=== PATIENT | female | born 1975 | race Caucasian/White ===

== ENCOUNTER 2022-11-18 18:36 | Emergency (ER) | payer OTHER, SELFPAY ==
[2022-11-18 18:48] VITALS: BP 115/84; PULSE 88; RESP 18; O2SAT 99
[2022-11-18 18:50] VITALS: BP 135/92; PULSE 70; RESP 22; TEMP 36.6; O2SAT 99; BMI 33.6
--- NOTE | 2022-11-18 19:30 | ED.NURSE ---
started #20 jelco as a saline lock in the LAC and able to draw the labs from site. POC trop started and pending results. patient is feeling nauseated and would like something for this.
[2022-11-18 19:46] VITALS: BP 118/82; PULSE 76; RESP 18; O2SAT 98; O2SAT 99
--- NOTE | 2022-11-18 19:46 | CRLHL7_ITS ---
For Patients: As a result of the Century Cures Act, medical imaging exams and procedure reports are released immediately into your electronic medical record. You may view this report before your referring provider. If you have questions, please contact your health care provider. INDICATION: Chest pain. TECHNIQUE: CT chest PE was acquired with 95 cc Isovue 370 IV contrast. COMPARISON: None. FINDINGS: Heart and vasculature: Contrast opacification of the pulmonary arterial tree is adequate. No sign of pulmonary embolism. Heart size is normal. Thoracic aorta and pulmonary artery are normal in caliber. Lungs and pleura: No suspicious nodules or infiltrates. No pleural effusions, pleural thickening, or pneumothorax. Lymph nodes/mediastinum: No mediastinal, hilar, or axillary adenopathy. Chest wall: No masses. Upper abdomen: No acute or significant findings. Bones: Unremarkable for age. IMPRESSION: No pulmonary embolism, as questioned. Please note that all CT scans at this facility use dose modulation, iterative reconstruction, and/or weight-based dosing when appropriate to reduce radiation dose to as low as reasonably achievable. Dictated by James Chen MD @ 11/18/2022 8:44:32 PM (Electronically Signed)
--- NOTE | 2022-11-18 19:46 | CRLHL7_ITS ---
For Patients: As a result of the Century Cures Act, medical imaging exams and procedure reports are released immediately into your electronic medical record. You may view this report before your referring provider. If you have questions, please contact your health care provider. DATE: 11/18/2022. CLINICAL HISTORY: Headache. TECHNIQUE: Standard helical CT image acquisition of the brain was performed. COMPARISON: None available. FINDINGS: There is no intracranial hemorrhage. No extra-axial collection, mass effect, or midline shift. Islas-white matter differentiation is preserved. The ventricles are normal in size and morphology for patient age. The calvarium is unremarkable. The orbits are unremarkable. The paranasal sinuses are unremarkable. The mastoid air cells are unremarkable. The soft tissues are unremarkable. IMPRESSION: No CT evidence of acute intracranial abnormality. Please note that all CT scans at this facility use dose modulation, iterative reconstruction, and/or weight-based dosing when appropriate to reduce radiation dose to as low as reasonably achievable. Dictated by Meet Jade MD @ 11/18/2022 8:53:03 PM (Electronically Signed)
--- NOTE | 2022-11-18 19:49 | ED_ITS ---
HPI - General Adult General Time Seen by Provider: 19:49 Date Seen: 11/18/22 Chief complaint: Chest Pain Stated complaint: Chest Pain/Heart Problem,Paramedics rec coming in Time Seen by Provider: 11/18/22 19:27 Source: patient Mode of arrival: ambulatory Limitations: no limitations History of Present Illness HPI narrative: Patient is a 39 year white female who has had problems for about a month with intermittent spells of tachycardia chest pain arm symptoms chest fluttering. She has consulted with her regular doctor through [facility], but also worked with a straw hat machine operator. She is currently got a ZIO patch onto her catch any arrhythmia. She was attempting to do a stress test and had 1 of these spells and had to stop the stress test. She reports she does not feel particularly anxious when these happen or prior them happening. She has been otherwise quite healthy and really has not had these since just after gi. She was recently [facility] and had negative troponins and a negative chest x-ray. She is following up with the straw hat machine operator at some point in the near future, and as mentioned as his eye patch on. At this time she still feels a little nauseated and dizzy and has benefitted from Zofran the past. She does not have chest pain. An ambulance was called, and they assessed her and felt she should be evaluated. But they did not bring her in. Related Data Allergies Allergy/AdvReac Type Severity Reaction Status Date / Time Penicillins Allergy Verified 11/18/22 20:02 Review of Systems Status of ROS: Reports: 10 or more systems reviewed and unremarkable except as noted in History and below PFSH PFS Social History Smoking Status: Light tobacco smoker What tobacco products do you use: cigarettes Do you use any of these nicotine containing products: None Second hand tobacco smoke exposure: Yes How often do you have a drink containing alcohol: never How often do you have six or more drinks on one occasion: Never AUDIT-C Alcohol total score: 0 Non-prescribed substance use: denies use service: No Exam Narrative: Exam Narrative: Objective: The patient is alert orient x3, vital signs unremarkable HEENT unremarkable no facial asymmetry mouth is clear neck is supple Chest is clear Heart rhythm regular heart murmur mild parasternal chest wall pain to palpation Abdomen benign soft no masses extremities without edema good peripheral perfusion Skin warm and dry Neurologic function is nonfocal Const: Vital Signs, click to edit/add: Vital Signs - 24 hr 11/18/22 18:50 11/18/22 19:46 11/18/22 18:48 Temperature 97.8 F Pulse Rate [Pulse Oximeter] 70 88 Respiratory Rate 22 18 Blood Pressure [Ri ght Upper Arm] 135/92 H 115/84 Pulse Oximetry 99 99 99 Oxygen Delivery Me thod Room Air Room Air 11/18/22 19:46 11/18/22 20:48 Temperature Pulse Rate [Pulse Oximeter] 76 92 Respiratory Rate 18 18 Blood Pressure [Ri ght Upper Arm] 118/82 122/76 Pulse Oximetry 98 99 Oxygen Delivery Me thod Room Air Room Air Course Vital Signs Vital signs: Initial Vital Signs Pulse Rate 88 11/18/22 18:48 Respiratory Rate 18 11/18/22 18:48 Respiratory Effort 11/18/22 18:48 Respiratory Depth Normal 11/18/22 18:48 Respiratory Pattern 11/18/22 18:48 Blood Pressure 115/84 11/18/22 18:48 Blood Pressure Mean 94 11/18/22 18:48 Blood Pressure Position Sitting 11/18/22 18:48 Pulse Oximetry 99 11/18/22 18:48 Oxygen Delivery Method 11/18/22 18:48 Vital Signs Pulse Rate 88 11/18/22 18:48 Respiratory Rate 18 11/18/22 18:48 Blood Pressure 115/84 11/18/22 18:48 Pulse Oximetry 99 11/18/22 18:48 Oxygen Delivery Method 11/18/22 18:48 Temperature 97.8 F 11/18/22 18:50 Pulse Rate 92 11/18/22 20:48 Respiratory Rate 18 11/18/22 20:48 Blood Pressure 122/76 11/18/22 20:48 Pulse Oximetry 99 11/18/22 20:48 Oxygen Delivery Method 11/18/22 20:48 Medical Decision Making MDM Narrative Medical decision making narrative: Patient has a complex history of intermittent 7 or 8 times having spells of fluttering chest, chest pain, arm pain, dizziness. The straw hat machine operator is evaluating her with a workup and has suggested neurology of Cardiology findings are not present. She has been largely healthy with no chronic health problems. Denies any significant anxiety issue. She is here at the recommendation of the paramedics. Her differential be long including arrhythmia of some sort, thoracic pathology, ADULT DAY CARE WORKER pathology. I discussed frankly with her and her that will unlikely find a etiology for all her spells, but would be reasonable to do some additional testing such as head CT scan, chest CT scan with contrast to rule out PE or other intrapulmonary pathology, laboratory studies, will give IV fluid and Zofran for her dizziness and nausea. Will also give her 0.5 mg IV Ativan. She will need to follow up with Cardiology in her regular doctor as described will check the above-mentioned studies, will also get a troponin level, CRP. Addendum: CT scan of the chest is negative for PE, head CT is negative, and EKG looks normal sinus rhythm troponin was negative other labs look reassuring. At this point would allow the patient go home light activity rest follow-up with Cardiology and primary care as planned continue the workup of her spells. Return here as needed. Lab Data Labs: Lab Results 11/18/22 11/18/22 11/18/22 Range/Units 19:30 19:30 19:30 WBC 10.71 (4.50-11.00) K/uL RBC 4.48 (4.00-5.20) m/uL Hgb 14.7 (12.0-16.0) gm/dL Hct 42.3 (33.0-51.0) % MCV 94 (80-100) fL MCH 33 (26-34) pg MCHC 35 (32-36) gm/dL RDW Coeff of Sheryl 12.0 (11.5-15.5) % Plt Count 287 (140-440) K/uL Neut % (Auto) 68.7 (42.0-72.0) % Lymph % (Auto) 19.2 L (20-44) % [place] % (Auto) 8.3 (0.0-11.0) % Eos % (Auto) 3.2 (0.0-7.0) % Baso % (Auto) 0.3 (0.0-3.0) % Neut # (Auto) 7.36 H (1.7-7.0) K/uL Lymph # (Auto) 2.10 (0.90-2.90) K/uL [place] # (Auto) 0.90 (0.00-0.90) K/UL Eos # (Auto) 0.34 (0.00-0.50) K/uL Baso # (Auto) 0.03 (0.00-0.30) K/uL Sodium 139 (135-149) mmol/L Potassium 3.8 (3.6-5.1) mmol/L Chloride 110 (96-114) mmol/L Carbon Dioxide 23 (20-32) mmol/L BUN 10 (5-24) mg/dL Creatinine 0.7 (0.5-1.5) mg/dL Estimated Creat Clear 88.44 Estimated GFR 107 ml/min Glucose 78 (60-115) mg/dL Calcium 9.0 (8.4-10.6) mg/dL Total Bilirubin 0.3 (0.1-1.5) mg/dL Direct Bilirubin 0.2 (0.0-0.5) mg/dL AST 24 (12-35) U/L ALT 28 (4-35) U/L Alkaline Phosphatase 53 (40-150) U/L Troponin I < 0.01 L (0.01-0.04) ng/mL C-Reactive Protein < 0.5 L (0.5-1.0) mg/dL NT-Pro-B Natriuret Pep < 20 pg/mL Total Protein 6.9 (6.0-8.3) g/dL Albumin 4.4 (3.3-5.0) g/dL POC Troponin I 0.00 L (0.01-0.04) ng/ml Discharge Plan Discharge Clinical Impression: Episode of dizziness Patient Disposition: Home w/ Parent or Adult Condition: Improved Instructions: Dizziness (ED) Additional Instructions: Light activity, fluids, follow-up with straw hat machine operator and primary care doctor as scheduled. Return to ED sooner problems concerns worsening. Activity Level: Light activity Discharge Diet: Regular Follow Up/Referrals: Provider,Not a Local [Primary Care Provider] - Stand Alone Forms: [employer] Info Instructions
[2022-11-18 20:03] LABS: Basophils Absolute Auto 0.03 K/uL (0.00-0.30); Basophils Percent Auto 0.3 % (0.0-3.0); Eosinophils Absolute Auto 0.34 K/uL (0.00-0.50); Eosinophils Percent Auto 3.2 % (0.0-7.0); Hematocrit 42.3 % (33.0-51.0); Hemoglobin* 14.7 gm/dL (12.0-16.0); Immature Granulocytes Abs Auto 0.03 K/uL (0.00-0.30); Immature Granulocytes Pct Auto 0.3 %; Lymphocytes Percent Auto 19.2 % (20-44); Mean Corpuscular HGB Conc 35 gm/dL (32-36); Mean Corpuscular Hemoglobin 33 pg (26-34); Mean Corpuscular Volume 94 fL (80-100); Monocytes Percent Auto 8.3 % (0.0-11.0); Neutrophils Absolute Auto 7.36 K/uL (1.7-7.0); Neutrophils Percent Auto 68.7 % (42.0-72.0); Platelet Count* 287 K/uL (140-440); Red Blood Count 4.48 m/uL (4.00-5.20); White Blood Count* 10.71 K/uL (4.50-11.00)
[2022-11-18] MEDS: ONDANSETRON 2 MG/ML inj 4 MG IVP (20:03)
[2022-11-18] MEDS: LORazepam 2 MG/ML inj 0.5 MG IVP (20:04)
[2022-11-18] MEDS: 0.9 % SODIUM CHLORIDE 1000 ml 1,000 ML 6000 ML IV (20:04)
--- NOTE | 2022-11-18 20:10 | ED.NURSE ---
up to the bathroom and was dizzy when up. walking slowly and stated should not be this hard or so much work. taken to ct via wc.
[2022-11-18 20:11] LABS: Slide Review Reflex No
[2022-11-18 20:15] LABS: Albumin* 4.4 g/dL (3.3-5.0); Chloride* 110 mmol/L (96-114); Sodium* 139 mmol/L (135-149)
[2022-11-18 20:16] LABS: Potassium* 3.8 mmol/L (3.6-5.1)
[2022-11-18 20:18] LABS: Carbon Dioxide* 23 mmol/L (20-32); Creatinine* 0.7 mg/dL (0.5-1.5); Est. Creatinine Clearance* 88.44; Estimated Glomerular Filt Rate 107 ml/min
[2022-11-18 20:19] LABS: Alanine Aminotransferase* 28 U/L (4-35); Alkaline Phosphatase* 53 U/L (40-150); Aspartate Amino Transferase* 24 U/L (12-35); Bilirubin Direct* 0.2 mg/dL (0.0-0.5); Bilirubin Total* 0.3 mg/dL (0.1-1.5); Blood Urea Nitrogen* 10 mg/dL (5-24); Glucose* 78 mg/dL (60-115); Total Protein* 6.9 g/dL (6.0-8.3)
[2022-11-18 20:41] LABS: C Reactive Protein* < 0.5 mg/dL (0.5-1.0); NT Pro B Type NatriureticPept* < 20 pg/mL; Troponin I* < 0.01 ng/mL (0.01-0.04)
[2022-11-18 20:48] VITALS: BP 122/76; PULSE 92; RESP 18; O2SAT 99
== END 2022-11-18 21:18 | disposition home or self-care (01) ==
PROVIDERS: Emergency Provider Family Medicine
DX: R42 Dizziness and giddiness (principal)
CPT/HCPCS: 36415; 70450; 71260; 80048; 80076; 83880; 84484; 85025; 86140; 93005; 94761; 96374; 96375; 99284; 99285; J2060; J2405; J7030; Q9967

== ENCOUNTER 2022-12-02 14:58 | Emergency (ER) | payer OTHER, SELFPAY ==
[2022-12-02 15:35] VITALS: BP 121/82; PULSE 85; RESP 18; TEMP 36.9; O2SAT 97; BMI 33.6
--- NOTE | 2022-12-02 16:08 | CRLHL7_ITS ---
For Patients: As a result of the Century Cures Act, medical imaging exams and procedure reports are released immediately into your electronic medical record. You may view this report before your referring provider. If you have questions, please contact your health care provider. DATE: 12/02/2022. CLINICAL HISTORY: Recent vertigo and tinnitus; new left pupillary dilatation. TECHNIQUE: Multi-sequence, multiplanar MRI examination of the brain was performed. Contrast: 15mL of Dotarem was administered intravenously. COMPARISON: Head CT dated 11/18/2022. FINDINGS: There is no restricted diffusion in the brain to indicate the presence of acute ischemia. No extra-axial collection, mass effect, or midline shift. Brain parenchymal signal, morphology, and volume are within normal limits for patient age. Ventricles are normal in size and morphology. There is no pathologic intracranial enhancement. The orbits are unremarkable. Mild mucosal thickening of the ethmoid cells The mastoid air cells are clear. The calvarium is unremarkable. IMPRESSION: Normal MRI of the brain. Dictated by Meet Jade MD @ 12/02/2022 9:58:20 PM (Electronically Signed)
--- NOTE | 2022-12-02 16:08 | CRLHL7_ITS ---
For Patients: As a result of the Century Cures Act, medical imaging exams and procedure reports are released immediately into your electronic medical record. You may view this report before your referring provider. If you have questions, please contact your health care provider. DATE: 12/02/2022. CLINICAL HISTORY: Possible left cranial nerve III palsy. TECHNIQUE: 3D TOF MRA of the head was performed. 3D MIP reformats were performed at an independent workstation. COMPARISON: None available. FINDINGS: The petrous, cavernous, and supraclinoid segments of the internal carotid arteries are within normal limits. The anterior and middle cerebral arteries are within normal limits. The anterior communicating artery is visualized and within normal limits. The intracranial vertebral arteries, basilar trunk, and posterior cerebral arteries are within normal limits. No intracranial proximal large vessel occlusion or flow-limiting luminal stenosis. No evidence of cerebral aneurysm or findings to suggest an arterial-venous shunting lesion. IMPRESSION: Normal MRA of the head. Dictated by Meet Jade MD @ 12/02/2022 9:51:33 PM (Electronically Signed)
[2022-12-02] MEDS: ACETAMINOPHEN 500 MG TABLET 1000 MG PO (17:06)
[2022-12-02] MEDS: LORazepam 2 MG/ML inj 1 MG IVP (17:06)
[2022-12-02 17:12] LABS: Basophils Absolute Auto 0.04 K/uL (0.00-0.30); Basophils Percent Auto 0.4 % (0.0-3.0); Eosinophils Absolute Auto 0.34 K/uL (0.00-0.50); Eosinophils Percent Auto 3.2 % (0.0-7.0); Hematocrit 41.9 % (33.0-51.0); Hemoglobin* 14.6 gm/dL (12.0-16.0); Immature Granulocytes Abs Auto 0.03 K/uL (0.00-0.30); Immature Granulocytes Pct Auto 0.3 %; Lymphocytes Absolute Auto 2.99 K/uL (0.90-2.90); Mean Corpuscular HGB Conc 35 gm/dL (32-36); Mean Corpuscular Hemoglobin 33 pg (26-34); Mean Corpuscular Volume 93 fL (80-100); Monocytes Percent Auto 7.9 % (0.0-11.0); Neutrophils Absolute Auto 6.44 K/uL (1.7-7.0); Neutrophils Percent Auto 60.2 % (42.0-72.0); Platelet Count* 297 K/uL (140-440); Red Blood Count 4.49 m/uL (4.00-5.20); White Blood Count* 10.68 K/uL (4.50-11.00)
[2022-12-02 17:17] LABS: Slide Review Reflex No
[2022-12-02 17:31] LABS: Chloride* 109 mmol/L (96-114); Sodium* 140 mmol/L (135-149)
[2022-12-02 17:32] LABS: Potassium* 3.9 mmol/L (3.6-5.1)
[2022-12-02 17:34] LABS: Creatinine* 0.8 mg/dL (0.5-1.5); Est. Creatinine Clearance* 77.39; Estimated Glomerular Filt Rate 91 ml/min
[2022-12-02 17:35] LABS: Blood Urea Nitrogen* 14 mg/dL (5-24); Calcium* 9.5 mg/dL (8.4-10.6); Carbon Dioxide* 21 mmol/L (20-32); Glucose* 77 mg/dL (60-115)
[2022-12-02 17:46] LABS: INR 0.98 (0.91-1.10); Prothrombin Time 13.6 Seconds
[2022-12-02 17:47] LABS: Partial Thromboplastin Time* 27 Seconds (23-33)
--- NOTE | 2022-12-02 18:09 | ED_ITS ---
HPI - General Adult General Date Seen: 12/02/22 Chief complaint: Neuro Symptoms/Altered Deficit Stated complaint: Dilated Pupil Neuro Concerns Time Seen by Provider: 12/02/22 15:48 Source: patient History of Present Illness HPI narrative: Patient is a 47-year-old woman referred here by the air transportation provider who she saw earlier today secondary to a possible eye injury. She was noted to have a dilated pupil on the left. She did scratch her eye possibly earlier today trying to remove the contact lens that she thought was maybe left on her eye, ultimately she did not have a retained contact lens. She noted her vision was blurry this morning, and was going after contact lens that was not there. She noted that her pupil was dilated, and was seen by Ophthalmology, who did not feel that this was traumatic injury, and referred her here for imaging. She further says that she has been having ?spells since October 26. She has been seen by her primary care physician as well as Cardiology for these to this point and has an appointment with Neurology later this month. She describes the spells as involving vertigo, tinnitus, left arm numbness and a sensation of brain fogginess and difficulty finding her words. She says that she and her have found that if she takes Dramamine and ibuprofen the symptoms resolve within about a half an hour, otherwise they can last up to 4-6 hours before they resolved. Symptoms are not exertional, can come on at any time, sometimes wake her from sleep. She had an entire cardiac workup which was negative including stress testing and Holter monitoring, although the Holter monitor actually has not been read yet. She had a CT scan of the head which was negative. She notes that she has had blurred vision for several months. She denies a visual field cut, she has not had any double vision, including today. She just feels like her vision has generally been blurry than usual. Today, her left eye is particularly blurry, and she notes some photophobia as well as some ophthalmoplegia. She has not noted any drooping of her eyelid. She does have fairly severe tinnitus today she says, and she feels like her hearing is decreased on the left as well. She has not noted any changes on the left side of her face in terms of sweating or temperature. She does not describe visual changes consistent with scotoma. She denies family history of vascular disease, no history of aneurysm. She denies any personal history of vascular disease. Related Data Home Medications Medication Instructions Recorded Confirmed albuterol sulfate 90 mcg/actuation inhalation 12/02/22 aerosol inhaler bupropion HCl 300 mg 24 hr tablet, mg PO 12/02/22 extended release citalopram 40 mg tablet mg 12/02/22 ipratropium bromide 42 mcg (0.06 intranasal 12/02/22 %) nasal spray levalbuterol tartrate 45 inhalation 12/02/22 mcg/actuation aerosol inhaler norethindrone acetate 5 mg tablet mg 12/02/22 omeprazole 40 mg capsule,delayed mg 12/02/22 release Allergies Allergy/AdvReac Type Severity Reaction Status Date / Time Penicillins Allergy Verified 11/18/22 20:02 Review of Systems Status of ROS: Reports: 10 or more systems reviewed and unremarkable except as noted in History and below [facility] Social History Smoking Status: Light tobacco smoker What tobacco products do you use: cigarettes Do you use any of these nicotine containing products: None Second hand tobacco smoke exposure: Yes How often do you have a drink containing alcohol: never How often do you have six or more drinks on one occasion: Never AUDIT-C Alcohol total score: 0 Non-prescribed substance use: denies use service: No Exam Narrative: Exam Narrative: Vital signs as noted above. In general, an alert, nontoxic woman. She is conversant, comfortable. Head: Normocephalic, atraumatic. Eyes: The left pupil is strongly dilated and fixed. Pupil is round without o bvious deformity. No response to direct or indirect light reflex. Extraocular movements are full, no diplopia. No nystagmus. Conjunctivae are normal. Visual hidalgo are full to confrontation. ENT: Mucous membranes are moist. Throat is normal. Tongue is midline. Neck: Supple without lymphadenopathy. No masses. No bruits. Heart: Regular rate and rhythm. No murmur or rub. Lungs: Clear bilaterally. No increased work of breathing, crackles or wheezes. Abdomen: Soft and nontender. No organomegaly. Extremities: Well perfused. No edema. No calf tenderness. Pulses intact. Neurologic: Patient is alert and oriented to person and place. Speech is fluent. Face is symmetric. Sensation is intact bilaterally. No ptosis. Moves all extremities equally. Affect: Normal. Skin: Warm and dry. Well perfused. Const: Vital Signs, click to edit/add: Vital Signs - 24 hr 12/02/22 15:35 Temperature 98.5 F Pulse Rate [Pulse Oximeter] 85 Respiratory Rate 18 Blood Pressure [Ri ght Upper Arm] 121/82 Pulse Oximetry 97 Oxygen Delivery Me thod Room Air Documenting provider has reviewed patient's vital signs: yes Course Course Hospital Course: Corneal exam was deferred as patient had an exam at the ophthalmology clinic. She reports that she was told to use lubricant drops but no other drops were prescribed. She had an EKG here which shows a normal sinus rhythm, ventricular rate of 74 beats per minute. CBC showed a normal white blood cell count 10.7, hemoglobin of 14.6, normal platelets. INR and PTT were normal, electrolytes normal, blood sugar was 77. She went on to have an MRI/MRA a of the brain. I have reviewed these images, and they were formally read by Radiology as normal, without evidence of mass, stroke, or aneurysm. She has been without any further symptoms in the emergency department, has been sleeping well awaiting results of her MRI. Overall, she has a month long history of indeterminate spells, with a negative cardiac workup and now a negative MRI MRA of the brain, with now an isolated dilated pupil. I do not find any other abnormal findings on neurologic exam to suggest a 3rd nerve palsy. She did scratch her eye this morning, and I suspect that the pupil defect is related to trauma. In the absence of any findings on MRI/MRA I think it is reasonable to let her go home. I do think she should follow up with Ophthalmology again to make sure that affect is resolving appropriately. With regard to her other spells, I think neurology follow-up is still appropriate. Etiology of these spells is unclear to me at this time. They may perhaps represent atypical migraine. I think seizure sounds unlikely. She does also note some hearing changes and tinnitus, and ENT followup may also be appropriate for consideration of Menniere's, although the left arm numbness is atypical. Vital Signs Vital signs: Initial Vital Signs Temperature 98.5 F 12/02/22 15:35 Temperature Source Temporal Artery Scan 12/02/22 15:35 Pulse Rate 85 12/02/22 15:35 Respiratory Rate 18 12/02/22 15:35 Blood Pressure 121/82 12/02/22 15:35 Blood Pressure Mean 95 12/02/22 15:35 Blood Pressure Position Sitting 12/02/22 15:35 Pulse Oximetry 97 12/02/22 15:35 Oxygen Delivery Method 12/02/22 15:35 Vital Signs Temperature 98.5 F 12/02/22 15:35 Pulse Rate 85 12/02/22 15:35 Respiratory Rate 18 12/02/22 15:35 Blood Pressure 121/82 12/02/22 15:35 Pulse Oximetry 97 12/02/22 15:35 Oxygen Delivery Method 12/02/22 15:35 Temperature 98.5 F 12/02/22 15:35 Pulse Rate 85 12/02/22 15:35 Respiratory Rate 18 12/02/22 15:35 Blood Pressure 121/82 12/02/22 15:35 Pulse Oximetry 97 12/02/22 15:35 Oxygen Delivery Method 12/02/22 15:35 Medical Decision Making Lab Data Labs: Lab Results 12/02/22 12/02/22 12/02/22 Range/Units 16:58 16:58 16:58 WBC 10.68 (4.50-11.00) K/uL RBC 4.49 (4.00-5.20) m/uL Hgb 14.6 (12.0-16.0) gm/dL Hct 41.9 (33.0-51.0) % MCV 93 (80-100) fL MCH 33 (26-34) pg MCHC 35 (32-36) gm/dL RDW Coeff of Sheryl 12.0 (11.5-15.5) % Plt Count 297 (140-440) K/uL Neut % (Auto) 60.2 (42.0-72.0) % Lymph % (Auto) 28.0 (20-44) % [place] % (Auto) 7.9 (0.0-11.0) % Eos % (Auto) 3.2 (0.0-7.0) % Baso % (Auto) 0.4 (0.0-3.0) % Neut # (Auto) 6.44 (1.7-7.0) K/uL Lymph # (Auto) 2.99 H (0.90-2.90) K/uL [place] # (Auto) 0.80 (0.00-0.90) K/UL Eos # (Auto) 0.34 (0.00-0.50) K/uL Baso # (Auto) 0.04 (0.00-0.30) K/uL INR 0.98 (0.91-1.10) APTT 27 (23-33) Seconds Sodium 140 (135-149) mmol/L Potassium 3.9 (3.6-5.1) mmol/L Chloride 109 (96-114) mmol/L Carbon Dioxide 21 (20-32) mmol/L BUN 14 (5-24) mg/dL Creatinine 0.8 (0.5-1.5) mg/dL Estimated Creat Clear 77.39 Estimated GFR 91 ml/min Glucose 77 (60-115) mg/dL Calcium 9.5 (8.4-10.6) mg/dL Discharge Plan Discharge Clinical Impression: Left pupil dilation due to trauma Patient Disposition: Home, Self-Care Condition: Stable Instructions: Photophobia (ED) Additional Instructions: Your MRI with and with out contrast as well as your MR angiogram of your brain are normal. There is no evidence of mass, stroke, or aneurysm. I would recommend that you call the Ophthalmology Clinic tomorrow because I think you should be seen there in follow-up to make sure that your pupil dilation resolves. In the meantime, I would recommend using dark sunglasses to protect your eye whenever outside, and indoors as needed. Neurology follow-up as pl anned. Consider ENT follow-up as well if and etiology is not forthcoming, given tinnitus and hearing changes. Prescriptions: No Action citalopram 40 mg tablet omeprazole 40 mg capsule,delayed release(DR/EC) norethindrone acetate 5 mg tablet Label Comments: TAKE 1 TABLET BY MOUTH DAILY albuterol sulfate 90 mcg/actuation HFA aerosol inhaler INHALATION Label Comments: INHALE 2 PUFFS BY MOUTH EVERY 6 HOURS ipratropium bromide 42 mcg (0.06 %) spray,non-aerosol INTRANASAL Label Comments: USE 2 SPRAYS IN EACH NOSTRIL FOUR TIMES DAILY bupropion HCl 300 mg tablet extended release 24 hr PO levalbuterol tartrate 45 mcg/actuation HFA aerosol inhaler INHALATION Label Comments: INHALE 2 PUFFS INTO THE LUNGS EVERY 4 HOURS NEEDED FOR SHORTNESS OF BREATH OR DIFFICULT BREATHING OR WHEEZING Follow Up/Referrals: Provider,Not a Local [Primary Care Provider] - Stand Alone Forms: [employer] Info Instructions
[2022-12-02 19:46] VITALS: BP 107/69; PULSE 72; RESP 16; O2SAT 93
== END 2022-12-02 19:53 | disposition home or self-care (01) ==
PROVIDERS: Emergency Provider Emergency Medicine
DX: S05.8X2A Other injuries of left eye and orbit, initial encounter (principal); W50.4XXA Accidental scratch by another person, initial encounter; Y93.9 Activity, unspecified; Y92.9 Unspecified place or not applicable; Y99.9 Unspecified external cause status; H57.04 Mydriasis
CPT/HCPCS: 36415; 70544; 70553; 80048; 85025; 85610; 85730; 93005; 96374; 99284; 99285; A9270; A9575; J2060

== ENCOUNTER 2023-12-29 22:01 | Emergency (ER) | payer OTHER, SELFPAY ==
[2023-12-29 22:06] VITALS: BP 134/81; PULSE 77; RESP 16; TEMP 36.4; O2SAT 98; BMI 38.3
--- NOTE | 2023-12-29 22:22 | ED.GENADULT ---
HPI - General Adult General Chief complaint: Dental/Oral/Mouth Injury/Pain Stated complaint: tooth infection Time Seen by Provider: 12/29/23 22:04 History of Present Illness HPI narrative: Pt reports tooth infection that was dx at the end of October. Was not given abx at that time due to recent abx use for another issue. Was advised to follow up with dental specialist but chose not to do so at that time because she did not feel like her infection was bad enough to seek care. Traveled to [place], now L-sided jaw and ear pain, ringing in L ear. Now has L-sided headache pain as well and was advised to come to ER due to concern of infection spreading. 48-year-old woman presenting emergency department concern of dental pain. Was advised by her primary care provider to be seen it yet tonight for concern of spreading infection. Is anticipating seeing I think tomorrow her dentist in clinic. Was apparently diagnosed with a dental infection at the end of October. Antibiotics were deferred as was diagnosed around that time also with small intestinal bacterial overgrowth. Ultimately saw GI and was given ?super strong? antibiotic that she anticipated would also address her presumed dental infection. She has not had any fever nor drainage. Denies cold sensitivity on the left side the site in question. Apparently cold sensitive on the right. About 10 days ago had significant sinus congestion which sounds to have faded and over the last couple of days has had increasing left-sided jaw and ear pain now with a ringing in her left ear. She has a sense of fullness in the left upper jaw area. She has left-sided generalized headache and is only surprise with this because she does have a history of migraines but this would be atypical. Later does also endorse a feeling of not being able to swallow some crud in her throat. As if it is uncomfortable. Related Data Home Medications Medication Instructions Recorded Confirmed albuterol sulfate 90 mcg/actuation inhalation 12/02/22 aerosol inhaler bupropion HCl 300 mg 24 hr tablet, mg PO 12/02/22 extended release citalopram 40 mg tablet mg 12/02/22 ipratropium bromide 42 mcg (0.06 intranasal 12/02/22 %) nasal spray levalbuterol tartrate 45 inhalation 12/02/22 mcg/actuation aerosol inhaler norethindrone acetate 5 mg tablet mg 12/02/22 omeprazole 40 mg capsule,delayed mg 12/02/22 release atorvastatin 20 mg tablet 20 mg PO DAILY 12/29/23 12/29/23 budesonide-formoterol HFA 160 2 puff inhalation BID 12/29/23 12/29/23 mcg-4.5 mcg/actuation aerosol inhaler (Symbicort) hydroxyzine pamoate 25 mg capsule 25 mg PO Q6H PRN muscle spasm 12/29/23 12/29/23 methocarbamol 500 mg tablet mg PO 12/29/23 promethazine 12.5 mg tablet 12.5 mg PO PRN 12/29/23 topiramate 50 mg tablet 50 mg PO BID 12/29/23 12/29/23 Allergies Allergy/AdvReac Type Severity Reaction Status Date / Time Penicillins Allergy Verified 11/18/22 20:02 Review of Systems Status of ROS: Reports: 6 or more systems reviewed and unremarkable except as noted in History and below [facility] Social History Smoking Status: Light tobacco smoker What tobacco products do you use: cigarettes Do you use any of these nicotine containing products: None Second hand tobacco smoke exposure: Yes How often do you have a drink containing alcohol: never How often do you have six or more drinks on one occasion: Never AUDIT-C Alcohol total score: 0 Non-prescribed substance use: denies use service: No Exam Narrative: Exam Narrative: Pleasant. Easily conversant. Does not sound congested in the nasopharynx. Head is atraumatic. Right TM is noninflamed. Circular defect in the 9 o'clock position but not with all holes through the TM that I can verify. No fluid in ear canal. Left TM with more scarring. Also noninflamed and what looks to be some bubbles within the tympanic membrane on circular defect also without full perforation. In the 3 o'clock position. Dentition is well repaired. Most molars are capped. I do not see inflammation in the periodontal tissue or the buccal mucosa. She is not particularly tender to palpation over the upper jaw or lower jaw. No parotid inflammation. No TMJ area tenderness. Dentition is not tender to percussion. Posterior oropharynx, soft palate, has some 8th inch blotches of erythema and look to be some mm size blisters above the uvula. No significant induration otherwise. Heart in regular rate. She is breathing easily. Skin is warm and dry. Neck is supple without lymphadenopathy. No supraclavicular crepitus. Const: Vital Signs, click to edit/add: Vital Signs - 24 hr 12/29/23 22:06 Temperature 97.6 F Pulse Rate [Pulse Oximeter] 77 Respiratory Rate 16 Blood Pressure [Ri ght Upper Arm] 134/81 Pulse Oximetry 98 Oxygen Delivery Me thod Room Air Documenting provider has reviewed patient's vital signs: yes Course Vital Signs Vital signs: Initial Vital Signs Temperature 97.6 F 12/29/23 22:06 Temperature Source Temporal Artery Scan 12/29/23 22:06 Pulse Rate 77 12/29/23 22:06 Respiratory Rate 16 12/29/23 22:06 Blood Pressure 134/81 12/29/23 22:06 Blood Pressure Mean 98 12/29/23 22:06 Pulse Oximetry 98 12/29/23 22:06 Oxygen Delivery Method Room Air 12/29/23 22:06 Vital Signs Temperature 97.6 F 12/29/23 22:06 Pulse Rate 77 12/29/23 22:06 Respiratory Rate 16 12/29/23 22:06 Blood Pressure 134/81 12/29/23 22:06 Pulse Oximetry 98 12/29/23 22:06 Oxygen Delivery Method Room Air 12/29/23 22:06 Temperature 97.6 F 12/29/23 22:06 Pulse Rate 77 12/29/23 22:06 Respiratory Rate 16 12/29/23 22:06 Blood Pressure 134/81 12/29/23 22:06 Pulse Oximetry 98 12/29/23 22:06 Oxygen Delivery Method Room Air 12/29/23 22:06 Medical Decision Making MDM Narrative Medical decision making narrative: I wonder if some throat discomfort from pharyngitis is radiating into her ear. Could precipitate migrainous type symptoms as well I suppose. Does endorse numerous ear tubes as a child and then a left-sided barotrauma with resultant perforation to the left TM as an adult. Imagine this could be amplified as well. I do not see evidence of runaway dental infection. Again no TMJ area pain. Will swab for COVID, influenza and strep. Does not feel she needs other treatment specifically for pain/migraine noting that she has medicine for that. Later did request blood draw looking for further indication of infection. no further events in emergency department. labs are reassuring. On reassessment Ms. Garza is sleeping. Alerts easily. Does not feel she needs any further interventions see patient discharge plan Lab Data Lab results reviewed: Yes I reviewed the patient's lab results Labs: Lab Results 12/29/23 12/29/23 Range/Units 22:45 22:55 WBC 10.85 (4.50-11.00) K/uL RBC 4.24 (4.00-5.20) m/uL Hgb 13.7 (12.0-16.0) gm/dL Hct 41.0 (33.0-51.0) % MCV 97 (80-100) fL MCH 32 (26-34) pg MCHC 33 (32-36) gm/dL RDW Coeff of Sheryl 12.1 (11.5-15.5) % Plt Count 291 (140-440) K/uL Neut % (Auto) 60.4 (42.0-72.0) % Lymph % (Auto) 27.1 (20-44) % Miner % (Auto) 7.5 (0.0-11.0) % Eos % (Auto) 3.4 (0.0-7.0) % Baso % (Auto) 0.4 (0.0-3.0) % Neut # (Auto) 6.56 (1.7-7.0) K/uL Lymph # (Auto) 2.94 H (0.90-2.90) K/uL Miner # (Auto) 0.80 (0.00-0.90) K/UL Eos # (Auto) 0.37 (0.00-0.50) K/uL Baso # (Auto) 0.04 (0.00-0.30) K/uL Abs Immat Gran (auto) 0.13 (0.00-0.30) K/uL Imm/Tot Granulo (auto) 1.2 % C-Reactive Protein 0.7 (0.5-1.0) mg/dL SARS-CoV-2 (PCR) Negative SARS-CoV-2 (Negative) Influenza Type A (PCR) Negative PCR FLU A (Negative) Influenza Type B (PCR) Negative PCR FLU B (Negative) Group A Strep DNA NOT DETECTED (Not Detectd) Discharge Plan Discharge Clinical Impression: Otalgia, Headache Patient Disposition: Home, Self-Care Condition: Stable Additional Instructions: Your labs are reassuring here today. Negative for COVID and influenza and strep. White count is normal as well. CRP, an inflammatory marker, is also normal. I would follow-up with your dentist as planned. As discussed I would be hesitant to prescribe further antibiotics for you given your complicated relatively recent history and without more evidence of clear infection here. You do appear to have a mild pharyngitis, likely viral. In the short term I would use ibuprofen and acetaminophen and anesthetic throat lozenges or sprays like Sucrets or Chloraseptic. Might sleep under the mist of a cool mist humidifier. Prescriptions: No Action citalopram 40 mg tablet omeprazole 40 mg capsule,delayed release(DR/EC) norethindrone acetate 5 mg tablet Hold Instructions: Doctor's Order Patient Comments: TAKE 1 TABLET BY MOUTH DAILY albuterol sulfate 90 mcg/actuation HFA aerosol inhaler INHALATION Patient Comments: INHALE 2 PUFFS BY MOUTH EVERY 6 HOURS ipratropium bromide 42 mcg (0.06 %) spray,non-aerosol INTRANASAL Patient Comments: USE 2 SPRAYS IN EACH NOSTRIL FOUR TIMES DAILY bupropion HCl 300 mg tablet extended release 24 hr PO levalbuterol tartrate 45 mcg/actuation HFA aerosol inhaler INHALATION Patient Comments: INHALE 2 PUFFS INTO THE LUNGS EVERY 4 HOURS NEEDED FOR SHORTNESS OF BREATH OR DIFFICULT BREATHING OR WHEEZING atorvastatin 20 mg tablet 20 mg PO DAILY promethazine 12.5 mg tablet 12.5 mg PO PRN hydroxyzine pamoate 25 mg capsule 25 mg PO Q6H PRN (Reason: muscle spasm) topiramate 50 mg tablet 50 mg PO BID budesonide-formoterol [Symbicort] 160-4.5 mcg/actuation HFA aerosol inhaler 2 puff inhalation BID methocarbamol 500 mg tablet PO Follow Up/Referrals: Provider,Not a Local [Primary Care Provider] - Stand Alone Forms: [employer] Info Instructions
--- OUTSIDE RECORDS SUMMARY | 2023-12-29 23:04 | XMS_ITS ---
Author Name Unknown Organization Unknown Patient Care team information Name Category Status Period Participants - - Proposed period not known -
--- OUTSIDE RECORDS SUMMARY | 2023-12-29 23:04 | XMS_ITS | Clinical Summary ---
Author Name Unknown Organization [facility] Address [address] [place] [address] Care Team Providers Care Picker Name Role Phone Carey Vuong MD Primary Care Provider [phone] Mehreen Scott MD Unavailable [phone] Carey Vuong MD Unavailable [phone] Prema Hitchcock PA-C Unavailable [phone] Harriet Lindsay Unavailable Unavailable Lavern Pope MD Unavailable [phone] Lavern Pope MD Unavailable [phone] Elmer Paul MD Unavailable [phone] Elmer Paul MD Unavailable [phone] Batool Torres NP Unavailable Marlene Benoit NP Unavailable [phone] Batool Torres NP Unavailable Allergies Active Allergy Reactions Criticality Noted Date Comments Penicillins Itching 04/02/2016 Medications Medication Sig Dispensed Refills Start Date End Date Status Multiple Vitamin (MULTI-VITAMIN) per tablet Take 1 tablet by mouth daily. 0 Active fish oil-omega-3 fatty acids 1000 MG capsule Take 1 capsule by mouth daily 0 Active norethindrone (AYGESTIN) 5 MG tablet Take 5 mg by mouth daily 0 1 Active ibuprofen (ADVIL/MOTRIN) 400 MG tablet Take 400 mg by mouth every 6 hours as needed 0 Active levocetirizine (XYZAL) 5 MG tablet Take 5 mg by mouth every evening 0 Active methocarbamol (ROBAXIN) 500 MG tabletIndication s:Neck pain,Acute left-sided low back pain without sciatica Take 1-2 tablets (500-1,000 mg) by mouth 3 times daily as needed for muscle spasms 60 tablet 3 3 Active fluticasone (FLONASE) 50 MCG/ACT nasal spray [place] 1 spray into both nostrils daily 0 Active fluticasone-salm eterol (AIRDUO RESPICLICK) 113-14 MCG/ACT inhalerIndicatio ns:Mild persistent asthma with acute exacerbation Inhale 1 puff into the lungs 2 times daily 1 each 4 3 Active Additional Information Patient not taking.Reported on 12/29/2023 albuterol (PROAIR HFA/PROVENTIL HFA/VENTOLIN HFA) 108 (90 Base) MCG/ACT inhalerIndicatio ns:Mild persistent asthma with exacerbation INHALE 2 PUFFS BY MOUTH EVERY 6 HOURS 8.5 g 1 3 Active citalopram (CELEXA) 40 MG tabletIndication s:Major depressive disorder, recurrent episode, moderate (H) Take 1 tablet (40 mg) by mouth daily 90 tablet 3 3 Active hyoscyamine (LEVSIN/SL) 0.125 MG sublingual tabletIndication s:Abdominal cramping Place 1-2 tablets (0.125-0.25 mg) under the tongue every 4 hours as needed for cramping Max dose 12 tabs in 24 hours. 45 tablet 1 3 Active buPROPion (WELLBUTRIN XL) 300 MG 24 hr tabletIndication s:Major depressive disorder, recurrent episode, moderate (H) TAKE 1 TABLET(300 MG) BY MOUTH EVERY MORNING 90 tablet 3 3 Active omeprazole (PRILOSEC) [address] capsule TAKE 1 CAPSULE BY MOUTH TWICE DAILY 30 MINUTES BEFORE BREAKFAST AND DINNER 0 3 Active Semaglutide-Weig ht Management (WEGOVY) 0.25 MG/0.5ML penIndications:C lass 2 obesity due to excess calories without serious comorbidity with body mass index (BMI) of 37.0 to 37.9 in adult Inject 0.25 mg Subcutaneous once a week 2 mL 0 3 Active Additional Information Patient not taking.Reported on 12/17/2023 Semaglutide-Weig ht Management (WEGOVY) 0.5 MG/0.5ML penIndications:C lass 2 obesity due to excess calories without serious comorbidity with body mass index (BMI) of 37.0 to 37.9 in adult Inject 0.5 mg Subcutaneous once a week After 4 weeks on 0.25 mg dose. 2 mL 1 4 Active Additional Information Patient not taking.Reported on 12/17/2023 naltrexone (DEPADE/REVIA) 50 MG tablet 25 mg by mouth twice daily. 30 tablet 5 3 Active omeprazole (PRILOSEC) [address] capsuleIndicatio ns:Gastroesophag eal reflux disease without esophagitis TAKE 1 CAPSULE(40 MG) BY MOUTH DAILY 90 capsule 1 3 Active topiramate (TOPAMAX) 25 MG tabletIndication s:Migraine without aura and without status migrainosus, not intractable Take 25 mg by mouth every evening for 1 week, then 25 mg twice daily for 1 week, then 25 mg every AM and 50 mg every PM for 1 week, then 50 mg twice daily and continue. 120 tablet 1 3 Active RESTASIS 0.05 % ophthalmic emulsion Apply 1 drop to eye every 12 hours 0 3 Active Probiotic Product (PROBIOTIC PO) 0 Active fluticasone-salm eterol (ADVAIR) 250-50 MCG/ACT inhalerIndicatio ns:Mild persistent asthma without complication Inhale 1 puff into the lungs every 12 hours 1 each 11 4 Active budesonide-formo terol (SYMBICORT) 160-4.5 MCG/ACT InhalerIndicatio ns:Mild persistent asthma without complication Inhale 2 puffs into the lungs 2 times daily 10.2 g 11 4 Active atorvastatin (LIPITOR) 20 MG tabletIndication s:Dyslipidemia Take 1 tablet (20 mg) by mouth daily 90 tablet 0 4 Active atorvastatin (LIPITOR) 20 MG tabletIndication s:Dyslipidemia Take 1 tablet (20 mg) by mouth daily 30 tablet 11 3 024 Discontinued(Re order (No AVS)) azelastine (ASTELIN) 0.1 % nasal sprayIndications :Seasonal allergic rhinitis due to other allergic trigger [place] 1 spray into both nostrils at bedtime 30 mL 11 3 024 Discontinued(Th erapy completed (No AVS)) metroNIDAZOLE (METROGEL) 0.75 % vaginal gel INSERT 1 APPLICATORFUL VAGINALLY EVERY DAY FOR 5 DAYS 0 3 024 Discontinued azithromycin (ZITHROMAX) 250 MG tablet 0 024 Discontinued predniSONE (DELTASONE) 20 MG tablet 0 024 Discontinued rifaximin (XIFAXAN) 550 MG TABS tablet Take by mouth every 8 hours 0 3 024 Discontinued(Th erapy completed (No AVS)) sulfamethoxazole -trimethoprim (BACTRIM DS) 800-160 MG tablet Take 1 tablet by mouth 2 times daily 0 024 Discontinued prednisoLONE acetate (PRED FORTE) 1 % ophthalmic suspension SHAKE LIQUID AND INSTILL 1 DROP IN LEFT EYE FOUR TIMES DAILY 0 3 024 Discontinued(Th erapy completed (No AVS)) Active Problems Problem Noted Date Diagnosed Date Class 2 severe obesity due t o excess calories with serious comorbidity in adult 12/17/2023 Mild alcohol use disorder, in sustained remissio n 12/24/2021 Class 2 obesity due to exces s calories without serious comorbidity with body mass index (BMI) of 37.0 to 37.9 in adult 09/25/2021 GERD without esophagitis 09/25/2021 Ovarian cyst 12/22/2020 LLQ abdominal pain 12/21/2020 Acute recurrent maxillary sinusitis 04/17/2020 Family history of melanoma 12/15/2019 Pelvic floor dysfunction 03/08/2019 OAB (overactive bladder) 03/05/2019 Mixed stress and urge urinary incontinence 03/05 Fecal urgency 03/05/2019 Dyspareunia in female 03/05/2019 Major depressive disorder, recurrent episode, mo derate 10/17/2015 Migraine with aura and witho ut status migrainosus, not intractable 07/14/2013 Symptomatic PVCs 07/02/2012 Overview: Saw EP cardiology 06/11. Holter revealed 8200 in 24 hours (9%) s/p successful ablation 07/31/12. Allergic rhinitis 06/08/2012 Tobacco use disorder 01/30/2004 Mild intermittent asthma Resolved Problems Problem Noted Date Diagnosed Date Resolved Date Class 2 severe obesity due t o excess calories with serious comorbidity in adult 08/19/20232022 Muscle weakness (generalized) 03/18/2019 03/30/2019 Myalgia of pelvic floor 03/08/201903/03 Urinary urgency 03/05/2019 12/24/2021 Medial epicondylitis, left 08/09/2016 1 01/01/2016 Lateral epicondylitis of left elbow 08/09/2016 10/31/2016 Cervicalgia 02/20/2015 03/15/2015 Knee pain 07/16/2012 09/08/2012 Abnormal gait 07/16/2012 09/08/2012 Health Skilled Nursing 04/13/2012 12/24/2021 Overview: Contacted the patient. nursing program coordinator introduced self and the program. Patient declined to participate. Will not open to care coordination. DX V65.8 REPLACED WITH 39607 HEALTH CUSTODIAL (03/08/2013) Moderate major depression 04/22/2011 CARDIOVASCULAR SCREENING; LD L GOAL LESS THAN 160 01/10/2010 08/07/2016 Neck pain 11/06/2009 12/22/2020 Headache 11/03/2009 03/15/2015 Overview: Problem list name updated by automated process. Provider to review and confirm Problem list name updated by automated process. Provider to review Pain in joint, lower leg 09/28/200305/2016 Encounters Date Type Department Care Team Description 12/29/2023 10:30 AM HEATER ENGINEER HELPER Office Visit [facility] [address] [place], [place] [id number] Marlene Benoit, ZENOBIA Lumbar radiculopathy (Primary Dx); DDD (degenerative disc disease), lumbar; Neck pain; Spondylosis of cervical region without myelopathy or radiculopathy; Cervical radiculopathy; Migraine without aura and without status migrainosus, not intractable; Major depressive disorder, recurrent episode, moderate (H) 12/29/2023 Telephone [place] [address] [facility] [address] [place] [phone] Lavern Pope MD Orders (Lab orders ) 12/29/2023 Refill [facility] [address] [facility] [address] [place] [phone] Lavern Pope MD Refill Request (lipitor) 12/29/2023 Travel 12/29/2023 [facility] Medical Advice [facility] [address] [place] [address] [address] [place] [phone] Kayleigh Alexander PA-C 12/26/2023 Travel 12/24/2023 [facility] Medical Advice [facility] [place] [address] [facility] [address] [place] [address] Marlene Benoit NP 12/23/2023 [facility] Medical [facility] [address] [facility] [address] [place] [phone] Harriet Lindsay 12/22/2023 [facility] Medical [facility] [address] [facility] [address] [place] [phone] Kayleigh Alexander PA-Lisa Forms 12/18/2023 [facility] Medical [facility] [address] [place] [phone] Elmer Paul MD 12/17/2023 3:30 PM HEATER ENGINEER HELPER Office Visit [address] [place] [phone] Elmer Paul MD Mild persistent asthma without complication (Primary Dx); Allergic rhinitis due to animal (cat) (dog) hair and dander 12/17/2023 10:00 AM HEATER ENGINEER HELPER Office Visit [address] [place] [phone] Kayleigh Alexander PA-C Major depressive disorder, recurrent episode, moderate (H) (Primary Dx); Generalized anxiety disorder 12/16/2023 8:30 AM HEATER ENGINEER HELPER Office Visit [facility] [address] [place] [address] Frank Becerra MD Preop general physical exam (Primary Dx); Arthritis of left shoulder region 12/16/2023 Travel 12/11/[address] [place] [phone] Kayleigh Alexander PA-C Appointment (Pre-op and STD paperwork) 12/11/[address] [place] [phone] Kayleigh Alexander PA-C 12/10/2023 [facility] Medical Advice [address] [place] [phone] Ericka Arora 12/08/[address] [place] [phone] Carey Vuong MD 12/03/[address] [place] [phone] Carey Vuong MD Call Back ([employer] wants to know if you have received the fax they sent on 12/02/2023. Fax was regarding her treatment plans. Disability forms that also needs to be completed as well. ) 12/02/2023 [facility] Medical Advice [address] [place] [phone] Carey Vuong MD 11/25/2023 10:00 AM HEATER ENGINEER HELPER Virtual Visit [address] [place] [phone] Kayleigh Alexander, EDVINC Major depressive disorder, recurrent episode, moderate (H) (Primary Dx); Depression with anxiety 11/18/2023 [facility] [address] [place] [phone] Carey Vuong MD Patient Inquiry; Forms 11/18/2023 My[facility] Medical Advice [facility] [address] [place] [address] Marlene Benoit NP 11/14/2023 1:15 PM HEATER ENGINEER HELPER Radiology Injection Office Visit [facility] [address] [place] [address] Marlene Benoit NP Burton, Annie L, MD Cervical radiculopathy (Primary Dx) 11/14/2023 Travel 11/14/2023 [facility] Medical Advice [address] [place] [phone] Carey Vuong MD 11/12/2023 [facility] Medical Advice [address] [place] [phone] Carey Vuong MD mental health therapy 11/12/2023 Travel 11/11/2023 Telephone [facility] [address] [place] [address] Marlene Benoit NP Refill Request (topiramate (TOPAMAX) 50 MG tablet) 11/06/[address] [place] [address] Carey Vuong MD Medication Refill 11/05/2023 8:20 AM HEATER ENGINEER HELPER Virtual Visit [address] [place] [phone] Carey Vuong MD Class 2 obesity due to excess calories without serious comorbidity with body mass index (BMI) of 35.0 to 35.9 in adult (Primary Dx); Alternating constipation and diarrhea; Abdominal cramping; Cervical radiculopathy 11/05/2023 Telephone [facility] [address] [place] [address] Pain Management Program, [facility] Procedure (C7-T1 ILESI ) 11/05/2023 My[facility] Medical Advice [address] [place] [phone] Karina Schneider 11/04/2023 8:00 AM HEATER ENGINEER HELPER Office Visit [facility] [address] [place] [address] Marlene Beniot NP Cervical radiculopathy (Primary Dx); Spondylosis of cervical region without myelopathy or radiculopathy 11/04/2023 My[facility] Medical Advice [address] [place] [phone] Carey Vuong MD 11/04/[address] [place] [phone] Carey Vuong MD Refill Request; New Med Request (Wegovy 0.25mg/0.5ml soaj) 11/04/2023 MyC Medical Advice [facility] [address] [place] [address] Marlene Benoit NP Class 2 obesity due to excess calories without serious comorbidity with body mass index (BMI) of 36.0 to 36.9 in adult 11/04/2023 Travel 10/29/2023 1:00 PM HEATER ENGINEER HELPER Office Visit [address] [place] [phone] Kayleigh Alexander PA-C Numbness and tingling of right thumb (Primary Dx) 10/29/2023 Telephone [facility] [place] [address] [facility] [address] [place] [phone] Danny Villegas PA-C 10/29/2023 Travel 10/28/2023 [facility] Medical Advice [facility] [place] [address] [facility] [address] [place] [address] Marlene Benoit NP 10/28/2023 [facility] Medical Advice [address] [place] [phone] Carey Vuong MD MyChart Communication 10/27/[address] [place] [phone] Carey Vuong MD Medication Refill 10/16/2023 [facility] Medical Advice [address] [place] [phone] Carey Vuong MD update 10/14/2023 [facility] Medical Advice [address] [place] [phone] Carey Vuong MD Depression 10/10/[address] [place] [phone] Harriet Lindsay Refill Request 10/10/2023 [facility] Medical Advice [address] [place] [phone] Carey Vuong MD Class 1 obesity due to excess calories with serious comorbidity and body mass index (BMI) of 31.0 to 31.9 in adult (Primary Dx); Major depressive disorder, recurrent episode, moderate (H); Class 2 obesity due to excess calories without serious comorbidity with body mass index (BMI) of 36.0 to 36.9 in adult; Abdominal cramping 10/08/2023 Refill [facility] [address] [place] [address] [address] [place] [phone] Carey Vuong MD Medication Refill 10/03/2023 [facility] Medical Advice [address] [place] [phone] Harriet Lindsay Arlyn 10/01/[address] [place] [phone] Carey Vuong MD Prior Auth - Medication (Wegovy 0.25mg/0.5ml soaj) 10/01/2023 [facility] Medical Advice [address] [place] [phone] Carey Vuong MD Outreach from Last 3 Months Immunizations Name Administration Dates Next Due COVID-19 12+ (2022-) (Pfizer) 09/23/2023 COVID-19 MONOVALENT 12+ (Pfizer) 03/19/2021,01/30 Influenza (IIV3) PF 07/31/2011 Influenza Vaccine >6 months,quad, PF ,08/18/2019,08/17/2018,2014 Nasal Influenza Vaccine 2-49 (FluMist) 09/24/2017 TDAP Vaccine (Adacel) 05/06/2018,02/01/2008 Tdap (Adult) Unspecified Formulation 05/06/2018, 02/01/2008 Family History Medical History Relation Comments Diabetes Brother Diabetes Father Diabetes Maternal Grandmother Neurologic Disorder Mother migraine Cerebrovascular Disease Paternal Grandfather Diabetes Paternal Grandfather Cardiovascular Paternal Grandmother Relation Status Comments Brother Alive Daughter Alive Laura Father Maternal Grandfather Alive Maternal Grandmother Alive Mother Alive Paternal Grandfather Paternal Grandmother Sister 1 Alive Sister 2 Alive Son Alive Remberto Social History Tobacco Use Types Packs/Day Years Used Date Smoking Tobacco: Former Cigarettes 0 10 Cigars Quit: 12/01/19 23 Passive Smoke Exposure: Past Smokeless Tobacco: Never Comments:smokes a single cig ar nightly Alcohol Use Standard Drinks/Week Comments Not Currently 6 (1 standard drink = 0.6 oz pur e alcohol) Social Connection and Isolat ion Panel [NHANES] Answer Date Recorded In a typical week, how many times do you talk on the phone with family, friends, or neighbors? More than three times a week 06/17/2022 How often do you get togethe r with friends or relatives? Once a week 06/17/2022 How often do you attend [facility] or christian services? More than 4 times per year 06/17/2022 Do you belong to any clubs o r organizations such as oriental orthodox groups, unions, fraternal or athletic groups, or school groups? No 06/17/2022 Attends Club or Organization Meetings Not on gerri e 06/17/2022 Are you , , di vorced, , never , or living with a partner? 06/17/2022 AUDIT-C Answer Date Recorded Q1: How often do you have a drink containing alcohol? Never 06/17/2022 Q2: How many drinks containi ng alcohol do you have on a typical day when you are drinking? Patient does not drink Q3: How often do you have si x or more drinks on one occasion? Never 06/17/2022 PHQ-2 Answer Date Recorded PHQ-2 Score 2 12/17/2023 [facility] - Occupational Stress Questionnaire Answer Date Recorded Do you feel stress - tense, restless, nervous, or anxious, or unable to sleep at night because your mind is troubled all the time - these days? To some extent 06/17/2022 Exercise Vital Sign Answer Date Recorde d On average, how many days pe r week do you engage in moderate to strenuous exercise (like a brisk walk)? 4 days 06/17/2022 On average, how many minutes do you engage in exercise at this level? 50 min 06/17/2022 Adolescent Education Answer Date Record ed Getting School Help Needed Not on file 09/03 Food Insecurity Answer Date Recorded Within the past 12 months, d id you worry that your food would run out before you got money to buy more? No 12/16/2023 Within the past 12 months, d id the food you bought just not last and you didn? t have money to get more? No 12/16/2023 Housing Stability Answer Date Recorded Do you have housing? Yes 12/16/2023 Are you worried about losing your housing? No 12/16/2023 Financial Resource Strain Answer Date R ecorded Within the past 12 months, h ave you or your family members you live with been unable to get utilities (heat, electricity) when it was really needed? No 12/16/2023 Transportation Needs Answer Date Record ed Within the past 12 months, h as lack of transportation kept you from medical appointments, getting your medicines, non-medical meetings or appointments, work, or from getting things that you need? No 12/16/2023 Interpersonal Safety Answer Date Record ed Do you feel physically and e motionally safe where you currently live? Yes 09/23/2023 Within the past 12 months, h ave you been hit, slapped, kicked or otherwise physically hurt by someone? No 09/23/2023 Within the past 12 months, h ave you been humiliated or emotionally abused in other ways by your partner or ex-partner? No 09/23/2023 Education Answer Date Recorded What is the highest level of school you have completed or the highest degree you have received? Some college, no degree 12/12/2019 Sex and Gender Information Value Date Recorded Sex Assigned at Female 12/12/2019 6:30 PM HEATER ENGINEER HELPER Gender Identity Female 12/12/2019 6:30 PM HEATER ENGINEER HELPER Sexual Orientation Straight 04/04/2021 12 :18 PM CDT Travel History Travel Start Travel End [place] 12/06/2023 12/12/2023 Last Filed Vital Signs Vital Sign Reading Time Taken Comments Blood Pressure 123/79 12/29/2023 10:12 AM HEATER ENGINEER HELPER Pulse 72 12/29/2023 10:12 AM HEATER ENGINEER HELPER Temperature 36.3 ??C (97.4 ??F) 12/17/2023 9:48 AM CS T Respiratory Rate 18 12/17/2023 9:48 AM HEATER ENGINEER HELPER Oxygen Saturation 97% 12/29/2023 10:12 AM HEATER ENGINEER HELPER Inhaled Oxygen Concentration - - Weight 104.3 kg (230 lb) 12/17/2023 2:58 PM HEATER ENGINEER HELPER pt reported Height 165.7 cm (5' 5.25) 12/17/2023 9:48 AM CS T Body Mass Index 37.98 12/17/2023 9:48 AM HEATER ENGINEER HELPER Plan of Treatment Upcoming Encounters Date Type Department Care Team (Late st Contact Info) Description 03/19/2024 3:30 PM CDT Office Visit [facility] [address] [facility] [address] [place] [phone] Elmer Paul MD [address] [facility] [address] [place] [address] 04/16/2024 8:30 AM CDT Lab [facility] [address] [facility] [address] [place] [phone] 04/20/2024 8:45 AM CDT Office Visit [facility] [address] [facility] [address] [place] [phone] Lavern Pope MD [address] [facility] [address] [place] [address] Health Maintenance Due Date Last Done Comments CT COLONOGRAPHY 1974 FIT 1974 FLEX SIG 1974 HEPATITIS B IMMUNIZATION (1 of 3 - 3-dose series) 1974 sDNA (Cologuard) 1974 Pneumococcal Vaccine: Pediatrics (0 to 5 Years) and At-Risk Patients (6 to 64 Years) (1 of 2 - PCV) 1980 ASTHMA ACTION PLAN 05/01/2022 05/01/2021, 0 05/01/2021, 05/06/2018, Additional history exists ASTHMA CONTROL TEST 04/28/2024 10/29/2023, 09/23/2023, 06/10/2023, Additional history exists YEARLY PREVENTIVE VISIT 06/09/2024 06/09/20 23, 06/17/2022, 05/27/2022, Additional history exists ZOSTER IMMUNIZATION (1 of 2) 2024 PHQ-9 06/16/2024 12/17/2023, 12/01, 10/14/2023, Additional history exists MAMMO SCREENING 08/01/2024 07/22/2022, 07/02, 07/14/2020, Additional history exists Postponed from 07/22/2023 (Other) ANNUAL REVIEW OF HM ORDERS 09/23/202409/23, 06/17/2022, 05/01/2021 PAP 08/19/2025 08/19/2022, 10/31, 10/23/2015, Additional history exists ADVANCE CARE PLANNING 06/04/2026 06/04/2021 LIPID 11/22/2027 11/22/2022, 08/01, 10/17/2015, Additional history exists DTAP/TDAP/TD IMMUNIZATION (5 - Td or Tdap) 05/06/2028 05/06/2018, 05/06/2018, 02/01/2008, Additional history exists COLONOSCOPY 03/25/2032 03/25/2022, 04/0 03/2022, 02/16/2019 COLORECTAL CANCER SCREENING 03/25/2032 MIGRAINE ACTION PLAN Completed 12/05/2014, 07/14/2013, 05/26/2012, Additional history exists DEPRESSION ACTION PLAN Completed 8, 12/03/2017, 10/17/2015, Additional history exists HIV SCREENING Completed 12/15/2019 HEPATITIS C SCREENING Completed 05/01/2021 COVID-19 Vaccine Completed 09/23/2023, , 03/19/2021, Additional history exists INFLUENZA VACCINE Completed 09/23/2023, , 08/17/2018, Additional history exists HPV IMMUNIZATION Aged Out No longer e ligible based on patient's age to complete this topic IPV IMMUNIZATION Aged Out No longer e ligible based on patient's age to complete this topic MENINGITIS IMMUNIZATION Aged Out No l onger eligible based on patient's age to complete this topic RSV MONOCLONAL ANTIBODY Aged Out No l onger eligible based on patient's age to complete this topic Medical Devices Implanted Type Area Soap Chipper Device Identifier Shelf Expiration Date Model / Serial / Lot Wire Arya [id number] Implanted:Qty: 1 on 06/29/2012 at [facility] [employer] DARA 78.2530 / / Procedures Procedure Name Priority Date/Time Associated Diagnosis Comments URINE CULTURE Routine 12/18/2023 3:51 PM HEATER ENGINEER HELPER Unspecified symptoms and signs involving the genitourinary system UPPER GI ENDOSCOPY - HIM SCAN 12/02/2023 12:00 AM HEATER ENGINEER HELPER PAIN INTERLAMINAR EPIDURAL STRD INJ CERVICAL Routine 11/14/2023 1:36 PM HEATER ENGINEER HELPER Cervical radiculopathy from Last 3 Months Results * Urine Culture (12/18/2023 3:51 PM HEATER ENGINEER HELPER) Culture No Growth 12/20/2023 5:53 AM HEATER ENGINEER HELPER [facility] Urine URINE SPECIMEN OBTAINED BY CLEAN CATCH PROCEDURE / Unknown Non-blood Collection / Unknown 12/18/2023 3:51 PM HEATER ENGINEER HELPER 12/18/2023 8:01 PM HEATER ENGINEER HELPER Kaycee Rea MD LAB - MICRO GENERA L ORDERABLES [facility] Inf. Diseases Diag. Lab [address] [facility], [address] [place] [id number], [facility] [phone] * UPPER GI ENDOSCOPY - HIM SCAN (12/02/2023 12:00 AM HEATER ENGINEER HELPER) 12/02/2023 Provider Outside PROCEDURES * PAIN Translaminar Epidural Steroid Injection Cervical (11/14/2023 1:36 PM HEATER ENGINEER HELPER) Anatomical Region Laterality Modality PAIN/SPINE Radio Fluoroscop y Narrative 11/14/2023 2:19 PM HEATER ENGINEER HELPER Table formatting from the original result was not included. Images from the original result were not included. [facility] - Procedure Note Date of Visit: 11/14/2023 Procedure performed: C7-T1 interlaminar epidural steroid injection with fluoroscopic guidance Diagnosis: Cervical spondylosis; Cervical radiculitis/radiculopathy Customer Energy Specialist: Eden Linn MD Anesthesia: none Indications: Danielle Garza is a 48 year old female who is seen at the request of Marlene Benoit CNP for cervical epidural steroid injection. The patient describes neck pain with radiation into the left arm and headaches. The patient has been exhibiting symptoms consistent with cervical intraspinal inflammation and radiculopathy. Symptoms have been persistent, disabling, and intermittently severe. The patient reports minimal improvement with conservative treatment, including previous injections, PT and medications. This is a repeat injection. ??Previous KELLY done by myself on 07/16/2023 & 01/13/2023 provided good pain relief for a period of 3 months. S/P lumbar L4-5 ILESI 05/30/2023 Cervical MRI was done on 09/13/2022 which showed ? IMPRESSION: 1. Multilevel degenerative changes of the cervical spine, as described. 2. Mild spinal canal stenosis at C6-C7. Otherwise, no significant spinal canal narrowing. 3. Multilevel neural foraminal stenosis, greatest on the right at C4-C5 and C5-C6. Please see the body of the report for details. Allergies: Allergies Allergen Reactions ? ? Penicillins Itching Vitals: BP 133/72 (BP Location: Left arm, Cuff Size: Adult Regular) ?? Pulse 67 ?? LMP ??(LMP Unknown) ?? SpO2 98% Review of Systems: The patient denies recent fever, chills, illness, use of antibiotics or anticoagulants. All other 10-point review of systems negative. Procedure: The procedure and risks were explained, and informed written consent was obtained from the patient. Risks include but are not limited to: infection, bleeding, increased pain, and damage to soft tissue, nerve, muscle, and vasculature structures. After getting informed consent, patient was brought into the procedure suite and was placed in a prone position on the procedure table. A Pause for the Cause was performed. Patient was prepped and draped in sterile fashion. The C7-T1 interspace was identified with use of fluoroscopy in AP view. A 25-gauge, 1.5 inch needle was used to anesthetize the skin and subcutaneous tissue entry site with a total of 2 ml of 1% lidocaine. Under fluoroscopic visualization, a 22-gauge, 3.5 inch Tuohy epidural needle was slowly advanced towards the epidural space a few millimeters left of midline. The latter part of the needle advancement was guided with fluoroscopy in the lateral view. The epidural space was identified using loss of resistance technique. After negative aspiration for heme and cerebrospinal fluid, a total of 1 mL of non-ionic contrast was injected to confirm needle placement. 0 mL of contrast was wasted. Epidurogram confirmed spread within the posterior epidural space. 2 ml of 10mg/ml of dexamethasone and 1 ml of preservative free 1% lidocaine was injected. The needle was removed. ??Images were saved to PACS. The patient tolerated the procedure well, and there was no evidence of procedural complications. No new sensory or motor deficits were noted following the procedure. The patient was stable and able to ambulate on discharge home. Post-procedure instructions were provided. Pre-procedure pain score: 3/10 in the neck, 3/10 in the arm Post-procedure pain score: 3/10 in the neck, 3/10 in the arm Assessment/Plan: Danielle Garza is a 48 year old female s/p cervical interlaminar epidural steroid injection today for cervical spondylosis and radiculitis/radiculopathy. 1. Following today's procedure, the patient was advised to contact the Pain Management Center for any of the following: Fever, chills, or night sweats New onset of pain, numbness, or weakness Any questions/concerns regarding the procedure If unable to contact the Pain Center, the patient was instructed to go to a local Emergency Room for any complications. 2. Follow-up with the referring provider in 2 weeks for post-procedure evaluation. EDEN LINN MD Pain Management Eden Linn MD IMG PAIN MANAGEMENT ORDERABLES from Last 3 Months Advance Directives For more information, please contact: [phone] Latest Code Status on File Code Status Date Activated Date Inactivated Comments Full Code 12/21/2020 5:50 PM 12/22/2020 8:35 PM All b asic and advanced life-sustaining interventions are performed as appropriate Question Answer Comments Code status determined by: Discussion with patient/ legal decision maker Code Status History Code Status Date Activated Date Inactivated Comments Full Code 06/29/2012 8:14 AM 01/27/2019 11:59 AM Care Teams Picker Relationship Specialty Start Date End Date Carey Vuong MD [address] [place] [address] [place] [id number] PCP - General 01/15/02 Mehreen Scott MD [address] [facility] [address] [place] [phone] certified phlebotomy technician 12/15/19 Carey Vuong MD [address] [place] [address] [place] [id number] Assigned PCP 02/22/21 Prema Hitchcock PA-C [address] [place] [id number] Assigned Surgical Provider 11/04/21 Harriet Lindsay Personal Advocate & Liaison (PAL) 06/17/22 Lavern Pope MD [address] [place] [id number] Cardiovascular Disease 11/11/22 Lavern Pope MD [address] [place] [id number] Assigned Heart and Vascular Provider 11/16/22 Elmer Paul MD [address] [place] [address] Allergy & Immunology 02/17/23 Elmer Paul MD [address] [place], [place] [id number] Assigned Allergy Provider 04/26/23 Batool Torres NP [address] [place] [address] Nurse Practitioner Pulmonary Disease 08/11/23 [place] [address] [address] [place] [address] Nurse Practitioner Nurse Practitioner 10/29/23 Batool Torres NP [address] [place] [id number] Assigned Pulmonology Provider 12/25/23
--- OUTSIDE RECORDS SUMMARY | 2023-12-29 23:04 | XMS_ITS | Continuity of Care Document ---
Author Name Unknown Organization [facility] Address [address] [address] [place] [address] Phone Care Team Providers Care General Claims Agent Name Role Phone Sheyla BATES, Chandler Unavailable Unavailable Allergies, Adverse Reactions, Alerts Substance Reaction Status Criticality PENICILLIN hiveshives Active No Information Medications Medication Instructions Dosage Effective Dates (start - stop) Status Comments promethazine 12.5 mg tablet take 1 tablet by oral route as needed up to 2 times every day before meals - Active Xifaxan 550 mg tablet sample medication - Active bupropion HCl XL 300 mg 24 hr tablet, extended release take 1 tablet by oral route every day 300 MG - Active naltrexone 50 mg tablet take 1 tablet by oral route every day 50 MG - Active norethindrone acetate 5 mg tablet take 1 tablet by ORAL route every day during second half of the menstrual cycle 5 MG - Active Restasis 0.05 % eye drops in a dropperette instill 1 drop by Ophthalmic route 2 times every day as needed 1 drop - Active ciprofloxacin 500 mg tablet take 1 tablet by oral route 2 times every day 500 MG - Active Xifaxan 550 mg tablet take 1 tablet by oral route 3 times every day 550 MG - Active neomycin 500 mg tablet take 1 Tablet by oral route 2 times every day 500 MG - Active OMEPRAZOLE 20MG CAPSULES TAKE 1 CAPSULE BY MOUTH TWICE DAILY 30 MINUTES BEFORE BREAKFAST AND DINNER - Active Linzess 290 mcg capsule take 1 capsule by oral route every day on an empty stomach at least 30 minutes before 1st meal of the day 290 MCG - Active Bactrim DS 800 mg-160 mg tablet take 1 tablet by oral route 2 times every day 1 tablet - Active Arnuity Ellipta 50 mcg/actuation powder for inhalation inhale 1 spray by nasal route 1 - 2 times every day 1 spray - Active atorvastatin 20 mg tablet take 1 tablet by oral route every day 20 MG - Active Golytely 236 gram-22.74 gram-6.74 gram-5.86 gram oral solution Drink 1 L today, and another 1L/day until clear. - Active Okay to dispense generic equivalent. Procedure date: ciprofloxacin 500 mg tablet take 1 tablet by oral route every 12 hours 500 MG - Active dicyclomine 10 mg capsule take 1 capsule by oral route 3 times daily as needed - Active citalopram 40 mg tablet take 1 tablet by oral route every day 40 MG - Active Ventolin HFA 90 mcg/actuation aerosol inhaler inhale 1 puff by INHALATION route every day as needed as needed 1 puff - Active Zyrtec 10 mg tablet take 1 tablet by oral route every day as needed 10 MG - Active Procedures Procedure Date Ugi Endo; W/insrt Guide Wire Ugi Endo; W/bx 1/mx Level Iv-surg Path Gross/micro Offic/outpt E&m Estab Mod-hi 2 23 Dietitian New Virtual Visit Breath Test Glucose Breath Test Lactose Offic/outpt E&m Estab Mod-hi 2 23 Established Level 3 Established Level 4 Colonoscopy Flex; Dx (sep Pro) Ugi Endo; W/insrt Guide Wire Ugi Endo; W/bx 1/mx Level Iv-surg Path Gross/micro 19 Colonoscopy Flex; W/remov Les- 19 Colonoscopy Flex; W/bx 1/mx Level Iv-surg Path Gross/micro 19 Offic/outpt E&m New Mod-hi Routine Serum Collection Stool Kits Given Gg; Iga, Igd, Igg, Igm, Ea C. Difficile Toxin Gene, GALA Ugi Endo; W/bx 1/mx Advance Directives Directive Yes / No Effective Date File Name No Information Encounters Encounter Description Practice Location Reason(s) For Visit Diagnoses Date Provider Providers Copied on Encounter [facility], [address] [address], [place], [id number], [place] tel:[phone] [facility] No Information 4 Sheyla Arteaga. [address] [facility], [facility] [address], [place], [place], [id number] , [place]. tel: [phone] [facility], [address] [address], [place], [id number], [place] tel:[phone] [facility] Constipation, unspecified constipation typeDiarrhea, unspecified type 4 Sheyla Arteaga. [address] [facility], [facility] [address], [facility] [place], [id number] , [place]. tel: [phone] Referring Provider: Chandler Carrion MD, [address] [facility] [address], [place], [address]. tel:[phone] [facility], [address] [address], [place], [address], [place] tel:[phone] [facility] Melena 4 Sheyla Arteaga. [address] [facility], [facility] [address], [place], [place], [address] , [place]. tel: [phone] [facility], [address] [address], [place], [address], [place] tel:[phone] Dax [facility] GI Symptoms or Concerns (chief complaint) Other dysphagiaHiatal herniaOther dysphagiaDiaphra gmatic hernia without obstruction or gangrene 4 Duane Navas. [address] [facility], [address], [place], [place], [address] , [place]. tel: [phone] Referring Provider: Referral Self, USE FOR SELF REFERRALS. [facility], [address] [address], [place], [address], [place] tel:[phone] [facility] No Information 3 Sheyla Toscanoil. [address] [facility], [facility] [address], [place], [place], [address] , [place]. tel: [phone] [facility], [address] [address], [place], [address], [place] tel:[phone] [facility] No Information 3 Sheyla Arteaga. [address] [facility], [facility] [address], [place], [place], [address] , [place]. tel: [phone] Offic/outpt E&m Estab Mod-hi 2 [facility], [address] [address], [place], [place], [address], [place] tel:[phone] [facility] GI Symptoms or Concerns (chief complaint) Esophageal dysphagiaSmall intestinal bacterial overgrowth (SIBO)Constipati on due to outlet dysfunction 3 Sheyla Arteaga. [address] [facility] [address], [place], [place], [address] , [place]. tel: [phone] Referring Provider: Referral Self, USE FOR SELF REFERRALS. [facility], [address] [address], [place], [address], [place] tel:[phone] [facility] No Information 3 Shakira Love. [address] [facility], [address], [place], [address], [place]. tel: [phone] [facility], [address] [address], [place], [address], [place] tel:[phone] [facility] No Information 3 Shakira Love. [address] [facility], [facility] [address], [place], [address], [place]. tel: [phone] [facility], [address] [address], [place], [address], [place] tel:[phone] [facility] GI Symptoms or Concerns (chief complaint) Abdominal distension (gaseous)General ized abdominal painDietary counseling and surveillance 3 Charli Jolly. [address] [facility], [facility] [address], [place], [place], [address] , [place]. tel: [phone] Referring Provider: Referral Self, USE FOR SELF REFERRALS. [facility], [address] [address], [place], [address], [place] tel:[phone] [facility] No Information 3 Shakira Love. [address] [facility], [facility] [address], [place], [address], [place]. tel: [phone] [facility], [address] [address], [place], [place], [address], [place] tel:[phone] [facility] Diarrhea, unspecified type 3 Shakira Love. [address] [facility], [address], [place], [address], [place]. tel: [phone] [facility], [address] [address], [place], [address], [place] tel:[phone] [facility] No Information 3 Shakira Love. [address] [facility], [facility] [address], [place], [address], [place]. tel: [phone] [facility], [address] [address], [place], [address], [place] tel:[phone] [facility] No Information 3 Shakira Love. [address] [facility], [address], [place], [address], [place]. [phone] [facility], [address] [address], [place], [id number], [place] tel:[phone] [facility] Abdominal distension (gaseous) Sep- 3 Anshu Moncada. [address] [facility], [facility] [address], [place], [id number] , [place]. [phone] Referring Provider: Antwan Brasher MD, [address] [facility] [address], [place], [address]. [phone] [facility], [address] [address], [place], [id number], [place] tel:[phone] [facility] Abdominal distension (gaseous) Sep- 3 Anshu Moncada. [address] [facility], [facility] [address], [place], [address] , [place]. [phone] Referring Provider: Antwan Brasher MD, [address] [facility] [address], [place], [address]. [phone] Offic/outpt E&m Estab Mod-hi 2 [facility], [address] [address], [place], [id number], [place] tel:[phone] [facility] GI Symptoms or Concerns (chief complaint) Previous History Review (chief complaint) Flatulence/gas pain/belchingChr onic constipationHear tburn 3 Shakira Love. [address] [facility], [address], [place], [address], [place]. [phone] Referring Provider: Referral Self, USE FOR SELF REFERRALS. Established Level 3 [facility], [address] [address], [place], [place], [id number], [place] tel:[phone] [facility] GI Symptoms or Concerns (chief complaint) Diarrhea, unspecified typeFlatulence/g as pain/belching 2 Cass Rdz. [address] [facility], [address], [place], [place], [address] , [place]. [phone] Referring Provider: Referral Self, USE FOR SELF REFERRALS. Established Level 4 [facility], [address] [address], [place], [address], [place] tel:[phone] [facility] GI Symptoms or Concerns (chief complaint) Flatulence/gas pain/belchingNau seaGeneralized abdominal painChronic constipationIrre gular bowel habitsFrequent bowel movements Apr-2 2 Cass Rdz. [address] [facility], [address], [place], [place], [address] , [place]. [phone] Referring Provider: Referral Self, USE FOR SELF REFERRALS. [facility], [address] [address], [place], [address], [place] tel:[phone] [facility] GI Symptoms or Concerns (chief complaint) History of adenomatous polyp of colonInternal hemorrhoidsEncou nter for screening for malignant neoplasm of colonOther hemorrhoidsPerso nal history of colonic polyps Apr-0 2 Jaciel Hager. [address] [facility], [address], [place], [place], [address] , [place]. [phone] Referring Provider: Referral Self, USE FOR SELF REFERRALS. [facility], [address] [address], [place], [place], [address], [place] tel:[phone] [facility] Esophageal dysphagiaGlobus sensationDysphag ia, unspecifiedOther somatoform disorders Mar-2 9 Cruz Chauhan. [address] [facility], [address], [place], [place], [address] , [place]. [phone] Referring Provider: Referral Self, USE FOR SELF REFERRALS. [facility], [address] [address], [place], [address], [place] tel:[phone] [facility] Dysphagia, unspecified Mar-2 9 Pauline Renae . [address] [facility], [address], [place], [place], [address] , [place]. tel: [phone] [facility], [address] [address], [place], [address], [place] tel:[phone] [facility] Colorectal polypsInternal hemorrhoidsDiarr hea, unspecifiedBenig n neoplasm of cecumBenign neoplasm of transverse colonBenign neoplasm of cecum 9 Jaciel Hager. [address] [facility], [address], [place], [place], [address] , [place]. tel: [phone] Referring Provider: Referral Self, USE FOR SELF REFERRALS. Offic/outpt E&m [facility], [address] [address], [place], [place], [address], [place] tel:[phone] [facility] GI Symptoms or Concerns (chief complaint) Diarrhea, unspecified typeDietary counseling and surveillance Jaciel Hager. [address] [facility], [address], [place], [place], [address] , [place]. tel: [phone] Referring Provider: Carey Navarrete, [facility] [facility], [place], [address]. [phone] [facility], [address] [address], [place], [address], [place] tel:[phone] [facility] Dysphagia, UnspecifiedDysph agia, unspecified Aug- 4 Alejandro Xiao. [address] [facility], [address], [place], [place], [address] , [place]. tel: [phone] Referring Provider: Referral Self, USE FOR SELF REFERRALS. [facility], [address] [address], [place], [address], [place] tel:[phone] [facility] No Information 4 Alejandro Xiao. [address] [facility], [address], [place], [place], [address] , [place]. tel: [phone] Referring Provider: Carey Navarrete, [address] [place], [address]. tel:[phone] Family History Family Member Type Diagnosis Age At Onset Daughter Problem (finding) Alcoholism Sister Problem (finding) Irritable bowel syndrom e Mother Problem (finding) Diverticular disease Brother Problem (finding) IBS Father Problem (finding) alcoholism Mother Problem (finding) gallbladder disease Sister Problem (finding) Colon polyps Daughter Problem (finding) Irritable bowel syndrom e Mother Problem (finding) GERD Son Problem (finding) asthma Mother Problem (finding) asthma Father Problem (finding) malignant melanoma Brother Problem (finding) alcoholism Father Problem (finding) Colon polyps Sister Problem (finding) IBS Mother Problem (finding) Colon polyps Brother Problem (finding) Colon polyps Sister Problem (finding) Asthma Immunizations Vaccine Date Status Comments Influenza, injectable, MDCK, preservative free Flucelvax Quad 2018-2019Y administered Source: O ther Provider Payers Payer name Insurance type Covered republican ID Authoriza tiisaac(s) [facility] [id number] Social History Type Description Quantity Date Captured Comments Alcohol Use Details Unknown Caffeine Use Details Unknown Tobacco Use Status No Information Smoking Status No Information Sex Female Chief Complaint And Reason For Visit No Information Reason For Referral Reason For Referral No Information Plan Of Treatment Date Type Action Status Goal Lifestyle education regardin g diet completed Referral Ordered: CT Enterography With Contrast Per Radiology Appointment date/timeframe: 12/30/2023 ordered Referral Ordered: referred to [facility] for Constipation/Outlet Obstruction First Available Appointment date/timeframe: 01/12/2024 ordered Referral Ordered: referred to [facility] Low FODMAP diet, patient with suspecte ordered Referral Ordered: Gastric Emptying Study (4 Hours) Appointment date/timeframe: 04/05/2022 ordered Referral Ordered: Ultrasound Abdomen Appointment date/timeframe: 04/12/2022 ordered Referral Ordered: Colonoscopy Appointment date/timeframe: 02/16/2019 ordered Referral Ordered: follow-up visit with Esophageal [facility] Dysphagia in 1 Month Appointment date/timeframe: 09/19/2014 ordered Appointment Danielle Garza BOOKED History Of Present Illness Encounter Date Complaint History Of Emily nt Illness GI Symptoms or Concerns GI Symptoms or Concerns This is a 48-year-old female who is here in follow up in regard to combination of symptoms including esophageal dysphagia, abdominal bloating and irregular bowel habits. The patient has struggled with symptoms chronically and notes significant associated anxiety and depression. In regard to the dysphagia, she did have an upper endoscopy 4 years ago with esophageal dilation associated with good symptomatic improvement at that time. She does report a history of significant asthma.In regard to the abdominal bloating, she has previously been diagnosed with SIBO. Unfortunately she tried different antibiotics which did not help her and she notes that she actually had side effects from the antibiotics. Xifaxan was the preferred agent to try initially but was not approved by insurance.She continues to struggle with irregular habits and in particular constipation. She is on a supplement which has helped her stool frequency but she still may only have a bowel movement every 2-3 days. She often will have a hard bowel movement in the morning and then looser stool in the afternoon. She previously tried psyllium but this led to exacerbation of underlying flatus and so she discontinued the fiber supplement. She is taking a probiotic at this time although it is unclear if this is helpful. She tried Linzess, initially starting at 72 micrograms per day and titrating up to 290 micrograms but this did not affect her symptoms at all. On further review, she does report needing to change position on the toilet to facilitate bowel movements. On review she also notes urinary and fecal leakage at times. When pelvic floor evaluation was brought up, she notes that she recollects trying pelvic floor therapy in the past. She does not recollect whether or not this proved helpful.In regard to anxiety and depression, she notes that she is taking a leave from work, has an appointment with a therapist coming up, and will be attending a retreat in the coming weeks. GI Symptoms or Concerns New Colleen ent Nutrition AssessmentAnthropometrics: Has gained weight, unsure of currentFood and Exercise History: Has tried intermittent fasting for a couple of weeks. Was previously eating all evening. Now not eating after 5:30-6pm. Has tried cutting out dairy, drinks almond milk. Feels that she is sensitive to ice cream.Beverages: coffee in the morning with sugar free creamer with stevia, water throughout the day, celsius in afternoonNutrition Diagnosis:Altered GI function related to small intestine bacterial overgrowth as evidenced by positive glucose breath test. Nutrition Discussion and Education:Met with patient for virtual visit today. She has noted constipation, pain, bloating and excessive flatulence for several years now. Sometimes she will have a week with no BM. She does note a history of sibo a few years ago. She is not sure she ever fully got rid of it. Recent test showed sibo positive. Insurance denied rifaximin, bactrim was prescribed. She notes improvement in symptoms on bactrim and for a couple days afterward but symptoms have now returned. She plans to connect with her provider about this. In the meantime, we did discuss limiting high fodmap foods for symptom management and we reviewed those today. We also reviewed some natural prokinetic options like hodan to help with gut motility. She is on laxative therapies as well for stool motility. She asked appropriate questions today and these were answered to her satisfaction. She is welcome to follow ups as needed. GI Symptoms or Concerns Danielle Garza is a 48-year-old female, who is an established patient of our GI practice, who comes in for a follow-up clinic visit. She was last seen in clinic on 04/25/2022 by my colleague Kajal Odell NP, please see her note from that date for details. Danielle has had a longstanding history of chronic constipation, and in association, she also describes issues with abdominal bloating and excessive flatulence. In addition, she does have a history of colon polyps, and her last colonoscopy done in March 2022, revealed the presence of hemorrhoids, but was otherwise normal. She says that after the bowel prep, her constipation, abdominal bloating as well as flatulence all resolved, and she was much better for the next few weeks, to up to a month. Subsequently, her symptoms all came back. in addition, she also describes issues with heartburn and regurgitation, for which she has been on PPI therapy with omeprazole 40 milligrams once a day on a regular basis. She says that this has been working well for her up until recently. She is been taking the PPI for years, with excellent results. No other last few months unfortunately, she has been noticing breakthrough symptoms, especially at nighttime, and she states that at nighttime sometimes she feels like she is choking or has coughing episodes. During the day, she feels that her heartburn is still well controlled. She denies any dysphagia, odynophagia, emesis. She does have persistent nausea though. No GI bleeding. She denies any anorexia or weight loss, though she feels that most foods give her an upset stomach. She has not been able to figure out which foods bother her more, as some days dairy we will give her symptoms while other days she has no issues with dairy. Similar things can happen on different other food products including gluten, as well as fruits and vegetables. She denies any diarrhea at this point, though at her last clinic visit in 2021, she was also having diarrhea in addition to her abdominal bloating and gas, and stool testing revealed the presence of E coli infection, and she was treated with a course of antibiotics. Interestingly, she says that her symptoms including her flatulence, bloating and diarrhea as well as dyspeptic symptoms, all resolved after the course of antibiotics, and were better for about a few weeks. Last year, she also underwent an ultrasound of the abdomen and the nuclear medicine gastric emptying scan, both of which tests were normal. She denies any chest pain, shortness of breath, lightheadedness, dizziness, fever, chills or sore throat. She is not on any NSAIDs or anticoagulant therapy. She is a nonsmoker, and denies alcohol use. Previous History Review GI Symptoms or Concerns This is a 46-year-old female patient seen in virtually today for follow-up. She agrees to have virtual visit and she is by herself. Her history is notable for chronic constipation, anxiety, GERD, seasonal allergies, and asthma,. I had a virtual visit with her on March 26, 2022 for evaluation of foul smelling flatulence , nausea, dark stools, irregular bowel habits with frequent stooling. She is started on promethazine 12.5 milligrams as needed for nausea, dicyclomine 10 milligrams 1 tablet to 3 times daily as needed for abdominal pain . Given her upper GI symptoms including nausea, abdominal pain needed ultrasound abdomen which was unremarkable no cholelithiasis, common bile duct dilation, the biliary obstruction. Gastric emptying study was normal. She completed a comprehensive stool panel which was notable for pathogenic E coli otherwise unremarkable. Pancreatic elastase was normal. Prior to that she was seen in our practice in 2019 and has had endoscopy and colonosc GI Symptoms or Concerns This is a 46-year-old female with a history of chronic constipation, anxiety, GERD, seasonal allergies, asthma, is seen virtually today for evaluation of generalized abdominal pain, foul-smelling flatulence, nausea, 1 episode of dark stools, irregular bowel habits with frequent stools. Patient agrees to have a virtual visit and she is by herself. Patient was initially seen in our practice in 2019 for chronic constipation and irregular bowel habits and has had blood work for celiac disease, thyroid disease, stool panel which were all unremarkable. She also had endoscopy and colonoscopy in 2019 which was unremarkable except for sessile serrated adenoma. Decent 5 year surveillance. She had another follow-up colonoscopy in March 2022 which is unremarkable except for internal hemorrhoids. Patient reports generalized abdominal pain associated with ongoing nausea, foul-smelling flatulence since the colonoscopy. She had 1 episode of dark stool and this resolved. She is most bothered by the increased flatulence and nausea. Occasionally, the pain gets so severe and wakes her up in the middle of the night. She feels better after passing gas. Reportedly, she eats clean drinks plenty of water, and exercises 5 days a week. Reportedly, his bowel movements have changed and she has had 5 small bowel movements that are associated with explosive stools , gas, and sticky stools. Denies changes to medications. Denies anyone at home sick with GI symptoms. Denies travel outside [place]. Denies fevers or chills. Denies history of pancreatitis, denies excessive alcohol consumption. Her past surgical history is notable for and abdominoplasty. Family history is notable for notable bowel syndrome, alcoholism, colon polyps, gallbladder disease, GERD. No family history of Crohn's or colitis or colon cancers. GI Symptoms or Concerns GI Symptoms or Concerns I was as ked to see Danielle by Dr. Carey Vuong for consultation of her irregular bowel habits.She reports a variety of GI problems, however, her most significant problem is urgent diarrhea. She states she has had symptoms for years, however, they are significantly worse over the past 6 months. She states that she has 3 to 4 urgent loose or liquid bowel movements per day. She denies any blood in her stools. Because of the urgency, she needs to always know where bathrooms are, and if she cannot get to a bathroom in time, she has had episodes of incontinence. Rarely, she will have formed stool, and states that she has gone over a month without having solid bowel movement. On rare occasion, she will go a couple of days without a bowel movement, and then will have a solid stool, however, she can then have loose or liquid stool that same day.Her diarrhea is associated with stabbing or cramping type pain. This is in her abdomen, and can be located anywhere in her abdo Functional Status Date Functional Assessmen t No Information Instructions Date Instruction Additional Infor erica 1. we will check the free T4 level (thyroid hormone)2. place referral to [facility]3. favor trial of Benefiber 1 rounded tablespoon in 8 ounces of juice or water once daily4. consider Align as a probiotic daily5. continue to focus on hydration taking in 64 ounces per day as able6. we will arrange the upper endoscopy7. check to see if we have samples of Xifaxan for SIBO8. follow-up will be requested a call or message with any questions or concerns way. Related to Constipation due to outlet dysfunction 1. Review the low fo dmap diet I've sent you and try to choose foods on the low side more often than on the high fodmap side. Remember that fodmaps are portion specific often, so if you do have high fodmap foods, keeping portions small can help. 2. Once we're able to treat your sibo, you should be able to comfortably tolerate high fodmap foods again so you can start adding them back in at that time. 3. Check out Floqq for more information about underlying causes, etc. Consider taking a hodan supplement which can help promote gut motility. Atrantil is another natural supplement that is often used as part of a treatment plan for sibo, particularly the kind you have. 4. Please let me know if you would like to schedule a follow up visit at any time or send questions/concerns through the patient portal. Related to Abdominal distension (gaseous) 1. We will be settin g her up for breath test as discussed 2. She will start the GoLYTELY bowel prep, for her colon cleanse as discussed with her 3. We will be starting her on Linzess 72 micrograms once a day 4. She will start Pepcid or famotidine at bedtime in addition to continuing her omeprazole once a day. 5. She will call or e-mail with an update in a couple of weeks 6. She will call or e-mail with questions or concerns, and will follow up with her primary provider as planned. Related to Chronic constipation Constipation Related to Chron ic constipation Gastroesophageal Reflux Disease Related to Heartburn 1. We will call to mikayla jessica Ultrasound abdomen, gastric emptying study, stool test in the near future. 2. Take dicyclomine 10 mg 1 tablet 2-3 times daily as needed for abdominal pain. 3. Take Promethazine 12.5 mg twice daily for nausea. Once nausea improves take once daily at bedtime. 4. Follow-up in a month or sooner if needed. Related to Flatulence/gas pain/belching Gas Pain and Bloating Related to Flatulence/gas pain/belching High Fiber Diet Related to Inter nal hemorrhoids Colon Cancer Prevention Related to Internal hemorrhoids Hemorrhoids Related to Inter nal hemorrhoids Colon Cancer Prevention Related to Colorectal polyps Colon Polyps Related to Color ectal polyps Hemorrhoids Related to Color ectal polyps High Fiber Diet Related to Color ectal polyps 1. Stool studies as ordered.2. Labs to check TSH and celiac panel.3. Fructose and lactose breath testing.4. Colonoscopy with evaluation of terminal ileum and biopsies for microscopic colitis.5. Follow up with me in clinic after the colonoscopy.6. In the meantime, I do recommend that she start a daily fiber supplement to see if this does not help to regulate her bowel movements.Thank you for allowing me to participate in the care of this patient. Please feel free to contact me should any questions arise. Related to Diarrhea, unspecified type Lifestyle education regarding di et Related to Dietary counseling and surveillance Assessments Type Assessment Date No Information Patient Care Teams Name Effective Dates (start - stop) Status Members No Information
--- OUTSIDE RECORDS SUMMARY | 2023-12-29 23:05 | XMS_ITS | Encounter Summary ---
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 Role Phone Carey Vuong MD Primary Care Provider [phone] Mehreen Scott MD Unavailable [phone] Carey Vuong MD Unavailable [phone] Prema Hitchcock PA-C Unavailable [phone] Harriet Lindsay Unavailable Unavailable Lavern Pope MD Unavailable [phone] Lavern Pope MD Unavailable [phone] Elmer Paul MD Unavailable [phone] Elmer Paul MD Unavailable [phone] Batool Torres NP Unavailable [phone] Marlene Benoit NP Unavailable [phone] Batool Torres NP Unavailable [phone] Reason for Referral * Consultation (Routine: Next available opening) - Pending Review Specialty Diagnoses / Procedures Referred By Contac t Referred To Contact Cardiovascular Disease Diagnoses Dyslipidemia Lavern Pope MD [address] [facility] [address] [place] [id number] Referral ID Status Reason Start Date Expiration Date V isits Requested Visits Authorized [id number] Pending Review 12/29/2023 12/28/2024 1 1 Question Answer Follow-up with: Self Scheduling Instructions: [facility] will call you to coordinate your care as prescribed by your provider. If you have concerns about scheduling, please call [phone]. Comments [facility] will call you to coordinate your care as prescribed by your provider. If you have concerns about scheduling, please call [phone]. [facility] G[facility] Reason for Visit * Reason Onset Date Comments Refill Request 12/29/2023 lipitor Encounter Details Date Type Department Care Team (Late st Contact Info) Description 12/29/2023 Refill [facility] [place] [id number] [facility] [address] [place] [phone] Lavern Pope MD [address] [facility] [address] [place], [place] [id number] Refill Request (lipitor) Social History Tobacco Use Types Packs/Day Years [...] week 06/17/2022 How often do you attend chur ch or synagogue services? More than 4 times per year 06/17/2022 Do you belong to any clubs o r organizations such as faith groups, unions, fraternal or athletic groups, or [...] Answer Date Recorded PHQ-2 Score 2 12/17/2023 [facility] - Occupational [...] Sex Assigned at Female 12/12/2019 6:30 PM MEDICAL ASSISTANT OB GYN Gender Identity Female 12/12/2019 6:30 PM MEDICAL ASSISTANT OB GYN Sexual Orientation Straight 04/04/2021 12 :18 PM CDT Travel History Travel Start Travel End [place] 12/06/2023 12/12/2023 documented as of this encounter Miscellaneous Notes * Telephone Encounter - Amaya Hyman RN - 12/29/2023 1:32 PM CST Refill letter sent to pt. Prescription sent to pharmacy for 90 day supply and 0 refills. [facility] * Telephone Encounter - Jocelyne Garza RN - 12/29/2023 11:55 AM MEDICAL ASSISTANT OB GYN [facility] Cardiology Refill Guideline reviewed. Medication does not meet criteria for refill dueto overdue for follow up or needs to defer to PCP. Messaged to providers team for further review. [facility] G[facility] documented in this encounter Plan of Treatment Upcoming Encounters Date Type Department Care Team (Late st Contact Info) Description 03/19/2024 3:30 PM CDT Office Visit [facility] Specialty [address] [place] [phone] Elmer Paul MD [address] [facility], [address] [place] [address] 04/16/2024 8:30 AM CDT Lab [facility] Heart [address] [place] [phone] 04/20/2024 8:45 AM CDT Office Visit [facility] Heart [facility] [address] [facility] [address] [place] [phone] Lavern Pope MD [address] [facility] [address] [place] [id number] Scheduled Referrals Name Type Priority Associated Diagnoses Orde r Schedule Follow-Up with Cardiology Referral Routine: Next available opening Dyslipidemia Expected: 01/29/2024 (Approximate), Expires: 12/29/2024 documented as of this encounter Visit Diagnoses Diagnosis Dyslipidemia Other and unspecified hyperlipidemia documented in this encounter Additional Health Concerns Assessment Noted Time PHQ-9 Depression Total Score: 10 024 7:56 AM MEDICAL ASSISTANT OB GYN documented as of this encounter Care Teams Metal Refiner Relationship Specialty Start Date End Date Carey Vuong MD [address] [place] [address] [place] [id number] PCP - General 01/15/02 Mehreen Scott MD [address] [place] [phone] school physical therapist 12/15/19 Carey Vuong MD [address] [place] [address] [place] [id number] Assigned PCP 02/22/21 Prema Hitchcock PA-C [address] [facility] [place] [address] Assigned Surgical Provider 11/04/21 Harriet Lindsay Personal Advocate & Liaison (PAL) 06/17/22 Lavern Pope MD [address] [place] [address] Cardiovascular Disease 11/11/22 Lavern Pope MD [address] [place] [address] Assigned Heart and Vascular Provider 11/16/22 Elmer Paul MD [address] [place], [place] [address] Allergy & Immunology 02/17/23 Elmer Paul MD [address] [place], [place] [address] Assigned Allergy Provider 04/26/23 Batool Torres, ZENOBIA [address] [place] [address] Nurse Practitioner Pulmonary Disease 08/11/23 [place] [address] [place] [address] Nurse Practitioner Nurse Practitioner 10/29/23 Batool Torres NP [address] [place] [address] Assigned Pulmonology Provider 12/25/23 documented as of this encounter
--- OUTSIDE RECORDS SUMMARY | 2023-12-29 23:05 | XMS_ITS | Encounter Summary ---
Author Name Unknown Organization [facility] Address [address] [place] [address] Care Team Providers Care Client Services Account Manager Name Role Phone Carey Vuong MD Primary Care Provider [phone] Mehreen Scott MD Unavailable [phone] Carey Vuong MD Unavailable [phone] Prema Hitchcock PA-C Unavailable [phone] Harriet Lindsay Unavailable Unavailable Lavern Pope MD Unavailable [phone] Lavern Pope MD Unavailable [phone] Elmer Paul MD Unavailable [phone] Elmer Paul MD Unavailable [phone] Batool Torres NP Unavailable [phone] Marlene Benoit NP Unavailable [phone] Batool Torres NP Unavailable [phone] Reason for Referral * Consultation (Routine) - Pending Review Specialty Diagnoses / Procedures Referred By Contac t Referred To Contact Diagnoses Lumbar radiculopathy DDD (degenerative disc disease), lumbar Marlene Benoit, BUDGET COORDINATOR [address] [place] [address] Referral ID Status Reason Start Date Expiration Date V isits Requested Visits Authorized [id number] Pending Review 12/29/2023 12/28/2024 1 1 Scheduling Instructions Interventional Evaluation: Interventional Injection Only - Type of Injection: L4-5 interlaminar OLIVIA Radiology? Yes T PITTER Reason for Visit * Reason Comments Pain Encounter Details Date Type Department Care Team (Late st Contact Info) Description 12/29/2023 10:30 AM FRUIT PITTER Office Visit [facility] [place] [id number] [place] [address] Drive [address] [place] [address] Marlene Benoit, ZENOBIA [address] [place] [address] Lumbar radiculopathy (Primary Dx); DDD (degenerative disc disease), lumbar; Neck pain; Spondylosis of cervical region without myelopathy or radiculopathy; Cervical radiculopathy; Migraine without aura and without status migrainosus, not intractable; Major depressive disorder, recurrent episode, moderate (H) Social History Tobacco Use Types Packs/Day Years [...] often do you attend chur ch or zoroastrian services? More than 4 times per year 06/17/2022 Do you belong to any clubs o r organizations such as mu-ism groups, unions, fraternal or athletic groups, or [...] Answer Date Recorded PHQ-2 Score 2 12/17/2023 [facility] - Occupational [...] Sex Assigned at Female 12/12/2019 6:30 PM FRUIT PITTER Gender Identity Female 12/12/2019 6:30 PM FRUIT PITTER Sexual Orientation Straight 04/04/2021 12 :18 PM CDT Travel History Travel Start Travel End [place] 12/06/2023 12/12/2023 documented as of this encounter Last Filed Vital Signs Vital Sign Reading Time Taken Comments Blood Pressure 123/79 12/29/2023 10:12 AM FRUIT PITTER Pulse 72 12/29/2023 10:12 AM FRUIT PITTER Temperature - - Respiratory Rate - - Oxygen Saturation 97% 12/29/2023 10:12 AM FRUIT PITTER Inhaled Oxygen Concentration - - Weight - - Height - - Body Mass Index - - documented in this encounter Patient Instructions * Patient Instructions* Marlene Benoit NP - 12/29/2023 10:30 AM FRUIT PITTER The position classification specialist will contact you to set up your injection. Please follow up with me in 3-4 weeks to reassess symptoms and response to treatment. [employer]: [email or web address] is also a roman based group. T PITTER documented in this encounter Progress Notes * Marlene Benoit NP - 12/29/2023 10:30 AM CST Images from the original note were not included. [facility] Date of Visit: 12/29/2023 Last visit: 11/04/2023 Original Consult: 01/06/2023 Danielle Garza is a 48 year old female with PMH significant for asthma, depression, SVT s/p ablation, knee pain (s/p 12 surgeries) and neck and back pain who is seen for ongoing management of chronic pain. History: 05/2022: Left gastrocnemius-soleus tear/strain treated @ [facility], resolved 05/30/22: Seen in [facility] for consult for intermittent aching, sharp, stabbing, spasm like pain that initiates in the left low lumbar region and radiates distally into left buttock with Aisha YoungtBIN. 11/12/22: Atypical Chest Pain and Palpitations, associated with light- headedness, nausea, headache and brain fog. Cardiology thought it was not clearly cardiac in origin, questioned atypical migraines. 11/19/22: severe abdominal pain, negative CT, referred to GI (not seen yet) 12/11/22: UTI 12/23/22: neurology consult; was scheduled at [facility] - patient cancelled. Low back pain improved after initial flare in May 2022 after treatment with PT and chiropractic. Had resumed exercise program, but without any impact, lowered weights lifted, lowered intensity overall. August 2022, pain seemed to slowly come back, started as a soreness. Epidural injections jhave historically helped quite a bit. Comes and goes, worse after standing. Occasional pain into her upp er thighs that is better with sitting. Neck pain/Headaches : Cancelled [facility] neurology consult, I am sick of going to the doctor. Episodes where she had profound tremors and shaking, did not get evaluated, laid down flat and symptoms resolved in 10 minutes. Pain improved with topiramate and cervical OLIVIA in January 2023. Repeated cervical OLIVIA Recommendations from last visit: 1. Chronic bilateral low back pain without sciatica: Improved after OLIVIA. Discussed MedX for improved stability, she will think about it and let me know if she would like me to place an order 2. Neck pain, Spondylosis of cervical region without myelopathy or radiculopathy: Repeat OLIVIA of cervical spine. If better can send me a mychart update. 3. Migraine without aura and without status migrainosus, not intractable: Refilled Topamax, in the past headaches improved with OLIVIA of the neck. Since last seen, Danielle reports: - Underwent C7-T1 ILESI with Dr. Terry 11/14/2023 to treat neck and right thumb numbness and tingling. This went away within 4-5 days after the injection. - Her PCP restarted Topiramate, has been taking 25 mg twice a day now and then will go to 50 mg at bedtime. Has not had any headaches since. - Intermittent pain in bilateral lower extremities that is worse with standing. Can;t seem to get comfortable. Hard to get out of bed without flaring back pain. - Persistent gut issues; SIBO, thrush, diarrhea and constipation. Seeing GI specialist. Still working on this, will be seeing [facility] for evaluation for endometriosis related causes. - ENT issues, thrush and ear pain. - Lots of stress with caring for aging in-laws as they transition from their home into supportive care environment. GERRI 30 days after moving. Then her health declined and work demands increased at the same time. It has been a lot. - Pain description: Location: lower back, bilateral legs Quality: aching, numbness Duration: intermittent Severity/Intensity: 2/10 at rest, worse with movement Aggravating factors include: strenuous activities Relieving factors include: lying down, medication, relaxation Current pain medications: Ibuprofen prn Excedrin Migraine prn Robaxin 500-1000 mg prn Review of [place] Prescription Monitoring Program (DEVELOPMENT EXECUTIVE): No concern for abuse or misuse of controlled medications based on this report. Last viewed on 11/04/2023 PAIN MANAGEMENT TREATMENT HISTORY 1. MEDICATIONS: Opiates: not used NSAIDS: inuprofen, naproxen - somewhat helpful Muscle Relaxants: Robaxin -helpful Anti-migraine mediations: Imitrex tablets - somewhat helpful, Excedrin Migrane- somewhat helpful, Topamax - very helpful, then stopped when she thought it was not helpful anymore 10/2023 Anti-depressants: Citalopram & Bupropion helpful for mood Neuropathics: Topirimate - helpful for migraines and pain Topicals: not tried Adjuvant pain medications: Acetaminophen 2. PHYSICAL THERAPY: Completed at [facility] Summer 2021, was combination of PT and Chiropractic - helped, still does HEP 3. PAIN PSYCHOLOGY: Not tried 4. SURGERY: Not for back or neck. 15 knee surgeries. 5. INJECTIONS: 8/16/23: C7-T1 ILESI with Dr. Terry: helped 05/30/23: Lumbar L4-[address] Terry: helped 01/06/23: C7-T1 interlaminar epidural steroid injection with Dr. Terry - 90+% relief 09/02/22: Lumbar L4-5 interlaminar epidural steroid injection with Dr. Terry 6. COMPLEMENTARY THERAPY: Chiropractic unsure if helpful TENS unit unsure if helpful heat/heat packs: not helpful cold/cold packs: helpful Imagin08/07/2022 MRI LUMBAR SPINE WITHOUT CONTRAST FINDINGS: For numbering purposes, a transitional thoracolumbar segment is considered to be T12 with tiny rib on the left and transverse process on the right. Alignment is significant for subtle grade 1 retrolistheses of L1 on L2 and L2 on L3. Bone marrow demonstrates scattered degenerative endplate change with prominent marrow edema (Modic 1) surrounding the L1-L2 disc joint. The conus medullaris is unremarkable terminating at the level the L1-L2 disc. Cauda equina is unremarkable. No appreciableextraspinal abnormality. T12-L1: Minimal disc height loss. Shallow right central bulge. Mild bilateral facet arthropathy. Noforaminal or spinal canal stenosis. L1-L2: Severe disc loss. Disc bulge. Moderate bilateral facet arthropathy. No right foraminal stenosis. Mild left foraminal stenosis. Mild spinal canal stenosis. L2-L3: Mild disc height loss. Disc bulge with shallow right foraminal protrusion. Mild bilateral facet arthropathy. Mild, if any, right foraminal stenosis. No left foraminal stenosis. Mild, if any, spinal canal stenosis. L3-L4: Mild disc height loss. Disc bulge. Mild bilateral facet arthropathy. No foraminal stenoses. Mild, if any, spinal canal stenosis. L4-L5: Mild disc height loss. Minimal bulge. Moderate bilateral facet arthropathy. Mild right foraminal stenosis. No left foraminal stenosis. Mild spinal canal stenosis. L5-S1: Disc height maintained. Shallow central bulge. Moderate bilateral facet arthropathy. No foraminal or spinal canal stenosis. 09/13/2022 MRI CERVICAL SPINE WITHOUT CONTRAST FINDINGS: Normal vertebral body heights. Straightening of the normal cervical lordosis. Mild presumably Modic type I degenerative endplate signal changes at C3-C4. Bone marrow signal otherwise appears normal. No abnormal spinal cord signal. Mild scattered degenerative changes of facet joints. The visualized paraspinous soft tissues appear unremarkable. Cranial vertebral junction/C1-C2: Unremarkable. C2-C3: Normal disc height. No herniation. No spinal canal or neural foraminal stenosis. C3-C4: Moderate disc height loss. Symmetric disc bulge with posterior endplate osteophytic ridging.No significant spinal canal stenosis. No significant neural foraminal stenosis. C4-C5: Normal disc height. Symmetric disc bulge with posterior endplate osteophytic ridging. Right-sided uncovertebral spurring. No spinal canal stenosis. Mild to moderate/moderate right neural foraminal stenosis. Mild left neural foraminal stenosis. C5-C6: Mild disc height loss. Symmetric disc bulge. Posterior endplate osteophytic ridging and mildbilateral uncovertebral spurring. [id number] right neural foraminal stenosis. The left neuralforamen appears patent. C6-C7: Normal disc height. Small right central disc protrusion. The disc protrusion mildly indents the ventral aspect of the thecal sac and contacts the ventral margin of the spinal cord without significant cord deformity. Mild spinal canal stenosis. No significant neural foraminal stenosis. C7-T1: Normal disc height. No herniation. No spinal canal or neural foraminal stenosis. IMPRESSION: 1. Multilevel degenerative changes of the cervical spine, as described. 2. Mild spinal canal stenosis at C6-C7. Otherwise, no significant spinal canal narrowing. 3. Multilevel neural foraminal stenosis, greatest on the right at C4-C5 and C5-C6. Social History She reports that she quit smoking about 12 months ago. Her smoking use included cigarettes and cigars. She has been exposed to tobacco smoke. She has never used smokeless tobacco. She reports that she does not currently use alcohol after a past usage of about 6.0 standard drinks of alcohol per week. She reports that she does not use drugs. Social History Social History Narrative . 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 Enjoys working out. Medications and Allergies reviewed. Objective There were no vitals filed for this visit. Constitutional: Well developed, well nourished, appears stated age. No acute distress. Gait is normal. HEENT: Head atraumatic, normocephalic. Eyes without conjunctival injection or jaundice. Neck supple. No obvious neck masses. Skin: No obvious rash, lesions, or petechiae of exposed skin. Extremities: Peripheral pulses intact. No clubbing, cyanosis, or edema. Moves all extremities. Psychiatric/mental status: Alert, without lethargy or stupor. Speech fluent. Appropriate affect. Mood normal. Able to follow commands without difficulty. Musculoskeletal exam: Normal bulk and tone. Unremarkable spinal curvature. LE strength, sensation grossly intact. Assessment & Plan Lumbar radiculopathy DDD (degenerative disc disease), lumbar Follow up with me in 3-4 weeks via [place] message to reassess symptoms and response to treatment. - PAIN INJECTION EVAL/TREAT/FOLLOW UP Neck pain Spondylosis of cervical region without myelopathy or radiculopathy Cervical radiculopathy Migraine without aura and without status migrainosus, not intractable Resolved with OLIVIA and restarting Topiramate. Watch for now. Major depression Discussed importance of finding a therapist that she feels she can connect with, encouraged her to continue DBT. Marlene Benoit, HOUSEHOLD CHORES-BC, PMGT-BC, AP-PMN [facility] T PITTER documented in this encounter Plan of Treatment Upcoming Encounters Date Type Department Care Team (Late st Contact Info) Description 03/19/2024 3:30 PM CDT Office Visit [facility] [address] [address] [place] [phone] Elmer Paul MD [address] [facility] [address] [place] [address] 04/16/2024 8:30 AM CDT Lab [facility] [address] [facility] [address] [place] [phone] 04/20/2024 8:45 AM CDT Office Visit [facility] [address] [place] [phone] Lavern Pope MD [address] [facility] [address] [place] [id number] Scheduled Referrals Name Type Priority Associated Diagnoses Orde r Schedule PAIN INJECTION EVAL/TREAT/FOLLOW UP Referral Routine Lumbar radiculopathy DDD (degenerative disc disease), lumbar Ordered: 12/29/2023 documented as of this encounter Visit Diagnoses Diagnosis Lumbar radiculopathy- Primary Thoracic or lumbosacral neuritis or radiculitis, unspecified DDD (degenerative disc disease), lumbar Degeneration of lumbar or lumbosacral intervertebral disc Neck pain Cervicalgia Spondylosis of cervical region without myelopathy or radiculopathy Cervical spondylosis without myelopathy Cervical radiculopathy Brachial neuritis or radiculitis nos Migraine without aura and without status migrainosus, not intractable Migraine without aura, without mention of intractable migraine without mention of status migrainosus Major depressive disorder, recurrent episode, moderate (H) Major depressive disorder, recurrent episode, moderate documented in this encounter Additional Health Concerns Assessment Noted Time PHQ-9 Depression Total Score: 10 024 7:56 AM FRUIT PITTER documented as of this encounter Care Teams Client Services Account Manager Relationship Specialty Start Date End Date Carey Vuong MD [address] [place] [address] [place] [id number] PCP - General 01/15/02 Mehreen Scott MD [address] [place] [address] [place] [phone] tire assembler 12/15/19 Carey Vuong MD [address] [place] [address] [place] [address] Assigned PCP 02/22/21 Prema Hitchcock PA-C [address] [id number] Assigned Surgical Provider 11/04/21 Harriet Lindsay Personal Advocate & Liaison (PAL) 06/17/22 Lavern Pope MD [address] [place] [id number] Cardiovascular Disease 11/11/22 Lavern Pope MD [address] [place] [id number] Assigned Heart and Vascular Provider 11/16/22 Elmer Paul MD [address] [place] [id number] Allergy & Immunology 02/17/23 Elmer Paul MD [address] [place] [id number] Assigned Allergy Provider 04/26/23 Batool Torres NP [address] [facility] [address] Nurse Practitioner Pulmonary Disease 08/11/23 [place] [address] [place] [address] Nurse Practitioner Nurse Practitioner 10/29/23 Batool Torres NP [address] [place] [address] Assigned Pulmonology Provider 12/25/23 documented as of this encounter
--- OUTSIDE RECORDS SUMMARY | 2023-12-29 23:05 | XMS_ITS | Referral Summary ---
Author Name Unknown Organization [place] Address [facility] [place] [address] Care Team Providers Care Cane Flume Watchman Name Role Phone Carey Vuong MD Primary Care Provider [phone] Mehreen Scott MD Unavailable [phone] Carey Vuong MD Unavailable [phone] Prema Hicthcock PA-C Unavailable [phone] Harriet Lindsay Unavailable Unavailable Lavern Pope MD Unavailable [phone] Lavern Pope MD Unavailable [phone] Elmer Paul MD Unavailable [phone] Elmer Paul MD Unavailable [phone] Batool Torres NP Unavailable Marlene Benoit NP Unavailable [phone] Batool Torres NP Unavailable Encounters Date Type Department Care Team Description 12/29/2023 [facility] Heart [address] [place] [address] Lavern Pope MD Orders (Lab orders ) 12/29/2023 Refill [facility] [address] [facility] [address] [place] [phone] Lavern Pope MD Refill Request (lipitor) 12/29/2023 Travel 12/29/2023 [facility] Medical Advice [facility] [address] [facility] [address] [place] [address] Kayleigh Alexander PA-C 12/29/2023 10:30 AM WELDER TOOL AND DIE Office Visit [facility] [place] [address] [facility] [address] [place] [address] Marlene Benoit, ZENOBIA Lumbar radiculopathy (Primary Dx); DDD (degenerative disc disease), lumbar; Neck pain; Spondylosis of cervical region without myelopathy or radiculopathy; Cervical radiculopathy; Migraine without aura and without status migrainosus, not intractable; Major depressive disorder, recurrent episode, moderate (H) 12/26/2023 Travel 12/24/2023 [facility] Medical Advice [facility] [place] [address] [facility] [address] [place] [address] Marlene Benoit, ZENOBIA 12/23/2023 [facility] Medical Advice [facility] [address] [place] [address] [address] [place] [address] Harriet Lindsay 12/22/2023 [facility] Medical Advice [facility] [address] [place] [address] [address] [place] [address] Kayleigh Alexander PA-C Forms 12/18/2023 [facility] Medical Advice [facility] Specialty [facility] [address] [facility] [address] [place] [phone] Elmer Paul MD 12/17/2023 10:00 AM WELDER TOOL AND DIE Office Visit [facility] [address] [facility] [address] [place] [address] Kayleigh Alexander PA-C Major depressive disorder, recurrent episode, moderate (H) (Primary Dx); Generalized anxiety disorder 12/17/2023 3:30 PM WELDER TOOL AND DIE Office Visit [facility] [address] [facility] [address] [place] [phone] Elmer Paul MD Mild persistent asthma without complication (Primary Dx); Allergic rhinitis due to animal (cat) (dog) hair and dander 12/16/2023 Travel 12/16/2023 8:30 AM WELDER TOOL AND DIE Office Visit [facility] [address] [place] [address] Frank Becerra MD Preop general physical exam (Primary Dx); Arthritis of left shoulder region 12/11/[address] [place] [address] Kayleigh Alexander PA-C Appointment (Pre-op and STD paperwork) 12/11/[address] [place] [address] Kayleigh Alexander PA-C 12/10/2023 My[facility] Medical Advice [address] [place] [address] Ericka Arora 12/08/[address] [place] [address] Carey Vuong MD 12/03/[address] [place] [address] Carey Vuong MD Call Back ([employer] wants to know if you have received the fax they sent on 12/02/2023. Fax was regarding her treatment plans. Disability forms that also needs to be completed as well. ) 12/02/2023 MyC Medical Advice [address] [place] [address] Carey Vuong MD 11/25/2023 10:00 AM WELDER TOOL AND DIE Virtual Visit [address] [place] [address] Kayleigh Alexander PA-C Major depressive disorder, recurrent episode, moderate (H) (Primary Dx); Depression with anxiety 11/18/2023 [facility] Medical Advice [address] [place] [address] Carey Vuong MD Patient Inquiry; Forms 11/18/2023 [facility] Medical Advice [facility] [address] [place] [address] Marlene Benoit NP 11/14/2023 Travel 11/14/2023 [facility] Medical Advice [address] [place] [address] Carey Vuong MD 11/14/2023 1:15 PM WELDER TOOL AND DIE Radiology Injection Office Visit [facility] [address] [place] [address] Marlene Benoit NP Burton, Annie L, MD Cervical radiculopathy (Primary Dx) 11/12/2023 [facility] Medical Advice [address] [place] [address] Carey Vuong MD mental health therapy 11/12/2023 Travel 11/11/2023 Telephone [facility] [address] [place] [address] Marlene Benoit NP Refill Request (topiramate (TOPAMAX) 50 MG tablet) 11/06/[address] [place] [address] Carey Vuong MD Medication Refill 11/05/2023 Telephone [facility] [address] [place] [address] Pain Management Program, [facility] Procedure (C7-T1 ILESI ) 11/05/2023 My[facility] Medical Advice [address] [place] [phone] Karina Schneider 11/05/2023 8:20 AM WELDER TOOL AND DIE Virtual Visit [address] [place] [phone] Carey Vuong MD Class 2 obesity due to excess calories without serious comorbidity with body mass index (BMI) of 35.0 to 35.9 in adult (Primary Dx); Alternating constipation and diarrhea; Abdominal cramping; Cervical radiculopathy 11/04/2023 [facility] Medical Advice [address] [place] [address] Carey Vuong MD 11/04/[address] [place] [address] Carey Vuong MD Refill Request; New Med Request (Wegovy 0.25mg/0.5ml soaj) 11/04/2023 My[facility] Medical Advice [facility] [address] [place] [address] Marlene Benoit NP Class 2 obesity due to excess calories without serious comorbidity with body mass index (BMI) of 36.0 to 36.9 in adult 11/04/2023 Travel 11/04/2023 8:00 AM WELDER TOOL AND DIE Office Visit [facility] [address] [place] [address] Marlene Benoit NP Cervical radiculopathy (Primary Dx); Spondylosis of cervical region without myelopathy or radiculopathy 10/29/2023 Telephone [facility] [address] [place] [phone] Danny Villegas PA-C 10/29/2023 Travel 10/29/2023 1:00 PM WELDER TOOL AND DIE Office Visit [address] [place] [address] Kayleigh Alexander, BIN Numbness and tingling of right thumb (Primary Dx) 10/28/2023 MyC Medical Advice [facility] [place] [address] [facility] [address] [place] [address] Marlene Benoit NP 10/28/2023 My[facility] Medical Advice [address] [place] [address] Carey Vuong MD MyChart Communication 10/27/[address] [place] [address] Carey Vuong MD Medication Refill 10/16/2023 [facility] Medical Advice [address] [place] [address] Carey Vuong MD update 10/14/2023 [facility] Medical Advice [address] [place] [address] Carey Vuong MD Depression 10/10/[address] [place] [address] Harriet Lindsay L Refill Request 10/10/2023 [facility] Medical Advice [address] [place] [address] Carey uVong MD Class 1 obesity due to excess calories with serious comorbidity and body mass index (BMI) of 31.0 to 31.9 in adult (Primary Dx); Major depressive disorder, recurrent episode, moderate (H); Class 2 obesity due to excess calories without serious comorbidity with body mass index (BMI) of 36.0 to 36.9 in adult; Abdominal cramping 10/08/2023 Refill [facility] [address] [place] [address] [address] [place] [phone] Carey Vuong MD Medication Refill 10/03/2023 MyC Medical Advice [address] [place] [address] Harriet Lindsay Arlyn 10/01/[address] [place] [address] Carey Vuong MD Prior Auth - Medication (Wegovy 0.25mg/0.5ml soaj) 10/01/2023 [facility] Medical Advice [address] [place] [phone] Carey Vuong MD Outreach from Last 3 Months Allergies Active Allergy Reactions Criticality Noted Date [...] Active fluticasone (FLONASE) 50 MCG/ACT nasal spray [place] 1 spray into both nostrils daily 0 [...] allergic rhinitis due to other allergic trigger [place] 1 spray into both nostrils at bedtime [...] (generalized) 03/18/2019 03/30/2019 Myalgia of pelvic floor 03/08/2019 04 Urinary urgency 03/05/2019 12/24/2021 Medial epicondylitis, left 08/09/2016 1 01/01/2016 Lateral epicondylitis of left elbow 08/09/2016 10/31/2016 Cervicalgia 02/20/2015 03/15/2015 Knee pain 07/16/2012 09/08/2012 Abnormal gait 07/16/2012 09/08/2012 Health Alf 04/13/2012 12/24/2021 Overview: Contacted the patient. environment coordinator introduced self and the program. Patient declined to participate. Will not open to care coordination. DX V65.8 REPLACED WITH 38055 HEALTH DETENTION (03/08/2013) Moderate major depression 04/22/2011 CARDIOVASCULAR SCREENING; LD L GOAL LESS THAN 160 01/10/2010 08/07/2016 Neck pain 11/06/2009 12/22/2020 Headache 11/03/2009 03/15/2015 Overview: Problem list name updated by automated process. Provider to review and confirm Problem list name updated by automated process. Provider to review Pain in joint, lower leg 09/28/200305/2016 Immunizations Name Administration Dates Next Due COVID-19 12+ (2022-) (Pfizer) 09/23/2023 COVID-19 MONOVALENT 12+ (Pfizer) 03/19/2021,01/30 Influenza (IIV3) PF 07/31/2011 Influenza Vaccine >6 months,quad, PF ,08/18/2019,08/17/2018,2014 Nasal Influenza Vaccine 2-49 (FluMist) 09/24/2017 TDAP Vaccine (Adacel) 05/06/2018,02/01/2008 Tdap (Adult) Unspecified Formulation 05/06/2018, 02/01/2008 Social History Tobacco Use Types Packs/Day Years [...] week 06/17/2022 How often do you attend [facility] or spiritism services? More than 4 times per year 06/17/2022 Do you belong to any clubs o r organizations such as jain groups, unions, fraternal or athletic groups, or [...] Answer Date Recorded PHQ-2 Score 2 12/17/2023 [facility] - Occupational Stress Questionnaire Answer Date Recorded [...] Sex Assigned at Female 12/12/2019 6:30 PM WELDER TOOL AND DIE Gender Identity Female 12/12/2019 6:30 PM WELDER TOOL AND DIE Sexual Orientation Straight 04/04/2021 12 :18 PM CDT Travel History Travel Start Travel End [place] 12/06/2023 12/12/2023 Last Filed Vital Signs Vital Sign Reading Time Taken Comments Blood Pressure 123/79 12/29/2023 10:12 AM WELDER TOOL AND DIE Pulse 72 12/29/2023 10:12 AM WELDER TOOL AND DIE Temperature 36.3 ??C (97.4 ??F) 12/17/2023 9:48 AM CS T Respiratory Rate 18 12/17/2023 9:48 AM WELDER TOOL AND DIE Oxygen Saturation 97% 12/29/2023 10:12 AM WELDER TOOL AND DIE Inhaled Oxygen Concentration - - Weight 104.3 kg (230 lb) 12/17/2023 2:58 PM WELDER TOOL AND DIE pt reported Height 165.7 cm (5' 5.25) 12/17/2023 9:48 AM CS T Body Mass Index 37.98 12/17/2023 9:48 AM WELDER TOOL AND DIE Plan of Treatment Upcoming Encounters Date Type Department Care Team (Late st Contact Info) Description 03/19/2024 3:30 PM CDT Office Visit [address] [phone] Elmer Paul MD [address] [place] [address] 04/16/2024 8:30 AM CDT Lab [facility] [address] [facility] [address] [place] [phone] 04/20/2024 8:45 AM CDT Office Visit [facility] [address] [facility] [address] [place] [phone] Lavern Pope MD [address] [facility] [address] [place] [address] Medical Devices Implanted Type Area Coil Rewind Machine Operator Device Identifier Shelf Expiration Date Model / Serial / Lot Wire Arya [id number] Implanted:Qty: 1 on 06/29/2012 at [facility] [employer] DARA 78.2530 / / Procedures Procedure Name Priority Date/Time Associated Diagnosis Comments URINE CULTURE Routine 12/18/2023 3:51 PM WELDER TOOL AND DIE Unspecified symptoms and signs involving the genitourinary system UPPER GI ENDOSCOPY - HIM SCAN 12/02/2023 12:00 AM WELDER TOOL AND DIE PAIN INTERLAMINAR EPIDURAL STRD INJ CERVICAL Routine 11/14/2023 1:36 PM WELDER TOOL AND DIE Cervical radiculopathy from Last 3 Months Results * Urine Culture (12/18/2023 3:51 PM WELDER TOOL AND DIE) Culture No Growth 12/20/2023 5:53 AM WELDER TOOL AND DIE [facility] Urine URINE SPECIMEN OBTAINED BY CLEAN CATCH PROCEDURE / Unknown Non-blood Collection / Unknown 12/18/2023 3:51 PM WELDER TOOL AND DIE 12/18/2023 8:01 PM WELDER TOOL AND DIE Kaycee Rea MD LAB - MICRO GENERA L ORDERABLES [facility] Inf. Diseases Diag. Lab [address] [facility] [place] [address], [facility] [phone] * UPPER GI ENDOSCOPY - HIM SCAN (12/02/2023 12:00 AM WELDER TOOL AND DIE) 12/02/2023 Provider Outside PROCEDURES * PAIN Translaminar Epidural Steroid Injection Cervical (11/14/2023 1:36 PM WELDER TOOL AND DIE) Anatomical Region Laterality Modality PAIN/SPINE Radio Fluoroscop y Narrative 11/14/2023 2:19 PM WELDER TOOL AND DIE Table formatting from the original result was not included. Images from the original result were not included. [facility] - Procedure Note Date of Visit: 11/14/2023 Procedure performed: C7-T1 interlaminar epidural steroid injection with fluoroscopic guidance Diagnosis: Cervical spondylosis; Cervical radiculitis/radiculopathy Poultry And Fish Butcher: Eden Lnin MD Anesthesia: none Indications: Danielle Garza is [...] Advance Directives For more information, please contact: [phone] Latest Code Status on File Code Status [...] 8:14 AM 01/27/2019 11:59 AM Care Teams Cane Flume Watchman Relationship Specialty Start Date End Date Carey Vuong MD [address] [facility] [place] [address] PCP - General 01/15/02 Mehreen Scott MD [address] [place] [phone] senior search marketing analyst 12/15/19 Carey Vuong MD [address] [facility] [place] [address] Assigned PCP 02/22/21 Prema Hitchcock PA-C [address] [place], [place] [address] Assigned Surgical Provider 11/04/21 Harriet Lindsay Personal Advocate & Liaison (PAL) 06/17/22 Lavern Pope MD [address] [place], [place] [address] Cardiovascular Disease 11/11/22 Lavern Pope MD [address] [place], [place] [address] Assigned Heart and Vascular Provider 11/16/22 Elmer Paul MD [address] [place], [place] [address] Allergy & Immunology 02/17/23 Elmer Paul MD [address] , [facility] [address] [place] [address] Assigned Allergy Provider 04/26/23 Batool Torres, CAKE STRIPPER [address] [place] [address] Nurse Practitioner Pulmonary Disease 08/11/23 [place] [address] [place] [address] Nurse Practitioner Nurse Practitioner 10/29/23 Batool Torres, CAKE STRIPPER [address] [place] [address] Assigned Pulmonology Provider 12/25/23
--- OUTSIDE RECORDS SUMMARY | 2023-12-29 23:05 | XMS_ITS | Encounter Summary ---
Author Name Unknown Organization [place] Address [address] [place] [address] Care Team Providers Care Complaints Coordinator Name Role Phone Carey Vuong MD Primary Care Provider [phone] Mehreen Scott MD Unavailable [phone] Carey Vuong MD Unavailable [phone] Prema Hitchcock PA-C Unavailable [phone] Harriet Lindsay Unavailable Unavailable Lavern Pope MD Unavailable [phone] Lavern Pope MD Unavailable [phone] Elmer Paul MD Unavailable [phone] Elmer Paul MD Unavailable [phone] Batool Torres OFFSET PRESS OPERATOR Unavailable [phone] Marlene Benoit OFFSET PRESS OPERATOR Unavailable [phone] Reason for Visit * Reason Onset Date Comments Forms 12/22/2023 Encounter Details Date Type Department Care Team (Late st Contact Info) Description 12/22/2023 [facility] [address] [place] [address] Kayleigh Alexander, BIN [address] [facility] [place] [address] Forms Social History Tobacco Use Types Packs/Day Years [...] week 06/17/2022 How often do you attend [facility] or orthodoxy services? More than 4 times per year 06/17/2022 Do you belong to any clubs o r organizations such as baptism groups, unions, fraternal or athletic groups, or [...] Answer Date Recorded PHQ-2 Score 2 12/17/2023 [facility] - Occupational [...] Sex Assigned at Female 12/12/2019 6:30 PM CRUISE GUIDE Gender Identity Female 12/12/2019 6:30 PM CRUISE GUIDE Sexual Orientation Straight 04/04/2021 12 :18 PM CDT Travel History Travel Start Travel End [place] 12/06/2023 12/12/2023 documented as of this encounter Miscellaneous Notes * Telephone Encounter - Harriet Lindsay Arlyn - 12/23/2023 12:06 PM CST FMLA paperwork completed. Faxed to [phone], Original mailed to pt. Copy placed in extenders faxed bin and one copy sent to abstraction SE GUIDE documented in this encounter Plan of Treatment Upcoming Encounters Date Type Department Care Team (Late st Contact Info) Description 03/19/2024 3:30 PM CDT Office Visit [facility] Specialty [facility] [address] [facility] [address] [place] [phone] Elmer Paul MD [address] [facility] [address] [place] [address] 04/16/2024 8:30 AM CDT Lab [facility] [address] [facility] [address] [place] [address] 04/20/2024 8:45 AM CDT Office Visit [facility] [address] [facility] [address] [place] [address] Lavern Pope MD [address] [facility] [address] [place] [id number] documented as of this encounter Visit Diagnoses Not on filedocumented in this encounter Additional Health Concerns Assessment Noted Time PHQ-9 Depression Total Score: 10 024 7:56 AM CRUISE GUIDE documented as of this encounter Care Teams Complaints Coordinator Relationship Specialty Start Date End Date Carey Vuong MD [address] [place] [address] [place] [address] PCP - General 01/15/02 Mehreen Scott MD [address] [place] [address] environmental aide 12/15/19 Carey Vuong MD [address] [place] [address] [place] [address] Assigned PCP 02/22/21 Prema Hitchcock PA-C [address] [place] [address] Assigned Surgical Provider 11/04/21 Harriet Lindsay Personal Advocate & Liaison (PAL) 06/17/22 Lavern Pope MD [address] [place], [place] [address] Cardiovascular Disease 11/11/22 Lavern Pope MD [address] [place], [place] [address] Assigned Heart and Vascular Provider 11/16/22 Elmer Paul MD [address], [address] [place], [place] [address] Allergy & Immunology 02/17/23 Elmer Paul MD [address], [address] [place], [place] [address] Assigned Allergy Provider 04/26/23 Batool Torres NP [address] [place] [address] Nurse Practitioner Pulmonary Disease 08/11/23 [place] [address] [place] [address] Nurse Practitioner Nurse Practitioner 10/29/23 documented as of this encounter
--- OUTSIDE RECORDS SUMMARY | 2023-12-29 23:05 | XMS_ITS | Encounter Summary ---
Author Name Unknown Organization [place] Address [address] [place] [address] Care Team Providers Care Recreation Therapy Teacher Name Role Phone Carey Vuong MD Primary Care Provider [phone] Mehreen Scott MD Unavailable [phone] Carey Vuong MD Unavailable [phone] Prema Hitchcock PA-C Unavailable [phone] Harriet Lindsay Unavailable Unavailable Lavern Pope MD Unavailable [phone] Lavern Pope MD Unavailable [phone] Elmer Paul MD Unavailable [phone] Elmer Paul MD Unavailable [phone] Batool Torres NP Unavailable [phone] Marlene Benoit NP Unavailable [phone] Batool Torres NP Unavailable [phone] Encounter Details Date Type Department Care Team (Latest Contact Info) Description 12/26/2023 Travel Social History Tobacco Use Types Packs/Day Years [...] week 06/17/2022 How often do you attend [facility] or rastafari services? More than 4 times per year 06/17/2022 Do you belong to any clubs o r organizations such as evangelical groups, unions, fraternal or athletic groups, or [...] Answer Date Recorded PHQ-2 Score 2 12/17/2023 [facility] - Occupational Stress Questionnaire Answer [...] Sex Assigned at Female 12/12/2019 6:30 PM CABLE TELEVISION TECHNICIAN Gender Identity Female 12/12/2019 6:30 PM CABLE TELEVISION TECHNICIAN Sexual Orientation Straight 04/04/2021 12 :18 PM CDT Travel History Travel Start Travel End [place] 12/06/2023 12/12/2023 documented as of this encounter Plan of Treatment Upcoming Encounters Date Type Department Care Team (Late st Contact Info) Description 03/19/2024 3:30 PM CDT Office Visit [facility] Specialty [address] [place] [phone] Elmer Paul MD [address] , [address] [place] [address] 04/16/2024 8:30 AM CDT Lab [facility] Heart [address] [place] [address] 04/20/2024 8:45 AM CDT Office Visit [facility] [place] [address] [facility] [address] [place] [address] Lavern Pope MD [address] [facility] [address] [place] [id number] documented as of this encounter Visit Diagnoses Not on filedocumented in this encounter Additional Health Concerns Assessment Noted Time PHQ-9 Depression Total Score: 10 024 7:56 AM CABLE TELEVISION TECHNICIAN documented as of this encounter Care Teams Recreation Therapy Teacher Relationship Specialty Start Date End Date Carey Vuong MD [address] [place] [address] [place] [address] PCP - General 01/15/02 Mehreen Scott MD [address] [facility] [address] [place] [address] audio tape librarian 12/15/19 Carey Voung MD [address] [place] [address] [place] [address] Assigned PCP 02/22/21 Prema Hitchcock PA-C [address] [facility] [place] [address] Assigned Surgical Provider 11/04/21 Harriet Lindsay Personal Advocate & Liaison (PAL) 06/17/22 Lavern Pope MD [address] [facility] [address] [place] [address] Cardiovascular Disease 11/11/22 Lavern Pope MD [address] [place] [address] Assigned Heart and Vascular Provider 11/16/22 Elmer Paul MD [address] [place] [address] Allergy & Immunology 02/17/23 Elmer Paul MD [address] [place] [address] Assigned Allergy Provider 04/26/23 Batool Torres NP [address] [place] [address] Nurse Practitioner Pulmonary Disease 08/11/23 [place] [address] [place] [address] Nurse Practitioner Nurse Practitioner 10/29/23 Batool Torres NP [address] [place] [address] Assigned Pulmonology Provider 12/25/23 documented as of this encounter
--- OUTSIDE RECORDS SUMMARY | 2023-12-29 23:05 | XMS_ITS | Encounter Summary ---
Author Name Unknown Organization [facility] Address [address] [place] [address] Care Team Providers Care Electroneurodiagnostic Technician Name Role Phone Carey Vuong MD Primary Care Provider [phone] Mehreen Scott MD Unavailable +[phone] Carey Vuong MD Unavailable +[phone] Prema Hitchcock PA-C Unavailable +[phone] Harriet Lindsay Unavailable Unavailable Lavern Pope MD Unavailable +[phone] Lavern Pope MD Unavailable +[phone] Elmer Paul MD Unavailable +[phone] Elmer Paul MD Unavailable +[phone] Batool Torres NP Unavailable Marlene Benoit NP Unavailable +[phone] Batool Torres NP Unavailable +[phone] Encounter Details Date Type Department Care Team (Late st Contact Info) Description 12/29/2023 [facility] [address] [place] [address] Kayleigh Alexander PA-C [address] [facility] [place] [address] Social History Tobacco Use Types Packs/Day Years [...] week 06/17/2022 How often do you attend [facility] or yazidism services? More than 4 times per year 06/17/2022 Do you belong to any clubs o r organizations such as holiness groups, unions, fraternal or athletic groups, or [...] Answer Date Recorded PHQ-2 Score 2 12/17/2023 [facility] - Occupational [...] Sex Assigned at Female 12/12/2019 6:30 PM DIRECTOR OF LEARNING Gender Identity Female 12/12/2019 6:30 PM DIRECTOR OF LEARNING Sexual Orientation Straight 04/04/2021 12 :18 PM CDT Travel History Travel Start Travel End [place] 12/06/2023 12/12/2023 documented as of this encounter Plan of Treatment Upcoming Encounters Date Type Department Care Team (Late st Contact Info) Description 03/19/2024 3:30 PM CDT Office Visit [place] [address] [place] [phone] Elmer Paul MD [address] , [address] [place] [address] 04/16/2024 8:30 AM CDT Lab [facility] [address] [facility] [address] [place] [phone] 04/20/2024 8:45 AM CDT Office Visit [facility] [address] [facility] [address] [place] [phone] Lavern Pope MD [address] [facility] [address] [place] [id number] documented as of this encounter Visit Diagnoses Not on filedocumented in this encounter Additional Health Concerns Assessment Noted Time PHQ-9 Depression Total Score: 10 024 7:56 AM DIRECTOR OF LEARNING documented as of this encounter Care Teams Electroneurodiagnostic Technician Relationship Specialty Start Date End Date Carey Vuong MD [address] [place] [address] [place] [address] PCP - General 01/15/02 Mehreen Scott MD [address] [facility] [address] [place] [phone] clearing distribution clerk 12/15/19 [place] [address] [place] [address] [place] [address] Assigned PCP 02/22/21 Prema Hitchcock PA-C [address] [place] [address] Assigned Surgical Provider 11/04/21 Harriet Lindsay Personal Advocate & Liaison (PAL) 06/17/22 Lavern Pope MD [address] [place] [address] Cardiovascular Disease 11/11/22 Lavern Pope MD [address] [place] [address]96[address] Assigned Heart and Vascular Provider 11/16/22 Elmer Paul MD [address], [address] [place] [id number] Allergy & Immunology 02/17/23 Elmer Paul MD [address] [place] [address] Assigned Allergy Provider 04/26/23 Batool Torres NP [address] [facility] [address] Nurse Practitioner Pulmonary Disease 08/11/23 [place] [address] [place] [address] Nurse Practitioner Nurse Practitioner 10/29/23 Batool Torres NP [address] [facility] [place] [address] Assigned Pulmonology Provider 12/25/23 documented as of this encounter
--- OUTSIDE RECORDS SUMMARY | 2023-12-29 23:05 | XMS_ITS | Encounter Summary ---
Author Name Unknown Organization [facility] Address [address] [place] [address] Care Team Providers Care Field Enumerator Name Role Phone Carey Vuong MD Primary Care Provider [phone] Mehreen Scott MD Unavailable +[phone] Carey Vuong MD Unavailable +[phone] Prema Hitchcock PA-C Unavailable +[phone] Harriet Lindsay Unavailable Unavailable Lavern Pope MD Unavailable [phone] Lavern Pope MD Unavailable +[phone] Elmer Paul MD Unavailable +[phone] Elmer Paul MD Unavailable [phone] Batool Torres NP Unavailable Marlene Benoit NP Unavailable +[phone] Batool Torres NP Unavailable +[phone] Encounter Details Date Type Department Care Team (Late st Contact Info) Description 12/23/2023 [facility] [address] [place] [address] Angélica Harriet L Social History Tobacco Use Types Packs/Day Years [...] week 06/17/2022 How often do you attend [facility] or temple services? More than 4 times per year 06/17/2022 Do you belong to any clubs o r organizations such as synagogue groups, unions, fraternal or athletic groups, or [...] Date Recorded PHQ-2 Score 2 12/17/2023 [facility] - Occupational Stress Questionnaire Answer Date [...] Sex Assigned at Female 12/12/2019 6:30 PM BOY'S ADVISER Gender Identity Female 12/12/2019 6:30 PM BOY'S ADVISER Sexual Orientation Straight 04/04/2021 12 :18 PM CDT Travel History Travel Start Travel End [place] 12/06/2023 12/12/2023 documented as of this encounter Plan of Treatment Upcoming Encounters Date Type Department Care Team (Late st Contact Info) Description 03/19/2024 3:30 PM CDT Office Visit [facility] [address] [place] [address] [address] [place] [phone] Elmer Paul MD [address] , [address] [place] [address] 04/16/2024 8:30 AM CDT Lab [facility] [address] [facility] [address] [place] [phone] 04/20/2024 8:45 AM CDT Office Visit [facility] [address] [facility] [address] [place] [phone] Lavern Pope MD 6594 [facility] 275 [place] 268[address] documented as of this encounter Visit Diagnoses Not on filedocumented in this encounter Additional Health Concerns Assessment Noted Time PHQ-9 Depression Total Score: 10 024 7:56 AM BOY'S ADVISER documented as of this encounter Care Teams Field Enumerator Relationship Specialty Start Date End Date Carey Vuong MD [address] [place] [address] [place] [address] PCP - General 01/15/02 Mehreen Scott MD 3625 [facility] 100 [place] [address] machine assembler for puller over 12/15/19 Carey Vuong MD [address] [place] [address] [place] [address] Assigned PCP 02/22/21 Prema Hitchcock PA-C 6405 [facility] [place] [address] Assigned Surgical Provider 11/04/21 Harriet Lindsay Personal Advocate & Liaison (PAL) 06/17/22 Lavern Pope MD 6576 [facility] 275 [place] [address] Cardiovascular Disease 11/11/22 Lavern Pope MD [address] [place] [address] Assigned Heart and Vascular Provider 11/16/22 Elmer Paul MD [address], [address] [place], [place] [address] Allergy & Immunology 02/17/23 Elmer Paul MD [address], [address] [place] [address] Assigned Allergy Provider 04/26/23 Batool Torres NP 1655 [place] [address] Nurse Practitioner Pulmonary Disease 08/11/23 [place] [address] [place] [address] Nurse Practitioner Nurse Practitioner 10/29/23 Batool Torres NP [address] [place] [address] Assigned Pulmonology Provider 12/25/23 documented as of this encounter
--- OUTSIDE RECORDS SUMMARY | 2023-12-29 23:05 | XMS_ITS | Encounter Summary ---
Author Name Unknown Organization [facility] Address [address] [place] [address] Care Team Providers Care Painter Interior Finish Name Role Phone Carey Vuong MD Primary Care Provider [phone] Mehreen Scott MD Unavailable [phone] Carey Vuong MD Unavailable +[phone] Prema Hitchcock PA-C Unavailable +[phone] Harriet Lindsay Unavailable Unavailable Lavern Pope MD Unavailable [phone] Lavern Pope MD Unavailable +[phone] Elmer Paul MD Unavailable [phone] Elmer Paul MD Unavailable [phone] Batool Torres NP Unavailable [phone] Marlene Benoit NP Unavailable +[phone] Batool Torres NP Unavailable [phone] Encounter Details Date Type Department Care Team (Late st Contact Info) Description 12/24/2023 [facility] Pain Management [address] [place] [address] Marlene Benoit, [place] [address] [place] [address] Social History Tobacco Use Types Packs/Day Years [...] week 06/17/2022 How often do you attend [facility] or mormonism services? More than 4 times per year 06/17/2022 Do you belong to any clubs o r organizations such as pentecostal groups, unions, fraternal or athletic groups, or [...] Answer Date Recorded PHQ-2 Score 2 12/17/2023 [facility] Occupat ional Health - Occupational Stress [...] Sex Assigned at Female 12/12/2019 6:30 PM COMPUTER TERMINAL OPERATOR Gender Identity Female 12/12/2019 6:30 PM COMPUTER TERMINAL OPERATOR Sexual Orientation Straight 04/04/2021 12 :18 PM CDT Travel History Travel Start Travel End [place] 12/06/2023 12/12/2023 documented as of this encounter Miscellaneous Notes * Telephone Encounter - Yazmin Mendez RN - 12/29/2023 7:59 AM COMPUTER TERMINAL OPERATOR Appt 12/29/23 Closing Yazmin Verduzco RN Health Program Director [facility] UTER TERMINAL OPERATOR * Telephone Encounter - Mary Hong, RN - 12/25/2023 9:12 AM CST Will leave encounter open for patient response/chart review by nursing. Mychart Below from pt Cuco Rosario - I???m in need of a shot in my back. Both of my legs are going numb when I stand to long. That???s always my sign I need to get a shot before it gets so bad I can???t walk. Can you help me get that scheduled? Mychart below response to pt Cuco Santos, It looks like Marlene Benoit had wanted to see you back 3-4 weeks after your cervical injection and she has not addressed your low back pain since May. She would like you to make an appointment tocome see her for follow up. You can schedule this via [employer] or call [phone] to set this up. Thanks! Mary GÓMEZ, RN Health Program Director [facility] Pain Management UTER TERMINAL OPERATOR documented in this encounter Plan of Treatment Upcoming Encounters Date Type Department Care Team (Late st Contact Info) Description 03/19/2024 3:30 PM CDT Office [facility] [place] [address] [place] [address] [address] [place] [phone] Elmer Paul MD [address] [facility] 200 [place], [place] [address] 04/16/2024 8:30 AM CDT Lab [facility] Heart [facility] [address] [facility] [address] [place] [address] 04/20/2024 8:45 AM CDT Office Visit [facility] Heart [facility] [address] [facility] [address] [place] [phone] Lavern Pope MD 6580 [facility] 275 [place] [address] documented as of this encounter Visit Diagnoses Not on filedocumented in this encounter Additional Health Concerns Assessment Noted Time PHQ-9 Depression Total Score: 10 024 7:56 AM COMPUTER TERMINAL OPERATOR documented as of this encounter Care Teams Painter Interior Finish Relationship Specialty [place] [address] [place] [address] [place] [address] PCP - General 01/15/02 Mehreen Scott MD [address] [facility] 100 [place] [phone] cafeteria operator 12/15/19 [place] [address] [place] [address] [place] [address] Assigned PCP 02/22/21 Prema Hitchcock PA-C 6405 [facility] [place] [address] Assigned Surgical Provider 11/04/21 Harriet Lindsay Personal Advocate & Liaison (PAL) 06/17/22 Lavern Pope MD 6525 [facility] 275 [place] [address] Cardiovascular Disease 11/11/22 Lavern Pope MD 6525 [facility] [address] [place] [address] Assigned Heart and Vascular Provider 11/16/22 Elmer Paul MD [address] [place] [address] Allergy & Immunology 02/17/23 Elmer Paul MD [address], [address] [place] [address] Assigned Allergy Provider 04/26/23 Batool Torres, ZENOBIA 1655 [place] [address] Nurse Practitioner Pulmonary Disease 08/11/23 [place] [address] [place] [address] Nurse Practitioner Nurse Practitioner 10/29/23 Batool Torres, ZENOBIA [address]55 [place] [address] Assigned Pulmonology Provider 12/25/23 documented as of this encounter
--- OUTSIDE RECORDS SUMMARY | 2023-12-29 23:05 | XMS_ITS | Encounter Summary ---
Author Name Unknown Organization [place] Address [address] [place] [address] Care Team Providers Care Engine House Helper Name Role Phone Carey Vuong MD Primary Care Provider [phone] Mehreen Scott MD Unavailable [phone] Carey Vuong MD Unavailable [phone] Prema Hitchcock PA-C Unavailable +[phone] Harriet Lindsay Unavailable Unavailable Lavern Pope MD Unavailable +[phone] Lavern Pope MD Unavailable [phone] Elmer Paul MD Unavailable [phone] Elmer Paul MD Unavailable [phone] Batool Torres NP Unavailable [phone] Marlene Benoit NP Unavailable [phone] Batool Torres NP Unavailable [phone] Encounter Details Date Type Department Care Team (Latest Contact Info) Description 12/29/2023 Travel Social History Tobacco Use Types Packs/Day [...] week 06/17/2022 How often do you attend [facility] or jew services? More than 4 times per year 06/17/2022 Do you belong to any clubs o r organizations such as orthodox groups, unions, fraternal or athletic groups, [...] 2 12/17/2023 [facility] - Occupational Stress Questionnaire [...] Sex Assigned at Female 12/12/2019 6:30 PM CASING MACHINE OPERATOR Gender Identity Female 12/12/2019 6:30 PM CASING MACHINE OPERATOR Sexual Orientation Straight 04/04/2021 12 :18 PM CDT Travel History Travel Start Travel End [place] 12/06/2023 12/12/2023 documented as of this encounter Plan of Treatment Upcoming Encounters Date Type Department Care Team (Late st Contact Info) Description 03/19/2024 3:30 PM CDT Office Visit [facility] Specialty [address] [place] [phone] Elmer Paul MD [address] , [address] [place] [address] 04/16/2024 8:30 AM CDT Lab [facility] Heart [address] [place] [address] 04/20/2024 8:45 AM CDT Office Visit [facility] Clinic [place] [address] [facility] [address] [place] [address] Lavern Pope MD 6587 [facility] 275 [place] [id number] documented as of this encounter Visit Diagnoses Not on filedocumented in this encounter Additional Health Concerns Assessment Noted Time PHQ-9 Depression Total Score: 10 024 7:56 AM CASING MACHINE OPERATOR documented as of this encounter Care Teams Engine House Helper Relationship Specialty Start Date End Date Carey Vuong MD [address] [place] [address] [place] [address] PCP - General 01/15/02 Mehreen Scott MD [address] [facility] 100 [place] [phone] senior it security analyst 12/15/19 Carey Vuong MD [address] [place] [address] [place] [address] Assigned PCP 02/22/21 Prema Hitchcock PA-C [address] [facility] [place] [address] Assigned Surgical Provider 11/04/21 Harriet Lindsay Personal Advocate & Liaison (PAL) 06/17/22 Lavern Pope MD 6525 [facility] 275 [place] [address] Cardiovascular Disease 11/11/22 Lavern Pope MD [address] [place] [address] Assigned Heart and Vascular Provider 11/16/22 Elmer Paul MD [address], [address] [place] [address] Allergy & Immunology 02/17/23 Elmer Paul MD [address] [place] [address] Assigned Allergy Provider 04/26/23 Batool Torres NP [address] [place] [address] Nurse Practitioner Pulmonary Disease 08/11/23 [place] [address] [place] [address] Nurse Practitioner Nurse Practitioner 10/29/23 Batool Torres NP [address] [place] [address] Assigned Pulmonology Provider 12/25/23 documented as of this encounter
--- OUTSIDE RECORDS SUMMARY | 2023-12-29 23:05 | XMS_ITS | Encounter Summary ---
Author Name Unknown Organization [facility] Address [address] [place] [address] Care Team Providers Care Dev Manager Name Role Phone Carey Vuong MD Primary Care Provider [phone] Mehreen Scott MD Unavailable +[phone] Carey Vuong MD Unavailable +[phone] Prema Hitchcock PA-C Unavailable +[phone] Harriet Lindsay Unavailable Unavailable Lavern Pope MD Unavailable +[phone] Lavern Pope MD Unavailable +[phone] Elmer Paul MD Unavailable +[phone] Elmer Paul MD Unavailable [phone] Batool Torres NP Unavailable [phone] Marlene Benoit NP Unavailable +[phone] Batool Torres NP Unavailable [phone] Reason for Visit * Reason Onset Date Comments Orders 12/29/2023 Lab orders Encounter Details Date Type Department Care Team (Late st Contact Info) Description 12/29/2023 Telephone [facility] Heart [address] [place] [address] Lavern Pope MD 2[address] [facility] 275 [place] [address] Orders (Lab orders ) Social History Tobacco Use Types Packs/Day Years [...] week 06/17/2022 How often do you attend [facility] or yazdanism services? More than 4 times per year 06/17/2022 Do you belong to any clubs o r organizations such as jainism groups, unions, fraternal or athletic groups, or [...] Answer Date Recorded PHQ-2 Score 2 12/17/2023 [facility] of Occupat ional Health - Occupational Stress [...] Sex Assigned at Female 12/12/2019 6:30 PM SURVEY METHODOLOGIST Gender Identity Female 12/12/2019 6:30 PM SURVEY METHODOLOGIST Sexual Orientation Straight 04/04/2021 12 :18 PM CDT Travel History Travel Start Travel End [place] 12/06/2023 12/12/2023 documented as of this encounter Miscellaneous Notes * Telephone Encounter - Arley Neville RN - 12/29/2023 2:03 PM CST FLP order has been placed for prior to visit. EY METHODOLOGIST * Telephone Encounter - Abernathy, Pily - 12/29/2023 1:46 PM CST [facility] Phone Message May a detailed message be left on voicemail: yes Reason for Call: Order(s): Other: Reason for requested: Fasting lab orders Date needed: before 04/16/2024 Provider name: Dr Pope Action Taken: Other: Cardiology Travel Screening: Not Applicable Thank you! [facility] EY METHODOLOGIST documented in this encounter Plan of Treatment Upcoming Encounters Date Type Department Care Team (Late st Contact Info) Description 03/19/2024 3:30 PM CDT Office Visit [facility] 6525 [facility] 200 [place] [address] Elmer Paul MD 0224 [facility] 200 [place] [address] 04/16/2024 8:30 AM CDT Lab [facility] [address] [facility] [address] [place] [address] 04/20/2024 8:45 AM CDT Office Visit [facility] [address] [facility] [address] [place] [address] Lavern Pope MD 6548 [facility] [address] [place] [address] Scheduled Orders Name Type Priority Associated Diagnoses Orde r Schedule Lipid Profile Lab Routine Dyslipidemia Expected: 03/29/2024 (Approximate), Expires: 12/29/2024 documented as of this encounter Visit Diagnoses Diagnosis Dyslipidemia- Primary Other and unspecified hyperlipidemia documented in this encounter Additional Health Concerns Assessment Noted Time PHQ-9 Depression Total Score: 10 024 7:56 AM SURVEY METHODOLOGIST documented as of this encounter Care Teams Dev Manager Relationship Specialty Start Date End Date Carey Vuong MD [address] [facility] [place] [address] PCP - General 01/15/02 Mehreen Scott MD [address] [employer] 100 [place] [phone] job putter up and ticket preparer 12/15/19 Carey Vuong MD [address] [facility] [place] [address] Assigned PCP 02/22/21 Prema Hitchcock PA-C [address] [place], [place] [address] Assigned Surgical Provider 11/04/21 Harriet Lindsay Personal Advocate & Liaison (PAL) 06/17/22 Lavern Pope MD [address] [place], [place] [address] Cardiovascular Disease 11/11/22 Lavern Pope MD [address] [place], [place] [address] Assigned Heart and Vascular Provider 11/16/22 Elmer Paul MD [address] [place], [place] [address] Allergy & Immunology 02/17/23 Elmer Paul MD [address] [place] [address] Assigned Allergy Provider 04/26/23 Batool Torres NP 1655 [facility] [place] [address] Nurse Practitioner Pulmonary Disease 08/11/23 [place] [address] [address] [place] [address] Nurse Practitioner Nurse Practitioner 10/29/23 Batool Torres NP [address]55 [facility] [place] [address] Assigned Pulmonology Provider 12/25/23 documented as of this encounter
--- OUTSIDE RECORDS SUMMARY | 2023-12-29 23:06 | XMS_ITS | Encounter Summary ---
Author Name Unknown Organization [facility] Address [address] [place] [address] Care Team Providers Care Spike Driver Name Role Phone Carey Vuong MD Primary Care Provider [phone] Mehreen Scott MD Unavailable [phone] Carey Vuong MD Unavailable [phone] Prema Hitchcock PA-C Unavailable [phone] Harriet Lindsay Unavailable Unavailable Lavern Pope MD Unavailable [phone] Lavern Pope MD Unavailable [phone] Elmer Paul MD Unavailable [phone] Elmer Paul MD Unavailable [phone] Batool Torres NP Unavailable [phone] Marlene Benoit NP Unavailable [phone] Encounter Details Date Type Department Care Team (Late st Contact Info) Description 12/08/2023 Telephone [facility] [address] [place] [phone] Carey Vuong MD [address] [facility] [place] [address] Social History Tobacco Use Types Packs/Day Years [...] week 06/17/2022 How often do you attend [facility] or [facility]? More than 4 times per year 06/17/2022 Do you belong to any clubs o r organizations such as restorationism groups, unions, fraternal or athletic groups, or [...] PHQ-2 Answer Date Recorded PHQ-2 Score 2 12/16/2023 [facility] - Occupational Stress [...] Sex Assigned at Female 12/12/2019 6:30 PM INSTRUMENT MECHANIC Gender Identity Female 12/12/2019 6:30 PM INSTRUMENT MECHANIC Sexual Orientation Straight 04/04/2021 12 :18 PM CDT Travel History Travel Start Travel End [place] 12/06/2023 12/12/2023 documented as of this encounter Miscellaneous Notes * Telephone Encounter - Ericka Arora - 12/15/2023 9:09 AM CST Spoke with pt to provide reasoning for in person appointment. Ericka Arora on 12/15/2023 at 9:10 AM RUMENT MECHANIC * Telephone Encounter - Maite Ericka Penn - 12/10/2023 1:16 PM CST Paperwork still on PCP's desk. Sent pt [place] with status. Ericka PennShahla Arora on 12/10/2023 at 1:16 PM RUMENT MECHANIC * Telephone Encounter - July Crain - 12/08/2023 3:12 PM CST General Call Contacts Type Contact Phone/Fax 12/08/2023 03:12 PM INSTRUMENT MECHANIC Phone (Incoming) Rashmi [phone] [facility] Mgr Reason for Call: Paperwork Lucy What are your questions or concerns: Wondering when the completion will take place. Please fax whencompleted. Date of last appointment with provider: n/a [facility] or would you prefer to receive a phone call?: Patient would prefer a phone call Okay to leave a detailed message?: Yes at Other phone number: [phone] RUMENT MECHANIC documented in this encounter Plan of Treatment Upcoming Encounters Date Type Department Care Team (Late st Contact Info) Description 03/19/2024 3:30 PM CDT Office Visit [facility] [address] [place] [phone] Elmer Paul MD [address] [place] [address] 04/16/2024 8:30 AM CDT Lab [facility] [address] [facility] [address] [place] [phone] 04/20/2024 8:45 AM CDT Office Visit [facility] [address] [place] [phone] Lavern Pope MD [address] [place] [address] documented as of this encounter Visit Diagnoses Not on filedocumented in this encounter Additional Health Concerns Assessment Noted Time PHQ-9 Depression Total Score: 22 10/14/ 023 12:40 PM INSTRUMENT MECHANIC documented as of this encounter Care Teams Spike Driver Relationship Specialty Start Date End Date Carey Vuong MD [address] [place] [address] [place] [address] PCP - General 01/15/02 Mehreen Scott MD [address] [facility] [address] [place] [phone] radiological technologist 12/15/19 Carey Vuong MD [address] [place] [address] [place] [address] Assigned PCP 02/22/21 Prema Hitchcock PA-C [address] [place] [address] Assigned Surgical Provider 11/04/21 Harriet Lindsay Personal Advocate & Liaison (PAL) 06/17/22 Lavern Pope MD [address] [place], [place] [address] Cardiovascular Disease 11/11/22 Lavern Pope MD [address] [place] [address] Assigned Heart and Vascular Provider 11/16/22 Elmer Paul MD [address] [place] [id number] Allergy & Immunology 02/17/23 Elmer Paul MD [address] [place] [id number] Assigned Allergy Provider 04/26/23 Batool Torres NP [address] [place] [address] Nurse Practitioner Pulmonary Disease 08/11/23 [place] [address] [address] [place] [address] Nurse Practitioner Nurse Practitioner 10/29/23 documented as of this encounter
--- OUTSIDE RECORDS SUMMARY | 2023-12-29 23:06 | XMS_ITS | Encounter Summary ---
Author Name Unknown Organization [facility] Address [address] [place] [address] Care Team Providers Care Elevator Mechanic Name Role Phone Carey Vuong MD Primary Care Provider [phone] Mehreen Scott MD Unavailable [phone] Carey Vuong MD Unavailable [phone] Prema Hitchcock PA-C Unavailable [phone] Harriet Lindsay Unavailable Unavailable Lavern Pope MD Unavailable [phone] Lavern Pope MD Unavailable [phone] Elmer Paul MD Unavailable [phone] Elmer Paul MD Unavailable [phone] Batool Torres NP Unavailable [phone] Marlene Benoit NP Unavailable [phone] Reason for Visit * Reason Comments Pre-Op Exam Encounter Details Date Type Department Care Team (Late st Contact Info) Description 12/16/2023 8:30 AM LEAD PROJECT ENGINEER Office Visit [facility] [address] [place] [address] [place] [address] [place] [address] Preop general physical exam (Primary Dx); Arthritis of left shoulder region Social History Tobacco Use Types Packs/Day Years [...] week 06/17/2022 How often do you attend [facility] or [facility] services? More than 4 times per year 06/17/2022 Do you belong to any clubs o r organizations such as samaritan groups, unions, fraternal or athletic groups, or [...] Answer Date Recorded PHQ-2 Score 2 12/17/2023 [facility] - Occupational Stress [...] Sex Assigned at Female 12/12/2019 6:30 PM LEAD PROJECT ENGINEER Gender Identity Female 12/12/2019 6:30 PM LEAD PROJECT ENGINEER Sexual Orientation Straight 04/04/2021 12 :18 PM CDT Travel History Travel Start Travel End [place] 12/06/2023 12/12/2023 documented as of this encounter Last Filed Vital Signs Vital Sign Reading Time Taken Comments Blood Pressure 121/81 12/16/2023 8:21 AM LEAD PROJECT ENGINEER Pulse 71 12/16/2023 8:21 AM LEAD PROJECT ENGINEER Temperature 37.2 ??C (98.9 ??F) 12/16/2023 8:21 AM CS T Respiratory Rate 17 12/16/2023 8:21 AM LEAD PROJECT ENGINEER Oxygen Saturation 96% 12/16/2023 8:21 AM LEAD PROJECT ENGINEER Inhaled Oxygen Concentration - - Weight 103 kg (227 lb) 12/16/2023 8:21 AM LEAD PROJECT ENGINEER Height 166.4 cm (5' 5.5) 12/16/2023 8:21 AM LEAD PROJECT ENGINEER Body Mass Index 37.2 12/16/2023 8:21 AM LEAD PROJECT ENGINEER documented in this encounter Patient Instructions * Patient Instructions* José Miguel Sol MD - 12/16/2023 8:30 AM LEAD PROJECT ENGINEER Preparing for Your Surgery Getting started A nurse will call you to review your health history and instructions. They will give you an arrivaltime based on your scheduled surgery time. Please be ready to share: Your doctor's clinic name and phone number Your medical, surgical, and anesthesia history A list of allergies and sensitivities A list of medicines, including herbal treatments and cvom-rny-xplsefa drugs Whether the patient has a legal guardian (ask how to send us the papers in advance) Please tell us if you're --or if there's any chance you might be . Some surgeries may injure a fetus (unborn baby), so they require a test. Surgeries that are safe for a fetus don't always need a test, and you can choose whether to have one. If you have a child who's having surgery, please ask for a copy of Preparing for Your Child's Surgery. Preparing for surgery Within 10 to 30 days of surgery: Have a pre-op exam (sometimes called an H&P, or History and Physical). This can be done at a clinic or pre-operative center. If you're having a , you may not need this exam. Talk to your care team. At your pre-op exam, talk to your care team about all medicines you take. If you need to stop any medicines before surgery, ask when to start taking them again. We do this for your safety. Many medicines can make you bleed too much during surgery. Some change how well surgery (anesthesia) drugs work. Call your insurance company to let them know you're having surgery. (If you don't have insurance, call [phone].) Call your clinic if there's any change in your health. This includes signs of a cold or flu (sore throat, runny nose, cough, rash, fever). It also includes a scrape or scratch near the surgery site. If you have questions on the day of surgery, call your hospital or surgery center. Eating and drinking guidelines For your safety: Unless your surgeon tells you otherwise, follow the guidelines below. Eat and drink as usual until 8 hours before you arrive for surgery. After that, no food or milk. Drink clear liquids until 2 hours before you arrive. These are liquids you can see through, like water, Gatorade, and Propel Water. They also include plain black coffee and tea (no cream or milk), candy, and breath mints. You can spit out gum when you arrive. If you drink alcohol: Stop drinking it the night before surgery. If your care team tells you to take medicine on the morning of surgery, it's okay to take it with asip of water. Preventing infection Shower or bathe the night before and morning of your surgery. Follow the instructions your clinic gave you. (If no instructions, use regular soap.) Don't shave or clip hair near your surgery site. We'll remove the hair if needed. Don't smoke or vape the morning of surgery. You may chew nicotine gum up to 2 hours before surgery.A nicotine patch is okay. Note: Some surgeries require you to completely quit smoking and nicotine. Check with your surgeon. Your care team will make every effort to keep you safe from infection. We will: Clean our hands often with soap and water (or an alcohol-based hand rub). Clean the skin at your surgery site with a special soap that kills germs. Give you a special gown to keep you warm. (Cold raises the risk of infection.) Wear special hair covers, masks, gowns and gloves during surgery. Give antibiotic medicine, if prescribed. Not all surgeries need antibiotics. What to bring on the day of surgery Photo ID and insurance card Copy of your health care directive, if you have one Glasses and hearing aids (bring cases) You can't wear contacts during surgery Inhaler and eye drops, if you use them (tell us about these when you arrive) CPAP machine or breathing device, if you use them A few personal items, if spending the night If you have . . . A pacemaker, ICD (cardiac defibrillator) or other implant: Bring the ID card. An implanted stimulator: Bring the remote control. A legal guardian: Bring a copy of the certified (court-stamped) guardianship papers. Please remove any jewelry, including body piercings. Leave jewelry and other valuables at home. If you're going home the day of surgery You must have a responsible adult drive you home. They should stay with you overnight as well. If you don't have someone to stay with you, and you aren't safe to go home alone, we may keep you overnight. Insurance often won't pay for this. After surgery If it's hard to control your pain or you need more pain medicine, please call your surgeon's office. Questions? If you have any questions for your care team, list them here: For informational purposes only. Not to replace the advice of your health care provider. Copyright ?? 2018 [facility]. All rights reserved. Clinically reviewed by Dianne Joe MD. Mi[employer] [id number] - REV 11/21. How to Take Your Medication Before Surgery - Take all of your medications before surgery as usual PROJECT ENGINEER documented in this encounter Progress Notes * José Miguel Sol MD - 12/16/2023 8:30 AM CST [place] [id number] [facility] [phone] Primary Provider: Carey Vuong Pre-op Performing Provider: JOSÉ MIGUEL SOL PREOPERATIVE EVALUATION: Today's date: 12/16/2023 Danielle is a 48 year old, presenting for the following: Pre-Op Exam 12/16/2023 8:13 AM Additional Questions Roomed by Isabel FREEDMAN Surgical Information: Surgery/Procedure: L shoulder surgery Surgery Location: [facility] center Surgeon: Dr. Barone Surgery Date: 12/19/23 Time of Surgery: TBD Where patient plans to recover: At home with family Fax number for surgical facility: [phone] Assessment and Plan (Z01.818) Preop general physical exam (primary encounter diagnosis) Comment: cleared for surgery without further eval Plan: (M19.012) Arthritis of left shoulder region Comment: Plan: RTC in [facility] [place] José Miguel Sol MD Subjective HPI related to upcoming procedure: primary OA of L shoulder. Feeling well overall, struggling a bitwith allergic rhinitis. Has persistent asthma that she feels is currently well controlled. Uses rescue inhaler rarely. Denies CP, edema, dyspnea, MOSER, vision changes. No n/v, change in bladder habits.Does have some persistent constipation/diarrhea that she is currently working on with GI 12/16/2023 7:58 AM Preop Questions 1. Have you ever had a heart attack or stroke? No 2. Have you ever had surgery on your heart or blood vessels, such as a stent placement, a coronary artery bypass, or surgery on an artery in your head, neck, heart, or legs? No 3. Do you have chest pain with activity? No 4. Do you have a history of heart failure? No 5. Do you currently have a cold, bronchitis or symptoms of other infection? No 6. Do you have a cough, shortness of breath, or wheezing? No 7. Do you or anyone in your family have previous history of blood clots? No 8. Do you or does anyone in your family have a serious bleeding problem such as prolonged bleeding following surgeries or cuts? No 9. Have you ever had problems with anemia or been told to take iron pills? No 10. Have you had any abnormal blood loss such as black, tarry or bloody stools, or abnormal vaginalbleeding? No 11. Have you ever had a blood transfusion? No 12. Are you willing to have a blood transfusion if it is medically needed before, during, or after your surgery? Yes 13. Have you or any of your relatives ever had problems with anesthesia? No 14. Do you have sleep apnea, excessive snoring or daytime drowsiness? YES - snoring 14a. Do you have a CPAP machine? No 15. Do you have any artifical heart valves or other implanted medical devices like a pacemaker, defibrillator, or continuous glucose monitor? No 16. Do you have artificial joints? YES - MARCOS knees 17. Are you allergic to latex? No 18. Is there any chance that you may be ? No Health Care Directive: Patient does not have a Health Care Directive or Living Will: Preoperative Review of NAILER MACHINE: NAILER MACHINE reviewed - no record of controlled substances prescribed. Status of Chronic Conditions: ASTHMA - Patient has a longstanding history of moderate-severe Asthma . Patient has been doing welloverall noting NO SYMPTOMS and continues on medication regimen consisting of Airduo Respclick without adverse reactions or side effects. DEPRESSION - Patient has a long history of Depression of moderate severity requiring medication forcontrol with recent symptoms being stable..Current symptoms of depression include none. HYPERLIPIDEMIA - Patient has a long history of significant Hyperlipidemia requiring medication for treatment with recent good control. Patient reports no problems or side effects with the medication. Review of Systems Constitutional, neuro, ENT, endocrine, pulmonary, cardiac, gastrointestinal, genitourinary, musculoskeletal, integument and psychiatric systems are negative, except as otherwise noted. Patient Active Problem List Diagnosis Date Noted Mild alcohol use disorder, in sustained remission 12/24/2021 Priority: Medium Class 2 obesity due to excess calories without serious comorbidity with body mass index (BMI) of 37.0 to 37.9 in adult 09/25/2021 Priority: Medium GERD without esophagitis 09/25/2021 Priority: Medium Ovarian cyst 12/22/2020 Priority: Medium LLQ abdominal pain 12/21/2020 Priority: Medium Acute recurrent maxillary sinusitis 04/17/2020 Priority: Medium Family history of melanoma 12/15/2019 Priority: Medium Pelvic floor dysfunction 03/08/2019 Priority: Medium OAB (overactive bladder) 03/05/2019 Priority: Medium Mixed stress and urge urinary incontinence 03/05/2019 Priority: Medium Fecal urgency 03/05/2019 Priority: Medium Dyspareunia in female 03/05/2019 Priority: Medium Major depressive disorder, recurrent episode, moderate (H) 10/17/2015 Priority: Medium Migraine with aura and without status migrainosus, not intractable 07/14/2013 Priority: Medium Symptomatic PVCs 07/02/2012 Priority: Medium Saw EP cardiology 06/11. Holter revealed 8200 in 24 hours (9%) s/p successful ablation 07/31/12. Allergic rhinitis 06/08/2012 Priority: Medium Mild intermittent asthma Priority: Medium Tobacco use disorder 01/30/2004 Priority: Medium Past Medical History: Diagnosis Date Asthma Cervical endometriosis Depression History of supraventricular tachycardia s/p ablation Irregular heart beat Mild intermittent asthma Overactive bladder Pain in joint, lower leg 12 knee surgeries Palpitations Urinary incontinence Past Surgical History: Procedure Laterality Date ABDOMEN SURGERY abdominal plasty ARTHROSCOPY KNEE 06/29/2012 Procedure: ARTHROSCOPY KNEE; Left Knee Arthroscopy and Drilling ; Surgeon: Cecilio Miller MD; Location: OR ANALGESIA,EPIDURAL,LABOR & 1997,2001 CL AFF SURGICAL PATHOLOGY 01/09 ESOPHAGOSCOPY, GASTROSCOPY, DUODENOSCOPY (EGD), COMBINED N/A 08/19/2014 Procedure: COMBINED ESOPHAGOSCOPY, GASTROSCOPY, DUODENOSCOPY (EGD); Surgeon: Deandre Allen DO; Location: GI [facility]ORACIC SURGERY ablation ZZC NONSPECIFIC PROCEDURE Right knee ALESSANDRA reconstruction x 2 - cartilage damage ZZC NONSPECIFIC PROCEDURE T&A ZZC NONSPECIFIC PROCEDURE PET x 8 sets ZZC NONSPECIFIC PROCEDURE multiple (11) arthroscopic knee surgeries Current Outpatient Medications Medication Sig Dispense Refill albuterol (PROAIR HFA/PROVENTIL HFA/VENTOLIN HFA) 108 (90 Base) MCG/ACT inhaler INHALE 2 PUFFS BY MOUTH EVERY 6 HOURS 8.5 g 1 atorvastatin (LIPITOR) 20 MG tablet Take 1 tablet (20 mg) by mouth daily 30 tablet 11 azelastine (ASTELIN) 0.1 % nasal spray [place] 1 spray into both nostrils at bedtime 30 mL 11 azithromycin (ZITHROMAX) 250 MG tablet buPROPion (WELLBUTRIN XL) 300 MG 24 hr tablet TAKE 1 TABLET(300 MG) BY MOUTH EVERY MORNING 90 tablet 3 citalopram (CELEXA) 40 MG tablet Take 1 tablet (40 mg) by mouth daily 90 tablet 3 fish oil-omega-3 fatty acids 1000 MG capsule Take 1 capsule by mouth daily fluticasone (FLONASE) 50 MCG/ACT nasal spray [place] 1 spray into both nostrils daily fluticasone-salmeterol (AIRDUO RESPICLICK) 113-14 MCG/ACT inhaler Inhale 1 puff into the lungs 2 times daily 1 each 4 hyoscyamine (LEVSIN/SL) 0.[address] 1-2 tablets (0.125-0.25 mg) under the tongue every 4 hours as needed for cramping Max dose 12 tabs in 24 hours. 45 tablet 1 ibuprofen (ADVIL/MOTRIN) 400 MG tablet Take 400 mg by mouth every 6 hours as needed levocetirizine (XYZAL) 5 MG tablet Take 5 mg by mouth every evening methocarbamol (ROBAXIN) 500 MG tablet Take 1-2 tablets (500-1,000 mg) by mouth 3 times daily as needed for muscle spasms 60 tablet 3 metroNIDAZOLE (METROGEL) 0.75 % vaginal gel INSERT 1 APPLICATORFUL VAGINALLY EVERY DAY FOR 5 DAYS Multiple Vitamin (MULTI-VITAMIN) per tablet Take 1 tablet by mouth daily. naltrexone (DEPADE/REVIA) 50 MG tablet 25 mg by mouth twice daily. 30 tablet 5 norethindrone (AYGESTIN) 5 MG tablet Take 5 mg by mouth daily omeprazole (PRILOSEC) [address] capsule TAKE 1 CAPSULE BY MOUTH TWICE DAILY 30 MINUTES BEFORE BREAKFAST AND DINNER omeprazole (PRILOSEC) [address] capsule TAKE 1 CAPSULE(40 MG) BY MOUTH DAILY 90 capsule 1 prednisoLONE acetate (PRED FORTE) 1 % ophthalmic suspension SHAKE LIQUID AND INSTILL 1 DROP IN LEFTEYE FOUR TIMES DAILY predniSONE (DELTASONE) 20 MG tablet RESTASIS 0.05 % ophthalmic emulsion Apply 1 drop to eye every 12 hours rifaximin (XIFAXAN) 550 MG TABS tablet Take by mouth every 8 hours Semaglutide-Weight Management (WEGOVY) 0.25 MG/0.5ML pen Inject 0.25 mg Subcutaneous once a week 2 mL 0 Semaglutide-Weight Management (WEGOVY) 0.5 MG/0.5ML pen Inject 0.5 mg Subcutaneous once a week After 4 weeks on 0.25 mg dose. 2 mL 1 sulfamethoxazole-trimethoprim (BACTRIM DS) 800-160 MG tablet Take 1 tablet by mouth 2 times daily topiramate (TOPAMAX) 25 MG tablet Take 25 mg by mouth every evening for 1 week, then 25 mg twice daily for 1 week, then 25 mg every AM and 50 mg every PM for 1 week, then 50 mg twice daily and continue. 120 tablet 1 Allergies Allergen Reactions Penicillins Itching Social History Tobacco Use Smoking status: Former Packs/day: 0.00 Years: 10.00 Additional pack years: 0.00 Total pack years: 0.00 Types: Cigarettes, Cigars Quit date: 12/01/2022 Years since quittin.0 Passive exposure: Past Smokeless tobacco: Never Tobacco comments: smokes a single cigar nightly Substance Use Topics Alcohol use: Not Currently Alcohol/week: 6.0 standard drinks of alcohol Types: 6 Glasses of wine per week History Drug Use No Objective BP 121/81 (BP Location: Right arm, Patient Position: Sitting, Cuff Size: Adult Large) Pulse 71 Temp 98.9 ??F (37.2 ??C) (Oral) Resp 17 Ht 1.664 m (5' 5.5) Wt 103 kg (227 lb) LMP (LMP Unknown) SpO2 96% BMI 37.20 kg/m?? Physical Exam Vitals and nursing note reviewed. Constitutional: Appearance: Normal appearance. HENT: Head: Normocephalic. Right Ear: Tympanic membrane, ear canal and external ear normal. Left Ear: Tympanic membrane, ear canal and external ear normal. Mouth/Throat: Mouth: Mucous membranes are moist. Pharynx: Oropharynx is clear. Eyes: Extraocular Movements: Extraocular movements intact. Conjunctiva/sclera: Conjunctivae normal. Pupils: Pupils are equal, round, and reactive to light. Neck: Thyroid: No thyroid mass or thyromegaly. Cardiovascular: Rate and Rhythm: Normal rate and regular rhythm. Pulmonary: Effort: Pulmonary effort is normal. Breath sounds: Normal breath sounds. Abdominal: General: Bowel sounds are normal. Musculoskeletal: General: Normal range of motion. Lymphadenopathy: Cervical: No cervical adenopathy. Skin: General: Skin is warm and dry. Neurological: General: No focal deficit present. Mental Status: She is alert and oriented to person, place, and time. Psychiatric: Mood and Affect: Mood normal. Behavior: Behavior normal. Recent Labs Lab Test 09/11/23 0823 07/31/23 1426 01/07/23 1427 11/19/22 1524 10/30/22 0008 07/19/22 1448 HGB 14.6 13.5 -- 14.2 < > 14.3 PLT -- 263 -- 263 < > 273 NA -- 138 -- 142 140 < > 139 POTASSIUM -- 4.0 -- 4.6 4.3 < > 4.2 CR -- 0.88 -- 1.18* 1.14* < > 0.87 A1C -- -- 5.2 -- -- 5.4 < > = values in this interval not displayed. Diagnostics: No labs were ordered during this visit. No EKG required, no history of coronary heart disease, significant arrhythmia, peripheral arterial disease or other structural heart disease. Revised Cardiac Risk Index (RCRI): The patient has the following serious cardiovascular risks for perioperative complications: - No serious cardiac risks = 0 points RCRI Interpretation: 0 points: Class I (very low risk - 0.4% complication rate) Signed Electronically by: José Miguel Sol MD Copy of this evaluation report is provided to requesting physician. Answers submitted by the patient for this visit: Patient Health Questionnaire (Submitted on 12/16/2023) If you checked off any problems, how difficult have these problems made it for you to do your work,take care of things at home, or get along with other people?: Somewhat difficult PHQ9 TOTAL SCORE: 10 PROJECT ENGINEER documented in this encounter Plan of Treatment Upcoming Encounters Date Type Department Care Team (Late st Contact Info) Description 03/19/2024 3:30 PM CDT Office Visit [facility] [address] [place] [phone] Elmer Paul MD [address] [facility] [address] [address] [place] [address] 04/16/2024 8:30 AM CDT Lab M [facility] [address] [place] [phone] 04/20/2024 8:45 AM CDT Office Visit [facility] [address] [place] [phone] Lavern Pope MD [address] [facility] [address] [place] [id number] documented as of this encounter Visit Diagnoses Diagnosis Preop general physical exam- Primary Other specified pre-operative examination Arthritis of left shoulder region Unspecified arthropathy, shoulder region documented in this encounter Additional Health Concerns Assessment Noted Time PHQ-9 Depression Total Score: 10 024 7:56 AM LEAD PROJECT ENGINEER documented as of this encounter Care Teams Elevator Mechanic Relationship Specialty Start Date End Date Carey Vuong MD [address] [place] [address] [place] [address] PCP - General 01/15/02 Mehreen Scott MD [address] [place] [phone] sprigger 12/15/19 Carey Vuong MD [address] [place] [address] [place] [address] Assigned PCP 02/22/21 Prema Hitchcock PA-C [address] [place] [address] Assigned Surgical Provider 11/04/21 Harriet Lindsay Personal Advocate & Liaison (PAL) 06/17/22 Lavern Pope MD [address] [place] [address] Cardiovascular Disease 11/11/22 Lavern Pope MD [address] [place] [address] Assigned Heart and Vascular Provider 11/16/22 Elmer Paul MD [address] [place] [address] Allergy & Immunology 02/17/23 Elmer Paul MD [address] [place] [address] Assigned Allergy Provider 04/26/23 Batool Torres, ZENOBIA [address] [place] [address] Nurse Practitioner Pulmonary Disease 08/11/23 [place] [address] [address] [place] [address] Nurse Practitioner Nurse Practitioner 10/29/23 documented as of this encounter
--- OUTSIDE RECORDS SUMMARY | 2023-12-29 23:06 | XMS_ITS | Encounter Summary ---
Author Name Unknown Organization [place] Address [address] [place] [address] Care Team Providers Care Technical Support 1 Software Engineer Name Role Phone Carey Vuong MD Primary Care Provider [phone] Mehreen Scott MD Unavailable [phone] Carey Vuong MD Unavailable [phone] Prema Hitchcock PA-C Unavailable [phone] Harriet Lindsay Unavailable Unavailable Lavern Pope MD Unavailable [phone] Lavern Pope MD Unavailable [phone] Elmer Paul MD Unavailable [phone] Elmer Paul MD Unavailable [phone] Batool Torres NP Unavailable [phone] Marlene Benoit NP Unavailable [phone] Reason for Visit * Reason Onset Date Comments Call Back 12/03/2023 Insurance compan y wants to know if you have received the fax they sent on 12/02/2023. Fax was regarding her treatment plans. Disability forms that also needs to be completed as well. Encounter Details Date Type Department Care Team (Late st Contact Info) Description 12/03/2023 Telephone [facility] [address] [place] [address] Carey Vuong MD [address] [facility] [place] [address] Call Back (Insurance company wants to know if you have received the fax they sent on 12/02/2023. Fax was regarding her treatment plans. Disability forms that also needs to be completed as well. ) Social History Tobacco Use Types Packs/Day [...] week 06/17/2022 How often do you attend [facility] or temple services? More than 4 times [...] 06/17/2022 PHQ-2 Answer Date Recorded PHQ-2 Score 6 10/14/2023 [facility] - Occupational [...] you got money to buy more? No 10/29/2023 Within the past 12 months, d id the food you bought just not last and you didn? t have money to get more? No 10/29/2023 Housing Stability Answer Date Recorded Do you have housing? Yes 10/29/2023 Are you worried about losing your housing? No 10/29/2023 Financial Resource Strain Answer Date R ecorded Within the past 12 months, h ave you or your family members you live with been unable to get utilities (heat, electricity) when it was really needed? No 10/29/2023 Transportation Needs Answer Date Record ed Within the past 12 months, h as lack of transportation kept you from medical appointments, getting your medicines, non-medical meetings or appointments, work, or from getting things that you need? No 10/29/2023 Interpersonal Safety Answer Date Record ed Do [...] Sex Assigned at Female 12/12/2019 6:30 PM ASSOCIATE BROKER Gender Identity Female 12/12/2019 6:30 PM ASSOCIATE BROKER Sexual Orientation Straight 04/04/2021 12 :18 PM CDT Travel History Travel Start Travel End [place] 12/06/2023 12/12/2023 documented as of this encounter Miscellaneous Notes * Telephone Encounter - Carey Vuong MD - 12/10/2023 7:40 PM ASSOCIATE BROKER See additional encounter. Carey Vuong M.D. CIATE BROKER * Telephone Encounter - Karina Schneider - 12/04/2023 3:29 PM CST Received fax from [place]. Form is on provider's desk for completion upon return. Karina Schneider on 12/04/2023 at 3:30 PM CIATE BROKER * Telephone Encounter - Renata Manley - 12/03/2023 9:52 AM CST Patient Returning Call Reason for call: Needs confirmation if PCP has received the faxes they sent over. Information relayed to patient: Someone from clinic will reach out. Patient has additional questions: No What are your questions/concerns: Insurance company wants to know if you have received the fax theysent on 12/02/2023. Fax was regarding her treatment plans. Disability forms that also needs to be completed as well. Please call child welfare caseworker Venita Mason at phone: [phone], fax: [phone] Could we send this information to you in [facility] or would you prefer to receive a phone call?: No preference Okay to leave a detailed message?: No at Cell number on file: Telephone Information: CIATE BROKER documented in this encounter Plan of Treatment Upcoming Encounters Date Type Department Care Team (Late st Contact Info) Description 03/19/2024 3:30 PM CDT Office Visit [address] [address] Elmer Paul MD [address] [facility] [address] [place] [address] 04/16/2024 8:30 AM CDT Lab [facility] [address] [facility] [address] [place] [phone] 04/20/2024 8:45 AM CDT Office Visit [facility] [address] [facility] [address] [place] [phone] Lavern Pope MD [address] [facility] [address] [place] [id number] documented as of this encounter Visit Diagnoses Not on filedocumented in this encounter Additional Health Concerns Assessment Noted Time PHQ-9 Depression Total Score: 22 023 12:40 PM ASSOCIATE BROKER documented as of this encounter Care Teams Technical Support 1 Software Engineer Relationship Specialty Start Date End Date Carey Vuong MD [address] [place] [address] [place] [address] PCP - General 01/15/02 Mehreen Scott MD [address] [address] [place] [phone] swing grinder 12/15/19 [place] [address] [place] [address] [place] [address] Assigned PCP 02/22/21 Prema Hitchcock PA-C [address] [place], [place] [address] Assigned Surgical Provider 11/04/21 Harriet Lindsay Personal Advocate & Liaison (PAL) 06/17/22 Lavern Pope MD [address] [place] [id number] Cardiovascular Disease 11/11/22 Lavern Pope MD [address] [place] [id number] Assigned Heart and Vascular Provider 11/16/22 Elmer Paul MD [address] [place] [address] Allergy & Immunology 02/17/23 Elmer Paul MD [address] [place] [id number] Assigned Allergy Provider 04/26/23 Batool Torres NP [address] [place] [address] Nurse Practitioner Pulmonary Disease 08/11/23 [place] [address] [address] [place] [address] Nurse Practitioner Nurse Practitioner 10/29/23 documented as of this encounter
--- OUTSIDE RECORDS SUMMARY | 2023-12-29 23:06 | XMS_ITS | Encounter Summary ---
Author Name Unknown Organization [place] Address [address] [place] [address] Care Team Providers Care Supervisor Unloading Name Role Phone Carey Vuong MD Primary Care Provider [phone] Mehreen Scott MD Unavailable [phone] Carey Vuong MD Unavailable [phone] rPema Hitchcock PA-C Unavailable [phone] Harriet Lindsay Unavailable Unavailable Lavern Pope MD Unavailable [phone] Lavern Pope MD Unavailable [phone] Elmer Paul MD Unavailable [phone] Elmer Paul MD Unavailable [phone] Batool Torres VISUAL DISPLAY MANAGER Unavailable [phone] Marlene Benoit VISUAL DISPLAY MANAGER Unavailable [phone] Reason for Visit * Reason Comments Forms Encounter Details Date Type Department Care Team (Late st Contact Info) Description 12/17/2023 10:00 AM METER AND SERVICE LINE INSPECTOR Office Visit [facility] [address] [facility] [address] [place] [address] Kayleigh Alexander, PA-C [address] [facility] [place] [address] Major depressive disorder, recurrent episode, moderate (H) (Primary Dx); Generalized anxiety disorder Social History Tobacco Use Types Packs/Day Years [...] week 06/17/2022 How often do you attend [facility] or anabaptism services? More than 4 times per year 06/17/2022 Do you belong to any clubs o r organizations such as christianity groups, unions, fraternal or athletic groups, or [...] Answer Date Recorded PHQ-2 Score 2 12/17/2023 [facility] Occupat ional Health - Occupational Stress [...] Sex Assigned at Female 12/12/2019 6:30 PM METER AND SERVICE LINE INSPECTOR Gender Identity Female 12/12/2019 6:30 PM METER AND SERVICE LINE INSPECTOR Sexual Orientation Straight 04/04/2021 12 :18 PM CDT Travel History Travel Start Travel End [place] 12/06/2023 12/12/2023 documented as of this encounter Last Filed Vital Signs Vital Sign Reading Time Taken Comments Blood Pressure 112/62 12/17/2023 9:48 AM METER AND SERVICE LINE INSPECTOR Pulse 73 12/17/2023 9:48 AM METER AND SERVICE LINE INSPECTOR Temperature 36.3 ??C (97.4 ??F) 12/17/2023 9:48 AM CS T Respiratory Rate 18 12/17/2023 9:48 AM METER AND SERVICE LINE INSPECTOR Oxygen Saturation 97% 12/17/2023 9:48 AM METER AND SERVICE LINE INSPECTOR Inhaled Oxygen Concentration - - Weight 104.4 kg (230 lb 3.2 oz) 12/17/2023 9:48 AM METER AND SERVICE LINE INSPECTOR Height 165.7 cm (5' 5.25) 12/17/2023 9:48 AM CS T Body Mass Index 38.01 12/17/2023 9:48 AM METER AND SERVICE LINE INSPECTOR documented in this encounter Progress Notes * Kayleigh Alexander PA-C - 12/17/2023 10:00 AM CST Assessment & Plan Major depressive disorder, recurrent episode, moderate (H) Generalized anxiety disorder Paperwork completed. Tanya Santos is a 48 year old, presenting for the following health issues: Forms 12/17/2023 9:42 AM Additional Questions Roomed by Sravani Bernstein CMA Via the Health Maintenance questionnaire, the patient has reported the following services have beencompleted -Cervical Cancer Screening, this information has been sent to the abstraction team. History of Present Illness Reason for visit: Paperwork She eats 4 or more servings of fruits and vegetables daily.She consumes 1 sweetened beverage(s) daily.She exercises with enough effort to increase her heart rate 30 to 60 minutes per day. She exercises with enough effort to increase her heart rate 3 or less days per week. She is missing 1 dose(s) of medications per week. Wt Readings from Last 2 Encounters: 12/17/23 104.4 kg (230 lb 3.2 oz) 12/16/23 103 kg (227 lb) Patient is here for paperwork to be completed for short term disability from her job due to flare of anxiety and depression. Objective BP 112/62 (BP Location: Right arm, Cuff Size: Adult Large) Pulse 73 Temp 97.4 ??F (36.3 ??C) (Tympanic) Resp 18 Ht 1.657 m (5' 5.25) Wt 104.4 kg (230 lb 3.2 oz) LMP (LMP Unknown) SpO2 97% BMI 38.01 kg/m?? Body mass index is 38.01 kg/m??. Review of Systems Constitutional, HEENT, cardiovascular, pulmonary, gi and gu systems are negative, except as otherwise noted. Physical Exam GENERAL: alert and no distress EYES: Eyes grossly normal to inspection, PERRL and conjunctivae and sclerae normal RESP: lungs clear to auscultation - no rales, rhonchi or wheezes CV: regular rate and rhythm, normal S1 S2, no S3 or S4, no murmur, click or rub, no peripheral edema MS: no gross musculoskeletal defects noted, no edema Signed Electronically by: Kayleigh Alexander PA-C R AND SERVICE LINE INSPECTOR documented in this encounter Plan of Treatment Upcoming Encounters Date Type Department Care Team (Late st Contact Info) Description 03/19/2024 3:30 PM CDT Office Visit [facility] Specialty [facility] [address] [facility] 200 [place] [address] Elmer Paul MD [address] [facility] 200 [place] [address] 04/16/2024 8:30 AM CDT Lab [facility] [address] [facility] [address] [place] [phone] 04/20/2024 8:45 AM CDT Office Visit [facility] [address] [facility] [address] [place] [address] Lavern Pope MD [address] [facility] [address] [place] [address] documented as of this encounter Visit Diagnoses Diagnosis Major depressive disorder, recurrent episode, moderate (H)- Primary Major depressive disorder, recurrent episode, moderate Generalized anxiety disorder documented in this encounter Additional Health Concerns Assessment Noted Time PHQ-9 Depression Total Score: 10 024 7:56 AM METER AND SERVICE LINE INSPECTOR documented as of this encounter Care Teams Supervisor Unloading Relationship Specialty Start Date End Date Carey Vuong MD [address] [place] [address] [place] [address] PCP - General 01/15/02 Mehreen Scott MD [address] [facility] [address] [place], [place] [phone] head kiln operator 12/15/19 Carey Vuong MD [address] [facility] [place] [address] Assigned PCP 02/22/21 Prema Hitchcock PA-C [address] [place] [address] Assigned Surgical Provider 11/04/21 Harriet Lindsay Personal Advocate & Liaison (PAL) 06/17/22 Lavern Pope MD [address] [place], [place] [address] Cardiovascular Disease 11/11/22 Lavern Pope MD [address] [place], [place] [address] Assigned Heart and Vascular Provider 11/16/22 Elmer Paul MD [address] [place], [place] [phone] Allergy & Immunology 02/17/23 Elmer Paul MD [address] [place] [address] Assigned Allergy Provider 04/26/23 Batool Torres, VISUAL DISPLAY MANAGER [address] [facility] [place] [address] Nurse Practitioner Pulmonary Disease 08/11/23 [place] [address] [place] [address] Nurse Practitioner Nurse Practitioner 10/29/23 documented as of this encounter
--- OUTSIDE RECORDS SUMMARY | 2023-12-29 23:06 | XMS_ITS | Encounter Summary ---
Author Name Unknown Organization [place] Address [address] [place] [address] Care Team Providers Care Sulphate Tester Name Role Phone Carey Vuong MD Primary Care Provider [phone] Mehreen Scott MD Unavailable [phone] Carey Vuong MD Unavailable Prema Hitchcock PA-C Unavailable Harriet Lindsay Unavailable Unavailable Aisha Murdock PA-C Unavailable Lavern Pope MD Unavailable [phone] Lavern Pope MD Unavailable Elmer Paul MD Unavailable [phone] Elmer Paul MD Unavailable [phone] Batool Torres NP Unavailable Marlene Benoit NP Unavailable [phone] Batool Torres NP Unavailable Encounter Details Date Type Department Care Team (Late st Contact Info) Description 11/18/2023 [facility] Pain Management [place] [address] [place] [address] [place] [address] [place] [address] Social History Tobacco Use Types Packs/Day Years [...] How often do you attend [facility] or temple services? More than 4 times per year 06/17/2022 Do you belong to any clubs o r organizations such as zoroastrianism groups, unions, fraternal or athletic groups, or [...] Answer Date Recorded PHQ-2 Score 6 10/14/2023 [facility] [place] [facility] Occupat ional Health - Occupational Stress [...] Sex Assigned at Female 12/12/2019 6:30 PM ELECTRIC CELL TENDER Gender Identity Female 12/12/2019 6:30 PM ELECTRIC CELL TENDER Sexual Orientation Straight 04/04/2021 12 :18 PM CDT Travel History Travel Start Travel End [place] 12/06/2023 12/12/2023 documented as of this encounter Miscellaneous Notes * Telephone Encounter - Mary Hong RN - 11/18/2023 11:19 AM ELECTRIC CELL TENDER Will leave encounter open for patient response/chart review by nursing. Mychart Below from pt [facility] Rosario - I hope you had a great weekend. I got my shot on Friday and I was wondering how long I'm supposed to wait for it to kick in? I'm still getting the arm tingling and numb thumb and headaches. Just wondering the timeframe before I schedule an MRI. Thanks, Danielle Mychart below response to pt Camila Santos, It may take up to 14 days for the steroid medication to start working although you may feel the effect as early as a few days after the procedure. When you last saw Marlene, she indicated to follow up with in 3-4 weeks to reassess symptoms and response to treatment. At that time, if thumb and neck pain is not improving, will plan to update cervical MRI. I have placed an order so that you should be able to schedule a follow up via [employer] [facility]. Otherwise, you can call [phone] to set something up with Marlene Benoit. Thanks! Mary GÓMEZ, RN Software Sales Manager [facility] TRIC CELL TENDER documented in this encounter Plan of Treatment Upcoming Encounters Date Type Department Care Team (Late st Contact Info) Description 03/19/2024 3:30 PM CDT Office Visit [facility] [address] [place] [address] [address] [place] [phone] Elmer Paul MD [address] [facility] 200 [place] [address] 04/16/2024 8:30 AM CDT Lab [facility] [address] [place] [address] [address] [place] [phone] 04/20/2024 8:45 AM CDT Office Visit [facility] [address] [facility] [address] [place] [phone] Lavern Pope MD [address] [facility] [address] [place] [address] documented as of this encounter Visit Diagnoses Not on filedocumented in this encounter Additional Health Concerns Assessment Noted Time PHQ-9 Depression Total Score: 22 023 12:40 PM ELECTRIC CELL TENDER documented as of this encounter Care Teams Sulphate Tester Relationship Specialty Start Date End Date Carey Vuong MD [address] [facility] [place] [address] PCP - General 01/15/02 Mehreen Scott MD [address] [facility] 100 [place] [phone] senior manager 12/15/19 Carey Vuong MD [address] [facility] [place] [address] Assigned PCP 02/22/21 Prema Hitchcock PA-C [address] [place] [address] Assigned Surgical Provider 11/04/21 Harriet Lindsay Personal Advocate & Liaison (PAL) 06/17/22 Aisha Murdock PA-C [facility] [address] [place] [address] Assigned Neuroscience Provider 06/08/22 11/28/23 Lavern Pope MD [address] [facility] [address] [place] [address] Cardiovascular Disease 11/11/22 Lavern Pope MD [address] [place] [address] Assigned Heart and Vascular Provider 11/16/22 Elmer Paul MD [address] [place] [address] Allergy & Immunology 02/17/23 Elmer Paul MD [address] [place], [place] [address] Assigned Allergy Provider 04/26/23 Batool Torres NP [address] [place] [address] Nurse Practitioner Pulmonary Disease 08/11/23 [place] [address] [place] [address] Nurse Practitioner Nurse Practitioner 10/29/23 Batool Torres NP [address] [place] [address] Assigned Pulmonology Provider 12/25/23 documented as of this encounter
--- OUTSIDE RECORDS SUMMARY | 2023-12-29 23:06 | XMS_ITS | Encounter Summary ---
Author Name Unknown Organization [place] Address [address] [place] [address] Care Team Providers Care Trouble Dispatcher Name Role Phone Carey Vuong MD Primary Care Provider [phone] Mehreen Scott MD Unavailable [phone] Carey Vuong MD Unavailable [phone] Prema Hitchcock PAOrquideaC Unavailable Harriet Lindsay Unavailable Unavailable Aisha Murdock PA-C Unavailable Lavern Pope MD Unavailable [phone] Lavern Pope MD Unavailable [phone] Elmer Paul MD Unavailable [phone] Elmer Paul MD Unavailable [phone] Batool Torres STRATEGY PLANNING CONSULTANT Unavailable +[phone] Marlene Benoit NP Unavailable [phone] Reason for Visit * Reason Comments Mental Health Problem Encounter Details Date Type Department Care Team (Late st Contact Info) Description 11/25/2023 10:00 AM COUPLER Virtual Visit [address] [place] [address] Kayleigh Alexander, BIN [address] [place] [id number] Major depressive disorder, recurrent episode, moderate (H) (Primary Dx); Depression with anxiety Social History Tobacco Use Types Packs/Day Years [...] week 06/17/2022 How often do you attend [facility] or orthodoxy services? More than 4 times per year 06/17/2022 Do you belong to any clubs o r organizations such as protestant groups, unions, fraternal or athletic groups, or [...] Answer Date Recorded PHQ-2 Score 6 10/14/2023 [facility] of Occupat ional Health - Occupational Stress [...] Sex Assigned at Female 12/12/2019 6:30 PM COUPLER Gender Identity Female 12/12/2019 6:30 PM COUPLER Sexual Orientation Straight 04/04/2021 12 :18 PM CDT Travel History Travel Start Travel End [place] 12/06/2023 12/12/2023 documented as of this encounter Progress Notes * Kayleigh Alexander PA-C - 11/25/2023 10:00 AM CST Danielle is a 48 year old who is being evaluated via a billable video visit. How would you like to obtain your AVS? MyChart If the video visit is dropped, the invitation should be resent by: Text to cell phone: [phone] Will anyone else be joining your video visit? No Assessment & Plan Major depressive disorder, recurrent episode, moderate (H) Depression with anxiety Patient made appointment today to have paperwork completed for a leave of absence from work. She isdealing with mental health issues and needs time away from work to settle them. She has chronic depression and is taking medication at this time. She has therapy setup to start tomorrow. She denies having any thoughts of wanting to hurt herself or others and does contract for safety today. Paperwork was completed with her on the phone. It is for a leave to start December 02 and go through February 01. She will need to be reassessed along the way with her mental health team. I did inform her todayof the [facility] at [facility] if she needs those services at all. Patient was also advised to seek immediate care if she develops any concerning thoughts of wanting to hurt herself or others. Patient understands and agrees with the plan today. Paperwork given to be faxed and scanned into her chart. Kayleigh [facility]-C [facility] T[facility] Santos is a 48 year old, presenting for the following health issues: No chief complaint on file. 11/25/2023 9:25 AM Additional Questions Roomed by JASMINA Atwood Accompanied by n/a 11/25/2023 9:27 AM Patient Reported Additional Medications Patient reports taking the following new medications Xifaxan 500mg CONCERNS: None HPI Has a counseling appointment this week for treatment of the mental health. Patient does have a soul retreat planned for early December in [place] she will be going to. She is currently taking her Wellbutrin and Celexa for the depression. This is a long standing issuefor her and she has dealt with depression since she was 16 years old. Review of Systems Constitutional, HEENT, cardiovascular, pulmonary, gi and gu systems are negative, except as otherwise noted. Objective Vitals: No vitals were obtained today due to virtual visit. Physical Exam GENERAL: Healthy, alert and no distress EYES: Eyes grossly normal to inspection. No discharge or erythema, or obvious scleral/conjunctival abnormalities. RESP: Visibly coughing, but in no respiratory distress on video. SKIN: Visible skin clear. No significant rash, abnormal pigmentation or lesions. NEURO: Cranial nerves grossly intact. Mentation and speech appropriate for age. PSYCH: affect normal/bright and occasionally tearful during meeting. Kayleigh Alexander PA-C Video-Visit Details Type of service: Video Visit Originating Location (pt. Location): Home Distant Location (provider location): On-site Platform used for Video Visit: Bettye LER documented in this encounter Plan of Treatment Upcoming Encounters Date Type Department Care Team (Late st Contact Info) Description 03/19/2024 3:30 PM CDT Office Visit [facility] [address] [facility] [address] [place] [address] Elmer Paul MD [address] [facility] [address] [place] [address] 04/16/2024 8:30 AM CDT Lab [facility] [address] [facility] [address] [place] [phone] 04/20/2024 8:45 AM CDT Office Visit [facility] [address] [facility] [address] [place] [address] Lavern Pope MD [address] [facility] [address] [place] [address] documented as of this encounter Visit Diagnoses Diagnosis Major depressive disorder, recurrent episode, moderate (H)- Primary Major depressive disorder, recurrent episode, moderate Depression with anxiety Dysthymic disorder documented in this encounter Additional Health Concerns Assessment Noted Time PHQ-9 Depression Total Score: 22 023 12:40 PM COUPLER documented as of this encounter Care Teams Trouble Dispatcher Relationship Specialty Start Date End Date Carey Vuong MD [address] [address] [facility] [place] [address] PCP - General 01/15/02 Mehreen Scott MD [address] [facility] [address] [place] [address] roller printing supervisor 12/15/19 Carey Vuong MD [address] [facility] [place] [address] Assigned PCP 02/22/21 Prema Hitchcock PA-C [address] [place] [address] Assigned Surgical Provider 11/04/21 Harriet Lindsay Personal Advocate & Liaison (PAL) 06/17/22 Aisha Murdock PA-C [facility] [address] [place] [address] Assigned Neuroscience Provider 06/08/22 11/28/23 Lavern Pope MD [address] [place] [id number] Cardiovascular Disease 11/11/22 Lavern Pope MD [address] [place], [place] [address] Assigned Heart and Vascular Provider 11/16/22 Elmer Paul MD [address] [place] [address] Allergy & Immunology 02/17/23 Elmer Paul MD [address] [facility] [address] [place] [address] Assigned Allergy Provider 04/26/23 Batool Torres NP [address] [place] [address] Nurse Practitioner Pulmonary Disease 08/11/23 [place] [address] [place] [address] Nurse Practitioner Nurse Practitioner 10/29/23 documented as of this encounter
--- OUTSIDE RECORDS SUMMARY | 2023-12-29 23:06 | XMS_ITS | Encounter Summary ---
Author Name Unknown Organization [facility] [place] Address [address] [place] [address] Care Team Providers Care Environment Artist Name Role Phone Carey Vuong MD Primary Care Provider [phone] Mehreen Scott MD Unavailable [phone] Carey Vuong MD Unavailable [phone] Prema Hitchcock PA-C Unavailable [phone] Harriet Lindsay Unavailable Unavailable Lavern Pope MD Unavailable [phone] Lavern Pope MD Unavailable [phone] Elmer Paul MD Unavailable [phone] Elmer Paul MD Unavailable [phone] Batool Torres NP Unavailable Marlene Benoit NP Unavailable [phone] Batool Torres NP Unavailable [phone] Encounter Details Date Type Department Care Team (Late st Contact Info) Description 12/10/2023 [facility] [address] [place] [address] Ericka Arora Social History Tobacco Use Types Packs/Day Years [...] week 06/17/2022 How often do you attend [facility] or yarsanism services? More than 4 times per year 06/17/2022 Do you belong to any clubs o r organizations such as sikh groups, unions, fraternal or athletic groups, or [...] Answer Date Recorded PHQ-2 Score 6 10/14/2023 [facility] Health - Occupational Stress Questionnaire Answer Date [...] Sex Assigned at Female 12/12/2019 6:30 PM WELL SERVICE PUMP EQUIPMENT OPERATOR Gender Identity Female 12/12/2019 6:30 PM WELL SERVICE PUMP EQUIPMENT OPERATOR Sexual Orientation Straight 04/04/2021 12 :18 PM CDT Travel History Travel Start Travel End [place] 12/06/2023 12/12/2023 documented as of this encounter Miscellaneous Notes * Telephone Encounter - Paty Nielsen RN - 12/11/2023 8:22 AM WELL SERVICE PUMP EQUIPMENT OPERATOR [place] paperwork-last visit for [place] when this was discussed was with Kayleigh Alexander PA-C on 11/25. Routing to Kayleigh to take a look at the form and see what type of appointment is required to complete the paperwork. Paty Nielsen RN SERVICE PUMP EQUIPMENT OPERATOR documented in this encounter Plan of Treatment Upcoming Encounters Date Type Department Care Team (Late st Contact Info) Description 03/19/2024 3:30 PM CDT Office Visit [facility] [address] [facility] [address] [place] [phone] Elmer Paul MD [address] [facility] [address] [place] [address] 04/16/2024 8:30 AM CDT Lab [facility] [address] [facility] [address] [place] [address] 04/20/2024 8:45 AM CDT Office Visit [facility] [address] [facility] [address] [place] [address] Lavern Pope MD [address] [facility] [address] [place] [id number] documented as of this encounter Visit Diagnoses Not on filedocumented in this encounter Additional Health Concerns Assessment Noted Time PHQ-9 Depression Total Score: 22 10/14/ 023 12:40 PM WELL SERVICE PUMP EQUIPMENT OPERATOR documented as of this encounter Care Teams Environment Artist Relationship Specialty Start Date End Date Carey Vuong MD [address] [place] [address] [place] [address] PCP - General 01/15/02 Mehreen Scott MD [address] [facility] [address] [place] [address] surveyor mine 12/15/19 Carey Vuong MD [address] [place] [address] [place] [address] Assigned PCP 02/22/21 Prema Hitchcock PA-C [address] [place] [address] Assigned Surgical Provider 11/04/21 Harriet Lindsay Personal Advocate & Liaison (PAL) 06/17/22 Lavern Pope MD [address] [place], [place] [address] Cardiovascular Disease 11/11/22 Lavern Pope MD [address] [place], [place] [address] Assigned Heart and Vascular Provider 11/16/22 Elmer Paul MD [address] [place], [place] [address] Allergy & Immunology 02/17/23 Elmer Paul MD [address] [place], [place] [address] Assigned Allergy Provider 04/26/23 Batool Torres MEDICAID ANALYST [address] [facility] [place] [address] Nurse Practitioner Pulmonary Disease 08/11/23 [place] [address] [place] [address] Nurse Practitioner Nurse Practitioner 10/29/23 Batool Torres NP [address] [place] [address] Assigned Pulmonology Provider 12/25/23 documented as of this encounter
--- OUTSIDE RECORDS SUMMARY | 2023-12-29 23:06 | XMS_ITS | Encounter Summary ---
Author Name Unknown Organization [facility] Address [address] [place] [address] Care Team Providers Care Manager Mail Name Role Phone Carey Vuong MD Primary Care Provider [phone] Mehreen Scott MD Unavailable [phone] Carey Vuong MD Unavailable [phone] Prema HitchcockC Unavailable [phone] Harriet Lindsay Unavailable Unavailable Aisha MurdockC Unavailable Lavern Pope MD Unavailable [phone] Lavern Pope MD Unavailable [phone] Elmer Paul MD Unavailable [phone] Elmer Paul MD Unavailable [phone] Batool Torres NP Unavailable [phone] Marlene Benoit NP Unavailable Reason for Visit * Reason Onset Date Comments Patient Inquiry 11/18/2023 Forms 11/18/2023 Encounter Details Date Type Department Care Team (Late st Contact Info) Description 11/18/2023 [facility] Advice [address] [place] [phone] Carey Vuong MD [address] [facility] [place] [address] Patient Inquiry; Forms Social History Tobacco Use Types Packs/Day [...] week 06/17/2022 How often do you attend [facility] or sabianism services? More than 4 times per year 06/17/2022 Do you belong to any clubs o r organizations such as pentecostalism groups, unions, fraternal or athletic groups, or [...] Answer Date Recorded PHQ-2 Score 6 10/14/2023 [facility] of Occupat ional Health - Occupational Stress [...] Sex Assigned at Female 12/12/2019 6:30 PM BANKING REPRESENTATIVE Gender Identity Female 12/12/2019 6:30 PM BANKING REPRESENTATIVE Sexual Orientation Straight 04/04/2021 12 :18 PM CDT Travel History Travel Start Travel End [place] 12/06/2023 12/12/2023 documented as of this encounter Miscellaneous Notes * Telephone Encounter - Harriet Lindsay 11/25/2023 10:50 AM CST Paperwork faxed to [email or web address] Copy made and abstracted and original sent to pt ING REPRESENTATIVE * Telephone Encounter - Marcos Thomas RN - 11/18/2023 12:42 PM CST Patient sending [employer] message regarding ongoing symptoms. Patient is currently scheduled for OV 11/25/23 w/ semiconductor manufacturing technician. Do you advise sooner appointment? Approval req. appointment with you? Marcos Solomon RN 11/18/2023 at 12:43 PM ING REPRESENTATIVE documented in this encounter Plan of Treatment Upcoming Encounters Date Type Department Care Team (Late st Contact Info) Description 03/19/2024 3:30 PM CDT Office Visit [facility] [address] [facility] 200 [place] [phone] Elmer Paul MD [address] [facility] [address] [place] [address] 04/16/2024 8:30 AM CDT Lab [facility] [address] [facility] [address] [place] [address] 04/20/2024 8:45 AM CDT Office Visit [facility] [address] [facility] [address] [facility] [address] [place] [address] Lavern Pope MD [address] [facility] [address] [place], [place] [address] documented as of this encounter Visit Diagnoses Diagnosis Migraine without aura and without status migrainosus, not intractable- Primary Migraine without aura, without mention of intractable migraine without mention of status migrainosus documented in this encounter Additional Health Concerns Assessment Noted Time PHQ-9 Depression Total Score: 22 10/14/2 023 12:40 PM BANKING REPRESENTATIVE documented as of this encounter Care Teams Manager Mail Relationship Specialty Start Date End Date Carey Vuong MD [address] [facility] [place] [address] PCP - General 01/15/02 Mehreen Scott MD [address] [place] [address] [place] [phone] accuracy expert 12/15/19 Carey Vuong MD [address] [facility] [place] [address] Assigned PCP 02/22/21 Prema Hitchcock PA-C [address] [place] [address] Assigned Surgical Provider 11/04/21 Harriet Lindsay Personal Advocate & Liaison (PAL) 06/17/22 Aisha Murdock PA-C [facility] [address] [place] [address] Assigned Neuroscience Provider 06/08/22 11/28/23 Lavern Pope MD [address] [place] [address] Cardiovascular Disease 11/11/22 Lavern Pope MD [address] [place], [place] [address] Assigned Heart and Vascular Provider 11/16/22 Elmer Paul MD [address] [place] [address] Allergy & Immunology 02/17/23 Elmer Paul MD [address] [place] [address] Assigned Allergy Provider 04/26/23 Batool Torres NP [address] [facility] [place] [place] [address] Nurse Practitioner Pulmonary Disease 08/11/23 [place] [address] [place] [address] Nurse Practitioner Nurse Practitioner 10/29/23 documented as of this encounter
--- OUTSIDE RECORDS SUMMARY | 2023-12-29 23:06 | XMS_ITS | Encounter Summary ---
Author Name Unknown Organization [place] Address [address] [place] [address] Care Team Providers Care Soundscriber Mechanic Name Role Phone Carey Vuong MD Primary Care Provider [phone] Mehreen Scott MD Unavailable [phone] Carey Vuong MD Unavailable [phone] Prema Hitchcock PA-C Unavailable [phone] Harriet Lindsay Unavailable Unavailable Lavern Pope MD Unavailable [phone] Lavern Pope MD Unavailable [phone] Elmer Paul MD Unavailable [phone] Elmer Paul MD Unavailable [phone] Batool Torres NP Unavailable [phone] Marlene Benoit NP Unavailable [phone] Encounter Details Date Type Department Care Team (Late st Contact Info) Description 12/18/2023 [facility] [address] [place] [address] [address] [place] [address] Elemr Paul MD [address] [facility] [address] [place] [address] Social History Tobacco Use Types Packs/Day Years [...] 06/17/2022 How often do you attend [facility] or confucianist services? More than 4 times per year 06/17/2022 Do you belong to any clubs o r organizations such as denominational groups, unions, fraternal or athletic groups, or [...] Answer Date Recorded PHQ-2 Score 2 12/17/2023 [facility] of Occupat ional Health - Occupational [...] Sex Assigned at Female 12/12/2019 6:30 PM CORPORATE HUMAN RESOURCES MANAGER Gender Identity Female 12/12/2019 6:30 PM CORPORATE HUMAN RESOURCES MANAGER Sexual Orientation Straight 04/04/2021 12 :18 PM CDT Travel History Travel Start Travel End [place] 12/06/2023 12/12/2023 documented as of this encounter Plan of Treatment Upcoming Encounters Date Type Department Care Team (Late st Contact Info) Description 03/19/2024 3:30 PM CDT Office Visit [facility] [address] [place] [address] [place] [address] Elmer Paul MD [address] [place] [address] 04/16/2024 8:30 AM CDT Lab [facility] [address] [facility] [address] [place] [phone] 04/20/2024 8:45 AM CDT Office Visit [facility] [address] [facility] [address] [place] [address] Lavern Pope MD [address] [facility] [address] [place] [address] documented as of this encounter Visit Diagnoses Not on filedocumented in this encounter Additional Health Concerns Assessment Noted Time PHQ-9 Depression Total Score: 10 024 7:56 AM CORPORATE HUMAN RESOURCES MANAGER documented as of this encounter Care Teams Soundscriber Mechanic Relationship Specialty Start Date End Date Carey Vuong MD [address] [place] [address] [place] [address] PCP - General 01/15/02 Mehreen Scott MD [address] [facility] [address] [place] [address] family living educator 12/15/19 Carey Vuong MD [address] [place] [address] [place] [address] Assigned PCP 02/22/21 Prema Hitchcock PA-C [address] [place], [place] [address] Assigned Surgical Provider 11/04/21 Harriet Lindsay Personal Advocate & Liaison (PAL) 06/17/22 Lavern Pope MD [address] [place] [phone] Cardiovascular Disease 11/11/22 Lavern Pope MD [address] [place] [address] Assigned Heart and Vascular Provider 11/16/22 Elmer Paul MD [address] [place] [address] Allergy & Immunology 02/17/23 Elmer Paul MD [address] [place] [address] Assigned Allergy Provider 04/26/23 Batool Torres NP [address] [facility] [place] [address] Nurse Practitioner Pulmonary Disease 08/11/23 [place] [address] [address] [place] [address] Nurse Practitioner Nurse Practitioner 10/29/23 documented as of this encounter
--- OUTSIDE RECORDS SUMMARY | 2023-12-29 23:06 | XMS_ITS | Encounter Summary ---
Author Name Unknown Organization [facility] Address [address] [place] [address] Care Team Providers Care Publishing Editor Name Role Phone Carey Vuong MD Primary Care Provider [phone] Mehreen Scott MD Unavailable [phone] Carey Vuong MD Unavailable [phone] Prema Hitchcock PA-C Unavailable [phone] Harriet Lindsay Unavailable Unavailable Lavern Pope MD Unavailable [phone] Lavern Pope MD Unavailable [phone] Elmer Paul MD Unavailable [phone] Elmer Paul MD Unavailable [phone] Batool Torres NP Unavailable [phone] Marlene Benoit NP Unavailable Reason for Visit * Reason Comments Asthma Recheck Mild persistent asth ma with acute exacerbation +1 more Encounter Details Date Type Department Care Team (Late st Contact Info) Description 12/17/2023 3:30 PM CHURN DRILLER HELPER Office Visit [address] [address] Elmer Paul MD [address] [place] [address] Mild persistent asthma without complication (Primary Dx); Allergic rhinitis due to animal (cat) (dog) hair and dander Social History Tobacco Use Types Packs/Day Years Used Date Smoking Tobacco: Former Cigarettes 0 10 Cigars Quit: 12/01/19 23 Passive Smoke Exposure: Past Smokeless Tobacco: Never Tobacco Cessation:Counseling Given: Not Answered Comments:smokes a single cigar nightly Alcohol Use Standard Drinks/Week Comments Not [...] you attend [facility] or adventism services? More than 4 times per year 06/17/2022 Do you belong to any clubs o r organizations such as advent groups, unions, fraternal or athletic groups, or [...] Answer Date Recorded PHQ-2 Score 2 12/17/2023 [facility] [place] of Occupat ional Health - Occupational Stress [...] Sex Assigned at Female 12/12/2019 6:30 PM CHURN DRILLER HELPER Gender Identity Female 12/12/2019 6:30 PM CHURN DRILLER HELPER Sexual Orientation Straight 04/04/2021 12 :18 PM CDT Travel History Travel Start Travel End [place] 12/06/2023 12/12/2023 documented as of this encounter Last Filed Vital Signs Vital Sign Reading Time Taken Comments Blood Pressure 109/76 12/17/2023 2:58 PM CHURN DRILLER HELPER Pulse 76 12/17/2023 2:58 PM CHURN DRILLER HELPER Temperature - - Respiratory Rate - - Oxygen Saturation 98% 12/17/2023 2:58 PM CHURN DRILLER HELPER Inhaled Oxygen Concentration - - Weight 104.3 kg (230 lb) 12/17/2023 2:58 PM CHURN DRILLER HELPER pt reported Height - - Body Mass Index 37.98 12/17/2023 9:48 AM CHURN DRILLER HELPER documented in this encounter Patient Instructions * Patient Instructions* Elmer Paul MD - 12/17/2023 3:30 PM CHURN DRILLER HELPER Flonase Sensimist (Flonase) - 1-2 sprays each nostril daily Xyzal 5 mg daily Prescribed Advair and Symbicort to see which will be covered. Albuterol 2 puffs every 4 hours as needed Follow up in 3 months N DRILLER HELPER documented in this encounter Progress Notes * Elmer Paul MD - 12/17/2023 3:30 PM CST Danielle Garza was seen in the Allergy Clinic at [facility]. Danielle Garza is a 48 year old female being seen today for ongoing evaluation of Mild persistent asthma and allergic rhinitis to dog and cat. Since the last visit the patient has had some medical problems. At the last appointment in May she was doing quite well and in fact is feeling better than she hadin years. She was using AirDuo 1 puff daily sometimes twice daily. Spirometry was normal at that time. She was also using Xyzal and Flonase. For some reason she stopped using Flonase and cannot recall why. She does not feel Astelin is helping at this time. She has seen an ENT provider due to difficulty swallowing and was identified to have thrush. At that time she was on numerous antibiotics for small intestinal bacterial overgrowth. Cipro and Bactrim and Xifaxan were all prescribed over the last several months. She stopped antibiotics recently. She is having increased postnasal drainage. She will be following up with ENT shortly The AirDuo is no longer be going to be covered by insurance. Past Medical History: Diagnosis Date Asthma Cervical endometriosis Depression History of supraventricular tachycardia s/p ablation Irregular heart beat Mild intermittent asthma Overactive bladder Pain in joint, lower leg 12 knee surgeries Palpitations Urinary incontinence Family History Problem Relation Age of Onset Neurologic Disorder Mother migraine Diabetes Father Diabetes Brother Diabetes Maternal Grandmother Cardiovascular Paternal Grandmother Cerebrovascular Disease Paternal Grandfather Diabetes Paternal Grandfather Past Surgical History: Procedure Laterality Date ABDOMEN SURGERY abdominal plasty ARTHROSCOPY KNEE 06/29/2012 Procedure: ARTHROSCOPY KNEE; Left Knee Arthroscopy and Drilling ; Surgeon: Cecilio Miller MD; Location: [facility] C ANALGESIA,EPIDURAL,LABOR & 1997,2001 CL AFF SURGICAL PATHOLOGY 01/09 ESOPHAGOSCOPY, GASTROSCOPY, DUODENOSCOPY (EGD), COMBINED N/A 08/19/2014 Procedure: COMBINED ESOPHAGOSCOPY, GASTROSCOPY, DUODENOSCOPY (EGD); Surgeon: Deandre Allen DO; Location: [facility] TH[facility]ACIC SURGERY ablation [facility] NONSPECIFIC PROCEDURE Right knee ALESSANDRA reconstruction x 2 - cartilage damage [facility] NONSPECIFIC PROCEDURE T&A [facility] NONSPECIFIC PROCEDURE PET x 8 sets [facility] NONSPECIFIC PROCEDURE multiple (11) arthroscopic knee surgeries Current Outpatient Medications: albuterol (PROAIR HFA/PROVENTIL HFA/VENTOLIN HFA) 108 (90 Base) MCG/ACT inhaler, INHALE 2 PUFFS BY MOUTH EVERY 6 HOURS, Disp: 8.5 g, Rfl: 1 atorvastatin (LIPITOR) 20 MG tablet, Take 1 tablet (20 mg) by mouth daily, Disp: 30 tablet, Rfl: 11 budesonide-formoterol (SYMBICORT) 160-4.5 MCG/ACT Inhaler, Inhale 2 puffs into the lungs 2 times daily, Disp: 10.2 g, Rfl: 11 buPROPion (WELLBUTRIN XL) 300 MG 24 hr tablet, TAKE 1 TABLET(300 MG) BY MOUTH EVERY MORNING, Disp: 90 tablet, Rfl: 3 citalopram (CELEXA) 40 MG tablet, Take 1 tablet (40 mg) by mouth daily, Disp: 90 tablet, Rfl: 3 fish oil-omega-3 fatty acids 1000 MG capsule, Take 1 capsule by mouth daily, Disp: , Rfl: fluticasone-salmeterol (ADVAIR) 250-50 MCG/ACT inhaler, Inhale 1 puff into the lungs every 12 hours, Disp: 1 each, Rfl: 11 fluticasone-salmeterol (AIRDUO RESPICLICK) 113-14 MCG/ACT inhaler, Inhale 1 puff into the lungs 2 times daily, Disp: 1 each, Rfl: 4 hyoscyamine (LEVSIN/SL) 0.125 MG sublingual tablet, Place 1-2 tablets (0.125- 0.25 mg) under the tongue every 4 hours as needed for cramping Max dose 12 tabs in 24 hours., Disp: 45 tablet, Rfl: 1 ibuprofen (ADVIL/MOTRIN) 400 MG tablet, Take 400 mg by mouth every 6 hours as needed, Disp: , Rfl: levocetirizine (XYZAL) 5 MG tablet, Take 5 mg by mouth every evening, Disp: , Rfl: methocarbamol (ROBAXIN) 500 MG tablet, Take 1-2 tablets (500-1,000 mg) by mouth 3 times daily as needed for muscle spasms, Disp: 60 tablet, Rfl: 3 Multiple Vitamin (MULTI-VITAMIN) per tablet, Take 1 tablet by mouth daily. , Disp: , Rfl: naltrexone (DEPADE/REVIA) 50 MG tablet, 25 mg by mouth twice daily., Disp: 30 tablet, Rfl: 5 norethindrone (AYGESTIN) 5 MG tablet, Take 5 mg by mouth daily, Disp: , Rfl: omeprazole (PRILOSEC) [address] capsule, TAKE 1 CAPSULE BY MOUTH TWICE DAILY 30 MINUTES BEFORE BREAKFAST AND DINNER, Disp: , Rfl: omeprazole (PRILOSEC) [address] capsule, TAKE 1 CAPSULE(40 MG) BY MOUTH DAILY, Disp: 90 capsule, Rfl: 1 Probiotic Product (PROBIOTIC PO), , Disp: , Rfl: RESTASIS 0.05 % ophthalmic emulsion, Apply 1 drop to eye every 12 hours, Disp: , Rfl: topiramate (TOPAMAX) 25 MG tablet, Take 25 mg by mouth every evening for 1 week, then 25 mg twice daily for 1 week, then 25 mg every AM and 50 mg every PM for 1 week, then 50 mg twice daily and continue., Disp: 120 tablet, Rfl: 1 azelastine (ASTELIN) 0.1 % nasal spray, [place] 1 spray into both nostrils at bedtime (Patient not taking: Reported on 12/17/2023), Disp: 30 mL, Rfl: 11 fluticasone (FLONASE) 50 MCG/ACT nasal spray, [place] 1 spray into both nostrils daily (Patient not taking: Reported on 12/17/2023), Disp: , Rfl: prednisoLONE acetate (PRED FORTE) 1 % ophthalmic suspension, SHAKE LIQUID AND INSTILL 1 DROP IN LEFT EYE FOUR TIMES DAILY (Patient not taking: Reported on 12/17/2023), Disp: , Rfl: rifaximin (XIFAXAN) 550 MG TABS tablet, Take by mouth every 8 hours (Patient not taking: Reported on 12/17/2023), Disp: , Rfl: Semaglutide-Weight Management (WEGOVY) 0.25 MG/0.5ML pen, Inject 0.25 mg Subcutaneous once a week (Patient not taking: Reported on 12/17/2023), Disp: 2 mL, Rfl: 0 Semaglutide-Weight Management (WEGOVY) 0.5 MG/0.5ML pen, Inject 0.5 mg Subcutaneous once a week After 4 weeks on 0.25 mg dose. (Patient not taking: Reported on 12/17/2023), Disp: 2 mL, Rfl: 1 Allergies Allergen Reactions Penicillins Itching EXAM: BP 109/76 (BP Location: Left arm, Patient Position: Sitting, Cuff Size: Adult Large) Pulse 76 Wt 104.3 kg (230 lb) LMP (LMP Unknown) SpO2 98% BMI 37.98 kg/m?? Constitutional: General: She is not in acute distress. Appearance: Normal appearance. She is not ill-appearing. HENT: Head: Normocephalic and atraumatic. Nose: Nose normal. No congestion or rhinorrhea. Mouth/Throat: Mouth: Mucous membranes are moist. Pharynx: Oropharynx is clear. No posterior oropharyngeal erythema. No evidence of thrush. Eyes: General: Right eye: No discharge. Left eye: No discharge. Cardiovascular: Rate and Rhythm: Normal rate and regular rhythm. Heart sounds: Normal heart sounds. Pulmonary: Effort: Pulmonary effort is normal. Breath sounds: Normal breath sounds. No wheezing or rhonchi. Skin: General: Skin is warm. Findings: No erythema or rash. Neurological: General: No focal deficit present. Mental Status: She is alert. Mental status is at baseline. Psychiatric: Mood and Affect: Mood normal. Behavior: Behavior normal. ASSESSMENT/PLAN: Danielle Garza is a 48 year old female seen today for evaluation of asthma and allergic rhinitis. Having increased symptoms since seen in May. AirDuo is no longer going to be covered by insurance. She has had a recent episode of thrush and has had multiple antibiotics prescribed due to small intestinal bacterial overgrowth. I feel the thrush is most likely related to the multiple antibioticsrather than the inhaled steroid since she had been on that for years without having any issues. Flonase Sensimist (Flonase) - 1-2 sprays each nostril daily Xyzal 5 mg daily Prescribed Advair and Symbicort to see which will be covered. Either would be used twice daily. Albuterol 2 puffs every 4 hours as needed Follow up in 3 months. If doing well at follow-up will change to 6 months. Thank you for allowing me to participate in the care of Danielle Garza. I spent 30 minutes on the date of the encounter doing chart review, history and exam, documentationand further coordination as noted above exclusive of separately reported interpretations Elmer Paul MD Allergy/Immunology [facility] N DRILLER HELPER documented in this encounter Plan of Treatment Upcoming Encounters Date Type Department Care Team (Late st Contact Info) Description 03/19/2024 3:30 PM CDT Office Visit [facility] Specialty [facility] [address] [facility] [address] [place] [phone] Elmer Paul MD [address] [facility] [address] [place] [address] 04/16/2024 8:30 AM CDT Lab [facility] Heart [facility] [address] [place] [phone] 04/20/2024 8:45 AM CDT Office Visit [facility] [address] [place] [phone] Lavern Pope MD [address] [facility] [address] [place] [address] documented as of this encounter Visit Diagnoses Diagnosis Mild persistent asthma without complication- Primary Unspecified asthma Allergic rhinitis due to animal (cat) (dog) hair and dander documented in this encounter Additional Health Concerns Assessment Noted Time PHQ-9 Depression Total Score: 10 024 7:56 AM CHURN DRILLER HELPER documented as of this encounter Care Teams Publishing Editor Relationship Specialty [place] [address] [place] [address] [place] [address] PCP - General 01/15/02 Mehreen Scott MD [address] [facility] [address] [place] [phone] pea viner mechanic 12/15/19 [place] [address] [place] [address] [place] [address] Assigned PCP 02/22/21 Prema Hitchcock PA-C [address] [place] [address] Assigned Surgical Provider 11/04/21 Harriet Lindsay Personal Advocate & Liaison (PAL) 06/17/22 Lavern Pope MD [address] [facility] [address] [place] [address] Cardiovascular Disease 11/11/22 Lavern Pope MD [address] [place] [address] Assigned Heart and Vascular Provider 11/16/22 Elmer Paul MD [address], [address] [place] [address] Allergy & Immunology 02/17/23 Elmer Paul MD [address] [place] [address] Assigned Allergy Provider 04/26/23 Batool Torres NP [address] [facility] [place] [address] Nurse Practitioner Pulmonary Disease 08/11/23 [place] [address] [place] [address] Nurse Practitioner Nurse Practitioner 10/29/23 documented as of this encounter
--- OUTSIDE RECORDS SUMMARY | 2023-12-29 23:06 | XMS_ITS | Encounter Summary ---
Author Name Unknown Organization [facility] Address [address] [place] [address] Care Team Providers Care Nail Setter Name Role Phone Carey Vuong MD Primary Care Provider [phone] Mehreen Scott MD Unavailable [phone] Carey Vuong MD Unavailable [phone] Prema Hitchcock PA-C Unavailable [phone] Harriet Lindsay Unavailable Unavailable Lavern Pope MD Unavailable [phone] Lavern Pope MD Unavailable [phone] Elmer Paul MD Unavailable [phone] Elmer Paul MD Unavailable [phone] Batool Torres NP Unavailable Marlene Benoit NP Unavailable [phone] Batool Torres NP Unavailable [phone] Encounter Details Date Type Department Care Team (Late st Contact Info) Description 12/02/2023 [facility] [address] [place] [address] Carey Vuong MD [address] [place] [address] Social History Tobacco Use Types Packs/Day Years [...] week 06/17/2022 How often do you attend [facility] or mandaen services? More than 4 times per year 06/17/2022 Do you belong to any clubs o r organizations such as mormonism groups, unions, fraternal or athletic groups, or [...] Answer Date Recorded PHQ-2 Score 6 10/14/2023 [facility] of Occupat ional Health - Occupational [...] Sex Assigned at Female 12/12/2019 6:30 PM FALL INTERNSHIP Gender Identity Female 12/12/2019 6:30 PM FALL INTERNSHIP Sexual Orientation Straight 04/04/2021 12 :18 PM CDT Travel History Travel Start Travel End [place] 12/06/2023 12/12/2023 documented as of this encounter Miscellaneous Notes * Telephone Encounter - Kayleigh Alexander PA-C - 12/12/2023 11:28 AM FALL INTERNSHIP Camila, Yes, this paperwork is different paperwork, that include physical exam details, therefore in personappointment is advised. Also, for leave paperwork, we need appointments so that the patient understands how the questions are answered so we are all on the same page. I am happy to help with paperwork, but she will need a separate appointment for this. Thank you, Kayleigh Alexander PA-C INTERNSHIP * Telephone Encounter - Kayleigh Alexander PA-C - 12/11/2023 8:28 AM FALL INTERNSHIP Patient needs an in person office visit to complete this paperwork. Please help her get scheduled for this. Thank you, Kayleigh INTERNSHIP * Telephone Encounter - Karina Schneider - 12/04/2023 12:51 PM CST Form placed on provider's desk for completion. MyC sent to pt to let her know fax was received and waiting for completion upon providers return. Forwarding to provider. Karina Schneider on 12/04/2023 at 12:55 PM INTERNSHIP documented in this encounter Plan of Treatment Upcoming Encounters Date Type Department Care Team (Late st Contact Info) Description 03/19/2024 3:30 PM CDT Office Visit [facility] [address] [facility] [address] [place] [phone] Elmer Paul MD [address] , [address] [place] [address] 04/16/2024 8:30 AM CDT Lab [facility] Heart [facility] [address] [facility] [address] [place] [phone] 04/20/2024 8:45 AM CDT Office Visit [facility] Heart [facility] [address] [facility] [address] [place] [address] Lavern Pope MD [address] [place] [address] documented as of this encounter Visit Diagnoses Not on filedocumented in this encounter Additional Health Concerns Assessment Noted Time PHQ-9 Depression Total Score: 22 023 12:40 PM FALL INTERNSHIP documented as of this encounter Care Teams Nail Setter Relationship Specialty [place] [address] [place] [address] [place] [address] PCP - General 01/15/02 Mehreen Scott MD [address] [place] [address] [place] [phone] concrete mixing truck driver 12/15/19 [place] [address] [place] [address] [place] [address] Assigned PCP 02/22/21 Prema Hitchcock PA-C [address] [place] [address] Assigned Surgical Provider 11/04/21 Harriet Lindsay Personal Advocate & Liaison (PAL) 06/17/22 Lavern Pope MD [address] [place] [address] Cardiovascular Disease 11/11/22 Lavern Pope MD [address] [place] [address] Assigned Heart and Vascular Provider 11/16/22 Elmer Paul MD [address] [place] [address] Allergy & Immunology 02/17/23 Elmer Paul MD [address] [place] [address] Assigned Allergy Provider 04/26/23 Batool Torres, DIRECTOR OF SCOUT WORK [address] [address] Nurse Practitioner Pulmonary Disease 08/11/23 [place] [address] [address] [place] [address] Nurse Practitioner Nurse Practitioner 10/29/23 Batool Torres DIRECTOR OF SCOUT WORK [address] [place] [address] Assigned Pulmonology Provider 12/25/23 documented as of this encounter
--- OUTSIDE RECORDS SUMMARY | 2023-12-29 23:06 | XMS_ITS | Encounter Summary ---
Author Name Unknown Organization [facility] Address [address] [place] [address] Care Team Providers Care Emergency Preparedness Manager Name Role Phone Carey Vuong MD Primary Care Provider [phone] Mehreen Scott MD Unavailable [phone] Carey Vuong MD Unavailable [phone] Prema HitchcockC Unavailable Harriet Lindsay Unavailable Unavailable Lavern Pope MD Unavailable [phone] Lavern Pope MD Unavailable [phone] Elmer Paul MD Unavailable [phone] Elmer Paul MD Unavailable [phone] Batool Torres MARKETING PLANNING MANAGER Unavailable Marlene Benoit NP Unavailable [phone] Encounter Details Date Type Department Care Team (Late st Contact Info) Description 12/11/2023 Telephone [facility] [address] [place] [address] Kayleigh Alexander, PA-C [address] [place] [address] Social History Tobacco Use Types Packs/Day Years [...] How often do you attend [facility] or mormonism services? More than 4 times per year 06/17/2022 Do you belong to any clubs o r organizations such as confucianism groups, unions, fraternal or athletic groups, or [...] Answer Date Recorded PHQ-2 Score 6 10/14/2023 [facility] of Occupat ional Health - [...] Getting School Help Needed Not on file 10/04 /2023 Food Insecurity Answer Date Recorded Within the [...] Sex Assigned at Female 12/12/2019 6:30 PM WIRELESS MANAGER Gender Identity Female 12/12/2019 6:30 PM WIRELESS MANAGER Sexual Orientation Straight 04/04/2021 12 :18 PM CDT Travel History Travel Start Travel End [place] 12/06/2023 12/12/2023 documented as of this encounter Miscellaneous Notes * Telephone Encounter - Ericka Arora - 12/11/2023 5:04 PM CST Spoke with pt and scheduled. Ericka Arora on 12/11/2023 at 5:04 PM LESS MANAGER * Telephone Encounter - Faye Edmond PTA - 12/11/2023 9:51 AM CST Reason for Call: Appointment Request Patient requesting this type of appt: Short term disability paper work Requested provider: Kayleigh Alexander Reason patient unable to be scheduled: Not within requested timeframe When does patient want to be seen/preferred time: 3-7 days Comments: [facility] or would you prefer to receive a phone call?: Patient would prefer a phone call Okay to leave a detailed message?: Yes at Cell number on file: Telephone Information: Call taken on 12/11/2023 at 9:52 AM by Faye Edmond PTA LESS MANAGER documented in this encounter Plan of Treatment Upcoming Encounters Date Type Department Care Team (Late st Contact Info) Description 03/19/2024 3:30 PM CDT Office Visit [facility] Specialty [facility] [address] [facility] [address] [place] [phone] Elmer Paul MD [address] [facility] [address] [place] [address] 04/16/2024 8:30 AM CDT Lab [facility] Heart [facility] [address] [facility] [address] [place] [phone] 04/20/2024 8:45 AM CDT Office Visit [facility] [address] [facility] [address] [place] [phone] Lavern Pope MD [address] [facility] [address] [place] [address] documented as of this encounter Visit Diagnoses Not on filedocumented in this encounter Additional Health Concerns Assessment Noted Time PHQ-9 Depression Total Score: 22 10/14/2 023 12:40 PM WIRELESS MANAGER documented as of this encounter Care Teams Emergency Preparedness Manager Relationship Specialty Start Date End Date Carey Vuong MD [address] [facility] [place] [address] PCP - General 01/15/02 Mehreen Scott MD [address] [facility] [address] [place] [address] organ builder 12/15/19 Carey Vuong MD [address] [facility] [place] [address] Assigned PCP 02/22/21 Prema Hitchcock PA-C [address] [place], [place] [address] Assigned Surgical Provider 11/04/21 Harriet Lindsay Personal Advocate & Liaison (PAL) 06/17/22 Lavern Pope MD [address] [place], [place] [address] Cardiovascular Disease 11/11/22 Lavern Pope MD [address] [place], [place] [address] Assigned Heart and Vascular Provider 11/16/22 Elmer Paul MD [address] [place], [place] [address] Allergy & Immunology 02/17/23 Elmer Paul MD [address] [place], [place] [address] Assigned Allergy Provider 04/26/23 Batool Torres NP [address] [place] [address] [place] [address] Nurse Practitioner Pulmonary Disease 08/11/23 [place] [address] [place] [address] Nurse Practitioner Nurse Practitioner 10/29/23 documented as of this encounter
--- OUTSIDE RECORDS SUMMARY | 2023-12-29 23:06 | XMS_ITS | Encounter Summary ---
Author Name Unknown Organization [place] [facility] Address [address] [place] [address] Care Team Providers Care Supply Chain Consultant Name Role Phone Carey Vuong MD Primary Care Provider [phone] Mehreen Scott MD Unavailable [phone] Carey Vuong MD Unavailable [phone] Prema Hitchcock PA-C Unavailable +[phone] Harriet Lindsay Unavailable Unavailable Lavern Pope MD Unavailable [phone] Lavern Pope MD Unavailable [phone] Elmer Paul MD Unavailable [phone] Elmer Paul MD Unavailable [phone] Batool Torres NP Unavailable [phone] Marlene Benoit NP Unavailable [phone] Encounter Details Date Type Department Care Team (Latest Contact Info) Description 12/16/2023 Travel Social History Tobacco Use Types Packs/Day [...] any clubs o r organizations such as temple groups, unions, fraternal or athletic groups, or [...] Answer Date Recorded PHQ-2 Score 2 12/17/2023 [facility] of Occupat ional Health - Occupational Stress [...] Sex Assigned at Female 12/12/2019 6:30 PM AUTO MECHANIC APPRENTICE Gender Identity Female 12/12/2019 6:30 PM AUTO MECHANIC APPRENTICE Sexual Orientation Straight 04/04/2021 12 :18 PM CDT Travel History Travel Start Travel End [place] 12/06/2023 12/12/2023 documented as of this encounter Plan of Treatment Upcoming Encounters Date Type Department Care Team (Late st Contact Info) Description 03/19/2024 3:30 PM CDT Office Visit [facility] Specialty [facility] [address] [place] [address] [address] [place] [phone] Elmer Paul MD [address] , [address] [place] [address] 04/16/2024 8:30 AM CDT Lab [facility] Heart [address] [place] [phone] 04/20/2024 8:45 AM CDT Office Visit [facility] Heart [facility] [address] [facility] [address] [place] [phone] Lavern Pope MD 65[address] [facility] 275 [place] [address] documented as of this encounter Visit Diagnoses Not on filedocumented in this encounter Additional Health Concerns Assessment Noted Time PHQ-9 Depression Total Score: 10 024 7:56 AM AUTO MECHANIC APPRENTICE documented as of this encounter Care Teams Supply Chain Consultant Relationship Specialty Start Date End Date Carey Vuong MD [address] [place] [address] [place] [address] PCP - General 01/15/02 Mehreen Scott MD [address] [facility] 100 [place] [phone] fixture builder 12/15/19 [place] [address] [place] [address] [place] [address] Assigned PCP 02/22/21 Prema Hitchcock PA-C 6[address] [facility] [place] [address] Assigned Surgical Provider 11/04/21 Harriet Lindsay Personal Advocate & Liaison (PAL) 06/17/22 Lavern Pope MD 6525 [facility] 275 [place] [address] Cardiovascular Disease 11/11/22 Lavern Pope MD [address] [facility] 275 [place] [address] Assigned Heart and Vascular Provider 11/16/22 Elmer Paul MD [address] , [address] [place] [address] Allergy & Immunology 02/17/23 Elmer Paul MD [address] [facility] , [address] [place], [place] [address] Assigned Allergy Provider 04/26/23 Batool Torres NP [address] [facility] [place] [place] [address] Nurse Practitioner Pulmonary Disease 08/11/23 [place] [address] [place] [address] Nurse Practitioner Nurse Practitioner 10/29/23 documented as of this encounter
--- OUTSIDE RECORDS SUMMARY | 2023-12-29 23:06 | XMS_ITS | Encounter Summary ---
Author Name Unknown Organization [place] Address [address] [place] [address] Care Team Providers Care Admitting Representative Name Role Phone Carey Vuong MD Primary Care Provider [phone] Mehreen Scott MD Unavailable [phone] Carey Vuong MD Unavailable [phone] Prema Hitchcock PA-C Unavailable +[phone] Harriet Lindsay Unavailable Unavailable Lavern Pope MD Unavailable [phone] Lavern Pope MD Unavailable [phone] Elmer Paul MD Unavailable [phone] Elmer Paul MD Unavailable [phone] Batool Torres NP Unavailable [phone] Marlene Benoit NP Unavailable [phone] Reason for Visit * Reason Onset Date Comments Appointment 12/11/2023 Pre-op and STD p aperwork Encounter Details Date Type Department Care Team (Late st Contact Info) Description 12/11/[address] [place] [address] Kayleigh Alexander PA-C [address] [place] [address] Appointment (Pre-op and STD paperwork) Social History Tobacco Use Types Packs/Day Years [...] How often do you attend [facility] or zoroastrian services? More than 4 times [...] Answer Date Recorded PHQ-2 Score 2 12/16/2023 [facility] of Occupat ional Health - Occupational Stress [...] Sex Assigned at Female 12/12/2019 6:30 PM SECRETARY TO THE VICE PRESIDENT Gender Identity Female 12/12/2019 6:30 PM SECRETARY TO THE VICE PRESIDENT Sexual Orientation Straight 04/04/2021 12 :18 PM CDT Travel History Travel Start Travel End [place] 12/06/2023 12/12/2023 documented as of this encounter Miscellaneous Notes * Telephone Encounter - Ericka Arora - 12/15/2023 9:10 AM CST Spoke with pt. Rescheduled to next day. Ericka Arora on 12/15/2023 at 9:10 AM ETARY TO THE VICE PRESIDENT * Telephone Encounter - Kayleigh Alexander PA-C - 12/12/2023 9:52 AM SECRETARY TO THE VICE PRESIDENT Unfortunately, the paperwork that we have in the clinic to complete is quite extensive and cannot be paired with a pre-op. Pre-ops needs to be separate visits. Please help patient schedule two different visits on two different days. Thank you, Kayleigh Alexander PA-C ETARY TO THE VICE PRESIDENT * Telephone Encounter - Ericka Arora - 12/11/2023 5:01 PM CST Pt has a pre-op scheduled 12/16 at [facility] and an office visit on 12/16 at [facility] to go over STD paperwork. Unsure if she can complete two primary care appointments on the same day, if one is a pre-op. Kayleigh - Would you be able to complete the pre-op and the STD paperwork in the same visit since PCP completed as much of the paperwork as she could? Informed pt that financial writer will send pt a MyC message with answer about the appointments. Ericka Arora on 12/11/2023 at 5:03 PM ETARY TO THE VICE PRESIDENT documented in this encounter Plan of Treatment Upcoming Encounters Date Type Department Care Team (Late st Contact Info) Description 03/19/2024 3:30 PM CDT Office Visit [facility] Specialty [address] [place] [address] Elmer Paul MD [address] , [address] [place], [place] [address] 04/16/2024 8:30 AM CDT Lab [facility] Heart [address] [place] [address] 04/20/2024 8:45 AM CDT Office Visit [facility] [address] [facility] [address] [place] [phone] Lavern Pope MD [address] [facility] 275 [place] [id number] documented as of this encounter Visit Diagnoses Not on filedocumented in this encounter Additional Health Concerns Assessment Noted Time PHQ-9 Depression Total Score: 22 10/14/ 023 12:40 PM SECRETARY TO THE VICE PRESIDENT documented as of this encounter Care Teams Admitting Representative Relationship Specialty Start Date End Date Carey Vuong MD [address] [place] [address] [place] [address] PCP - General 01/15/02 Mehreen Scott MD [address] [facility] 100 [place] [phone] funeral car chauffeur 12/15/19 Carey Vuong MD [address] [place] [address] [place] [address] Assigned PCP 02/22/21 Prema Hitchcock PA-C [address] [facility] [place] [address] Assigned Surgical Provider 11/04/21 Harriet Lindsay Personal Advocate & Liaison (PAL) 06/17/22 Lavern Pope MD [address] [facility] 275 [place] [address] Cardiovascular Disease 11/11/22 Lavern Pope MD [address] [place] [address] Assigned Heart and Vascular Provider 11/16/22 Elmer Paul MD [address], [address] [place] [phone] Allergy & Immunology 02/17/23 Elmer Paul MD [address], [address] [place] [address] Assigned Allergy Provider 04/26/23 Batool Torres NP [address] [facility] [address] Nurse Practitioner Pulmonary Disease 08/11/23 [place] [address] [address] [place] [address] Nurse Practitioner Nurse Practitioner 10/29/23 documented as of this encounter
--- OUTSIDE RECORDS SUMMARY | 2023-12-29 23:07 | XMS_ITS | Encounter Summary ---
Author Name Unknown Organization [facility] Address [address] [place] [address] Care Team Providers Care Cobol Engineer Name Role Phone Carey Vuong MD Primary Care Provider [phone] Mehreen Scott MD Unavailable [phone] Carey Vuong MD Unavailable [phone] Prema HitchcockC Unavailable [phone] Harriet Lindsay Unavailable Unavailable Aisha MurdockC Unavailable Lavern Pope MD Unavailable [phone] Lavern Pope MD Unavailable [phone] Elmer Paul MD Unavailable [phone] Elmer Paul MD Unavailable [phone] Batool Torres NP Unavailable Marlene Benoit NP Unavailable [phone] Batool Torres NP Unavailable Reason for Visit * Reason Onset Date Comments mental health therapy 11/12/2023 Encounter Details Date Type Department Care Team (Late st Contact Info) Description 11/12/2023 MyC Medical Advice [facility] [address] [facility] [address] [place] [address] Carey Vuong MD [address] [facility] [place] [address] mental health therapy Social History Tobacco Use Types Packs/Day Years [...] week 06/17/2022 How often do you attend [facility] or faith services? More than 4 times per year 06/17/2022 Do you belong to any clubs o r organizations such as hindu groups, unions, fraternal or athletic groups, or [...] Answer Date Recorded PHQ-2 Score 6 10/14/2023 [facility] of Occupat ional Health - Occupational Stress [...] Sex Assigned at Female 12/12/2019 6:30 PM ADMISSIONS GATE ATTENDANT Gender Identity Female 12/12/2019 6:30 PM ADMISSIONS GATE ATTENDANT Sexual Orientation Straight 04/04/2021 12 :18 PM CDT Travel History Travel Start Travel End [place] 12/06/2023 12/12/2023 documented as of this encounter Miscellaneous Notes * Telephone Encounter - Paty Nielsen RN - 11/13/2023 8:06 AM ADMISSIONS GATE ATTENDANT Message to patient to let us know if she needs anything -see communication below and triage note for more info Patient is scheduled for therapy outside of . FYI to her PAL. Paty Nielsen RN SSIONS GATE ATTENDANT * Telephone Encounter - Carey Vuong MD - 11/12/2023 8:40 PM ADMISSIONS GATE ATTENDANT Noted. Sounds like she has upcoming appt. Let me know if anything else from me needed at this time. Carey Vuong M.D. SSIONS GATE ATTENDANT * Telephone Encounter - Trisha Bernstein - 11/12/2023 3:42 PM CSTSummary: Urgent [facility] appointment offered and declined Patient was able to schedule this service with external provider for 11/19, declined urgent [facility] appointment. SSIONS GATE ATTENDANT * Telephone Encounter - Paty Nielsen RN - 11/12/2023 2:13 PM ADMISSIONS GATE ATTENDANT Routing the message to HELLEN Madden and the scheduling pool. Patient needs an appointment with [facility] at [facility] within 3 days. Please do as follows: 1. Schedule patient into a ???[facility] New?? slot. 2. If a New slot is not available, schedule into two mrhi-xb-segc ???[facility]HC return?? slots. (If doingthis: please message C team informing them to change the two return slots to a 60 minute [facility]HC NEW slot at ???x?? -time.) 3. If two vssb-kq-vfor returns are unavailable, you can use one-30 minute ???[facility]HC return?? slot andchange the length of the visit to 30 minutes. (If doing this: please message C team informing them to change the return slot to a 30 minute [facility]HC NEW slot at ???x?? time.) 4. If there are no open return slots, please schedule into two himx-au-ugtq ???Unavailable-other cFTE Activity?? slots. 5. If two lgfu-ls-hsca ???unavailable-other cFTE activity?? slots are not available, you can schedule into one-30 minute ???unavailable-other cFTE activity?? slot and change the length of the visitto 30 minutes. 6. If clinic [facility] is unavailable, please schedule with next available [facility]. 7. If patient is unavailable at time of call, [facility] will leave a voicemail and copy/paste this pool message into patient message and then respond to the referring provider that a message has been left for patient. Chart review: Patient currently on Wellbutrin XL 300mg every morning and Citalopram 40mg once daily Last visit 11/05 and depression was not addressed at this appointment. Symptoms today: Patient sent a message today reporting that she has been struggling with mental health, crying all the time now -trying to start therapy -considering [facility] from work Per chart review, depression was not discussed at the last few visits, PHQ-9 was done on 10/14 whenpatient sent a message to increase her depression medication. Last visit addressing depression was with Kayleigh Alexander PA-C on 07/18/23- restarted citalopram which was later increased to 40mg once daily -no mental health referral on file, routed to Dr. Vuong to sign in separate triage encounter Assessment and plan: I called patient to discuss. -Family and her senior technical project manager are aware of her mental issues and she states that she has a good support system -She feels stock in place and unable to get out of this -Problems with mental health due to medical issues and recent weight gain of 50lbs. She hates the way she looks. -She contracts for safety. She denies any thoughts of harming herself or others, feels safe at homeand work. -Has a good support system and can always reach out to them. -She is aware to go the [facility] in case she ever has thoughts of suicide. Today, she denies thoughts, active or passive, no plan. We discussed therapy and patient in agreement. She used to have therapy outside of [facility] a whileago, but has not reestablished with any provider. I offered a referral in our system and she agreed. I offered an appointment with our [facility] and patient in agreement. She is aware that this will be in interim until she can see a therapist. She is aware that this is therapy and not medication management. Paty Nielsen, RN SSIONS GATE ATTENDANT documented in this encounter Plan of Treatment Upcoming Encounters Date Type Department Care Team (Late st Contact Info) Description 03/19/2024 3:30 PM CDT Office Visit [facility] [place] [address] [facility] [address] [place] [phone] Elmer Paul MD [address] [facility] [address] [place] [address] 04/16/2024 8:[address] [facility] Heart [facility] [address] [facility] [address] [place] [phone] 04/20/2024 8:45 AM CDT Office [facility] Heart [facility] [address] [facility] [address] [place] [phone] Lavern Pope MD [address] [facility] [address] [place] [address] documented as of this encounter Visit Diagnoses Not on filedocumented in this encounter Additional Health Concerns Assessment Noted Time PHQ-9 Depression Total Score: 22 10/14/ 023 12:40 PM ADMISSIONS GATE ATTENDANT documented as of this encounter Care Teams Cobol Engineer Relationship Specialty Start Date End Date Carey Vuong MD [address] [facility] [place] [address] PCP - General 01/15/02 Mehreen Scott MD [address] [facility] [address] [place] [phone] affirmative action officer 12/15/19 Carey Vuong MD [address] [place] [address] Assigned PCP 02/22/21 Prema Hitchcock PA-C [address] [place] [address] Assigned Surgical Provider 11/04/21 Harriet Lindsay Personal Advocate & Liaison (PAL) 06/17/22 Aisha Murdock PA-C [facility] [address] [place] [address] Assigned Neuroscience Provider 06/08/22 11/28/23 Lavern Pope MD [address] [place], [place] [address] Cardiovascular Disease 11/11/22 Lavern Pope MD [address] [place], [place] [address] Assigned Heart and Vascular Provider 11/16/22 Elmer Paul MD [address] [place] [address] Allergy & Immunology 02/17/23 Elmer Paul MD [address], [address] [place] [address] Assigned Allergy Provider 04/26/23 Batool Torres NP [address]55 [place] [address] Nurse Practitioner Pulmonary Disease 08/11/23 [place] [address] [place] [address] Nurse Practitioner Nurse Practitioner 10/29/23 Batool Torres NP [address] [place] [address] Assigned Pulmonology Provider 12/25/23 documented as of this encounter
--- OUTSIDE RECORDS SUMMARY | 2023-12-29 23:07 | XMS_ITS | Encounter Summary ---
Author Name Unknown Organization [facility] Address [address] [place] [address] Care Team Providers Care Aluminum Pourer Name Role Phone Carey Vuong MD Primary Care Provider [phone] Mehreen Scott MD Unavailable [phone] Carey Vuong MD Unavailable [phone] Prema Hitchcock PA-C Unavailable Harriet Lindsay Unavailable Unavailable Aisha MurdockC Unavailable [phone] Lavern Pope MD Unavailable [phone] Lavern Pope MD Unavailable [phone] Elmer Paul MD Unavailable [phone] Elmer Paul MD Unavailable [phone] Batool Torres VERTICAL MILL OPERATOR Unavailable [phone] Marlene Benoit NP Unavailable [phone] Encounter Details Date Type Department Care Team (Late st Contact Info) Description 11/04/2023 [facility] Pain Management [address] [place] [address] Marlene Benoit, [place]OB[place] [address] [place] [address] Class 2 obesity due to excess calories without serious comorbidity with body mass index (BMI) of 36.0 to 36.9 in adult Social History Tobacco Use Types Packs/Day Years [...] week 06/17/2022 How often do you attend [facility] or yazidi services? More than 4 times per year [...] Answer Date Recorded PHQ-2 Score 6 10/14/2023 [facility] of Occupat ional Health - Occupational [...] Sex Assigned at Female 12/12/2019 6:30 PM MANAGER ACUTE Gender Identity Female 12/12/2019 6:30 PM MANAGER ACUTE Sexual Orientation Straight 04/04/2021 12 :18 PM CDT Travel History Travel Start Travel End [place] 12/06/2023 12/12/2023 documented as of this encounter Miscellaneous Notes * Telephone Encounter - Mary Hong RN - 11/04/2023 1:17 PM CST Will leave encounter open for patient response/chart review by nursing. Mychart Below from pt That doesn't make sense, Marlene just removed them today on accident. Why do I need a new prescription? It should never have been removed. Mychart below response to pt Danielle, Hopefully I can help provide some clarification. When you were checked into your appointment today,a verification of your current medications occurred with our MA. The medications were marked as no longer taking/no plan to continue as per your request. As a second verification, Marlene Benoit clarified with you prior to her canceling them off of your list. When this occurs, your prescription are cancelled in your chart as well as at the pharmacy. As we do not prescribe them, you will need tohave the prescribing provider reorder them for you. Mary GÓMEZ, RN House Wirer Helper [facility] Pain Management GER ACUTE * Telephone Encounter - Yazmin Mendez RN - 11/04/2023 1:03 PM MANAGER ACUTE Images from the original note were not included. You Danielle Pedro now (1:05 PM) MYRNA Santos, You will need to reach out to Dr Vuong for new prescriptions when you are ready as they have already been removed. Thanks much, Yazmin Ver[place]zco RN House Wirer Helper [facility] This MyChart message has not been read. Danielle Robledo Pain Nurse (supporting Marlene Benoit, ZENOBIA)4 hours ago (9:05 AM) Hi Dr Rosario - I think you inadvertently removed my Wegovy .25 and .50 from my med list. Those are should still beon there. Can you put them back on? Thanks, Danielle GER ACUTE documented in this encounter Plan of Treatment Upcoming Encounters Date Type Department Care Team (Late st Contact Info) Description 03/19/2024 3:30 PM CDT Office Visit [facility] [place] [address] [facility] [address] [place] [phone] Elmer Paul MD [address] [facility] [address] [place] [address] 04/16/2024 8:[address] [facility] Heart [facility] [address] [facility] [address] [place] [phone] 04/20/2024 8:45 AM CDT Office Visit [facility] [address] [facility] [address] [place] [phone] Lavern Pope MD [address] [facility] [address] [place] [phone] documented as of this encounter Visit Diagnoses Diagnosis Class 2 obesity due to excess calories without serious comorbidity with body mass index (BMI) of 36.0 to 36.9 in adult documented in this encounter Additional Health Concerns Assessment Noted Time PHQ-9 Depression Total Score: 22 023 12:40 PM MANAGER ACUTE documented as of this encounter Care Teams Aluminum Pourer Relationship Specialty Start Date End Date Carey Vuong MD [address] [place] [address] [place] [address] PCP - General 01/15/02 Mehreen Scott MD [address] [place] [address] [place] [phone] pharmacy ancillary 12/15/19 Carey Vuong MD [address] [place] [address] [place] [address] Assigned PCP 02/22/21 Prema Hitchcock PA-C [address] [place], [place] [address] Assigned Surgical Provider 11/04/21 Harriet Lindsay Personal Advocate & Liaison (PAL) 06/17/22 Aisha Murdock PA-C [facility] [address] [place] [address] Assigned Neuroscience Provider 06/08/22 11/28/23 Lavern Pope MD [address] [facility] [address] [facility] [address] [place], [place] [address] Cardiovascular Disease 11/11/22 Lavern Pope MD [address] [facility] [address] [place], [place] [address] Assigned Heart and Vascular Provider 11/16/22 Elmer Paul MD [address], [address] [place], [place] [address] Allergy & Immunology 02/17/23 Elmer Paul MD [address] [place], [place] [address] Assigned Allergy Provider 04/26/23 Batool Torres NP [address] [facility] [place] [address] Nurse Practitioner Pulmonary Disease 08/11/23 [place] [address] [place] [address] Nurse Practitioner Nurse Practitioner 10/29/23 documented as of this encounter
--- OUTSIDE RECORDS SUMMARY | 2023-12-29 23:07 | XMS_ITS | Encounter Summary ---
Author Name Unknown Organization [facility] Address [address] [place] [address] Care Team Providers Care Photographer Apprentice Lithographic Name Role Phone Carey Vuong MD Primary Care Provider [phone] Mehreen Scott MD Unavailable [phone] Carey Vuong MD Unavailable Prema Hitchcock PA-C Unavailable [phone] Harriet Lindsay Unavailable Unavailable Aisha MurdockC Unavailable Lavern Pope MD Unavailable [phone] Lavern Pope MD Unavailable [phone] Elmer Paul MD Unavailable [phone] Elmer Paul MD Unavailable [phone] Batool Torres NP Unavailable [phone] Marlene Benoit NP Unavailable [phone] Encounter Details Date Type Department Care Team (Late st Contact Info) Description 11/04/2023 [facility] [address] [place] [address] Carey Vuong MD [address] [facility] [place] [address] Social History Tobacco Use Types Packs/Day Years [...] week 06/17/2022 How often do you attend [facility] or rastafari services? More than 4 times [...] Answer Date Recorded PHQ-2 Score 6 10/14/2023 [facility] - Occupational [...] Sex Assigned at Female 12/12/2019 6:30 PM PIERCER OPERATOR Gender Identity Female 12/12/2019 6:30 PM PIERCER OPERATOR Sexual Orientation Straight 04/04/2021 12 :18 PM CDT Travel History Travel Start Travel End [place] 12/06/2023 12/12/2023 documented as of this encounter Plan of Treatment Upcoming Encounters Date Type Department Care Team (Late st Contact Info) Description 03/19/2024 3:30 PM CDT Office Visit [place] [address] [place] [address] Elmer Paul MD [address] , [address] [place] [id number] 04/16/2024 8:30 AM CDT Lab [facility] [address] [facility] [address] [place] [phone] 04/20/2024 8:45 AM CDT Office Visit [facility] [address] [facility] [address] [place] [phone] Lavern Pope MD [address] [facility] [address] [place] [id number] documented as of this encounter Visit Diagnoses Not on filedocumented in this encounter Additional Health Concerns Assessment Noted Time PHQ-9 Depression Total Score: 22 023 12:40 PM PIERCER OPERATOR documented as of this encounter Care Teams Photographer Apprentice Lithographic Relationship Specialty Start Date End Date Carey Vuong MD [address] [place] [address] [place] [address] PCP - General 01/15/02 Mehreen Scott MD [address] [facility] [address] [place] [phone] counterintelligence analyst 12/15/19 Carey Vuong MD [address] [place] [address] [place] [address] Assigned PCP 02/22/21 Prema Hitchcock PA-C [address] [place] [address] Assigned Surgical Provider 11/04/21 Harriet Lindsay Personal Advocate & Liaison (PAL) 06/17/22 Aisha Murdock PA-C [facility] [address] [place] [address] Assigned Neuroscience Provider 06/08/22 11/28/23 Lavern Pope MD [address] [facility] [address] [place] [address] Cardiovascular Disease 11/11/22 Lavern Pope MD [address] [facility] [address] [place] [address] Assigned Heart and Vascular Provider 11/16/22 Elmer Paul MD [address], [address] [place] [address] Allergy & Immunology 02/17/23 Elmer Paul MD [address], [address] [place] [address] Assigned Allergy Provider 04/26/23 Batool Torres NP [address] [place] [place] [address] Nurse Practitioner Pulmonary Disease 08/11/23 [place] [address] [place] [address] Nurse Practitioner Nurse Practitioner 10/29/23 documented as of this encounter
--- OUTSIDE RECORDS SUMMARY | 2023-12-29 23:07 | XMS_ITS | Encounter Summary ---
Author Name Unknown Organization [facility] Address [address] [place] [address] Care Team Providers Care Nut Sheller Machine Operator Name Role Phone Carey Vuong MD Primary Care Provider [phone] Mehreen Scott MD Unavailable [phone] Carey Vuong MD Unavailable [phone] Prema HitchcockC Unavailable [phone] Harriet Lindsay Unavailable Unavailable Aisha MurdockC Unavailable [phone] Lavern Pope MD Unavailable [phone] Lavern Pope MD Unavailable [phone] Elmer Paul MD Unavailable [phone] Elmer Paul MD Unavailable [phone] Batool Torres NP Unavailable [phone] Marlene Benoit NP Unavailable [phone] Batool Torres NP Unavailable Reason for Referral * Medication Prior Authorization - Closed Specialty Diagnoses / Procedures Referred By Contdhara t Referred To Contact Diagnoses Class 2 obesity due to excess calories without serious comorbidity with body mass index (BMI) of 37.0 to 37.9 in adult Carey Vuong MD [address] [place] [address] [place] [address] Referral ID Status Reason Start Date Expiration Date Visits Re quested Visits Authorized [id number] Closed 1 1 ENT EXAMINER * Medication Prior Authorization - Closed Specialty Diagnoses / Procedures Referred By Contdhara t Referred To Contact Diagnoses Class 2 obesity due to excess calories without serious comorbidity with body mass index (BMI) of 37.0 to 37.9 in adult Carey Vuong MD [address] [place] [address] [place] [address] Referral ID Status Reason Start Date Expiration Date Visits Re quested Visits Authorized [id number] Closed 1 1 ENT EXAMINER Reason for Visit * Reason Onset Date Comments Refill Request 11/04/2023 New Med Request 11/04/2023 Wegovy 0.25mg/0. 5ml soaj Encounter Details Date Type Department Care Team (Late st Contact Info) Description 11/04/2023 Telephone [facility] [address] [place] [address] [address] [place] [phone] Carey Vuong MD [address] [place] [address] [place] [address] Refill Request; New Med Request (Wegovy 0.25mg/0.5ml soaj) Social History Tobacco Use Types Packs/Day Years [...] 06/17/2022 How often do you attend [facility] or samaritan services? More than 4 times per year 06/17/2022 Do you belong to any clubs o r organizations such as muslim groups, unions, fraternal or athletic groups, or [...] Answer Date Recorded PHQ-2 Score 6 10/14/2023 [facility] ional Health - Occupational [...] Sex Assigned at Female 12/12/2019 6:30 PM GARMENT EXAMINER Gender Identity Female 12/12/2019 6:30 PM GARMENT EXAMINER Sexual Orientation Straight 04/04/2021 12 :18 PM CDT Travel History Travel Start Travel End [place] 12/06/2023 12/12/2023 documented as of this encounter Miscellaneous Notes * Telephone Encounter - Karina Schneider - 11/05/2023 8:20 AM CST Sent My[facility]. Karina Schneider on 11/05/2023 at 8:20 AM ENT EXAMINER * Telephone Encounter - Carey Vuong MD - 11/04/2023 7:51 PM GARMENT EXAMINER Pls let her know I sent rx. Second rx sent for 0.5 mg dose to start after 4 weeks. She will need tolet pharmacy know when she needs this filled. Carey Vuong M.D. ENT EXAMINER * Telephone Encounter - Carey Aguirre - 11/04/2023 9:34 AM CST Pt is requesting new rx for Wegovy 0.25mg/0.5ml soaj Did not see on active med list please verify and send new rx. Thank you! [facility] [phone] ENT EXAMINER documented in this encounter Plan of Treatment Upcoming Encounters Date Type Department Care Team (Late st Contact Info) Description 03/19/2024 3:30 PM CDT Office Visit [facility] Specialty [facility] [address] [facility] [address] [place] [address] Elmer Paul MD [address] [facility] [address] [place] [address] 04/16/2024 8:30 AM CDT Lab [facility] Heart [facility] [address] [facility] [address] [place] [phone] 04/20/2024 8:45 AM CDT Office Visit [facility] Heart [facility] [address] [facility] [address] [place] [phone] Lavern Pope MD [address] [facility] [address] [place] [id number] documented as of this encounter Visit Diagnoses Diagnosis Class 2 obesity due to excess calories without serious comorbidity with body mass index (BMI) of 37.0 to 37.9 in adult- Primary documented in this encounter Additional Health Concerns Assessment Noted Time PHQ-9 Depression Total Score: 22 023 12:40 PM GARMENT EXAMINER documented as of this encounter Care Teams Nut Sheller Machine Operator Relationship Specialty [place] [address] [place] [address] [place] [address] PCP - General 01/15/02 Mehreen Scott MD [address] [place] [phone] conveyor line bakery worker 12/15/19 Carey Vuong MD [address] [place] [address] Assigned PCP 02/22/21 Prema Hitchcock PA-C [address] [place], [place] [address] Assigned Surgical Provider 11/04/21 Harriet Lindsay Personal Advocate & Liaison (PAL) 06/17/22 Aisha Murdock PA-C [facility] [address] [place] [address] Assigned Neuroscience Provider 06/08/22 11/28/23 Lavern Pope MD [address] [place] [phone] Cardiovascular Disease 11/11/22 Lavern Pope MD [address] [place] [phone] Assigned Heart and Vascular Provider 11/16/22 Elmer Paul MD [address], [address] [place], [place] [address] Allergy & Immunology 02/17/23 Elmer Paul MD [address], [address] [place], [place] [address] Assigned Allergy Provider 04/26/23 Batool Torres NP [address] [place] [address] Nurse Practitioner Pulmonary Disease 08/11/23 [place] [address] [address] [place] [address] Nurse Practitioner Nurse Practitioner 10/29/23 Batool Torres, ZENOBIA [address] [place] [address] Assigned Pulmonology Provider 12/25/23 documented as of this encounter
--- OUTSIDE RECORDS SUMMARY | 2023-12-29 23:07 | XMS_ITS | Encounter Summary ---
Author Name Unknown Organization [facility] Address [address] [place] [address] Care Team Providers Care Electrical Engineering Technician Name Role Phone Carey Vuong MD Primary Care Provider Mehreen Scott MD Unavailable [phone] Carey Vuong MD Unavailable [phone] Prema Hitchcock PA-C Unavailable Harriet Lindsay Unavailable Unavailable Aisha MurdockC Unavailable [phone] Lavern Pope MD Unavailable [phone] Lavern Pope MD Unavailable [phone] Elmer Paul MD Unavailable [phone] Elmer Paul MD Unavailable [phone] Batool Torres NP Unavailable Marlene Benoit NP Unavailable [phone] Encounter Details Date Type Department Care Team (Latest Contact Info) Description 11/12/2023 Travel Social History Tobacco Use Types Packs/Day [...] do you attend [facility] or pentecostalism services? More than 4 times per year 06/17/2022 Do you belong to any clubs o r organizations such as yarsanism groups, unions, fraternal or athletic groups, or [...] Answer Date Recorded PHQ-2 Score 6 10/14/2023 [facility] Questionnaire Answer Date [...] Sex Assigned at Female 12/12/2019 6:30 PM VESSEL MANAGER Gender Identity Female 12/12/2019 6:30 PM VESSEL MANAGER Sexual Orientation Straight 04/04/2021 12 :18 PM CDT Travel History Travel Start Travel End [place] 12/06/2023 12/12/2023 documented as of this encounter Plan of Treatment Upcoming Encounters Date Type Department Care Team (Late st Contact Info) Description 03/19/2024 3:30 PM CDT Office Visit [facility] Specialty [facility] [address] [place] [address] [address] [place] [address] Elmer Paul MD [address] , [address] [place] [address] 04/16/2024 8:30 AM CDT Lab [facility] Heart [facility] [address] [place] [address] [address] [place] [phone] 04/20/2024 8:45 AM CDT Office Visit [facility] [place] [address] [facility] [address] [place] [phone] Lavern Pope MD [address] [facility] [address] [place] [address] documented as of this encounter Visit Diagnoses Not on filedocumented in this encounter Additional Health Concerns Assessment Noted Time PHQ-9 Depression Total Score: 023 12:40 PM VESSEL MANAGER documented as of this encounter Care Teams Electrical Engineering Technician Relationship Specialty Start Date End Date Carey Vuong MD [address] [place] [address] [place] [address] PCP - General 01/15/02 Mehreen Scott MD [address] [facility] 100 [place] [phone] aviation project engineer 12/15/19 Carey Vuong MD [address] [place] [address] [place] [address] Assigned PCP 02/22/21 Prema Hitchcock PA-C [address] [place] [address] Assigned Surgical Provider 11/04/21 Harriet Lindsay Personal Advocate & Liaison (PAL) 06/17/22 Aisha Murdock PA-C [facility] [address] [place] [address] Assigned Neuroscience Provider 06/08/22 11/28/23 Lavern Pope MD [address] [place] [address] Cardiovascular Disease 11/11/22 Lavern Pope MD [address] [place] [address] Assigned Heart and Vascular Provider 11/16/22 Elmer Paul MD [address], [address] [place] [phone] Allergy & Immunology 02/17/23 Elmer Paul MD [address], [address] [place], [place] [address] Assigned Allergy Provider 04/26/23 Batool Torres NP [address] [place] [address] Nurse Practitioner Pulmonary Disease 08/11/23 [place] [address] [address] [place] [address] Nurse Practitioner Nurse Practitioner 10/29/23 documented as of this encounter
--- OUTSIDE RECORDS SUMMARY | 2023-12-29 23:07 | XMS_ITS | Encounter Summary ---
Author Name Unknown Organization [place] [facility] Address [address] [place] [address] Care Team Providers Care Salvager Helper Name Role Phone Carey Vuong MD Primary Care Provider [phone] Mehreen Scott MD Unavailable [phone] Carey Vuong MD Unavailable [phone] Prema HitchcockC Unavailable Harriet Lindsay Unavailable Unavailable Aisha Murdock PAOrquideaC Unavailable Lavern Pope MD Unavailable [phone] Lavern Pope MD Unavailable [phone] Elmer Paul MD Unavailable [phone] Elmer Paul MD Unavailable [phone] Batool Torres CITY COMPTROLLER Unavailable Marlene Benoit NP Unavailable [phone] Reason for Visit * Reason Comments Medication Refill Encounter Details Date Type Department Care Team (Late st Contact Info) Description 11/06/[address] [place] [address] Carey Vuong MD [address] [facility] [address] [place], [place] [address] Medication Refill Social History Tobacco Use Types Packs/Day Years [...] week 06/17/2022 How often do you attend [facility] or restorationism services? More than 4 times per year [...] Answer Date Recorded PHQ-2 Score 6 10/14/2023 [facility] of Occupat ional Health - Occupational Stress [...] Sex Assigned at Female 12/12/2019 6:30 PM WATCH MECHANIC Gender Identity Female 12/12/2019 6:30 PM WATCH MECHANIC Sexual Orientation Straight 04/04/2021 12 :18 PM CDT Travel History Travel Start Travel End [place] 12/06/2023 12/12/2023 documented as of this encounter Plan of Treatment Upcoming Encounters Date Type Department Care Team (Late st Contact Info) Description 03/19/2024 3:30 PM CDT Office Visit [place] [id number] [place] [address] [place] [phone] Elmer Paul MD [address] [facility], [address] [place] [address] 04/16/2024 8:30 AM CDT Lab [facility] [address] [facility] [address] [place] [phone] 04/20/2024 8:45 AM CDT Office Visit [facility] [place] [address] [facility] [address] [place] [phone] Lavern Pope MD [address] [facility] [address] [place] [address] documented as of this encounter Visit Diagnoses Diagnosis Gastroesophageal reflux disease without esophagitis Esophageal reflux documented in this encounter Additional Health Concerns Assessment Noted Time PHQ-9 Depression Total Score: 22 023 12:40 PM WATCH MECHANIC documented as of this encounter Care Teams Salvager Helper Relationship Specialty Start Date End Date Carey Vuong MD [address] [facility] [place] [address] PCP - General 01/15/02 Mehreen Scott MD [address] [facility] 100 [place] [phone] novelty worker 12/15/19 Carey Vuong MD [address] [facility] [place] [address] Assigned PCP 02/22/21 Prema Hitchcock PA-C [address] [place] [address] Assigned Surgical Provider 11/04/21 Harriet Lindsay Personal Advocate & Liaison (PAL) 06/17/22 Aisha Murdock PA-C [facility] [address] [place] [address] Assigned Neuroscience Provider 06/08/22 11/28/23 Lavern Pope MD [address] [facility] [address] [place] [address] Cardiovascular Disease 11/11/22 Lavern Pope MD [address] [facility] [address] [place] [address] Assigned Heart and Vascular Provider 11/16/22 Elmer Palu MD [address], [address] [place] [address] Allergy & Immunology 02/17/23 Elmer Paul MD [address], [address] [place] [address] Assigned Allergy Provider 04/26/23 Batool Torres, CITY COMPTROLLER [address] [facility] [place] [place] [address] Nurse Practitioner Pulmonary Disease 08/11/23 [place] [address] [place] [address] Nurse Practitioner Nurse Practitioner 10/29/23 documented as of this encounter
--- OUTSIDE RECORDS SUMMARY | 2023-12-29 23:07 | XMS_ITS | Encounter Summary ---
Author Name Unknown Organization [facility] Address [address] [place] [address] Care Team Providers Care Insulation Cupola Operator Name Role Phone Carey Vuong MD Primary Care Provider Mehreen Scott MD Unavailable Carey Vuong MD Unavailable Prema HitchcockC Unavailable Harriet Lindsay Unavailable Unavailable Aisha Murdock PA-C Unavailable [phone] Lavern Pope MD Unavailable [phone] Lavern Pope MD Unavailable [phone] Elmer Paul MD Unavailable [phone] Elmer Paul MD Unavailable [phone] Batool Torres LOSS PREVENTION AND SAFETY MANAGER Unavailable Marlene Benoit NP Unavailable [phone] Reason for Visit * Reason Onset Date Comments Refill Request 11/11/2023 topiramate (TOPA MAX) 50 MG tablet Encounter Details Date Type Department Care Team (Late st Contact Info) Description 11/11/2023 Telephone [facility] [address] [place] [address] [place] [address] [address] [address] [place] [address] Refill Request (topiramate (TOPAMAX) 50 MG tablet) Social History Tobacco Use Types Packs/Day Years [...] week 06/17/2022 How often do you attend [facility] or restoration services? More than 4 times per year 06/17/2022 Do you belong to any clubs o r organizations such as sabianist groups, unions, fraternal or athletic groups, or [...] Date Recorded PHQ-2 Score 6 10/14/2023 [facility] of Occupat ional Health - Occupational Stress [...] Sex Assigned at Female 12/12/2019 6:30 PM SOFTWARE COMPUTER SPECIALIST Gender Identity Female 12/12/2019 6:30 PM SOFTWARE COMPUTER SPECIALIST Sexual Orientation Straight 04/04/2021 12 :18 PM CDT Travel History Travel Start Travel End [place] 12/06/2023 12/12/2023 documented as of this encounter Miscellaneous Notes * Telephone Encounter - Rayray Solorio - 11/11/2023 3:51 PM CST Per conversation with nursing, I contacted the pharmacy and informed them pt reported she stopped this medication. They removed the medication from her profile. Closing encounter. WARE COMPUTER SPECIALIST * Telephone Encounter - Rayray Solorio - 11/11/2023 3:23 PM CST Received fax from pharmacy requesting refill(s) for topiramate (TOPAMAX) 50 MG tablet Last refilled on 08/08/2023. Pt last seen on 11/04/2023 Next appt scheduled for NONE. NOTE: Per last OV Stopped taking Topiramate 50 mg twice a day about 2 weeks ago. Discussed with PCP, she decided that it was not helpful anymore. Does not think that being off of topiramate has madeher symptoms any worse. E-prescribe to: [id number] [address] [address] Will route to nursing for further verification. WARE COMPUTER SPECIALIST documented in this encounter Plan of Treatment Upcoming Encounters Date Type Department Care Team (Late st Contact Info) Description 03/19/2024 3:30 PM CDT Office Visit [facility] [address] [facility] 200 [place] [phone] Elmer Paul MD [address] [facility] 200 [place] [address] 04/16/2024 8:30 AM CDT Lab [facility] [address] [facility] [address] [place] [phone] 04/20/2024 8:45 AM CDT Office Visit [facility] Heart [facility] [address] [facility] [address] [place] [phone] Lavern Pope MD [address] [facility] 275 [place] [address] documented as of this encounter Visit Diagnoses Not on filedocumented in this encounter Additional Health Concerns Assessment Noted Time PHQ-9 Depression Total Score: 22 10/14/ 023 12:40 PM SOFTWARE COMPUTER SPECIALIST documented as of this encounter Care Teams Insulation Cupola Operator Relationship Specialty Start Date End Date Carey Vuong MD [address] [place] [address] [place] [address] PCP - General 01/15/02 Mehreen Scott MD [address] [facility] [facility] [address] [place], [place] [phone] cat breeder 12/15/19 Carey Vuong MD [address] [place] [address] [place] [address] Assigned PCP 02/22/21 Prema Hitchcock PA-C [address] [place] [address] Assigned Surgical Provider 11/04/21 Harriet Lindsay Personal Advocate & Liaison (PAL) 06/17/22 Aisha Murdock PA-C [facility] [address] [place] [address] Assigned Neuroscience Provider 06/08/22 11/28/23 Lavern Pope MD [address] [facility] [address] [place] [address] Cardiovascular Disease 11/11/22 Lavern Pope MD [address] [facility] [address] [place] [address] Assigned Heart and Vascular Provider 11/16/22 Elmer Paul MD [address] [place] [address] Allergy & Immunology 02/17/23 Elmer Paul MD [address], [address] [place] [id number] Assigned Allergy Provider 04/26/23 Batool Torres NP [address] [place] [address] Nurse Practitioner Pulmonary Disease 08/11/23 [place] [address] [address] [address] [place] [address] Nurse Practitioner Nurse Practitioner 10/29/23 documented as of this encounter
--- OUTSIDE RECORDS SUMMARY | 2023-12-29 23:07 | XMS_ITS | Encounter Summary ---
Author Name Unknown Organization [place] Address [address] [place] [address] Care Team Providers Care Shoe Lay Out Planner Name Role Phone Carey Vuong MD Primary Care Provider [phone] Mehreen Scott MD Unavailable [phone] Carey Vuong MD Unavailable [phone] Prema Hitchcock PA-C Unavailable [phone] Harriet Lindsay Unavailable Unavailable Aisha MurdockC Unavailable [phone] Lavern Pope MD Unavailable [phone] Lavern Pope MD Unavailable [phone] Elmer Paul MD Unavailable [phone] Elmer Paul MD Unavailable [phone] Batool Torres NP Unavailable Marlene Benoit NP Unavailable [phone] Encounter Details Date Type Department Care Team (Late st Contact Info) Description 11/14/2023 [facility] [address] [place] [address] Carey Vuong MD [address] [place] [address] Social History Tobacco Use Types Packs/Day Years [...] week 06/17/2022 How often do you attend [facility] or mormon services? More than 4 times per year 06/17/2022 Do you belong to any clubs o r organizations such as yazidi groups, unions, fraternal or athletic groups, or [...] Answer Date Recorded PHQ-2 Score 6 10/14/2023 [facility] ional [facility] - [...] Sex Assigned at Female 12/12/2019 6:30 PM BELLPERSON Gender Identity Female 12/12/2019 6:30 PM BELLPERSON Sexual Orientation Straight 04/04/2021 12 :18 PM CDT Travel History Travel Start Travel End [place] 12/06/2023 12/12/2023 documented as of this encounter Miscellaneous Notes * Telephone Encounter - Karina Schneider - 11/14/2023 11:35 AM CST Spoke w/ pt and scheduled. Karina Sogabe on 11/14/2023 at 11:36 AM PERSON documented in this encounter Plan of Treatment Upcoming Encounters Date Type Department Care Team (Late st Contact Info) Description 03/19/2024 3:30 PM CDT Office Visit [facility] [address] [facility] [address] [place] [address] Elmer Paul MD [address] [facility] [address] [place] [address] 04/16/2024 8:30 AM CDT Lab [facility] [address] [facility] [address] [place] [phone] 04/20/2024 8:45 AM CDT Office Visit [facility] [address] [facility] [address] [place] [address] Lavern Pope MD [address] [facility] [address] [place] [address] documented as of this encounter Visit Diagnoses Not on filedocumented in this encounter Additional Health Concerns Assessment Noted Time PHQ-9 Depression Total Score: 22 023 12:40 PM BELLPERSON documented as of this encounter Care Teams Shoe Lay Out Planner Relationship Specialty Start Date End Date Carey Vuong MD [address] [place] [address] [place] [address] PCP - General 01/15/02 Mehreen Scott MD [address] [place] [phone] mop man 12/15/19 Carey Vuong MD [address] [place] [address] [place] [address] Assigned PCP 02/22/21 Prema Hitchcock PA-C [address] [place], [place] [address] Assigned Surgical Provider 11/04/21 Harriet Lindsay Personal Advocate & Liaison (PAL) 06/17/22 Aisha Murdock PA-C [facility] [address] [place] [address] Assigned Neuroscience Provider 06/08/22 11/28/23 Lavern Pope MD [address] [facility] [address] [place], [place] [address] Cardiovascular Disease 11/11/22 Lavern Pope MD [address] [facility] [address] [place], [place] [address] Assigned Heart and Vascular Provider 11/16/22 Elmer Paul MD [address], [address] [place], [place] [address] Allergy & Immunology 02/17/23 Elmer Paul MD [address] [place], [place] [address] Assigned Allergy Provider 04/26/23 Batool Torres NP [address] [facility] [place] [address] Nurse Practitioner Pulmonary Disease 08/11/23 [place] [address] [address] [address] Nurse Practitioner Nurse Practitioner 10/29/23 documented as of this encounter
--- OUTSIDE RECORDS SUMMARY | 2023-12-29 23:07 | XMS_ITS | Encounter Summary ---
Author Name Unknown Organization [facility] Address [address] [place] [address] Care Team Providers Care Cable Tool Driller Name Role Phone Carey Vuong MD Primary Care Provider [phone] Mehreen Scott MD Unavailable Carey Vuong MD Unavailable Prema Hitchcock PA-C Unavailable Harriet Lindsay Unavailable Unavailable Aisha Murdock PA-C Unavailable [phone] Lavern Pope MD Unavailable Lavern Pope MD Unavailable Elmer Paul MD Unavailable [phone] Elmer Paul MD Unavailable [phone] Batool Torres NP Unavailable [phone] Marlene Benoit NP Unavailable Batool Torres NP Unavailable [phone] Encounter Details Date Type Department Care Team (Late st Contact Info) Description 11/05/2023 [facility] [address] [place] [address] [address] [place] [address] Karina Schneider Social History Tobacco Use Types Packs/Day Years [...] you attend [facility] or nondenominational services? More than 4 times per year [...] Answer Date Recorded PHQ-2 Score 6 10/14/2023 [facility] Occupat ional Health - Occupational Stress [...] Sex Assigned at Female 12/12/2019 6:30 PM SUPERVISOR PARTICLEBOARD Gender Identity Female 12/12/2019 6:30 PM SUPERVISOR PARTICLEBOARD Sexual Orientation Straight 04/04/2021 12 :18 PM CDT Travel History Travel Start Travel End [place] 12/06/2023 12/12/2023 documented as of this encounter Plan of Treatment Upcoming Encounters Date Type Department Care Team (Late st Contact Info) Description 03/19/2024 3:30 PM CDT Office Visit [facility] [address] [place] [address] [address] [place] [address] Elmer Paul MD [address] , [address] [place] [address] 04/16/2024 8:30 AM CDT Lab [facility] [address] [facility] [address] [place] [phone] 04/20/2024 8:45 AM CDT Office Visit [facility] [address] [facility] [address] [place] [phone] Lavern Pope MD [address] [facility] [address] [place] [phone] documented as of this encounter Visit Diagnoses Not on filedocumented in this encounter Additional Health Concerns Assessment Noted Time PHQ-9 Depression Total Score: 22 023 12:40 PM SUPERVISOR PARTICLEBOARD documented as of this encounter Care Teams Cable Tool Driller Relationship Specialty Start Date End Date Carey Vuong MD [address] [place] [address] [place] [address] PCP - General 01/15/02 Mehreen Scott MD [address] [facility] [address] [place] [phone] dust mop maker 12/15/19 Carey Vuong MD [address] [place] [address] [place] [address] Assigned PCP 02/22/21 Prema Hitchcock PA-C [address] [place] [address] Assigned Surgical Provider 11/04/21 Harriet Lindsay Personal Advocate & Liaison (PAL) 06/17/22 Aisha Murdock PA-C [facility] [address] [place] [address] Assigned Neuroscience Provider 06/08/22 11/28/23 Lavern Pope MD [address] [place] [address] Cardiovascular Disease 11/11/22 Lavern Pope MD [address] [place] [address] Assigned Heart and Vascular Provider 11/16/22 Elmer Paul MD [address] [place] [address] Allergy & Immunology 02/17/23 Elmer Paul MD [address] [place] [address] Assigned Allergy Provider 04/26/23 Batool Torres NP [address] [place] [address] Nurse Practitioner Pulmonary Disease 08/11/23 [place] [address] [place] [address] Nurse Practitioner Nurse Practitioner 10/29/23 Batool Torres NP [address] [place] [address] Assigned Pulmonology Provider 12/25/23 documented as of this encounter
--- OUTSIDE RECORDS SUMMARY | 2023-12-29 23:07 | XMS_ITS | Encounter Summary ---
Author Name Unknown Organization [facility] Address [address] [place] [address] Care Team Providers Care Rolled Seat Trimmer Name Role Phone Carey Vuong MD Primary Care Provider [phone] Mehreen Scott MD Unavailable [phone] Carey Vuong MD Unavailable [phone] Prema HitchcockC Unavailable [phone] Harriet Lindsay Unavailable Unavailable Aisha MurdockC Unavailable [phone] Lavern Pope MD Unavailable [phone] Lavern Pope MD Unavailable [phone] Elmer Paul MD Unavailable [phone] Elmer Paul MD Unavailable [phone] Batool Torres NP Unavailable [phone] Marlene Benoit NP Unavailable [phone] Reason for Referral * Clinically Administered Medications (Routine) - Closed Specialty Diagnoses / Procedures Referred By Contac t Referred To Contact Pain & Palliative Care Diagnoses UNKNOWN [place] [address] [place] [address] Pain Management [facility] [address] [place] [address] Referral ID Status Reason Start Date Expiration Date Visits Re quested Visits Authorized [id number] Closed 11/14/2023 11/13/2024 1 1 LINE REPAIRER Reason for Visit * Reason Comments Pain * Consultation (Routine) - Pending Review Specialty Diagnoses / Procedures Referred By Contdhara t Referred To Contact Diagnoses Cervical radiculopathy Spondylosis of cervical region without myelopathy [place] [address] [place] [address] Referral ID Status Reason Start Date Expiration Date V isits Requested Visits Authorized [id number] Pending Review 11/04/2023 11/03/2024 1 1 Encounter Details Date Type Department Care Team (Latest Contact Info) Description 11/14/2023 1:15 PM PIPE LINE REPAIRER Radiology Injection Office Visit [facility] [place] [address] [place] [address] [place] [address] [place] [address] [place] [address] [place] [address] Cervical radiculopathy (Primary Dx) Social History Tobacco Use Types Packs/Day Years [...] How often do you attend chur or caodaism services? More than 4 times per year 06/17/2022 Do you belong to any clubs o r organizations such as religious groups, unions, fraternal or athletic groups, or [...] Answer Date Recorded PHQ-2 Score 6 10/14/2023 [facility] - Occupational Stress Questionnaire Answer [...] Sex Assigned at Female 12/12/2019 6:30 PM PIPE LINE REPAIRER Gender Identity Female 12/12/2019 6:30 PM PIPE LINE REPAIRER Sexual Orientation Straight 04/04/2021 12 :18 PM CDT Travel History Travel Start Travel End [place] 12/06/2023 12/12/2023 documented as of this encounter Last Filed Vital Signs Vital Sign Reading Time Taken Comments Blood Pressure 123/85 11/14/2023 1:26 PM PIPE LINE REPAIRER Pulse 75 11/14/2023 1:26 PM PIPE LINE REPAIRER Temperature - - Respiratory Rate - - Oxygen Saturation 98% 11/14/2023 1:26 PM PIPE LINE REPAIRER Inhaled Oxygen Concentration - - Weight - - Height - - Body Mass Index - - documented in this encounter Patient Instructions * Patient Instructions* Mary Hong RN - 11/14/2023 1:15 PM PIPE LINE REPAIRER [facility] Procedure Discharge Instructions Today you saw: Dr. Eden Linn Your procedure: Epidural steroid injection Medications used: Lidocaine (anesthetic), Dexamethasone (steroid) Omnipaque (contrast) Be cautious when walking as numbness and/or weakness in the legs may occur up to 6-8 hours after the procedure due to effect of the local anesthetic Do not drive for 6 hours. The effect of the local anesthetic could slow your reflexes. Avoid strenuous activity for the first 24 hours. You may resume your regular activities after that. You may shower, however avoid swimming, tub baths or hot tubs for 24 hours following your procedure You may have a mild to moderate increase in pain for several days following the injection. You may use ice packs for 10-15 minutes, 3 to 4 times a day at the injection site for comfort Do not use heat to painful areas for 6 to 8 hours. This will give the local anesthetic time to wearoff and prevent you from accidentally burning your skin. Unless you have been directed to avoid the use of anti-inflammatory medications (NSAIDS-ibuprofen, Aleve, Motrin), you may use these medications or Tylenol for pain control if needed. With diabetes, check your blood sugar more frequently than usual as your blood sugar may be higher than normal for 10-14 days following a steroid injection. Contact your doctor who manages your diabetes if your blood sugar is higher than usual Possible side effects of steroids that you may experience include flushing, elevated blood pressure, increased appetite, mild headaches and restlessness. All of these symptoms will get better with time. It may take up to 14 days for the steroid medication to start working although you may feel the effect as early as a few days after the procedure. Follow up with your referring provider in 2-3 weeks If you experience any of the following, call the pain center line during work hours at [phone] on-call physician after hours at [phone]: -Fever over 100 degree F -Swelling, bleeding, redness, drainage, warmth at the injection site -Progressive weakness or numbness in your legs or arms -Loss of bowel or bladder function -Unusual headache that is not relieved by Tylenol or your regular headache medication -Unusual new onset of pain that is not improving LINE REPAIRER documented in this encounter Progress Notes * Eden Linn MD - 11/14/2023 1:15 PM CST Images from the original note were not included. [facility] - Procedure Note Date of Visit: 11/14/2023 Procedure performed: C7-T1 interlaminar epidural steroid injection with fluoroscopic guidance Diagnosis: Cervical spondylosis; Cervical radiculitis/radiculopathy Herd Tester: Eden Linn MD Anesthesia: none Indications: Danielle Garza is a 48 year old female who is seen at the request of Marlene Benoit CNP for cervical epidural steroid injection. The patient describes neck pain with radiation into the left arm and headaches. The patient has been exhibiting symptoms consistent with cervical intraspinal inflammation and radiculopathy. Symptoms have been persistent, disabling, and intermittentlysevere. The patient reports minimal improvement with conservative treatment, including previous injections, PT and medications. This is a repeat injection. Previous KELLY done by myself on 07/16/2023 & 01/13/2023 provided goodpain relief for a period of 3 months. S/P lumbar L4-5 ILESI 05/30/2023 Cervical MRI was done on 09/13/2022 which showed IMPRESSION: 1. Multilevel degenerative changes of the cervical spine, as described. 2. Mild spinal canal stenosis at C6-C7. Otherwise, no significant spinal canal narrowing. 3. Multilevel neural foraminal stenosis, greatest on the right at C4-C5 and C5-C6. Please see the body of the report for details. Allergies: Allergies Allergen Reactions Penicillins Itching Vitals: BP 133/72 (BP Location: Left arm, Cuff Size: Adult Regular) Pulse 67 LMP (LMP Unknown) SpO2 98% Review of Systems: The patient denies recent fever, chills, illness, use of antibiotics or anticoagulants. All other 10-point review of systems negative. Procedure: The procedure and risks were explained, and informed written consent was obtained from the patient. Risks include but are not limited to: infection, bleeding, increased pain, and damage tosoft tissue, nerve, muscle, and vasculature structures. After getting informed consent, patient wasbrought into the procedure suite and was placed in a prone position on the procedure table. A Pausefor the Cause was performed. Patient was prepped and draped in sterile fashion. The C7-T1 interspace was identified with use of fluoroscopy in AP view. A 25- gauge, 1.5 inch needlewas used to anesthetize the skin and subcutaneous [...] 2 ml of 10mg/ml of dexamethasone and 1ml of preservative free 1% lidocaine was injected. The needle was removed. Images were saved to PACS. The patient tolerated the procedure well, and there was no evidence of procedural complications. Nonew sensory or motor deficits were noted following [...] post-procedure evaluation. EDEN LINN MD Pain Management LINE REPAIRER documented in this encounter Nursing Notes * Rayray Solorio - 11/14/2023 1:15 PM CST Pre-procedure Intake If YES to any questions or NO to having a train driver Please complete laminated checklist and leave on the computer keyboard for Provider, verbally inform provider if able. For SCS Trial, RFA's or any sedation procedure: Have you been fasting? NA If yes, for how long? NA Are you taking any any blood thinners such as Coumadin, Warfarin, Jantoven, Pradaxa Xarelto, Eliquis, Edoxaban, Enoxaparin, Lovenox, Heparin, Arixtra, Fondaparinux, or Fragmin? OR Antiplatelet medication such as Plavix, Brilinta, or Effient? N/A If yes, when did you take your last dose? NA Do you take aspirin? NO If cervical procedure, have you held aspirin for 6 days? NA Do you have any allergies to contrast dye, iodine, steroid and/or numbing medications? NO Are you currently taking antibiotics or have an active infection? NO Have you had a fever/elevated temperature within the past week? NO Are you currently taking oral steroids? NO Do you have a train driver? Yes Are you or ? No Have you received any vaccines in the past 2 weeks? NO Notify provider and RNs if systolic BP >170, diastolic BP >100, P >100 or O2 sats < 90% LINE REPAIRER * Emily Gordon RN - 11/14/2023 1:15 PM CST Discharge Information Discharge Criteria = When patient returns to baseline or as per MD order Consciousness: Pt is fully awake Circulation: BP +/- 20% of pre-procedure level Respiration: Patient is able to breathe deeply O2 Sat: Patient is able to maintain O2 Sat >92% on room air Activity: Moves 4 extremities on command Ambulation: Patient is able to stand and walk or stand and pivot into wheelchair Notes: Discharge instructions and AVS given to patient Patient meets criteria for discharge? YES Admitted to PCU? No Responsible adult present to accompany patient home? Yes Signature/Title: EMILY GORDON RN RN Receptionist Secretary [facility] LINE REPAIRER documented in this encounter Plan of Treatment Upcoming Encounters Date Type Department Care Team (Late st Contact Info) Description 03/19/2024 3:30 PM CDT Office Visit [address] [place] [phone] Elmer Paul MD [address] [facility] [address] [place], [place] [address] 04/16/2024 8:[address] [facility] [address] [facility] [address] [place] [phone] 04/20/2024 8:45 AM CDT Office Visit [facility] [place] [address] [facility] [address] [place] [phone] Lavren Pope MD [address] [facility] [address] [place] [address] documented as of this encounter Procedures Procedure Name Priority Date/Time Associated Diagnosis Comments PAIN INTERLAMINAR EPIDURAL STRD INJ CERVICAL Routine 11/14/2023 1:36 PM PIPE LINE REPAIRER Cervical radiculopathy documented in this encounter Results * PAIN Translaminar Epidural Steroid Injection Cervical (11/14/2023 1:36 PM PIPE LINE REPAIRER) Anatomical Region Laterality Modality PAIN/SPINE Radio Fluoroscop y Narrative 11/14/2023 2:19 PM PIPE LINE REPAIRER Table formatting from the original result was not included. Images from the original result were not included. [facility] - Procedure Note Date of Visit: 11/14/2023 Procedure performed: C7-T1 interlaminar epidural steroid injection with fluoroscopic guidance Diagnosis: Cervical spondylosis; Cervical radiculitis/radiculopathy Herd Tester: Eden Linn MD Anesthesia: none Indications: Danielle [...] LINN MD Pain Management Eden Linn MD G PAIN MANAGEMENT ORDERABLES documented in this encounter Visit Diagnoses Diagnosis Cervical radiculopathy- Primary Brachial neuritis or radiculitis nos documented in this encounter Administered Medications Inactive Administered Medications - up to 3 most recent administrations Medication Order MAR Action Action Date Dose Rate Site dexAMETHasone PF (DECADRON) injection 10 mg 10 mg, EPIDURAL, ONCE, Administer over 1 Minutes, On Fri11/14/23 at 1330, For 1 dose, Cervical OLIVIA $Given 11/14/2023 1:39 PM PIPE LINE REPAIRER 10 mg dexAMETHasone PF (DECADRON) injection 10 mg 10 mg, EPIDURAL, ONCE, Administer over 1 Minutes, On Fri11/14/23 at 1330, For 1 dose, Cervical OLIVIA $Given 11/14/2023 1:39 PM PIPE LINE REPAIRER 10 mg iohexol (OMNIPAQUE) 300 mg/mL injection 10 mL 10 mL, EPIDURAL, ONCE, On Fri11/14/23 at 1330, For 1 dose $Given by Other 11/14/2023 1:38 PM PIPE LINE REPAIRER 1 mL documented in this encounter Additional Health Concerns Assessment Noted Time PHQ-9 Depression Total Score: 22 10/14/2 023 12:40 PM PIPE LINE REPAIRER documented as of this encounter Care Teams Rolled Seat Trimmer Relationship Specialty Start Date End Date Carey Vuong MD [address] [facility] [place] [address] PCP - General 01/15/02 Mehreen Scott MD [address] [place] [phone] president and chief commercial officer 12/15/19 Carey Vuong MD [address] [facility] [place] [address] Assigned PCP 02/22/21 Prema Hitchcock PA-C [address] [place] [address] Assigned Surgical Provider 11/04/21 Harriet Lindsay Personal Advocate & Liaison (PAL) 06/17/22 Aisha Murdock PA-C [facility] [address] [place] [address] Assigned Neuroscience Provider 06/08/22 11/28/23 Lavern Pope MD [address] [facility] [address] [place], [place] [address] Cardiovascular Disease 11/11/22 Lavern Pope MD [address] [facility] [address] [place], [place] [address] Assigned Heart and Vascular Provider 11/16/22 Elmer Paul MD [address] [place] [address] Allergy & Immunology 02/17/23 Elmer Paul MD [address] [place] [address] Assigned Allergy Provider 04/26/23 Batool Torres NP [address] [facility] [place] [address] Nurse Practitioner Pulmonary Disease 08/11/23 [place] [address] [place] [address] Nurse Practitioner Nurse Practitioner 10/29/23 documented as of this encounter
--- OUTSIDE RECORDS SUMMARY | 2023-12-29 23:07 | XMS_ITS | Encounter Summary ---
Author Name Unknown Organization [place] Address [address] [place] [address] Care Team Providers Care Bullet Swaging Machine Adjuster Name Role Phone Carey Vuong MD Primary Care Provider [phone] Mehreen Scott MD Unavailable [phone] Carey Vuong MD Unavailable [phone] Prema Hitchcock PA-C Unavailable Harriet Lindsay Unavailable Unavailable Aisha MurdockC Unavailable Lavern Pope MD Unavailable [phone] Lavern Pope MD Unavailable [phone] Elmer Paul MD Unavailable [phone] Elmer Paul MD Unavailable [phone] Batool Torres NP Unavailable Marlene Benoit NP Unavailable [phone] Encounter Details Date Type Department Care Team (Latest Contact Info) Description 11/14/2023 Travel Social History Tobacco Use Types Packs/Day [...] How often do you attend [facility] or advent services? More than 4 times per year [...] Answer Date Recorded PHQ-2 Score 6 10/14/2023 [facility] - Occupational Stress Questionnaire Answer Date [...] Sex Assigned at Female 12/12/2019 6:30 PM ELECTRONIC REPAIR TROUBLESHOOTER Gender Identity Female 12/12/2019 6:30 PM ELECTRONIC REPAIR TROUBLESHOOTER Sexual Orientation Straight 04/04/2021 12 :18 PM CDT Travel History Travel Start Travel End [place] 12/06/2023 12/12/2023 documented as of this encounter Plan of Treatment Upcoming Encounters Date Type Department Care Team (Late st Contact Info) Description 03/19/2024 3:30 PM CDT Office Visit [facility] Specialty [facility] [address] [place] [address] [address] [place] [address] Elmer Paul MD [address] , [address] [place] [address] 04/16/2024 8:30 AM CDT Lab [facility] Heart [facility] [address] [place] [address] [address] [place] [phone] 04/20/2024 8:45 AM CDT Office Visit [facility] [place] [address] [place] [phone] Lavern Pope MD [address] [facility] [address] [place] [id number] documented as of this encounter Visit Diagnoses Not on filedocumented in this encounter Additional Health Concerns Assessment Noted Time PHQ-9 Depression Total Score: 023 12:40 PM ELECTRONIC REPAIR TROUBLESHOOTER documented as of this encounter Care Teams Bullet Swaging Machine Adjuster Relationship Specialty Start Date End Date Carey Vuong MD [address] [place] [address] [place] [address] PCP - General 01/15/02 Mehreen Scott MD [address] [facility] [address] [place] [phone] bung dropper 12/15/19 Carey Vuong MD [address] [place] [address] [place] [address] Assigned PCP 02/22/21 Prema Hitchcock PA-C [address] [place] [address] Assigned Surgical Provider 11/04/21 Harriet Lindsay Personal Advocate & Liaison (PAL) 06/17/22 Aisha Murdock PA-C [facility] [address] [place] [address] Assigned Neuroscience Provider 06/08/22 11/28/23 Lavern Pope MD [address] [place] [address] Cardiovascular Disease 11/11/22 Lavern Pope MD [address] [place] [address] Assigned Heart and Vascular Provider 11/16/22 Elmer Paul MD [address] [place] [address] Allergy & Immunology 02/17/23 Elmer Paul MD [address] [place], [place] [address] Assigned Allergy Provider 04/26/23 Batool Torres NP [address] [place] [address] Nurse Practitioner Pulmonary Disease 08/11/23 [place] [address] [place] [address] Nurse Practitioner Nurse Practitioner 10/29/23 documented as of this encounter
--- OUTSIDE RECORDS SUMMARY | 2023-12-29 23:07 | XMS_ITS | Encounter Summary ---
Author Name Unknown Organization [place] Address [address] [place] [address] Care Team Providers Care Case Management Associate Name Role Phone Carey Vuong MD Primary Care Provider [phone] Mehreen Scott MD Unavailable [phone] Carey Vuong MD Unavailable [phone] Prema HitchcockC Unavailable Harriet Lindsay Unavailable Unavailable Aisha Murdock PAOrquideaC Unavailable [phone] Lavern Pope MD Unavailable [phone] Lavern Pope MD Unavailable [phone] Elmer Paul MD Unavailable [phone] Elmer Paul MD Unavailable [phone] Batool Torres NP Unavailable [phone] Marlene Benoit NP Unavailable [phone] Reason for Visit * Reason Onset Date Comments Procedure 11/05/2023 C7-T1 ILESI Encounter Details Date Type Department Care Team (Late st Contact Info) Description 11/05/2023 [facility] Pain Management [address] [place] [address] [place] [address] Pain Management Program, [facility] Procedure (C7-T1 ILESI ) Social History Tobacco Use Types Packs/Day [...] 06/17/2022 How often do you attend [facility] or adventist services? More than 4 times per year [...] Answer Date Recorded PHQ-2 Score 6 10/14/2023 [facility] - Occupational [...] Sex Assigned at Female 12/12/2019 6:30 PM DIGITAL CIRCUIT DESIGNER Gender Identity Female 12/12/2019 6:30 PM DIGITAL CIRCUIT DESIGNER Sexual Orientation Straight 04/04/2021 12 :18 PM CDT Travel History Travel Start Travel End [place] 12/06/2023 12/12/2023 documented as of this encounter Miscellaneous Notes * Telephone Encounter - Karyn Waller - 11/05/2023 11:08 AM CST Screening Questions for Radiology Injections: Injection to be done at which interventional clinic site? [facility] If choosing [facility] for location, please inform patient: [facility] is a Hospital based clinic. Before your visit, you should check with your insurance about how it covers the charges for facility services in a hospital-based clinic.?? Procedure ordered by Marlene Brown Procedure ordered? C7-T1 ILESI ??? Transforaminal Cervical OLIVIA - Send to [facility] - No [facility] Site providers perform this procedure What insurance would patient like us to bill for this procedure? [facility] ?? IF SCHEDULING IN [place] [facility] PLEASE SCHEDULE AT LEAST 7-10 BUSINESS DAYS OUT SO A PACAN BE OBTAINED ?? Worker's comp or MVA (motor vehicle accident) -Any injection DO NOT SCHEDULE and route to Lady Ackerman. ?? [employer] insurance - For SI joint injections, DO NOT SCHEDULE and route to Mary Monroe. ?? ALL BCBS, Hum[employer] and [employer] CIGNA - DO NOT SCHEDULE and route to Mary Monroe ?? MEDICA- facet joint injections, route to Mary Monroe Is patient scheduled at [facility]? NO If YES, route every encounter to [facility] CARE NAVIGATION POOL [[phone]] Is an sport psychologist needed? No Patient has a marine engine driver home? (Review Grid) YES: Informed Any chance of ? NO If YES, do NOT schedule and route to pool lifeguard - Dr. Price route to Michelle Shepherd and PM&R Nurse [[id number]] Is patient actively being treated for cancer or immunocompromised? No If YES, do NOT schedule and route to pool lifeguard/ Dr. Price's Team Does the patient have a bleeding or clotting disorder? No ?? If YES, okay to schedule AND route to RN nurse / Dr. Price's Team ?? (For any patients with platelet count <100, RN must forward to provider) Is patient taking any Blood Thinners OR Antiplatelet medication? No If hold needed, do NOT schedule, route to pool lifeguard/ Dr. Price's Team ??? Examples: o Blood Thinners: (Coumadin, Warfarin, Jantoven, Pradaxa, Xarelto, Eliquis, Edoxaban, Enoxaparin, Lovenox, Heparin, Arixtra, Fondaparinux or Fragmin) o Antiplatelet Medications: (Plavix, Brilinta or Effient) Is patient taking any aspirin products (includes Excedrin and Fiorinal)? No ?? If more than 325mg/day, OK to schedule; Instruct Pt to decrease to less than 325 mg for 7 days AND route to [facility]/ Dr. Price's Team ?? For CERVICAL procedures, hold all aspirin products for 6 days. ?? Tell Pt that if aspirin product is not held for 6 days, the procedure WILL BE cancelled. Any allergies to contrast dye, iodine, shellfish, or numbing and steroid medications? No ??? If YES, schedule and add allergy information to appointment notes AND route to the [facility]/ 's Team ??? If OLIVIA and Contrast Dye / Iodine Allergy? DO NOT SCHEDULE, route to [facility]/ Dr. Bryants Team ??? Allergies: Penicillins Does patient have an active infection or treated for one within the past week? No ??? Is patient currently taking any antibiotics or steroid medications? No ?? For patients on chronic, preventative, or prophylactic antibiotics, procedures may be scheduled. ?? For patients on antibiotics for active or recent infection, schedule 4 days after completed. ?? For patients on steroid medications, schedule 4 days after completed. Has the patient had a flu shot or any other vaccinations within the past 7 days? No If yes, explain that for the vaccine to work best they need to: ??? wait 1 week before and 1 week after getting any Vaccine ??? wait 1 week before and 2 weeks after getting any Covid Vaccine ??? If patient has concerns about the timing, send to [facility]/ Dr. Price's Team Does patient have an MRI/CT? YES: 09/13/22 Include Date and Check Procedure Scheduling Grid to see if required. ?? Was the MRI/CT done within the last 3 years? Yes ?? If no route to [facility]/ Dr. Bryants Team ?? If yes, where was the MRI/CT done? [facility] ?? Refer to PACS Transmissions list for approved external locations and route to [facility]/ Dr. Prcie's Team ?? If MRI was not done at approved external location do NOT schedule and route to [facility]/ Dr. Bryants Team ?? If patient has an imaging disc, the injection MAY be scheduled but patient must bring disc to appt or appt will be cancelled. Is patient able to transfer to a procedure table with minimal or no assistance? Yes ??? If no, do NOT schedule and route to [facility]/ Dr. Price's Team Procedure Specific Instructions: ??? If celiac plexus block, informed patient NPO for 6 hours and that it is okay to take medications with sips of water, especially blood pressure medications Not Applicable ??? If this is for a cervical procedure, informed patient that aspirin needs to be held for 6 days.Not Applicable ??? Sedation, If Sedation is ordered for any procedure, patient must be NPO for 6 hours prior to procedure Not Applicable ??? If IV needed: ?? Do not schedule procedures requiring IV placement in the first appointment of the day or first appointment after lunch. Do NOT schedule at 0745, 0815 or 1245. ?? Instructed patient to arrive 30 minutes early for IV start if required. (Check Procedure Scheduling Grid) Not Applicable Reminders: ??? If you are started on any steroids or antibiotics between now and your appointment, you must contact us because the procedure may need to be cancelled. Yes ??? As a reminder, receiving steroids can decrease your body's ability to fight infection. Would you still like to move forward with scheduling the injection? Yes ??? IV Sedation is not provided for procedures. If oral anti-anxiety medication is needed, the patient should request this from their referring provider. ??? Instruct patient to arrive as directed prior to the scheduled appointment time: If IV needed 30 minutes before appointment time ?? For patients 85 or older we recommend having an adult stay w/ them for the remainder of the day. ?? If the patient is Diabetic, remind them to bring their glucometer. Does the patient have any questions? NO Karyn Waller [facility] TAL CIRCUIT DESIGNER * Addendum Note - Yazmin Mendez RN - 11/05/2023 11:08 AM DIGITAL CIRCUIT DESIGNER Addended by: YAZMIN MENDEZ on: 11/06/2023 10:41 AM Modules accepted: Orders TAL CIRCUIT DESIGNER documented in this encounter Plan of Treatment Upcoming Encounters Date Type Department Care Team (Late st Contact Info) Description 03/19/2024 3:30 PM CDT Office Visit [facility] [address] [place] [phone] Elmer Paul MD [address] [facility] [address] [place] [address] 04/16/2024 8:30 AM CDT Lab [facility] [address] [facility] [address] [place] [phone] 04/20/2024 8:45 AM CDT Office Visit [facility] [address] [place] [phone] Lavern Pope MD [address] [facility] [address] [place] [id number] documented as of this encounter Visit Diagnoses Diagnosis Cervical radiculopathy- Primary Brachial neuritis or radiculitis nos documented in this encounter Additional Health Concerns Assessment Noted Time PHQ-9 Depression Total Score: 22 10/14/ 023 12:40 PM DIGITAL CIRCUIT DESIGNER documented as of this encounter Care Teams Case Management Associate Relationship Specialty Start Date End Date Carey Vuong MD [address] [place] [address] [place] [address] PCP - General 01/15/02 Mehreen Scott MD [address] [facility] [address] [place] [phone] registrar museum 12/15/19 Carey Vuong MD [address] [place] [address] [place] [address] Assigned PCP 02/22/21 Prema Hitchcock PA-C [address] [facility] [place] [address] Assigned Surgical Provider 11/04/21 Harriet Lindsay Personal Advocate & Liaison (PAL) 06/17/22 Aisha Murdock PA-C [facility] [address] [place] [address] Assigned Neuroscience Provider 06/08/22 11/28/23 Lavern Pope MD [address] [place] [id number] Cardiovascular Disease 11/11/22 Lavern Pope MD [address] [facility] [address] [place] [id number] Assigned Heart and Vascular Provider 11/16/22 Elmer Paul MD [address], [address] [place] [address] Allergy & Immunology 02/17/23 Elmer Paul MD [address] [place] [address] Assigned Allergy Provider 04/26/23 Batool Torres NP [address] [facility] [place] [address] Nurse Practitioner Pulmonary Disease 08/11/23 [place] [address] [address] [place] [address] Nurse Practitioner Nurse Practitioner 10/29/23 documented as of this encounter
--- OUTSIDE RECORDS SUMMARY | 2023-12-29 23:07 | XMS_ITS | Encounter Summary ---
Author Name Unknown Organization [place] Address [address] [place] [address] Care Team Providers Care Vault Mechanic Name Role Phone Carey Vuong MD Primary Care Provider [phone] Mehreen Scott MD Unavailable [phone] Carey Vuong MD Unavailable [phone] Prema Hitchcock PAOrquideaC Unavailable [phone] Harriet Lindsay Unavailable Unavailable Aisha Murdock PA-C Unavailable [phone] Lavern Pope MD Unavailable [phone] Lavern Pope MD Unavailable [phone] Elmer Paul MD Unavailable [phone] Elmer Paul MD Unavailable [phone] Batool Torres CHILDREN[facility]S AUTHOR Unavailable [phone] Marlene Benoit NP Unavailable [phone] Reason for Visit * Reason Comments RECHECK Encounter Details Date Type Department Care Team (Latest Contact Info) Description 11/05/2023 8:20 AM PROPERTY ADJUSTER Virtual Visit [address] [place] [phone] Carey Vuong MD [address] [facility] [place] [address] Class 2 obesity due to excess calories without serious comorbidity with body mass index (BMI) of 35.0 to 35.9 in adult (Primary Dx); Alternating constipation and diarrhea; Abdominal cramping; Cervical radiculopathy Social History Tobacco Use Types Packs/Day Years [...] week 06/17/2022 How often do you attend [facility] or buddhist services? More than 4 times per year 06/17/2022 Do you belong to any clubs o r organizations such as sikhism groups, unions, fraternal or athletic groups, or [...] Answer Date Recorded PHQ-2 Score 6 10/14/2023 [facility] Occupat ional Health [...] Sex Assigned at Female 12/12/2019 6:30 PM PROPERTY ADJUSTER Gender Identity Female 12/12/2019 6:30 PM PROPERTY ADJUSTER Sexual Orientation Straight 04/04/2021 12 :18 PM CDT Travel History Travel Start Travel End [place] 12/06/2023 12/12/2023 documented as of this encounter Patient Instructions * Patient Instructions* Carey Vuong MD - 11/05/2023 8:20 AM PROPERTY ADJUSTER Let's meet around 3 months after starting Wegovy, whenever you can get it. Cut naltrexone in half and take 1/2 twice daily. ERTY ADJUSTER documented in this encounter Progress Notes * Carey Vuong MD - 11/05/2023 8:20 AM CST Danielle is a 48 year old who is being evaluated via a billable video visit. How would you like to obtain your AVS? MyChart If the video visit is dropped, the invitation should be resent by: Text to cell phone: [phone] Will anyone else be joining your video visit? No Assessment & Plan Class 2 obesity due to excess calories without serious comorbidity with body mass index (BMI) of 35.0 to 35.9 in adult Still unable to get Wegovy. Is on wait list at pharmacy. Currently taking 50 mg naltrexone in AM. Plan switch to 25 mg bid given more food cravings in evening. Alternating constipation and diarrhea Has an upcoming appointment with gastroenterology. Levsin slightly helpful, doesn't take often, same with zofran. Discussed how both of these could worsen constipation if used frequently. Linzess nothelpful. Abdominal cramping Levsin prn as above. Cervical radiculopathy Reviewed note from Marlene Beniot. Planning steroid injection C7-T1 soon. 38 minutes spent by me on the date of the encounter doing chart review, history and exam, documentation and further activities per the note See Patient Instructions Carey Vuong MD [facility] T[facility] Santos is a 48 year old, presenting for the following health issues: RECHECK 11/05/2023 8:11 AM Additional Questions Roomed by JASMINA Atwood Accompanied by n/a 11/05/2023 8:11 AM Patient Reported Additional Medications Patient reports taking the following new medications n/a CONCERNS: Refill Wegovy History of Present Illness Getting scheduled for ILESI C7-T1. Headaches she also thinks are coming from the back of her neck and coming up over the top of her head. Off topiramate for 2-3 weeks. GI symptoms not improved. Waiting for injection to see if headaches improve. May need to restart. Takes zofran once every few weeks. Levsin helps a little. Discussed potential for worsening constipation. Taking naltrexone 50 mg in AM. Feels in evening she has more cravings and like it isn't working. Review of Systems Constitutional, HEENT, cardiovascular, pulmonary, gi and gu systems are negative, except as otherwise noted. Objective Vitals: No vitals were obtained today due to virtual visit. Physical Exam GENERAL: Healthy, alert and no distress EYES: Eyes grossly normal to inspection. No discharge or erythema, or obvious scleral/conjunctival abnormalities. RESP: No audible wheeze, cough, or visible cyanosis. No visible retractions or increased work of breathing. SKIN: Visible skin clear. No significant rash, abnormal pigmentation or lesions. NEURO: Cranial nerves grossly intact. Mentation and speech appropriate for age. PSYCH: Mentation appears normal, affect normal/bright, judgement and insight intact, normal speech and appearance well-groomed. Lab on 09/17/2023 Component Date Value Ref Range Status CRP Inflammation 09/17/2023 <3.00 <5.00 mg/L Final Erythrocyte Sedimentation Rate 09/17/2023 10 0 - 20 mm/hr Final Video-Visit Details Type of service: Video Visit Originating Location (pt. Location): Other work Distant Location (provider location): On-site Platform used for Video Visit: Bettye ERTY ADJUSTER documented in this encounter Plan of Treatment Upcoming Encounters Date Type Department Care Team (Late st Contact Info) Description 03/19/2024 3:30 PM CDT Office Visit [facility] Specialty [address] [place] [address] Elmer Paul MD [address] [facility], [address] [place], [place] [address] 04/16/2024 8:[address] [facility] [address] [facility] [address] [place] [address] 04/20/2024 8:45 AM CDT Office [facility] [address] [facility] [address] [place] [phone] Lavern Pope MD [address] [facility] [address] [place] [phone] documented as of this encounter Visit Diagnoses Diagnosis Class 2 obesity due to excess calories without serious comorbidity with body mass index (BMI) of 35.0 to 35.9 in adult- Primary Alternating constipation and diarrhea Other symptoms involving digestive system Abdominal cramping Abdominal pain, unspecified site Cervical radiculopathy Brachial neuritis or radiculitis nos documented in this encounter Additional Health Concerns Assessment Noted Time PHQ-9 Depression Total Score: 22 10/14/ 023 12:40 PM PROPERTY ADJUSTER documented as of this encounter Care Teams Vault Mechanic Relationship Specialty Start Date End Date Carey Vuong MD [address] [place] [address] [place] [address] PCP - General 01/15/02 Mehreen Scott MD [facility] [address] [place] [address] parking lot laborer 12/15/19 Carey Vuong MD [address] [place] [address] [place] [address] Assigned PCP 02/22/21 Prema Hitchcock PA-C [address] [place] [address] Assigned Surgical Provider 11/04/21 Harriet Lindsay Personal Advocate & Liaison (PAL) 06/17/22 Aisha Murdock PA-C [facility] [address] [place] [address] Assigned Neuroscience Provider 06/08/22 11/28/23 Lavern Pope MD [address] [place] [address] Cardiovascular Disease 11/11/22 Lavern Pope MD [address] [place] [id number] Assigned Heart and Vascular Provider 11/16/22 Elmer Paul MD [address] [place] [address] Allergy & Immunology 02/17/23 Elmer Paul MD [address] [place] [address] Assigned Allergy Provider 04/26/23 Batool Torres NP [address] [place] [address] Nurse Practitioner Pulmonary Disease 08/11/23 [place] [address] [place] [address] Nurse Practitioner Nurse Practitioner 10/29/23 documented as of this encounter
--- OUTSIDE RECORDS SUMMARY | 2023-12-29 23:08 | XMS_ITS | Encounter Summary ---
Author Name Unknown Organization [place] Address [address] [place] [address] Care Team Providers Care Microgrinder Operator Name Role Phone Carey Vuong MD Primary Care Provider [phone] Mehreen Scott MD Unavailable [phone] Carey Vuong MD Unavailable Prema Hitchcock PA-C Unavailable [phone] Chidi Puckett MD Unavai lable Harriet Lindsay Unavailable Unavailable Aisha Murdock PA-C Unavailable [phone] Lavern Pope MD Unavailable [phone] Lavern Pope MD Unavailable [phone] Elmer Paul MD Unavailable [phone] Elmer Paul MD Unavailable [phone] Batool Torres NP Unavailable Reason for Visit * Reason Onset Date Comments Refill Request 10/10/2023 Encounter Details Date Type Department Care Team (Late st Contact Info) Description 10/10/2023 [facility] [address] [facility] [address] [place] [address] Harriet Lindsay Refill Request Social History Tobacco Use Types Packs/Day Years [...] How often do you attend chur or amish services? More than 4 times per year 06/17/2022 Do you belong to any clubs o r organizations such as jew groups, unions, fraternal or athletic groups, or [...] PHQ-2 Answer Date Recorded PHQ-2 Score 2 09/23/2023 [facility] of Occupat ional Health - [...] you got money to buy more? No 09/23/2023 Within the past 12 months, d id the food you bought just not last and you didn? t have money to get more? No 09/23/2023 Housing Stability Answer Date Recorded Do you have housing? Yes 09/23/2023 Are you worried about losing your housing? No 09/23/2023 Financial Resource Strain Answer Date R ecorded Within the past 12 months, h ave you or your family members you live with been unable to get utilities (heat, electricity) when it was really needed? No 09/23/2023 Transportation Needs Answer Date Record ed Within the past 12 months, h as lack of transportation kept you from medical appointments, getting your medicines, non-medical meetings or appointments, work, or from getting things that you need? No 09/23/2023 Interpersonal Safety Answer Date Record ed Do [...] Sex Assigned at Female 12/12/2019 6:30 PM FINANCIAL SECRETARY Gender Identity Female 12/12/2019 6:30 PM FINANCIAL SECRETARY Sexual Orientation Straight 04/04/2021 12 :18 PM CDT Travel History Travel Start Travel End [place] 12/06/2023 12/12/2023 documented as of this encounter Plan of Treatment Upcoming Encounters Date Type Department Care Team (Late st Contact Info) Description 03/19/2024 3:30 PM CDT Office Visit [address] [place] [phone] Elmer Paul MD [address] [facility] [place] [address] 04/16/2024 8:30 AM CDT Lab [facility] [address] [facility] [address] [place] [phone] 04/20/2024 8:45 AM CDT Office Visit [facility] [address] [facility] [address] [place] [phone] Lavern Pope MD [address] [facility] [address] [place] [id number] documented as of this encounter Visit Diagnoses Not on filedocumented in this encounter Additional Health Concerns Assessment Noted Time PHQ-9 Depression Total Score: 7 09/23/20 23 4:13 PM CDT documented as of this encounter Care Teams Microgrinder Operator Relationship Specialty Start Date End Date Carey Vuong MD [address] [place] [address] [place] [address] PCP - General 01/15/02 Mehreen Scott MD [address] [facility] [address] [place] [phone] padding gluer 12/15/19 Carey Vuong MD [address] [place] [address] [place] [address] Assigned PCP 02/22/21 Prema Hitchcock PA-C [address] [place] [address] Assigned Surgical Provider 11/04/21 Chidi Puckett MD [address] [place] [address] Assigned Sleep Provider 02/17/22 10/31/23 Harriet Lindsay Personal Advocate & Liaison (PAL) 06/17/22 Aisha Murdock PA-C [facility] [address] [place] [address] Assigned Neuroscience Provider 06/08/22 11/28/23 Lavern Pope MD [address] [facility] [address] [facility] [address] [place], [place] [address] Cardiovascular Disease 11/11/22 Lavern Pope MD [address] [facility] [address] [place] [address] Assigned Heart and Vascular Provider 11/16/22 Elmer Paul MD [address], [address] [place] [address] Allergy & Immunology 02/17/23 Elmer Paul MD [address] [place] [address] Assigned Allergy Provider 04/26/23 Batool Torres, ACTUARIAL CLERK [address] [facility] [place] [address] Nurse Practitioner Pulmonary Disease 08/11/23 documented as of this encounter
--- OUTSIDE RECORDS SUMMARY | 2023-12-29 23:08 | XMS_ITS | Encounter Summary ---
Author Name Unknown Organization [place] Address [address] [place] [address] Care Team Providers Care Agency Cashier Name Role Phone Carey Vuong MD Primary Care Provider Mehreen Scott MD Unavailable [phone] Carey Vuong MD Unavailable [phone] Prema Hitchcock PA-C Unavailable [phone] Harriet Lindsay Unavailable Unavailable Aisha MurdockC Unavailable Lavern Pope MD Unavailable [phone] Lavern Pope MD Unavailable [phone] Elmer Paul MD Unavailable [phone] Elmer Paul MD Unavailable [phone] Batool Torres NP Unavailable Marlene Benoit NP Unavailable [phone] Encounter Details Date Type Department Care Team (Latest Contact Info) Description 11/04/2023 Travel Social History Tobacco Use Types Packs/Day [...] week 06/17/2022 How often do you attend [facility] or synagogue services? More than 4 times per year 06/17/2022 Do you belong to any clubs o r organizations such as anabaptist groups, unions, fraternal or athletic groups, or [...] Answer Date Recorded PHQ-2 Score 6 10/14/2023 [facility] - [facility] Stress Questionnaire Answer Date [...] Sex Assigned at Female 12/12/2019 6:30 PM ICING COATER Gender Identity Female 12/12/2019 6:30 PM ICING COATER Sexual Orientation Straight 04/04/2021 12 :18 PM CDT Travel History Travel Start Travel End [place] 12/06/2023 12/12/2023 documented as of this encounter Plan of Treatment Upcoming Encounters Date Type Department Care Team (Late st Contact Info) Description 03/19/2024 3:30 PM CDT Office Visit [facility] Specialty [facility] [address] [place] [address] [address] [place] [address] Elmer Paul MD [address] , [address] [place] [address] 04/16/2024 8:30 AM CDT Lab [facility] Heart [facility] [address] [place] [address] [address] [place] [phone] 04/20/2024 8:45 AM CDT Office Visit [facility] [place] [address] [facility] [address] [place] [phone] Lavern Pope MD [address] [facility] [address] [place] [phone] documented as of this encounter Visit Diagnoses Not on filedocumented in this encounter Additional Health Concerns Assessment Noted Time PHQ-9 Depression Total Score: 023 12:40 PM ICING COATER documented as of this encounter Care Teams Agency Cashier Relationship Specialty Start Date End Date Carey Vuong MD [address] [place] [address] [place] [address] PCP - General 01/15/02 Mehreen Scott MD [address] [facility] 100 [place] [phone] plastic fixture builder 12/15/19 Carey Vuong MD [address] [place] [address] [place] [address] Assigned PCP 02/22/21 Prema Hitchcock PA-C [address] [place] [address] Assigned Surgical Provider 11/04/21 Harriet Lindsay Personal Advocate & Liaison (PAL) 06/17/22 Aisha Murdock PA-C [facility] [address] [place] [address] Assigned Neuroscience Provider 06/08/22 11/28/23 Lavern Pope MD [address] [place] [address] Cardiovascular Disease 11/11/22 Lavern Pope MD [address] [place] [address] Assigned Heart and Vascular Provider 11/16/22 Elmer Paul MD [address], [address] [place] [phone] Allergy & Immunology 02/17/23 Elmer Paul MD [address] [place], [place] [address] Assigned Allergy Provider 04/26/23 Batool Torres NP [address] [place] [address] Nurse Practitioner Pulmonary Disease 08/11/23 [place] [address] [place] [address] Nurse Practitioner Nurse Practitioner 10/29/23 documented as of this encounter
--- OUTSIDE RECORDS SUMMARY | 2023-12-29 23:08 | XMS_ITS | Encounter Summary ---
Author Name Unknown Organization [place] Address [address] [place] [address] Care Team Providers Care Relay Assembler Name Role Phone Carey Vuong MD Primary Care Provider [phone] Mehreen Scott MD Unavailable [phone] Carey Vuong MD Unavailable Prema Hitchcock PA-C Unavailable [phone] Chidi Puckett MD Unavai lable Harriet Lindsay Unavailable Unavailable Aisha Murdock PA-C Unavailable [phone] Lavern Pope MD Unavailable Lavern Pope MD Unavailable [phone] Elmer Paul MD Unavailable [phone] Elmer Paul MD Unavailable [phone] Batool Torres NP Unavailable [phone] Marlene Benoit NP Unavailable [phone] Encounter Details Date Type Department Care Team (Late st Contact Info) Description 10/29/2023 [facility] Orthopedic [place] [phone] [facility] [address] 4th [place] [address] Danny Villegas PA-C [address] [place] [address] Social History Tobacco Use Types Packs/Day Years [...] do you attend [facility] or jew services? More than 4 times per year 06/17/2022 Do you belong to any clubs o r organizations such as hinduism groups, unions, fraternal or athletic groups, or [...] Answer Date Recorded PHQ-2 Score 6 10/14/2023 [facility] [place] of Occupat ional Health - Occupational Stress [...] Sex Assigned at Female 12/12/2019 6:30 PM PLASTICS TECHNICIAN Gender Identity Female 12/12/2019 6:30 PM PLASTICS TECHNICIAN Sexual Orientation Straight 04/04/2021 12 :18 PM CDT Travel History Travel Start Travel End [place] 12/06/2023 12/12/2023 documented as of this encounter Miscellaneous Notes * Telephone Encounter - Danny Villegas PA-C - 10/29/2023 2:16 PM PLASTICS TECHNICIAN I spoke with patient in regards to her chief complaint for office visit with me tomorrow including cervical neck pain and right arm symptoms. Patient has documented cervical multilevel stenosis and has been treated at the pain clinic previously with cervical cortisone injections. Last cervical injections done in July 2023. We discussed that it would be more appropriate for the patient to continue with her current pain team for management of her current complaint opposed to nonop sports medicine. Patient did not see the APGR Greent message sent from the pain team offering an appointment to be seen. Patient is comfortable calling the number provided by the pain team to arrange a appointment forher neck and upper extremity symptoms. Patient does not have any motor weakness or red flag symptoms. Patient agrees that she does not need to be seen urgently. I will double check that patient has an appointment scheduled with the pain team later today and once that is confirmed I will cancel her appointment with me for tomorrow. All patient's questions and concerns addressed. TICS TECHNICIAN documented in this encounter Plan of Treatment Upcoming Encounters Date Type Department Care Team (Late st Contact Info) Description 03/19/2024 3:30 PM CDT Office Visit [facility] [place] [address] [facility] [address] [place] [phone] Elmer Paul MD [address] [facility] [address] [place] [address] 04/16/2024 8:30 AM CDT Lab [facility] Heart [facility] [address] [facility] [address] [place] [phone] 04/20/2024 8:45 AM CDT Office Visit [facility] Heart [facility] [address] [facility] [address] [place] [phone] Lavern Pope MD [address] [facility] [address] [place] [address] documented as of this encounter Visit Diagnoses Not on filedocumented in this encounter Additional Health Concerns Assessment Noted Time PHQ-9 Depression Total Score: 22 023 12:40 PM PLASTICS TECHNICIAN documented as of this encounter Care Teams Relay Assembler Relationship Specialty Start Date End Date Carey Vuong MD [address] [facility] [place] [address] PCP - General 01/15/02 Mehreen Scott MD [address] [place] [phone] custodian blood bank 12/15/19 Carey Vuong MD [address] [facility] [place] [address] Assigned PCP 02/22/21 Prema Hitchcock PA-C [address] [place] [address] Assigned Surgical Provider 11/04/21 Chidi Puckett MD [address] [place] [address] Assigned Sleep Provider 02/17/22 10/31/23 Harriet Lindsay Personal Advocate & Liaison (PAL) 06/17/22 Aisha Murdock PA-C [facility] [address] [place] [address] Assigned Neuroscience Provider 06/08/22 11/28/23 Lavern Pope MD [address] [facility] [address] [place] [address] Cardiovascular Disease 11/11/22 Lavern Pope MD [address] [facility] [address] [place], [place] [address] Assigned Heart and Vascular Provider 11/16/22 Elmer Paul MD [address], [address] [place], [place] [address] Allergy & Immunology 02/17/23 Elmer Paul MD [address] , [address] [place], [place] [address] Assigned Allergy Provider 04/26/23 [place] [address] [place] [address] Nurse Practitioner Pulmonary Disease 08/11/23 [place] [address] [place] [address] Nurse Practitioner Nurse Practitioner 10/29/23 documented as of this encounter
--- OUTSIDE RECORDS SUMMARY | 2023-12-29 23:08 | XMS_ITS | Encounter Summary ---
Author Name Unknown Organization [place] Address [address] [place] [address] Care Team Providers Care General Supervisor Name Role Phone Carey Vuong MD Primary Care Provider [phone] Mehreen Scott MD Unavailable [phone] Carey Vuong MD Unavailable [phone] Prema Hitchcock PA-C Unavailable [phone] Chidi Puckett MD Unavai lable Harriet Lindsay Unavailable Unavailable Aisha Murdock PA-C Unavailable Lavern Pope MD Unavailable [phone] Lavern Pope MD Unavailable Elmer Paul MD Unavailable [phone] Elmer Paul MD Unavailable [phone] Batool Torres NP Unavailable [phone] Reason for Visit * Reason Onset Date Comments MyChart Communication 10/28/2023 Encounter Details Date Type Department Care Team (Latest Contact Info) Description 10/28/2023 [facility] [address] [place] [address] Carey Vuong MD [address] [facility] [place] [address] MyChart Communication Social History Tobacco Use Types Packs/Day Years [...] week 06/17/2022 How often do you attend [facility] or tenriism services? More than 4 times per year 06/17/2022 Do you belong to any clubs o r organizations such as caodaism groups, unions, fraternal or athletic groups, or [...] Date Recorded PHQ-2 Score 6 10/14/2023 [facility] of Occupat ional Health - Occupational Stress [...] Assigned at Female 12/12/2019 6:30 PM MANAGER MARKETING Gender Identity Female 12/12/2019 6:30 PM MANAGER MARKETING Sexual Orientation Straight 04/04/2021 12 :18 PM CDT Travel History Travel Start Travel End [place] 12/06/2023 12/12/2023 documented as of this encounter Miscellaneous Notes * Telephone Encounter - Rayray Sierra RN - 10/28/2023 1:13 PM CST Called patient. Please see nurse triage encounter. Rayray Sierra, RN on 10/28/2023 at 1:35 PM GER MARKETING documented in this encounter Plan of Treatment Upcoming Encounters Date Type Department Care Team (Late st Contact Info) Description 03/19/2024 3:30 PM CDT Office Visit [facility] [address] [facility] [address] [place] [phone] Elmer Paul MD [address] [facility] [address] [place] [address] 04/16/2024 8:30 AM CDT Lab [facility] [address] [facility] [address] [place] [phone] 04/20/2024 8:45 AM CDT Office Visit [facility] [address] [facility] [address] [place] [phone] Lavern Pope MD [address] [facility] [address] [place] [phone] documented as of this encounter Visit Diagnoses Not on filedocumented in this encounter Additional Health Concerns Assessment Noted Time PHQ-9 Depression Total Score: 22 023 12:40 PM MANAGER MARKETING documented as of this encounter Care Teams General Supervisor Relationship Specialty Start Date End Date Carey Vuong MD [address] [facility] [place] [address] PCP - General 01/15/02 Mehreen [place] MD [address] [place] [phone] health manager 12/15/19 Carey Vuong MD [address] [place] [address] Assigned PCP 02/22/21 Prema Hitchcock PA-C [address] [place] [address] Assigned Surgical Provider 11/04/21 Chidi Puckett MD [address] [place], [place] [address] Assigned Sleep Provider 02/17/22 10/31/23 Harriet Lindsay Personal Advocate & Liaison (PAL) 06/17/22 Aisha Murdock PA-C [facility] [address] [place] [address] Assigned Neuroscience Provider 06/08/22 11/28/23 Lavern Pope MD [address] [place] [address] Cardiovascular Disease 11/11/22 Lavern Pope MD [address] [place] [address] Assigned Heart and Vascular Provider 11/16/22 Elmer Paul MD [address] [place], [place] [address] Allergy & Immunology 02/17/23 Elmer Paul MD [address] [place] [address] Assigned Allergy Provider 04/26/23 Batool Torres NP [address] [place] [address] [place] [address] Nurse Practitioner Pulmonary Disease 08/11/23 documented as of this encounter
--- OUTSIDE RECORDS SUMMARY | 2023-12-29 23:08 | XMS_ITS | Encounter Summary ---
Author Name Unknown Organization [facility] Address [address] [place] [address] Care Team Providers Care Flight Simulator Teacher Name Role Phone Carey Vuong MD Primary Care Provider [phone] Mehreen Scott MD Unavailable [phone] Carey Vuong MD Unavailable [phone] Prema Hitchcock PA-C Unavailable [phone] Chidi Puckett MD Unavai lable Harriet Lindsay Unavailable Unavailable Aisha Murdock PA-C Unavailable [phone] Lavern Pope MD Unavailable [phone] Lavern Pope MD Unavailable [phone] Elmer Paul MD Unavailable [phone] Elmer Paul MD Unavailable [phone] Batool Torres NP Unavailable Marlene Benoit NP Unavailable [phone] Reason for Referral * Consultation (Urgent: 3-5 Days) - Pending Review Specialty Diagnoses / Procedures Referred By Contac t Referred To Contact Diagnoses Numbness and tingling of right thumb Kayleigh Alexander PA-C [address] [facility] [place] [address] Referral ID Status Reason Start Date Expiration Date V isits Requested Visits Authorized [id number] Pending Review 10/29/2023 10/28/2024 1 1 Question Answer Consult Type: Other Type: Non-Surgical Ortho/Sports Med My Clinical Question Is: Right thumb numbness and tingling that is persistent and moving up her arm. Scheduling Instructions: [facility] Orthopedic Literary Writer will call you to coordinate your care as prescribed by your provider. A outside sales representative insurance will call you within 2 business days to help you schedule your appointment, or you may contact the Literary Writer General Counselor at: . Comments Please be aware that coverage of these services is subject to the terms and limitations of your health insurance plan. Call member services at your health plan with any benefit or coverage questions. [facility] Orthopedic Literary Writer will call you to coordinate your care as prescribed by your provider. A outside sales representative insurance will call you within 2 business days to help you schedule your appointment, or you may contact the Literary Writer General Counselor at: . SAMPLE BEVELER Reason for Visit * Reason Comments RECHECK Encounter Details Date Type Department Care Team (Late st Contact Info) Description 10/29/2023 1:00 PM RUG SAMPLE BEVELER Office Visit [facility] [facility] [address] [place] [phone] Kayleigh Alexander PA-C [address] [facility] [place] [address] Numbness and tingling of right thumb (Primary Dx) Social History Tobacco Use Types [...] often do you attend [facility] or [facility] services? More than 4 times per year 06/17/2022 Do you belong to any clubs o r organizations such as hoahaoism groups, unions, fraternal or athletic groups, or [...] Date Recorded PHQ-2 Score 6 10[facility]14/2023 [facility] Questionnaire Answer Date [...] Sex Assigned at Female 12/12/2019 6:30 PM RUG SAMPLE BEVELER Gender Identity Female 12/12/2019 6:30 PM RUG SAMPLE BEVELER Sexual Orientation Straight 04/04/2021 12 :18 PM CDT Travel History Travel Start Travel End [place] 12/06/2023 12/12/2023 documented as of this encounter Last Filed Vital Signs Vital Sign Reading Time Taken Comments Blood Pressure 111/77 10/29/2023 12:45 PM RUG SAMPLE BEVELER Pulse 73 10/29/2023 12:45 PM RUG SAMPLE BEVELER Temperature 37.1 ??C (98.7 ??F) 10/29/2023 1 2:45 PM RUG SAMPLE BEVELER Respiratory Rate 12 10/29/2023 12:4 5 PM RUG SAMPLE BEVELER Oxygen Saturation 96% 10/29/2023 12: 45 PM RUG SAMPLE BEVELER Inhaled Oxygen Concentration - - Weight 103.9 kg (229 lb 1.6 oz) 023 12:45 PM RUG SAMPLE BEVELER Height - - Body Mass Index 37.54 09/11/2023 8:54 AM CDT documented in this encounter Progress Notes * Kayleigh Alexander PA-C - 10/29/2023 1:00 PM CST Assessment & Plan Numbness and tingling of right thumb - Orthopedic Literary Writer Referral; Future Patient was seen today for numbness and tingling in the right thumb for the past couple of weeks. She has a normal exam today. Dicussed with primary care provider. Will do an urgent referral to sports medicine. Referral placed. Patient advised to see them as soon as she is able. Patient understandsand agrees with the plan today. BIN Betancourt [facility] R[facility] Santos is a 48 year old, presenting for the following health issues: RECHECK 10/29/2023 12:42 PM Additional Questions Roomed by JASMINA Atwood Accompanied by n/a 10/29/2023 12:42 PM Patient Reported Additional Medications Patient reports taking the following new medications n/a CONCERNS: N/A History of Present Illness Reason for visit: Thumb numbess and tingling, arm and hand tingling (all on the right side) Symptom onset: More than a month Symptoms include: Headache, thumb numbness and tingling and spreading to arm and hands Symptom intensity: Moderate Symptom progression: Worsening Had these symptoms before: No What makes it worse: Sleeping What makes it better: No, I've tried everything. Massage, chiropractor, ibuprofen and icing. She eats 0-1 servings of fruits and vegetables daily.She consumes 2 sweetened beverage(s) daily.Sheexercises with enough effort to increase her heart rate 30 to 60 minutes per day. She exercises with enough effort to increase her heart rate 3 or less days per week. She is missing 1 dose(s) of medications per week. She is not taking prescribed medications regularly due to remembering to take. Patient states that she is having right thumb numbness and tingling that is nearly constant and hasbeen for the past 3-4 weeks. She says that it feels like the numbness travels up her arm. She does have a history of neck problems and has had injections in the neck before. She has tried massage andchiropractics without relief. Review of Systems Constitutional, HEENT, cardiovascular, pulmonary, gi and gu systems are negative, except as otherwise noted. Objective BP 111/77 (BP Location: Right arm, Patient Position: Sitting, Cuff Size: Adult Large) Pulse 73 Temp 98.7 ??F (37.1 ??C) (Oral) Resp 12 Wt 103.9 kg (229 lb 1.6 oz) LMP (LMP Unknown) SpO2 96% No BMI 37.54 kg/m?? Body mass index is 37.54 kg/m??. Physical Exam GENERAL: healthy, alert and no distress EYES: Eyes grossly normal to inspection, PERRL and conjunctivae and sclerae normal MS: no gross musculoskeletal defects noted, no edema MS: normal muscle tone, normal range of motion. She has a negative tinel's and phalens test. She also has a normal tory's test. She has normal ROM, strength and sensation in her hands, fingersand wrists bilaterally. No pain in palpation of her neck. SKIN: no suspicious lesions or rashes NEURO: Normal strength and tone, mentation intact and speech normal Kayleigh Alexander PA-C SAMPLE BEVELER documented in this encounter Plan of Treatment Upcoming Encounters Date Type Department Care Team (Late st Contact Info) Description 03/19/2024 3:30 PM CDT Office Visit [facility] [place] [address] [facility] [address] [place] [phone] Elmer Paul MD [address] [facility] [address] [place] [address] 04/16/2024 8:30 AM CDT Lab [facility] Heart [facility] [address] [facility] [address] [place] [phone] 04/20/2024 8:45 AM CDT Office Visit [facility] [address] [facility] [address] [place] [phone] Lavern Pope MD [address] [facility] [address] [place], [place] [phone] Scheduled Referrals Name Type Priority Associated Diagnoses Orde r Schedule Orthopedic Literary Writer Referral Referral Urgent: 3-5 Days Numbness and tingling of right thumb Expected: 10/29/2023 (Approximate), Expires: 10/29/2024 documented as of this encounter Visit Diagnoses Diagnosis Numbness and tingling of right thumb- Primary Disturbance of skin sensation documented in this encounter Additional Health Concerns Assessment Noted Time PHQ-9 Depression Total Score: 22 023 12:40 PM RUG SAMPLE BEVELER documented as of this encounter Care Teams Flight Simulator Teacher Relationship Specialty Start Date End Date Carey Vuong MD [address] [facility] [address] PCP - General 01/15/02 Mehreen Scott MD [address] [place] [phone] inflatable buildings laminator 12/15/19 Carey Vuong MD [address] [facility] [place] [address] Assigned PCP 02/22/21 Prema Hitchcock PA-C [address] [place] [address] Assigned Surgical Provider 11/04/21 Chidi Puckett MD [address] [place], [place] [address] Assigned Sleep Provider 02/17/22 10/31/23 Harriet Lindsay Personal Advocate & Liaison (PAL) 06/17/22 Aisha Murdock PA-C [facility] [address] [place] [address] Assigned Neuroscience Provider 06/08/22 11/28/23 Lavern Pope MD [address] [facility] [address] [place] [address] Cardiovascular Disease 11/11/22 Lavern Pope MD [address] [facility] [address] [place] [address] Assigned Heart and Vascular Provider 11/16/22 Elmer Paul MD [address] [place] [address] Allergy & Immunology 02/17/23 Elmer Paul MD [address] [place] [address] Assigned Allergy Provider 04/26/23 Batool Torres NP [address] [facility] [place] [address] Nurse Practitioner Pulmonary Disease 08/11/23 [place] [address] [address] [place] [address] Nurse Practitioner Nurse Practitioner 10/29/23 documented as of this encounter
--- OUTSIDE RECORDS SUMMARY | 2023-12-29 23:08 | XMS_ITS | Encounter Summary ---
Author Name Unknown Organization [facility] Address [address] [place] [address] Care Team Providers Care Addiction Social Worker Name Role Phone Carey Vuong MD Primary Care Provider [phone] Mehreen Scott MD Unavailable [phone] Carey Vuong MD Unavailable [phone] Prema HitchcockC Unavailable [phone] Harriet Lindsay Unavailable Unavailable Aisha MurdockC Unavailable [phone] Lavern Pope MD Unavailable [phone] Lavern Pope MD Unavailable [phone] Elmer Paul MD Unavailable [phone] Elmer Paul MD Unavailable [phone] Batool Torres NP Unavailable [phone] Marlene Benoit NP Unavailable [phone] Reason for Referral * Consultation (Routine) - Pending Review Specialty Diagnoses / Procedures Referred By Contac t Referred To Contact Diagnoses Cervical radiculopathy Spondylosis of cervical region without myelopathy or radiculopathy Marlene Benoit, CASTING AGENT [address] [place] [address] Referral ID Status Reason Start Date Expiration Date V isits Requested Visits Authorized [id number] Pending Review 11/04/2023 11/03/2024 1 1 Scheduling Instructions Interventional Evaluation: Interventional Injection Only - Type of Injection: C7-T1 ILESI Radiology? Yes ICAL DERMATOLOGIST Reason for Visit * Reason Comments Pain Encounter Details Date Type Department Care Team (Late st Contact Info) Description 11/04/2023 8:00 AM CLINICAL DERMATOLOGIST Office Visit [facility] [place] [address] [place], [place] [address] [place] [address] [place] [address] Cervical radiculopathy (Primary Dx); Spondylosis of cervical region without myelopathy or radiculopathy Social History Tobacco Use Types Packs/Day Years Used Date Smoking Tobacco: Former Cigarettes 0 10 Cigars Quit: 12/01/19 23 Passive Smoke Exposure: Past Smokeless Tobacco: Never Tobacco Cessation:Counseling Given: No Comments:smokes a single cigar nightly Alcohol Use [...] often do you attend chur ch or samaritan services? More than 4 times [...] Answer Date Recorded PHQ-2 Score 6 10/14/2023 [facility] - Occupational Stress Questionnaire Answer Date [...] Sex Assigned at Female 12/12/2019 6:30 PM CLINICAL DERMATOLOGIST Gender Identity Female 12/12/2019 6:30 PM CLINICAL DERMATOLOGIST Sexual Orientation Straight 04/04/2021 12 :18 PM CDT Travel History Travel Start Travel End [place] 12/06/2023 12/12/2023 documented as of this encounter Last Filed Vital Signs Vital Sign Reading Time Taken Comments Blood Pressure 123/73 11/04/2023 8:05 AM CLINICAL DERMATOLOGIST Pulse 71 11/04/2023 8:05 AM CLINICAL DERMATOLOGIST Temperature - - Respiratory Rate - - Oxygen Saturation 99% 11/04/2023 8:05 AM CLINICAL DERMATOLOGIST Inhaled Oxygen Concentration - - Weight - - Height - - Body Mass Index - - documented in this encounter Patient Instructions * Patient Instructions* Marlene Benoit NP - 11/04/2023 8:00 AM CLINICAL DERMATOLOGIST The semiconductor packages leak tester will contact you to set up your injection. Please follow up with me in 3-4 weeks to reassess symptoms and response to treatment. If thumb and neck pain is not improving, will plan to update cervical MRI. Scheduling/Clinic telephone number for ALL locations: [phone] After Hours On-Call Service for Emergencies: [phone] Call with any questions about your care and for scheduling assistance. Calls are returned Friday through Friday between 8 AM and 4:00 PM. We usually get back to you within 2-3 business days depending on the issue/request. I am not in the clinic on Fridays. If we are prescribing your medications: For medication refills, call the clinic or send a [employer]Globe message 7 days in advance. Please includethe name of the requested medication and your preferred pharmacy. Please allow 3-4 days to be processed. Per [place] State Law, all controlled substance prescriptions must be filled within 30 days of being written. For those controlled substances allowing refills, pickup must occur within 30 days of last fill. We believe regular attendance is shannon to your success in our program! If you are unable to keep your appointment we ask that you call us at least 24 hours in advance to cancel.This will allow us to offer the appointment time to another patient. Multiple missed appointments may lead to dismissal from the clinic. ICAL DERMATOLOGIST documented in this encounter Progress Notes * Marlene Benoit NP - 11/04/2023 8:00 AM CST Images from the original note were not included. [facility] Date of Visit: 11/04/2023 Last visit: 07/03/2023 Original Consult: 01/06/2023 Danielle Garza is a [...] radiates distally into left buttock with Aisha Murdock PA-C. 11/12/22: Atypical Chest Pain and Palpitations, associated with light- headedness, nausea, headache and brain fog. Cardiology thought it was not clearly cardiac in origin, questioned atypical migraines. 11/19/22: severe abdominal pain, negative CT, referred to GI (not seen yet) 12/11/22: UTI 12/23/22: neurology consult; was scheduled at [facility] - patient cancelled. Low back pain [...] better with sitting. Neck pain/Headaches : Cancelled [facility] neurology consult, I am sick of going to the doctor. Episodes where she had profound tremors and shaking, did not get evaluated, laid down flat and symptoms resolved in 10 minutes. Pain improved with topiramate and cervical OLIVIA in January 2023. Recommendations from last visit: 1. Chronic bilateral [...] - Underwent C7-T1 ILESI with Dr. Terry in mid July to treat neck and left arm pain. This was helpful and left arm is not bothering her. - Recently called to report right thumb numbness and tingling that is nearly constant and has been for the past month. She says that it feels like the numbness travels up her arm 2-3 times per day. She has tried massage and chiropractics with temporary relief, going once a week. Movement seems to make it better, cannot really tell what aggravates the pain, at times it can be computer work. Feels like she is having constant headaches - Stopped taking Topiramate 50 mg twice a day about 2 weeks ago. Discussed with PCP, she decided that it was not helpful anymore. Does not think that being off of topiramate has made her symptoms anyworse. - Occasional pain in her right lower extremity. Has not been exercising or working out lately. Robaxin helpful, if she takes it before bed, she could sleep and wake up without spasms or pain. Now having times where she is waking up due to pain again. - Persistent gut issues; SIBO, thrush, diarrhea and constipation. Seeing GI specialist. Nothing ishelping. Will be seeing a different specialist next month. Also had flare of asthma in August that required oral steroids to clear. - Lots of stress with caring for aging in-laws as they transition from their home into supportive care environment. GERRI 30 days after moving. Then her health declined and work demands increased at the same time. It has been a lot. Pain description: Location: neck (aching), right thumb (numbness) Quality: aching, right thumb Duration: intermittent Severity/Intensity: 2/10 at rest, worse with movement Aggravating factors include: strenuous activities Relieving factors include: lying down, medication, relaxation Current pain medications: Ibuprofen prn Excedrin Migraine prn Robaxin 500-1000 mg prn Review of [place] Prescription Monitoring Program (MORTGAGE LOAN UNDERWRITER): No concern for abuse or misuse of [...] medications: Acetaminophen 2. PHYSICAL THERAPY: Completed at [facility] [place] Summer 2021, was combination of PT and Chiropractic - helped, still does HEP 3. PAIN PSYCHOLOGY: Not tried 4. SURGERY: Not for back or neck. 15 knee surgeries. 5. INJECTIONS: 07/16/23: C7-T1 ILESI with Dr. Terry: helped 05/30/23: [...] endplate osteophytic ridging and mildbilateral uncovertebral spurring. [id number] right neural foraminal stenosis. The left neuralforamen [...] She reports that she quit smoking about 11 months ago. Her smoking use included cigarettes and cigars. She has been exposed to tobacco smoke. She has never used smokeless tobacco. She reports that she does not currently use alcohol after a past usage of about 6.0 standard drinks of alcohol per week. She reports that she does not use drugs. Social History Social History Narrative . 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 Enjoys working out. Medications and Allergies reviewed. Objective Vitals: 11/04/23 0805 BP: 123/73 BP Location: Right arm Cuff Size: Adult Regular Pulse: 71 SpO2: 99% Constitutional: Well developed, well nourished, appears stated [...] Normal bulk and tone. Unremarkable spinal curvature. Cervical spine: ROM: mildly restricted Myofascial tenderness: left paracervical muscles, right paracervical muscles Normal 5/5 UE strength bilaterally Normal sensation to light touch in the C4-T1 distributions bilaterally with the exception of diminished sensation in the tip of her right thumb. No allodynia, dysesthesia, or hyperalgesia in the upper extremities bilaterally Assessment & Plan Cervical radiculopathy Spondylosis of cervical region without myelopathy or radiculopathy Pain symptoms correlate with C6 nerve root irritation. ILESI ordered for C7-T1. If not helpful, could consider cervical MRI. Follow up with me in 3-4 weeks to reassess symptoms and response to treatment. - PAIN INJECTION EVAL/TREAT/FOLLOW UP Marlene Benoit, HOUSE FATHER-BC, PMGT-BC, AP-PMN [facility] ICAL DERMATOLOGIST documented in this encounter Plan of Treatment Upcoming Encounters Date Type Department Care Team (Late st Contact Info) Description 03/19/2024 3:30 PM CDT Office Visit [facility] [place] [address] [facility] 200 [place] [address] Elmer Paul MD [address] [facility] [address] [place] [address] 04/16/2024 8:30 AM CDT Lab [facility] [address] [facility] [address] [place] [phone] 04/20/2024 8:45 AM CDT Office Visit [facility] [address] [facility] [address] [place] [phone] Lavern Pope MD [address] [facility] [address] [place] [address] Scheduled Referrals Name Type Priority Associated Diagnoses Orde r Schedule PAIN INJECTION EVAL/TREAT/FOLLOW UP Referral Routine Cervical radiculopathy Spondylosis of cervical region without myelopathy or radiculopathy Ordered: 11/04/2023 documented as of this encounter Visit Diagnoses Diagnosis Cervical radiculopathy- Primary Brachial neuritis or radiculitis nos Spondylosis of cervical region without myelopathy or radiculopathy Cervical spondylosis without myelopathy documented in this encounter Additional Health Concerns Assessment Noted Time PHQ-9 Depression Total Score: 22 10/14/ 023 12:40 PM CLINICAL DERMATOLOGIST documented as of this encounter Care Teams Addiction Social Worker Relationship Specialty Start Date End Date Carey Vuong MD [address] [facility] [place] [address] PCP - General 01/15/02 Mehreen Scott MD [address] [facility] [address] [place] [phone] hardboard press operator 12/15/19 Carey Vuong MD [address] [place] [address] [place] [address] Assigned PCP 02/22/21 Prema Hitchcock PA-C [address] [place] [address] Assigned Surgical Provider 11/04/21 Harriet Lindsay Personal Advocate & Liaison (PAL) 06/17/22 Aisha Murdock PA-C [facility] [address] [place] [address] Assigned Neuroscience Provider 06/08/22 11/28/23 Lavern Pope MD [address] [facility] [address] [place] [address] Cardiovascular Disease 11/11/22 Lavern Pope MD [address] [facility] [address] [place] [address] Assigned Heart and Vascular Provider 11/16/22 Elmer Paul MD [address] [place] [phone] Allergy & Immunology 02/17/23 Elmer Paul MD [address] [facility] [address] [place], [place] [address] Assigned Allergy Provider 04/26/23 Batool Torres NP [address] [place] [address] Nurse Practitioner Pulmonary Disease 08/11/23 [place] [address] [place] [address] Nurse Practitioner Nurse Practitioner 10/29/23 documented as of this encounter
--- OUTSIDE RECORDS SUMMARY | 2023-12-29 23:08 | XMS_ITS | Encounter Summary ---
Author Name Unknown Organization [facility] Address [address] [place] [address] Care Team Providers Care Parts Cataloger Name Role Phone Carey Vuong MD Primary Care Provider [phone] Mehreen Scott MD Unavailable [phone] Carey Vuong MD Unavailable [phone] Prema Hitchcock PA-C Unavailable +[phone] Chidi Puckett MD Unavai lable Harriet Lindsay Unavailable Unavailable Aisha Murdock PA-C Unavailable [phone] Lavern Pope MD Unavailable [phone] Lavern Pope MD Unavailable [phone] Elmer Paul MD Unavailable [phone] Elmer Paul MD Unavailable [phone] Batool Torres NP Unavailable Marlene Benoit NP Unavailable [phone] Batool Torres NP Unavailable Encounter Details Date Type Department Care Team (Late st Contact Info) Description 10/28/2023 MyC Medical Advice [facility] [place] [address] [facility] [address] [place], [place] [address] [place] [address] [place] [address] Social History Tobacco Use Types Packs/Day Years [...] How often do you attend [facility] or yazidism services? More than 4 times [...] Answer Date Recorded PHQ-2 Score 6 10/14/2023 [facility] [place] of Occupat ional Health - Occupational Stress [...] Sex Assigned at Female 12/12/2019 6:30 PM BASEBALL SCOUT Gender Identity Female 12/12/2019 6:30 PM BASEBALL SCOUT Sexual Orientation Straight 04/04/2021 12 :18 PM CDT Travel History Travel Start Travel End [place] 12/06/2023 12/12/2023 documented as of this encounter Miscellaneous Notes * Telephone Encounter - Mary Hong RN - 10/28/2023 1:57 PM CST Will leave encounter open for patient response/chart review by nursing. Mychart Below from pt Hi Dr Rosario - I've been experiencing numbness in my right thumb and fingers. I've been to the chiropractor and I've gotten two massages but nothing is helping. Do you think this could be caused from my neck? Do you think a neck shot would help this? Any thoughts you might have would be appreciated. I'm not sure what doctor I should see or how to move forward with finding a solution. Mychart below response to pt Camila Santos, It looks like when you were seen last (July) you had discussed neck pain with radiation into the left arm and headaches. If you are having symptoms on the right, you will need to make an appointment for assessment and at that time can have a discussion as to what next steps might be helpful. I have put an order in so you can schedule a follow up with Marlene Benoit via Edxact or you can [phone] to set something up. Thanks Mary GÓMEZ, RN Social Work Nurse [facility] When responding to this message, please allow 24-48 business hours for a reply. If you need sooner assistance please call: [facility] at [phone] between the hours of 8:00AM and 4:30PM Friday through Friday. Note that 3D Data is not intended for emergencies, detailed provider communication, or in lieu of an office visit. Medication is not typically adjusted over FairSoftwarehart communication. BALL SCOUT documented in this encounter Plan of Treatment Upcoming Encounters Date Type Department Care Team (Late st Contact Info) Description 03/19/2024 3:30 PM CDT Office Visit [facility] [address] [place] [phone] Elmer Paul MD [address] [place] [address] 04/16/2024 8:30 AM CDT Lab [facility] [address] [facility] [address] [place] [phone] 04/20/2024 8:45 AM CDT Office Visit [facility] [address] [facility] [address] [place] [phone] Lavern Pope MD [address] [facility] [address] [place] [address] documented as of this encounter Visit Diagnoses Not on filedocumented in this encounter Additional Health Concerns Assessment Noted Time PHQ-9 Depression Total Score: 22 023 12:40 PM BASEBALL SCOUT documented as of this encounter Care Teams Parts Cataloger Relationship Specialty Start Date End Date Carey Vuong MD [address] [facility] [place] [address] PCP - General 01/15/02 Mehreen Scott MD [address] [facility] [address] [place] [phone] damage assessor 12/15/19 Carey Vuong MD [address] [facility] [place] [address] Assigned PCP 02/22/21 Prema Hitchcock PA-C [address] [place] [address] Assigned Surgical Provider 11/04/21 Chidi Puckett MD [address] [place], [place] [address] Assigned Sleep Provider 02/17/22 10/31/23 Harriet Lindsay Personal Advocate & Liaison (PAL) 06/17/22 Aisha Murdock PA-C [facility] [address] [facility] [place] [address] Assigned Neuroscience Provider 06/08/22 11/28/23 Lavern Pope MD [address] [facility] [address] [facility] [address] [place], [place] [address] Cardiovascular Disease 11/11/22 Lavern Pope MD [address] [facility] [address] [facility] [address] [place], [place] [address] Assigned Heart and Vascular Provider 11/16/22 Elmer Paul MD [address] [place], [place] [address] Allergy & Immunology 02/17/23 Elmer Paul MD [address] [facility] [facility] [address] [place], [place] [address] Assigned Allergy Provider 04/26/23 Batool Torres NP [address] [place] [address] Nurse Practitioner Pulmonary Disease 08/11/23 [place] [address] [address] [place] [address] Nurse Practitioner Nurse Practitioner 10/29/23 Batool Torres NP [address] [facility] [address] Assigned Pulmonology Provider 12/25/23 documented as of this encounter
--- OUTSIDE RECORDS SUMMARY | 2023-12-29 23:08 | XMS_ITS | Encounter Summary ---
Author Name Unknown Organization [facility] Address [address] [place] [address] Care Team Providers Care Warp Splitter Name Role Phone Carey Vuong MD Primary Care Provider [phone] Mehreen Scott MD Unavailable [phone] Carey Vuong MD Unavailable Prema Hitchcock PA-C Unavailable Chidi Puckett MD Unavai lable Harriet Lindsay Unavailable Unavailable Aisha Murdock PA-C Unavailable [phone] Lavern Pope MD Unavailable [phone] Lavern Pope MD Unavailable [phone] Elmer Paul MD Unavailable [phone] Elmer Paul MD Unavailable [phone] Batool Torres NP Unavailable Reason for Visit * Reason Comments Medication Refill Encounter Details Date Type Department Care Team (Late st Contact Info) Description 10/27/2023 [facility] [address] [place] [address] [address] [place] [address] Carey Vuong MD [address] [facility] [place] [address] Medication Refill Social History Tobacco Use Types [...] 06/17/2022 How often do you attend [facility] or amish services? More than 4 times per year 06/17/2022 Do you belong to any clubs o r organizations such as baptist groups, unions, fraternal or athletic groups, or [...] Answer Date Recorded PHQ-2 Score 6 10/14/2023 [facility] [place] of Occupat ional Health - Occupational Stress [...] Sex Assigned at Female 12/12/2019 6:30 PM COUNCIL MEMBER Gender Identity Female 12/12/2019 6:30 PM COUNCIL MEMBER Sexual Orientation Straight 04/04/2021 12 :18 PM CDT Travel History Travel Start Travel End [place] 12/06/2023 12/12/2023 documented as of this encounter Plan of Treatment Upcoming Encounters Date Type Department Care Team (Late st Contact Info) Description 03/19/2024 3:30 PM CDT Office [facility] [address] [facility] 200 [place] [phone] Elmer Paul MD [address] [facility] 200 [place] [address] 04/16/2024 8:30 AM CDT Lab [facility] [address] [facility] [address] [place] [phone] 04/20/2024 8:45 AM CDT Office Visit [facility] [address] [facility] [address] [place] [phone] Lavern Pope MD [address] [facility] [address] [place] [address] documented as of this encounter Visit Diagnoses Diagnosis Major depressive disorder, recurrent episode, moderate (H) Major depressive disorder, recurrent episode, moderate documented in this encounter Additional Health Concerns Assessment Noted Time PHQ-9 Depression Total Score: 22 10/14/ 023 12:40 PM COUNCIL MEMBER documented as of this encounter Care Teams Warp Splitter Relationship Specialty [place] [address] [place] [address] [place] [address] PCP - General 01/15/02 Mehreen Scott MD [address] 100 [place] [phone] plant and equipment worker 12/15/19 [place] [address] [place] [address] [place] [address] Assigned PCP 02/22/21 Prema Hitchcock PA-C [address] [facility] [place] [address] Assigned Surgical Provider 11/04/21 Chidi Puckett MD [address] [place] [address] Assigned Sleep Provider 02/17/22 10/31/23 Harriet Lindsay Personal Advocate & Liaison (PAL) 06/17/22 Aisha Murdock PA-C [facility] [address] [facility] [place] [address] Assigned Neuroscience Provider 06/08/22 11/28/23 Lavern Pope MD [address] [facility] [address] [place] [address] Cardiovascular Disease 11/11/22 Lavern Pope MD [address] [facility] [address] [place] [address] Assigned Heart and Vascular Provider 11/16/22 Elmer Paul MD [address] [place] [address] Allergy & Immunology 02/17/23 Elmer Paul MD [address], [address] [place] [address] Assigned Allergy Provider 04/26/23 Batool Torres, ZENOBIA [address] [facility] [place] [address] Nurse Practitioner Pulmonary Disease 08/11/23 documented as of this encounter
--- OUTSIDE RECORDS SUMMARY | 2023-12-29 23:08 | XMS_ITS | Encounter Summary ---
Author Name Unknown Organization [facility] Address [address] [place] [address] Care Team Providers Care Drum Carrier Name Role Phone Caery Vuong MD Primary Care Provider [phone] Mehreen Scott MD Unavailable [phone] Carey Vuong MD Unavailable Prema Hitchcock PA-C Unavailable Chidi Puckett MD Unavai lable Harriet Lindsay Unavailable Unavailable Aisha Murdock PA-C Unavailable [phone] Lavern Pope MD Unavailable [phone] Lavern Pope MD Unavailable [phone] Elmer Paul MD Unavailable [phone] Elmer Paul MD Unavailable [phone] Batool Torres NP Unavailable [phone] Reason for Visit * Reason Comments Medication Refill Encounter Details Date Type Department Care Team (Late st Contact Info) Description 10/08/2023 [facility] [address] [place] [address] [address] [place] [address] Carey Vuong MD [address] [facility] [place] [address] Medication Refill Social History Tobacco Use Types [...] How often do you attend [facility] or religion services? More than 4 times per year [...] Answer Date Recorded PHQ-2 Score 2 09/23/2023 [facility] [place] of Occupat ional Health - Occupational Stress [...] Sex Assigned at Female 12/12/2019 6:30 PM PROPAGATOR Gender Identity Female 12/12/2019 6:30 PM PROPAGATOR Sexual Orientation Straight 04/04/2021 12 :18 PM CDT Travel History Travel Start Travel End [place] 12/06/2023 12/12/2023 documented as of this encounter Miscellaneous Notes * Telephone Encounter - Harriet Lindsay 10/10/2023 8:19 AM CST Pt messaged in again about this refill. Harriet Lindsay, EMT at 8:20 AM on October 10, 2023 [facility] Health Guide [phone] AGATOR documented in this encounter Plan of Treatment Upcoming Encounters Date Type Department Care Team (Late st Contact Info) Description 03/19/2024 3:30 PM CDT Office Visit [facility] [address] [facility] [address] [place] [phone] Elmer Paul MD [address] [facility] [address] [place] [address] 04/16/2024 8:30 AM CDT Lab [facility] [address] [facility] [address] [place] [phone] 04/20/2024 8:45 AM CDT Office Visit [facility] [address] [facility] [address] [place] [phone] Lavern Pope MD [address] [facility] [address] [place], [place] [address] documented as of this encounter Visit Diagnoses Diagnosis Major depressive disorder, recurrent episode, moderate (H) Major depressive disorder, recurrent episode, moderate documented in this encounter Additional Health Concerns Assessment Noted Time PHQ-9 Depression Total Score: 7 09/23/20 23 4:13 PM CDT documented as of this encounter Care Teams Drum Carrier Relationship Specialty Start Date End Date Carey Vuong MD [address] [facility] [place] [address] PCP - General 01/15/02 Mehreen Scott MD [address] [place] [phone] international relations professor 12/15/19 Carey Vuong MD [address] [facility] [place] [address] Assigned PCP 02/22/21 Prema Hitchcock PA-C [address] [place] [address] Assigned Surgical Provider 11/04/21 Chidi Puckett MD [address] [place], [place] [address] Assigned Sleep Provider 02/17/22 10/31/23 Harriet Lindsay Personal Advocate & Liaison (PAL) 06/17/22 Aisha Murdock PA-C [facility] [address] [place] [address] Assigned Neuroscience Provider 06/08/22 11/28/23 Lavern Pope MD [address] [facility] [address] [facility] [address] [place], [place] [address] Cardiovascular Disease 11/11/22 Lavern Pope MD [address] [facility] [address] [facility] [address] [place], [place] [address] Assigned Heart and Vascular Provider 11/16/22 Elmer Paul MD [address] [place], [place] [address] Allergy & Immunology 02/17/23 Elmer Paul MD [address], [address] [place] [address] Assigned Allergy Provider 04/26/23 Batool Torres NP [address] [place] [address] Nurse Practitioner Pulmonary Disease 08/11/23 documented as of this encounter
--- OUTSIDE RECORDS SUMMARY | 2023-12-29 23:08 | XMS_ITS | Encounter Summary ---
Author Name Unknown Organization [facility] Address [address] [place] [address] Care Team Providers Care Jewel Oliving Machine Operator Name Role Phone Carey Vuong MD Primary Care Provider [phone] Mehreen Scott MD Unavailable Carey Vuong MD Unavailable Prema Hitchcock PA-C Unavailable Chidi Puckett MD Unavai lable Harriet Lindsay Unavailable Unavailable Aisha Murdock PA-C Unavailable Lavern Pope MD Unavailable Lavern Pope MD Unavailable Elmer Paul MD Unavailable [phone] Elmer Paul MD Unavailable [phone] Batool Torres NP Unavailable Encounter Details Date Type Department Care Team (Late st Contact Info) Description 10/10/2023 [facility] [address] [place] [address] Carey Vuong MD [address] [facility] [place] [address] Class 1 obesity due to excess calories with serious comorbidity and body mass index (BMI) of 31.0 to 31.9 in adult (Primary Dx); Major depressive disorder, recurrent episode, moderate (H); Class 2 obesity due to excess calories without serious comorbidity with body mass index (BMI) of 36.0 to 36.9 in adult; Abdominal cramping Social History Tobacco Use Types Packs/Day Years [...] 06/17/2022 How often do you attend [facility] or restorationist services? More than 4 times per year 06/17/2022 Do you belong to any clubs o r organizations such as uatsdin groups, unions, fraternal or athletic groups, or [...] Answer Date Recorded PHQ-2 Score 6 10/14/2023 [facility] of Occupat ional Health [...] Sex Assigned at Female 12/12/2019 6:30 PM CRACKING UNIT OPERATOR Gender Identity Female 12/12/2019 6:30 PM CRACKING UNIT OPERATOR Sexual Orientation Straight 04/04/2021 12 :18 PM CDT Travel History Travel Start Travel End [place] 12/06/2023 12/12/2023 documented as of this encounter Miscellaneous Notes * Telephone Encounter - Virginia Rich RN - 10/16/2023 9:50 AM CST See patient's MyChart message - Patient would like to try the hyoscyamine medication - Per UptoDate: Hyoscyamine dosing information for adults with Gastrointestinal disorders: Oral: - Immediate release: 0.125 to 0.25 mg every 4 to 8 hours or as needed; maximum: 1.5 mg/day. - Extended release: 0.375 to 0.75 mg every 12 hours or 0.375 mg every 8 hours; maximum: 1.5 mg/day. - Pended Hyoscyamine ER 0.375 mg every [address] Vuong, please review and order as appropriate. Virginia Florez RN [facility] KING UNIT OPERATOR * Addendum Note - Virginia Rich RN - 10/10/2023 8:14 AM CSTAddended by: VIRGINIA RICH on: 10/16/2023 10:01 AM Modules accepted: Orders KING UNIT OPERATOR * Addendum Note - Carey Vuong MD - 10/10/2023 8:14 AM CSTAddended by: CAREY VUONG on: 10/17/2023 11:53 AM Modules accepted: Orders KING UNIT OPERATOR documented in this encounter Plan of Treatment Upcoming Encounters Date Type Department Care Team (Late st Contact Info) Description 03/19/2024 3:30 PM CDT Office Visit [facility] Specialty [address] [place] [address] Elmer Paul MD [address] [facility] [address] [place] [address] 04/16/2024 8:30 AM CDT Lab [facility] [address] [facility] [address] [place] [phone] 04/20/2024 8:45 AM CDT Office Visit [facility] [address] [facility] [address] [place] [phone] Lavern Pope MD [address] [facility] [address] [place] [address] documented as of this encounter Visit Diagnoses Diagnosis Class 1 obesity due to excess calories with serious comorbidity and body mass index (BMI) of 31.0 to 31.9 in adult- Primary Major depressive disorder, recurrent episode, moderate (H) Major depressive disorder, recurrent episode, moderate Class 2 obesity due to excess calories without serious comorbidity with body mass index (BMI) of 36.0 to 36.9 in adult Abdominal cramping Abdominal pain, unspecified site documented in this encounter Additional Health Concerns Assessment Noted Time PHQ-9 Depression Total Score: 7 09/23/20 23 4:13 PM CDT documented as of this encounter Care Teams Jewel Oliving Machine Operator Relationship Specialty Start Date End Date Carey Vuong MD [address] [place] [address] [place] [address] PCP - General 01/15/02 Mehreen Scott MD [address] [facility] [address] [place] [phone] entry processor 12/15/19 [place] [address] [place] [address] [place] [address] Assigned PCP 02/22/21 Prema Hitchcock PA-C [address] [place] [address] Assigned Surgical Provider 11/04/21 Chidi Puckett MD [address] [place] [address] Assigned Sleep Provider 02/17/22 10/31/23 Harriet Lindsay Personal Advocate & Liaison (PAL) 06/17/22 Aisha Murdock PA-C [facility] 6545 [facility] [place] [address] Assigned Neuroscience Provider 06/08/22 11/28/23 Lavern Pope MD [address] [facility] [address] [place] [address] Cardiovascular Disease 11/11/22 Lavern Pope MD [address] [facility] [address] [place] [address] Assigned Heart and Vascular Provider 11/16/22 Elmer Paul MD [address], [address] [place] [address] Allergy & Immunology 02/17/23 Elmer Paul MD [address] [facility] [address], [address] [place] [address] Assigned Allergy Provider 04/26/23 Batool Torres, CAFETERIA SERVER 1655 [facility] [place] [address] Nurse Practitioner Pulmonary Disease 08/11/23 documented as of this encounter
--- OUTSIDE RECORDS SUMMARY | 2023-12-29 23:08 | XMS_ITS | Encounter Summary ---
Author Name Unknown Organization [facility] Address [address] [place] [address] Care Team Providers Care Automobile Bumper Straightener Name Role Phone Carey Vuong MD Primary Care Provider [phone] Mehreen Scott MD Unavailable Carey Vuong MD Unavailable Prema Hitchcock PA-C Unavailable [phone] Chidi Puckett MD Unahenryi lable Harriet Lindsay Unavailable Unavailable Aisha Murdock PA-C Unavailable Lavern Pope MD Unavailable [phone] Lavern Pope MD Unavailable Elmer Paul MD Unavailable [phone] Elmer Paul MD Unavailable [phone] Batool Torres NP Unavailable Marlene Benoit NP Unavailable [phone] Encounter Details Date Type Department Care Team (Latest Contact Info) Description 10/29/2023 Travel Social History Tobacco Use Types Packs/Day [...] 06/17/2022 How often do you attend [facility] or druze services? More than 4 times per year 06/17/2022 Do you belong to any clubs o r organizations such as roman catholic groups, unions, fraternal or athletic groups, or [...] Answer Date Recorded PHQ-2 Score 6 10/14/2023 [facility] Questionnaire Answer Date Recorded [...] Sex Assigned at Female 12/12/2019 6:30 PM PSYCHIATRIC AIDE Gender Identity Female 12/12/2019 6:30 PM PSYCHIATRIC AIDE Sexual Orientation Straight 04/04/2021 12 :18 PM CDT Travel History Travel Start Travel End [place] 12/06/2023 12/12/2023 documented as of this encounter Plan of Treatment Upcoming Encounters Date Type Department Care Team (Late st Contact Info) Description 03/19/2024 3:30 PM CDT Office [facility] [address] [place] [address] [address] [place] [phone] Elmer Paul MD [address] , [address] [place] [address] 04/16/2024 8:30 AM CDT Lab [facility] [address] [facility] [address] [place] [phone] 04/20/2024 8:45 AM CDT Office Visit [facility] [place] [address] [facility] [address] [place] [phone] Lavern Pope MD [address] [facility] [address] [place] [id number] documented as of this encounter Visit Diagnoses Not on filedocumented in this encounter Additional Health Concerns Assessment Noted Time PHQ-9 Depression Total Score: 22 023 12:40 PM PSYCHIATRIC AIDE documented as of this encounter Care Teams Automobile Bumper Straightener Relationship Specialty Start Date End Date Carey Vuong MD [address] [facility] [place] [address] PCP - General 01/15/02 Mehreen Scott MD [address] [facility] 100 [place] [phone] cna per diem 12/15/19 Carey Vuong MD [address] [facility] [place] [address] Assigned PCP 02/22/21 Prema Hitchcock PA-C [address] [facility] [place] [address] Assigned Surgical Provider 11/04/21 Chidi Puckett MD [address] [place], [place] [address] Assigned Sleep Provider 02/17/22 10/31/23 Harriet Lindsay Personal Advocate & Liaison (PAL) 06/17/22 Aisha Murdock PA-C [facility] [address] [place] [address] Assigned Neuroscience Provider 06/08/22 11/28/23 Lavern Pope MD [address] [facility] [address] [place], [place] [address] Cardiovascular Disease 11/11/22 Lavern Pope MD [address] [facility] [address] [facility] [address] [place], [place] [address] Assigned Heart and Vascular Provider 11/16/22 Elmer Paul MD [address] [place], [place] [address] Allergy & Immunology 02/17/23 Elmer Paul MD [address] [place], [place] [address] Assigned Allergy Provider 04/26/23 Batool Torres, STRAW HAT PRESSER [address]55 [place] [address] Nurse Practitioner Pulmonary Disease 08/11/23 Marlene Benoit, ZENOBIA [address] [place] [address] Nurse Practitioner Nurse Practitioner 10/29/23 documented as of this encounter
--- OUTSIDE RECORDS SUMMARY | 2023-12-29 23:08 | XMS_ITS | Encounter Summary ---
Author Name Unknown Organization [facility] Address [address] [place] [address] Care Team Providers Care Bender Helper Name Role Phone Carey Vuong MD Primary Care Provider [phone] Mehreen Scott MD Unavailable [phone] Carey Vuong MD Unavailable Prema Hitchcock PA-C Unavailable Chidi Puckett MD Unavai lable Harriet Lindsay Unavailable Unavailable Aisha Murdock PA-C Unavailable [phone] Lavern Pope MD Unavailable [phone] Lavern Pope MD Unavailable Elmer Paul MD Unavailable [phone] Elmer Paul MD Unavailable [phone] Batool Torres NP Unavailable Reason for Visit * Reason Onset Date Comments update 10/16/2023 Encounter Details Date Type Department Care Team (Late st Contact Info) Description 10/16/2023 [facility] [address] [place] [phone] Carey Vuong MD [address] [facility] [place] [address] update Social History Tobacco Use Types Packs/Day Years [...] 06/17/2022 How often do you attend [facility] or sikh services? More than 4 times per year 06/17/2022 Do you belong to any clubs o r organizations such as worship groups, unions, fraternal or athletic groups, or [...] Answer Date Recorded PHQ-2 Score 6 10/14/2023 [facility] [place] of Occupat ional Health - Occupational Stress [...] Sex Assigned at Female 12/12/2019 6:30 PM RELATIONSHIP ADVISOR Gender Identity Female 12/12/2019 6:30 PM RELATIONSHIP ADVISOR Sexual Orientation Straight 04/04/2021 12 :18 PM CDT Travel History Travel Start Travel End [place] 12/06/2023 12/12/2023 documented as of this encounter Miscellaneous Notes * Telephone Encounter - Sukhjinder Lion RN - 10/17/2023 2:22 PM RELATIONSHIP ADVISOR Call placed to pt Pt is feeling frustrated with her current situations Pt feels like she is in a holding patten Pt is okay waiting until her scheduled appt with her PCP Pt is grateful for the call and grateful for her PCP Routing to PCP as BAILEY Prajapati. Amisha, RN on 10/17/2023 at 2:42 PM TIONSHIP ADVISOR * Telephone Encounter - Carey Vuong MD - 10/17/2023 1:52 PM RELATIONSHIP ADVISOR Will send to PAL4, but unsure if in clinic today. Also sending to triage. Need to assess is this frustration. Last phq9 did not show suicidality. Pls call her to discuss. She sounds very frustrated. Yeast infection likely due to antibiotics. Should go away with treatments and be done. I really think she should try the hyoscyamine. Anything that could help with the cramps could help her feel better. Sounds like she is feeling hopeless but by next Friday she could be already feeling better with yeast and BV treatment and hyoscyamine trial. Does she want to see me next week? Reassure her this will get better, we'll find something for the gut and she will be able to get the weight loss medication. Is she OK? Carey Vuong M.D. TIONSHIP ADVISOR documented in this encounter Plan of Treatment Upcoming Encounters Date Type Department Care Team (Late st Contact Info) Description 03/19/2024 3:30 PM CDT Office Visit [facility] [address] [place] [phone] Elmer Paul MD [address] [place] [address] [address] [place] [address] 04/16/2024 8:30 AM CDT Lab [facility] [address] [place] [phone] 04/20/2024 8:45 AM CDT Office Visit [facility] [address] [facility] [address] [place] [phone] Lavern Pope MD [address] [facility] [address] [place] [id number] documented as of this encounter Visit Diagnoses Not on filedocumented in this encounter Additional Health Concerns Assessment Noted Time PHQ-9 Depression Total Score: 22 023 12:40 PM RELATIONSHIP ADVISOR documented as of this encounter Care Teams Bender Helper Relationship Specialty [place] [address] [place] [address] [place] [address] PCP - General 01/15/02 Mehreen Scott MD [address] [facility] 100 [place] [address] invasive cardiologist 12/15/19 [place] [address] [place] [address] [place] [address] Assigned PCP 02/22/21 Prema Hitchcock PA-C [address] [facility] [place] [address] Assigned Surgical Provider 11/04/21 Chidi Puckett MD [address] [facility] 106 [place] [address] Assigned Sleep Provider 02/17/22 10/31/23 Harriet Lindsay Personal Advocate & Liaison (PAL) 06/17/22 Aisha Murdock PA-C [facility] [address] [place] [address] Assigned Neuroscience Provider 06/08/22 11/28/23 Lavern Pope MD [address] [place] [address] Cardiovascular Disease 11/11/22 Lavern Pope MD [address] [place] [address] Assigned Heart and Vascular Provider 11/16/22 Elmer Paul MD [address], [address] [place] [address] Allergy & Immunology 02/17/23 Elmer Paul MD [address], [address] [place] [id number] Assigned Allergy Provider 04/26/23 Batool Torres, DIAMOND SAW OPERATOR [address] [place] [address] Nurse Practitioner Pulmonary Disease 08/11/23 documented as of this encounter
--- OUTSIDE RECORDS SUMMARY | 2023-12-29 23:08 | XMS_ITS | Encounter Summary ---
Author Name Unknown Organization [facility] Address [address] [place] [address] Care Team Providers Care Care Worker Name Role Phone Carey Vuong MD Primary Care Provider [phone] Mehreen Scott MD Unavailable [phone] Carey Vuong MD Unavailable Prema Hitchcock PA-C Unavailable [phone] Chidi Puckett MD Unavai lable Harriet Lindsay Unavailable Unavailable Aisha Murdock PA-C Unavailable Lavern Pope MD Unavailable [phone] Lavern Pope MD Unavailable Elmer Paul MD Unavailable [phone] Elmer Paul MD Unavailable [phone] Batool Torres NP Unavailable [phone] Reason for Visit * Reason Onset Date Comments Depression 10/14/2023 Encounter Details Date Type Department Care Team (Late st Contact Info) Description 10/14/2023 [facility] [address] [place] [phone] Carey Vuong MD [address] [facility] [place] [address] Depression Social History Tobacco Use Types Packs/Day Years [...] week 06/17/2022 How often do you attend [facility] or zoroastrianism services? More than 4 times per year 06/17/2022 Do you belong to any clubs o r organizations such as methodist groups, unions, fraternal or athletic groups, or [...] Answer Date Recorded PHQ-2 Score 6 10/14/2023 [facility] [place] of Occupat ional Health - Occupational Stress [...] Sex Assigned at Female 12/12/2019 6:30 PM DIRECT CHILL CASTING OPERATOR Gender Identity Female 12/12/2019 6:30 PM DIRECT CHILL CASTING OPERATOR Sexual Orientation Straight 04/04/2021 12 :18 PM CDT Travel History Travel Start Travel End [place] 12/06/2023 12/12/2023 documented as of this encounter Plan of Treatment Upcoming Encounters Date Type Department Care Team (Late st Contact Info) Description 03/19/2024 3:30 PM CDT Office [facility] [place] [id number] [facility] [address] [place] [phone] Elmer Paul MD [address] [facility] [address] [place] [address] 04/16/2024 8:30 AM CDT Lab [facility] [address] [facility] [address] [place] [phone] 04/20/2024 8:45 AM CDT Office Visit [facility] [address] [facility] [address] [place] [phone] Lavern Pope MD [address] [facility] [address] [place] [address] documented as of this encounter Visit Diagnoses Not on filedocumented in this encounter Additional Health Concerns Assessment Noted Time PHQ-9 Depression Total Score: 22 023 12:40 PM DIRECT CHILL CASTING OPERATOR documented as of this encounter Care Teams Care Worker Relationship Specialty Start Date End Date Carey Vuong MD [address] [place] [address] [place] [address] PCP - General 01/15/02 Mehreen Scott MD [address] [facility] 100 [place] [phone] recapper 12/15/19 Carey Vuong MD [address] [place] [address] [place] [address] Assigned PCP 02/22/21 Prema Hitchcock PA-C [address] [place] [address] Assigned Surgical Provider 11/04/21 Chidi Puckett MD [address] [place] [address] [place] [address] Assigned Sleep Provider 02/17/22 10/31/23 Harriet Lindsay Personal Advocate & Liaison (PAL) 06/17/22 Aisha Murdock PA-C [facility] [address] [place] [address] Assigned Neuroscience Provider 06/08/22 11/28/23 Lavern Pope MD [address] [facility] [address] [place] [id number] Cardiovascular Disease 11/11/22 Lavern Pope MD [address] [place], [place] [address] Assigned Heart and Vascular Provider 11/16/22 Elmer Paul MD [address], [address] [place] [address] Allergy & Immunology 02/17/23 Elmer Paul MD [address], [address] [place], [place] [address] Assigned Allergy Provider 04/26/23 Batool Torres, GRAIN ELEVATOR OPERATOR [address] [place] [address] Nurse Practitioner Pulmonary Disease 08/11/23 documented as of this encounter
--- OUTSIDE RECORDS SUMMARY | 2023-12-29 23:09 | XMS_ITS | Encounter Summary ---
Author Name Unknown Organization [facility] Address [address] [place] [address] Care Team Providers Care Assignment Desk Assistant Name Role Phone Carey Vuong MD Primary Care Provider [phone] Mehreen Scott MD Unavailable Carey Vuong MD Unavailable Prema Hitchcock PA-C Unavailable [phone] Chidi Puckett MD Unavai lable Harriet Lindsay Unavailable Unavailable Aisha Murdock PA-C Unavailable Lavern Pope MD Unavailable [phone] Lavern Pope MD Unavailable Elmer Paul MD Unavailable [phone] Elmer Palu MD Unavailable [phone] Batool Torres NP Unavailable [phone] Encounter Details Date Type Department Care Team (Late st Contact Info) Description 10/03/2023 [facility] [address] [place] [phone] Angélica Harriet L Social History Tobacco Use [...] week 06/17/2022 How often do you attend [facility] or yazidi services? More than 4 times per year 06/17/2022 Do you belong to any clubs o r organizations such as jewish groups, unions, fraternal or athletic groups, or [...] Answer Date Recorded PHQ-2 Score 2 09/23/2023 [facility] of Occupat ional Health - Occupational [...] Sex Assigned at Female 12/12/2019 6:30 PM INSECTICIDE EXPERT Gender Identity Female 12/12/2019 6:30 PM INSECTICIDE EXPERT Sexual Orientation Straight 04/04/2021 12 :18 PM CDT Travel History Travel Start Travel End [place] 12/06/2023 12/12/2023 COVID-19 Exposure Response Date Recorded In the last 10 days, have yo u been in contact with someone who was confirmed or suspected to have Coronavirus/COVID-19? No / Unsure 09/04/2023 10:07 AM CDT documented as of this encounter Plan of Treatment Upcoming Encounters Date Type Department Care Team (Late st Contact Info) Description 03/19/2024 3:30 PM CDT Office Visit [facility] [address] [facility] [address] [place] [phone] Elmer Paul MD [address] [facility] 200 [place] [address] 04/16/2024 8:30 AM CDT Lab [facility] [address] [facility] [address] [place] [phone] 04/20/2024 8:45 AM CDT Office Visit [facility] [address] [facility] [address] [place] [phone] Lavern Pope MD [address] [facility] [address] [place] [phone] documented as of this encounter Visit Diagnoses Not on filedocumented in this encounter Additional Health Concerns Assessment Noted Time PHQ-9 Depression Total Score: 7 09/23/20 23 4:13 PM CDT documented as of this encounter Care Teams Assignment Desk Assistant Relationship Specialty Start Date End Date Carey Vuong MD [address] [place] [address] [place] [address] PCP - General 01/15/02 Mehreen Scott MD [address] [facility] 100 [place] [phone] defense travel administrator 12/15/19 Carey Vuong MD [address] [place] [address] [place] [address] Assigned PCP 02/22/21 Prema Hitchcock PA-C [address] [facility] [place] [address] Assigned Surgical Provider 11/04/21 Chidi Puckett MD [address] [place] [address] [place] [address] Assigned Sleep Provider 02/17/22 10/31/23 Harriet Lindsay Personal Advocate & Liaison (PAL) 06/17/22 Aisha Murdock PA-C [facility] [address] [place] [address] Assigned Neuroscience Provider 06/08/22 11/28/23 Lavern Pope MD [address] [facility] [address] [place] [address] Cardiovascular Disease 11/11/22 Lavern Pope MD [address] [facility] [address] [place] [address] Assigned Heart and Vascular Provider 11/16/22 Elmer Paul MD [address] [place] [address] Allergy & Immunology 02/17/23 Elmer Paul MD [address], [address] [place], [place] [address] Assigned Allergy Provider 04/26/23 Batool Torres, WHEEL PRESS CLERK [address] [place] [address] Nurse Practitioner Pulmonary Disease 08/11/23 documented as of this encounter
--- OUTSIDE RECORDS SUMMARY | 2023-12-29 23:09 | XMS_ITS | Encounter Summary ---
Author Name Unknown Organization [facility] Address [address] [place] [address] Care Team Providers Care Cloth Finishing Range Back Tender Name Role Phone Carey Vuong MD Primary Care Provider [phone] Mehreen Scott MD Unavailable [phone] Carey Vuong MD Unavailable [phone] Prema Hitchcock PA-C Unavailable [phone] Chidi Puckett MD Unavai lable Harriet Lindsay Unavailable Unavailable Aisha Murdock PA-C Unavailable [phone] Lavern Pope MD Unavailable [phone] Lavern Pope MD Unavailable [phone] Elmer Paul MD Unavailable [phone] Elmer Paul MD Unavailable [phone] Batool Torres NP Unavailable Encounter Details Date Type Department Care Team (Latest Contact Info) Description 09/10/2023 Travel Social History Tobacco Use Types Packs/Day [...] often do you attend [facility] or tenriism services? More than 4 times per year 06/17/2022 Do you belong to any clubs o r organizations such as congregational groups, unions, fraternal or athletic groups, or [...] more drinks on one occasion? Never 06/17/2022 Overall Financial Resource Strain (CARDIA) Answe r Date Recorded How hard is it for you to pa y for the very basics like food, housing, medical care, and heating? Not very hard 06/17/2022 PHQ-2 Answer Date Recorded PHQ-2 Total Score (Adult) - Positive if 3 or more points; Administer PHQ-9 if positive 0 07/04/2023 [facility] of Occupat ional Health - [...] exercise at this level? 50 min 06/17/2022 Hunger Vital Sign Answer Date Recorded Within the past 12 months, y ou worried that your food would run out before you got the money to buy more. Never true 06/17/20 22 Within the past 12 months, t he food you bought just didn't last and you didn't have money to get more. Never true 06/17/2022 PRAPARE - Transportation Answer Date Re corded In the past 12 months, has l ack of transportation kept you from medical appointments or from getting medications? No 05/31 In the past 12 months, has l ack of transportation kept you from meetings, work, or from getting things needed for daily living? No 06/17/2022 Housing Stability Vital Sign Answer Marco A e Recorded In the last 12 months, was t here a time when you were not able to pay the mortgage or rent on time? No 06/17/2022 In the last 12 months, how many places have you lived? 1 06/17/2022 In the last 12 months, was t here a time when you did not have a steady place to sleep or slept in a senior living (including now)? No 06/17/2022 Adolescent Education Answer Date Record ed Getting School Help Needed Not on file 09/03 Education Answer Date Recorded What is the highest level of school you have completed or the highest degree you have received? Some college, no degree 12/12/2019 Sex and Gender Information Value Date Recorded Sex Assigned at Female 12/12/2019 6:30 PM SPAR MACHINE OPERATOR HELPER Gender Identity Female 12/12/2019 6:30 PM SPAR MACHINE OPERATOR HELPER Sexual Orientation Straight 04/04/2021 12 :18 PM CDT Travel History Travel Start Travel End [place] 12/06/2023 12/12/2023 COVID-19 Exposure Response Date Recorded In the last 10 days, have yo u been in contact with someone who was confirmed or suspected to have Coronavirus/COVID-19? No / Unsure 09/04/2023 10:07 AM CDT documented as of this encounter Plan of Treatment Upcoming Encounters Date Type Department Care Team (Sabra st Contact Info) Description 03/19/2024 3:30 PM CDT Office Visit [address] [place] [phone] Elmer Paul MD [address] [place] [address] 04/16/2024 8:30 AM CDT Lab [facility] [address] [facility] [address] [place] [phone] 04/20/2024 8:45 AM CDT Office Visit [facility] [address] [facility] [address] [place] [phone] Lavern Pope MD [address] [facility] [address] [place] [id number] documented as of this encounter Visit Diagnoses Not on filedocumented in this encounter Additional Health Concerns Assessment Noted Time PHQ-9 Depression Total Score: 0 07/04/20 23 1:50 PM CDT documented as of this encounter Care Teams Cloth Finishing Range Back Tender Relationship Specialty Start Date End Date Carey Vuong MD [address] [place] [address] [place] [address] PCP - General 01/15/02 Mehreen Scott MD [address] [facility] 100 [place] [address] assistant professor of nursing 12/15/19 [place] [address] [place] [address] [place] [address] Assigned PCP 02/22/21 Prema Hitchcock PA-C [address] [place] [address] [address] Assigned Surgical Provider 11/04/21 PusalaChidi saenz MD [address] [facility] [address] [place], [place] [address] Assigned Sleep Provider 02/17/22 10/31/23 Harriet Lindsay Personal Advocate & Liaison (PAL) 06/17/22 Aisha Murdock PA-C [facility] [address] [facility] [place] [address] Assigned Neuroscience Provider 06/08/22 11/28/23 Lavern Pope MD [address] [facility] [address] [place], [place] [address] MD Cardiovascular Disease 11/11/22 Lavern Pope MD [address] [facility] [address] [place], [place] [address] Assigned Heart and Vascular Provider 11/16/22 Elmer Paul MD [address] [place], [place] [address] Allergy & Immunology 02/17/23 Elmer Paul MD [address] [place], [place] [address] Assigned Allergy Provider 04/26/23 Batool Torres, SPRING FORMER HAND [address] [facility] [place] [address] Nurse Practitioner Pulmonary Disease 08/11/23 documented as of this encounter
--- OUTSIDE RECORDS SUMMARY | 2023-12-29 23:09 | XMS_ITS | Encounter Summary ---
Author Name Unknown Organization [facility] Address [address] [place] [address] Care Team Providers Care Legal Office Administrator Name Role Phone Carey Vuong MD Primary Care Provider [phone] Mehreen Scott MD Unavailable [phone] Carey Vuong MD Unavailable [phone] Prema Hitchcock PA-C Unavailable [phone] Chidi Puckett MD Unavai lable Harriet Lindsay Unavailable Unavailable Aisha Murdock PA-C Unavailable [phone] Lavern Pope MD Unavailable [phone] Lavern Pope MD Unavailable [phone] Elmer Paul MD Unavailable [phone] Elmer Paul MD Unavailable [phone] Batool Torres NP Unavailable [phone] Reason for Visit * Reason Onset Date Comments Prior Auth - Medication 10/01/2023 Wegovy 0 .25mg/0.5ml soaj Encounter Details Date Type Department Care Team (Late st Contact Info) Description 10/01/2023 Telephone [facility] [address] [place] [phone] Carey Vuong MD [address] [facility] [place] [id number] Prior Auth - Medication (Wegovy 0.25mg/0.5ml soaj) Social History Tobacco Use [...] How often do you attend chur or buddhism services? More than 4 times per year [...] Answer Date Recorded PHQ-2 Score 2 09/23/2023 [facility] Occupat ional Health - Occupational Stress [...] at Female 12/12/2019 6:30 PM DIRECTOR OF PROCUREMENT Gender Identity Female 12/12/2019 6:30 PM DIRECTOR OF PROCUREMENT Sexual Orientation Straight 04/04/2021 12 :18 PM CDT Travel History Travel Start Travel End [place] 12/06/2023 12/12/2023 COVID-19 Exposure Response Date Recorded In the last 10 days, have ele ortiz been in contact with someone who was confirmed or suspected to have Coronavirus/COVID-19? No / Unsure 09/04/2023 10:07 AM CDT documented as of this encounter Miscellaneous Notes * Telephone Encounter - Mrak Hagan - 10/07/2023 11:20 AM CST Images from the original note were not included. Prior Authorization Approval Authorization Effective Date: 10/06/2023 Authorization Expiration Date: 02/04/2024 Medication: Wegovy 0.25mg/0.5ml soaj Approved Dose/Quantity: Reference #: [facility] - Expected CoPay: CoPay Card Available: [facility] Assistance Needed: Which Pharmacy is filling the prescription (Not needed for infusion/clinic administered): [facility] [place] [address] [facility]acy Notified: Yes Patient Notified: Yes Instructed pharmacy to notify patient when script is ready to worm picker/ship. CTOR OF PROCUREMENT * Telephone Encounter - Mark Hagan - 10/06/2023 1:35 PM CST Images from the original note were not included. Central Prior Authorization Team PA Initiation Medication: Wegovy 0.25mg/0.5ml soaj [facility] - Pharmacy Filling the Rx: [facility] [place] [address] [employer] Filling Pharmacy Filling Pharmacy Fax: Start Date: 10/06/2023 CTOR OF PROCUREMENT * Telephone Encounter - Ata Her - 10/01/2023 5:12 PM CDT Images from the original note were not included. [facility] Spec: [phone] [place]: [phone] documented in this encounter Plan of Treatment Upcoming Encounters Date Type Department Care Team (Late st Contact Info) Description 03/19/2024 3:30 PM CDT Office Visit [facility] [address] [facility] [address] [place] [phone] Elmer Paul MD [address] [facility] [address] [place] [id number] 04/16/2024 8:30 AM CDT Lab [facility] [address] [place] [phone] 04/20/2024 8:45 AM CDT Office Visit [facility] [address] [facility] [address] [place] [phone] Lavern Pope MD [address] [facility] [address] [place] [id number] documented as of this encounter Visit Diagnoses Not on filedocumented in this encounter Additional Health Concerns Assessment Noted Time PHQ-9 Depression Total Score: 7 09/23/20 23 4:13 PM CDT documented as of this encounter Care Teams Legal Office Administrator Relationship Specialty Start Date End Date Carey Vuong MD [address] [facility] [place] [address] PCP - General 01/15/02 Mehreen Scott MD [address] [place] [phone] finance specialist 12/15/19 Carey Vuong MD [address] [facility] [place] [address] Assigned PCP 02/22/21 Prema Hitchcock PA-C [address] [place] [address] Assigned Surgical Provider 11/04/21 Chidi Puckett MD [address] [place], [place] [address] Assigned Sleep Provider 02/17/22 10/31/23 Harriet Lindsay Personal Advocate & Liaison (PAL) 06/17/22 Aisha Murdock PA-C [facility] [address] [place] [address] Assigned Neuroscience Provider 06/08/22 11/28/23 Lavern Pope MD [address] [facility] [address] [facility] [address] [place], [place] [address] Cardiovascular Disease 11/11/22 Lavern Pope MD [address] [facility] [address] [place], [place] [address] Assigned Heart and Vascular Provider 11/16/22 Elmer Paul MD [address] [place] [address] Allergy & Immunology 02/17/23 Elmer Paul MD [address] [place] [address] Assigned Allergy Provider 04/26/23 Batool Torres NP [address] [place] [address] Nurse Practitioner Pulmonary Disease 08/11/23 documented as of this encounter
--- OUTSIDE RECORDS SUMMARY | 2023-12-29 23:09 | XMS_ITS | Encounter Summary ---
Author Name Unknown Organization [facility] Address [address] [place] [address] Care Team Providers Care Hot Wire Glass Tube Cutter Name Role Phone Carey Vuong MD Primary Care Provider [phone] Mehreen Scott MD Unavailable [phone] Carey Vuong MD Unavailable [phone] Prema Hitchcock PA-C Unavailable Chidi Puckett MD Unavai lable Harriet Lindsay Unavailable Unavailable Aisha Murdock PA-C Unavailable Lavern Pope MD Unavailable [phone] Lavern Pope MD Unavailable [phone] Elmer Paul MD Unavailable [phone] Elmer Paul MD Unavailable [phone] Batool Torres NP Unavailable Encounter Details Date Type Department Care Team (Latest Contact Info) Description 09/11/2023 Travel Social History Tobacco Use Types Packs/Day [...] often do you attend [facility] or hinduism services? More than 4 times per year [...] points; Administer PHQ-9 if positive 0 07/04/2023 [facility] Occupat ional Health [...] place to sleep or slept in a residential (including now)? No 06/17/2022 Adolescent Education Answer Date Record ed Getting School Help Needed Not on file 09/03 Education Answer Date Recorded What is the highest level of school you have completed or the highest degree you have received? Some college, no degree 12/12/2019 Sex and Gender Information Value Date Recorded Sex Assigned at Female 12/12/2019 6:30 PM [employer] Gender Identity Female 12/12/2019 6:30 PM [employer] Sexual Orientation Straight 04/04/2021 12 :18 PM CDT Travel History Travel Start Travel End [place] 12/06/2023 12/12/2023 COVID-19 Exposure Response Date Recorded In the last 10 days, have yo u been in contact with someone who was confirmed or suspected to have Coronavirus/COVID-19? No / Unsure 09/04/2023 10:07 AM CDT documented as of this encounter Plan of Treatment Upcoming Encounters Date Type Department Care Team (Sabra st Contact Info) Description 03/19/2024 3:30 PM CDT Office Visit [address] [place] [phone] Elmer Paul MD [address] [place] [address] 04/16/2024 8:30 AM CDT Lab [facility] [address] [facility] [address] [facility] [address] [place] [phone] 04/20/2024 8:45 AM CDT Office Visit [facility] [address] [facility] [address] [place] [phone] Lavern Pope MD [address] [facility] [address] [place] [phone] documented as of this encounter Visit Diagnoses Not on filedocumented in this encounter Additional Health Concerns Assessment Noted Time PHQ-9 Depression Total Score: 0 07/04/20 23 1:50 PM CDT documented as of this encounter Care Teams Hot Wire Glass Tube Cutter Relationship Specialty Start Date End Date Carey Vuong MD [address] [place] [address] [place] [address] PCP - General 01/15/02 Mehreen Scott MD [address] [facility] [address] [place] [phone] river expedition guide 12/15/19 [place] [address] [place] [address] [place] [address] Assigned PCP 02/22/21 Prema Hitchcock PA-C [address] [place] [address] Assigned Surgical Provider 11/04/21 PusalaChidi saenz MD [address] [facility] [address] [place], [place] [address] Assigned Sleep Provider 02/17/22 10/31/23 Harriet [place] Personal Advocate & Liaison (PAL) 06/17/22 Aisha Murdock PA-C [facility] [address] [facility] [place] [place] [address] Assigned Neuroscience Provider 06/08/22 11/28/23 Lavern Pope MD [address] [facility] [address] [place], [place] [address] MD Cardiovascular Disease 11/11/22 Lavern Pope MD [address] [facility] [address] [place], [place] [address] Assigned Heart and Vascular Provider 11/16/22 Elmer Paul MD [address] [place], [place] [address] Allergy & Immunology 02/17/23 Elmer Paul MD [address] [place], [place] [address] Assigned Allergy Provider 04/26/23 Batool Torres, HORTICULTURAL WORKER [address] [facility] [place] [address] Nurse Practitioner Pulmonary Disease 08/11/23 documented as of this encounter
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
--- OUTSIDE RECORDS SUMMARY | 2023-12-29 23:09 | XMS_ITS | Encounter Summary ---
Author Name Unknown Organization [place] Address [address] [place] [address] Care Team Providers Care Certified Physician Assistant Name Role Phone Carey Vuong MD Primary Care Provider [phone] Mehreen Scott MD Unavailable [phone] Carey Vuong MD Unavailable Prema Hitchcock PA-C Unavailable Chidi Puckett MD Unavai lable Harriet Lindsay Unavailable Unavailable Aisha Murdock PA-C Unavailable Lavern Pope MD Unavailable [phone] Lavern Pope MD Unavailable Elmer Paul MD Unavailable [phone] Elmer Paul MD Unavailable [phone] Batool Torres NP Unavailable [phone] Encounter Details Date Type Department Care Team (Latest Contact Info) Description 09/23/2023 Travel Social History Tobacco Use Types Packs/Day [...] 06/17/2022 How often do you attend [facility] or faith services? 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 No / Unsure 09/04/2023 10:07 AM CDT documented as of this encounter Plan of Treatment Upcoming Encounters Date Type Department Care Team (Late st Contact Info) Description 03/19/2024 3:30 PM CDT Office Visit [facility] [address] [facility] [address] [place] [phone] Elmer Paul MD [address] [place] [address] 04/16/2024 8:30 AM CDT Lab [facility] [address] [facility] [address] [place] [phone] 04/20/2024 8:45 AM CDT Office Visit [facility] [address] [facility] [address] [place] [phone] Lavern Pope MD [address] [facility] [address] [place] [phone] documented as of this encounter Visit Diagnoses Not on filedocumented in this encounter Additional Health Concerns Assessment Noted Time PHQ-9 Depression Total Score: 7 09/23/20 23 4:13 PM CDT documented as of this encounter Care Teams Certified Physician Assistant Relationship Specialty Start Date End Date Carey Vuong MD [address] [place] [address] [place] [address] PCP - General 01/15/02 Mehreen Scott MD [address] [facility] [address] [place] [phone] fibre composite technician 12/15/19 Carey Vuong MD [address] [place] [address] [place] [address] Assigned PCP 02/22/21 Prema Hitchcock PA-C [address] [place], [place] [address] Assigned Surgical Provider 11/04/21 Chidi Puckett MD [address] [place] [address] Assigned Sleep Provider 02/17/22 10/31/23 Harriet Lindsay Personal Advocate & Liaison (PAL) 06/17/22 Aisha Murdock PA-C [facility] [address] [place] [address] Assigned Neuroscience Provider 06/08/22 11/28/23 Lavern Pope MD [address] [facility] [address] [place], [place] [phone] MD Cardiovascular Disease 11/11/22 Lavern Pope MD [address] [facility] [address] [place], [place] [address] Assigned Heart and Vascular Provider 11/16/22 Elmer Paul MD [address] [place] [address] Allergy & Immunology 02/17/23 Elmer Paul MD [address] [place] [address] Assigned Allergy Provider 04/26/23 Batool Torres NP [address] [facility] [place] [address] Nurse Practitioner Pulmonary Disease 08/11/23 documented as of this encounter
--- OUTSIDE RECORDS SUMMARY | 2023-12-29 23:09 | XMS_ITS | Encounter Summary ---
Author Name Unknown Organization [place] Address [address] [place] [address] Care Team Providers Care Design Center Consultant Name Role Phone Carey Vuong MD Primary Care Provider [phone] Mehreen Scott MD Unavailable [phone] Carey Vuong MD Unavailable [phone] Prema Hitchcock PA-C Unavailable Chidi Puckett MD Unavai lable Harriet Lindsay Unavailable Unavailable Aisha Murdock PA-C Unavailable Lavern Pope MD Unavailable [phone] Lavern Pope MD Unavailable Elmer Paul MD Unavailable [phone] Elmer Paul MD Unavailable [phone] Batool Torres NP Unavailable [phone] Encounter Details Date Type Department Care Team (Latest Contact Info) Description 09/17/2023 Travel Social History Tobacco Use Types Packs/Day [...] often do you attend [facility] or moravian services? More than 4 times per year 06/17/2022 Do you belong to any clubs o r organizations such as orthodoxy groups, unions, fraternal or athletic groups, or [...] points; Administer PHQ-9 if positive 0 07/04/2023 [facility] of Occupat ional Health - [...] place to sleep or slept in a alf (including now)? No 06/17/2022 Adolescent Education Answer Date Record ed Getting School Help Needed Not on file 09/03 Education Answer Date Recorded What is the highest level of school you have completed or the highest degree you have received? 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 Sexual Orientation Straight 04/04/2021 12 :18 PM [...] Description 03/19/2024 3:30 PM CDT Office Visit [address] [place] [address] Elmer Paul MD [address] , [address] [place] [address] 04/16/2024 8:30 AM CDT Lab [facility] [address] [facility] [address] [place] [phone] 04/20/2024 8:45 AM CDT Office Visit [facility] [address] [facility] [address] [place] [phone] Lavern Pope MD [address] [facility] [address] [place] [phone] documented as of this encounter Visit Diagnoses Not on filedocumented in this encounter Additional Health Concerns Assessment Noted Time PHQ-9 Depression Total Score: 0 07/04/20 23 1:50 PM CDT documented as of this encounter Care Teams Design Center Consultant Relationship Specialty Start Date End Date Carey Vuong MD [address] [place] [address] [place] [address] PCP - General 01/15/02 Mehreen Scott MD [address] [facility] [address] [place] [address] public service director 12/15/19 [place] [address] [place] [address] [place] [address] Assigned PCP 02/22/21 Prema Hitchcock PA-C [address] [place] [address] [address] Assigned Surgical Provider 11/04/21 PusalaChidi saenz MD [address] [facility] [address] [place], [place] [address] Assigned Sleep Provider 02/17/22 10/31/23 Harriet Lindsay Personal Advocate & Liaison (PAL) 06/17/22 Aisha Murdock PA-C [facility] [address] [facility] [address] Assigned Neuroscience Provider 06/08/22 11/28/23 Lavern Pope MD [address] [facility] [address] [place], [place] [address] MD Cardiovascular Disease 11/11/22 Lavern Pope MD [address] [facility] [address] [place], [place] [address] Assigned Heart and Vascular Provider 11/16/22 Elmer Paul MD [address], [address] [place], [place] [address] Allergy & Immunology 02/17/23 Elmer Paul MD [address], [address] [place], [place] [address] Assigned Allergy Provider 04/26/23 Batool Torres, PROJECT CONSULTANT [address] [facility] [place] [place] [address] Nurse Practitioner Pulmonary Disease 08/11/23 documented as of this encounter
--- OUTSIDE RECORDS SUMMARY | 2023-12-29 23:09 | XMS_ITS | Encounter Summary ---
Author Name Unknown Organization [place] Address [address] [place] [address] Care Team Providers Care Line Repairer Name Role Phone Carey Vuong MD Primary Care Provider [phone] Mehreen Scott MD Unavailable [phone] Carey Vuong MD Unavailable [phone] Prema Hitchcock PA-C Unavailable Chidi Puckett MD Unava lable Harriet Lindsay Unavailable Unavailable Aisha Murdock PA-C Unavailable [phone] Lavern Pope MD Unavailable [phone] Lavern Pope MD Unavailable [phone] Elmer Paul MD Unavailable [phone] Elmer Palu MD Unavailable [phone] Batool Torres NP Unavailable Encounter Details Date Type Department Care Team (Late st Contact Info) Description 09/17/2023 8:20 AM CDT Lab [facility] [address] [place] [address] Aftercare following joint replacement (Primary Dx); Knee pain; Osteoarthritis Social History Tobacco Use Types Packs/Day Years [...] How often do you attend [facility] or baptism services? More than 4 times per year 06/17/2022 Do you belong to any clubs o r organizations such as shinto groups, unions, fraternal or athletic groups, or [...] Date Recorded PHQ-2 Score 2 09/23/2023 [facility] of Occupat ional Health - Occupational Stress [...] Sex Assigned at Female 12/12/2019 6:30 PM LAW ENFORCEMENT INSTRUCTOR Gender Identity Female 12/12/2019 6:30 PM LAW ENFORCEMENT INSTRUCTOR Sexual Orientation Straight 04/04/2021 12 :18 PM CDT Travel History Travel Start Travel End [place] 12/06/2023 12/12/2023 COVID-19 Exposure Response Date Recorded In the last 10 days, have yo u been in contact with someone who was confirmed or suspected to have Coronavirus/COVID-19? No / Unsure 09/04/2023 10:07 AM CDT documented as of this encounter Plan of Treatment Upcoming Encounters Date Type Department Care Team (Late st Contact Info) Description 03/19/2024 3:30 PM CDT Office Visit [facility] [address] [facility] [address] [place] [phone] Elmer Paul MD [address] [place] [address] 04/16/2024 8:30 AM CDT Lab [facility] [address] [facility] [address] [place] [phone] 04/20/2024 8:45 AM CDT Office Visit [facility] [address] [facility] [address] [place] [phone] Lavern Pope MD [address] [facility] [address] [place] [address] documented as of this encounter Procedures Procedure Name Priority Date/Time Associated Diagnosis Comments ERYTHROCYTE SEDIMENTATION RATE AUTO Routine 09/17/2023 8:38 AM CDT Aftercare following joint replacement Knee pain Osteoarthritis CRP INFLAMMATION Routine 09/17/2023 8:38 AM CDT Aftercare following joint replacement Knee pain Osteoarthritis documented in this encounter Results * Erythrocyte sedimentation rate auto (09/17/2023 8:38 AM CDT) Erythrocyte Sedimentation Rate 10 0 - 20 mm/hr 09/17/2023 9:22 AM CDT LABORATORY Blood STRUCTURE OF RIGHT UPPER LIMB / Unknown Venipuncture / Unknown 09/17/2023 8:38 AM CDT 09/17/2023 8:38 AM CDT Batool Monteiro PA-C LAB - BLOOD OR DERABLES LABORATORY [facility] [address] Lab (1st floor, no room number) [place] [address], [facility] [phone] * CRP inflammation (09/17/2023 8:38 AM CDT) CRP Inflammation <3.00 <5.00 mg/L 09/17/20 9:01 AM CDT LABORATORY Blood STRUCTURE OF RIGHT UPPER LIMB / Unknown Venipuncture / Unknown 09/17/2023 8:38 AM CDT 09/17/2023 8:38 AM CDT Batool Monteiro PA-C LAB - BLOOD OR DERABLES LABORATORY [facility] [address] [facility] Lab (1st floor, no room number) [place] [address], [facility] [phone] documented in this encounter Visit Diagnoses Diagnosis Aftercare following joint replacement- Primary Knee pain Pain in joint, lower leg Osteoarthritis Osteoarthrosis, unspecified whether generalized or localized, unspecified site documented in this encounter Additional Health Concerns Assessment Noted Time PHQ-9 Depression Total Score: 0 07/04/20 23 1:50 PM CDT documented as of this encounter Care Teams Line Repairer Relationship Specialty Start Date End Date Carey Vuong MD [address] [facility] [place] [address] PCP - General 01/15/02 Mehreen Scott MD [address] [place] [place] [address] [place] [phone] bar supervisor 12/15/19 Carey Vuong MD [address] [facility] [place] [address] Assigned PCP 02/22/21 Prema Hitchcock PA-C [address] [place] [address] Assigned Surgical Provider 11/04/21 Chidi Puckett MD [address] [place] [address] Assigned Sleep Provider 02/17/22 10/31/23 Harriet Lindsay Personal Advocate & Liaison (PAL) 06/17/22 Aisha Murdock PA-C [facility] [address] [place] [address] Assigned Neuroscience Provider 06/08/22 11/28/23 Lavern Pope MD [address] [facility] [address] [place] [address] Cardiovascular Disease 11/11/22 Lavern Pope MD [address] [facility] [address] [place] [address] Assigned Heart and Vascular Provider 11/16/22 Elmer Paul MD [address] [place], [place] [address] Allergy & Immunology 02/17/23 Elmer Paul MD [address] [place], [place] [address] Assigned Allergy Provider 04/26/23 Batool Torres, PSYCHOLOGICAL STRESS EVALUATOR [address] [place] [address] Nurse Practitioner Pulmonary Disease 08/11/23 documented as of this encounter
--- OUTSIDE RECORDS SUMMARY | 2023-12-29 23:09 | XMS_ITS | Encounter Summary ---
Author Name Unknown Organization [place] Address [address] [place] [address] Care Team Providers Care Log Skidder Name Role Phone Carey Vuong MD Primary Care Provider [phone] Mehreen Scott MD Unavailable Carey Vuong MD Unavailable Prema Hitchcock PA-C Unavailable [phone] Chidi Puckett MD Unavai lable Harriet Lindsay Unavailable Unavailable Aisha Murdock PA-C Unavailable [phone] Lavern Pope MD Unavailable [phone] Lavern Pope MD Unavailable Elmer Paul MD Unavailable [phone] Elmer Paul MD Unavailable [phone] Batool Torres NP Unavailable Reason for Visit * Reason Comments Shortness of Breath Cough Encounter Details Date Type Department Care Team (Late st Contact Info) Description 09/11/2023 8:00 AM CDT Office Visit [facility] [address] [address] Shortness of breath; Cough Social History Tobacco Use Types Packs/Day Years [...] How often do you attend chur or rastafarian services? More than 4 times per year [...] Administer PHQ-9 if positive 0 07/04/2023 [facility] of Occupat ional Health - Occupational Stress [...] place to sleep or slept in a long-term (including now)? No 06/17/2022 Adolescent Education Answer Date Record ed Getting School Help Needed Not on file 09/03 Education Answer Date Recorded What is the highest level of school you have completed or the highest degree you have received? Some college, no degree 12/12/2019 Sex and Gender Information Value Date Recorded Sex Assigned at Female 12/12/2019 6:30 PM TELEPRINTER INSTALLER Gender Identity Female 12/12/2019 6:30 PM TELEPRINTER INSTALLER Sexual Orientation Straight 04/04/2021 12 :18 PM CDT Travel History Travel Start Travel End [place] 12/06/2023 12/12/2023 COVID-19 Exposure Response Date Recorded In the last 10 days, have yo u been in contact with someone who was confirmed or suspected to have Coronavirus/COVID-19? No / Unsure 09/04/2023 10:07 AM CDT documented as of this encounter Progress Notes * Zakiya Landaverde RT - 09/11/2023 8:00 AM CDT Pft complete documented in this encounter Plan of Treatment Upcoming Encounters Date Type Department Care Team (Late st Contact Info) Description 03/19/2024 3:30 PM CDT Office Visit [facility] [address] [facility] 200 [place] [address] Elmer Paul MD [address] [facility] 200 [place] [address] 04/16/2024 8:30 AM CDT Lab [facility] [address] [facility] [address] [place] [phone] 04/20/2024 8:45 AM CDT Office Visit [facility] [address] [facility] [address] [place] [address] Lavern Pope MD [address] [facility] [address] [place] [address] Scheduled Orders Name Type Priority Associated Diagnoses Orde r Schedule Hemoglobin POCT Lab Routine Shortness of breath Cough Ordered: 09/11/2023 documented as of this encounter Procedures Procedure Name Priority Date/Time Associated Diagnosis Comments AR DIFFUSING CAPACITY Routine 09/11/2023 8:24 AM CDT Shortness of breath Cough AR PLETHYSMOGRAPHY LUNG VOLUMES W/WO AIRWAY RESIST Routine 09/11/2023 8:24 AM CDT Shortness of breath Cough AR BRONCHODILATION RESPONSE, PRE/POST ADMIN Routine 09/11/2023 8:24 AM CDT Shortness of breath Cough HEMOGLOBIN POCT Routine 09/11/2023 8:23 AM CDT Shortness of breath Cough PFT GENERAL LAB TESTING Routine 09/11/20 7:54 AM CDT Shortness of breath Cough documented in this encounter Results * Hemoglobin POCT (09/11/2023 8:23 AM CDT) Hemoglobin POCT 14.6 g/dL Whole blood 09/11/2023 8:23 AM CDT Mily Johnson MD LAB - ENTER/EDIT POC T * General PFT Lab (Please always keep checked) (09/11/2023 7:54 AM CDT) Pathologist [facility] FVC-Pred 3.37 L [facility] PFT FVC-Pre 3.93 L [facility] PFT FVC-%Pred-Pre 116 % [facility] PFT FEV1-Pre 3.00 L [facility] PFT FEV1-%Pred-Pre 110 % [facility] PFT [id number] 81 % [facility] PFT [id number] 76 % [facility] PFT FEFMax-Pred 6.99 L/sec [facility] PFT FEFMax-Pre 6.60 L/sec [facility] PFT FEFMax-%Pred-Pr e 94 % [facility] PFT [id number] 2.71 L/sec [facility] PFT [id number] 2.47 L/sec [facility] PFT SUX2368-%Pred-P re 91 % [facility] PFT [id number] 3.12 L/sec [facility] PFT BIZ2484-%Pred-P ost 115 % [facility] PFT ExpTime-Pre 7.76 sec [facility] PFT FIFMax-Pre 5.91 L/sec [facility] PFT VC-Pred 3.55 L [facility] PFT VC-Pre 4.14 L [facility] PFT VC-%Pred-Pre 116 % [facility] PFT IC-Pred 2.47 L [facility] PFT IC-Pre 3.48 L [facility] PFT IC-%Pred-Pre 141 % [facility] PFT ERV-Pred 1.23 L [facility] PFT ERV-Pre 0.66 L [facility] PFT ERV-%Pred-Pre 53 % [facility] PFT [id number] 82 % [facility] PFT [id number]-Evn 76 % [facility] PFT FRCPleth-Pred 2.78 L [facility] PFT FRCPleth-Pre 2.62 L [facility] PFT FRCPleth-%Pred- Pre 94 % [facility] PFT RVPleth-Pred 1.80 L [facility] PFT RVPleth-Pre 1.96 L [facility] PFT RVPleth-%Pred-P re 109 % [facility] PFT TLCPleth-Pred 5.19 L [facility] PFT TLCPleth-Pre 6.11 L [facility] PFT TLCPleth-%Pred- Pre 117 % [facility]ZE PFT DLCOunc-Pred 21.48 ml/min/mmHg [facility] PFT DLCOunc-Pre 21.21 ml/min/mmHg [facility] PFT DLCOunc-%Pred-P re 98 % [facility] PFT DLCOcor-Pre 20.49 ml/min/mmHg [facility] PFT DLCOcor-%Pred-P re 95 % [facility] PFT VA-Pre 5.56 L [facility] PFT VA-%Pred-Pre 109 % [facility] PFT [id number] 77 % [facility] PFT [id number]-Voi 73 % [facility] PFT 09/11/2023 7:54 AM CDT Narrative [facility] PFT - 09/11/2023 1:12 PM CDT FEV1/FVC is 76% and is normal. FEV1 is 3.00L (110%) predicted and is normal. FVC is 3.93L (116%) predicted and normal. There ??is not improvement in spirometry after a single inhaled dose of bronchodilator. TLC is 6.11L (117%) predicted and is normal. RV is 1.96L (109%) predicted and is normal. DLCO is 20.49ml/min/hg (95%) predicted and is normal when it is corrected for hemoglobin. Flow volume loops indicate no abnormalities. Impression: ??Full Pulmonary Function Test is normal. ??PFTs are consistent with ??no ??obstructive disease. Spirometry is not consistent with reversibility. There ??is not ??hyperinflation. There ??is not ??air-trapping. Diffusion capacity when corrected for hemoglobin is normal. The ATS criteria for acceptability and reproducibility was met. Mily KennyShahla Johnson [facility] [id number] ?This interpretation has been electronically signed: ??Mily Johnson 09/11/2023 ??12:51:50 PM? Mily Johnson MD PFT ORDERABLES MIRIAM PFT documented in this encounter Visit Diagnoses Diagnosis Shortness of breath Cough documented in this encounter Additional Health Concerns Assessment Noted Time PHQ-9 Depression Total Score: 0 07/04/20 23 1:50 PM CDT documented as of this encounter Care Teams Log Skidder Relationship Specialty Start Date End Date Carey Vuong MD [address] [facility] [place] [address] PCP - General 01/15/02 Mehreen Scott MD [address] [facility] 100 [place] [address] tin flopper 12/15/19 Carey Vuong MD [address] [facility] [place] [address] Assigned PCP 02/22/21 Prema Hitchcock PA-C [address] [facility] [place] [address] Assigned Surgical Provider 11/04/21 Chidi Puckett MD [address] [facility] 106 [place] [address] Assigned Sleep Provider 02/17/22 10/31/23 Harriet Lindsay Personal Advocate & Liaison (PAL) 06/17/22 Aisha Murdokc PA-C [facility] [address] [place] [address] [address] Assigned Neuroscience Provider 06/08/22 11/28/23 Lavern Pope MD [address] [facility] [address] [place] [address] Cardiovascular Disease 11/11/22 Lavern Pope MD [address] [facility] [address] [place] [address] Assigned Heart and Vascular Provider 11/16/22 Elmer Paul MD [address] [place] [address] Allergy & Immunology 02/17/23 Elmer Paul MD [address], [address] [place] [address] Assigned Allergy Provider 04/26/23 Batool Torres, INGREDIENT HANDLER [address] [place] [address] [place] [address] Nurse Practitioner Pulmonary Disease 08/11/23 documented as of this encounter
--- OUTSIDE RECORDS SUMMARY | 2023-12-29 23:09 | XMS_ITS | Encounter Summary ---
Author Name Unknown Organization [place] Address [address] [place] [address] Care Team Providers Care Industrial Technology Teacher Name Role Phone Carey Vuong MD Primary Care Provider [phone] Mehreen Scott MD Unavailable [phone] Carey Vuong MD Unavailable Prema Hitchcock PA-C Unavailable Chidi Puckett MD Unavai lable Harriet Lindsay Unavailable Unavailable Aisha Murdock PA-C Unavailable [phone] Lavern Pope MD Unavailable [phone] Lavern Pope MD Unavailable Elmer Paul MD Unavailable [phone] Elmer Paul MD Unavailable [phone] Batool Torres NP Unavailable Reason for Visit * Reason Onset Date Comments Outreach 10/01/2023 Encounter Details Date Type Department Care Team (Late st Contact Info) Description 10/01/2023 [facility] [address] [facility] [address] [place] [phone] Carey Vuong MD [address] [facility] [place] [address] Outreach Social History Tobacco Use Types Packs/Day Years [...] 06/17/2022 How often do you attend [facility] or sabianism services? More than 4 times [...] Answer Date Recorded PHQ-2 Score 2 09/23/2023 [facility] of Occupat ional Health - Occupational Stress [...] Assigned at Female 12/12/2019 6:30 PM PROPERTY MANAGEMENT ACCOUNTANT Gender Identity Female 12/12/2019 6:30 PM PROPERTY MANAGEMENT ACCOUNTANT Sexual Orientation Straight 04/04/2021 12 :18 PM [...] Description 03/19/2024 3:30 PM CDT Office Visit [facility] [place] [address] [facility] [address] [place] [address] Elmer Paul MD [address] [facility] [address] [place] [address] 04/16/2024 8:30 AM CDT Lab [facility] [address] [facility] [address] [place] [phone] 04/20/2024 8:45 AM CDT Office Visit [facility] [address] [facility] [address] [place] [phone] Lavern Pope MD [address] [facility] [address] [place] [address] documented as of this encounter Visit Diagnoses Not on filedocumented in this encounter Additional Health Concerns Assessment Noted Time PHQ-9 Depression Total Score: 7 09/23/20 23 4:13 PM CDT documented as of this encounter Care Teams Industrial Technology Teacher Relationship Specialty Start Date End Date Carey Vuong MD [address] [place] [address] [place] [address] PCP - General 01/15/02 Mehreen Scott MD [address] [place] [phone] warp dresser 12/15/19 Carey Vuong MD [address] [place] [address] [place] [address] Assigned PCP 02/22/21 Prema Hitchcock PA-C [address] [place] [address] Assigned Surgical Provider 11/04/21 Chidi Puckett MD [address] [place], [place] [address] Assigned Sleep Provider 02/17/22 10/31/23 Harriet Lindsay Personal Advocate & Liaison (PAL) 06/17/22 Aisha Murdock PA-C [facility] [address] [place] [address] Assigned Neuroscience Provider 06/08/22 11/28/23 Lavern Pope MD [address] [facility] [address] [place], [place] [address] Cardiovascular Disease 11/11/22 Lavern Pope MD [address] [facility] [place], [place] [address] Assigned Heart and Vascular Provider 11/16/22 Elmer Paul MD [address] [place], [place] [address] Allergy & Immunology 02/17/23 Elmer Paul MD [address] [place], [place] [address] Assigned Allergy Provider 04/26/23 Batool Torres, ROLL TABLE OPERATOR [address] [facility] [place] [place] [address] Nurse Practitioner Pulmonary Disease 08/11/23 documented as of this encounter
--- OUTSIDE RECORDS SUMMARY | 2023-12-29 23:09 | XMS_ITS | Encounter Summary ---
Author Name Unknown Organization [place] Address [address] [place] [address] Care Team Providers Care Director Of Child Welfare Services Name Role Phone Carey Vuong MD Primary Care Provider [phone] Mehreen Scott MD Unavailable Carey Vuong MD Unavailable Prema Hitchcock PA-C Unavailable Chidi Puckett MD Unavai lable Harriet Lindsay Unavailable Unavailable Aisha Murdock PA-C Unavailable Lavern Pope MD Unavailable [phone] Lavern Pope MD Unavailable Elmer Paul MD Unavailable [phone] Elmer Paul MD Unavailable [phone] Batool Torres NP Unavailable Encounter Details Date Type Department Care Team (Late st Contact Info) Description 09/08/[address] [place] [phone] Angélica Harriet L Social History Tobacco Use [...] week 06/17/2022 How often do you attend [facility] or nondenominational services? More than 4 times per year 06/17/2022 Do you belong to any clubs o r organizations such as yazidism groups, unions, fraternal or athletic groups, or [...] points; Administer PHQ-9 if positive 0 07/04/2023 [facility] [place] of Occupat ional Health - Occupational Stress [...] place to sleep or slept in a group home (including now)? No 06/17/2022 Adolescent Education Answer Date Record ed Getting School Help Needed Not on file 09/03 Education Answer Date Recorded What is the highest level of school you have completed or the highest degree you have received? Some college, no degree 12/12/2019 Sex and Gender Information Value Date Recorded Sex Assigned at Female 12/12/2019 6:30 PM CURTAIN CUTTER Gender Identity Female 12/12/2019 6:30 PM CURTAIN CUTTER Sexual Orientation Straight 04/04/2021 12 :18 PM CDT Travel History Travel Start Travel End [place] 12/06/2023 12/12/2023 COVID-19 Exposure Response Date Recorded In the last 10 days, have yo u been in contact with someone who was confirmed or suspected to have Coronavirus/COVID-19? No / Unsure 09/04/2023 10:07 AM CDT documented as of this encounter Miscellaneous Notes * Telephone Encounter - Marcos Thomas RN - 09/10/2023 10:12 AM CDT Pharmacy requested refills that are already active on file. Refused request to pharmacy. * Telephone Encounter - Harriet Lindsay - 09/08/2023 8:37 AM CDT Pending Prescriptions: Disp Refills citalopram (CELEXA) 40 MG tablet 90 tab*3 Sig: Take 1 tablet (40 mg) by mouth daily documented in this encounter Plan of Treatment Upcoming Encounters Date Type Department Care Team (Late st Contact Info) Description 03/19/2024 3:30 PM CDT Office Visit [facility] Specialty [facility] [address] [facility] [address] [place] [address] Elmre Paul MD [address] [facility] [address] [place] [address] 04/16/2024 8:[address] [facility] [address] [facility] [address] [place] [phone] 04/20/2024 8:45 AM CDT Office Visit [facility] [address] [facility] [address] [place] [address] Lavern Pope MD [address] [facility] [address] [place] [address] documented as of this encounter Visit Diagnoses Diagnosis Major depressive disorder, recurrent episode, moderate (H) Major depressive disorder, recurrent episode, moderate documented in this encounter Additional Health Concerns Assessment Noted Time PHQ-9 Depression Total Score: 0 07/04/20 23 1:50 PM CDT documented as of this encounter Care Teams Director Of Child Welfare Services Relationship Specialty Start Date End Date Carey Vuong MD [address] [facility] [address] [address] PCP - General 01/15/02 Mehreen Scott MD [address] [facility] [address] [place] [address] product promoter retail pet 12/15/19 Carey Vuong MD [address] [facility] [address] Assigned PCP 02/22/21 Prema Hitchcock PA-C [address] [facility] [place] [address] Assigned Surgical Provider 11/04/21 Chidi Puckett MD [address] [facility] 106 [place] [address] Assigned Sleep Provider 02/17/22 10/31/23 Harriet Lindsay Personal Advocate & Liaison (PAL) 06/17/22 Aisha Murdock PA-C [facility] [address] [address] Assigned Neuroscience Provider 06/08/22 11/28/23 Lavern Pope MD [address] [place] [address] Cardiovascular Disease 11/11/22 Lavern Pope MD [address] [place] [address] Assigned Heart and Vascular Provider 11/16/22 Elmer Paul MD [address] [place], [place] [address] Allergy & Immunology 02/17/23 Elmer Paul MD [address] [place], [place] [address] Assigned Allergy Provider 04/26/23 Batool Torres NP [address] [place] [address] Nurse Practitioner Pulmonary Disease 08/11/23 documented as of this encounter
--- OUTSIDE RECORDS SUMMARY | 2023-12-29 23:09 | XMS_ITS | Encounter Summary ---
Author Name Unknown Organization [place] Address [address] [place] [address] Care Team Providers Care Senior Firmware Engineer Name Role Phone Carey Vuong MD Primary Care Provider [phone] Mehreen Scott MD Unavailable [phone] Carey Vuong MD Unavailable [phone] Prema Hitchcock PA-C Unavailable Chidi Puckett MD Unavai lable Harriet Lindsay Unavailable Unavailable Aisha Murdock PA-C Unavailable [phone] Lavern Pope MD Unavailable [phone] Lavern Pope MD Unavailable [phone] Elmer Paul MD Unavailable [phone] Elmer Paul MD Unavailable [phone] Batool Torres NP Unavailable Reason for Visit * Reason Comments RECHECK Pulmonology and coug h Encounter Details Date Type Department Care Team (Late st Contact Info) Description 09/23/2023 4:40 PM CDT [facility] [address] [place] [phone] Carey Vuong MD [address] [facility] [place] [address] Small intestinal bacterial overgrowth (SIBO) (Primary Dx); Class 2 severe obesity due to excess calories with serious comorbidity and body mass index (BMI) of 36.0 to 36.9 in adult (H); Mild persistent asthma without complication; Migraine without aura and without status migrainosus, not intractable Social History Tobacco Use Types Packs/Day Years [...] week 06/17/2022 How often do you attend [facility] or taoism services? More than 4 times per year 06/17/2022 Do you belong to any clubs o r organizations such as restorationist groups, unions, fraternal or athletic groups, or [...] Answer Date Recorded PHQ-2 Score 2 09/23/2023 [facility] [place] of Occupat ional Health - Occupational Stress [...] Sex Assigned at Female 12/12/2019 6:30 PM SKIN CARE INSTRUCTOR Gender Identity Female 12/12/2019 6:30 PM SKIN CARE INSTRUCTOR Sexual Orientation Straight 04/04/2021 12 :18 [...] Sign Reading Time Taken Comments Blood Pressure 102/64 09/23/2023 4:24 PM CDT Pulse 75 09/23/2023 4:24 PM CDT Temperature 37.3 ??C (99.2 ??F) 09/23/2023 4:24 PM CD T Respiratory Rate 18 09/23/2023 4:24 PM CDT Oxygen Saturation 97% 09/23/2023 4:24 PM CDT Inhaled Oxygen Concentration - - Weight 100.4 kg (221 lb 4.8 oz) 09/23/2023 4:24 PM CDT Height - - Body Mass Index 36.27 09/11/2023 8:54 AM CDT documented in this encounter Patient Instructions * Patient Instructions* Carey Vuong MD - 09/23/2023 4:40 PM CDT Just take the cipro course. Check with GI, what to expect with cipro. Consider discussing EGD since similar symptoms you've had in the past improved after esophageal dilation. Check with insurance on coverage for Wegovy (semaglutide) or Saxenda (liraglutide) If getting ready for me to send rx, might need to search around for it. Pharmacies in low supply. Decrease topiramate to 75 mg at night for at least 1 week, then can decrease to 50 mg for at least one week. If you want to wait and watch for headaches, that's OK, then decrease to 25mg for at leasta week, then stop documented in this encounter Progress Notes * Carey Vuong MD - 09/23/2023 4:40 PM CDT Assessment & Plan 1. Small intestinal bacterial overgrowth (SIBO) Discussed GI notes and recommendations at length. Recommended she proceed with treatment, clarifiedwhich antibiotic she was supposed to take. Plan proceed with cipro. Also discussed topiramate, which is being used for migraine prevention. She doesn't think this has helped at all. Plan taper to off as this may be contributing to her GI symptoms. 2. Class 2 severe obesity due to excess calories with serious comorbidity and body mass index (BMI)of 36.0 to 36.9 in adult (H) She is feeling very frustrated that even with her GI symptoms and working out, she continues to gain weight. TSH has been normal. Discussed weight management clinic. She prefers to do a trial on GLP1. Discussed concern that this could add to her GI symptoms. She would like to complete her course ofcipro and see how she feels. If she isn't feeling worse, would like to try at least the fist step dose of semaglutide. Recommended she check with her insurance on coverage and let me know. Ozempic/Semglutide (once a week), Saxenda/Liraglutide (once a day)- these are alternatives. Please check cost with insurance. Possible side effect profile of these class of medication includes: Nausea, diarrhea, gastrointestinal intolerance, abdominal pain, upper respiratory tract infection, headache, increased heart rate, drop in blood sugar, injection site reaction. Rare side effects include pancreatitis, kidney problems. It has been associated with thyroid cancer in animal models. 3. Mild persistent asthma without complication No change in regimen today. Will make changes outlined above and recheck at next visit. 4. Migraine without aura and without status migrainosus, not intractable Discontinuing topiramate as not helpful. She will let me know if headaches increase. Review of external notes as documented elsewhere in note 66 minutes spent by me on the date of the encounter doing chart review, history and exam, documentation and further activities per the note Patient Instructions Just take the cipro course. Check with GI, what to expect with cipro. Consider discussing EGD since similar symptoms you've had in the past improved after esophageal dilation. Check with insurance on coverage for Wegovy (semaglutide) or Saxenda (liraglutide) If getting ready for me to send rx, might need to search around for it. Pharmacies in low supply. Decrease topiramate to 75 mg at night for at least 1 week, then can decrease to 50 mg for at least one week. If you want to wait and watch for headaches, that's OK, then decrease to 25mg for at leasta week, then stop Carey Vuong MD [facility] RANJAN Santos is a 48 year old, presenting for the following health issues: RECHECK (Pulmonology and cough ) 09/23/2023 4:23 PM Additional Questions Roomed by ELIZABETH Kruger Accompanied by MINDA 09/23/2023 4:23 PM Patient Reported Additional Medications Patient reports taking the following new medications azelastine (ASTELIN) 0.1 % nasal spray,ciprofloxacin (CIPRO) 500 MG tablet and neomycin (MYCIFRADIN) 500 MG tablet History of Present Illness Asthma: She presents for follow up of asthma. She has no cough, no wheezing, and no shortness of breath. She is using a relief medication a few times a week. She does not miss any doses of her controller medication throughout the week. Patient is aware of the following triggers: animal dander, exercise or sports, humidity, smoke, strong odors and fumes and upper respiratory infections. The patient has not had a visit to the Emergency Room, Urgent Care or Hospital due to asthma since the last clinic visit. Headaches: Since the patient's last clinic visit, headaches are: no change The patient is getting headaches: 1 per week She is not able to do normal daily activities when she has a migraine. The patient is taking the following rescue/relief medications: Ibuprofen (Advil, Motrin) Patient states I get some relief from the rescue/relief medications. The patient is taking the following medications to prevent migraines: Topomax In the past 4 weeks, the patient has gone to an Urgent Care or Emergency Room 0 times times due to headaches. She eats 0-1 servings of fruits and vegetables daily.She consumes 2 sweetened beverage(s) daily.Sheexercises with enough effort to increase her heart rate 30 to 60 minutes per day. She exercises with enough effort to increase her heart rate 3 or less days per week. She is missing 1 dose(s) of medications per week. Improvement with airduo. Has seen pulmonary. Started omeprazole last week and gunky throat is much better. Now has a frog in her throat, can't get rid of it. Frequent throat clearing. Was on bactrim, when she finished, symptoms came back. Prescribed rifamixin and neomycin but insurance wouldn't approve. Now has rx there for cipro. Diarrhea constipation, floating stools, stool urgency, incontinence. Abdominal pain. Severe stomachbloating. Review of Systems Constitutional, HEENT, cardiovascular, pulmonary, gi and gu systems are negative, except as otherwise noted. Objective BP 102/64 Pulse 75 Temp 99.2 ??F (37.3 ??C) (Oral) Resp 18 Wt 100.4 kg (221 lb 4.8 oz) LMP (LMP Unknown) SpO2 97% BMI 36.27 kg/m?? Body mass index is 36.27 kg/m??. Physical Exam GENERAL: healthy, alert and no distress RESP: lungs clear to auscultation - no rales, rhonchi or wheezes CV: regular rate and rhythm, normal S1 S2, no S3 or S4, no murmur, click or rub, no peripheral edema and peripheral pulses strong MS: no gross musculoskeletal defects noted, no edema documented in this encounter Plan of Treatment Upcoming Encounters Date Type Department Care Team (Late st Contact Info) Description 03/19/2024 3:30 PM CDT Office Visit [facility] Specialty [facility] [address] [facility] [address] [place] [phone] Elmer Paul MD [address] [facility] [address] [place] [phone] 04/16/2024 8:30 AM CDT Lab [facility] Heart [facility] [address] [facility] [address] [place] [phone] 04/20/2024 8:45 AM CDT Office Visit [facility] [address] [facility] [address] [place] [phone] Lavern Pope MD [address] [facility] [address] [place] [address] documented as of this encounter Procedures Procedure Name Priority Date/Time Associated Diagnosis Comments COVID-19 12+ (2022-) (PFIZER) Routine 08/19/2022 documented in this encounter Results * COVID-19 12+ () (PFIZER) (08/19/2022) 08/19/2022 Carey Vuong MD IMMUNIZATION/INJECT ION documented in this encounter Visit Diagnoses Diagnosis Small intestinal bacterial overgrowth (SIBO)- Primary Class 2 severe obesity due to excess calories with serious comorbidity and body mass index (BMI) of 36.0 to 36.9 in adult (H) Mild persistent asthma without complication Unspecified asthma Migraine without aura and without status migrainosus, not intractable Migraine without aura, without mention of intractable migraine without mention of status migrainosus documented in this encounter Additional Health Concerns Assessment Noted Time PHQ-9 Depression Total Score: 7 09/23/20 23 4:13 PM CDT documented as of this encounter Care Teams Senior Firmware Engineer Relationship Specialty Start Date End Date Carey Vuong MD [address] [place] [address] [place] [address] PCP - General 01/15/02 Mehreen Scott MD [address] [place] [address] [place] [phone] wholesale buyer 12/15/19 Carey Vuong MD [address] [place] [address] [place] [address] Assigned PCP 02/22/21 Prema Hitchcock PA-C [address] [place] [address] Assigned Surgical Provider 11/04/21 Chidi Puckett MD [address] [place] [address] Assigned Sleep Provider 02/17/22 10/31/23 Harriet Lindsay Personal Advocate & Liaison (PAL) 06/17/22 Aisha Murdock PA-C [facility] [address] [place] [address] Assigned Neuroscience Provider 06/08/22 11/28/23 Lavern Pope MD [address] [facility] [address] [place], [place] [address] MD Cardiovascular Disease 11/11/22 Lavern Pope MD [address] [facility] [address] [place], [place] [address] Assigned Heart and Vascular Provider 11/16/22 Elmer Paul MD [address] [place] [address] Allergy & Immunology 02/17/23 Elmer Paul MD [address] [place] [address] Assigned Allergy Provider 04/26/23 Batool Torres, BUSINESS JOB TITLES [address] [facility] [place] [address] Nurse Practitioner Pulmonary Disease 08/11/23 documented as of this encounter
--- OUTSIDE RECORDS SUMMARY | 2023-12-29 23:09 | XMS_ITS | Encounter Summary ---
Author Name Unknown Organization [place] Address [address] [place] [address] Care Team Providers Care Clinical Scientist Name Role Phone Carey Vuong MD Primary Care Provider [phone] Mehreen Scott MD Unavailable Carey Vuong MD Unavailable [phone] Prema Hitchcock PA-C Unavailable Chidi Puckett MD Unavai lable Harriet Lindsay Unavailable Unavailable Aisha Murdock PA-C Unavailable Lavern Pope MD Unavailable [phone] Lavern Pope MD Unavailable Elmer Paul MD Unavailable [phone] Elmer Paul MD Unavailable [phone] Batool Torres NP Unavailable Encounter Details Date Type Department Care Team (Late st Contact Info) Description 09/26/[address] [facility] [address] [place] [address] Carey Vuong MD [address] [facility] [place] [address] Class 2 obesity due to excess calories without serious comorbidity with body mass index (BMI) of 36.0 to 36.9 in adult (Primary Dx) Social History Tobacco Use Types [...] week 06/17/2022 How often do you attend [facility] or mosque services? More than 4 times per year 06/17/2022 Do you belong to any clubs o r organizations such as islam groups, unions, fraternal or athletic groups, or [...] Answer Date Recorded PHQ-2 Score 2 09/23/2023 [facility] of Occupat ional Health - Occupational [...] Sex Assigned at Female 12/12/2019 6:30 PM CALL CENTER TRAINER Gender Identity Female 12/12/2019 6:30 PM CALL CENTER TRAINER Sexual Orientation Straight 04/04/2021 12 :18 PM CDT Travel History Travel Start Travel End [place] 12/06/2023 12/12/2023 COVID-19 Exposure Response Date Recorded In the last 10 days, have yo u been in contact with someone who was confirmed or suspected to have Coronavirus/COVID-19? No / Unsure 09/04/2023 10:07 AM CDT documented as of this encounter Plan of Treatment Upcoming Encounters Date Type Department Care Team (Late st Contact Info) Description 03/19/2024 3:30 PM CDT Office Visit [facility] [address] [facility] [address] [place] [phone] Elmer Paul MD [address] [facility] [address] [place] [address] 04/16/2024 8:30 AM CDT Lab [facility] Heart [facility] [address] [facility] [address] [place] [phone] 04/20/2024 8:45 AM CDT Office Visit [facility] [address] [facility] [address] [place] [phone] Lavern Pope MD [address] [facility] [address] [place] [address] documented as of this encounter Visit Diagnoses Diagnosis Class 2 obesity due to excess calories without serious comorbidity with body mass index (BMI) of 36.0 to 36.9 in adult- Primary documented in this encounter Additional Health Concerns Assessment Noted Time PHQ-9 Depression Total Score: 7 09/23/20 23 4:13 PM CDT documented as of this encounter Care Teams Clinical Scientist Relationship Specialty Start Date End Date Carey Vuong MD [address] [facility] [place] [address] PCP - General 01/15/02 Mehreen Scott MD [address] [place] [phone] lyric writer 12/15/19 Carey Vuong MD [address] [facility] [address] Assigned PCP 02/22/21 Prema Hitchcock PA-C [address] [place] [address] Assigned Surgical Provider 11/04/21 Chidi Puckett MD [address] [place], [place] [address] Assigned Sleep Provider 02/17/22 10/31/23 Harriet Lindsay Personal Advocate & Liaison (PAL) 06/17/22 Aisha Murdock PA-C [facility] [address] [place] [address] Assigned Neuroscience Provider 06/08/22 11/28/23 Lavern Pope MD [address] [facility] [address] [place], [place] [address] Cardiovascular Disease 11/11/22 Lavern Pope MD [address] [facility] [address] [place], [place] [address] Assigned Heart and Vascular Provider 11/16/22 Elmer Paul MD [address] [place], [place] [address] Allergy & Immunology 02/17/23 Elmer Paul MD [address] [place], [place] [address] Assigned Allergy Provider 04/26/23 Batool Torres NP [address] [place] [address] Nurse Practitioner Pulmonary Disease 08/11/23 documented as of this encounter
[2023-12-29 23:10] LABS: Hemoglobin* 13.7 gm/dL (12.0-16.0); Red Blood Count 4.24 m/uL (4.00-5.20); White Blood Count* 10.85 K/uL (4.50-11.00)
--- OUTSIDE RECORDS SUMMARY | 2023-12-29 23:10 | XMS_ITS | Encounter Summary ---
Author Name Unknown Organization [facility] Address [address] [place] [address] Care Team Providers Care Revenue Tax Specialist Name Role Phone Carey Vuong MD Primary Care Provider [phone] Mehreen Scott MD Unavailable [phone] Carey Vuong MD Unavailable [phone] Prema Hitchcock PA-C Unavailable [phone] Chidi Puckett MD Unavai lable Harriet Lindsay Unavailable Unavailable Aisha Murdock PA-C Unavailable [phone] Lavern Pope MD Unavailable [phone] Lavern Pope MD Unavailable Elmer Paul MD Unavailable [phone] Elmer Paul MD Unavailable [phone] Batool Torres NP Unavailable Reason for Visit * Reason Onset Date Comments Patient Inquiry 08/12/2023 Encounter Details Date Type Department Care Team (Late st Contact Info) Description 08/12/2023 [facility] [address] [place] [phone] Carey Vuong MD [address] [facility] [place] [address] Patient Inquiry Social History Tobacco Use Types Packs/Day Years [...] do you attend [facility] or jainism services? More than 4 times per year 06/17/2022 Do you belong to any clubs o r organizations such as jehovah's witness groups, unions, fraternal or athletic groups, or [...] points; Administer PHQ-9 if positive 0 07/04/2023 [facility] [place] of Occupat ional Health - Occupational Stress [...] place to sleep or slept in a jail (including now)? No 06/17/2022 Education Answer Date Recorded What is the highest level of school you have completed or the highest degree you have received? Some college, no degree 12/12/2019 Sex and Gender Information Value Date Recorded Sex Assigned at Female 12/12/2019 6:30 PM CORRECTION OFFICER [place] [employer] [place] Gender Identity Female 12/12/2019 6:30 PM CORRECTION OFFICER [place] Sexual Orientation Straight 04/04/2021 12 :18 PM CDT Travel History Travel Start Travel End [place] 12/06/2023 12/12/2023 COVID-19 Exposure Response Date Recorded In the last 10 days, have yo u been in contact with someone who was confirmed or suspected to have Coronavirus/COVID-19? Unable to assess 08/11/2023 10:34 AM CDT documented as of this encounter Miscellaneous Notes * Telephone Encounter - Paty Nielsen RN - 08/14/2023 3:19 PM CDT Patient confirmed the appointment for 08/19. Next 5 appointments (look out 90 days) Aug 19, 2023 4:00 PM (Arrive by 3:40 PM) Provider Visit with Carey Vuong MD [facility] [address] [place] [address] [address] [place] [address] Sep 23, 2023 4:40 PM (Arrive by 4:20 PM) Provider Visit with Carey Vuong MD [facility] [address] [place] [address] [address] [place] [address] Paty Nielsen RN * Telephone Encounter - Paty Nielsen RN - 08/14/2023 11:26 AM CDT No openings today or tomorrow, no approval required spots. I huddled with Kayleigh and ok to wait until next week as initially discussed-she can see patient nextweek, no one has openings today or tomorrow. Scheduled appointment with Dr. Vuong for next Friday. Checking with patient if this works forher. Paty Nielsen RN * Telephone Encounter - Paty Nielsen RN - 08/14/2023 8:34 AM CDT Message to patient-offered appointment for today or tomorrow. She is leaving on 08/21. Paty Nielsen RN * Telephone Encounter - Carey Vuong MD - 08/13/2023 6:11 PM CDT She really should be seen in person on 08/14 before she leaves, especially if going on a flight. Could do zpack. In past has been marginally helpful for her. But if coughing up mucous, might help.If hurts to take a deep breath, could consider eval for PE, though less likely especially given mucous/productive cough. Also good for her to know we can do a doctors note if she wants to cancel her flight. Not that she needs to do that. Just FYI for her. I know she doesn't feel more anxious, but sometimes the symptoms are physical with decreasing the dose and I worry that it's the 1 day with medicine and 1 day without that has been part of the issue. Carey Vuong M.D. * Telephone Encounter - Paty Nielsen RN - 08/13/2023 12:46 PM CDT Sent the script to the pharmacy. Called and discussed with patient: she is in agreement with Celexa 40mg once daily and will send anupdate on Friday on how she is doing. Patient is worried that Celexa will not help and with her leaving on a trip, she is worried she will have a hard time with SOB. We would likely have to see her to reevaluate in an in-person appointment-will pend until Friday. Please call if we do not get a my-chart message from patient to check how she is doing. Please discuss with Kayleigh/make an appointment accordingly. Paty Nielsen RN * Telephone Encounter - Kayleigh Alexander PA-C - 08/13/2023 12:24 PM CDT Thank you for this comprehensive note. We will have her keep her appointments as scheduled. In speaking with Dr. Vuong, we will have the patient go back on the Celexa at 40 mg daily. I will send the prescription through. Furthermore, Dr. Vuong will want to see her in followup in the middle to end of August after she has seen Pulmonary. Can you please help get that appointment sc heduled? Medication is teed up, but there is not pharmacy selected, can you send where patient desires? * Telephone Encounter - Paty Nielsen RN - 08/13/2023 11:22 AM CDT Patient has an appointment for echo stress test on 08/20. She is scheduled with pulmonology on 09/11with FULL PFT test on 09/11 prior to seeing a provider. Called patient to review the recommendations below and to discuss the taper of Celexa and going back on 40mg once daily if appropriate. I talked to the patient: I asked patient if she wanted to do PFTs sooner. She is not able to, because she is going to [facility] 08/21 and she will be there for couple of weeks. She states that she would like to be able to walk while she is there and not feel short of breath. Regarding Celexa: has followed the taper instructions and has initially done two tabs (20 mg) everyother day for two weeks, then one tablet (10 mg) every other day ( was to do this for another 2 weeks and has 5 doses left of this so will be done at the end of next week) We discussed that tapering off the Celexa might have made her breathing/SOB worse, as it might be making her anxiety worse. Patient does not feel that she has had any panic attacks, the taper has been very easy for her to follow. She reports being surprised that she has not been feeling anxious. She had no new symptoms, or side effects and does not think that anxiety is an issue. We discussed the plan outlined in provider's message below and patient verbalized understanding. Patient willing to try Celexa 40mg again-she is willing to try anything at this point. She will need a new script: [facility] is [facility] [place] Please review and advise-since she is leaving on 08/21-should she try Celexa 40mg for 2 days and call with an update-or would this take longer to know if helpful? Should she be seen this week for an in-person appointment to reevaluate? Paty Nielsen RN * Telephone Encounter - Kayleigh Alexander PA-C - 08/13/2023 10:53 AM CDT I have looked over my recent office visits with the patient and spoken with Dr. Vuong about the patient's concerns. In addition to the Pulmonary referral and the stress echo orders that I have placed, We can have the patient do pulmonary function testing at the [facility] to look more closely at her lung function. This would be an order for me to place and she would do this outpatient. As importantly, in speaking with Dr. Vuong as well, we are worried her anxiety could be exacerbating symptoms as I know she is working on coming off of her Celexa. Can we ask the patient where she is in the taper down? Dr. Vuong and I think she should go back to the Celexa of 40 for now and we could initiate a longer taper down after some time. Please call patient and let her know these thoughts and plans. * Telephone Encounter - Marcos Thomas RN - 08/12/2023 4:23 PM CDT Patient sending another Numerous message regarding follow up on symptoms. Patient was referred to pulmonology and stress echo test was ordered. Any further recommendations? Marcos Solomon RN 08/12/2023 at 4:24 PM documented in this encounter Plan of Treatment Upcoming Encounters Date Type Department Care Team (Late st Contact Info) Description 03/19/2024 3:30 PM CDT Office Visit [address] [phone] Elmer Paul MD [address] [facility] [address] [place] [address] 04/16/2024 8:30 AM CDT Lab [facility] [address] [facility] [address] [place] [phone] 04/20/2024 8:45 AM CDT Office Visit [facility] [address] [facility] [address] [place] [phone] aLvern Pope MD [address] [facility] [address] [place] [id number] documented as of this encounter Visit Diagnoses Diagnosis Major depressive disorder, recurrent episode, moderate (H)- Primary Major depressive disorder, recurrent episode, moderate documented in this encounter Additional Health Concerns Assessment Noted Time PHQ-9 Depression Total Score: 0 07/04/20 23 1:50 PM CDT documented as of this encounter Care Teams Revenue Tax Specialist Relationship Specialty Start Date End Date Carey Vuong MD [address] [place] [address] [place] [address] PCP - General 01/15/02 Mehreen Scott MD [address] [facility] [address] [place] [phone] director loss prevention 12/15/19 Carey Vuong MD [address] [place] [address] [place] [address] Assigned PCP 02/22/21 Prema Hitchcock PA-C [address] [place], [place] [address] Assigned Surgical Provider 11/04/21 Chidi Puckett MD [address] [place] [address] Assigned Sleep Provider 02/17/22 10/31/23 Harriet Lindsay Personal Advocate & Liaison (PAL) 06/17/22 Aisha Murdock PA-C [facility] [address] [place] [address] Assigned Neuroscience Provider 06/08/22 11/28/23 Lavern Pope MD [address] [facility] [address] [address] [place], [place] [address] Cardiovascular Disease 11/11/22 Lavern Pope MD [address] [place], [place] [address] Assigned Heart and Vascular Provider 11/16/22 Elmer Paul MD [address] [place] [address] Allergy & Immunology 02/17/23 Elmer Paul MD [address] [place], [place] [address] Assigned Allergy Provider 04/26/23 Batool Torres, BUCKLE FRAME SHAPER [address] [place] [place] [address] Nurse Practitioner Pulmonary Disease 08/11/23 documented as of this encounter
--- OUTSIDE RECORDS SUMMARY | 2023-12-29 23:10 | XMS_ITS | Encounter Summary ---
Author Name Unknown Organization [facility] Address [address] [place] [address] Care Team Providers Care Carton Repairer Name Role Phone Carey Vuong MD Primary Care Provider [phone] Mehreen Scott MD Unavailable [phone] Carey Vuong MD Unavailable Prema Hitchcock PA-C Unavailable Chidi Puckett MD Unavai lable Harriet Lindsay Unavailable Unavailable Aisha Murdock PA-C Unavailable Lavern Pope MD Unavailable [phone] Lavern Pope MD Unavailable Elmer Paul MD Unavailable [phone] Elmer Paul MD Unavailable [phone] Batool Torres NP Unavailable [phone] Encounter Details Date Type Department Care Team (Latest Contact Info) Description 09/04/2023 Travel Social History Tobacco Use Types Packs/Day [...] you attend [facility] or yarsanism services? More than 4 times [...] Administer PHQ-9 if positive 0 07/04/2023 [facility] of Occupat ional Health - Occupational Stress [...] Sex Assigned at Female 12/12/2019 6:30 PM PLASTIC AND RECONSTRUCTIVE SURGEON Gender Identity Female 12/12/2019 6:30 PM PLASTIC AND RECONSTRUCTIVE SURGEON Sexual Orientation Straight 04/04/2021 12 :18 PM CDT Travel History Travel Start Travel End [place] 12/06/2023 12/12/2023 COVID-19 Exposure Response Date Recorded In the last 10 days, have yo u been in contact with someone who was confirmed or suspected to have Coronavirus/COVID-19? No / Unsure 09/04/2023 10:07 AM CDT documented as of this encounter Plan of Treatment Upcoming Encounters Date Type Department Care Team (Sabra st Contact Info) Description 03/19/2024 3:30 PM CDT Office Visit [address] [place] [phone] Elmer Paul MD [address] , [address] [place] [address] 04/16/2024 8:30 AM CDT Lab [facility] [address] [facility] [address] [place] [phone] 04/20/2024 8:45 AM CDT Office Visit [facility] [address] [facility] [address] [place] [phone] Lavern Pope MD [address] [facility] [address] [place] [phone] documented as of this encounter Visit Diagnoses Not on filedocumented in this encounter Additional Health Concerns Assessment Noted Time PHQ-9 Depression Total Score: 0 07/04/20 23 1:50 PM CDT documented as of this encounter Care Teams Carton Repairer Relationship Specialty Start Date End Date Carey Vuong MD [address] [place] [address] [place] [address] PCP - General 01/15/02 Mehreen Scott MD [address] [facility] [address] [place] [phone] mold finisher 12/15/19 [place] [address] [place] [address] [place] [address] Assigned PCP 02/22/21 Prema Hitchcock PA-C [address] [place] [address] Assigned Surgical Provider 11/04/21 PusalaChidi saenz MD [address] [facility] [address] [place], [place] [address] Assigned Sleep Provider 02/17/22 10/31/23 Harriet Lindsay Personal Advocate & Liaison (PAL) 06/17/22 Aisha Murdock PA-C [facility] [address] [facility] [place] [address] Assigned Neuroscience Provider 06/08/22 11/28/23 Lavern Pope MD [address] [facility] [address] [place], [place] [address] MD Cardiovascular Disease 11/11/22 Lavern Pope MD [address] [facility] [address] [place], [place] [address] Assigned Heart and Vascular Provider 11/16/22 Elmer Paul MD [address] [place], [place] [address] Allergy & Immunology 02/17/23 Elmer Paul MD [address] [place], [place] [address] Assigned Allergy Provider 04/26/23 Batool Torres, SUPERVISOR SOLDERING [address] [facility] [place] [place] [address] Nurse Practitioner Pulmonary Disease 08/11/23 documented as of this encounter
--- OUTSIDE RECORDS SUMMARY | 2023-12-29 23:10 | XMS_ITS | Encounter Summary ---
Author Name Unknown Organization [facility] Address [address] [place] [address] Care Team Providers Care Laborer Tin Can Name Role Phone Carey Vuong MD Primary Care Provider [phone] Mehreen Scott MD Unavailable [phone] Carey Vuong MD Unavailable [phone] Prema Hitchcock PA-C Unavailable [phone] Chidi Puckett MD Unavai lable Harriet Lindsay Unavailable Unavailable Aisha Murdock PA-C Unavailable [phone] Lavern Pope MD Unavailable [phone] Lavern Pope MD Unavailable [phone] Elmer Paul MD Unavailable [phone] Elmer Paul MD Unavailable [phone] Batool Torres NP Unavailable [phone] Reason for Visit * Reason Comments Medication Refill Encounter Details Date Type Department Care Team (Late st Contact Info) Description 08/20/[address] [place] [address] Randee Castanon MD [address] [facility] [place] [address] Medication Refill Social History Tobacco Use Types [...] How often do you attend [facility] or jain services? More than 4 times per year [...] points; Administer PHQ-9 if positive 0 07/04/2023 [facility] [place] of Occupat ional Health - Occupational Stress [...] place to sleep or slept in a long term (including now)? No 06/17/2022 Education Answer Date Recorded What is the highest level of school you have completed or the highest degree you have received? Some college, no degree 12/12/2019 Sex and Gender Information Value Date Recorded Sex Assigned at Female 12/12/2019 6:30 PM PHOTO INTERN Gender Identity Female 12/12/2019 6:30 PM PHOTO INTERN Sexual Orientation Straight 04/04/2021 12 :18 PM CDT Travel History Travel Start Travel End [place] 12/06/2023 12/12/2023 COVID-19 Exposure Response Date Recorded In the last 10 days, have yo u been in contact with someone who was confirmed or suspected to have Coronavirus/COVID-19? No / Unsure 08/19/2023 3:49 PM CDT documented as of this encounter Miscellaneous Notes * Telephone Encounter - Paty Nielsen RN - 08/20/2023 4:07 PM CDT Prescription approved per [facility] Refill Protocol. Paty Nielsen RN * Telephone Encounter - Paty Nielsen RN - 08/20/2023 4:05 PM CDT Dx pended was acute bronchitis. Changed to asthma as per problem list. Also, patient was seen for an appointment to address asthma yesterday, routing to rerun the protocol with this dx. Paty Nielsen RN documented in this encounter Plan of Treatment Upcoming Encounters Date Type Department Care Team (Late st Contact Info) Description 03/19/2024 3:30 PM CDT Office Visit [facility] Specialty [facility] [address] [facility] [address] [place] [phone] Elmer Paul MD [address] [facility] [address] [place] [address] 04/16/2024 8:30 AM CDT Lab [facility] [address] [facility] [address] [place] [phone] 04/20/2024 8:45 AM CDT Office Visit [facility] [address] [facility] [address] [place] [phone] Lavern Pope MD [address] [facility] [address] [place] [address] documented as of this encounter Visit Diagnoses Diagnosis Mild persistent asthma with exacerbation- Primary Unspecified asthma, with exacerbation Acute bronchitis, unspecified organism documented in this encounter Additional Health Concerns Assessment Noted Time PHQ-9 Depression Total Score: 0 07/04/20 23 1:50 PM CDT documented as of this encounter Care Teams Laborer Tin Can Relationship Specialty Start Date End Date Carey Vuong MD [address] [facility] [place] [address] PCP - General 01/15/02 Mehreen Scott MD [address] [place] [phone] food chemist 12/15/19 Carey Vuong MD [address] [facility] [place] [address] Assigned PCP 02/22/21 Prema Hitchcock PA-C [address] [place] [address] Assigned Surgical Provider 11/04/21 Chidi Puckett MD [address] [place] [address] Assigned Sleep Provider 02/17/22 10/31/23 Harriet Lindsay Personal Advocate & Liaison (PAL) 06/17/22 Aisha Murdock PA-C [facility] [address] [place] [address] Assigned Neuroscience Provider 06/08/22 11/28/23 Lavern Pope MD [address] [facility] [address] [place] [address] Cardiovascular Disease 11/11/22 Lavern Pope MD [address] [facility] [address] [place], [place] [address] Assigned Heart and Vascular Provider 11/16/22 Elmer Paul MD [address] [place] [address] Allergy & Immunology 02/17/23 Elmer Paul MD [address] [place] [address] Assigned Allergy Provider 04/26/23 Batool Torres NP [address] [place] [address] Nurse Practitioner Pulmonary Disease 08/11/23 documented as of this encounter
--- OUTSIDE RECORDS SUMMARY | 2023-12-29 23:10 | XMS_ITS | Encounter Summary ---
Author Name Unknown Organization [facility] Address [address] [place] [address] Care Team Providers Care Second Miller Name Role Phone Carey Vuong MD Primary Care Provider [phone] Mehreen Scott MD Unavailable [phone] Carey Vuong MD Unavailable Prema Hitchcock PA-C Unavailable [phone] Chidi Puckett MD Unavai lable Harriet Lindsay Unavailable Unavailable Aisha Murdock PA-C Unavailable [phone] Lavern Pope MD Unavailable [phone] Lavern Pope MD Unavailable [phone] Elmer Paul MD Unavailable [phone] Elmer Paul MD Unavailable [phone] Batool Torres NP Unavailable Marlene Benoit NP Unavailable [phone] Batool Torres NP Unavailable [phone] Encounter Details Date Type Department Care Team (Late st Contact Info) Description 09/07/2023 MyC Medical Advice [facility] [address] [place] [address] Carey Vuong MD [address] [facility] [place] [address] Social History Tobacco Use Types Packs/Day Years [...] week 06/17/2022 How often do you attend [facility] or christianity services? More than 4 times per year 06/17/2022 Do you belong to any clubs o r organizations such as nondenominational groups, unions, fraternal or athletic groups, or [...] points; Administer PHQ-9 if positive 0 07/04/2023 [place] of Occupat ional Health - Occupational Stress [...] place to sleep or slept in a nursing home (including now)? No 06/17/2022 Adolescent Education Answer Date Record ed Getting School Help Needed Not on file 09/03 Education Answer Date Recorded What is the highest level of school you have completed or the highest degree you have received? Some college, no degree 12/12/2019 Sex and Gender Information Value Date Recorded Sex Assigned at Female 12/12/2019 6:30 PM KOHINOOR OPERATOR Gender Identity Female 12/12/2019 6:30 PM KOHINOOR OPERATOR Sexual Orientation Straight 04/04/2021 12 :18 PM CDT Travel History Travel Start Travel End [place] 12/06/2023 12/12/2023 COVID-19 Exposure Response Date Recorded In the last 10 days, have ele u been in contact with someone who was confirmed or suspected to have Coronavirus/COVID-19? No / Unsure 09/04/2023 10:07 AM CDT documented as of this encounter Plan of Treatment Upcoming Encounters Date Type Department Care Team (Late st Contact Info) Description 03/19/2024 3:30 PM CDT Office Visit [facility] [place] [address] [facility] [address] [place] [phone] Elmer Paul MD [address] [facility] [address] [place] [address] 04/16/2024 8:30 AM CDT Lab [facility] [address] [facility] [address] [place] [phone] 04/20/2024 8:45 AM CDT Office Visit [facility] [address] [facility] [place] [phone] Lavern Pope MD [address] [facility] [address] [place] [address] documented as of this encounter Visit Diagnoses Not on filedocumented in this encounter Additional Health Concerns Assessment Noted Time PHQ-9 Depression Total Score: 0 07/04/20 23 1:50 PM CDT documented as of this encounter Care Teams Second Miller Relationship Specialty Start Date End Date Carey Vuong MD [address] [facility] [place] [address] PCP - General 01/15/02 Mehreen Scott MD [address] [place] [phone] drum handler 12/15/19 Carey Vuong MD [address] [place] [address] Assigned PCP 02/22/21 Prema Hitchcock PA-C [address] [place] [address] Assigned Surgical Provider 11/04/21 Chidi Puckett MD [address] [place], [place] [address] Assigned Sleep Provider 02/17/22 10/31/23 Harriet Lindsay Personal Advocate & Liaison (PAL) 06/17/22 Aisha Murdock PA-C [facility] [address] [place] [address] Assigned Neuroscience Provider 06/08/22 11/28/23 Lavern Pope MD [address] [facility] [address] [place], [place] [address] Cardiovascular Disease 11/11/22 Lavern Pope MD [address] [facility] [address] [place], [place] [address] Assigned Heart and Vascular Provider 11/16/22 Elmer Paul MD [address] [place], [place] [address] Allergy & Immunology 02/17/23 Elmer Paul MD [address], [address] [place], [place] [address] Assigned Allergy Provider 04/26/23 Batool Torres NP [address] [place] [address] Nurse Practitioner Pulmonary Disease 08/11/23 [place] [address] [place] [address] Nurse Practitioner Nurse Practitioner 10/29/23 Batool Torres NP [address] [place] [address] Assigned Pulmonology Provider 12/25/23 documented as of this encounter
--- OUTSIDE RECORDS SUMMARY | 2023-12-29 23:10 | XMS_ITS | Encounter Summary ---
Author Name Unknown Organization [facility] Address [address] [place] [address] Care Team Providers Care Verifier Name Role Phone Carey Vuong MD Primary Care Provider [phone] Mehreen Scott MD Unavailable Caery Vuong MD Unavailable [phone] Prema Hitchcock PA-C Unavailable [phone] Chidi Puckett MD Unavai lable Harriet Lindsay Unavailable Unavailable Aisha Murdock PA-C Unavailable [phone] Lavern Pope MD Unavailable [phone] Lavern Pope MD Unavailable [phone] Elmer Paul MD Unavailable [phone] Elmer Paul MD Unavailable [phone] Batool Torres NP Unavailable Encounter Details Date Type Department Care Team (Late st Contact Info) Description 08/14/[address] [address] Cinthya Mejia RN Shortness of breath (Primary Dx); Cough Social History Tobacco Use Types Packs/Day [...] 06/17/2022 How often do you attend [facility] or taoism services? More than 4 times per year 06/17/2022 Do you belong to any clubs o r organizations such as adventist groups, unions, fraternal or athletic groups, or [...] points; Administer PHQ-9 if positive 0 07/04/2023 [facility] of Occupat ional Health - Occupational Stress [...] a senior living (including now)? No 06/17/2022 Education Answer Date Recorded What is the highest level of school you have completed or the highest degree you have received? Some college, no degree 12/12/2019 Sex and Gender Information Value Date Recorded Sex Assigned at Female 12/12/2019 6:[address] [employer]ICE Gender Identity Female 12/12/2019 6:[address] JUSTICE Sexual Orientation Straight 04/04/2021 12 :18 PM [...] Description 03/19/2024 3:30 PM CDT Office Visit [facility] [address] [facility] [address] [place] [phone] Elmer Paul MD [address] [facility] [address] [place] [address] 04/16/2024 8:30 AM CDT Lab [facility] [address] [facility] [address] [place] [phone] 04/20/2024 8:45 AM CDT Office [facility] [address] [facility] [address] [place] [phone] Lavern Pope MD [address] [facility] [address] [place] [id number] Scheduled Orders Name Type Priority Associated Diagnoses Orde r Schedule Pulmonary Function Test PFT Routine Shortness of breath Cough Expected: 08/14/2023 (Approximate), Expires: 08/14/2024 documented as of this encounter Results * General PFT Lab (Please always keep checked) (09/11/2023 7:54 AM CDT) FVC-Pred 3.37 L BREEZE PFT FVC-Pre 3.93 L BREEZE PFT FVC-%Pred-Pre 116 % BREEZE PFT FEV1-Pre 3.00 L BREEZE PFT FEV1-%Pred-Pre 110 % BREEZE PFT [id number] 81 % BREEZE PFT [id number]-Tsl 76 % BREEZE PFT FEFMax-Pred 6.99 L/sec BREEZE PFT FEFMax-Pre 6.60 L/sec BREEZE PFT FEFMax-%Pred-Pr e 94 % BREEZE PFT [id number] 2.71 L/sec BREEZE PFT [id number]-Ohg 2.47 L/sec BREEZE PFT BZV8336-%Pred-P re 91 % BREEZE PFT [id number] 3.12 L/sec BREEZE PFT DWD3264-%Pred-P ost 115 % BREEZE PFT ExpTime-Pre 7.76 sec BREEZE PFT FIFMax-Pre 5.91 L/sec BREEZE PFT VC-Pred 3.55 L BREEZE PFT VC-Pre 4.14 L BREEZE PFT VC-%Pred-Pre 116 % BREEZE PFT IC-Pred 2.47 L BREEZE PFT IC-Pre 3.48 L BREEZE PFT IC-%Pred-Pre 141 % BREEZE PFT ERV-Pred 1.23 L BREEZE PFT ERV-Pre 0.66 L BREEZE PFT ERV-%Pred-Pre 53 % BREEZE PFT [id number]-Tvkh 82 % BREEZE PFT [id number]-Fah 76 % BREEZE PFT FRCPleth-Pred 2.78 L [...] BREEZE PFT VA-%Pred-Pre 109 % BREEZE PFT [id number]-Bfpe 77 % BREEZE PFT [id number]-Xkt 73 % BREEZE PFT 09/11/2023 7:54 AM [...] for acceptability and reproducibility was met. Mily Johnson [facility] [id number] ?This interpretation has been electronically signed: ??Mily Johnson 09/11/2023 ??12:51:50 PM? Mily Johnson MD PFT ORDERABLES KLEVEREZRosalba PFT documented in this encounter Visit Diagnoses Diagnosis Shortness of breath- Primary Cough Shortness of breath Cough documented in this encounter Additional Health Concerns Assessment Noted Time PHQ-9 Depression Total Score: 0 07/04/20 23 1:50 PM CDT documented as of this encounter Care Teams Verifier Relationship Specialty Start Date End Date Carey Vuong MD [address] [place] [address] [place] [address] PCP - General 01/15/02 Mehreen Scott MD [address] [facility] [address] [place] [phone] dev ops engineer 12/15/19 Carey Vuong MD [address] [facility] [place] [address] Assigned PCP 02/22/21 Prema Hitchcock PA-C [address] [place] [address] Assigned Surgical Provider 11/04/21 Chidi Puckett MD [address] [place] [address] Assigned Sleep Provider 02/17/22 10/31/23 Harriet Lindsay Personal Advocate & Liaison (PAL) 06/17/22 Aisha Murdock PA-C [facility] [address] [place] [address] Assigned Neuroscience Provider 06/08/22 11/28/23 Lavern Pope MD [address] [facility] [address] [place] [id number] Cardiovascular Disease 11/11/22 Lavern Pope MD [address] [facility] [address] [facility] [address] [place] [phone] Assigned Heart and Vascular Provider 11/16/22 Elmer Paul MD [address] [place], [place] [address] Allergy & Immunology 02/17/23 Elmer Paul MD [address], [address] [place], [place] [address] Assigned Allergy Provider 04/26/23 Batool Torres NP [address] [place] [address] Nurse Practitioner Pulmonary Disease 08/11/23 documented as of this encounter
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
--- OUTSIDE RECORDS SUMMARY | 2023-12-29 23:10 | XMS_ITS | Encounter Summary ---
Author Name Unknown Organization [facility] Address [address] [place] [address] Care Team Providers Care Business Support Administrator Name Role Phone Carey Vuong MD Primary Care Provider [phone] Mehreen Scott MD Unavailable [phone] Carey Vuong MD Unavailable Prema Hitchcock PA-C Unavailable Chidi Puckett MD Unavai lable Harriet Lindsay Unavailable Unavailable Aisha Murdock PA-C Unavailable [phone] Lavern Pope MD Unavailable [phone] Lavern Pope MD Unavailable [phone] Elmer Paul MD Unavailable [phone] Elmer Paul MD Unavailable [phone] Batool Torres NP Unavailable Encounter Details Date Type Department Care Team (Latest Contact Info) Description 08/19/2023 Travel Social History Tobacco Use Types Packs/Day [...] week 06/17/2022 How often do you attend [facility] or yarsani services? More than 4 times per year [...] points; Administer PHQ-9 if positive 0 07/04/2023 [facility]at ional [...] place to sleep or slept in a usp (including now)? No 06/17/2022 Education Answer Date Recorded What is the highest level of school you have completed or the highest degree you have received? Some college, no degree 12/12/2019 Sex and Gender Information Value Date Recorded Sex Assigned at Female 12/12/2019 6:30 PM BOXCAR WEIGHER Gender Identity Female 12/12/2019 6:30 PM BOXCAR WEIGHER Sexual Orientation Straight 04/04/2021 12 :18 PM CDT Travel History Travel Start Travel End [place] 12/06/2023 12/12/2023 COVID-19 Exposure Response Date Recorded In the last 10 days, have yo u been in contact with someone who was confirmed or suspected to have Coronavirus/COVID-19? No / Unsure 08/19/2023 3:49 PM CDT documented as of this encounter Plan of Treatment Upcoming Encounters Date Type Department Care Team (Late st Contact Info) Description 03/19/2024 3:30 PM CDT Office Visit [address] [place] [address] Elmer Paul MD [address], [address] [place] [address] 04/16/2024 8:30 AM CDT Lab [facility] [address] [facility] [address] [place] [phone] 04/20/2024 8:45 AM CDT Office Visit [facility] [address] [facility] [address] [place] [phone] Lavern Pope MD [address] [facility] [address] [place] [id number] documented as of this encounter Visit Diagnoses Not on filedocumented in this encounter Additional Health Concerns Assessment Noted Time PHQ-9 Depression Total Score: 0 07/04/20 23 1:50 PM CDT documented as of this encounter Care Teams Business Support Administrator Relationship Specialty Start Date End Date Carey Vuong MD [address] [place] [address] [place] [address] PCP - General 01/15/02 Mehreen Scott MD [address] [facility] [address] [place] [phone] fiberglass quality technician 12/15/19 Carey Vuong MD [address] [place] [address] [place] [address] Assigned PCP 02/22/21 Prema Hitchcock PA-C [address] [place], [place] [address] Assigned Surgical Provider 11/04/21 Chidi Puckett MD [address] [place] [address] Assigned Sleep Provider 02/17/22 10/31/23 Harriet Lindsay Personal Advocate & Liaison (PAL) 06/17/22 Aisha Murdock PA-C [facility] [address] [place] [address] Assigned Neuroscience Provider 06/08/22 11/28/23 Lavern Pope MD [address] [facility] [address] [place], [place] [address] Cardiovascular Disease 11/11/22 Lavern Pope MD [address] [facility] [address] [place], [place] [address] Assigned Heart and Vascular Provider 11/16/22 Elmer Paul MD [address], [address] [place], [place] [address] Allergy & Immunology 02/17/23 Elmer Paul MD [address], [address] [place], [place] [address] Assigned Allergy Provider 04/26/23 Batool Torres, BOX OFFICE ATTENDANT [address] [place] [address] Nurse Practitioner Pulmonary Disease 08/11/23 documented as of this encounter
--- OUTSIDE RECORDS SUMMARY | 2023-12-29 23:10 | XMS_ITS | Encounter Summary ---
Author Name Unknown Organization [facility] Address [address] [place] [address] Care Team Providers Care Cardiothoracic Surgeon Name Role Phone Carey Vuong MD Primary Care Provider [phone] Mehreen Scott MD Unavailable [phone] Carey Vuong MD Unavailable [phone] Prema Hitchcock PA-C Unavailable [phone] Chidi Puckett MD Unavai lable Harriet Lindsay Unavailable Unavailable Aisha Murdock PA-C Unavailable [phone] Lavern Pope MD Unavailable [phone] Lavern Pope MD Unavailable [phone] Elmer Paul MD Unavailable [phone] Elmer Paul MD Unavailable [phone] Encounter Details Date Type Department Care Team (Latest Contact Info) Description 07/31/2023 Travel Social History Tobacco Use Types Packs/Day [...] 06/17/2022 How often do you attend [facility] or yarsanism services? More than 4 times [...] points; Administer PHQ-9 if positive 0 07/04/2023 [facility] of Occupat ional Health - [...] Sex Assigned at Female 12/12/2019 6:30 PM ANIMAL SCIENCE INSTRUCTOR Gender Identity Female 12/12/2019 6:30 PM ANIMAL SCIENCE INSTRUCTOR Sexual Orientation Straight 04/04/2021 12 :18 PM CDT Travel History Travel Start Travel End [place] 12/06/2023 12/12/2023 COVID-19 Exposure Response Date Recorded In the last 10 days, have yo u been in contact with someone who was confirmed or suspected to have Coronavirus/COVID-19? No / Unsure 07/31/2023 12:59 PM CDT documented as of this encounter Plan of Treatment Upcoming Encounters Date Type Department Care Team (Late st Contact Info) Description 03/19/2024 3:30 PM CDT Office Visit [facility] [place] [address] [facility] [address] [place] [phone] Elmer Paul MD [address] , [address] [place] [address] 04/16/2024 8:30 AM CDT Lab [facility] [address] [facility] [address] [place] [phone] 04/20/2024 8:45 AM CDT Office Visit [facility] [address] [facility] [address] [place] [phone] Lavern Pope MD [address] [facility] [address] [place] [id number] documented as of this encounter Visit Diagnoses Not on filedocumented in this encounter Additional Health Concerns Assessment Noted Time PHQ-9 Depression Total Score: 0 07/04/20 23 1:50 PM CDT documented as of this encounter Care Teams Cardiothoracic Surgeon Relationship Specialty Start Date End Date Carey Vuong MD [address] [facility] [place] [address] PCP - General 01/15/02 Mehreen Scott MD [address] [facility] 100 [place] [phone] lsw 12/15/19 Carey Vuong MD [address] [facility] [place] [address] Assigned PCP 02/22/21 Prema Hitchcock PA-C [address] [facility] [place] [address] Assigned Surgical Provider 11/04/21 Chidi Puckett MD [address] [facility] 106 [place], [place] [id number] Assigned Sleep Provider 02/17/22 10/31/23 Harriet Lindsay Personal Advocate & Liaison (PAL) 06/17/22 Aisha Murdock PA-C [facility] [address] [place] [address] Assigned Neuroscience Provider 06/08/22 11/28/23 Lavern Pope MD [address] [place], [place] [address] Cardiovascular Disease 11/11/22 Lavern Pope MD [address] [place], [place] [address] Assigned Heart and Vascular Provider 11/16/22 Elmer Paul MD [address], [address] [place], [place] [address] Allergy & Immunology 02/17/23 Elmer Paul MD [address], [address] [place], [place] [address] Assigned Allergy Provider 04/26/23 documented as of this encounter
--- OUTSIDE RECORDS SUMMARY | 2023-12-29 23:10 | XMS_ITS | Encounter Summary ---
Author Name Unknown Organization [facility] Address [address] [place] [address] Care Team Providers Care Industrial Gas Servicer Supervisor Name Role Phone Carey Vuong MD Primary Care Provider [phone] Mehreen Scott MD Unavailable [phone] Carey Vuong MD Unavailable Prema Hitchcock PA-C Unavailable [phone] Chidi Puckett MD Unavai lable Harriet Lindsay Unavailable Unavailable Aisha Murdock PA-C Unavailable Lavern Pope MD Unavailable [phone] Lavern Pope MD Unavailable Elmer Paul MD Unavailable [phone] Elmer Paul MD Unavailable [phone] Batool Torres NP Unavailable [phone] Encounter Details Date Type Department Care Team (Latest Contact Info) Description 08/11/2023 Travel Social History Tobacco Use Types Packs/Day [...] often do you attend [facility] or amish services? More than 4 times per year 06/17/2022 Do you belong to any clubs o r organizations such as bahai groups, unions, fraternal or athletic groups, or [...] points; Administer PHQ-9 if positive 0 07/04/2023 [facility] of Occupat ional Health [...] place to sleep or slept in a snf (including now)? No 06/17/2022 Education Answer Date Recorded What is the highest level of school you have completed or the highest degree you have received? 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 Unable to assess 08/11/2023 10:34 AM CDT documented as of this encounter Plan of Treatment Upcoming Encounters Date Type Department Care Team (Late st Contact Info) Description 03/19/2024 3:30 PM CDT Office Visit [facility] [address] [facility] [address] [place] [address] Elmer Paul MD [address], [address] [place] [address] 04/16/2024 8:30 AM CDT Lab [facility] [address] [facility] [address] [place] [phone] 04/20/2024 8:45 AM CDT Office Visit [facility] [address] [facility] [address] [place] [phone] Lavern Pope MD [address] [facility] [address] [place] [phone] documented as of this encounter Visit Diagnoses Not on filedocumented in this encounter Additional Health Concerns Assessment Noted Time PHQ-9 Depression Total Score: 0 07/04/20 23 1:50 PM CDT documented as of this encounter Care Teams Industrial Gas Servicer Supervisor Relationship Specialty Start Date End Date Carey Vuong MD [address] [place] [address] [place] [address] PCP - General 01/15/02 Mehreen Scott MD [address] [facility] 100 [place] [phone] pairer 12/15/19 Carey Vuong MD [address] [place] [address] [place] [address] Assigned PCP 02/22/21 Prema Hitchcock PA-C [address] [facility] [address] [place] [address] Assigned Surgical Provider 11/04/21 Chidi Puckett MD [address] [place] [address] Assigned Sleep Provider 02/17/22 10/31/23 Harriet Lindsay Personal Advocate & Liaison (PAL) 06/17/22 Aisha Murdock PA-C [facility] [address] [place] [address] Assigned Neuroscience Provider 06/08/22 11/28/23 Lavern Pope MD [address] [facility] [address] [facility] [address] [place], [place] [address] Cardiovascular Disease 11/11/22 Lavern Pope MD [address] [facility] [address] [place], [place] [address] Assigned Heart and Vascular Provider 11/16/22 Elmer Paul MD [address], [address] [place], [place] [address] Allergy & Immunology 02/17/23 Elmer Paul MD [address] [place], [place] [address] Assigned Allergy Provider 04/26/23 Batool Torres, TABULATING CLERK [address] [place] [address] Nurse Practitioner Pulmonary Disease 08/11/23 documented as of this encounter
--- OUTSIDE RECORDS SUMMARY | 2023-12-29 23:10 | XMS_ITS | Encounter Summary ---
Author Name Unknown Organization [facility] Address [address] [place] [address] Care Team Providers Care Social Security Benefits Interviewer Name Role Phone Carey Vuong MD Primary Care Provider [phone] Mehreen Scott MD Unavailable [phone] Carey Vuong MD Unavailable Prema Htichcock PA-C Unavailable [phone] Chidi Puckett MD Unavai lable Harriet Lindsay Unavailable Unavailable Aisha Murdock PA-C Unavailable [phone] Lavern Pope MD Unavailable [phone] Lavern Pope MD Unavailable [phone] Elmer Paul MD Unavailable [phone] Elmer Paul MD Unavailable [phone] Reason for Visit * Diagnostic Imaging XR (Routine) - Pending Review Specialty Diagnoses / Procedures Referred By Contdhara t Referred To Contact Radiology. Diagnoses Cough, unspecified type Procedures XR Chest 2 Views Kayleigh Alexander PA-C [address] [place] [address] Referral ID Status Reason Start Date Expiration Date V isits Requested Visits Authorized [id number] Pending Review 07/31/2023 07/30/2024 1 1 Encounter Details Date Type Department Care Team (Latest Contact Info) Description 07/31/2023 2:05 PM CDT Ancillary Procedure [facility] [address] [facility] [address] [place] [address] Kayleigh Alexander, BIN [address] [facility] [place] [id number] Cough, unspecified type Social History Tobacco Use Types Packs/Day Years [...] often do you attend chur ch or advent services? More than 4 times [...] points; Administer PHQ-9 if positive 0 07/04/2023 [facility] of Occupat ional [facility] - Occupational Stress Questionnaire Answer Date Recorded [...] Sex Assigned at Female 12/12/2019 6:30 PM ENVIRONMENTAL PROTECTION FORESTER Gender Identity Female 12/12/2019 6:30 PM ENVIRONMENTAL PROTECTION FORESTER Sexual Orientation Straight 04/04/2021 12 :18 PM CDT Travel History Travel Start Travel End [place] 12/06/2023 12/12/2023 COVID-19 Exposure Response Date Recorded [...] PM CDT Office Visit [facility] [address] [facility] [address] [place] [phone] Elmer Paul MD [address] [facility] 200 [place] [address] 04/16/2024 8:30 AM CDT Lab [facility] [address] [facility] [address] [place] [phone] 04/20/2024 8:45 AM CDT Office [facility] [address] [facility] [address] [place] [phone] Lavern Pope MD [address] [facility] [address] [place], [place] [address] documented as of this encounter Procedures Procedure Name Priority Date/Time Associated Diagnosis Comments XR CHEST 2 VIEWS Routine 07/31/2023 2:08 PM CDT Cough, unspecified type documented in this encounter Results * XR Chest 2 Views (07/31/2023 2:08 PM CDT) Anatomical Region Laterality Modality Chest Computed Radiogr aphy Impressions 07/31/2023 2:11 PM CDT IMPRESSION: Heart is normal in size. Lungs are clear. BARRETT PEREZ MD Narrative 07/31/2023 2:11 PM CDT XR CHEST 2 VIEWS 07/31/2023 2:08 PM HISTORY: Cough, unspecified type COMPARISON: None. Procedure Note Barrett Perez MD - 07/31/2023 XR CHEST 2 VIEWS 07/31/2023 2:08 PM HISTORY: Cough, unspecified type COMPARISON: None. IMPRESSION: Heart is normal in size. Lungs are clear. BARRETT PEREZ MD Kayleigh Alexander PA-C IMG DIAGNOSTIC IM AGING ORDERABLES documented in this encounter Visit Diagnoses Diagnosis Cough, unspecified type documented in this encounter Additional Health Concerns Assessment Noted Time PHQ-9 Depression Total Score: 0 07/04/20 23 1:50 PM CDT documented as of this encounter Care Teams Social Security Benefits Interviewer Relationship Specialty Start Date End Date Carey Vuong MD [address] [facility] [place] [address] PCP - General 01/15/02 Mehreen Scott MD [address] [place] [phone] grab jack worker 12/15/19 Carey Vuong MD [address] [facility] [place] [address] Assigned PCP 02/22/21 Prema Hitchcock PA-C [address] [facility] [address] [place] [address] Assigned Surgical Provider 11/04/21 Chidi Puckett MD [address] [facility] [address] [place], [place] [address] Assigned Sleep Provider 02/17/22 10/31/23 Harriet Lindsay Personal Advocate & Liaison (PAL) 06/17/22 Aihsa Murdock PA-C [facility] [address], [place] [address] Assigned Neuroscience Provider 06/08/22 11/28/23 Lavern Pope MD [address] [facility] [address] [place], [place] [address] Cardiovascular Disease 11/11/22 Lavern Pope MD [address] [facility] [address] [place], [place] [address] Assigned Heart and Vascular Provider 11/16/22 Elmer Paul MD [address], [address] [place] [address] Allergy & Immunology 02/17/23 Elmer Paul MD [address], [address] [place], [place] [address] Assigned Allergy Provider 04/26/23 documented as of this encounter
--- OUTSIDE RECORDS SUMMARY | 2023-12-29 23:10 | XMS_ITS | Encounter Summary ---
Author Name Unknown Organization [place] Address [address] [place] [address] Care Team Providers Care Scrap Sorter Name Role Phone Carey Vuong MD Primary Care Provider [phone] Mehreen Scott MD Unavailable [phone] Carey Vuong MD Unavailable Prema Hitchcock PA-C Unavailable [phone] Chidi Puckett MD Unavai lable Harriet Lindsay Unavailable Unavailable Aisha Murdock PA-C Unavailable [phone] Lavern Pope MD Unavailable [phone] Lavern Pope MD Unavailable [phone] Elmer Paul MD Unavailable [phone] Elmer Paul MD Unavailable [phone] Batool Torres NP Unavailable Reason for Referral * CV Testing (Routine) - Denied Specialty Diagnoses / Procedures Referred By Contac t Referred To Contact Cardiology Diagnoses Cough, unspecified type SOB (shortness of breath) Procedures Echocardiogram Exercise Stress ZZ[facility] DOPPLER ECHO PULSED, F/U OR LIMITED ZZ[facility] DOPPLER ECHO COLOR FLOW VELOCITY MAP ZZ[facility] ECHO HEART XTHORACIC, STRESS/REST ZZHC ECHO TRANSTHORACIC, STRESS/REST W CONTRAST [facility] ECHO TRANSTHORACIC, STRESS/REST W/O CONTRAST ZZ[facility] IV PUSH SINGLE, INITIAL SUBSTANCE ZZC INJECTION, PERFLUTREN LIPID MICROSPHERES, PER ML ZZHC STATISTIC IV PUSH SINGLE INITIAL SUBSTANCE NH DOPPLER ECHO PULSED, F/U OR LIMITED NH DOPPLER ECHO COLOR FLOW VELOCITY MAP NH ECHO HEART XTHORACIC, STRESS/REST NH INJECTION, PERFLUTREN LIPID MICROSPHERES, PER ML NH IV PUSH SINGLE, INITIAL SUBSTANCE NH ECHO HEART XTHORACIC, STRESS/REST NH ECHO HEART XTHORACIC, STRESS/REST HC DOPPLER ECHO PULSED, F/U OR LIMITED HC DOPPLER ECHO COLOR FLOW VELOCITY MAP HC IV PUSH SINGLE, INITIAL SUBSTANCE HC STATISTIC IV PUSH SINGLE INITIAL SUBSTANCE HC ECHO TRANSTHORACIC, STRESS/REST W CONTRAST HC ECHO TRANSTHORACIC, STRESS/REST W/O CONTRAST Denise Alexander PA-C [address] [place] [address] [facility] [address] [place] [address] Referral ID Status Reason Start Date Expiration Date Visits Re quested Visits Authorized [id number] Denied 08/12/2023 08/11/2024 1 0 * Consultation (Routine: Next available opening) - Closed Specialty Diagnoses / Procedures Referred By Pinky t Referred To Contact Pulmonary Disease Diagnoses Cough, unspecified type SOB (shortness of breath) Denise Alexander PA-C [address] [place] [address] Referral ID Status Reason Start Date Expiration Date Visits Re quested Visits Authorized [id number] Closed 08/11/2023 08/10/2024 1 1 Question Answer Reason for Referral: Asthma Scheduling Instructions: [facility] will call you to coordinate your care as prescribed by the provider. If you don? t hear from a sales representative graphic art within 2 business days, please call . Comments Please be aware that coverage of these services is subject to the terms and limitations of your health insurance plan. Call member services at your health plan with any benefit or coverage questions. [facility] will call you to coordinate your care as prescribed by the provider. If you don? t hear from a sales representative graphic art within 2 business days, please call . Reason for Visit * Reason Onset Date Comments MyChart Communication 08/04/2023 Visit foll ow up questions Encounter Details Date Type Department Care Team (Latest Contact Info) Description 08/04/2023 MyC Medical Advice [facility] Clinic [facility] [place] [address] Carey Vuong MD [address] [facility] [place] [address] MyChart Communication (Visit follow up que... Social History Tobacco Use Types Packs/Day Years [...] often do you attend chur ch or restorationism services? More than 4 times [...] points; Administer PHQ-9 if positive 0 07/04/2023 [facility] of Occupat ional Health - Occupational [...] Sex Assigned at Female 12/12/2019 6:30 PM CAMPAIGN COORDINATOR Gender Identity Female 12/12/2019 6:30 PM CAMPAIGN COORDINATOR Sexual Orientation Straight 04/04/2021 12 :18 PM CDT Travel History Travel Start Travel End [place] 12/06/2023 12/12/2023 COVID-19 Exposure Response Date Recorded In the last 10 days, have yo u been in contact with someone who was confirmed or suspected to have Coronavirus/COVID-19? Unable to assess 08/11/2023 10:34 AM CDT documented as of this encounter Miscellaneous Notes * Telephone Encounter - Denise Alexander PA-C - 08/12/2023 3:57 PM CDT I have placed an order. Thank you. * Telephone Encounter - Marcos Thomas RN - 08/11/2023 10:20 AM CDT [employer] message sent at this time. Marcos Solomon RN 08/11/2023 at 10:20 AM * Telephone Encounter - Denise Alexander PA-C - 08/11/2023 8:57 AM CDT It appears an order for the stress echo was placed already, please be sure she has this scheduled. Also, I have placed a referral to pulmonary medicine as well. Thank you, Denise Alexander PA-C * Telephone Encounter - Marcos Thomas RN - 08/06/2023 4:56 PM CDT Called and relayed provider message below. Patient would like order for stress echo and pulmonologyreferral. Patient was informed she would be contacted to schedule. Please place order and referral. Marcos Solomon RN 08/06/2023 at 4:56 PM * Telephone Encounter - Denise Alexander PA-C - 08/06/2023 3:39 PM CDT Perhaps it is time to do some cardiac testing if she is having SOB with exertion. We can order a Stree echo. Also, I will place a referral for pulmonary, as she should see them if the cough has continued. 2. Her blood tests looked fine. The carbon dioxide is consistent and stable to labs done on her in the past. 3. A urine culture was done on Jul 29, and did not show a UTI. If she is having symptoms of a UTI, she needs to make an appointment to be seen. 4. If she has new onset back pain and bloating, she may need an appointment for this. * Telephone Encounter - Marcos Thomas RN - 08/06/2023 2:35 PM CDT Received call from patient with multiple concerns. 1) Patient is concerned with ongoing cough and SOB with exertion. Patient states chest tightness seems to worsen with exertion. Patient states she felt good on Friday, but is now having worsening symptoms. Patient states she completed prednisone yesterday (notes she lost her last pill so was one pill short of completion). Patient is wondering next steps regarding ongoing symptoms from OV 07/31/23. 2) Patient is inquiring about follow up on test results from 07/31/23. Patient particularly concerned with carbon dioxide levels. Patient feels that her SOB is related to CO2 levels. 3) Patient states she discussed urinary urgency and urinary pressure during OV 07/31/23. Patient is wondering if she has a UTI. Patient also experiencing urinary incontinence at times. 4) Patient also notes right back pain on right side of spine, which started 4 days ago. Patient notes she is super bloated today. Patient is using rescue inhaler every 4 hours, feels that it is not helping. Please see patient MyChart message and advise. Marcos Solomon RN 08/06/2023 at 2:45 PM * Addendum Note - Denise Alexander PA-C - 08/04/2023 1:48 PM CDTAddended by: DENISE ALEXANDER on: 08/12/2023 03:57 PM Modules accepted: Orders documented in this encounter Plan of Treatment Upcoming Encounters Date Type Department Care Team (Late st Contact Info) Description 03/19/2024 3:30 PM CDT Office Visit [facility] [address] [facility] [address] [place] [phone] Elmer Paul MD [address] [facility] [address] [place] [address] 04/16/2024 8:30 AM CDT Lab [facility] [address] [facility] [address] [place] [phone] 04/20/2024 8:45 AM CDT Office Visit [facility] [address] [facility] [address] [place] [phone] Lavern Pope MD [address] [facility] [address] [place] [address] Scheduled Orders Name Type Priority Associated Diagnoses Orde r Schedule Echocardiogram Exercise Stress Echocardiography Routine Cough, unspecified type SOB (shortness of breath) Expected: 08/13/2023 (Approximate), Expires: 08/12/2024 Scheduled Referrals Name Type Priority Associated Diagnoses Orde r Schedule Adult Pulmonary Medicine Cabinet Mounter Referral Referral Routine: Next available opening Cough, unspecified type SOB (shortness of breath) Expected: 08/12/2023 (Approximate), Expires: 08/06/2024 documented as of this encounter Visit Diagnoses Diagnosis Cough, unspecified type- Primary SOB (shortness of breath) Shortness of breath documented in this encounter Additional Health Concerns Assessment Noted Time PHQ-9 Depression Total Score: 0 07/04/20 23 1:50 PM CDT documented as of this encounter Care Teams Scrap Sorter Relationship Specialty Start Date End Date Carey Vuong MD [address] [facility] [address] PCP - General 01/15/02 Mehreen Scott MD [address] [place] [address] [address] [place] [address] helper/driver 12/15/19 Carey Vuong MD [address] [facility] [place] [address] Assigned PCP 02/22/21 Prema Hitchcock PA-C [address] [place] [address] Assigned Surgical Provider 11/04/21 Chidi Puckett MD [address] [facility] [address] [place] [address] Assigned Sleep Provider 02/17/22 10/31/23 Harriet Lindsay Personal Advocate & Liaison (PAL) 06/17/22 Aisha Murdock PA-C [facility] [address] [facility] [place] [address] Assigned Neuroscience Provider 06/08/22 11/28/23 Lavern Pope MD [address] [place] [address] Cardiovascular Disease 11/11/22 Lavern Pope MD [address] [place] [address] Assigned Heart and Vascular Provider 11/16/22 Elmer Paul MD [address] [place] [id number] Allergy & Immunology 02/17/23 Elmer Paul MD [address] [place] [address] Assigned Allergy Provider 04/26/23 Batool Torres NP [address] [place] [address] Nurse Practitioner Pulmonary Disease 08/11/23 documented as of this encounter
--- OUTSIDE RECORDS SUMMARY | 2023-12-29 23:10 | XMS_ITS | Encounter Summary ---
Author Name Unknown Organization [place] Address [address] [place] [address] Care Team Providers Care Pipe Jeeper Name Role Phone Carey Vuong MD Primary Care Provider [phone] Mehreen Scott MD Unavailable [phone] Carey Vuong MD Unavailable Prema Hitchcock PA-C Unavailable Chidi Puckett MD Unavai lable Harriet Lindsay Unavailable Unavailable Aisha Murdock PA-C Unavailable [phone] Lavern Pope MD Unavailable [phone] Lavern Pope MD Unavailable Elmer Paul MD Unavailable [phone] Elmer Paul MD Unavailable [phone] Batool Torres NP Unavailable Encounter Details Date Type Department Care Team (Late st Contact Info) Description 08/21/[address] [place] [address] Carey Vuong MD [address] [facility] [address] [place], [place] [address] Social History Tobacco Use Types Packs/Day Years [...] do you attend [facility] or anabaptist services? More than 4 times per year 06/17/2022 Do you belong to any clubs o r organizations such as adventism groups, unions, fraternal or athletic groups, or [...] points; Administer PHQ-9 if positive 0 07/04/2023 [facility] of Occupat ional Health - Occupational Stress [...] Sex Assigned at Female 12/12/2019 6:30 PM BRAND ATTENDANT Gender Identity Female 12/12/2019 6:30 PM BRAND ATTENDANT Sexual Orientation Straight 04/04/2021 12 :18 [...] Telephone Encounter - Paty Nielsen RN - 08/21/2023 11:07 AM CDT Called patient. She is leaving on her trip on 08/24. She is in agreement with provider's recommendations and in agreement that the stress test is not necessary at this time she would like to see how she does on the treatment-she started yesterday so too soon to tell if improving. She is hopeful that the abx will help and happy to go on her trip. She will call if she needs anything. Paty Nielsen RN * Telephone Encounter - Paty Nielsen RN - 08/21/2023 10:36 AM CDT Images from the original note were not included. Carey Vuong MD Rasmussen, Katie J, PA-C; Venkat Ea Sb3/5 Vinicio Gonzaelz (Rn) I would ask PAL3 to call and see how she is doing after prednisone and zpack started. I'm forwarding to PAL to address. If better, we could hold off on stress test. Carey Lynn Messages ----- Message ----- From: Kayleigh Alexander PA-C Sent: 08/20/2023 10:45 AM CDT To: Carey Vuong MD Subject: FW: [facility] DENIED ECHO STRESS TEST FOR DOS: Camila, I saw this patient for cough and SOB a little while ago now. She continues to have symptoms and we have discussed her case. It appears you saw her yesterday. In continued workup, I had ordered a stress test as she had significant SOB with exertion, but I just got a denial for this test. You saw her yesterday in clinic for similar reasons. Did you guys discuss this at all? Should I cancel this order altogether? Perhaps we can discuss this further? Thank you, Kayleigh Alexander PA-C ----- Message ----- From: Yuriy Sweeney V Sent: 08/18/2023 7:35 AM CDT To: Kayleigh Alexander PA-C Subject: [facility] DENIED ECHO STRESS TEST FOR DOS: * I received letter from [facility] with denial reason for required service for patient. Patient: DANIELLE GARZA Service Ref #: [id number] Group #: [id number] We review health care services requested for coverage under the terms of your health benefit plan to determine if they are medically necessary, as defined in your plan document. We received a request to review outpatient services for you. Based on the information submitted, we have determined that the requested service(s) is/are not medically necessary. This determination was rendered by Chef Dovunque on behalf of [facility]. Please note that the information in this letter is not a treatment decision. Treatment decisions are made between you and your physician. Coverage for these services is subject to the terms and conditions of your health benefit plan including exclusions, limitations, conditions and patient eligibility. You are responsible for deductibles, coinsurance, copayments and items not covered by the plan. If you would like your physician or health plant health care technician to discuss this case with our physician or clinical reviewer, he or she may call the [facility] Clinical Request Line at: with ref# [id number]. Please inform patient of next step for further decision. Thank you, Yuriy Santo Auth Team documented in this encounter Plan of Treatment Upcoming Encounters Date Type Department Care Team (Late st Contact Info) Description 03/19/2024 3:30 PM CDT Office Visit [facility] Specialty [facility] [address] [place] [address] [address] [place] [phone] Elmer Paul MD [address] [facility] [address] [place], [place] [address] 04/16/2024 8:30 AM CDT Lab [facility] Heart [facility] [address] [facility] [address] [place] [address] 04/20/2024 8:45 AM CDT Office Visit [facility] Heart [facility] [address] [facility] [address] [place] [phone] Lavern Pope MD [address] [facility] [address] [place] [id number] documented as of this encounter Visit Diagnoses Not on filedocumented in this encounter Additional Health Concerns Assessment Noted Time PHQ-9 Depression Total Score: 0 07/04/20 23 1:50 PM CDT documented as of this encounter Care Teams Pipe Jeeper Relationship Specialty Start Date End Date Carey Vuong MD [address] [place] [address] [place] [address] PCP - General 01/15/02 Mehreen Scott MD [address] [facility] [address] [place] [address] sign language translator 12/15/19 [place] [address] [place] [address] [place] [address] Assigned PCP 02/22/21 Prema Hitchcock PA-C [address] [facility] [place] [address] Assigned Surgical Provider 11/04/21 Chidi Puckett MD [address] [facility] [address] [place], [place] [address] Assigned Sleep Provider 02/17/22 10/31/23 Harriet Lindsay Personal Advocate & Liaison (PAL) 06/17/22 Aisha Murdock PA-C [facility] [address] [place] [address] Assigned Neuroscience Provider 06/08/22 11/28/23 Lavern Pope MD [address] [place] [address] Cardiovascular Disease 11/11/22 Lavern Pope MD [address] [facility] [address] [facility] [address] [place] [id number] Assigned Heart and Vascular Provider 11/16/22 Elmer Paul MD [address] [place] [address] Allergy & Immunology 02/17/23 Elmer Paul MD [address] [place] [address] Assigned Allergy Provider 04/26/23 Batool Torres NP [address] [facility] [place] [address] Nurse Practitioner Pulmonary Disease 08/11/23 documented as of this encounter
[2023-12-29 23:11] LABS: Basophils Absolute Auto 0.04 K/uL (0.00-0.30); Basophils Percent Auto 0.4 % (0.0-3.0); Eosinophils Absolute Auto 0.37 K/uL (0.00-0.50); Eosinophils Percent Auto 3.4 % (0.0-7.0); Immature Granulocytes Abs Auto 0.13 K/uL (0.00-0.30); Immature Granulocytes Pct Auto 1.2 %; Lymphocytes Absolute Auto 2.94 K/uL (0.90-2.90); Lymphocytes Percent Auto 27.1 % (20-44); Mean Corpuscular HGB Conc 33 gm/dL (32-36); Mean Corpuscular Hemoglobin 32 pg (26-34); Mean Corpuscular Volume 97 fL (80-100); Monocytes Percent Auto 7.5 % (0.0-11.0); Neutrophils Absolute Auto 6.56 K/uL (1.7-7.0); Neutrophils Percent Auto 60.4 % (42.0-72.0); Platelet Count* 291 K/uL (140-440); RDW Coefficient of Variation % 12.1 % (11.5-15.5)
--- OUTSIDE RECORDS SUMMARY | 2023-12-29 23:11 | XMS_ITS | Encounter Summary ---
Author Name Unknown Organization [place] Address [address] [place] [address] Care Team Providers Care Insulating Machine Operator Name Role Phone Carey Vuong MD Primary Care Provider [phone] Mehreen Scott MD Unavailable [phone] Carey Vuong MD Unavailable Prema Hitchcock PA-C Unavailable [phone] Chidi Puckett MD Unavai lable Harriet Lindsay Unavailable Unavailable Aisha Murdock PA-C Unavailable [phone] Lavern Pope MD Unavailable [phone] Lavern Pope MD Unavailable [phone] Elmer Paul MD Unavailable [phone] Elmer Paul MD Unavailable [phone] Reason for Visit * Reason Comments Cough Entered automaticall y based on patient selection in [employer]. Encounter Details Date Type Department Care Team (Late st Contact Info) Description 07/30/2023 9:40 AM CDT E-Visit [address] [place] [address] Carey Vuong MD [address] [facility] [place] [id number] Cough (Entered automatically based on andree... Social History Tobacco Use Types Packs/Day Years [...] How often do you attend [facility] or congregational services? More than 4 times per year [...] points; Administer PHQ-9 if positive 0 07/04/2023 [facility] [place] of Occupat ional Health - Occupational Stress [...] place to sleep or slept in a [facility] (including now)? No 06/17/2022 Education Answer Date Recorded What is the highest level of school you have completed or the highest degree you have received? Some college, no degree 12/12/2019 Sex and Gender Information Value Date Recorded Sex Assigned at Female 12/12/2019 6:30 PM ROD BUSTER HELPER Gender Identity Female 12/12/2019 6:30 PM ROD BUSTER HELPER Sexual Orientation Straight 04/04/2021 12 :18 PM CDT Travel History Travel Start Travel End [place] 12/06/2023 12/12/2023 COVID-19 Exposure Response Date Recorded In the last 10 days, have yo u been in contact with someone who was confirmed or suspected to have Coronavirus/COVID-19? No / Unsure 07/31/2023 12:59 PM CDT documented as of this encounter Miscellaneous Notes * Telephone Encounter - Ruthie Brown - 07/31/2023 9:15 AM CDT Outgoing call spoke to patient. Scheduled with Kayleigh Alexander for today July 31 arrive at 1:10pm. Thank you Og Zamudio Grader Operator * Telephone Encounter - Carey Vuong MD - 07/30/2023 5:44 PM CDT Provider E-Visit time total (minutes): NA documented in this encounter Plan of Treatment Upcoming Encounters Date Type Department Care Team (Late st Contact Info) Description 03/19/2024 3:30 PM CDT Office Visit [facility] Specialty [facility] [address] [facility] 200 [place] [address] Elmer Paul MD [address] [facility] [address] [place] [id number] 04/16/2024 8:30 AM CDT Lab [facility] [address] [facility] [address] [place] [phone] 04/20/2024 8:45 AM CDT Office Visit [facility] [address] [facility] [address] [place] [phone] Lavern Pope MD [address] [facility] [address] [place] [address] documented as of this encounter Visit Diagnoses Diagnosis Subacute cough- Primary Cough documented in this encounter Additional Health Concerns Assessment Noted Time PHQ-9 Depression Total Score: 0 07/04/20 23 1:50 PM CDT documented as of this encounter Care Teams Insulating Machine Operator Relationship Specialty Start Date End Date Carey Vuong MD [address] [facility] [place] [address] PCP - General 01/15/02 Mehreen Scott MD [address] [place] [address] clinical pharmacy technician 12/15/19 Carey Vuong MD [address] [facility] [place] [address] Assigned PCP 02/22/21 Prema Hitchcock PA-C [address] [place] [address] Assigned Surgical Provider 11/04/21 Chidi Puckett MD [address] [facility] [address] [place], [place] [address] Assigned Sleep Provider 02/17/22 10/31/23 Harriet Lindsay Personal Advocate & Liaison (PAL) 06/17/22 Aisha Murdock PA-C [facility] [address] [place] [address] Assigned Neuroscience Provider 06/08/22 11/28/23 Lavern Pope MD [address] [place], [place] [address] Cardiovascular Disease 11/11/22 Lavern Pope MD [address] [place] [address] Assigned Heart and Vascular Provider 11/16/22 Elmer Palu MD [address] [place] [address] Allergy & Immunology 02/17/23 Elmer Paul MD [address] [place] [address] Assigned Allergy Provider 04/26/23 documented as of this encounter
--- OUTSIDE RECORDS SUMMARY | 2023-12-29 23:11 | XMS_ITS | Encounter Summary ---
Author Name Unknown Organization [facility] Address [address] [place] [address] Care Team Providers Care Superintendent Ammunition Storage Name Role Phone Carey Vuong MD Primary Care Provider [phone] Mehreen Scott MD Unavailable [phone] Carey Vuong MD Unavailable Prema Hitchcock PA-C Unavailable +[phone] Chidi Puckett MD Unavai lable Harriet Lindsay Unavailable Unavailable Aisha Murdock PA-C Unavailable [phone] Lavern Pope MD Unavailable [phone] Lavern Pope MD Unavailable [phone] Elmer Paul MD Unavailable [phone] Elmer Paul MD Unavailable [phone] Encounter Details Date Type Department Care Team (Latest Contact Info) Description 07/09/2023 Travel Social History Tobacco Use Types Packs/Day Years Used Date Smoking Tobacco: Former Cigarettes 0 10 Cigars Quit: 12/01/19 23 Smokeless Tobacco: Never Comments:smokes a single cig [...] [facility] or episcopal services? More than 4 times per year [...] 0 07/04/2023 [facility] of Occupat ional Health - [...] place to sleep or slept in a custodial (including now)? No 06/17/2022 Education Answer Date Recorded What is the highest level of school you have completed or the highest degree you have received? Some college, no degree 12/12/2019 Sex and Gender Information Value Date Recorded Sex Assigned at Female 12/12/2019 6:30 PM ALARM SECURITY OR SURVEILLANCE MONITOR Gender Identity Female 12/12/2019 6:30 PM ALARM SECURITY OR SURVEILLANCE MONITOR Sexual Orientation Straight 04/04/2021 12 :18 PM CDT Travel History Travel Start Travel End [place] 12/06/2023 12/12/2023 COVID-19 Exposure Response Date Recorded In the last 10 days, have yo u been in contact with someone who was confirmed or suspected to have Coronavirus/COVID-19? No / Unsure 07/09/2023 9:13 AM CDT documented as of this encounter Plan of Treatment Upcoming Encounters Date Type Department Care Team (Late st Contact Info) Description 03/19/2024 3:30 PM CDT Office Visit [facility] [address] [facility] [address] [place] [phone] Elmer Paul MD [address] [facility] [address] [place] [id number] 04/16/2024 8:30 AM CDT Lab [facility] [address] [facility] [address] [place] [phone] 04/20/2024 8:45 AM CDT Office Visit [facility] [address] [facility] [address] [place] [phone] Lavern Pope MD [address] [facility] [address] [place] [id number] documented as of this encounter Visit Diagnoses Not on filedocumented in this encounter Additional Health Concerns Assessment Noted Time PHQ-9 Depression Total Score: 0 07/04/20 23 1:50 PM CDT documented as of this encounter Care Teams Superintendent Ammunition Storage Relationship Specialty Start Date End Date Carey Vuong MD [address] [facility] [place] [id number] PCP - General 01/15/02 Mehreen Scott MD [address] [facility] [address] [place] [phone] dry chain worker 12/15/19 Carey Vuong MD [address] [facility] [place] [id number] Assigned PCP 02/22/21 Prema Hitchcock PA-C [address] [facility] [place] [address] Assigned Surgical Provider 11/04/21 Chidi Puckett MD [address] [facility] [address] [place], [place] [address] Assigned Sleep Provider 02/17/22 10/31/23 Harriet Lindsay Personal Advocate & Liaison (PAL) 06/17/22 Aisha Murdock PA-C [facility] [address] [place] [address] Assigned Neuroscience Provider 06/08/22 11/28/23 Lavern Pope MD [address] [place], [place] [address] Cardiovascular Disease 11/11/22 Lavern Pope MD [address] [place], [place] [address] Assigned Heart and Vascular Provider 11/16/22 Elmer Paul MD [address] [place], [place] [address] Allergy & Immunology 02/17/23 Elmer Paul MD [address] [place], [place] [address] Assigned Allergy Provider 04/26/23 documented as of this encounter
--- OUTSIDE RECORDS SUMMARY | 2023-12-29 23:11 | XMS_ITS | Encounter Summary ---
Author Name Unknown Organization [place] Address Counts include 234 beds at the [facility] [place] [address] Care Team Providers Care Senior Materials Planner Name Role Phone Carey Vuong MD Primary Care Provider [phone] Mehreen Scott MD Unavailable [phone] Carey Vuong MD Unavailable Prema Hitchcock PA-C Unavailable [phone] Chidi Puckett MD Unavai lable Harriet Lindsay Unavailable Unavailable Aisha Murdock PA-C Unavailable [phone] Lavern Pope MD Unavailable [phone] Lavern Pope MD Unavailable [phone] Elmer Paul MD Unavailable [phone] Elmer Paul MD Unavailable [phone] Encounter Details Date Type Department Care Team (Late st Contact Info) Description 07/04/2023 [facility] [address] [facility] [address] [place] [phone] Lavern Pope MD [address] [facility] [address] [place] [address] Social History Tobacco Use Types Packs/Day Years [...] How often do you attend chur or yazidi services? More than 4 times per year 06/17/2022 Do you belong to any clubs o r organizations such as spiritism groups, unions, fraternal or athletic groups, or [...] place to sleep or slept in a chcf (including now)? No 06/17/2022 Education Answer Date Recorded What is the highest level of school you have completed or the highest degree you have received? Some college, no degree 12/12/2019 Sex and Gender Information Value Date Recorded Sex Assigned at Female 12/12/2019 6:30 PM PUNCH BOX TENDER Gender Identity Female 12/12/2019 6:30 PM PUNCH BOX TENDER Sexual Orientation Straight 04/04/2021 12 :18 PM CDT Travel History Travel Start Travel End [place] 12/06/2023 12/12/2023 COVID-19 Exposure Response Date Recorded In the last 10 days, have yo u been in contact with someone who was confirmed or suspected to have Coronavirus/COVID-19? No / Unsure 07/16/2023 7:31 AM CDT documented as of this encounter Miscellaneous Notes * Telephone Encounter - Jose Adame RN - 07/04/2023 2:55 PM CDT Mychart message received. Last lipid profile copied below. RN will send to Dr. Pope for further review. Hi Dr Pope - I'm trying to reduce the amount of meds I'm taking and based on my appointment in October I didn'tget a feeling from you thought anything was wrong with me. With that being said, I'm trying to reduce the amount of medication I'm taking. Is this atorvastin necessary? Do I still need to have this lipid panel done? Based on the notes from last set of tests you stated my labs were good. Please let me know your thoughts. Thanks, Danielle Component Latest Ref Rng 11/22/2022 8:23 AM Cholesterol <200 mg/dL 111 Triglycerides <150 mg/dL 67 HDL Cholesterol >=50 mg/dL 30 (L) LDL Cholesterol Calculated <=100 mg/dL 68 Non HDL Cholesterol <130 mg/dL 81 Legend: (L) Low documented in this encounter Plan of Treatment Upcoming Encounters Date Type Department Care Team (Late st Contact Info) Description 03/19/2024 3:30 PM CDT Office Visit [facility] [place] [address] [facility] [address] [place] [phone] Elmer Paul MD [address] [facility] [address] [place] [address] 04/16/2024 8:30 AM CDT Lab [facility] [address] [facility] [address] [place] [phone] 04/20/2024 8:45 AM CDT Office Visit [facility] [address] [facility] [address] [place] [phone] Lavern Pope MD [address] [facility] [address] [place] [address] documented as of this encounter Visit Diagnoses Not on filedocumented in this encounter Additional Health Concerns Assessment Noted Time PHQ-9 Depression Total Score: 0 07/04/20 23 1:50 PM CDT documented as of this encounter Care Teams Senior Materials Planner Relationship Specialty Start Date End Date Carey Vuong MD [address] [facility] [place] [address] PCP - General 01/15/02 Mehreen Scott MD [address] [place] [phone] planner chief 12/15/19 Carey Vuong MD [address] [facility] [place] [address] Assigned PCP 02/22/21 Prema Hitchcock PA-C [address] [place] [address] Assigned Surgical Provider 11/04/21 Chidi Puckett MD [address] [place], [place] [address] Assigned Sleep Provider 02/17/22 10/31/23 Harriet Lindsay Personal Advocate & Liaison (PAL) 06/17/22 Aisha Murdock PA-C [facility] [address] [place] [id number] Assigned Neuroscience Provider 06/08/22 11/28/23 Lavern Pope MD [address] [facility] [address] [place] [id number] Cardiovascular Disease 11/11/22 Lavern Pope MD [address] [place] [address] Assigned Heart and Vascular Provider 11/16/22 Elmer Paul MD [address] [place], [place] [address] Allergy & Immunology 02/17/23 Elmer Paul MD [address] [place], [place] [address] Assigned Allergy Provider 04/26/23 documented as of this encounter
--- OUTSIDE RECORDS SUMMARY | 2023-12-29 23:11 | XMS_ITS | Encounter Summary ---
Author Name Unknown Organization [facility] Address [address] [place] [address] Care Team Providers Care Emergency Room Orderly Name Role Phone Carey Vuong MD Primary Care Provider [phone] Mehreen Scott MD Unavailable [phone] Carey Vuong MD Unavailable [phone] Prema Hitchcock PA-C Unavailable [phone] Chidi Puckett MD Unavai lable Harriet Lindsay Unavailable Unavailable Aisha Murdock PA-C Unavailable [phone] Lavern Pope MD Unavailable [phone] Lavern Pope MD Unavailable [phone] Elmer Paul MD Unavailable [phone] Elmer Paul MD Unavailable [phone] Encounter Details Date Type Department Care Team (Late st Contact Info) Description 07/28/2023 [facility] [address] [place] [address] [address] [place] [address] Lindsya, Harriet L Social History Tobacco Use Types [...] week 06/17/2022 How often do you attend [facility] or jehovah's witness services? More than 4 times per year [...] points; Administer PHQ-9 if positive 0 07/04/2023 [facility] of Occupat ional Health - Occupational Stress [...] Sex Assigned at Female 12/12/2019 6:30 PM COMPENSATION AND BENEFITS MANAGER Gender Identity Female 12/12/2019 6:30 PM COMPENSATION AND BENEFITS MANAGER Sexual Orientation Straight 04/04/2021 12 :18 PM CDT Travel History Travel Start Travel End [place] 12/06/2023 12/12/2023 COVID-19 Exposure Response Date Recorded In the last 10 days, have yo u been in contact with someone who was confirmed or suspected to have Coronavirus/COVID-19? No / Unsure 07/16/2023 7:31 AM CDT documented as of this encounter Miscellaneous Notes * Telephone Encounter - Jany Eubanks RN - 07/28/2023 9:42 AM CDT This is a duplicate refill request for bupropion. Refills were sent to the same pharmacy on 09/10/22 for a year. * Telephone Encounter - Harriet Lindsay - 07/28/2023 8:25 AM CDT Pending Prescriptions: Disp Refills buPROPion (WELLBUTRIN XL) 300 MG 24 hr ta*90 tab*3 Sig: Take 1 tablet (300 mg) by mouth every morning Pt is out as it is not on her mychart list any longer. Last apt 07/18 documented in this encounter Plan of Treatment Upcoming Encounters Date Type Department Care Team (Late st Contact Info) Description 03/19/2024 3:30 PM CDT Office Visit [facility] [address] [facility] 200 [place] [phone] Elmer Paul MD [address] [facility] 200 [place] [address] 04/16/2024 8:30 AM CDT Lab [facility] Heart [facility] [address] [facility] [address] [place] [phone] 04/20/2024 8:45 AM CDT Office Visit [facility] [address] [facility] [address] [place] [phone] Lavern Pope MD [address] [facility] [address] [place] [address] documented as of this encounter Visit Diagnoses Diagnosis Major depressive disorder, recurrent episode, moderate (H) Major depressive disorder, recurrent episode, moderate documented in this encounter Additional Health Concerns Assessment Noted Time PHQ-9 Depression Total Score: 0 07/04/20 23 1:50 PM CDT documented as of this encounter Care Teams Emergency Room Orderly Relationship Specialty Start Date End Date Carey Vuong MD [address] [facility] [place] [address] PCP - General 01/15/02 Mehreen Scott MD [address] [facility] 100 [place] [address] cone sewer 12/15/19 Carey Vuong MD [address] [facility] [place] [address] Assigned PCP 02/22/21 Prema Hitchcock PA-C [address] [address] Assigned Surgical Provider 11/04/21 Chidi Puckett MD [address] [facility] 106 [place], [place] [address] Assigned Sleep Provider 02/17/22 10/31/23 Harriet Lindsay Personal Advocate & Liaison (PAL) 06/17/22 Aisha Murdock PA-C [facility] [address] [place] [address] Assigned Neuroscience Provider 06/08/22 11/28/23 Lavern Pope MD [address] [place] [id number] Cardiovascular Disease 11/11/22 Lavern Pope MD [address] [facility] [address] [place] [address] Assigned Heart and Vascular Provider 11/16/22 Elmer Paul MD [address] [place] [address] Allergy & Immunology 02/17/23 Elmer Paul MD [address] [place], [place] [address] Assigned Allergy Provider 04/26/23 documented as of this encounter
--- OUTSIDE RECORDS SUMMARY | 2023-12-29 23:11 | XMS_ITS | Encounter Summary ---
Author Name Unknown Organization [facility] Address [address] [place] [address] Care Team Providers Care Associate Programmer Name Role Phone Carey Vuong MD Primary Care Provider [phone] Mehreen Scott MD Unavailable [phone] Carey Vuong MD Unavailable [phone] Prema Hitchcock PA-C Unavailable [phone] Chidi Puckett MD Unavai lable Harriet Lindsay Unavailable Unavailable Aisha Murdock PA-C Unavailable [phone] Lavern Pope MD Unavailable [phone] Lavern Pope MD Unavailable [phone] Elmer Paul MD Unavailable [phone] Elmer Paul MD Unavailable [phone] Reason for Referral * Clinically Administered Medications (Routine) - Closed Specialty Diagnoses / Procedures Referred By Contac t Referred To Contact Pain & Palliative Care Diagnoses UNKNOWN [place] [address] [place] [address] Pain Management [address] [place] [address] [address] [place] [address] Referral ID Status Reason Start Date Expiration Date Visits Re quested Visits Authorized [id number] Closed 07/16/2023 07/15/2024 1 1 Reason for Visit * Reason Comments Pain * Consultation (Routine) - Pending Review Specialty Diagnoses / Procedures Referred By Contac t Referred To Contact Diagnoses Neck pain Spondylosis of cervical region without myelopathy [place] [address] [place] [address] [facility] [address] [address] Referral ID Status Reason Start Date Expiration Date V isits Requested Visits Authorized [id number] Pending Review 07/03/2023 07/02/2024 1 1 Encounter Details Date Type Department Care Team (Latest Contact Info) Description 07/16/2023 7:45 AM CDT Radiology Injection Office Visit [facility] [address] [place] [address] [place] [address] [place] [address] [place] [address] [place] [address] Cervical radiculopathy (Primary Dx) Social History Tobacco [...] do you attend [facility] or yazidism services? More than 4 [...] points; Administer PHQ-9 if positive 0 07/04/2023 [facility] of Occupat ional [facility] - Occupational Stress Questionnaire Answer Date Recorded [...] in a residential (including now)? No 06/17/2022 Education Answer Date Recorded What is the highest level of school you have completed or the highest degree you have received? 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 Procedure Discharge Instructions Today you saw: Dr. Eden Linn Your procedure: Epidural steroid injection Medications used: Lidocaine (anesthetic) Dexamethasone (steroid) Omnipaque (contrast) Saline Be cautious as numbness and/or weakness may occur up to 6-8 hours after the procedure due to effectof the local anesthetic Do not drive for [...] or Tylenol for pain control if needed. Possible side effects of steroids that you may experience include flushing, elevated blood pressure, increased appetite, mild headaches and restlessness. All of these symptoms will get better with time. It may take up to 14 days for the steroid medication to start working although you may feel the effect as early as a few days after the procedure. Follow up with Marlene Benoit APRN, CNP in 3-4 weeks If you experience any of the following, call the pain center line during work hours at [phone] on-call physician after hours at [phone]: -Fever over 100 degree F -Swelling, bleeding, redness, drainage, warmth at the injection site -Progressive weakness or numbness in your legs or arms -Loss of bowel or bladder function -Unusual headache that is not relieved by Tylenol or your regular headache medication -Unusual new onset of pain that is not improving documented in this encounter Progress Notes * Eden Linn MD - 07/16/2023 7:45 AM CDT Images from the original note were not included. [facility] - Procedure Note Date of Visit: 07/16/2023 Procedure performed: C7-T1 interlaminar epidural steroid injection with fluoroscopic guidance Diagnosis: Cervical spondylosis; Cervical radiculitis/radiculopathy Hotel Houseman: Eden Linn MD & Tapan Lópze MD (pain fellow) Anesthesia: none Indications: Danielle Garza is a [...] injection. Previous KELLY done by myself on 01/13/2023 provided good pain relief fora period of 3 months. S/P lumbar L4-5 [...] Allergies Allergen Reactions Penicillins Itching Vitals: BP 113/73 Pulse 61 SpO2 100% Review of Systems: The patient denies recent [...] Post-procedure instructions were provided. Pre-procedure pain score: 6/10 in the neck, 6/10 in the arm Post-procedure pain score: 1/10 in the neck, 1/10 in the arm Assessment/Plan: Danielle Garza is [...] post-procedure evaluation. EDEN LINN MD Pain Management documented in this encounter Nursing Notes * Jocelyne Arango CMA - 07/16/2023 7:45 AM CDT Pre-procedure Intake If YES to any questions or NO to having a limb driver Please complete laminated checklist and leave on the computer keyboard for Provider, verbally inform provider if able. For SCS Trial, RFA's or any sedation procedure: NA If yes, for how long? Are you taking any any blood thinners such as Coumadin, Warfarin, Jantoven, Pradaxa Xarelto, Eliquis, Edoxaban, Enoxaparin, Lovenox, Heparin, Arixtra, Fondaparinux, or Fragmin? OR Antiplatelet medication such as Plavix, Brilinta, or Effient? NO If yes, when did you take your last dose? Do you take aspirin? NO If cervical procedure, have you held aspirin for 6 days? NA Do you have any allergies to contrast dye, iodine, steroid and/or numbing medications? NO Are you currently taking antibiotics or have an active infection? NO Have you had a fever/elevated temperature within the past week? NO Are you currently taking oral steroids? NO Do you have a limb driver? Yes Are you or ? NA Have you received any vaccines in the past 2 weeks? NO Notify provider and RNs if systolic BP >170, diastolic BP >100, P >100 or O2 sats < 90% * Yazmin Mendez RN - 07/16/2023 7:45 AM CDT Discharge Information IV Discontiued Time: NA Amount of Fluid Infused: NA Discharge Criteria = When patient returns to [...] walk or stand and pivot into wheelchair Dressing: Clean/dry or No Dressing Notes: Discharge instructions and AVS given to patient Patient meets criteria for discharge? YES Admitted to PCU? No Responsible adult present to accompany patient home? Yes Signature/Title: Yazmin Mendez RN RN Medical Staff Assistant [facility] documented in this encounter Plan of Treatment Upcoming Encounters Date Type Department Care Team (Late st Contact Info) Description 03/19/2024 3:30 PM CDT Office Visit [address] [place] [phone] Elmer Paul MD [address] [facility] [address] [place] [address] 04/16/2024 8:[address] [facility] [address] [facility] [address] [place] [phone] 04/20/2024 8:45 AM CDT Office Visit [facility] [address] [facility] [address] [place] [phone] Lavern Pope MD [address] [facility] [address] [place] [address] documented as of this encounter Procedures Procedure Name Priority Date/Time Associated Diagnosis Comments PAIN INTERLAMINAR EPIDURAL STRD INJ CERVICAL Routine 07/16/2023 8:19 AM CDT Cervical radiculopathy documented in this encounter Results * PAIN Translaminar Epidural Steroid Injection Cervical (07/16/2023 8:19 AM CDT) Anatomical Region Laterality Modality PAIN/SPINE Radio Fluoroscop y Narrative 07/16/2023 8:32 AM CDT Table formatting from the original result was not included. Images from the original result were not included. [facility] - Procedure Note Date of Visit: 07/16/2023 Procedure performed: C7-T1 interlaminar epidural steroid injection with fluoroscopic guidance Diagnosis: Cervical spondylosis; Cervical radiculitis/radiculopathy Hotel Houseman: Eden Linn MD & Tapan López MD (pain fellow) Anesthesia: none Indications: Danielle Garza is a [...] injection. ??Previous KELLY done by myself on 01/13/2023 provided good pain relief for a [...] Reactions ? ? Penicillins Itching Vitals: BP 113/73 ?? Pulse 61 ?? SpO2 100% Review of Systems: The patient denies recent [...] Post-procedure instructions were provided. Pre-procedure pain score: 6/10 in the neck, 6/10 in the arm Post-procedure pain score: 1/10 in the neck, 1/10 in the arm Assessment/Plan: Danielle Garza is [...] LINN MD Pain Management Eden Linn MD [facility] PAIN MANAGEMENT ORDERABLES documented in this encounter Visit Diagnoses Diagnosis Cervical radiculopathy- Primary Brachial neuritis or radiculitis nos documented in this encounter Administered Medications Inactive Administered Medications - up to 3 most recent administrations Medication Order MAR Action Action Date Dose Rate Site dexAMETHasone PF (DECADRON) injection 10 mg 10 mg, EPIDURAL, ONCE, Administer over 1 Minutes, On Fri07/16/23 at 0830, For 1 dose, Cervical OLIVIA $Given 07/16/2023 8:25 AM CDT 10 mg dexAMETHasone PF (DECADRON) injection 10 mg 10 mg, EPIDURAL, ONCE, Administer over 1 Minutes, On Fri07/16/23 at 0830, For 1 dose, Cervical OLIVIA $Given 07/16/2023 8:25 AM CDT 10 mg iohexol (OMNIPAQUE) 300 mg/mL injection 10 mL 10 mL, EPIDURAL, ONCE, On Fri07/16/23 at 0800, For 1 dose $Given by Other 07/16/2023 8:20 AM CDT 1 mL documented in this encounter Additional Health Concerns Assessment Noted Time PHQ-9 Depression Total Score: 0 07/04/20 1:50 PM CDT documented as of this encounter Care Teams Associate Programmer Relationship Specialty Start Date End Date Carey Vuong MD [address] [facility] [place] [address] PCP - General 01/15/02 Mehreen Scott MD [address] [place] [phone] working manager 12/15/19 Carey Vuong MD [address] [facility] [place] [address] Assigned PCP 02/22/21 Prema Hitchcock PA-C [address] [place] [address] [address] Assigned Surgical Provider 11/04/21 Chidi Puckett MD [address] [facility] [address] [place], [place] [address] Assigned Sleep Provider 02/17/22 10/31/23 Harriet Lindsay Personal Advocate & Liaison (PAL) 06/17/22 Aisha Murdock PA-C [facility] [address] [place] [address] [address] Assigned Neuroscience Provider 06/08/22 11/28/23 Lavern Pope MD [address] [place] [address] Cardiovascular Disease 11/11/22 Lavern Pope MD [address] [facility] [address] [place] [address] Assigned Heart and Vascular Provider 11/16/22 Elmer Paul MD [address] [place] [id number] Allergy & Immunology 02/17/23 Elmer Paul MD [address] [place], [place] [address] Assigned Allergy Provider 04/26/23 documented as of this encounter
--- OUTSIDE RECORDS SUMMARY | 2023-12-29 23:11 | XMS_ITS | Encounter Summary ---
Author Name Unknown Organization [facility] Address [address] [place] [address] Care Team Providers Care Mortgage Broker Name Role Phone Carey Vuong MD Primary Care Provider [phone] Mehreen Scott MD Unavailable [phone] Carey Vuong MD Unavailable [phone] Prema Hitchcock PA-C Unavailable [phone] Chidi Puckett MD Unavai lable Harriet Lindsay Unavailable Unavailable Aisha Murdock PA-C Unavailable [phone] Lavern Pope MD Unavailable [phone] Lavern Pope MD Unavailable [phone] Elmer Paul MD Unavailable [phone] Elmer Paul MD Unavailable [phone] Encounter Details Date Type Department Care Team (Latest Contact Info) Description 07/03/2023 Travel Social History Tobacco Use Types Packs/Day [...] week 06/17/2022 How often do you attend [facility] or orthodox services? More than 4 times per year [...] points; Administer PHQ-9 if positive 0 07/04/2023 [facility] of Occupat ional Health - Occupational [...] Sex Assigned at Female 12/12/2019 6:30 PM DATA ENTRY TECHNICIAN Gender Identity Female 12/12/2019 6:30 PM DATA ENTRY TECHNICIAN Sexual Orientation Straight 04/04/2021 12 :18 PM CDT Travel History Travel Start Travel End [place] 12/06/2023 12/12/2023 COVID-19 Exposure Response Date Recorded In the last 10 days, have yo u been in contact with someone who was confirmed or suspected to have Coronavirus/COVID-19? No / Unsure 07/03/2023 3:32 PM CDT documented as of this encounter Plan of Treatment Upcoming Encounters Date Type Department Care Team (Late st Contact Info) Description 03/19/2024 3:30 PM CDT Office Visit [facility] [address] [facility] [address] [place] [phone] Elmer Paul MD [address] [facility] [address] [place] [address] 04/16/2024 8:30 AM CDT Lab [facility] [address] [facility] [address] [place] [phone] 04/20/2024 8:45 AM CDT Office Visit [facility] [address] [facility] [address] [place] [phone] Lavern Pope MD [address] [facility] [address] [place] [address] documented as of this encounter Visit Diagnoses Not on filedocumented in this encounter Additional Health Concerns Assessment Noted Time PHQ-9 Depression Total Score: 0 07/04/20 23 1:50 PM CDT documented as of this encounter Care Teams Mortgage Broker Relationship Specialty Start Date End Date Carey Vuong MD [address] [facility] [place] [id number] PCP - General 01/15/02 Mehreen Scott MD [address] [facility] [address] [place] [phone] res counselor 12/15/19 Carey Vuong MD [address] [facility] [place] [id number] Assigned PCP 02/22/21 Prema Hitchcock PA-C [address] [facility] [place] [address] Assigned Surgical Provider 11/04/21 Chidi Puckett MD [address] [facility] 106 [place], [place] [address] Assigned Sleep Provider 02/17/22 10/31/23 Harriet Lindsay Personal Advocate & Liaison (PAL) 06/17/22 Aisha Murdock PA-C [facility] [address] [place] [address] Assigned Neuroscience Provider 06/08/22 11/28/23 Lavern Pope MD [address] [place], [place] [address] Cardiovascular Disease 11/11/22 Lavern Pope MD [address] [place], [place] [address] Assigned Heart and Vascular Provider 11/16/22 Elmer Paul MD [address] [place], [place] [address] Allergy & Immunology 02/17/23 Elmer Paul MD [address] [place], [place] [address] Assigned Allergy Provider 04/26/23 documented as of this encounter
--- OUTSIDE RECORDS SUMMARY | 2023-12-29 23:11 | XMS_ITS | Encounter Summary ---
Author Name Unknown Organization [facility] Address [address] [place] [address] Care Team Providers Care Bench Assembler Electrical Name Role Phone Carey Vuong MD Primary Care Provider [phone] Mehreen Scott MD Unavailable [phone] Carey Vuong MD Unavailable [phone] Prema Hitchcock PA-C Unavailable [phone] Chidi Puckett MD Unavai lable Harriet Lindsay Unavailable Unavailable Aisha Murdock PA-C Unavailable [phone] Lavern Pope MD Unavailable [phone] Lavern Pope MD Unavailable [phone] Elmer Paul MD Unavailable [phone] Elmer Paul MD Unavailable [phone] Reason for Visit * Reason Onset Date Comments Refill Request 07/27/2023 Encounter Details Date Type Department Care Team (Late st Contact Info) Description 07/27/2023 MyC Medical Advice [address] [place] [address] Carey Vuong MD [address] [facility] [place] [address] Refill Request Social History Tobacco Use Types [...] often do you attend [facility] or yazidism services? More than 4 times per year 06/17/2022 Do you belong to any clubs o r organizations such as cheondoism groups, unions, fraternal or athletic groups, or [...] points; Administer PHQ-9 if positive 0 07/04/2023 [facility] of Occupat ional Health - Occupational Stress [...] place to sleep or slept in a retirement (including now)? No 06/17/2022 Education Answer Date Recorded What is the highest level of school you have completed or the highest degree you have received? 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 No / Unsure 07/16/2023 7:31 AM CDT documented as of this encounter Miscellaneous Notes * Telephone Encounter - Lindsay, Harriet L - 07/30/2023 9:44 AM CDT Called pharmacy as my RX was declined for refills. Pt has 60 day supply left per pharmacy. Pharmacywill refill that for her. Harriet Lindsay, EMT at 9:59 AM on July 30, 2023 [facility] [place] [facility] [phone] documented in this encounter Plan of Treatment Upcoming Encounters Date Type Department Care Team (Late st Contact Info) Description 03/19/2024 3:30 PM CDT Office Visit [facility] [address] [facility] [address] [place] [phone] Elmer Paul MD [address] [facility] [address] [place] [address] 04/16/2024 8:30 AM CDT Lab [facility] [address] [facility] [address] [place] [phone] 04/20/2024 8:45 AM CDT Office Visit [facility] [address] [facility] [address] [place] [phone] Lavern Pope MD [address] [facility] [address] [place], [place] [address] documented as of this encounter Visit Diagnoses Diagnosis Major depressive disorder, recurrent episode, moderate (H) Major depressive disorder, recurrent episode, moderate documented in this encounter Additional Health Concerns Assessment Noted Time PHQ-9 Depression Total Score: 0 07/04/20 23 1:50 PM CDT documented as of this encounter Care Teams Bench Assembler Electrical Relationship Specialty Start Date End Date Carey Vuong MD [address] [place] [address] [place] [address] PCP - General 01/15/02 Mehreen Scott MD [address] [facility] 100 [place] [phone] steeler 12/15/19 Carey Vuong MD [address] [facility] [place] [address] Assigned PCP 02/22/21 Prema Hitchcock PA-C [address] [place], [place] [address] Assigned Surgical Provider 11/04/21 Chidi Puckett MD [address] [facility] 106 [place], [place] [address] Assigned Sleep Provider 02/17/22 10/31/23 Harriet Lindsay Personal Advocate & Liaison (PAL) 06/17/22 Aisha Murdock PA-C [facility] [address] [place] [address] Assigned Neuroscience Provider 06/08/22 11/28/23 Lavern Pope MD [address] [facility] [address] [facility] [address] [place] [address] Cardiovascular Disease 11/11/22 Lavern Pope MD [address] [facility] [address] [place], [place] [address] Assigned Heart and Vascular Provider 11/16/22 Elmer Paul MD [address] [place] [address] MD Allergy & Immunology 02/17/23 Elmer Paul MD [address] [place] [address] Assigned Allergy Provider 04/26/23 documented as of this encounter
--- OUTSIDE RECORDS SUMMARY | 2023-12-29 23:11 | XMS_ITS | Encounter Summary ---
Author Name Unknown Organization [place] Address [address] [place] [address] Care Team Providers Care Maid Cleaning Cooking Name Role Phone Carey Vuong MD Primary Care Provider [phone] Mehreen Scott MD Unavailable [phone] Carey Vuong MD Unavailable Prema Hitchcock PA-C Unavailable [phone] Chidi Puckett MD Unavai lable Harriet Lindsay Unavailable Unavailable Aisha Murdock PA-C Unavailable [phone] Lavern Pope MD Unavailable [phone] Lavern Pope MD Unavailable [phone] Elmer Paul MD Unavailable [phone] Elmer Paul MD Unavailable [phone] Encounter Details Date Type Department Care Team (Latest Contact Info) Description 07/16/2023 Travel Social History Tobacco Use Types Packs/Day [...] week 06/17/2022 How often do you attend [facility] or restorationism services? More than 4 times per year 06/17/2022 Do you belong to any clubs o r organizations such as judaism groups, unions, fraternal or athletic groups, or [...] points; Administer PHQ-9 if positive 0 07/04/2023 [facility] - [...] place to sleep or slept in a intermediate (including now)? No 06/17/2022 Education Answer Date Recorded What is the highest level of school you have completed or the highest degree you have received? Some college, no degree 12/12/2019 Sex and Gender Information Value Date Recorded Sex Assigned at Female 12/12/2019 6:30 PM [employer] Gender Identity Female 12/12/2019 6:30 PM [employer] Sexual Orientation Straight 04/04/2021 12 :18 PM CDT Travel History Travel Start Travel End [place] 12/06/2023 12/12/2023 COVID-19 Exposure Response Date Recorded In the last 10 days, have yo u been in contact with someone who was confirmed or suspected to have Coronavirus/COVID-19? No / Unsure 07/16/2023 7:31 AM CDT documented as of this encounter Plan of Treatment Upcoming Encounters Date Type Department Care Team (Late st Contact Info) Description 03/19/2024 3:30 PM CDT Office Visit [facility] [address] [facility] [address] [place] [phone] Elmer Paul MD [address] [facility] [address] [place] [address] 04/16/2024 8:30 AM CDT Lab [facility] [address] [facility] [address] [place] [phone] 04/20/2024 8:45 AM CDT Office Visit [facility] [address] [facility] [address] [place] [phone] Lavern Pope MD [address] [facility] [place] [id number] documented as of this encounter Visit Diagnoses Not on filedocumented in this encounter Additional Health Concerns Assessment Noted Time PHQ-9 Depression Total Score: 0 07/04/20 23 1:50 PM CDT documented as of this encounter Care Teams Maid Cleaning Cooking Relationship Specialty Start Date End Date Carey Vuong MD [address] [facility] [place] [id number] PCP - General 01/15/02 Mehreen Scott MD [address] [facility] [address] [place] [phone] room server 12/15/19 Carey Vuong MD [address] [facility] [place] [id number] Assigned PCP 02/22/21 Prema Hitchcock PA-C [address] [place] [address] Assigned Surgical Provider 11/04/21 Chidi Puckett MD [address] [facility] [address] [place], [place] [address] Assigned Sleep Provider 02/17/22 10/31/23 Harriet Lindsay Personal Advocate & Liaison (PAL) 06/17/22 Aisha Murdock PA-C [facility] [address] [place] [address] Assigned Neuroscience Provider 06/08/22 11/28/23 Lavern Pope MD [address] [place], [place] [address] Cardiovascular Disease 11/11/22 Lavern Pope MD [address] [place], [place] [address] Assigned Heart and Vascular Provider 11/16/22 Elmer Paul MD [address] [place], [place] [address] Allergy & Immunology 02/17/23 Elmer Paul MD [address] [place], [place] [address] Assigned Allergy Provider 04/26/23 documented as of this encounter
--- OUTSIDE RECORDS SUMMARY | 2023-12-29 23:11 | XMS_ITS | Encounter Summary ---
Author Name Unknown Organization [place] Address [address] [place] [address] Care Team Providers Care Electronic Drafter Name Role Phone Carey Vuong MD Primary Care Provider [phone] Mehreen Scott MD Unavailable [phone] Carey Vuong MD Unavailable Prema Hitchcock PA-C Unavailable [phone] Chidi Puckett MD Unavai lable Harriet Lindsay Unavailable Unavailable Aisha Murdock PA-C Unavailable [phone] Lavern Pope MD Unavailable [phone] Lavern Pope MD Unavailable [phone] Elmer Paul MD Unavailable [phone] Elmer Paul MD Unavailable [phone] Batool Torres NP Unavailable [phone] Marlene Benoit NP Unavailable Batool Torres NP Unavailable Reason for Visit * Reason Onset Date Comments Medication Question 07/04/2023 Encounter Details Date Type Department Care Team (Late st Contact Info) Description 07/04/2023 MyC Medical Advice [facility] [address] [place] [phone] Carey Vuong MD [address] [facility] [place] [phone] Medication Question Social History Tobacco Use Types Packs/Day Years [...] How often do you attend chur or spiritism services? More than 4 times [...] points; Administer PHQ-9 if positive 0 07/04/2023 [facility] - Occupational Stress Questionnaire Answer Date [...] in a mcc (including now)? No 06/17/2022 Education Answer Date Recorded What is the highest level of school you have completed or the highest degree you have received? Some college, no degree 12/12/2019 Sex and Gender Information Value Date Recorded Sex Assigned at Female 12/12/2019 6:30 PM POT ANNEALER Gender Identity Female 12/12/2019 6:30 PM POT ANNEALER Sexual Orientation Straight 04/04/2021 12 :18 PM CDT Travel History Travel Start Travel End [place] 12/06/2023 12/12/2023 COVID-19 Exposure Response Date Recorded In the last 10 days, have ele ortiz been in contact with someone who was confirmed or suspected to have Coronavirus/COVID-19? No / Unsure 07/03/2023 3:32 PM CDT documented as of this encounter Miscellaneous Notes * Telephone Encounter - Flor Russell CMA - 07/07/2023 2:08 PM CDT Pt scheduled Flor Russell MA 2:09 PM 07/07/2023 * Telephone Encounter - Virginia Hogan RN - 07/04/2023 1:49 PM CDT See patient's [employer] message - Patient states that she has been tapering off of her depression medications - Patient states that her depression and anxiety medications have been causing her to experience brain fog - Patient states that she started tapering her medications on 06/29/2023 - Patient's plan for taperin dose of her medications every other day for 2 weeks, THEN 1 dose every 2 days for 1 week, THEN 1 dose every 3 days for one week, THEN 1 dose every 4 days, etc buPROPion (WELLBUTRIN XL) 300 MG 24 hr tablet 90 tablet 3 09/10/2022 No Sig - Route: Take 1 tablet (300 mg) by mouth every morning - Oral citalopram (CELEXA) 40 MG tablet 90 tablet 3 09/10/2022 No Sig - Route: Take 1 tablet (40 mg) by mouth daily - Oral 07/04/2023 1:50 PM PHQ PHQ-9 Total Score 0 Q9: Thoughts of better off /self-harm past 2 weeks Not at all 08/28/2021 11:05 AM 06/17/2022 9:34 AM 12/31/2022 12:35 PM IRINA-7 SCORE Total Score 0 (minimal anxiety) 3 (minimal anxiety) 3 (minimal anxiety) Total Score [address] Vuong, please review and advise. Virginia Florez RN [facility] [place] documented in this encounter Plan of Treatment Upcoming Encounters Date Type Department Care Team (Late st Contact Info) Description 03/19/2024 3:30 PM CDT Office Visit [facility] [place] [address] [facility] [address] [place] [phone] Elmer Paul MD [address] [facility] [address] [place] [phone] 04/16/2024 8:[address] [facility] [address] [facility] [address] [place] [phone] 04/20/2024 8:45 AM CDT Office Visit [facility] [address] [facility] [address] [place] [phone] Lavern Pope MD [address] [facility] [address] [place] [phone] documented as of this encounter Visit Diagnoses Not on filedocumented in this encounter Additional Health Concerns Assessment Noted Time PHQ-9 Depression Total Score: 0 07/04/20 23 1:50 PM CDT documented as of this encounter Care Teams Electronic Drafter Relationship Specialty Start Date End Date Carey Vuong MD [address] [place] [address] [place] [address] PCP - General 01/15/02 Mehreen Scott MD [address] [place] [phone] gift shop clerk 12/15/19 Carey Vuong MD [address] [place] [address] [place] [address] Assigned PCP 02/22/21 Prema Hitchcock PA-C [address] [facility] [place] [address] Assigned Surgical Provider 11/04/21 Chidi Puckett MD [address] [facility] [address] [place], [place] [phone] Assigned Sleep Provider 02/17/22 10/31/23 Harriet Lindsay Personal Advocate & Liaison (PAL) 06/17/22 Aisha Murdock PA-C [facility] [address] [facility] [place] [address] Assigned Neuroscience Provider 06/08/22 11/28/23 Lavern Pope MD [address] [facility] [address] [place], [place] [phone] Cardiovascular Disease 11/11/22 Lavern Pope MD [address] [facility] [address] [place], [place] [address] Assigned Heart and Vascular Provider 11/16/22 Elmer Paul MD [address] [place], [place] [address] Allergy & Immunology 02/17/23 Elmer Paul MD [address] [place], [place] [address] Assigned Allergy Provider 04/26/23 Batool Torres, MANAGER [employer] [address] [facility] [place] [address] Nurse Practitioner Pulmonary Disease 08/11/23 [place] [address] [place] [address] Nurse Practitioner Nurse Practitioner 10/29/23 Batool Torres NP [address] [facility] [place] [address] Assigned Pulmonology Provider 12/25/23 documented as of this encounter
--- OUTSIDE RECORDS SUMMARY | 2023-12-29 23:11 | XMS_ITS | Encounter Summary ---
Author Name Unknown Organization [facility] Address [address] [place] [address] Care Team Providers Care Court Recorder Name Role Phone Carey Vuong MD Primary Care Provider [phone] Mehreen Scott MD Unavailable [phone] Carey Vuong MD Unavailable Prema Hitchcock PA-C Unavailable [phone] Chidi Puckett MD Unavai lable Harriet Lindsay Unavailable Unavailable Aisha Murdock PA-C Unavailable [phone] Lavern Pope MD Unavailable [phone] Lavern Pope MD Unavailable [phone] Elmer Paul MD Unavailable [phone] Elmer Paul MD Unavailable [phone] Reason for Referral * Diagnostic Imaging XR (Routine) - Pending Review Specialty Diagnoses / Procedures Referred By Contdhara t Referred To Contact Radiology. Diagnoses Cough, unspecified type Procedures XR Chest 2 Views Kayleigh Alexander PA-C [address] [place] [address] Referral ID Status Reason Start Date Expiration Date V isits Requested Visits Authorized [id number] Pending Review 07/31/2023 07/30/2024 1 1 Reason for Visit * Reason Comments Cough Encounter Details Date Type Department Care Team (Late st Contact Info) Description 07/31/2023 1:30 PM CDT Office Visit [facility] [place] [address] [place] [address] Kayleigh Alexander PA-C [address] [facility] [place] [phone] Cough, unspecified type (Primary Dx); Mild intermittent asthma with acute exacerbation; Tobacco use disorder - Quit December 2022; Fatigue, unspecified type Social History Tobacco Use Types [...] How often do you attend chur or jainism services? More than 4 times [...] you are drinking? Patient does not drink 2 Q3: How often do you have si [...] Administer PHQ-9 if positive 0 07/04/2023 [facility] of Occupat ional [facility] - Occupational Stress Questionnaire Answer Date Recorded [...] a nursing home (including now)? No 06/17/2022 Education Answer Date Recorded What is the highest level of school you have completed or the highest degree you have received? Some college, no degree 12/12/2019 Sex and Gender Information Value Date Recorded Sex Assigned at Female 12/12/2019 6:30 PM LENS ASSORTER Gender Identity Female 12/12/2019 6:30 PM LENS ASSORTER Sexual Orientation Straight 04/04/2021 12 :18 PM [...] Sign Reading Time Taken Comments Blood Pressure 111/68 07/31/2023 1:09 PM CDT Pulse 73 07/31/2023 1:09 PM CDT Temperature 37.3 ??C (99.2 ??F) 07/31/2023 1:09 PM CD T Respiratory Rate 20 07/31/2023 1:09 PM CDT Oxygen Saturation 98% 07/31/2023 1:09 PM CDT Inhaled Oxygen Concentration - - Weight 97.5 kg (215 lb) 07/31/2023 1:09 PM CDT Height 167.6 cm (5' 5.98) 07/31/2023 1:09 PM CD T Body Mass Index 34.72 07/31/2023 1:09 PM CDT documented in this encounter Progress Notes * Kayleigh Alexander PA-C - 07/31/2023 1:30 PM CDT Assessment & Plan Cough, unspecified type - XR Chest 2 Views; Future - TSH with free T4 reflex; Future - Comprehensive metabolic panel (BMP + Alb, Alk Phos, ALT, AST, Total. Bili, TP); Future - CBC with platelets and differential; Future - methylPREDNISolone (MEDROL DOSEPAK) 4 MG tablet therapy pack; Follow Package Directions - TSH with free T4 reflex - Comprehensive metabolic panel (BMP + Alb, Alk Phos, ALT, AST, Total. Bili, TP) - CBC with platelets and differential Mild intermittent asthma with acute exacerbation - methylPREDNISolone (MEDROL DOSEPAK) 4 MG tablet therapy pack; Follow Package Directions Tobacco use disorder - Quit December 2022 Fatigue, unspecified type - TSH with free T4 reflex; Future - Comprehensive metabolic panel (BMP + Alb, Alk Phos, ALT, AST, Total. Bili, TP); Future - CBC with platelets and differential; Future - TSH with free T4 reflex - Comprehensive metabolic panel (BMP + Alb, Alk Phos, ALT, AST, Total. Bili, TP) - CBC with platelets and differential BMI: Estimated body mass index is 34.72 kg/m?? as calculated from the following: Height as of this encounter: 1.676 m (5' 5.98). Weight as of this encounter: 97.5 kg (215 lb). BIN [facility] [place] Santos is a 48 year old, presenting for the following health issues: Cough 07/31/2023 1:06 PM Additional Questions Roomed by Erin Perales Accompanied by N/a 07/31/2023 1:06 PM Patient Reported Additional Medications Patient reports taking the following new medications No Cough History of Present Illness Reason for visit: Cough Symptom onset: 3-4 weeks ago She eats 2-3 servings of fruits and vegetables daily.She consumes 1 sweetened beverage(s) daily.Sheexercises with enough effort to increase her heart rate 30 to 60 minutes per day. She exercises with enough effort to increase her heart rate 3 or less days per week. She is missing 1 dose(s) of medications per week. Acute Illness Acute illness concerns: Cough Onset/Duration: 1 month Symptoms: Fever: No Chills/Sweats: YES- chills Headache (location?): YES- chronic Sinus Pressure: No Conjunctivitis: No Ear Pain: no Rhinorrhea: No Congestion: No Sore Throat: No Cough: YES-productive of yellow sputum Wheeze: YES Decreased Appetite: YES Nausea: YES Vomiting: No Diarrhea: YES Dysuria/Freq.: No Dysuria or Hematuria: No Fatigue/Achiness: YES Sick/Strep Exposure: No Therapies tried and outcome: inhalers Review of Systems Respiratory: Positive for cough. Woke up one morning and has sharp stabbing, coughing pain. She took several covid tests in the next2 weeks and they were all negative. Last week was the third week of symptoms and she has not taken anymore COVID tests. She says that it is not like her asthma coughs. Her asthma coughs are dry and this cough comes downfrom her gut and she feels like she is coughing stuff up, but she is not seeing what it is. She says that it is brown - greenish gunk. She is not having fevers, but she has had times of feeling chills, she also has felt some overall body fatigue. She is only having shortness or breath with talking and when she attempts to workout. She has a lot of other medical things going on right now. She has had dizziness and nausea, but shehas been working on that with her GI doctor on that and they think her reflux is flared up. Of note, she has been using the albuterol inhaler as needed for her asthma, chest tightness, which has seemed to help. Constitutional, HEENT, cardiovascular, pulmonary, gi and gu systems are negative, except as otherwise noted. Objective BP 111/68 (BP Location: Right arm, Patient Position: Sitting, Cuff Size: Adult Regular) Pulse 73 Temp 99.2 ??F (37.3 ??C) (Tympanic) Resp 20 Ht 1.676 m (5' 5.98) Wt 97.5 kg (215 lb) [id number]% BMI 34.72 kg/m?? Body mass index is 34.72 kg/m??. Physical Exam GENERAL: healthy, alert and no distress NECK: no adenopathy, no asymmetry, masses, or scars and thyroid normal to palpation RESP: lungs clear to auscultation - no rales, rhonchi or wheezes CV: regular rate and rhythm, normal S1 S2, no S3 or S4, no murmur, click or rub, no peripheral edema and peripheral pulses strong MS: no gross musculoskeletal defects noted, no edema CXR - Reviewed and interpreted by me Normal- no infiltrates, effusions, pneumothoraces, cardiomegaly or masses Kayleigh Alexander PA-C documented in this encounter Miscellaneous Notes * Result Encounter Note - Kayleigh Alexander PA-C - 07/31/2023 1:30 PM CDT Camila Santos , The results from your recent lab work are within normal limits and stable to labs in the past. Please followup if symptoms have continued. Thank you for choosing [facility] for your health care needs, Kayleigh Alexander PA-C documented in this encounter Plan of Treatment Upcoming Encounters Date Type Department Care Team (Late st Contact Info) Description 03/19/2024 3:30 PM CDT Office Visit [facility] Specialty [facility] [address] [place] [phone] Elmer Paul MD [address] [facility] [address] [place] [address] 04/16/2024 8:30 AM CDT Lab [facility] Heart [facility] [address] [facility] [address] [place] [phone] 04/20/2024 8:45 AM CDT Office Visit [facility] [address] [place] [phone] Lavern [place] MD [address] [facility] [place] [address] documented as of this encounter Procedures Procedure Name Priority Date/Time Associated Diagnosis Comments CBC WITH PLATELETS AND DIFFERENTIAL Routine 07/31/2023 2:26 PM CDT Cough, unspecified type Fatigue, unspecified type CBC WITH PLATELETS & DIFFERENTIAL Routine 07/31/2023 2:26 PM CDT Cough, unspecified type Fatigue, unspecified type TSH WITH FREE T4 REFLEX Routine 07/31/2023 2:26 PM CDT Cough, unspecified type Fatigue, unspecified type COMPREHENSIVE METABOLIC PANEL Routine 07/31/2023 2:26 PM CDT Cough, unspecified type Fatigue, unspecified type documented in this encounter Results * CBC with platelets and differential (07/31/2023 2:26 PM CDT) WBC Count 10.0 4.0 - 11.0 10e3/uL 07/31/2023 4:42 PM CDT [facility] RBC Count 4.17 3.80 - 5.20 10e6/uL 07/31/2023 4:42 PM CDT [facility] Hemoglobin 13.5 11.7 - 15.7 g/dL 07/31/2023 4:42 PM CDT [facility] Hematocrit 40.4 35.0 - 47.0 % 07/31/2023 4:42 PM CDT [facility] MCV 97 78 - 100 fL 07/31/2023 4:42 PM CDT [facility] MCH 32.4 26.5 - 33.0 pg 07/31/2023 4:42 PM CDT [facility] MCHC 33.4 31.5 - 36.5 g/dL 07/31/2023 4:42 PM CDT [facility] RDW 13.0 10.0 - 15.0 % 07/31/2023 4:42 PM CDT [facility] Platelet Count 263 150 - 450 10e3/uL 07/31/2023 4:42 PM CDT [facility] % Neutrophils 60 % 07/31/2023 4:42 PM CDT [facility] % Lymphocytes 28 % 07/31/2023 4:42 PM CDT [facility] % Monocytes 9 % 07/31/2023 4:42 PM CDT [facility] % Eosinophils 3 % 07/31/2023 4:42 PM CDT [facility] % Basophils 1 % 07/31/2023 4:42 PM CDT [facility] % Immature Granulocytes 0 % 07/31/2023 4:42 PM CDT [facility] Absolute Neutrophils 6.0 1.6 - 8.3 10e3/uL 07/31/2023 4:42 PM CDT [facility] Absolute Lymphocytes 2.8 0.8 - 5.3 10e3/uL 07/31/2023 4:42 PM CDT [facility] Absolute Monocytes 0.9 0.0 - 1.3 10e3/uL 07/31/2023 4:42 PM CDT [facility] Absolute Eosinophils 0.3 0.0 - 0.7 10e3/uL 07/31/2023 4:42 PM CDT [facility] Absolute Basophils 0.1 0.0 - 0.2 10e3/uL 07/31/2023 4:42 PM CDT [facility] Absolute Immature Granulocytes 0.0 <=0.4 10e3/uL 07/31/2023 4:42 PM CDT [facility] Blood STRUCTURE OF RIGHT UPPER LIMB / Unknown Venipuncture / Unknown 07/31/2023 2:26 PM CDT 07/31/2023 4:36 PM CDT Kayleigh [place] PA-C LAB - BLOOD ORDER KARINA [facility] [place] [facility] [address] [place] [address], [facility] [phone] * (ABNORMAL) Comprehensive metabolic panel (BMP + Alb, Alk Phos, ALT, AST, Total. Bili, TP) (07/31/2023 2:26 PM CDT) Sodium 138 136 - 145 mmol/L 08/01/2023 2:21 PM CDT [facility] Potassium 4.0 3.4 - 5.3 mmol/L 08/01/2023 2:21 PM CDT [facility] Chloride 110(H) 98 - 107 mmol/L 08/01/2023 2:21 PM CDT [facility] Carbon Dioxide (CO2) 17(L) 22 - 29 mmol/L 08/01/2023 2:21 PM CDT [facility] Anion Gap 11 7 - 15 mmol/L 08/01/2023 2:21 PM CDT [facility] Urea Nitrogen 11.0 6.0 - 20.0 mg/dL 08/01/2023 2:21 PM CDT [facility] Creatinine 0.88 0.51 - 0.95 mg/dL 08/01/2023 2:21 PM CDT [facility] Calcium 8.6 8.6 - 10.0 mg/dL 08/01/2023 2:21 PM CDT [facility] Glucose 70 70 - 99 mg/dL 08/01/2023 2:21 PM CDT [facility] Alkaline Phosphatase 51 35 - 104 U/L 08/01/2023 2:21 PM CDT [facility] AST 22 0 - 45 U/L 08/01/2023 2:21 PM CDT [facility] Comment:Reference intervals for this test were updated on 05/12/2023 to more accurately reflect our healthy population. There may be differences in the flagging of prior results with similar values performed with this method. Interpretation of those prior results can be made in the context of the updated reference intervals. ALT 33 0 - 50 U/L 08/01/2023 2:21 PM CDT [facility] Comment:Reference intervals for this test were updated on 05/12/2023 to more accurately reflect our healthy population. There may be differences in the flagging of prior results with similar values performed with this method. Interpretation of those prior results can be made in the context of the updated reference intervals. Protein Total 6.4 6.4 - 8.3 g/dL 08/01/2023 2:21 PM CDT [facility] Albumin 4.2 3.5 - 5.2 g/dL 08/01/2023 2:21 PM CDT [facility] Bilirubin Total 0.2 <=1.2 mg/dL 08/01/2023 2:21 PM CDT [facility] GFR Estimate 80 >60 mL/min/1. 73m2 08/01/2023 2:21 PM CDT [facility] Blood STRUCTURE OF RIGHT UPPER LIMB / Unknown Venipuncture / Unknown 07/31/2023 2:26 PM CDT 07/31/2023 4:36 PM CDT Kayleigh Alexander PA-C LAB - BLOOD ORDER KARINA [facility] [place] [facility] [address] [place] [address], [facility] [phone] * TSH with free T4 reflex (07/31/2023 2:26 PM CDT) TSH 3.14 0.30 - 4.20 uIU/mL 08/01/2023 2:21 PM CDT [facility] Blood STRUCTURE OF RIGHT UPPER LIMB / Unknown Venipuncture / Unknown 07/31/2023 2:26 PM CDT 07/31/2023 4:36 PM CDT Kayleigh Alexander PA-C LAB - BLOOD ORDER KARINA [facility] [place] [facility] [address] [facility] [facility] [address], [address] [place] [address], [facility] [phone] * XR Chest 2 Views (07/31/2023 2:08 [...] normal in size. Lungs are clear. BARRETT PERZE MD Kayleigh Alexander PA-C IMG DIAGNOSTIC IM AGING ORDERABLES documented in this encounter Visit Diagnoses Diagnosis Cough, unspecified type- Primary Mild intermittent asthma with acute exacerbation Unspecified asthma, with exacerbation Tobacco use disorder - Quit December 2022 Tobacco use disorder Fatigue, unspecified type Cough, unspecified type documented in this encounter Additional Health Concerns Assessment Noted Time PHQ-9 Depression Total Score: 0 07/04/20 23 1:50 PM CDT documented as of this encounter Care Teams Court Recorder Relationship Specialty Start Date End Date Carey Vuong MD [address] [facility] [place] [address] PCP - General 01/15/02 Mehreen [place] MD [address] [place] [phone] termite exterminator 12/15/19 Carey Vuong MD [address] [address] [address] Assigned PCP 02/22/21 Prema Hitchcock PA-C [address] [place], [place] [address] Assigned Surgical Provider 11/04/21 Chidi Puckett MD [address] [facility] [address] [place], [place] [address] Assigned Sleep Provider 02/17/22 10/31/23 Harriet [place] Personal Advocate & Liaison (PAL) 06/17/22 Aisha Murdock PA-C [facility] [address] [place] [address] Assigned Neuroscience Provider 06/08/22 11/28/23 Lavern [place] MD [address] [place], [place] [phone] Cardiovascular Disease 11/11/22 Lavern [place] MD [address] [place], [place] [id number] Assigned Heart and Vascular Provider 11/16/22 Elmer Paul MD [address] [place] [address] Allergy & Immunology 02/17/23 Elmer Paul MD [address] [place], [address] [place] [address] Assigned Allergy Provider 04/26/23 documented as of this encounter
--- OUTSIDE RECORDS SUMMARY | 2023-12-29 23:11 | XMS_ITS | Encounter Summary ---
Author Name Unknown Organization [facility] Address [address] [place] [address] Care Team Providers Care Supervisor Silvering Department Name Role Phone Carey Vuong MD Primary Care Provider [phone] Mehreen [place] MD Unavailable [phone] Carey Vuong MD Unavailable Prema Hitchcock PA-C Unavailable [phone] Chidi Puckett MD Unavai lable Harriet [place] Unavailable Unavailable Aisha Murdock PA-C Unavailable [phone] Lavern [place] MD Unavailable [phone] aLvern [place] MD Unavailable [phone] Elmer Paul MD Unavailable [phone] Elmer Paul MD Unavailable [phone] Encounter Details Date Type Department Care Team (Latest Contact Info) Description 06/26/2023 Travel Social History Tobacco Use Types Packs/Day [...] do you attend up health system or pentecostal services? More than 4 times per year [...] hard 06/17/2022 PHQ-2 Answer Date Recorded PHQ-2 Score 1 11/19/2022 [facility] Answer Date [...] the money to buy more. Never true 07/18/20 22 Within the past 12 months, t [...] place to sleep or slept in a detention (including now)? No 06/17/2022 Education Answer Date Recorded What is the highest level of school you have completed or the highest degree you have received? Some college, no degree 12/12/2019 Sex and Gender Information Value Date Recorded Sex Assigned at Female 12/12/2019 6:30 PM ASSISTANT SPA MANAGER Gender Identity Female 12/12/2019 6:30 PM ASSISTANT SPA MANAGER Sexual Orientation Straight 04/04/2021 12 :18 PM CDT Travel History Travel Start Travel End [place] 12/06/2023 12/12/2023 COVID-19 Exposure Response Date Recorded In the last 10 days, have yo u been in contact with someone who was confirmed or suspected to have Coronavirus/COVID-19? No / Unsure 06/26/2023 8:56 AM CDT documented as of this encounter Plan of Treatment Upcoming Encounters Date Type Department Care Team (Late st Contact Info) Description 03/19/2024 3:30 PM CDT Office Visit [facility] [address] [place] [phone] Elmer Paul MD [address] [place], [address] [place] [address] 04/16/2024 8:30 AM CDT Lab [facility] [address] [place] [phone] 04/20/2024 8:45 AM CDT Office Visit [facility] [place] [address] [facility] [address] [place] [phone] Lavern [place] MD [address] [facility] [address] [place] [id number] documented as of this encounter Visit Diagnoses Not on filedocumented in this encounter Additional Health Concerns Assessment Noted Time PHQ-9 Depression Total Score: 0 07/04/20 23 1:50 PM CDT documented as of this encounter Care Teams Supervisor Silvering Department Relationship Specialty Start Date End Date Carey Vuong MD [address] [facility] [place] [address] PCP - General 01/15/02 Mehreen [place] MD [address] [place] [phone] behavioral health tech 12/15/19 Carey Vuong MD [address] [facility] [place] [address] Assigned PCP 02/22/21 Prema Hitchcock PA-C [address] [facility] [address] [place] [address] Assigned Surgical Provider 11/04/21 Chidi Puckett MD [address] [place], [place] [address] Assigned Sleep Provider 02/17/22 10/31/23 Harriet [place] Personal Advocate & Liaison (PAL) 06/17/22 Aisha Murdock PA-C [facility] [address] [place] [address] Assigned Neuroscience Provider 06/08/22 11/28/23 Lavern [place] MD [address] [facility] [address] [place], [place] [address] Cardiovascular Disease 11/11/22 Lavern [place] MD [address] [facility] [address] [place], [place] [address] Assigned Heart and Vascular Provider 11/16/22 Elmer [place] MD [address] [place] [address] Allergy & Immunology 02/17/23 Elmer Paul MD [address] [place] [place] [address] Assigned Allergy Provider 04/26/23 documented as of this encounter
--- OUTSIDE RECORDS SUMMARY | 2023-12-29 23:11 | XMS_ITS | Encounter Summary ---
Author Name Unknown Organization [facility] Address [address] [place] [address] Care Team Providers Care Feed Mill Supervisor Name Role Phone Carey Vuong MD Primary Care Provider [phone] Mehreen Scott MD Unavailable [phone] Carey Vuong MD Unavailable [phone] Prema Hitchcock PA-C Unavailable [phone] Chidi Puckett MD Unavai lable Harriet Lindsay Unavailable Unavailable Aisha Murdock PA-C Unavailable [phone] Lavern Pope MD Unavailable [phone] Lavern Pope MD Unavailable [phone] Elmer Paul MD Unavailable [phone] Elmer Paul MD Unavailable [phone] Reason for Visit * Reason Comments Recheck Medication Pt stopped depressio n medication [id number] Encounter Details Date Type Department Care Team (Late st Contact Info) Description 07/18/2023 11:30 AM CDT Virtual Visit [address] [place] [address] Kayleigh Alexander PA-C [address] [place] [address] Major depressive disorder, recurrent episode, moderate (H) (Primary Dx) Social History Tobacco Use Types [...] you attend [facility] or jew services? More than 4 [...] points; Administer PHQ-9 if positive 0 07/04/2023 [facility] - [...] Sex Assigned at Female 12/12/2019 6:30 PM MACHINE CELL TUBER Gender Identity Female 12/12/2019 6:30 PM MACHINE CELL TUBER Sexual Orientation Straight 04/04/2021 12 :18 PM CDT Travel History Travel Start Travel End [place] 12/06/2023 12/12/2023 COVID-19 Exposure Response Date Recorded In the last 10 days, have yo u been in contact with someone who was confirmed or suspected to have Coronavirus/COVID-19? No / Unsure 07/31/2023 12:59 PM CDT documented as of this encounter Progress Notes * Kayleigh Alexander PA-C - 07/18/2023 11:30 AM CDT Danielle is a 48 year old who is being evaluated via a billable video visit. How would you like to obtain your AVS? MyChart If the video visit is dropped, the invitation should be resent by: Text to cell phone: [phone] Will anyone else be joining your video visit? No Assessment & Plan Major depressive disorder, recurrent episode, moderate (H) - citalopram (CELEXA) 10 MG tablet; Please take two tabs (20 mg) every other day for two weeks, then take one tablet (10 mg) every other day for two weeks. We have dropped the dose of the Celexa and will have the patient continue to take this every other day as instructed on the signature above. Patient was advised to followup in about 4 weeks to monitor how she is doing in coming off of the Celexa completely. She should be seen sooner if needed. Patient does contract for safety today and denies having any thoughts of wanting to hurt herself orothers. BMI: Estimated body mass index is 34.72 kg/m?? as calculated from the following: Height as of 07/31/23: 1.676 m (5' 5.98). Weight as of 07/31/23: 97.5 kg (215 lb). Kayleigh Alexander PA-C [facility] Tanya Santos is a 48 year old, presenting for the following health issues: Recheck Medication (Pt stopped depression medication [id number]) History of Present Illness Mental Health Follow-up: Patient presents to follow-up on Anxiety. Patient's anxiety since last visit has been: Good The patient is having other symptoms associated with anxiety. Any significant life events: relationship concerns, job concerns, financial concerns, grief or lossand health concerns Patient is not feeling anxious or having panic attacks. Patient has no concerns about alcohol or drug use. She eats 2-3 servings of fruits and vegetables daily.She consumes 1 sweetened beverage(s) daily.Sheexercises with enough effort to increase her heart rate 30 to 60 minutes per day. She exercises with enough effort to increase her heart rate 4 days per week. She is missing 1 dose(s) of medications per week. She is not taking prescribed medications regularly due to remembering to take. 06/17/2022 9:34 AM 11/19/2022 1:36 PM 07/04/2023 1:50 PM PHQ PHQ-9 Total Score 5 6 0 Q9: Thoughts of better off /self-harm past 2 weeks Not at all Not at all Not at all 06/17/2022 9:34 AM 12/31/2022 12:35 PM 07/15/2023 10:42 AM IRINA-7 SCORE Total Score 3 (minimal anxiety) 3 (minimal anxiety) 0 (minimal anxiety) Total Score 3 3 0 Wanting to get off of her depression medication. She has started to wean herself off of Celexa. She started to reduce her medication on June 29. She was taking one dose every other day for two weeks. That brings her to July 11. This week she took a pill on Friday, Friday, and she will take one tonight. She is not having any side effects from coming off of the medication. She feels like her mental health is doing fine as well. She does feel like her brain is less foggy. Review of Systems Constitutional, HEENT, cardiovascular, pulmonary, [...] insight intact, normal speech and appearance well-groomed. Kayleigh Alexander PA-C Video-Visit Details Type of service: Video Visit Originating Location (pt. Location): Home Distant Location (provider location): On-site Platform used for Video Visit: Bettye documented in this encounter Plan of Treatment Upcoming Encounters Date Type Department Care Team (Late st Contact Info) Description 03/19/2024 3:30 PM CDT Office Visit [facility] [place] [address] [facility] [address] [place] [phone] Elmer Paul MD [address] [facility] [address] [place] [address] 04/16/2024 8:30 AM CDT Lab [facility] [address] [facility] [address] [place] [phone] 04/20/2024 8:45 AM CDT Office Visit [facility] [address] [facility] [address] [place] [phone] Lavern Pope MD [address] [facility] [address] [place] [address] documented as of this encounter Visit Diagnoses Diagnosis Major depressive disorder, recurrent episode, moderate (H)- Primary Major depressive disorder, recurrent episode, moderate documented in this encounter Additional Health Concerns Assessment Noted Time PHQ-9 Depression Total Score: 0 07/04/20 23 1:50 PM CDT documented as of this encounter Care Teams Feed Mill Supervisor Relationship Specialty Start Date End Date Carey Vuong MD [address] [place] [address] [place] [address] PCP - General 01/15/02 Mehreen Scott MD [address] [place] [phone] director mba 12/15/19 Carey Vuong MD [address] [place] [address] [place] [address] Assigned PCP 02/22/21 Prema Hitchcock PA-C [address] [place] [address] Assigned Surgical Provider 11/04/21 Chidi Puckett MD [address] [place] [address] Assigned Sleep Provider 02/17/22 10/31/23 Harriet Lindsay Personal Advocate & Liaison (PAL) 06/17/22 Aisha Murdock PA-C [facility] [address] [place] [id number] Assigned Neuroscience Provider 06/08/22 11/28/23 Lavern Pope MD [address] [place] [id number] Cardiovascular Disease 11/11/22 Lavern Pope MD [address] [facility] [address] [address] [place], [place] [address] Assigned Heart and Vascular Provider 11/16/22 Elmer Paul MD [address] [place], [place] [address] Allergy & Immunology 02/17/23 Elmer Paul MD [address] [place], [place] [address] Assigned Allergy Provider 04/26/23 documented as of this encounter
--- OUTSIDE RECORDS SUMMARY | 2023-12-29 23:11 | XMS_ITS | Encounter Summary ---
Author Name Unknown Organization [facility] Address [address] [place] [address] Care Team Providers Care Senior Sales Manager Name Role Phone Carey Vuong MD Primary Care Provider [phone] Mehreen Scott MD Unavailable [phone] Carey Vuong MD Unavailable [phone] Prema Hitchcock PA-C Unavailable [phone] Chidi Puckett MD Unavai lable Harriet Lindsay Unavailable Unavailable Aisha Murdock PA-C Unavailable [phone] Lavern Pope MD Unavailable [phone] Lavern Pope MD Unavailable [phone] Elmer Paul MD Unavailable [phone] Elmer Paul MD Unavailable [phone] Reason for Referral * Consultation (Routine) - Pending Review Specialty Diagnoses / Procedures Referred By Contdhara t Referred To Contact Diagnoses Neck pain Spondylosis of cervical region without myelopathy or radiculopathy Marlene Benoit, COMMISSIONER OF CONCILIATION [address] [place] [address] [facility] [id number] [place] [address] [address] [place] [address] Referral ID Status Reason Start Date Expiration Date V isits Requested Visits Authorized [id number] Pending Review 07/03/2023 07/02/2024 1 1 Scheduling Instructions Interventional Evaluation: Interventional Injection Only - Type of Injection: C7-T1 [place] OLIVIA Radiology? Yes With Dr. Terry Reason for Visit * Reason Comments Pain Encounter Details Date Type Department Care Team (Late st Contact Info) Description 07/03/2023 4:00 PM CDT Office Visit [facility] [address] [place], [place] [phone] Marlene Benoit, ZENOBIA [address] [place] [address] [address] [place] [id number] Migraine without aura and without status migrainosus, not intractable (Primary Dx); Chronic bilateral low back pain without sciatica; Neck pain; Spondylosis of cervical region without [...] often do you attend chur ch or muslim services? 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 Consider Med-X program. Scheduling/Clinic telephone number for ALL locations: [phone] After Hours On-Call Service for Emergencies: [phone] Call with any questions about your care and for scheduling assistance. Calls are returned Friday through Friday between 8 AM and 4:00 PM. We usually get back to you within 2-3 business days depending on the issue/request. I am not in the clinic on Fridays. If we are prescribing your medications: For medication refills, call the clinic or send a MediaBrixt message 7 days in advance. Please includethe name of the requested medication and your preferred pharmacy. Please allow 3-4 days to be processed. Per [place] State Law, all controlled substance prescriptions must [...] may lead to dismissal from the clinic. documented in this encounter Progress Notes * Marlene Benoit NP - 07/03/2023 4:00 PM CDT Images from the original note were not included. [facility] Date of Visit: 07/03/2023 Last visit: 05/26/2023 Original Consult: 01/06/2023 Danielle WoodyShahla Garza is a 47 year old female with PMH significant for [...] neurology consult; was scheduled at [facility] - patient cancelled. Low back pain [...] better with sitting. Neck pain/Headaches : Cancelled [place] neurology consult, I am sick of going to the doctor. Episodes where she had profound tremors and shaking, did not get evaluated, laid down flat and symptoms resolved in 10 minutes. Pain improved with topiramate and cervical OLIVIA in January 2023. Recommendations from last visit: Lumbar OLIVIA ordered, repeat L4-5 [place] OLIVIA. Continue robaxin as needed. - methocarbamol (ROBAXIN) 500 MG tablet Dispense: 60 tablet; Refill: 3 - PAIN INJECTION EVAL/TREAT/FOLLOW UP - Increase Topiramate to 50 mg BID using existing supply of 25 mg capsules Since last seen, Danielle reports: - Occasional pain in her lower back that radiates to the top of her anteroior thighs. This improveswith sitting. Much less painful after OLIVIA. Went back to working out, playing softball. Wonders about fci strategies for management. - Neck is starting to bother her again and she is noticing headaches returning. Would like to repeat cervical OLIVIA. - New cough since doing hot yoga 5 days ago that feels like she is coughing up shards of glass. Hotyoga class also flared her neck pain. - Robaxin helpful, if she takes it before bed, can sleep and wake up without spasms or pain. - Taking Topiramate 50 mg twice a day. Most of the time it works. - Lots of stress with caring for aging in-laws as they transition from their home into supportive care environment. Daughter was crowned [employer] [place] and the family will be traveling to [place] in late August to cheer her on at the [facility] Pageant. Pain description: Location: neck, lower back, radiation into left anterolateral thigh. Quality: aching Duration: intermittent Severity/Intensity (0 = No pain to 10 = Worst pain imaginable) Now: 02/07, was 03/10 last visit Aggravating factors include: strenuous activities Relieving factors include: lying down, medication, relaxation Current pain medications: Ibuprofen prn Excedrin Migraine prn Topamax 50 mg BID Robaxin 500-1000 mg prn Review of [place] Prescription Monitoring Program (TESTER ELECTRONIC SCALE): No concern for abuse or misuse of controlled medications based on this report. Last viewed on 05/26/2023 PAIN MANAGEMENT TREATMENT HISTORY 1. MEDICATIONS: Opiates: not used NSAIDS: inuprofen, naproxen - somewhat helpful Muscle Relaxants: Robaxin -helpful Anti-migraine mediations: Imitrex tablets - somewhat helpful, Excedrin Migrane- somewhat helpful, Topamax - very helpful Anti-depressants: Citalopram & Bupropion helpful for mood Sleep aids: None Anxiolytics: None Neuropathics: Topirimate - helpful for migraines and pain Topicals: not tried Adjuvant pain medications: Acetaminophen 2. PHYSICAL THERAPY: Completed at [facility] Summer 2021, was combination of PT and Chiropractic - helped, still does HEP 3. PAIN PSYCHOLOGY: Not tried 4. SURGERY: Not for back or neck. 15 knee surgeries. 5. INJECTIONS: 05/30/23: Lumbar L4-[address] [...] endplate osteophytic ridging and mildbilateral uncovertebral spurring. [id number] right neural foraminal stenosis. The left neuralforamen [...] the right at C4-C5 and C5-C6. Social History: Social History Tobacco Use Smoking status: Former Packs/day: 0.00 Years: 10.00 Pack years: 0.00 Types: Cigarettes, Cigars Quit date: 12/01/2022 Years since quittin.5 Smokeless tobacco: Never Tobacco comments: smokes a single cigar nightly Vaping Use Vaping Use: Never used Substance Use Topics Alcohol use: Not Currently Alcohol/week: 6.0 standard drinks of alcohol Types: 6 Glasses of wine per week Drug use: No Social History Social History Narrative . 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 Enjoys working out. Medications and Allergies reviewed. OBJECTIVE Vitals: 07/03/23 1550 BP: 104/69 BP Location: Right arm Cuff Size: Adult Large Pulse: 69 SpO2: 97% Constitutional: Well developed, well nourished, appears stated [...] Normal bulk and tone. Unremarkable spinal curvature. ASSESSMENT AND PLAN: 1. Chronic bilateral low back pain without sciatica Improved after OLIVIA. Discussed MedX for improved stability, she will think about it and let me know if she would like me to place an order 2. Neck pain 3. Spondylosis of cervical region without myelopathy or radiculopathy Repeat OLIVIA of cervical spine. If better can send me a mychart update. - PAIN INJECTION EVAL/TREAT/FOLLOW UP 4. Migraine without aura and without status migrainosus, not intractable Refilled Topamax, in the past headaches improved with OLIVIA of the neck. - topiramate (TOPAMAX) 50 MG tablet; Take 1 tablet (50 mg) by mouth 2 times daily Dispense: 180 tablet; Refill: 1 Marlene Benoit, CONTRACT ADMINISTRATION SPECIALIST-BC, PMGT-BC, AP-PMN [facility] documented in this encounter Plan of Treatment Upcoming Encounters Date Type Department Care Team (Late st Contact Info) Description 03/19/2024 3:30 PM CDT Office Visit [facility] [place] [address] [facility] [address] [place] [phone] Elmer Paul MD [address] [facility] [address] [place], [place] [address] 04/16/2024 8:30 AM CDT Lab [facility] [address] [facility] [address] [place] [phone] 04/20/2024 8:45 AM CDT Office Visit [facility] [address] [facility] [address] [place] [phone] Lavern Pope MD [address] [facility] [address] [place] [id number] Scheduled Referrals Name Type Priority Associated Diagnoses Orde r Schedule PAIN INJECTION EVAL/TREAT/FOLLOW UP Referral Routine Neck pain Spondylosis of cervical region without myelopathy or radiculopathy Ordered: 07/03/2023 documented as of this encounter Visit Diagnoses Diagnosis Migraine without aura and without status migrainosus, not intractable- Primary Migraine without aura, without mention of intractable migraine without mention of status migrainosus Chronic bilateral low back pain without sciatica Neck pain Cervicalgia Spondylosis of cervical region without myelopathy or radiculopathy Cervical spondylosis without myelopathy documented in this encounter Additional Health Concerns Assessment Noted Time PHQ-9 Depression Total Score: 0 07/04/20 1:50 PM CDT documented as of this encounter Care Teams Senior Sales Manager Relationship Specialty Start Date End Date Carey Vuong MD [address] [facility] [place] [address] PCP - General 01/15/02 Mehreen Scott MD [address] [place] [address] reptile keeper 12/15/19 Carey Vuong MD [address] [facility] [place] [address] Assigned PCP 02/22/21 Prema Hitchcock PA-C [address] [place] [address] Assigned Surgical Provider 11/04/21 Chidi Puckett MD [address] [place] [address] Assigned Sleep Provider 02/17/22 10/31/23 Harriet Lindsay Personal Advocate & Liaison (PAL) 06/17/22 Aisha Murdock PA-C [facility] [address] [place] [address] Assigned Neuroscience Provider 06/08/22 11/28/23 Lavern Pope MD [address] [facility] [address] [place] [id number] Cardiovascular Disease 11/11/22 Lavern Pope MD [address] [place] [id number] Assigned Heart and Vascular Provider 11/16/22 Elmer Paul MD [address] [place] [phone] Allergy & Immunology 02/17/23 Elmer Paul MD [address] [place] [address] Assigned Allergy Provider 04/26/23 documented as of this encounter
--- OUTSIDE RECORDS SUMMARY | 2023-12-29 23:11 | XMS_ITS | Encounter Summary ---
Author Name Unknown Organization [facility] Address [address] [place] [address] Care Team Providers Care Supervisor Records Change Name Role Phone Carey Vuong MD Primary Care Provider [phone] Mehreen Scott MD Unavailable [phone] Carey Vuong MD Unavailable Prema Hitchcock PA-C Unavailable +[phone] Chidi Puckett MD Unavai lable Harriet Lindsay Unavailable Unavailable Aisha Murdock PA-C Unavailable [phone] Lavern Pope MD Unavailable [phone] Lavern Pope MD Unavailable [phone] Elmer Paul MD Unavailable [phone] Elmer Paul MD Unavailable [phone] Reason for Visit * Reason Onset Date Comments Procedure 07/08/2023 C7-T1 [place] OLIVIA Encounter Details Date Type Department Care Team (Late st Contact Info) Description 07/08/2023 Telephone [facility] [address] [place] [address] [facility] (C7-T1 [place] OLIVIA ) Social History Tobacco Use Types Packs/Day [...] you attend [facility] or quaker services? More than 4 times per year 06/17/2022 Do you belong to any clubs o r organizations such as restoration groups, unions, fraternal or athletic groups, or [...] if positive 0 07/04/2023 [facility] [place] [facility] - Occupational Stress [...] place to sleep or slept in a fci (including now)? No 06/17/2022 Education Answer Date Recorded What is the highest level of school you have completed or the highest degree you have received? 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 [facility] Procedure ordered by Marlene Benoit Procedure ordered? C7-T1 [place] OLIVIA ??? Transforaminal Cervical OLIVIA - Send to [facility]) - No [facility] Site providers perform this procedure What insurance would patient like us to bill for this procedure? [facility] ?? IF SCHEDULING IN HOPE PAIN OR SPINE PLEASE SCHEDULE AT LEAST [...] to [facility] [place] Is patient scheduled at [facility]? NO If YES, route every encounter to [facility] CARE NAVIGATION POOL [[phone]] Is an white lead grinder needed? No Patient has a personal driver home? (Review Grid) YES: Informed Any chance of ? NO If YES, do NOT schedule and route to swimming pool salesperson - Dr. Price route to Michelle Shepherd and PM&R Nurse [[id number]] Is patient actively being treated for cancer or immunocompromised? No If YES, do NOT schedule and route to swimming pool salesperson/ Dr. Price's Team Does the patient have a bleeding or clotting disorder? No ?? If YES, okay to schedule AND route to RN nurse pool/ Dr. Price's Team ?? (For any patients with platelet count <100, RN must forward to provider) Is patient taking any Blood Thinners OR Antiplatelet medication? No If hold needed, do NOT schedule, route to swimming pool salesperson/ Dr. Price's Team ??? Examples: o Blood [...] notes AND route to the [facility]/ s Team ??? If OLIVIA and Contrast Dye [...] week before and 2 weeks after getting Covid Vaccine #2 or BOOSTER ??? If patient has concerns about the [...] route to [facility] High Priority/ Dr. Bryants Team ?? If MRI was not done [...] aspirin needs to be held for 6 days.YES: Informed ??? Sedation, If Sedation is ordered for [...] patient have any questions? NO Karyn Waller [facility] documented in this encounter Plan of Treatment Upcoming Encounters Date Type Department Care Team (Late st Contact Info) Description 03/19/2024 3:30 PM CDT Office Visit [facility] [address] [place] [phone] Elmer Paul MD [address] [facility] [address] [place] [address] 04/16/2024 8:30 AM CDT Lab M [facility] [address] [facility] [address] [place] [address] 04/20/2024 8:45 AM CDT Office [facility] [address] [facility] [address] [place] [phone] Lavern Pope MD [address] [facility] [address] [place] [id number] documented as of this encounter Visit Diagnoses Not on filedocumented in this encounter Additional Health Concerns Assessment Noted Time PHQ-9 Depression Total Score: 0 07/04/20 23 1:50 PM CDT documented as of this encounter Care Teams Supervisor Records Change Relationship Specialty Start Date End Date Carey Vuong MD [address] [facility] [place] [address] PCP - General 01/15/02 Mehreen Scott MD [address] [place] [phone] staple fiber washer 12/15/19 Carey Vuong MD [address] [facility] [place] [address] Assigned PCP 02/22/21 Prema Hitchcock PA-C [address] [place] [address] Assigned Surgical Provider 11/04/21 Chidi Puckett MD [address] [place] [address] Assigned Sleep Provider 02/17/22 10/31/23 Harriet Lindsay Personal Advocate & Liaison (PAL) 06/17/22 Aisha Murdock PA-C [facility] [address] [place] [address] Assigned Neuroscience Provider 06/08/22 11/28/23 Lavern Pope MD [address] [facility] [address] [place] [address] Cardiovascular Disease 11/11/22 Lavern Pope MD [address] [facility] [address] [place] [address] Assigned Heart and Vascular Provider 11/16/22 Elmer Paul MD [address], [address] [place] [address] Allergy & Immunology 02/17/23 Elmer Paul MD [address], [address] [place], [place] [address] Assigned Allergy Provider 04/26/23 documented as of this encounter
--- OUTSIDE RECORDS SUMMARY | 2023-12-29 23:12 | XMS_ITS | Encounter Summary ---
Author Name Unknown Organization [facility] Address [address] [place] [address] Care Team Providers Care Production Bow Maker Name Role Phone Carey Vuong MD Primary Care Provider [phone] Mehreen Scott MD Unavailable [phone] Carey Vuong MD Unavailable [phone] Prema Hitchcock PA-C Unavailable [phone] Chidi Puckett MD Unavai lable Harriet Lindsay Unavailable Unavailable Aisha Murdock PA-C Unavailable [phone] Lavern Pope MD Unavailable [phone] Lavern Pope MD Unavailable [phone] Elmer Paul MD Unavailable [phone] Elmer Paul MD Unavailable [phone] Encounter Details Date Type Department Care Team (Latest Contact Info) Description 05/26/2023 Travel Social History Tobacco Use Types Packs/Day [...] 06/17/2022 How often do you attend [facility] or spiritism services? More than 4 times [...] Answer Date Recorded PHQ-2 Score 1 11/19/2022 [facility] Questionnaire Answer Date [...] place to sleep or slept in a correction (including now)? No 06/17/2022 Education Answer Date Recorded What is the highest level of school you have completed or the highest degree you have received? Some college, no degree 12/12/2019 Sex and Gender Information Value Date Recorded Sex Assigned at Female 12/12/2019 6:30 PM BRONZER Gender Identity Female 12/12/2019 6:30 PM BRONZER Sexual Orientation Straight 04/04/2021 12 :18 PM CDT Travel History Travel Start Travel End [place] 12/06/2023 12/12/2023 COVID-19 Exposure Response Date Recorded In the last 10 days, have yo u been in contact with someone who was confirmed or suspected to have Coronavirus/COVID-19? No / Unsure 05/26/2023 12:40 PM CDT documented as of this encounter Plan of Treatment Upcoming Encounters Date Type Department Care Team (Late st Contact Info) Description 03/19/2024 3:30 PM CDT Office Visit [facility] [address] [place] [phone] Elmer Paul MD [address] [place] [address] 04/16/2024 8:30 AM CDT Lab M [facility] [address] [facility] [address] [place] [phone] 04/20/2024 8:45 AM CDT Office Visit [facility] [place] [address] [facility] [address] [place] [phone] Lavern Pope MD [address] [facility] [address] [place] [id number] documented as of this encounter Visit Diagnoses Not on filedocumented in this encounter Additional Health Concerns Assessment Noted Time PHQ-9 Depression Total Score: 6 11/19/20 22 2:05 PM BRONZER documented as of this encounter Care Teams Production Bow Maker Relationship Specialty Start Date End Date Carey Vuong MD [address] [facility] [place] [address] PCP - General 01/15/02 Mehreen Scott MD [address] [place] [phone] custom shoemaker 12/15/19 Carey Vuong MD [address] [facility] [place] [address] Assigned PCP 02/22/21 Prema Hitchcock PA-C [address] [facility] [place] [address] Assigned Surgical Provider 11/04/21 Chidi Puckett MD [address] [place], [place] [address] Assigned Sleep Provider 02/17/22 10/31/23 Harriet Lindsay Personal Advocate & Liaison (PAL) 06/17/22 Aisha Murdock PA-C [facility] [address] [place] [address] Assigned Neuroscience Provider 06/08/22 11/28/23 Lavern Pope MD [address] [facility] [address] [place], [place] [address] Cardiovascular Disease 11/11/22 Lavern Pope MD [address] [facility] [address] [place], [place] [address] Assigned Heart and Vascular Provider 11/16/22 Elmer Paul MD [address] [place], [place] [address] Allergy & Immunology 02/17/23 Elmer Paul MD [address], [address] [place] [address] Assigned Allergy Provider 04/26/23 documented as of this encounter
--- OUTSIDE RECORDS SUMMARY | 2023-12-29 23:12 | XMS_ITS | Encounter Summary ---
Author Name Unknown Organization [facility] Address [address] [place] [address] Care Team Providers Care Behavioral Health Associate Name Role Phone Carey Vuong MD Primary Care Provider [phone] Mehreen Scott MD Unavailable [phone] Carey Vuong MD Unavailable Prema Hitchcock PA-C Unavailable [phone] Chidi Puckett MD Unavai lable Harriet Lindsay Unavailable Unavailable Aisha Murdock PA-C Unavailable [phone] Lavern Pope MD Unavailable [phone] Lavern Pope MD Unavailable [phone] Elmer Paul MD Unavailable [phone] Elmer Paul MD Unavailable [phone] Encounter Details Date Type Department Care Team (Latest Contact Info) Description 05/30/2023 Travel Social History Tobacco Use Types Packs/Day [...] you attend [facility] or hinduism services? More than 4 times [...] Answer Date Recorded PHQ-2 Score 1 11/19/2022 [facility] Questionnaire Answer Date Recorded [...] place to sleep or slept in a care home (including now)? No 06/17/2022 Education Answer Date Recorded What is the highest level of school you have completed or the highest degree you have received? Some college, no degree 12/12/2019 Sex and Gender Information Value Date Recorded Sex Assigned at Female 12/12/2019 6:30 PM SEAM RUBBER Gender Identity Female 12/12/2019 6:30 PM SEAM RUBBER Sexual Orientation Straight 04/04/2021 12 :18 PM CDT Travel History Travel Start Travel End [place] 12/06/2023 12/12/2023 COVID-19 Exposure Response Date Recorded In the last 10 days, have yo u been in contact with someone who was confirmed or suspected to have Coronavirus/COVID-19? No / Unsure 05/30/2023 3:08 PM CDT documented as of this encounter Plan of Treatment Upcoming Encounters Date Type Department Care Team (Late st Contact Info) Description 03/19/2024 3:30 PM CDT Office Visit [facility] [address] [place] [phone] Elmer Paul MD [address], [address] [place] [address] 04/16/2024 8:30 AM CDT Lab M [facility] [address] [facility] [address] [place] [phone] 04/20/2024 8:45 AM CDT Office Visit [facility] [place] [address] [facility] [address] [place] [phone] Lavern Pope MD [address] [facility] [address] [place] [id number] documented as of this encounter Visit Diagnoses Not on filedocumented in this encounter Additional Health Concerns Assessment Noted Time PHQ-9 Depression Total Score: 6 11/19/20 22 2:05 PM SEAM RUBBER documented as of this encounter Care Teams Behavioral Health Associate Relationship Specialty Start Date End Date Carey Vuong MD [address] [facility] [place] [address] PCP - General 01/15/02 Mehreen Scott MD [address] [place] [phone] hvac sheet metal installer 12/15/19 Carey Vuong MD [address] [facility] [place] [address] Assigned PCP 02/22/21 Prema Hitchcock PA-C [address] [facility] [address] [place] [address] Assigned Surgical Provider 11/04/21 Chidi Puckett MD [address] [place], [place] [address] Assigned Sleep Provider 02/17/22 10/31/23 Harriet Lindsay Personal Advocate & Liaison (PAL) 06/17/22 Aisha Murdock PA-C [facility] [address] [place] [address] Assigned Neuroscience Provider 06/08/22 11/28/23 Lavern Pope MD [address] [facility] [address] [place], [place] [address] Cardiovascular Disease 11/11/22 Lavern Pope MD [address] [facility] [address] [place], [place] [address] Assigned Heart and Vascular Provider 11/16/22 Elmer Paul MD [address] [place], [place] [address] Allergy & Immunology 02/17/23 Elmer Paul MD [address], [address] [place] [address] Assigned Allergy Provider 04/26/23 documented as of this encounter
--- OUTSIDE RECORDS SUMMARY | 2023-12-29 23:12 | XMS_ITS | Encounter Summary ---
Author Name Unknown Organization [facility] Address [address] [place] [address] Care Team Providers Care Cloth Trimmer Hand Name Role Phone Carey Vuong MD Primary Care Provider [phone] Mehreen Scott MD Unavailable [phone] Carey Vuong MD Unavailable Prema Hitchcock PA-C Unavailable [phone] Chidi Puckett MD Unavai lable Harriet Lindsay Unavailable Unavailable Aisha Murdock PA-C Unavailable [phone] Lavern Pope MD Unavailable [phone] Lavern Pope MD Unavailable [phone] Elmer Paul MD Unavailable [phone] Elmer Paul MD Unavailable [phone] Encounter Details Date Type Department Care Team (Latest Contact Info) Description 06/09/2023 Travel Social History Tobacco Use Types Packs/Day [...] How often do you attend [facility] or gnosticism services? More than 4 times per year [...] Answer Date Recorded PHQ-2 Score 1 11/19/2022 [facility]ational [facility] Questionnaire Answer Date Recorded [...] place to sleep or slept in a halfway (including now)? No 06/17/2022 Education Answer Date Recorded What is the highest level of school you have completed or the highest degree you have received? Some college, no degree 12/12/2019 Sex and Gender Information Value Date Recorded Sex Assigned at Female 12/12/2019 6:30 PM DATA SUPPORT ANALYST Gender Identity Female 12/12/2019 6:30 PM DATA SUPPORT ANALYST Sexual Orientation Straight 04/04/2021 12 :18 PM CDT Travel History Travel Start Travel End [place] 12/06/2023 12/12/2023 COVID-19 Exposure Response Date Recorded In the last 10 days, have yo u been in contact with someone who was confirmed or suspected to have Coronavirus/COVID-19? No / Unsure 06/09/2023 8:27 PM CDT documented as of this encounter Plan of Treatment Upcoming Encounters Date Type Department Care Team (Late st Contact Info) Description 03/19/2024 3:30 PM CDT Office Visit [facility] [address] [place] [phone] Elmer Paul MD [address] [place] [address] 04/16/2024 8:30 AM CDT Lab M [facility] [address] [facility] [address] [place] [phone] 04/20/2024 8:45 AM CDT Office Visit [facility] [place] [address] [facility] [address] [place] [phone] Lavern Pope MD [address] [facility] [address] [place] [address] documented as of this encounter Visit Diagnoses Not on filedocumented in this encounter Additional Health Concerns Assessment Noted Time PHQ-9 Depression Total Score: 6 11/19/20 22 2:05 PM DATA SUPPORT ANALYST documented as of this encounter Care Teams Cloth Trimmer Hand Relationship Specialty Start Date End Date Carey Vuong MD [address] [facility] [place] [address] PCP - General 01/15/02 Mehreen Scott MD [address] [place] [phone] hinging machine operator 12/15/19 Carey Vuong MD [address] [facility] [place] [address] Assigned PCP 02/22/21 Prema Hitchcock PA-C [address] [facility] [address] [place] [address] Assigned Surgical Provider 11/04/21 Chidi Puckett MD [address] [place], [place] [address] Assigned Sleep Provider 02/17/22 10/31/23 Harriet Lindsay Personal Advocate & Liaison (PAL) 06/17/22 Aisha Murdock PA-C [facility] [address] [place] [address] Assigned Neuroscience Provider 06/08/22 11/28/23 Lavern Pope MD [address] [facility] [address] [place], [place] [address] Cardiovascular Disease 11/11/22 Lavern Pope MD [address] [facility] [address] [place], [place] [address] Assigned Heart and Vascular Provider 11/16/22 Elmer Paul MD [address] [place], [place] [address] Allergy & Immunology 02/17/23 Elmer Paul MD [address] [place] [address] Assigned Allergy Provider 04/26/23 documented as of this encounter
--- OUTSIDE RECORDS SUMMARY | 2023-12-29 23:12 | XMS_ITS | Encounter Summary ---
Author Name Unknown Organization [facility] Address [address] [place] [id number] Care Team Providers Care Utilization Coordinator Name Role Phone Carey Vuong MD Primary Care Provider [phone] Mehreen Scott MD Unavailable [phone] Carey Voung MD Unavailable [phone] Prema Hitchcock PA-C Unavailable [phone] Chidi Puckett MD Unavai lable Harriet Lindsay Unavailable Unavailable Aisha Murdock PA-C Unavailable [phone] Lavern Pope MD Unavailable [phone] Lavern Pope MD Unavailable [phone] Elmer Paul MD Unavailable [phone] Elmer Paul MD Unavailable [phone] Reason for Referral * Consultation (Routine) - Pending Review Specialty Diagnoses / Procedures Referred By Contdhara t Referred To Contact Diagnoses Acute left-sided low back pain without sciatica Lumbar radiculopathy Marlene Benoit, COMPUTER [employer] PROFESSIONAL [address] [place] [address] Referral ID Status Reason Start Date Expiration Date V isits Requested Visits Authorized [id number] Pending Review 05/26/2023 05/25/2024 1 1 Scheduling Instructions Interventional Evaluation: Interventional Injection Only - Type of Injection: L4-5 [place] KD Radiology? Yes Reason for Visit * Reason Comments Pain Encounter Details Date Type Department Care Team (Late st Contact Info) Description 05/26/2023 1:00 PM CDT Office Visit [facility] [place] [id number] [place] [address] [address] [place], [place] [id number] [place] [address] [place], [place] [id number] Lumbar radiculopathy (Primary Dx); Acute left-sided low back pain without sciatica; Neck pain; Migraine without aura and without status migrainosus, [...] often do you attend chur ch or mormonism services? More than 4 times per year 06/17/2022 Do you belong to any clubs o r organizations such as presybeterian groups, unions, fraternal or athletic groups, or [...] Answer Date Recorded PHQ-2 Score 1 11/19/2022 [facility] [...] place to sleep or slept in a longterm (including now)? No 06/17/2022 Education Answer Date Recorded What is the highest level of school you have completed or the highest degree you have received? Some college, no degree 12/12/2019 Sex and Gender Information Value Date Recorded Sex Assigned at Female 12/12/2019 6:30 PM PLANNING LEAD Gender Identity Female 12/12/2019 6:30 PM PLANNING LEAD Sexual Orientation Straight 04/04/2021 12 :18 PM CDT Travel History Travel Start Travel End [place] 12/06/2023 12/12/2023 COVID-19 Exposure Response Date Recorded In the last 10 days, have ele u been in contact with someone who was confirmed or suspected to have Coronavirus/COVID-19? No / Unsure 05/26/2023 12:40 PM CDT documented as of this encounter Last Filed Vital Signs Vital Sign Reading Time Taken Comments Blood Pressure 106/72 05/26/2023 12:43 PM CDT Pulse 64 05/26/2023 12:43 PM CDT Temperature - - Respiratory Rate - - Oxygen Saturation 99% 05/26/2023 12:43 PM CDT Inhaled Oxygen Concentration - - Weight - - Height - - Body Mass Index - - documented in this encounter Patient Instructions * Patient Instructions* Marlene Benoit NP - 05/26/2023 1:00 PM CDT I ordered Lumbar epidural steroid injection. Increase Topiramate to 50mg twice a day. After the lumbar injection, lets check in with a video visit to make plans for next steps (neck injection?) Scheduling/Clinic telephone number for ALL locations: [phone] After Hours On-Call Service for Emergencies: [phone] Call with any questions about your care and for scheduling assistance. Calls are returned Friday through Friday between 8 AM and 4:00 PM. We usually get back to you within 2-3 business days depending on the issue/request. I am not in the clinic on Fridays. If we are prescribing your medications: For medication refills, call the clinic or send a [employer] message 7 days in advance. Please includethe name of the requested medication and your preferred pharmacy. Please allow 3-4 days to be processed. Per [place] State Law, all controlled substance prescriptions must [...] Progress Notes * Marlene Benoit NP - 05/26/2023 1:00 PM CDT Images from the original note were not included. [facility] Date of Visit: 05/26/2023 Last visit: 01/30/2023 Original Consult: 01/06/2023 Reason for visit: Follow-Up: Danielle Garza is a 47 year old female with PMH significant for asthma, depression,SVT s/p ablation, knee pain (s/p 12 surgeries) [...] [facility] - patient cancelled. 1. Low back pain improved after initial flare in May 2022 after treatment with PT and chiropractic. Had resumed exercise program, but without any impact, lowered weights lifted, lowered intensity overall. August 2022, pain seemed to slowly come back, started as a soreness. Epidural injection inOctober, helped quite a bit. In December 2022, left leg numbness from anterior thigh to the foot. Comes and goes, worse after standing. Occasional pain into her right leg. 2. Neck pain: Cancelled [facility] neurology consult, I am sick of going to the doctor. Episodes where she had profound tremors and shaking, did not get evaluated, laid down flat and symptoms resolved in10 minutes. Pain improved with topiramate and cervical KD in January 2023. 3. Headaches occur starting in the back of her neck and come to her forehead. Occasional stabbing type pain. Photo and phonophobia. Has a migraine helmet (cold pack that is over her whole head), thishelps a lot. Excedrin Migraine occasionally helps. Ibuprofen occasionally helps. Has a variety of light headaches and severe headaches that wake her up in the middle of the night. Used Imitrex in the past, not helpful. Aleve not helpful. Headaches typically last from a few hours to a few days. Has headaches 20 days a month. Has worsened lately. Neck pain is in the middle of her neck and this iswhere her headache starts. When neck gets sore, does exercises and this helps somewhat. Trying a different pillows to find one that will help her avoid headaches. Can radiate to shoulders, aching anddull pain. Recommendations from last visit: 1. Neck pain 2. Migraine without aura and without status migrainosus, not intractable Continue topamax, appears to be providing multiple benefits for pain, headaches and supporting weight loss. Advised moderation in exercise routine for her spinal health. - topiramate (TOPAMAX) 25 MG tablet; Take 1 tablet (25 mg) by mouth 2 times daily Dispense: 180 tablet; Refill: 1 3. Acute right-sided low back pain without sciatica Resolved. Use robaxin if needed for flare of pain. Since last seen, Danielle reports: - Back pain is flared up, thinks it could be related to sleeping in different beds. Tore both calf muscles since I last saw her, now both have healed. Pain is worse in the AM. Also was worse after she returned to play softball. Occasional numbness on the top her her left thigh, movement seems to make it feel better, thinks that it is more numb after standing. Robaxin helpful, if she takes it before bed, can sleep and wake up without spasms or pain. - Also having severe daily headaches. Seem to be focused in her posterior neck laterally, without radiation to her forehead. This started bothering her again recently. Was markedly better after cervical KD on 01/13/[address] Terry. - Still taking Topiramate 25 mg twice a day. Most of the time it works, but now feels like things feel like it is not working as well as it did when she first started it. - Lots of stress with caring for aging in-laws as they transition from their home into supportive care environment. Pain description: Location: neck, lower back, radiation into left anterolateral thigh. Quality: aching Duration: intermittent Severity/Intensity (0 = No pain to 10 = Worst pain imaginable) Now: 03/10 Aggravating factors include: strenuous activities Relieving factors include: lying down, medication, relaxation Current pain medications: Ibuprofen prn Excedrin Migraine prn Topamax 25 mg BID Robaxin 500-1000 mg prn Review of [place] Prescription Monitoring Program (VOLUMETRIC WEIGHER): No concern for abuse or misuse of controlled medications based on this report. Last viewed on 05/26/2023 PAIN MANAGEMENT TREATMENT HISTORY 1. MEDICATIONS: Opiates: no NSAIDS: Ibuprofen (Advil, Motrin). Medication was unsure Naproxen (Aleve). Medication was unsure, somewhat helpful? Muscle Relaxants: Robaxin -helpful Anti-migraine mediations: Sumatriptan (Imitrex tablets). Medication was not helpful, Excedrin Migrane- somewhat helpful, Topamax - very helpful Anti-depressants: Citalopram & Bupropion helpful for mood Sleep aids: None Anxiolytics: None Neuropathics: not tried, Topirimate - helpful for migraines and pain Topicals: not tried Adjuvant pain medications: Acetaminophen 2. PHYSICAL THERAPY: Yes at [facility] Summer 2021, was combination of PT and Chiropractic - helped, still does HEP 3. PAIN PSYCHOLOGY: No 4. SURGERY: Not for back or neck. 15 knee surgeries. 5. INJECTIONS: 01/06/23: C7-T1 interlaminar epidural steroid injection with [...] endplate osteophytic ridging and mildbilateral uncovertebral spurring. [id number] right neural foraminal stenosis. The left neuralforamen [...] No spinal canal or neural foraminal stenosis. ?? IMPRESSION: 1. Multilevel degenerative changes of the cervical spine, as described. 2. Mild spinal canal stenosis at C6-C7. Otherwise, no significant spinal canal narrowing. 3. Multilevel neural foraminal stenosis, greatest on the right at C4-C5 and C5-C6. Social History: Social History Tobacco Use ??? Smoking status: Former Packs/day: 0.00 Years: 10.00 Pack years: 0.00 Types: Cigarettes, Cigars Quit date: 12/01/2022 Years since quittin.4 ??? Smokeless tobacco: Never ??? Tobacco comments: smokes a single cigar nightly Vaping Use ??? Vaping Use: Never used Substance Use Topics ??? Alcohol use: Not Currently Alcohol/week: 6.0 standard drinks of alcohol Types: 6 Glasses of wine per week ??? Drug use: No Social History Social History Narrative . 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 Enjoys working out. Medications and Allergies reviewed. OBJECTIVE Vitals: 05/26/23 1243 BP: 106/72 Pulse: 64 SpO2: 99% Constitutional: Well developed, well nourished, [...] tone. Unremarkable spinal curvature. Cervical spine: ROM: full. Normal 5/5 UE strength bilaterally Normal sensation to light touch in the C4-T1 distributions bilaterally No allodynia, dysesthesia, or hyperalgesia in the upper extremities bilaterally Lumbar/Thoracic spine: ROM: full Normal 5/5 LE strength bilaterally Normal sensation to light touch in the lower extremities bilaterally No allodynia, dysesthesia, or hyperalgesia in the lower extremities bilaterally ASSESSMENT AND PLAN: Lumbar radiculopathy Acute left-sided low back pain without sciatica Lumbar KD ordered, repeat L4-5 IL KD. Continue robaxin as needed. - methocarbamol (ROBAXIN) 500 MG tablet Dispense: 60 tablet; Refill: 3 - PAIN INJECTION EVAL/TREAT/FOLLOW UP Neck pain Migraine without aura and without status migrainosus, not intractable Increase Topiramate to 50 mg BID using existing supply of 25 mg capsules. Follow up with me in about a month to reassess symptoms and response to treatment. At that time could discuss cervical kd versus other treatment options. Marlene Benoit, CUSTOMER SUPPORT ASSISTANT-BC, PMGT-BC, AP-PMN [facility] documented in this encounter Plan of Treatment Upcoming Encounters Date Type Department Care Team (Late st Contact Info) Description 03/19/2024 3:30 PM CDT Office Visit [facility] [address] [place] [phone] Elmer Paul MD [address] [facility] [address] [place] [address] 04/16/2024 8:30 AM CDT Lab [facility] [address] [facility] [address] [place] [address] 04/20/2024 8:45 AM CDT Office Visit [facility] [address] [facility] [address] [place] [phone] Lavern Pope MD [address] [facility] [address] [place] [id number] Scheduled Referrals Name Type Priority Associated Diagnoses Orde r Schedule PAIN INJECTION EVAL/TREAT/FOLLOW UP Referral Routine Acute left-sided low back pain without sciatica Lumbar radiculopathy Ordered: 05/26/2023 documented as of this encounter Visit Diagnoses Diagnosis Lumbar radiculopathy- Primary Thoracic or lumbosacral neuritis or radiculitis, unspecified Acute left-sided low back pain without sciatica Neck pain Cervicalgia Migraine without aura and without status migrainosus, not intractable Migraine without aura, without mention of intractable migraine without mention of status migrainosus documented in this encounter Additional Health Concerns Assessment Noted Time PHQ-9 Depression Total Score: 6 11/19/20 22 2:05 PM PLANNING LEAD documented as of this encounter Care Teams Utilization Coordinator Relationship Specialty Start Date End Date Carey Vuong MD [address] [place] [address] [place] [address] PCP - General 01/15/02 Mehreen Scott MD [address] [place] [phone] leakage tester 12/15/19 Carey Vuong MD [address] [place] [address] [place] [id number] Assigned PCP 02/22/21 Prema Hitchcock PA-C [address] [place] [address] Assigned Surgical Provider 11/04/21 Chidi Puckett MD [address] [place], [place] [address] Assigned Sleep Provider 02/17/22 10/31/23 Harriet Lindsay Personal Advocate & Liaison (PAL) 06/17/22 Aisha Murdock PA-C [facility] [address] [place] [address] Assigned Neuroscience Provider 06/08/22 11/28/23 Lavern Pope MD [address] [facility] [address] [place] [address] Cardiovascular Disease 11/11/22 Lavern Pope MD [address] [facility] [address] [place], [place] [address] Assigned Heart and Vascular Provider 11/16/22 Elmer Paul MD [address] [place] [address] Allergy & Immunology 02/17/23 Elmer Paul MD [address] [place], [place] [address] Assigned Allergy Provider 04/26/23 documented as of this encounter
--- OUTSIDE RECORDS SUMMARY | 2023-12-29 23:12 | XMS_ITS | Encounter Summary ---
Author Name Unknown Organization [place] Address [address] [place] [address] Care Team Providers [facility] Owner Name Role Phone Carey Vuong MD Primary Care Provider [phone] Mehreen Scott MD Unavailable [phone] Carey Vuong MD Unavailable [phone] Prema Hitchcock PA-C Unavailable [phone] Chidi Puckett MD Unavai lable Harriet Lindsay Unavailable Unavailable Aisha Murdock PA-C Unavailable [phone] Lavern Pope MD Unavailable [phone] Lavern Pope MD Unavailable [phone] Elmer Paul MD Unavailable [phone] Elmer Paul MD Unavailable [phone] Reason for Referral * Clinically Administered Medications (Routine) - Closed Specialty Diagnoses / Procedures Referred By Contac t Referred To Contact Pain & Palliative Care Diagnoses UNKNOWN [place] [address] [place] [address] Pain Management [id number] [place] [address] [address] [facility] [place] [address] Referral ID Status Reason Start Date Expiration Date Visits Re quested Visits Authorized [id number] Closed 05/30/2023 05/29/2024 1 1 Reason for Visit * Reason Comments Pain * Consultation (Routine) - Pending Review Specialty Diagnoses / Procedures Referred By Contac t Referred To Contact Diagnoses Acute left-sided low back pain without sciatica [place] [address] [place] [address] Referral ID Status Reason Start Date Expiration Date V isits Requested Visits Authorized Pending Review 05/26/2023 05/25/2024 1 1 Encounter Details Date Type Department Care Team (Latest Contact Info) Description 05/30/2023 3:15 PM CDT Radiology Injection Office Visit [facility] [place] [address] [place] [address] [place] [address] [place] [address] [place] [address] [place] [address] Lumbar radiculopathy (Primary Dx) Social History Tobacco Use [...] often do you attend chur ch or jewish services? More than 4 times per year 06/17/2022 Do you belong to any clubs o r organizations such as mosque groups, unions, fraternal or athletic groups, or [...] Answer Date Recorded PHQ-2 Score 1 11/19/2022 [facility] of Occupat ional [facility] - Occupational Stress Questionnaire Answer Date [...] Sex Assigned at Female 12/12/2019 6:30 PM PROOF CLERK Gender Identity Female 12/12/2019 6:30 PM PROOF CLERK Sexual Orientation Straight 04/04/2021 12 :18 PM [...] Sign Reading Time Taken Comments Blood Pressure 109/73 05/30/2023 3:29 PM CDT Pulse 66 05/30/2023 3:29 PM CDT Temperature - - Respiratory Rate - - Oxygen Saturation 98% 05/30/2023 3:29 PM CDT Inhaled Oxygen Concentration - - Weight - - Height - - Body Mass Index - - documented in this encounter Patient Instructions * Patient Instructions* Yazmin Mendez RN - 05/30/2023 3:15 PM CDT [facility] Procedure Discharge Instructions Today you saw: Dr. Eden Linn Your procedure: Epidural steroid injection Medications used: Lidocaine (anesthetic) Kenalog (steroid) Omnipaque (contrast) Saline Be cautious when walking as numbness and/or [...] up with Marlene Benoit APRN, CNP in 4-6 weeks If you experience any of the following, call the pain center line during work hours at [phone] on-call physician after hours at [phone]: -Fever over 100 degree F -Swelling, bleeding, redness, drainage, warmth at the injection site -Progressive weakness or numbness in your legs or arms -Loss of bowel or bladder function -Unusual headache that is not relieved by Tylenol or your regular headache medication -Unusual new onset of pain that is not improving documented in this encounter Progress Notes * Eden Linn MD - 05/30/2023 3:15 PM CDT Images from the original note were not included. [facility] - Procedure Note Date of Visit: 05/30/2023 Procedure performed: Lumbar L4-5 interlaminar epidural steroid injection Diagnosis: Lumbar spondylosis; Lumbar radiculitis/radiculopathy Flare Maker: Eden Linn MD Anesthesia: none Indications: Danielle A Greg is a 47 year old female who is seen at the request of Marlene Benoit CNP for a lumbar epidural steroid injection. The patient describes low back pain with radiationinto the left buttock and posterior thigh. The patient has been exhibiting symptoms consistent withlumbar intraspinal inflammation and radiculopathy. Symptoms have been persistent, disabling, and intermittently severe. The patient reports minimal improvement with conservative treatment, including PT, medicare interviewer and medications. This is a repeat injection. Previous L4-5 ILESI done by myself on 09/02/2022 provided good pain relief for a period of 6 months. MRI of the LUMBAR SPINE was done on 08/07/2022 which showed: FINDINGS: For numbering purposes, a transitional thoracolumbar [...] L1-L2 disc. Cauda equina is unremarkable. No appreciable extraspinal abnormality. ?? Segmental Analysis: ?? T12-L1: Minimal disc height loss. Shallow right central bulge. Mild bilateral facet arthropathy. No foraminal or spinal canal stenosis. ?? L1-L2: Severe disc loss. Disc bulge. Moderate bilateral facet arthropathy. No right foraminal stenosis. Mild left foraminal stenosis. Mild spinal canal stenosis. ?? L2-L3: Mild disc height loss. Disc bulge with shallow right foraminal protrusion. Mild bilateral facet arthropathy. Mild, if any, right foraminal stenosis. No left foraminal stenosis. Mild, if any, spinal canal stenosis. ?? L3-L4: Mild disc height loss. Disc bulge. Mild bilateral facet arthropathy. No foraminal stenoses. Mild, if any, spinal canal stenosis. ?? L4-L5: Mild disc height loss. Minimal bulge. Moderate bilateral facet arthropathy. Mild right foraminal stenosis. No left foraminal stenosis. Mild spinal canal stenosis. ?? L5-S1: Disc height maintained. Shallow central bulge. Moderate bilateral facet arthropathy. No foraminal or spinal canal stenosis. IMPRESSION: 1. Multilevel degenerative change as detailed. 2. No high-grade stenoses. Allergies: Allergies Allergen Reactions ??? Penicillins Itching Vitals: There were no vitals taken for this visit. Review of Systems: The patient denies recent [...] prepped and draped in sterile fashion. The L4-5 interspace was identified with use of fluoroscopy in AP view. A 25- gauge, 1.5 inch needle was used to anesthetize the skin and subcutaneous tissue entry site with a total of 2 ml of 1% lidocaine. Under fluoroscopic visualization, a 22-gauge, 4.5 inch Tuohy epidural needle was slowly advanced towards the epidural space a few millimeters left of midline. The latter part of the needle advancement was guided with fluoroscopy in the lateral view. The epidural space was identified using lossof resistance technique. After negative aspiration for heme and cerebrospinal fluid, a total of 1 mL of non-ionic contrast was injected to confirm needle placement with 0 mL of contrast wasted. Epidurogram confirmed spread within the posterior epidural space. 2 ml of 40mg/ml of triamcinolone, 2 ml of 1% lidocaine, and 1 ml of preservative free saline was injected. The needle was removed. Images were saved to PACS. The patient tolerated the procedure well, and there was no evidence of procedural complications. Nonew sensory or motor deficits were noted following the procedure. The patient was stable and able to ambulate on discharge home. Post-procedure instructions were provided. Pre-procedure pain score: 8/10 in the back, 0/10 in the leg Post-procedure pain score: 0/10 in the back, 0/10 in the leg Assessment/Plan: Danielle Garza is a 47 year old female s/p lumbar interlaminar epidural steroid injection today for lumbar spondylosis and radiculitis/radiculopathy. 1. Following today's procedure, the patient was advised to contact the Pain Management Center for any of the following: Fever, chills, or night sweats New onset of pain, numbness, or weakness Any questions/concerns regarding the procedure If unable to contact the Pain Center, the patient was instructed to go to a local Emergency Room for any complications. 2. The patient will receive a follow-up call in 1 week. 3. Follow-up with the referring provider in 2 weeks for post-procedure evaluation. EDEN LINN MD Pain Management & Addiction Medicine documented in this encounter Nursing Notes * Jocelyne Arango CMA - 05/30/2023 3:15 PM CDT Pre-procedure Intake If YES to any questions or NO to having a ems driver Please complete laminated checklist and leave on the computer keyboard for Provider, verbally inform provider if able. For SCS Trial, RFA's or any sedation procedure: NA ?? If yes, for how long? Are you taking any any blood thinners such as Coumadin, Warfarin, Jantoven, Pradaxa Xarelto, Eliquis, Edoxaban, Enoxaparin, Lovenox, Heparin, Arixtra, Fondaparinux, or Fragmin? OR Antiplatelet medication such as Plavix, Brilinta, or Effient? NO ?? If yes, when did you take your last dose? Do you take aspirin? NO ?? If cervical procedure, have you held aspirin for 6 days? NA Do you have any allergies to contrast dye, iodine, steroid and/or numbing medications? NO Are you currently taking antibiotics or have an active infection? NO Have you had a fever/elevated temperature within the past week? NO Are you currently taking oral steroids? NO Do you have a ems driver? Yes Are you or ? NA Have you received any vaccines in the past 2 weeks? NO Notify provider and RNs if systolic BP >170, diastolic BP >100, P >100 or O2 sats < 90% * Yazmin Mendez RN - 05/30/2023 3:15 PM CDT Discharge Information IV Discontiued Time: NA [...] to accompany patient home? Yes Signature/Title: Yazmin Mendez, RN RN Miner Helper [facility] documented in this encounter Plan of Treatment Upcoming Encounters Date Type Department Care Team (Late st Contact Info) Description 03/19/2024 3:30 PM CDT Office Visit [facility] [address] [facility] [address] [place] [phone] Elmer Paul MD [address] [facility] [address] [place] [address] 04/16/2024 8:30 AM CDT Lab [facility] [address] [place] [phone] 04/20/2024 8:45 AM CDT Office Visit [facility] [address] [facility] [address] [place] [phone] Lavern Pope MD [address] [facility] [address] [place] [id number] documented as of this encounter Procedures Procedure Name Priority Date/Time Associated Diagnosis Comments PAIN INTERLAMINAR EPDRL STRD INJ LMBR SCRL Routine 05/30/2023 3:27 PM CDT Lumbar radiculopathy documented in this encounter Results * PAIN Interlaminar Epidural Steroid Injection Lumbar/Sacral (05/30/2023 3:27 PM CDT) Anatomical Region Laterality Modality PAIN/SPINE Radio Fluoroscop y Impressions 05/30/2023 3:30 PM CDT IMPRESSION: ?? 1. Multilevel degenerative change as detailed. 2. No high-grade stenoses. Allergies: Allergies Allergen Reactions ? ? Penicillins Itching Vitals: There were no vitals taken for this visit. Review of Systems: The patient denies recent [...] prepped and draped in sterile fashion. The L4-5 interspace was identified with use of fluoroscopy in AP view. A 25-gauge, 1.5 inch needle was used to anesthetize the skin and subcutaneous tissue entry site with a total of 2 ml of 1% lidocaine. Under fluoroscopic visualization, a 22-gauge, 4.5 inch Tuohy epidural needle was slowly advanced towards the epidural space a few millimeters left of midline. The latter part of the needle advancement was guided with fluoroscopy in the lateral view. The epidural space was identified using loss of resistance technique. After negative aspiration for heme and cerebrospinal fluid, a total of 1 mL of non-ionic contrast was injected to confirm needle placement with 0 mL of contrast wasted. Epidurogram confirmed spread within the posterior epidural space. 2 ml of 40mg/ml of triamcinolone, 2 ml of 1% lidocaine, and 1 ml of preservative free saline was injected. The needle was removed. ??Images were saved to PACS. The patient tolerated the procedure well, and there was no evidence of procedural complications. No new sensory or motor deficits were noted following the procedure. The patient was stable and able to ambulate on discharge home. Post-procedure instructions were provided. Pre-procedure pain score: 8/10 in the back, 0/10 in the leg Post-procedure pain score: 0/10 in the back, 0/10 in the leg Assessment/Plan: Danielle Garza is a 47 year old female s/p lumbar interlaminar epidural steroid injection today for lumbar spondylosis and radiculitis/radiculopathy. 1. Following today's procedure, the patient was advised to contact the Pain Management Center for any of the following: Fever, chills, or night sweats New onset of pain, numbness, or weakness Any questions/concerns regarding the procedure If unable to contact the Pain Center, the patient was instructed to go to a local Emergency Room for any complications. 2. The patient will receive a follow-up call in 1 week. 3. Follow-up with the referring provider in 2 weeks for post-procedure evaluation. EDEN LINN MD Pain Management & Addiction Medicine Narrative 05/30/2023 3:30 PM CDT Table formatting from the original result was not included. Images from the original result were not included. [facility] - Procedure Note Date of Visit: 05/30/2023 Procedure performed: Lumbar L4-5 interlaminar epidural steroid injection Diagnosis: Lumbar spondylosis; Lumbar radiculitis/radiculopathy Flare Maker: Eden Linn MD Anesthesia: none Indications: Danielle Garza is a 47 year old female who is seen at the request of Marlene Benoit CNP for a lumbar epidural steroid injection. The patient describes low back pain with radiation into the left buttock and posterior thigh. The patient has been exhibiting symptoms consistent with lumbar intraspinal inflammation and radiculopathy. Symptoms have been persistent, disabling, and intermittently severe. The patient reports minimal improvement with conservative treatment, including PT, medicare interviewer and medications. This is a repeat injection. ??Previous L4-5 ILESI done by myself on 09/02/2022 provided good pain relief for a period of 6 months. MRI of the LUMBAR SPINE was done on 08/07/2022 which showed: FINDINGS: For numbering purposes, a transitional thoracolumbar [...] L1-L2 disc. Cauda equina is unremarkable. No appreciable extraspinal abnormality. ?? Segmental Analysis: ?? T12-L1: ??Minimal disc height loss. Shallow right central bulge. Mild bilateral facet arthropathy. No foraminal or spinal canal stenosis. ?? L1-L2: ??Severe disc loss. Disc bulge. Moderate bilateral facet arthropathy. No right foraminal stenosis. Mild left foraminal stenosis. Mild spinal canal stenosis. ? L2-L3: ??Mild disc height loss. Disc bulge with shallow right foraminal protrusion. Mild bilateral facet arthropathy. Mild, if any, right foraminal stenosis. No left foraminal stenosis. Mild, if any, spinal canal stenosis. ? L3-L4: Mild disc height loss. Disc bulge. Mild bilateral facet arthropathy. No foraminal stenoses. Mild, if any, spinal canal stenosis. ?? L4-L5: ??Mild disc height loss. Minimal bulge. Moderate bilateral facet arthropathy. Mild right foraminal stenosis. No left foraminal stenosis. Mild spinal canal stenosis. ? L5-S1: ??Disc height maintained. Shallow central bulge. Moderate bilateral facet arthropathy. No foraminal or spinal canal stenosis. Eden Linn MD [facility] [place] [facility] [place] documented in this encounter Visit Diagnoses Diagnosis Lumbar radiculopathy- Primary Thoracic or lumbosacral neuritis or radiculitis, unspecified documented in this encounter Administered Medications Inactive Administered Medications - up to 3 most recent administrations Medication Order MAR Action Action Date Dose Rate Site iohexol (OMNIPAQUE) 300 mg/mL injection 10 mL 10 mL, EPIDURAL, ONCE, On Fri05/30/23 at 1530, For 1 dose $Given by Other 05/30/2023 3:28 PM CDT 1 mL Back triamcinolone (KENALOG-40) injection 40 mg 40 mg, EPIDURAL, ONCE, On Fri05/30/23 at 1530, For 1 dose $Given 05/30/2023 3:26 PM CDT 40 mg triamcinolone (KENALOG-40) injection 40 mg 40 mg, EPIDURAL, ONCE, On Fri05/30/23 at 1530, For 1 dose $Given 05/30/2023 3:25 PM CDT 40 mg documented in this encounter Additional Health Concerns Assessment Noted Time PHQ-9 Depression Total Score: 6 11/19/20 22 2:05 PM PROOF CLERK documented as of this encounter Care Teams [facility] Owner Relationship Specialty Start Date End Date Craey Vuong MD [address] [facility] [place] [address] PCP - General 01/15/02 Mehreen Scott MD [address] [facility] [address] [place] [address] rn assessment 12/15/19 Carey Vuong MD [address] [facility] [place] [address] Assigned PCP 02/22/21 Prema Hitchcock PA-C [address] [facility] [place] [address] Assigned Surgical Provider 11/04/21 Chidi Puckett MD [address] [facility] [address] [place] [address] Assigned Sleep Provider 02/17/22 10/31/23 Harriet Lindsay Personal Advocate & Liaison (PAL) 06/17/22 Aisha Murdock PA-C [facility] [address] [facility] [place] [address] Assigned Neuroscience Provider 06/08/22 11/28/23 Lavern Pope MD [address] [place] [address] Cardiovascular Disease 11/11/22 Lavern Pope MD [address] [place] [id number] Assigned Heart and Vascular Provider 11/16/22 Elmer Paul MD [address] [place] [id number] Allergy & Immunology 02/17/23 Elmer Paul MD [address] [place] [id number] Assigned Allergy Provider 04/26/23 documented as of this encounter
--- OUTSIDE RECORDS SUMMARY | 2023-12-29 23:12 | XMS_ITS | Encounter Summary ---
Author Name Unknown Organization [place] Address [address] [place] [address] Care Team Providers Care S[facility] F[facility] Manager Name Role Phone Carey Vuong MD Primary Care Provider [phone] Mehreen Scott MD Unavailable [phone] Carey Vuong MD Unavailable Prema Hitchcock PA-C Unavailable [phone] Chidi Puckett MD Unavai lable Harriet Lindsay Unavailable Unavailable Aisha Murdock PA-C Unavailable [phone] Lavern Pope MD Unavailable [phone] Lavern Pope MD Unavailable [phone] Elmer Paul MD Unavailable [phone] Elmer Paul MD Unavailable [phone] Encounter Details Date Type Department Care Team (Late st Contact Info) Description 06/11/2023 [facility] [address] [place] [phone] Elmre Paul MD [address] [facility] [address] [place] [address] Social History Tobacco Use Types Packs/Day Years [...] How often do you attend chur or moravian services? More than 4 times [...] Answer Date Recorded PHQ-2 Score 1 11/19/2022 [facility] of Occupat ional Health - Occupational Stress [...] Assigned at Female 12/12/2019 6:30 PM CHURN OPERATOR Gender Identity Female 12/12/2019 6:30 PM CHURN OPERATOR Sexual Orientation Straight 04/04/2021 12 :18 PM CDT Travel History Travel Start Travel End [place] 12/06/2023 12/12/2023 COVID-19 Exposure Response Date Recorded In the last 10 days, have yo u been in contact with someone who was confirmed or suspected to have Coronavirus/COVID-19? No / Unsure 06/26/2023 8:56 AM CDT documented as of this encounter Miscellaneous Notes * Telephone Encounter - Arelis Chavez - 06/11/2023 10:38 AM CDT LVM for PT to call [phone] to schedule f/u appt with Dr. Paul for Abhi. documented in this encounter Plan of Treatment Upcoming Encounters Date Type Department Care Team (Late st Contact Info) Description 03/19/2024 3:30 PM CDT Office Visit [facility] [place] [address] [facility] [address] [place] [phone] Elmer Paul MD [address] [facility] [address] [place] [id number] 04/16/2024 8:30 AM CDT Lab [facility] [address] [facility] [address] [place] [phone] 04/20/2024 8:45 AM CDT Office Visit [facility] [address] [facility] [address] [place] [phone] Lavern Pope MD [address] [facility] [address] [place] [id number] documented as of this encounter Visit Diagnoses Not on filedocumented in this encounter Additional Health Concerns Assessment Noted Time PHQ-9 Depression Total Score: 6 11/19/20 22 2:05 PM CHURN OPERATOR documented as of this encounter Care Teams Soda Fountain Manager Relationship Specialty Start Date End Date Carey Vuong MD [address] [place] [address] [place] [address] PCP - General 01/15/02 Mehreen Scott MD [address] [place] [phone] pipe line gauger 12/15/19 Carey Vuong MD [address] [facility] [place] [address] Assigned PCP 02/22/21 Prema Hitchcock PA-C [address] [facility] [place] [address] Assigned Surgical Provider 11/04/21 Chidi Puckett MD [address] [place] [address] Assigned Sleep Provider 02/17/22 10/31/23 Harriet Lindsay Personal Advocate & Liaison (PAL) 06/17/22 Aisha Murdock PA-C [facility] [address] [facility] [place] [address] Assigned Neuroscience Provider 06/08/22 11/28/23 Lavern Pope MD [address] [facility] [address] [facility] [address] [place] [address] Cardiovascular Disease 11/11/22 Lavern Pope MD [address] [facility] [address] [facility] [address] [place], [place] [address] Assigned Heart and Vascular Provider 11/16/22 Elmer Paul MD [address] [place], [place] [address] Allergy & Immunology 02/17/23 Elmer Paul MD [address] [place], [place] [id number] Assigned Allergy Provider 04/26/23 documented as of this encounter
--- OUTSIDE RECORDS SUMMARY | 2023-12-29 23:12 | XMS_ITS | Encounter Summary ---
Author Name Unknown Organization [facility] Address [address] [place] [address] Care Team Providers Care Electronics System Mechanic Name Role Phone Carey Vuong MD Primary Care Provider [phone] Mehreen Scott MD Unavailable [phone] Carey Vuong MD Unavailable Prema Hitchcock PA-C Unavailable [phone] Chidi Puckett MD Unavai lable Harriet Lindsay Unavailable Unavailable Aisha Murdock PA-C Unavailable [phone] Lavern Pope MD Unavailable [phone] Lavern Pope MD Unavailable [phone] Elmer Paul MD Unavailable [phone] Elmer Paul MD Unavailable [phone] Reason for Visit * Reason Onset Date Comments Procedure 05/27/2023 L4-5 [place] OLIVIA Encounter Details Date Type Department Care Team (Late st Contact Info) Description 05/27/2023 [facility]phone [facility] [address] [place] [address] [facility] ( L4-5 [place] OLIVIA ) Social History Tobacco Use [...] do you attend [facility] or sikh services? More than 4 times per year 06/17/2022 Do you belong to any clubs o r organizations such as sabianism groups, unions, fraternal or athletic groups, or [...] Answer Date Recorded PHQ-2 Score 1 11/19/2022 [facility] [place] of Occupat ional Health - Occupational Stress [...] Sex Assigned at Female 12/12/2019 6:30 PM SODA FOUNTAIN OPERATOR Gender Identity Female 12/12/2019 6:30 PM SODA FOUNTAIN OPERATOR Sexual Orientation Straight 04/04/2021 12 :18 PM CDT Travel History Travel Start Travel End [place] 12/06/2023 12/12/2023 COVID-19 Exposure Response Date Recorded In the last 10 days, have yo u been in contact with someone who was confirmed or suspected to have Coronavirus/COVID-19? No / Unsure 05/26/2023 12:40 PM CDT documented as of this encounter Miscellaneous Notes * Telephone Encounter - Jessica Ackerman - 05/27/2023 12:13 PM CDT Screening Questions for Radiology Injections: Injection to be done at which interventional clinic site? [facility] Procedure ordered by Cy Procedure ordered? L4-5 [place] OLIV[place] ??? Transforaminal Cervical OLIVIA - Send to [facility] - No [facility] Site providers perform this procedure What insurance would patient like us to bill for this procedure? [facility] ?? IF SCHEDULING IN ALTO PASS PAIN OR SPINE PLEASE SCHEDULE AT LEAST 7-10 BUSINESS DAYS OUT SO A PACAN BE OBTAINED ?? Worker's comp or MVA (motor vehicle accident) -Any injection DO NOT SCHEDULE and route to Jessica Ackerman. ?? [facility] insurance - For SI joint injections, DO NOT SCHEDULE and route to Mary Monroe. ?? ALL BCBS, [employer] and [employer] CIGNA - DO NOT SCHEDULE and route to Mary Monroe ?? MEDICA- facet joint injections, route to Mary Monroe Is patient scheduled at [facility]? no If YES, route every encounter to [facility] CARE NAVIGATION POOL [[phone]] Is an energy management specialist needed? 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 (Review Grid) YES: ok Any chance of ? NO If YES, do NOT schedule and route to warp spooler - Dr. Price route to Michelle Shepherd and PM&R Nurse [[id number]] Is patient actively being treated for cancer or immunocompromised? No If YES, do NOT schedule and route to warp spooler/ Dr. Price's Team Does the patient have a bleeding or clotting disorder? No ?? If YES, okay to schedule AND route to RN nurse rocael/ Dr. Price's Team ?? (For any patients with platelet count <100, RN must forward to provider) Is patient taking any Blood Thinners OR Antiplatelet medication? No If hold needed, do NOT schedule, route to warp spooler/ Dr. Price's Team ??? Examples: o Blood Thinners: (Coumadin, Warfarin, Jantoven, Pradaxa, Xarelto, Eliquis, Edoxaban, Enoxaparin, Lovenox, Heparin, Arixtra, Fondaparinux or Fragmin) o Antiplatelet Medications: (Plavix, Brilinta or Effient) Is patient taking any aspirin products (includes Excedrin and Fiorinal)? No ?? If more than 325mg/day, OK to schedule; Instruct Pt to decrease to less than 325 mg for 7 days AND route to warp spooler/ Dr. Price's Team ?? For CERVICAL procedures, [...] NOT SCHEDULE, route to R[facility] c[place]/ Dr. Bryatns Team ??? Allergies: Penicillins Does patient have [...] Team Does patient have an MRI/CT? YES: mri Include Date and Check Procedure Scheduling Grid to see if required. ?? Was the MRI/CT done within the last 3 years? Yes ?? If no route to [facility]/ Dr. Bryants Team ?? If yes, where was the MRI/CT done? [facility] ?? Refer to PACS Transmissions list for approved external locations and route to [facility] High Priority/ Dr. Price's Team ?? If MRI was not done [...] schedule and route to [facility] [place]/ Dr. Bryants Team Procedure Specific Instructions: ??? If celiac [...] NOT schedule at 0745, 0815 or 1245. ok ?? Instructed patient to arrive 30 minutes [...] glucometer. Does the patient have any questions? No Jessica Ackerman [facility] documented in this encounter Plan of Treatment Upcoming Encounters Date Type Department Care Team (Late st Contact Info) Description 03/19/2024 3:30 PM CDT Office Visit [facility] Specialty [address] [place] [phone] Elmer Paul MD [address] , [address] [place] [address] 04/16/2024 8:30 AM CDT Lab [facility] Heart [address] [place] [phone] 04/20/2024 8:45 AM CDT Office Visit [facility] Heart [facility] [address] [facility] [address] [place] [phone] Lavern Pope MD [address] [facility] [address] [place] [id number] documented as of this encounter Visit Diagnoses Not on filedocumented in this encounter Additional Health Concerns Assessment Noted Time PHQ-9 Depression Total Score: 6 11/19/20 22 2:05 PM SODA FOUNTAIN OPERATOR documented as of this encounter Care Teams Electronics System Mechanic Relationship Specialty [place] [address] [place] [address] [place] [address] PCP - General 01/15/02 Mehreen Scott MD [address] [address] [place] [address] plastic installer 12/15/19 [place] [address] [place] [address] [place] [address] Assigned PCP 02/22/21 Prema Hitchcock PA-C [address] [place] [address] Assigned Surgical Provider 11/04/21 Chidi Puckett MD [address] [facility] [address] [place] [address] Assigned Sleep Provider 02/17/22 10/31/23 Harriet Lindsay Personal Advocate & Liaison (PAL) 06/17/22 Aisha [facility] PA-C [facility] [address] [place] [address] Assigned Neuroscience Provider 06/08/22 11/28/23 Lavern Pope MD [address] [place] [address] Cardiovascular Disease 11/11/22 Lavern Pope MD [address] [place] [address] Assigned Heart and Vascular Provider 11/16/22 Elmer Paul MD [address] [place] [address] Allergy & Immunology 02/17/23 Elmer Paul MD [address] [place] [address] Assigned Allergy Provider 04/26/23 documented as of this encounter
--- OUTSIDE RECORDS SUMMARY | 2023-12-29 23:12 | XMS_ITS | Encounter Summary ---
Author Name Unknown Organization [facility] Address [address] [place] [address] Care Team Providers Care Operations Intelligence Name Role Phone Carey Vuong MD Primary Care Provider Mehreen Scott MD Unavailable [phone] Carey Vuong MD Unavailable [phone] Prema Hitchcock PA-C Unavailable [phone] Chidi Puckett MD Unavai lable Harriet Lindsay Unavailable Unavailable Aisha Murdock PA-C Unavailable [phone] Lavern Pope MD Unavailable [phone] Lavern Pope MD Unavailable [phone] Elmer Paul MD Unavailable [phone] Elmer Paul MD Unavailable [phone] Encounter Details Date Type Department Care Team (Latest Contact Info) Description 05/09/2023 Travel Social History Tobacco Use Types Packs/Day Years Used Date Smoking Tobacco: Some Days Cigarettes 0 10 Cigars Smokeless Tobacco: Never Comments:smokes a single cig [...] How often do you attend [facility] or jain services? More than 4 times per year 06/17/2022 Do you belong to any clubs o r organizations such as anglican groups, unions, fraternal or athletic groups, or [...] Answer Date Recorded PHQ-2 Score 1 11/19/2022 [facility] of Occupat ionok Health - Occupational Stress Questionnaire Answer Date [...] Sex Assigned at Female 12/12/2019 6:30 PM ESTATE PLANNING DIRECTOR Gender Identity Female 12/12/2019 6:30 PM ESTATE PLANNING DIRECTOR Sexual Orientation Straight 04/04/2021 12 :18 PM CDT Travel History Travel Start Travel End [place] 12/06/2023 12/12/2023 COVID-19 Exposure Response Date Recorded In the last 10 days, have yo u been in contact with someone who was confirmed or suspected to have Coronavirus/COVID-19? No / Unsure 05/09/2023 1:18 PM CDT documented as of this encounter Plan of Treatment Upcoming Encounters Date Type Department Care Team (Late st Contact Info) Description 03/19/2024 3:30 PM CDT Office Visit [facility] [place] [address] [facility] [address] [place] [phone] Elmer Paul MD [address] , [address] [place] [address] 04/16/2024 8:30 AM CDT Lab [facility] Heart [place] [address] [facility] [address] [place] [address] 04/20/2024 8:45 AM CDT Office Visit [facility] [place] [address] [facility] [address] [place] [phone] Lavern Pope MD [address] [facility] [address] [place] [address] documented as of this encounter Visit Diagnoses Not on filedocumented in this encounter Additional Health Concerns Assessment Noted Time PHQ-9 Depression Total Score: 6 11/19/20 22 2:05 PM ESTATE PLANNING DIRECTOR documented as of this encounter Care Teams Operations Intelligence Relationship Specialty Start Date End Date Carey Vuong MD [address] [facility] [place] [address] PCP - General 01/15/02 Mehreen Scott MD [address] [place] [phone] load tester 12/15/19 Carey Vuong MD [address] [facility] [place] [address] Assigned PCP 02/22/21 Prema Hitchcock PA-C [address] [place] [address] Assigned Surgical Provider 11/04/21 Chidi Puckett MD [address] [place] [address] Assigned Sleep Provider 02/17/22 10/31/23 Harriet Lindsay Personal Advocate & Liaison (PAL) 06/17/22 Aisha Murdock PA-C [facility] [address] [place] [address] Assigned Neuroscience Provider 06/08/22 11/28/23 Lavern Pope MD [address] [facility] [address] [place], [place] [address] Cardiovascular Disease 11/11/22 Lavern Pope MD [address] [facility] [address] [place] [address] Assigned Heart and Vascular Provider 11/16/22 Elmer Paul MD [address] [place] [address] Allergy & Immunology 02/17/23 Elmer Paul MD [address], [address] [place] [address] Assigned Allergy Provider 04/26/23 documented as of this encounter
--- OUTSIDE RECORDS SUMMARY | 2023-12-29 23:12 | XMS_ITS | Encounter Summary ---
Author Name Unknown Organization [facility] Address [address] [place] [address] Care Team Providers Care Media Marketing Director Name Role Phone Carey Vuong MD Primary Care Provider [phone] Mehreen Scott MD Unavailable [phone] Carey Vuong MD Unavailable [phone] Prema Hitchcock PA-C Unavailable [phone] Chidi Puckett MD Unavai lable Harriet Lindsay Unavailable Unavailable Aisha Murdock PA-C Unavailable [phone] Lavern Pope MD Unavailable [phone] Lavern Pope MD Unavailable [phone] Elmer Paul MD Unavailable [phone] Elmer Paul MD Unavailable [phone] Reason for Visit * Reason Comments Allergy Recheck Encounter Details Date Type Department Care Team (Late st Contact Info) Description 06/10/2023 4:00 PM CDT Office Visit [address] [phone] Elmer Paul MD [address], [address] [place] [address] Mild persistent asthma with acute exacerbation (Primary Dx); Allergic rhinitis due to animal (cat) (dog) hair and dander Social History Tobacco Use Types Packs/Day Years Used Date Smoking Tobacco: Former Cigarettes 0 10 Cigars Quit: 12/01/19 23 Smokeless Tobacco: Never Tobacco Cessation:Counseling Given: Not [...] week 06/17/2022 How often do you attend [facility] or yazdanism services? More than 4 times per year 06/17/2022 Do you belong to any clubs o r organizations such as episcopal groups, unions, fraternal or athletic groups, or [...] Answer Date Recorded PHQ-2 Score 1 11/19/2022 [facility] of Occupat ional Health - Occupational Stress [...] to sleep or slept in a senior care (including now)? No 06/17/2022 Education Answer Date Recorded What is the highest level of school you have completed or the highest degree you have received? Some college, no degree 12/12/2019 Sex and Gender Information Value Date Recorded Sex Assigned at Female 12/12/2019 6:30 PM PAPERHANGER ASSISTANT Gender Identity Female 12/12/2019 6:30 PM PAPERHANGER ASSISTANT Sexual Orientation Straight 04/04/2021 12 :18 PM CDT Travel History Travel Start Travel End [place] 12/06/2023 12/12/2023 COVID-19 Exposure Response Date Recorded In the last 10 days, have yo u been in contact with someone who was confirmed or suspected to have Coronavirus/COVID-19? No / Unsure 06/10/2023 3:50 PM CDT documented as of this encounter Last Filed Vital Signs Vital Sign Reading Time Taken Comments Blood Pressure 105/73 06/10/2023 4:01 PM CDT Pulse 66 06/10/2023 4:01 PM CDT Temperature - - Respiratory Rate - - Oxygen Saturation 99% 06/10/2023 4:01 PM CDT Inhaled Oxygen Concentration - - Weight 97.7 kg (215 lb 6.4 oz) 06/10/2023 4:01 P M CDT Height - - Body Mass Index 34.77 12/13/2022 7:47 AM PAPERHANGER ASSISTANT documented in this encounter Patient Instructions * Patient Instructions* Elmer Paul MD - 06/10/2023 4:00 PM CDT Flonase Sensimist (Flonase) - 1-2 sprays each nostril daily Xyzal 5 mg daily Airduo (Fluticasone/Salmeterol) 1 puff twice daily (at this time, use Arnuity 1 puff daily to use this inhaler up, may use Airduo also if needed). Albuterol 2 puffs every 4 hours as needed Follow up in 6 months documented in this encounter Progress Notes * Elmer Paul MD - 06/10/2023 4:00 PM CDT Danielle Gazra was seen in the Allergy Clinic at [facility]. Danielle Garza is a 47 year old female being seen today for ongoing evaluation of asthma as well as allergic rhinitis to dog and cat. She does have dogs at home. Since the last visit the patient has been good. She has noted significant improvement after using Xyzal 5 mg with Flonase 2 sprays each nostril daily. Also the switch from Arnuity to AirDuo 1 puff daily. It was recommended to take it twice daily but she is only actually taking it once daily and has noticed some improvement over Arnuity. This is the best she is felt in all of her life from what she can remember. Spirometry was recently normal. Past Medical History: Diagnosis Date ??? Asthma ??? Cervical endometriosis ??? Depression ??? History of supraventricular tachycardia s/p ablation ??? Irregular heart beat ??? Mild intermittent asthma ??? Overactive bladder ??? Pain in joint, lower leg 12 knee surgeries ??? Palpitations ??? Urinary incontinence Family History Problem Relation Age of Onset ??? Neurologic Disorder Mother migraine ??? Diabetes Father ??? Diabetes Brother ??? Diabetes Maternal Grandmother ??? Cardiovascular Paternal Grandmother ??? Cerebrovascular Disease Paternal Grandfather ??? Diabetes Paternal Grandfather Past Surgical History: Procedure Laterality Date ??? ABDOMEN SURGERY abdominal plasty ??? ARTHROSCOPY KNEE 06/29/2012 Procedure: ARTHROSCOPY KNEE; Left Knee Arthroscopy and Drilling ; Surgeon: Cecilio Miller MD; Location: [facility] OR ? ? C ANALGESIA,EPIDURAL,LABOR & 1997,2001 ??? CL AFF SURGICAL PATHOLOGY 01/09 ??? ESOPHAGOSCOPY, GASTROSCOPY, DUODENOSCOPY (EGD), COMBINED N/A 08/19/2014 Procedure: COMBINED ESOPHAGOSCOPY, GASTROSCOPY, DUODENOSCOPY (EGD); Surgeon: Deandre Allen DO; Location: [facility] GI ??? GATEHOUSE ATTENDANT SURGERY ??? THORACIC SURGERY ablation ??? ZZC NONSPECIFIC PROCEDURE Right knee ALESSANDRA reconstruction x 2 - cartilage damage ??? ZZC NONSPECIFIC PROCEDURE T&A ??? ZZC NONSPECIFIC PROCEDURE PET x 8 sets ??? ZZC NONSPECIFIC PROCEDURE multiple (11) arthroscopic knee surgeries Current Outpatient Medications: ??? albuterol (PROAIR HFA/PROVENTIL HFA/VENTOLIN HFA) 108 (90 Base) MCG/ACT inhaler, INHALE 2 PUFFSBY MOUTH EVERY 6 HOURS, Disp: 18 g, Rfl: 1 ??? atorvastatin (LIPITOR) 20 MG tablet, Take 1 tablet (20 mg) by mouth daily, Disp: 30 tablet, Rfl: 11 ??? buPROPion (WELLBUTRIN XL) 300 MG 24 hr tablet, Take 1 tablet (300 mg) by mouth every morning, Disp: 90 tablet, Rfl: 3 ??? citalopram (CELEXA) 40 MG tablet, Take 1 tablet (40 mg) by mouth daily, Disp: 90 tablet, Rfl: 3 ??? fish oil-omega-3 fatty acids 1000 MG capsule, Take 1 capsule by mouth daily With sparkle in themorning, Disp: , Rfl: ??? fluticasone (FLONASE) 50 MCG/ACT nasal spray, Nesmith 1 spray into both nostrils daily, Disp: , Rfl: ??? fluticasone-salmeterol (AIRDUO RESPICLICK) 113-14 MCG/ACT inhaler, Inhale 1 puff into the lungs2 times daily, Disp: 1 each, Rfl: 4 ??? ibuprofen (ADVIL/MOTRIN) 400 MG tablet, Take 400 mg by mouth every 6 hours as needed, Disp: , Rfl: ??? levocetirizine (XYZAL) 5 MG tablet, Take 5 mg by mouth every evening, Disp: , Rfl: ??? methocarbamol (ROBAXIN) 500 MG tablet, Take 1-2 tablets (500-1,000 mg) by mouth 3 times daily as needed for muscle spasms, Disp: 60 tablet, Rfl: 3 ??? Multiple Vitamin (MULTI-VITAMIN) per tablet, Take 1 tablet by mouth daily. , Disp: , Rfl: ??? norethindrone (AYGESTIN) 5 MG tablet, Take 5 mg by mouth daily, Disp: , Rfl: ??? omeprazole (PRILOSEC) [address] capsule, Take 1 capsule (40 mg) by mouth daily, Disp: 90 capsule, Rfl: 4 ??? triamcinolone (KENALOG) 0.1 % external cream, Apply topically 2 times daily as needed for irritation (up to 1 week at a time.), Disp: 15 g, Rfl: 3 ??? fluticasone (ARNUITY ELLIPTA) 100 MCG/ACT inhaler, Inhale 1 puff into the lungs daily (Patient not taking: Reported on 04/22/2023), Disp: 30 each, Rfl: 4 ??? ipratropium (ATROVENT) 0.06 % nasal spray, Nesmith 2 sprays into both nostrils 4 times daily (Patient not taking: Reported on 06/10/2023), Disp: 15 mL, Rfl: 10 ??? promethazine (PHENERGAN) 12.5 MG tablet, , Disp: , Rfl: Allergies Allergen Reactions ??? Penicillins Itching EXAM: BP 105/73 Pulse 66 Wt 97.7 kg (215 lb 6.4 oz) SpO2 99% BMI 34.77 kg/m?? Constitutional: General: She is not in acute distress. Appearance: Normal appearance. She is not ill-appearing. HENT: Head: Normocephalic and atraumatic. Mouth/Throat: Mouth: Mucous membranes are moist. Pharynx: Oropharynx is clear. No posterior oropharyngeal erythema. Eyes: General: Right eye: No discharge. Left [...] Behavior normal. ASSESSMENT/PLAN: Danielle Garza is a 47 year old female seen today for evaluation of asthma as well as allergic rhinitis. She does have a cat and dog allergy and does have dogs at home. Overall she is finding that the medication regimen of Xyzal, Flonase and AirDuo to be quite effective. This is the best she has felt in all of her life from what she recalls. 1. Flonase Sensimist (Flonase) - 1-2 sprays each nostril daily 2. Xyzal 5 mg daily 3. Airduo (Fluticasone/Salmeterol) 1 puff twice daily (at this time, use Arnuity 1 puff daily to use this inhaler up, may use Airduo also if needed). 4. Albuterol 2 puffs every 4 hours as needed 5. Follow up in 6 months 6. May consider an oral challenge to penicillin in the future. Follow-up in 6 months Thank you for allowing me to participate in the care of Danielle Garza. I spent 20 minutes on the date of the encounter doing chart review, history and exam, documentationand further coordination as noted above exclusive of separately reported interpretations Elmer Paul MD Allergy/Immunology [facility] documented in this encounter Plan of Treatment Upcoming Encounters Date Type Department Care Team (Late st Contact Info) Description 03/19/2024 3:30 PM CDT Office Visit [facility] [place] [address] [facility] [address] [place] [phone] Elmer Paul MD [address] [facility] [place] [facility] [address] [place] [address] 04/16/2024 8:30 AM CDT Lab [facility] Heart [facility] [address] [facility] [address] [place] [phone] 04/20/2024 8:45 AM CDT Office Visit [facility] [address] [facility] [address] [place] [phone] Lavern Pope MD [address] [facility] [address] [place] [id number] documented as of this encounter Visit Diagnoses Diagnosis Mild persistent asthma with acute exacerbation- Primary Unspecified asthma, with exacerbation Allergic rhinitis due to animal (cat) (dog) hair and dander documented in this encounter Additional Health Concerns Assessment Noted Time PHQ-9 Depression Total Score: 6 11/19/20 22 2:05 PM PAPERHANGER ASSISTANT documented as of this encounter Care Teams Media Marketing Director Relationship Specialty Start Date End Date Carey Vuong MD [address] [place] [address] [place] [address] PCP - General 01/15/02 Mehreen Scott MD [address] [place] [phone] receivable clerk 12/15/19 Carey Vuong MD [address] [place] [address] [place] [address] Assigned PCP 02/22/21 Prema Hitchcock PA-C [address] [place] [address] Assigned Surgical Provider 11/04/21 Chidi Puckett MD [address] [place], [place] [address] Assigned Sleep Provider 02/17/22 10/31/23 Harriet Lindsay Personal Advocate & Liaison (PAL) 06/17/22 Aisha Murdock PA-C [facility] [address] [place] [address] Assigned Neuroscience Provider 06/08/22 11/28/23 Lavern Pope MD [address] [place] [address] Cardiovascular Disease 11/11/22 Lavern Pope MD [address] [place] [address] Assigned Heart and Vascular Provider 11/16/22 Elmer Paul MD [address] [place] [address] Allergy & Immunology 02/17/23 Elmer Paul MD [address] [place] [address] Assigned Allergy Provider 04/26/23 documented as of this encounter
--- OUTSIDE RECORDS SUMMARY | 2023-12-29 23:12 | XMS_ITS | Encounter Summary ---
Author Name Unknown Organization [place] Address [address] [place] [address] Care Team Providers Care Customer Service Attendant Name Role Phone Carey Vuong MD Primary Care Provider [phone] Mehreen Scott MD Unavailable [phone] Carey Vuong MD Unavailable [phone] Prema Hitchcock PA-C Unavailable [phone] Chidi Puckett MD Unavai lable Harriet Lindsay Unavailable Unavailable Aisha Murdock PA-C Unavailable [phone] Lavern Pope MD Unavailable [phone] Lavern Pope MD Unavailable [phone] Elmer Paul MD Unavailable [phone] Elmer Paul MD Unavailable [phone] Encounter Details Date Type Department Care Team (Latest Contact Info) Description 06/16/2023 Travel Social History Tobacco Use Types Packs/Day [...] week 06/17/2022 How often do you attend [facility] or hindu services? More than 4 times per year 06/17/2022 Do you belong to any clubs o r organizations such as latter-day groups, unions, fraternal or athletic groups, or [...] [facility]ational Stress Questionnaire Answer Date [...] Sex Assigned at Female 12/12/2019 6:30 PM WATER FABRICATOR OPERATOR Gender Identity Female 12/12/2019 6:30 PM WATER FABRICATOR OPERATOR Sexual Orientation Straight 04/04/2021 12 :18 PM CDT Travel History Travel Start Travel End [place] 12/06/2023 12/12/2023 COVID-19 Exposure Response Date Recorded In the last 10 days, have yo u been in contact with someone who was confirmed or suspected to have Coronavirus/COVID-19? Unable to assess 06/16/2023 12:28 PM CDT documented as of this encounter Plan of Treatment Upcoming Encounters Date Type Department Care Team (Late st Contact Info) Description 03/19/2024 3:30 PM CDT Office Visit [facility] [address] [place] [address] [address] [place] [address] Elmer Paul MD [address], [address] [place] [address] 04/16/2024 8:30 AM CDT Lab M [facility] [address] [facility] [address] [place] [phone] 04/20/2024 8:45 AM CDT Office Visit [facility] [place] [address] [facility] [address] [place] [phone] Lavern Pope MD [address] [facility] [address] [place] [address] documented as of this encounter Visit Diagnoses Not on filedocumented in this encounter Additional Health Concerns Assessment Noted Time PHQ-9 Depression Total Score: 6 11/19/20 22 2:05 PM WATER FABRICATOR OPERATOR documented as of this encounter Care Teams Customer Service Attendant Relationship Specialty Start Date End Date Carey Vuong MD [address] [facility] [place] [address] PCP - General 01/15/02 Mehreen Scott MD [address] [place] [phone] qa test analyst 12/15/19 Carey Vuong MD [address] [facility] [place] [address] Assigned PCP 02/22/21 Prema Hitchcock PA-C [address] [facility] [place] [address] Assigned Surgical Provider 11/04/21 Chidi Puckett MD [address] [place], [place] [address] Assigned Sleep Provider 02/17/22 10/31/23 Harriet Lindsay Personal Advocate & Liaison (PAL) 06/17/22 Aisha Murdock PA-C [facility] [address] [place] [address] Assigned Neuroscience Provider 06/08/22 11/28/23 Lavern Pope MD [address] [facility] [address] [place] [address] Cardiovascular Disease 11/11/22 Lavern Pope MD [address] [facility] [address] [place] [address] Assigned Heart and Vascular Provider 11/16/22 Elmer Paul MD [address], [address] [place], [place] [address] Allergy & Immunology 02/17/23 Elmer Paul MD [address], [address] [place], [place] [address] Assigned Allergy Provider 04/26/23 documented as of this encounter
--- OUTSIDE RECORDS SUMMARY | 2023-12-29 23:12 | XMS_ITS | Encounter Summary ---
Author Name Unknown Organization [place] Address [address] [place] [address] Care Team Providers Care Director Informatics Name Role Phone Carey Vuong MD Primary Care Provider [phone] Mehreen Scott MD Unavailable [phone] Carey Vuong MD Unavailable Prema Hitchcock PA-C Unavailable [phone] Chidi Puckett MD Unavai lable Harriet Lindsay Unavailable Unavailable Aisha Murdock PA-C Unavailable [phone] Lavern Pope MD Unavailable [phone] Lavern Pope MD Unavailable [phone] Elmer Paul MD Unavailable [phone] Elmer Paul MD Unavailable [phone] Reason for Visit * Reason Onset Date Comments Refill Request 05/13/2023 topiramate (TOPA MAX) 25 MG tablet Encounter Details Date Type Department Care Team (Late st Contact Info) Description [facility] [address] [place], [place] [address] Marlene Benoit, PASTING MACHINE OPERATOR [address] [place] [id number] Refill Request (topiramate (TOPAMAX) 25 MG tablet) Social History Tobacco Use Types [...] How often do you attend [facility] or christian services? More than 4 times [...] Answer Date Recorded PHQ-2 Score 1 11/19/2022 [facility] [place] of Occupat ional Health - Occupational Stress [...] place to sleep or slept in a [place] health care facility (including now)? No 06/17/2022 Education Answer Date Recorded What is the highest level of school you have completed or the highest degree you have received? Some college, no degree 12/12/2019 Sex and Gender Information Value Date Recorded Sex Assigned at Female 12/12/2019 6:30 PM FLOOR FINISHER Gender Identity Female 12/12/2019 6:30 PM FLOOR FINISHER Sexual Orientation Straight 04/04/2021 12 :18 PM CDT Travel History Travel Start Travel End [place] 12/06/2023 12/12/2023 COVID-19 Exposure Response Date Recorded In the last 10 days, have yo u been in contact with someone who was confirmed or suspected to have Coronavirus/COVID-19? No / Unsure 05/09/2023 1:18 PM CDT documented as of this encounter Miscellaneous Notes * Telephone Encounter - Jocelyne Arango CMA - 05/13/2023 3:10 PM CDT Received fax from pharmacy requesting refill(s) for topiramate (TOPAMAX) 25 MG tablet Last refilled on 04/20/23 Pt last seen on 01/30/23 Next appt scheduled for none E-prescribe to: [id number] - [place], [place] - [address] [facility] [address] Will facilitate refill. documented in this encounter Plan of Treatment Upcoming Encounters Date Type Department Care Team (Late st Contact Info) Description 03/19/2024 3:30 PM CDT Office Visit [facility] [address] [facility] 200 [place] [address] Elmer Paul MD [address] [facility] 200 [place] [address] 04/16/2024 8:30 AM CDT Lab [facility] [address] [facility] [address] [place] [phone] 04/20/2024 8:45 AM CDT Office [facility] [address] [facility] [address] [place] [address] Lavern Pope MD [address] [facility] [address] [place] [address] documented as of this encounter Visit Diagnoses Diagnosis Neck pain Cervicalgia documented in this encounter Additional Health Concerns Assessment Noted Time PHQ-9 Depression Total Score: 6 11/19/20 22 2:05 PM FLOOR FINISHER documented as of this encounter Care Teams Director Informatics Relationship Specialty Start Date End Date Carey Vuong MD [address] [place] [address] [place] [address] PCP - General 01/15/02 Mehreen Scott MD [address] [facility] 100 [place] [phone] paste up copy camera operator 12/15/19 Carey Vuong MD [address] [facility] [address] Assigned PCP 02/22/21 Prema Hitchcock PA-C [address] [facility] [place] [id number] Assigned Surgical Provider 11/04/21 Chidi Puckett MD [address] [facility] 106 [place], [place] [address] Assigned Sleep Provider 02/17/22 10/31/23 Harriet Lindsay Personal Advocate & Liaison (PAL) 06/17/22 Aisha Murdock PA-C [facility] [address] [facility] [place] [id number] Assigned Neuroscience Provider 06/08/22 11/28/23 Lavern Pope MD [address] [place], [place] [address] Cardiovascular Disease 11/11/22 Lavern Pope MD [address] [facility] [address] [place] [address] Assigned Heart and Vascular Provider 11/16/22 Elmer Paul MD [address], [address] [place] [address] MD Allergy & Immunology 02/17/23 Elmer Paul MD [address], [address] [place] [address] Assigned Allergy Provider 04/26/23 documented as of this encounter
--- OUTSIDE RECORDS SUMMARY | 2023-12-29 23:12 | XMS_ITS | Encounter Summary ---
Author Name Unknown Organization [place] Address [address] [place] [address] Care Team Providers Care Entry Examiner Name Role Phone Carey Vuong MD Primary Care Provider [phone] Mehreen Scott MD Unavailable [phone] Carey Vuong MD Unavailable [phone] Prema Hitchcock PA-C Unavailable [phone] Chidi Puckett MD Unavai lable Harriet Lindsay Unavailable Unavailable Aisha Murdock PA-C Unavailable [phone] Lavern Pope MD Unavailable [phone] Lavern Pope MD Unavailable [phone] Elmer Paul MD Unavailable [phone] Elmer Paul MD Unavailable [phone] Encounter Details Date Type Department Care Team (Latest Contact Info) Description 06/10/2023 Travel Social History Tobacco Use Types Packs/Day [...] often do you attend [facility] or caodaism services? More than 4 times [...] Answer Date Recorded PHQ-2 Score 1 11/19/2022 [facility] - Occupational Stress Questionnaire Answer Date [...] a group home (including now)? No 06/17/2022 Education Answer Date Recorded What is the highest level of school you have completed or the highest degree you have received? Some college, no degree 12/12/2019 Sex and Gender Information Value Date Recorded Sex Assigned at Female 12/12/2019 6:30 PM ADMINISTRATIVE SUPPORT SPECIALIST Gender Identity Female 12/12/2019 6:30 PM ADMINISTRATIVE SUPPORT SPECIALIST Sexual Orientation Straight 04/04/2021 12 :18 [...] Description 03/19/2024 3:30 PM CDT Office Visit [facility] [address] [place] [address] Elmer Paul MD [address], [address] [place] [address] 04/16/2024 8:30 AM CDT Lab M [facility] [address] [facility] [address] [place] [phone] 04/20/2024 8:45 AM CDT Office Visit [facility] [place] [address] [facility] [address] [place] [phone] Lavern Pope MD [address] [facility] [address] [place] [address] documented as of this encounter Visit Diagnoses Not on filedocumented in this encounter Additional Health Concerns Assessment Noted Time PHQ-9 Depression Total Score: 6 11/19/20 22 2:05 PM ADMINISTRATIVE SUPPORT SPECIALIST documented as of this encounter Care Teams Entry Examiner Relationship Specialty Start Date End Date Carey Vuong MD [address] [facility] [place] [address] PCP - General 01/15/02 Mehreen Scott MD [address] [place] [phone] loss prevention representative 12/15/19 Carey Vuong MD [address] [facility] [place] [address] Assigned PCP 02/22/21 Prema Hitchcock PA-C [address] [facility] [address] [place] [address] Assigned Surgical Provider 11/04/21 Chidi Puckett MD [address] [place], [place] [address] Assigned Sleep Provider 02/17/22 10/31/23 Harriet Lindsay Personal Advocate & Liaison (PAL) 06/17/22 Aisha Murdock PA-C [facility] [address] [place] [address] [address] Assigned Neuroscience Provider 06/08/22 11/28/23 Lavern Pope MD [address] [facility] [address] [place], [place] [address] Cardiovascular Disease 11/11/22 Lavern Pope MD [address] [facility] [address] [place], [place] [address] Assigned Heart and Vascular Provider 11/16/22 Elmer Paul MD [address] [place], [place] [address] Allergy & Immunology 02/17/23 Elmer Paul MD [address], [address] [place] [address] Assigned Allergy Provider 04/26/23 documented as of this encounter
--- OUTSIDE RECORDS SUMMARY | 2023-12-29 23:12 | XMS_ITS | Encounter Summary ---
Author Name Unknown Organization [place] Address [address] [place] [address] Care Team Providers Care Crayon Sorting Machine Feeder Name Role Phone Carey Vuong MD Primary Care Provider Mehreen Scott MD Unavailable [phone] Carey Vuong MD Unavailable [phone] Prema Hitchcock PA-C Unavailable [phone] Chidi Puckett MD Unavai lable Harriet Lindsay Unavailable Unavailable Aisha Murdock PA-C Unavailable [phone] Lavern Pope MD Unavailable [phone] Lavern Pope MD Unavailable [phone] Elmer Paul MD Unavailable [phone] Elmer Paul MD Unavailable [phone] Encounter Details Date Type Department Care Team (Latest Contact Info) Description 05/20/2023 Travel Social History Tobacco Use Types Packs/Day [...] 06/17/2022 How often do you attend [facility] or christianity services? More than 4 times [...] Answer Date Recorded PHQ-2 Score 1 11/19/2022 [facility] - Occupational Stress Questionnaire Answer Date [...] Sex Assigned at Female 12/12/2019 6:30 PM TUBING OILER Gender Identity Female 12/12/2019 6:30 PM TUBING OILER Sexual Orientation Straight 04/04/2021 12 :18 PM CDT Travel History Travel Start Travel End [place] 12/06/2023 12/12/2023 COVID-19 Exposure Response Date Recorded In the last 10 days, have yo u been in contact with someone who was confirmed or suspected to have Coronavirus/COVID-19? No / Unsure 05/20/2023 1:19 PM CDT documented as of this encounter Plan of Treatment Upcoming Encounters Date Type Department Care Team (Late st Contact Info) Description 03/19/2024 3:30 PM CDT Office Visit [facility] [place] [address] [facility] [address] [place] [address] Elmer Paul MD [address] , [address] [place] [address] 04/16/2024 8:30 AM CDT Lab [facility] Heart [place] [address] [facility] [address] [place] [address] 04/20/2024 8:45 AM CDT Office Visit [facility] [place] [address] [facility] [address] [place] [phone] Lavern Pope MD [address] [facility] [address] [place] [address] documented as of this encounter Visit Diagnoses Not on filedocumented in this encounter Additional Health Concerns Assessment Noted Time PHQ-9 Depression Total Score: 6 11/19/20 22 2:05 PM TUBING OILER documented as of this encounter Care Teams Crayon Sorting Machine Feeder Relationship Specialty Start Date End Date Carey Vuong MD [address] [facility] [place] [address] PCP - General 01/15/02 Mehreen Scott MD [address] [place] [phone] commutator repairer 12/15/19 Carey Vuong MD [address] [facility] [place] [address] Assigned PCP 02/22/21 Prema Hitchcock PA-C [address] [place] [address] Assigned Surgical Provider 11/04/21 Chidi Puckett MD [address] [place] [address] Assigned Sleep Provider 02/17/22 10/31/23 Harriet Lindsay Personal Advocate & Liaison (PAL) 06/17/22 Aisha Murdock PA-C [facility] [address] [place] [address] Assigned Neuroscience Provider 06/08/22 11/28/23 Lavern Pope MD [address] [facility] [address] [place], [place] [address] Cardiovascular Disease 11/11/22 Lavern Pope MD [address] [facility] [address] [place] [address] Assigned Heart and Vascular Provider 11/16/22 Elmer Paul MD [address] [place] [address] Allergy & Immunology 02/17/23 Elmer Paul MD [address], [address] [place] [address] Assigned Allergy Provider 04/26/23 documented as of this encounter
--- OUTSIDE RECORDS SUMMARY | 2023-12-29 23:13 | XMS_ITS | Encounter Summary ---
Author Name Unknown Organization [place] Address [address] [place] [address] Care Team Providers Care Ct Manager Name Role Phone Carey Vuong MD Primary Care Provider [phone] Mehreen Scott MD Unavailable [phone] Carey Vuong MD Unavailable [phone] Prema Hitchcock PA-C Unavailable [phone] Chidi Puckett MD Unahenryi lable Harriet Lindsay Unavailable Unavailable Aisha Murdock PA-C Unavailable [phone] Lavern Pope MD Unavailable [phone] Lavern Pope MD Unavailable [phone] Encounter Details Date Type Department Care Team (Latest Contact Info) Description 01/30/2023 Travel Social History Tobacco Use Types Packs/Day [...] How often do you attend [facility] or jehovah's witness services? More than 4 times per year 06/17/2022 Do you belong to any clubs o r organizations such as christian groups, unions, fraternal or athletic groups, or [...] Answer Date Recorded PHQ-2 Score 1 11/19/2022 [facility] of Occupat ional Health - [...] Sex Assigned at Female 12/12/2019 6:30 PM WATERWORKS OPERATOR Gender Identity Female 12/12/2019 6:30 PM WATERWORKS OPERATOR Sexual Orientation Straight 04/04/2021 12 :18 PM CDT Travel History Travel Start Travel End [place] 12/06/2023 12/12/2023 COVID-19 Exposure Response Date Recorded In the last 10 days, have yo u been in contact with someone who was confirmed or suspected to have Coronavirus/COVID-19? No / Unsure 01/30/2023 2:28 PM WATERWORKS OPERATOR documented as of this encounter Plan of Treatment Upcoming Encounters Date Type Department Care Team (Late st Contact Info) Description 03/19/2024 3:30 PM CDT Office [facility] [address] [place] [address] [address] [place] [phone] Elmer Paul MD [address] [place], [place] [address] 04/16/2024 8:[address] [facility] [address] [place] [phone] 04/20/2024 8:45 AM CDT Office [facility] [address] [facility] [address] [place] [phone] Lavern Pope MD [address] [facility] 275 [place] [id number] documented as of this encounter Visit Diagnoses Not on filedocumented in this encounter Additional Health Concerns Assessment Noted Time PHQ-9 Depression Total Score: 6 11/19/20 22 2:05 PM WATERWORKS OPERATOR documented as of this encounter Care Teams Ct Manager Relationship Specialty Start Date End Date Carey Vuong MD [address] [facility] [place] [address] PCP - General 01/15/02 Mehreen Scott MD [address] [facility] 100 [place] [phone] risk and compliance analytics director 12/15/19 Carey Vuong MD [address] [facility] [place] [address] Assigned PCP 02/22/21 Prema Hitchcock PA-C [address] [facility] [place] [address] Assigned Surgical Provider 11/04/21 Chidi Puckett MD [address] [facility] 106 [place], [place] [address] Assigned Sleep Provider 02/17/22 10/31/23 Harriet Lindsay Personal Advocate & Liaison (PAL) 06/17/22 Aisha Murdock PA-C [facility] [address] [facility] [place] [address] Assigned Neuroscience Provider 06/08/22 11/28/23 Lavern Pope MD [address] [facility] [address] [place] [address] Cardiovascular Disease 11/11/22 Lavern Pope MD [address] [facility] [address] [place] [id number] Assigned Heart and Vascular Provider 11/16/22 documented as of this encounter
--- OUTSIDE RECORDS SUMMARY | 2023-12-29 23:13 | XMS_ITS | Encounter Summary ---
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 Specific Reagents (ASRs) are used in many laboratory tests necessary for standard medical care and generally do not require FDA approval. ??This test was developed and its performance characteristics determined by [facility]. ??It has not been cleared or approved by the US Food and Drug Administration. ImmunoCAP Specific IgE Blood Test Quantitative Scoring <0.10 kU(A)/L ?Absent/undetectable 0.10-0.69 kU(A)/L ?Low 0.70-3.49 kU(A)/L ?Moderate 3.50-17.50 kU(A)/L ?? High >17.50 kU(A)/L ?Very High Please note: In general, low IgE antibody levels indicate a low probability of clinical disease, whereas high antibody levels to an allergen show good correlation with clinical disease. Elmer Paul MD LAB - BLOOD ORDER KARINA SPECIALTY CORE/PROT/ENDO Specialty Core/Prot/Endo [address] [facility] [address] [facility], [address] [place] [address], [facility] [phone] * Allergen oak white IgE (05/09/2023 1:24 PM CDT) Flinton (White) IgE <0.10 <0.10 KU(A)/L 05/13/2023 2:33 PM CDT SPECIALTY CORE/PROT/ENDO Comment:Interpretation: None Detected Blood BLOOD SPECIMEN / Unknown Venipuncture / Unknown 05/09/2023 1:24 PM CDT 05/09/2023 1:25 PM CDT Narrative SPECIALTY CORE/PROT/ENDO - 05/13/2023 2:33 PM CDT ImmunoCAP Specific IgE Blood Test Quantitative Scoring <0.10 kU(A)/L ?Absent/undetectable 0.10-0.69 kU(A)/L ?Low 0.70-3.49 kU(A)/L ?Moderate 3.50-17.50 kU(A)/L ?? High >17.50 kU(A)/L ?Very High Please note: In general, low IgE antibody levels indicate a low probability of clinical disease, whereas high antibody levels to an allergen show good correlation with clinical disease. Elmer Paul MD LAB - BLOOD ORDER KARINA SPECIALTY CORE/PROT/ENDO Specialty Core/Prot/Endo [address] [facility], [address] [phone] * Allergen maple box elder IgE (05/09/2023 1:24 PM CDT) Maple Tree IgE <0.10 <0.10 KU(A)/L 05/13/2023 2:33 PM CDT SPECIALTY CORE/PROT/ENDO Comment:Interpretation: None Detected Blood BLOOD SPECIMEN / Unknown Venipuncture / Unknown 05/09/2023 1:24 PM CDT 05/09/2023 1:25 PM CDT Narrative SPECIALTY CORE/PROT/ENDO - 05/13/2023 2:33 PM CDT ImmunoCAP Specific IgE Blood Test Quantitative Scoring <0.10 kU(A)/L ?Absent/undetectable 0.10-0.69 kU(A)/L ?Low 0.70-3.49 kU(A)/L ?Moderate 3.50-17.50 kU(A)/L ?? High >17.50 kU(A)/L ?Very High Please note: In general, low IgE antibody levels indicate a low probability of clinical disease, whereas high antibody levels to an allergen show good correlation with clinical disease. Elmer Paul MD LAB - BLOOD ORDER KARINA Performing Organization Address [facility] de Phone Number SPECIALTY CORE/PROT/ENDO Specialty Core/Prot/Endo [address] [facility], [address] [phone] * Allergen elm IgE (05/09/2023 1:24 PM CDT) Elm Tree IgE <0.10 <0.10 KU(A)/L 05/13/2023 1:17 PM CDT SPECIALTY CORE/PROT/ENDO Comment:Interpretation: None Detected Blood BLOOD SPECIMEN / Unknown Venipuncture / Unknown 05/09/2023 1:24 PM CDT 05/09/2023 1:25 PM CDT Narrative SPECIALTY CORE/PROT/ENDO - 05/13/2023 1:17 PM CDT ImmunoCAP Specific IgE Blood Test Quantitative Scoring <0.10 kU(A)/L ?Absent/undetectable 0.10-0.69 kU(A)/L ?Low 0.70-3.49 kU(A)/L ?Moderate 3.50-17.50 kU(A)/L ?? High >17.50 kU(A)/L ?Very High Please note: In general, low IgE antibody levels indicate a low probability of clinical disease, whereas high antibody levels to an allergen show good correlation with clinical disease. Elmer Paul MD LAB - BLOOD ORDER KARINA Performing Organization Address [facility] de Phone Number SPECIALTY CORE/PROT/ENDO Specialty Core/Prot/Endo [address] [facility], [address] [phone] * Allergen cottonwood IgE (05/09/2023 1:24 PM CDT) Pathologist [facility] [place] Jatinder IgE <0.10 <0.10 KU(A)/L 05/13/2023 11:34 AM CDT SPECIALTY CORE/PROT/ENDO Comment:Interpretation: None Detected Blood BLOOD SPECIMEN / Unknown Venipuncture / Unknown 05/09/2023 1:24 PM CDT 05/09/2023 1:25 PM CDT Narrative SPECIALTY CORE/PROT/ENDO - 05/13/2023 11:34 AM CDT ImmunoCAP Specific IgE Blood Test Quantitative Scoring <0.10 kU(A)/L ?Absent/undetectable 0.10-0.69 kU(A)/L ?Low 0.70-3.49 kU(A)/L ?Moderate 3.50-17.50 kU(A)/L ?? High >17.50 kU(A)/L ?Very High Please note: In general, low IgE antibody levels indicate a low probability of clinical disease, whereas high antibody levels to an allergen show good correlation with clinical disease. Elmer Paul MD LAB - BLOOD ORDER KARINA SPECIALTY CORE/PROT/ENDO Specialty Core/Prot/Endo [address] [facility], [address] [address], [facility] [phone] * Allergen Craighead IgE (05/09/2023 1:24 PM CDT) Pathologist [facility] [place] Fran, Tree IgE <0.10 <0.10 KU(A)/L 05/13/2023 11:34 AM CDT SPECIALTY CORE/PROT/ENDO Comment:Interpretation: None Detected Blood BLOOD SPECIMEN / Unknown Venipuncture / Unknown 05/09/2023 1:24 PM CDT 05/09/2023 1:25 PM CDT Narrative SPECIALTY CORE/PROT/ENDO - 05/13/2023 11:34 AM CDT ImmunoCAP Specific IgE Blood Test Quantitative Scoring <0.10 kU(A)/L ?Absent/undetectable 0.10-0.69 kU(A)/L ?Low 0.70-3.49 kU(A)/L ?Moderate 3.50-17.50 kU(A)/L ?? High >17.50 kU(A)/L ?Very High Please note: In general, low IgE antibody levels indicate a low probability of clinical disease, whereas high antibody levels to an allergen show good correlation with clinical disease. Elmer Paul MD LAB - BLOOD ORDER KARINA Performing Organization Address [facility]/ZIP Co de Phone Number UM SPECIALTY CORE/PROT/ENDO Specialty Core/Prot/Endo [address] [facility] [address] [facility], [address] [phone] * Allergen ingrid white IgE (05/09/2023 1:24 PM CDT) White Ingrid, Tree IgE <0.10 <0.10 KU(A)/L 05/13/2023 11:34 AM CDT UM SPECIALTY CORE/PROT/ENDO Comment:Interpretation: None Detected Blood BLOOD SPECIMEN / Unknown Venipuncture / Unknown 05/09/2023 1:24 PM CDT 05/09/2023 1:25 PM CDT Narrative SPECIALTY CORE/PROT/ENDO - 05/13/2023 11:34 AM CDT ImmunoCAP Specific IgE Blood Test Quantitative Scoring <0.10 kU(A)/L ?Absent/undetectable 0.10-0.69 kU(A)/L ?Low 0.70-3.49 kU(A)/L ?Moderate 3.50-17.50 kU(A)/L ?? High >17.50 kU(A)/L ?Very High Please note: In general, low IgE antibody levels indicate a low probability of clinical disease, whereas high antibody levels to an allergen show good correlation with clinical disease. Elmer Paul MD LAB - BLOOD ORDER KARINA Performing Organization Address City/[facility]/ZIP Co de Phone Number UM SPECIALTY CORE/PROT/ENDO Specialty Core/Prot/Endo [address] [facility], [address] [phone] * Allergen penicillium notatum IgE (05/09/2023 1:24 PM CDT) Penicillium notatum IgE <0.10 <0.10 KU(A)/L 05/13/2023 2:33 PM CDT SPECIALTY CORE/PROT/ENDO Comment:Interpretation: None Detected Blood BLOOD SPECIMEN / Unknown Venipuncture / Unknown 05/09/2023 1:24 PM CDT 05/09/2023 1:25 PM CDT Narrative SPECIALTY CORE/PROT/ENDO - 05/13/2023 2:33 PM CDT ImmunoCAP Specific IgE Blood Test Quantitative Scoring <0.10 kU(A)/L ?Absent/undetectable 0.10-0.69 kU(A)/L ?Low 0.70-3.49 kU(A)/L ?Moderate 3.50-17.50 kU(A)/L ?? High >17.50 kU(A)/L ?Very High Please note: In general, low IgE antibody levels indicate a low probability of clinical disease, whereas high antibody levels to an allergen show good correlation with clinical disease. Elmer Paul MD LAB - BLOOD ORDER KARINA SPECIALTY CORE/PROT/ENDO Specialty Core/Prot/Endo [address] [facility], [address] [phone] * Allergen Epicoccum purpurascens IgE (05/09/2023 1:24 PM CDT) Epicoccum purpurascens IgE <0.10 <0.10 KU(A)/L 05/13/2023 1:17 PM CDT SPECIALTY CORE/PROT/END O Comment:Interpretation: None Detected Blood BLOOD SPECIMEN / Unknown Venipuncture / Unknown 05/09/2023 1:24 PM CDT 05/09/2023 1:25 PM CDT Narrative SPECIALTY CORE/PROT/ENDO - 05/13/2023 1:17 PM CDT ImmunoCAP Specific IgE Blood Test Quantitative Scoring <0.10 kU(A)/L ?Absent/undetectable 0.10-0.69 kU(A)/L ?Low 0.70-3.49 kU(A)/L ?Moderate 3.50-17.50 kU(A)/L ?? High >17.50 kU(A)/L ?Very High Please note: In general, low IgE antibody levels indicate a low probability of clinical disease, whereas high antibody levels to an allergen show good correlation with clinical disease. Elmer Paul MD LAB - BLOOD ORDER KARINA SPECIALTY CORE/PROT/ENDO Specialty Core/Prot/Endo [address] [facility], [address] [phone] * Allergen cladosporium herbarum IgE (05/09/2023 1:24 PM CDT) Cladosporium herbarum IgE <0.10 <0.10 KU(A)/L 05/13/2023 11:27 AM CDT SPECIALTY CORE/PROT/END O Comment:Interpretation: None Detected Blood BLOOD SPECIMEN / Unknown Venipuncture / Unknown 05/09/2023 1:24 PM CDT 05/09/2023 1:25 PM CDT Narrative SPECIALTY CORE/PROT/ENDO - 05/13/2023 11:27 AM CDT ImmunoCAP Specific IgE Blood Test Quantitative Scoring <0.10 kU(A)/L ?Absent/undetectable 0.10-0.69 kU(A)/L ?Low 0.70-3.49 kU(A)/L ?Moderate 3.50-17.50 kU(A)/L ?? High >17.50 kU(A)/L ?Very High Please note: In general, low IgE antibody levels indicate a low probability of clinical disease, whereas high antibody levels to an allergen show good correlation with clinical disease. Elmer Paul MD LAB - BLOOD ORDER KARINA Performing Organization Address [facility] de Phone Number SPECIALTY CORE/PROT/ENDO Specialty Core/Prot/Endo [address] [facility], [address] [phone] * Allergen aspergillus fumigatus IgE (05/09/2023 1:24 PM CDT) Aspergillis fumigatus IgE <0.10 <0.10 KU(A)/L 05/13/2023 11:34 AM CDT SPECIALTY CORE/PROT/ENDO Comment:Interpretation: None Detected Blood BLOOD SPECIMEN / Unknown Venipuncture / Unknown 05/09/2023 1:24 PM CDT 05/09/2023 1:25 PM CDT Narrative SPECIALTY CORE/PROT/ENDO - 05/13/2023 11:34 AM CDT ImmunoCAP Specific IgE Blood Test Quantitative Scoring <0.10 kU(A)/L ?Absent/undetectable 0.10-0.69 kU(A)/L ?Low 0.70-3.49 kU(A)/L ?Moderate 3.50-17.50 kU(A)/L ?? High >17.50 kU(A)/L ?Very High Please note: In general, low IgE antibody levels indicate a low probability of clinical disease, whereas high antibody levels to an allergen show good correlation with clinical disease. Elmer Paul MD LAB - BLOOD ORDER KARINA Performing Organization Address [facility]/ZIP Co de Phone Number SPECIALTY CORE/PROT/ENDO Specialty Core/Prot/Endo [address] [facility], [address] [phone] * Allergen alternaria alternata IgE (05/09/2023 1:24 PM CDT) Alternaria alternata, Mold IgE <0.10 <0.10 KU(A)/L 05/13/2023 11:34 AM CDT SPECIALTY CORE/PROT/ENDO Comment:Interpretation: None Detected Blood BLOOD SPECIMEN / Unknown Venipuncture / Unknown 05/09/2023 1:24 PM CDT 05/09/2023 1:25 PM CDT Narrative SPECIALTY CORE/PROT/ENDO - 05/13/2023 11:34 AM CDT ImmunoCAP Specific IgE Blood Test Quantitative Scoring <0.10 kU(A)/L ?Absent/undetectable 0.10-0.69 kU(A)/L ?Low 0.70-3.49 kU(A)/L ?Moderate 3.50-17.50 kU(A)/L ?? High >17.50 kU(A)/L ?Very High Please note: In general, low IgE antibody levels indicate a low probability of clinical disease, whereas high antibody levels to an allergen show good correlation with clinical disease. Elmer Paul MD LAB - BLOOD ORDER KARINA SPECIALTY CORE/PROT/ENDO Specialty Core/Prot/Endo [address] [facility] [address], [address] [place] [address] * Allergen D pteronyssinus IgE (05/09/2023 1:24 PM CDT) Dermatophagoide pteronyssinus IgE <0.10 <0.10 KU(A)/L 05/13/2023 1:17 PM CDT SPECIALTY CORE/PROT/END O Comment:Interpretation: None Detected Blood BLOOD SPECIMEN / Unknown Venipuncture / Unknown 05/09/2023 1:24 PM CDT 05/09/2023 1:25 PM CDT Narrative SPECIALTY CORE/PROT/ENDO - 05/13/2023 1:17 PM CDT ImmunoCAP Specific IgE Blood Test Quantitative Scoring <0.10 kU(A)/L ?Absent/undetectable 0.10-0.69 kU(A)/L ?Low 0.70-3.49 kU(A)/L ?Moderate 3.50-17.50 kU(A)/L ?? High >17.50 kU(A)/L ?Very High Please note: In general, low IgE antibody levels indicate a low probability of clinical disease, whereas high antibody levels to an allergen show good correlation with clinical disease. Elmer Paul MD LAB - BLOOD ORDER KARINA Performing Organization Address [facility] de Phone Number SPECIALTY CORE/PROT/ENDO Specialty Core/Prot/Endo [address] [facility], [address] [phone] * Allergen D farinae IgE (05/09/2023 1:24 PM CDT) Dermatophagoides farinae IgE <0.10 <0.10 KU(A)/L 05/13/2023 11:27 AM CDT SPECIALTY CORE/PROT/END O Comment:Interpretation: None Detected Blood BLOOD SPECIMEN / Unknown Venipuncture / Unknown 05/09/2023 1:24 PM CDT 05/09/2023 1:25 PM CDT Narrative SPECIALTY CORE/PROT/ENDO - 05/13/2023 11:27 AM CDT ImmunoCAP Specific IgE Blood Test Quantitative Scoring <0.10 kU(A)/L ?Absent/undetectable 0.10-0.69 kU(A)/L ?Low 0.70-3.49 kU(A)/L ?Moderate 3.50-17.50 kU(A)/L ?? High >17.50 kU(A)/L ?Very High Please note: In general, low IgE antibody levels indicate a low probability of clinical disease, whereas high antibody levels to an allergen show good correlation with clinical disease. Elmer Paul MD LAB - BLOOD ORDER KARINA Performing Organization Address [facility] Co de Phone Number SPECIALTY CORE/PROT/ENDO Specialty Core/Prot/Endo [address] [facility], [address] [phone] * Allergen enrique IgE (05/09/2023 1:24 PM CDT) Enrique Grass IgE <0.10 <0.10 KU(A)/L 05/13/2023 11:34 AM CDT SPECIALTY CORE/PROT/ENDO Comment:Interpretation: None Detected Blood BLOOD SPECIMEN / Unknown Venipuncture / Unknown 05/09/2023 1:24 PM CDT 05/09/2023 1:25 PM CDT Narrative SPECIALTY CORE/PROT/ENDO - 05/13/2023 11:34 AM CDT ImmunoCAP Specific IgE Blood Test Quantitative Scoring <0.10 kU(A)/L ?Absent/undetectable 0.10-0.69 kU(A)/L ?Low 0.70-3.49 kU(A)/L ?Moderate 3.50-17.50 kU(A)/L ?? High >17.50 kU(A)/L ?Very High Please note: In general, low IgE antibody levels indicate a low probability of clinical disease, whereas high antibody levels to an allergen show good correlation with clinical disease. Elmer Paul MD LAB - BLOOD ORDER KARINA SPECIALTY CORE/PROT/ENDO Specialty Core/Prot/Endo [address] [facility], [address] [phone] * Allergen Amandeep grass IgE (05/09/2023 1:24 PM CDT) Pathologist [facility] [place] Amandeep Grass IgE <0.10 <0.10 KU(A)/L 05/15/2023 7:45 AM CDT SPECIALTY CORE/PROT/ENDO Comment:Interpretation: None Detected Blood BLOOD SPECIMEN / Unknown Venipuncture / Unknown 05/09/2023 1:24 PM CDT 05/09/2023 1:25 PM CDT Narrative SPECIALTY CORE/PROT/ENDO - 05/15/2023 7:45 AM CDT ImmunoCAP Specific IgE Blood Test Quantitative Scoring <0.10 kU(A)/L ?Absent/undetectable 0.10-0.69 kU(A)/L ?Low 0.70-3.49 kU(A)/L ?Moderate 3.50-17.50 kU(A)/L ?? High >17.50 kU(A)/L ?Very High Please note: In general, low IgE antibody levels indicate a low probability of clinical disease, whereas high antibody levels to an allergen show good correlation with clinical disease. Elmer Paul MD LAB - BLOOD ORDER KARINA Performing Organization Address [facility]/ZIP Co de Phone Number SPECIALTY CORE/PROT/ENDO Specialty Core/Prot/Endo [address] [facility], [address] [phone] * (ABNORMAL) Allergen dog epithelium IgE (05/09/2023 1:24 PM CDT) [facility] Signature Dog Dander IgE 1.74(H) <0.10 KU(A)/L 05/13/2023 1:17 PM CDT SPECIALTY CORE/PROT/ENDO Comment:Interpretation: Mode rate Blood BLOOD SPECIMEN / Unknown Venipuncture / Unknown 05/09/2023 1:24 PM CDT 05/09/2023 1:25 PM CDT Narrative SPECIALTY CORE/PROT/ENDO - 05/13/2023 1:17 PM CDT ImmunoCAP Specific IgE Blood Test Quantitative Scoring <0.10 kU(A)/L ?Absent/undetectable 0.10-0.69 kU(A)/L ?Low 0.70-3.49 kU(A)/L ?Moderate 3.50-17.50 kU(A)/L ?? High >17.50 kU(A)/L ?Very High Please note: In general, low IgE antibody levels indicate a low probability of clinical disease, whereas high antibody levels to an allergen show good correlation with clinical disease. Elmer Paul MD LAB - BLOOD ORDER KARINA Performing Organization Address [facility]/ZIP Co de Phone Number SPECIALTY CORE/PROT/ENDO Specialty Core/Prot/Endo [address] [facility] [address] [facility], [address] [phone] * (ABNORMAL) Allergen cat epithellium IgE (05/09/2023 1:24 PM CDT) Pathologist [facility] [place] Cat Dander IgE 0.57(H) <0.10 KU(A)/L 05/13/2023 11:27 AM CDT SPECIALTY CORE/PROT/ENDO Comment:Interpretation: Low Blood BLOOD SPECIMEN / Unknown Venipuncture / Unknown 05/09/2023 1:24 PM CDT 05/09/2023 1:25 PM CDT Narrative SPECIALTY CORE/PROT/ENDO - 05/13/2023 11:27 AM CDT ImmunoCAP Specific IgE Blood Test Quantitative Scoring <0.10 kU(A)/L ?Absent/undetectable 0.10-0.69 kU(A)/L ?Low 0.70-3.49 kU(A)/L ?Moderate 3.50-17.50 kU(A)/L ?? High >17.50 kU(A)/L ?Very High Please note: In general, low IgE antibody levels indicate a low probability of clinical disease, whereas high antibody levels to an allergen show good correlation with clinical disease. Elmer Paul MD LAB - BLOOD ORDER KARINA SPECIALTY CORE/PROT/ENDO Specialty Core/Prot/Endo [address] [facility], [address] [place] [address] * BREATHING CAPACITY TEST [76582] (04/22/2023) Pathologist [facility] [place] FEV-1 FVC FEV1/FVC FEF 25/75 Elmer Paul MD PROCEDURES documented in this encounter Visit Diagnoses Diagnosis Mild intermittent asthma without complication- Primary Unspecified asthma Mild persistent asthma with acute exacerbation Unspecified asthma, with exacerbation Sneezing Other symptoms involving head and neck documented in this encounter Additional Health Concerns Assessment Noted Time PHQ-9 Depression Total Score: 6 11/19/20 22 2:05 PM DIRECTOR OF ENTERPRISE APPLICATIONS documented as of this encounter Care Teams Flow Machine Operator Relationship Specialty Start Date End Date Carey Vuong MD [address] [facility] [place] [id number] PCP - General 01/15/02 Mehreen Scott MD [address] [facility] [address] [place] [phone] bolt sawyer 12/15/19 Carey Vuong MD [address] [facility] [place] [id number] Assigned PCP 02/22/21 Prema Hitchcock PA-C [address] [facility] [address] [address] [place] [id number] Assigned Surgical Provider 11/04/21 Chidi Puckett MD [address] [facility] [address] [place] [address] Assigned Sleep Provider 02/17/22 10/31/23 Harriet Lindsay Personal Advocate & Liaison (PAL) 06/17/22 Aisha Murdock PA-C [facility] [address] [place] [id number] Assigned Neuroscience Provider 06/08/22 11/28/23 Lavern Pope MD [address] [facility] [address] [place] [id number] Cardiovascular Disease 11/11/22 Lavern Pope MD [address] [facility] [address] [place] [id number] Assigned Heart and Vascular Provider 11/16/22 Elmer Paul MD [address] , [address] [place] [id number] Allergy & Immunology 02/17/23 documented as of this encounter
--- OUTSIDE RECORDS SUMMARY | 2023-12-29 23:13 | XMS_ITS | Encounter Summary ---
Author Name Unknown Organization [facility] Address [address] [place] [address] Care Team Providers Care Manager Express Name Role Phone Carey Vuong MD Primary Care Provider [phone] Mehreen Scott MD Unavailable [phone] Carey Vuong MD Unavailable [phone] Prema Hitchcock PA-C Unavailable [phone] Chidi Puckett MD Unavai lable Harriet Lindsay Unavailable Unavailable Aisha Murdock PA-C Unavailable [phone] Lavern Pope MD Unavailable [phone] Lavern Pope MD Unavailable [phone] Reason for Visit * Reason Onset Date Comments Refill Request 01/31/2023 triamcinolone (K ENALOG) 0.1 % external cream Encounter Details Date Type Department Care Team (Late st Contact Info) Description 01/31/[address] [facility] [address] [place] [address] Carey Vuong MD [address] [place] [address] [place] [address] Refill Request (triamcinolone (KENALOG) 0.1 % external cream) Social History Tobacco Use Types Packs/Day Years [...] How often do you attend chur or hoahaoism services? More than 4 times per year [...] Answer Date Recorded PHQ-2 Score 1 11/19/2022 [facility] of Occupat ional Health - Occupational Stress [...] place to sleep or slept in a fdc (including now)? No 06/17/2022 Education Answer Date Recorded What is the highest level of school you have completed or the highest degree you have received? Some college, no degree 12/12/2019 Sex and Gender Information Value Date Recorded Sex Assigned at Female 12/12/2019 6:30 PM SCIENTIFIC SOFTWARE DEVELOPER Gender Identity Female 12/12/2019 6:30 PM SCIENTIFIC SOFTWARE DEVELOPER Sexual Orientation Straight 04/04/2021 12 :18 PM CDT Travel History Travel Start Travel End [place] 12/06/2023 12/12/2023 COVID-19 Exposure Response Date Recorded In the last 10 days, have yo u been in contact with someone who was confirmed or suspected to have Coronavirus/COVID-19? No / Unsure 01/30/2023 2:28 PM SCIENTIFIC SOFTWARE DEVELOPER documented as of this encounter Miscellaneous Notes * Telephone Encounter - Arianna Gonzalez RN - 01/31/2023 3:09 PM CST Routing refill request to provider for review/approval because: NEED DIAGNOSIS, last refill issued 08/2021 Arianna Gonzalez RN, BSN [facility] NTIFIC SOFTWARE DEVELOPER documented in this encounter Plan of Treatment Upcoming Encounters Date Type Department Care Team (Late st Contact Info) Description 03/19/2024 3:30 PM CDT Office Visit [facility] [place] [address] [place] [phone] Elmer Paul MD [address] [place] [id number] 04/16/2024 8:30 AM CDT Lab [facility] [address] [facility] [address] [place] [phone] 04/20/2024 8:45 AM CDT Office Visit [facility] [address] [place] [phone] Lavern Pope MD [address] [facility] [address] [place] [id number] documented as of this encounter Visit Diagnoses Diagnosis Itching- Primary Unspecified pruritic disorder documented in this encounter Additional Health Concerns Assessment Noted Time PHQ-9 Depression Total Score: 6 11/19/20 22 2:05 PM SCIENTIFIC SOFTWARE DEVELOPER documented as of this encounter Care Teams Manager Express Relationship Specialty Start Date End Date Carey Vuong MD [address] [facility] [place] [address] PCP - General 01/15/02 Mehreen Scott MD [address] [place] [phone] crm marketing analyst 12/15/19 Carey Vuong MD [address] [facility] [place] [address] Assigned PCP 02/22/21 Prema Hitchcock PA-C [address] [place] [address] Assigned Surgical Provider 11/04/21 Chidi Puckett MD [address] [place], [place] [address] Assigned Sleep Provider 02/17/22 10/31/23 Harriet Lindsay Personal Advocate & Liaison (PAL) 06/17/22 Aisha Murdock PA-C [facility] [address] [place] [address] Assigned Neuroscience Provider 06/08/22 11/28/23 Lavern Pope MD [address] [facility] [address] [place], [place] [address] Cardiovascular Disease 11/11/22 Lavern Pope MD [address] [facility] [address] [address] [place], [place] [address] Assigned Heart and Vascular Provider 11/16/22 documented as of this encounter
--- OUTSIDE RECORDS SUMMARY | 2023-12-29 23:13 | XMS_ITS | Encounter Summary ---
Author Name Unknown Organization [facility] Address [address] [place] [address] Care Team Providers Care Wind Farm Operations Manager Name Role Phone Carey Vuong MD Primary Care Provider Mehreen Scott MD Unavailable [phone] Carey Vuong MD Unavailable [phone] Prema Hitchcock PA-C Unavailable [phone] Chidi Puckett MD Unavai lable Harriet Lindsay Unavailable Unavailable Aisha Murdock PA-C Unavailable [phone] Lavern Pope MD Unavailable [phone] Lavern Pope MD Unavailable [phone] Elmer Paul MD Unavailable [phone] Encounter Details Date Type Department Care Team (Latest Contact Info) Description 02/17/2023 Travel Social History Tobacco Use Types Packs/Day [...] How often do you attend chur or mormon services? More than 4 times [...] Recorded PHQ-2 Score 1 11/19/2022 [facility] of Occupat ional Health - [...] place to sleep or slept in a assisted (including now)? No 06/17/2022 Education Answer Date Recorded What is the highest level of school you have completed or the highest degree you have received? 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 Unable to assess 02/17/2023 9:50 AM CDT documented as of this encounter Plan of Treatment Upcoming Encounters Date Type Department Care Team (Late st Contact Info) Description 03/19/2024 3:30 PM CDT Office Visit [facility] [place] [address] [place] [address] [address] [place] [phone] Elmer Paul MD [address] [place] [address] 04/16/2024 8:30 AM CDT Lab [facility] [address] [place] [address] 04/20/2024 8:45 AM CDT Office Visit [facility] [address] [facility] [address] [place] [phone] Lavern Pope MD [address] [facility] [address] [place] [phone] documented as of this encounter Visit Diagnoses Not on filedocumented in this encounter Additional Health Concerns Assessment Noted Time PHQ-9 Depression Total Score: 6 11/19/20 22 2:05 PM CORNCOB PIPES ASSEMBLER documented as of this encounter Care Teams Wind Farm Operations Manager Relationship Specialty Start Date End Date Carey Vuong MD [address] [facility] [place] [address] PCP - General 01/15/02 Mehreen Scott MD [address] [address] [place] [address] costume design teacher 12/15/19 [place] [address] [place] [address] [place] [address] Assigned PCP 02/22/21 Prema Hitchcock PA-C [address] [place] [address] Assigned Surgical Provider 11/04/21 Chidi Puckett MD [address] [facility] 106 [place] [address] Assigned Sleep Provider 02/17/22 10/31/23 Harriet Lindsay Personal Advocate & Liaison (PAL) 06/17/22 Aisha Murdock PA-C [facility] [address] [place] [address] Assigned Neuroscience Provider 06/08/22 11/28/23 Lavern Pope MD [address] [facility] [address] [place] [id number] Cardiovascular Disease 11/11/22 Lavern Pope MD [address] [facility] [address] [place] [phone] Assigned Heart and Vascular Provider 11/16/22 Elmer Paul MD [address] [place] [address] Allergy & Immunology 02/17/23 documented as of this encounter
--- OUTSIDE RECORDS SUMMARY | 2023-12-29 23:13 | XMS_ITS | Encounter Summary ---
Author Name Unknown Organization [facility] Address [address] [place] [address] Care Team Providers Care Training Executive Name Role Phone Carey Vuong MD Primary Care Provider Mehreen Scott MD Unavailable [phone] Carey Vuong MD Unavailable Prema Hitchcock PA-C Unavailable [phone] Chidi Puckett MD Unavai lable Harriet Lindsay Unavailable Unavailable Aisha Murdock PA-C Unavailable [phone] Lavern Pope MD Unavailable [phone] Lavern Pope MD Unavailable [phone] Elmer Paul MD Unavailable [phone] Encounter Details Date Type Department Care Team (Latest Contact Info) Description 04/22/2023 Travel Social History Tobacco Use Types Packs/Day [...] How often do you attend chur or islam services? 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 Gender Identity Female 12/12/2019 6:30 PM ELECTRICAL MECHANICAL TECHNICIAN Sexual Orientation Straight 04/04/2021 12 :18 [...] Office Visit [facility] Specialty [address] [place] [phone] Elmer Paul MD [address], [address] [place] [id number] 04/16/2024 8:30 AM CDT Lab [facility] [address] [place] [address] 04/20/2024 8:45 AM CDT Office Visit [facility] [address] [facility] [address] [place] [phone] Lavern Pope MD [address] [facility] [address] [place] [phone] documented as of this encounter Visit Diagnoses Not on filedocumented in this encounter Additional Health Concerns Assessment Noted Time PHQ-9 Depression Total Score: 6 11/19/20 22 2:05 PM ELECTRICAL MECHANICAL TECHNICIAN documented as of this encounter Care Teams Training Executive Relationship Specialty [place] [address] [place] [address] [place] [address] PCP - General 01/15/02 Mehreen Scott MD [address] [address] [place] [phone] broadcast correspondent 12/15/19 [place] [address] [place] [address] [place] [address] Assigned PCP 02/22/21 Prema Hitchcock PA-C [address] [facility] [place] [address] Assigned Surgical Provider 11/04/21 Chidi Puckett MD [address] [facility] 106 [place] [address] Assigned Sleep Provider 02/17/22 10/31/23 Harriet Lindsay Personal Advocate & Liaison (PAL) 06/17/22 Aisha Murdock PA-C [facility] [address] [place] [address] Assigned Neuroscience Provider 06/08/22 11/28/23 Lavern Pope MD [address] [facility] [address] [place] [address] Cardiovascular Disease 11/11/22 Lavern Pope MD [address] [facility] [address] [place] [address] Assigned Heart and Vascular Provider 11/16/22 Elmer Paul MD [address] [place] [address] Allergy & Immunology 02/17/23 documented as of this encounter
--- OUTSIDE RECORDS SUMMARY | 2023-12-29 23:13 | XMS_ITS | Encounter Summary ---
Author Name Unknown Organization [facility] Address [address] [place] [address] Care Team Providers Care Basic Sciences Professor Name Role Phone Carey Vuong MD Primary Care Provider [phone] Mehreen Scott MD Unavailable [phone] Carey Vuong MD Unavailable [phone] Prema Hitchcock PA-C Unavailable [phone] Chidi Puckett MD Unavai lable Harriet Lindsay Unavailable Unavailable Aisha Murdock PA-C Unavailable [phone] Lavern Pope MD Unavailable [phone] Lavern Pope MD Unavailable [phone] Elmer Paul MD Unavailable [phone] Elmer Paul MD Unavailable [phone] Encounter Details Date Type Department Care Team (Late st Contact Info) Description 05/09/2023 1:30 PM CDT Lab [facility] [address] [place] [phone] Mild persistent asthma with acute exacerbation; Sneezing [...] How often do you attend chur or rastafari services? 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 [address] [place] [phone] Elmer Paul MD [address] [place] [address] 04/16/2024 8:30 AM CDT Lab M [facility] [address] [facility] [address] [place] [phone] 04/20/2024 8:45 AM CDT Office Visit M [facility] [address] [facility] [address] [place] [phone] Lavern Pope MD [address] [facility] [address] [place] [address] documented as of this encounter Procedures Procedure Name Priority Date/Time Associated Diagnosis Comments ALLERGEN WALNUT TREE Routine 05/09/2023 1:24 PM CDT Mild persistent asthma with acute exacerbation Sneezing ALLERGEN WEED NETTLE IGE Routine 05/09/2023 1:24 PM CDT Mild persistent asthma with acute exacerbation Sneezing ALLERGEN RED MULBERRY IGE Routine 05/09/2023 1:24 PM CDT Mild persistent asthma with acute exacerbation Sneezing ALLERGEN CEDAR IGE Routine 05/09/2023 1: 24 PM CDT Mild persistent asthma with acute exacerbation Sneezing ALLERGEN EPICOCCUM PURPURASCENS IGE Routine 05/09/2023 1:24 PM CDT Mild persistent asthma with acute exacerbation Sneezing ALLERGEN SAGEBRUSH WORMWOOD IGE Routine 05/09/2023 1:24 PM CDT Mild persistent asthma with acute exacerbation Sneezing ALLERGEN MUGWORT IGE Routine 05/09/2023 1:24 PM CDT Mild persistent asthma with acute exacerbation Sneezing ALLERGEN SHEEP SORREL IGE Routine 05/09/2023 1:24 PM CDT Mild persistent asthma with acute exacerbation Sneezing ALLERGEN TREE WHITE MULBERRY IGE Routine 05/09/2023 1:24 PM CDT Mild persistent asthma with acute exacerbation Sneezing ALLERGEN KOCHIA/FIREBUSH Routine 05/09/2023 1:24 PM CDT Mild persistent asthma with acute exacerbation Sneezing IGE Routine 05/09/2023 1:24 PM CDT Mild persistent asthma with acute exacerbation Sneezing ALLERGEN WHITE PINE IGE Routine 05/09/2023 1:24 PM CDT Mild persistent asthma with acute exacerbation Sneezing ALLERGEN ENRIQUE IGE Routine 05/09/2023 1:24 PM CDT Mild persistent asthma with acute exacerbation Sneezing ALLERGEN THISTLE CAPE VERDEAN IGE Routine 05/09/2023 1:24 PM CDT Mild persistent asthma with acute exacerbation Sneezing ALLERGEN SILVER BIRCH IGE Routine 05/09/2023 1:24 PM CDT Mild persistent asthma with acute exacerbation Sneezing ALLERGEN RAGWEED SHORT IGE Routine 05/09/2023 1:24 PM CDT Mild persistent asthma with acute exacerbation Sneezing ALLERGEN PENICILLIUM NOTATUM IGE Routine 05/09/2023 1:24 PM CDT Mild persistent asthma with acute exacerbation Sneezing ALLERGEN OAK WHITE IGE Routine 1:24 PM CDT Mild persistent asthma with acute exacerbation Sneezing ALLERGEN MAPLE BOX ELDER IGE Routine 05/09/2023 1:24 PM CDT Mild persistent asthma with acute exacerbation Sneezing ALLERGEN MORRIS'S QUARTER IGE Routine 05/09/2023 1:24 PM CDT Mild persistent asthma with acute exacerbation Sneezing ALLERGEN AMANDEEP GRASS IGE Routine 05/09/2023 1:24 PM CDT Mild persistent asthma with acute exacerbation Sneezing ALLERGEN GIANT RAGWEED IGE Routine 05/09/2023 1:24 PM CDT Mild persistent asthma with acute exacerbation Sneezing ALLERGEN KHMER PLANTAIN IGE Routine 05/09/2023 1:24 PM CDT Mild persistent asthma with acute exacerbation Sneezing ALLERGEN ELM IGE Routine 05/09/2023 1:24 PM CDT Mild persistent asthma with acute exacerbation Sneezing ALLERGEN DOG EPITHELIUM IGE Routine 05/09/2023 1:24 PM CDT Mild persistent asthma with acute exacerbation Sneezing ALLERGEN D PTERONYSSINUS IGE Routine 05/09/2023 1:24 PM CDT Mild persistent asthma with acute exacerbation Sneezing ALLERGEN D FARINAE IGE Routine 1:24 PM CDT Mild persistent asthma with acute exacerbation Sneezing ALLERGEN COTTONWOOD IGE Routine 05/09/2023 1:24 PM CDT Mild persistent asthma with acute exacerbation Sneezing ALLERGEN CLADOSPORIUM HERBARUM IGE Routine 05/09/2023 1:24 PM CDT Mild persistent asthma with acute exacerbation Sneezing ALLERGEN CAT EPITHELLIUM IGE Routine 05/09/2023 1:24 PM CDT Mild persistent asthma with acute exacerbation Sneezing ALLERGEN ASPERGILLUS FUMIGATUS IGE Routine 05/09/2023 1:24 PM CDT Mild persistent asthma with acute exacerbation Sneezing ALLERGEN INGRID WHITE IGE Routine 1:24 PM CDT Mild persistent asthma with acute exacerbation Sneezing ALLERGEN ALTERNARIA ALTERNATA IGE Routine 05/09/2023 1:24 PM CDT Mild persistent asthma with acute exacerbation Sneezing documented in this encounter Results * IgE (05/09/2023 1:24 PM CDT) [facility] Immunoglobulin E 21 0 - 114 kU/L 05/11/2023 2:11 PM CDT UM SPECIALTY CORE/PROT/END O Blood BLOOD SPECIMEN / Unknown Venipuncture / Unknown 05/09/2023 1:24 PM CDT 05/09/2023 1:25 PM CDT Elmer Paul MD LAB - BLOOD ORDER KARINA Performing Organization Address City/[facility]/ZIP Co de Phone Number UM SPECIALTY CORE/PROT/ENDO UM Specialty Core/Prot/Endo [address] [facility] [address], [address] [place] [address], [facility] [phone] * Allergen, Kochia/Firebush (05/09/2023 1:24 PM CDT) [facility] IgE <0.10 <0.10 KU(A)/L 05/13/2023 1:17 PM [...] - BLOOD ORDER KARINA Performing Organization Address City/[facility]/ZIP Co de Phone Number UM SPECIALTY CORE/PROT/ENDO UM Specialty Core/Prot/Endo [address] [facility] [address], [address] [place] [address], [facility] [phone] * Allergen [place] Abdias IgE (05/09/2023 1:24 PM CDT) Pathologist [facility] [place] IgE <0.10 <0.10 KU(A)/L 05/13/2023 11:54 [...] ORDER KARINA SPECIALTY CORE/PROT/ENDO Specialty Core/Prot/Endo [address] [facility], [address] [phone] * Allergen thistle Romanian IgE (05/09/2023 1:24 PM CDT) [place] Thistle IgE <0.10 <0.10 KU(A)/L 05/13/2023 11:54 [...] - BLOOD ORDER KARINA Performing Organization Address [facility]/ZIP Co de Phone Number SPECIALTY CORE/PROT/ENDO Specialty Core/Prot/Endo [address] [facility] [address] [facility], [address], [place] [address], [facility] [phone] * Allergen Sheep [place]ee IgE (05/09/2023 1:24 PM CDT) [facility] Signature Sheep [place] IgE <0.10 <0.10 KU(A)/L 05/13/2023 11:54 AM CDT UM SPECIALTY CORE/PROT/ENDO Comment:Interpretation: None [...] ORDER KARINA SPECIALTY CORE/PROT/ENDO Specialty Core/Prot/Endo [address] [facility] [address] [facility], [address] [phone] * Allergen Aj [place]orm[place] IgE (05/09/2023 1:24 PM CDT) Jaybrkadie Wormwood IgE <0.10 <0.10 KU(A)/L 05/13/2023 2:33 [...] - BLOOD ORDER KARINA Performing Organization Address City/[facility]/ZIP Co de Phone Number SPECIALTY CORE/PROT/ENDO Specialty Core/Prot/Endo [address] [facility], [address] [phone] * Allergen ragweed short IgE (05/09/2023 1:24 [...] ORDER KARINA SPECIALTY CORE/PROT/ENDO Specialty Core/Prot/Endo [address] [facility], [address] [phone] * Allergen Mugwort IgE (05/09/2023 1:24 PM [...] - BLOOD ORDER KARINA Performing Organization Address City/[facility]/RUST Co de Phone Number SPECIALTY CORE/PROT/ENDO Specialty Core/Prot/Endo [address] [facility], [address] [phone] * Allergen morris's quarter IgE (05/09/2023 1:24 [...] - BLOOD ORDER KARINA Performing Organization Address City/[facility]/ZIP Co de Phone Number SPECIALTY CORE/PROT/ENDO Specialty Core/Prot/Endo [address] [facility], [address], [place] [address], [facility] [phone] * Allergen giant ragweed IgE (05/09/2023 1:24 [...] ORDER KARINA SPECIALTY CORE/PROT/ENDO Specialty Core/Prot/Endo [address] [facility], [address] [phone] * Allergen Cuban plantain IgE (05/09/2023 1:24 PM CDT) Cuban Plantain IgE <0.10 <0.10 KU(A)/L 05/13/2023 1:17 [...] - BLOOD ORDER KARINA Performing Organization Address [facility] de Phone Number SPECIALTY CORE/PROT/ENDO Specialty Core/Prot/Endo [address] [facility], [address] [phone] * Allergen white pine IgE (05/09/2023 1:24 PM CDT) [place] IgE <0.10 <0.10 KU(A)/L 05/13/2023 11:38 AM [...] - BLOOD ORDER KARINA Performing Organization Address [facility]/RUST Co de Phone Number SPECIALTY CORE/PROT/ENDO Specialty Core/Prot/Endo [address] [facility], [address] [phone] * Allergen [place] Tree (05/09/2023 1:24 PM CDT) [place] Tree IgE <0.10 <0.10 KU(A)/L 05/13/2023 11:38 [...] ORDER KARINA SPECIALTY CORE/PROT/ENDO Specialty Core/Prot/Endo [address] [facility], [address], [place] [address], [facility] [phone] * Allergen Tree White Alb[place] IgE (05/09/2023 1:24 PM CDT) [place] IgE <0.10 <0.10 KU(A)/L 05/13/2023 11:38 AM [...] - BLOOD ORDER KARINA Performing Organization Address [facility]/ZIP Co de Phone Number SPECIALTY CORE/PROT/ENDO Specialty Core/Prot/Endo [address] [facility] [address] [facility], [address] [phone] * Allergen silver birch IgE (05/09/2023 1:24 PM CDT) [facility] Signature Silver Birch IgE <0.10 <0.10 KU(A)/L 05/13/2023 [...] - BLOOD ORDER KARINA Performing Organization Address [facility]/ZIP Co de Phone Number SPECIALTY CORE/PROT/ENDO Specialty Core/Prot/Endo [address] [facility], [address] [phone] * Allergen Red Alb[place] IgE (05/09/2023 1:24 PM CDT) [place] IgE <0.10 <0.10 KU(A)/L 05/13/2023 2:33 PM [...] developed and its performance characteristics determined by [facility]. ??It has not been cleared [...] ORDER KARINA SPECIALTY CORE/PROT/ENDO Specialty Core/Prot/Endo [address] [facility], [address] [place] [address], [facility] [phone] * Allergen oak white IgE (05/09/2023 1:24 PM CDT) [place] (White) IgE <0.10 <0.10 KU(A)/L 05/13/2023 2:33 [...] ORDER KARINA SPECIALTY CORE/PROT/ENDO Specialty Core/Prot/Endo [address] [facility] [address] [facility], [address], [place] [address], [facility] [phone] * Allergen maple box elder IgE (05/09/2023 [...] - BLOOD ORDER KARINA Performing Organization Address [facility] de Phone Number SPECIALTY CORE/PROT/ENDO Specialty Core/Prot/Endo [address] [facility], [address] [phone] * Allergen elm IgE (05/09/2023 1:24 PM [...] - BLOOD ORDER KARINA Performing Organization Address [facility]/[place]UST Co de Phone Number UM SPECIALTY CORE/PROT/ENDO Specialty Core/Prot/Endo [address] [facility] [address] [facility], [address] [phone] * Allergen cottonwood IgE (05/09/2023 1:24 PM CDT) Pathologist [facility] IgE <0.10 <0.10 KU(A)/L 05/13/2023 11:34 [...] ORDER KARINA SPECIALTY CORE/PROT/ENDO Specialty Core/Prot/Endo [address] [facility], Room [address] [place] [address] * Allergen [place] IgE (05/09/2023 1:24 PM CDT) Pathologist [facility] Fran, Tree IgE <0.10 <0.10 KU(A)/L 05/13/2023 [...] - BLOOD ORDER KARINA Performing Organization Address [facility]/ZIP Co de Phone Number SPECIALTY CORE/PROT/ENDO Specialty Core/Prot/Endo [address] [facility] [address] [facility], [address] [phone] * Allergen ingrid white IgE (05/09/2023 1:24 [...] - BLOOD ORDER KARINA Performing Organization Address [facility]/ZIP Co de Phone Number SPECIALTY CORE/PROT/ENDO Specialty Core/Prot/Endo [address] [facility] [address] Building, Room [address] [place] [address] * Allergen penicillium notatum IgE (05/09/2023 1:24 PM CDT) Penicillium notatum IgE <0.10 <0.10 KU(A)/L 05/13/2023 2:33 PM CDT UM SPECIALTY CORE/PROT/ENDO Comment:Interpretation: None [...] - BLOOD ORDER KARINA UM SPECIALTY CORE/PROT/ENDO Specialty Core/Prot/Endo [address] [facility] [address] [facility], [address] [phone] * Allergen Epicoccum purpurascens IgE (05/09/2023 1:24 PM CDT) Epicoccum purpurascens IgE <0.10 <0.10 KU(A)/L 05/13/2023 1:17 PM CDT UM SPECIALTY CORE/PROT/END O Comment:Interpretation: None Detected Blood [...] ORDER KARINA SPECIALTY CORE/PROT/ENDO Specialty Core/Prot/Endo [address] [facility] [address] [facility], [address] [phone] * Allergen cladosporium herbarum IgE (05/09/2023 1:24 [...] - BLOOD ORDER KARINA Performing Organization Address [facility]/[place] Co de Phone Number SPECIALTY CORE/PROT/ENDO Specialty Core/Prot/Endo [address] [facility], [address] [phone] * Allergen aspergillus fumigatus IgE (05/09/2023 1:24 [...] - BLOOD ORDER KARINA Performing Organization Address [facility]/[place] Co de Phone Number SPECIALTY CORE/PROT/ENDO Specialty Core/Prot/Endo [address] [facility], [address] [phone] * Allergen alternaria alternata IgE (05/09/2023 1:24 [...] ORDER KARINA SPECIALTY CORE/PROT/ENDO Specialty Core/Prot/Endo [address] [facility] [address] [facility], [address] [phone] * Allergen D pteronyssinus IgE (05/09/2023 1:24 [...] - BLOOD ORDER KARINA Performing Organization Address [facility] de Phone Number SPECIALTY CORE/PROT/ENDO Specialty Core/Prot/Endo [address] [facility], [address] [phone] * Allergen D farinae IgE (05/09/2023 1:24 [...] - BLOOD ORDER KARINA Performing Organization Address [facility]/[place] Co de Phone Number SPECIALTY CORE/PROT/ENDO Specialty Core/Prot/Endo [address] [facility] [address] [facility], [address] [phone] * Allergen enrique IgE (05/09/2023 1:24 PM [...] ORDER KARINA SPECIALTY CORE/PROT/ENDO Specialty Core/Prot/Endo [address] [facility], [address] [place] [address] * Allergen Amandeep grass IgE (05/09/2023 1:24 PM CDT) Amandeep Grass IgE <0.10 <0.10 KU(A)/L 05/15/2023 [...] - BLOOD ORDER KARINA Performing Organization Address [facility]/ZIP Co de Phone Number SPECIALTY CORE/PROT/ENDO Specialty Core/Prot/Endo [address] [facility] [address], [address] [phone] * (ABNORMAL) Allergen dog epithelium IgE (05/09/2023 1:24 PM CDT) [facility] Dog Dander IgE 1.74(H) <0.10 KU(A)/L 05/13/2023 [...] - BLOOD ORDER KARINA Performing Organization Address [facility]/ZIP Co de Phone Number SPECIALTY CORE/PROT/ENDO Specialty Core/Prot/Endo [address], [address] [phone] * (ABNORMAL) Allergen cat epithellium IgE (05/09/2023 1:24 PM CDT) Cat Dander IgE 0.57(H) <0.10 KU(A)/L 05/13/2023 [...] ORDER KARINA SPECIALTY CORE/PROT/ENDO Specialty Core/Prot/Endo [address] [facility], [address] [place] [address] documented in this encounter Visit Diagnoses Diagnosis Mild persistent asthma with acute exacerbation Unspecified asthma, with exacerbation Sneezing Other symptoms involving head and neck documented in this encounter Additional Health Concerns Assessment Noted Time PHQ-9 Depression Total Score: 6 11/19/20 22 2:05 PM 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 documented as of this encounter Care Teams Basic Sciences Professor Relationship Specialty Start Date End Date Carey Vuong MD [address] [place] [address] [address] [place], [place] [address] PCP - General 01/15/02 Mehreen Scott MD [address] [place] [phone] parking station attendant 12/15/19 Carey Vuong MD [address] [facility] [place] [address] Assigned PCP 02/22/21 Prema Hitchcock PA-C [address] [facility] [place], [place] [address] Assigned Surgical Provider 11/04/21 Chidi Puckett MD [address] [facility] [address] [place], [place] [address] Assigned Sleep Provider 02/17/22 10/31/23 Harriet Lindsay Personal Advocate & Liaison (PAL) 06/17/22 Aisha Murdock PA-C [facility] [address] [place] [address] Assigned Neuroscience Provider 06/08/22 11/28/23 Lavern Pope MD [address] [facility] [address] [place], [place] [address] Cardiovascular Disease 11/11/22 Lavern Pope MD [address] [facility] [address] [place], [place] [address] Assigned Heart and Vascular Provider 11/16/22 Elmer Paul MD [address], [address] [place] [address] MD Allergy & Immunology 02/17/23 Elmer Paul MD [address], [address] [place] [address] Assigned Allergy Provider 04/26/23 documented as of this encounter
--- OUTSIDE RECORDS SUMMARY | 2023-12-29 23:13 | XMS_ITS | Encounter Summary ---
Author Name Unknown Organization [facility] Address [address] [place] [address] Care Team Providers Care Asphalt Coater Name Role Phone Carey Vuong MD Primary Care Provider [phone] Mehreen Scott MD Unavailable [phone] Carey Vuong MD Unavailable [phone] Prema Hitchcock PA-C Unavailable [phone] Chidi Puckett MD Unavai lable Harriet Lindsay Unavailable Unavailable Aisha Murdock PA-C Unavailable [phone] Lavern Pope MD Unavailable [phone] Lavern Pope MD Unavailable [phone] Elmer Paul MD Unavailable [phone] Reason for Visit * Reason Comments Other Entered automaticall y based on patient selection in [employer]. Encounter Details Date Type Department Care Team (Late st Contact Info) Description 02/17/2023 10:00 AM CDT E-Visit [address] [place] [address] Carey Vuong MD [address] [facility] [place] [address] Other (Entered automatically based on andree... Social History [...] How often do you attend chur or congregational services? More than 4 times [...] Answer Date Recorded PHQ-2 Score 1 11/19/2022 [facility] of Occupat ional Health - Occupational Stress [...] Sex Assigned at Female 12/12/2019 6:30 PM LEATHER PIECE INSPECTOR Gender Identity Female 12/12/2019 6:30 PM LEATHER PIECE INSPECTOR Sexual Orientation Straight 04/04/2021 12 :18 [...] Telephone Encounter - Carey Vuong MD - 02/17/2023 2:14 PM CDT Provider E-Visit time total (minutes): 12 documented in this encounter Plan of Treatment Upcoming Encounters Date Type Department Care Team (Late st Contact Info) Description 03/19/2024 3:30 PM CDT Office Visit [facility] [address] [place] [phone] Elmer Paul MD [address] [facility] [address] [place] [address] 04/16/2024 8:30 AM CDT Lab [facility] [address] [facility] [address] [place] [phone] 04/20/2024 8:45 AM CDT Office Visit [facility] [address] [facility] [address] [place] [phone] Lavern Pope MD [address] [facility] [address] [place] [address] documented as of this encounter Visit Diagnoses Diagnosis Mild intermittent asthma without complication Unspecified asthma documented in this encounter Additional Health Concerns Assessment Noted Time PHQ-9 Depression Total Score: 6 11/19/20 22 2:05 PM LEATHER PIECE INSPECTOR documented as of this encounter Care Teams Asphalt Coater Relationship Specialty [place] [address] [place] [address] [place]T [address] PCP - General 01/15/02 Mehreen Scott MD [address] [place] [phone] boat carpenter 12/15/19 [place] [address] [place] [address] [place] [address] Assigned PCP 02/22/21 Prema Hitchcock PA-C [address] [place] [address] Assigned Surgical Provider 11/04/21 Chidi Puckett MD [address] [place] [address] Assigned Sleep Provider 02/17/22 10/31/23 Harriet Lindsay Personal Advocate & Liaison (PAL) 06/17/22 Aisha Murdock PA-C [facility] [address] [place] [address] Assigned Neuroscience Provider 06/08/22 11/28/23 Lavern Pope MD [address] [facility] [address] [place] [address] Cardiovascular Disease 11/11/22 Lavern Pope MD [address] [facility] [address] [place] [address] Assigned Heart and Vascular Provider 11/16/22 Elmer aPul MD [address] [place] [address] Allergy & Immunology 02/17/23 documented as of this encounter
--- OUTSIDE RECORDS SUMMARY | 2023-12-29 23:13 | XMS_ITS | Encounter Summary ---
Author Name Unknown Organization [facility] Address [address] [place] [address] Care Team Providers Care Local Coordinator Name Role Phone Carey Vuong MD Primary Care Provider [phone] Mehreen Scott MD Unavailable [phone] Carey Vuong MD Unavailable [phone] Prema Hitchcock PA-C Unavailable +[phone] Chidi Puckett MD Unavai lable Harriet Lidnsay Unavailable Unavailable Aisha Murdock PA-C Unavailable [phone] Lavern Pope MD Unavailable [phone] Lavern Pope MD Unavailable [phone] Elmer Paul MD Unavailable [phone] Reason for Visit * Reason Onset Date Comments Call Back 02/17/2023 Patient has appt to see Dr. Paul on 04/22/2023. Patient states she cannot stop taking antihistamines for 7 days as she takes Zyrtec 2X/day and uses her inhaler multiple times and sometimes needs Benadryl when it gets too bad. Please call back to discuss with patient what she can do. Thank you Encounter Details Date Type Department Care Team (Late st Contact Info) Description 02/17/2023 Telephone [facility] [address] [facility] [address] [place] [address] Elmer Paul MD [address] , [address] [place] [address] Call Back (Patient has appt to see Dr. Paul on 04/22/2023. Patient states she cannot stop taking antihistamines for 7 days as she takes Zyrtec 2X/day and uses her inhaler multiple times and sometimes needs Benadryl when it gets too bad. Please call back to discuss with patient what she can do. Thank you) Social History Tobacco Use Types Packs/Day Years [...] How often do you attend chur or jain services? More than 4 times [...] Answer Date Recorded PHQ-2 Score 1 11/19/2022 [facility] - Occupational Stress Questionnaire Answer Date [...] Assigned at Female 12/12/2019 6:30 PM ASSISTANT OPERATOR Gender Identity Female 12/12/2019 6:30 PM ASSISTANT OPERATOR Sexual Orientation Straight 04/04/2021 12 :18 PM CDT Travel History Travel Start Travel End [place] 12/06/2023 12/12/2023 COVID-19 Exposure Response Date Recorded In the last 10 days, have ele u been in contact with someone who was confirmed or suspected to have Coronavirus/COVID-19? Unable to assess 02/17/2023 9:50 AM CDT documented as of this encounter Miscellaneous Notes * Telephone Encounter - Antonio Brumfield MA - 02/17/2023 10:21 AM CDT Called and talked to pt that is not necessary to stop taking anti histamine before her appointment,told pt she can still coming for this visit. Paint Roller Winder also explained to patient there is another option for allergy testing that is blood work. Pt understood and had no question for the scientific technical writer. Antonio Brumfield MA * Telephone Encounter - Amy Chatman - 02/17/2023 9:53 AM CDT [facility] Call Center Phone Message May a detailed message be left on voicemail: yes Reason for Call: Other: Patient has appt to see Dr. Paul on 04/22/2023. Patient states she cannot stop taking antihistamines for 7 days as she takes Zyrtec 2X/day and uses her inhaler multiple timesand sometimes needs Benadryl when it gets too bad. Please call back to discuss with patient what she can do. Thank you Action Taken: Other: CS Allergy Travel Screening: Not Applicable documented in this encounter Plan of Treatment Upcoming Encounters Date Type Department Care Team (Late st Contact Info) Description 03/19/2024 3:30 PM CDT Office Visit [facility] Special[facility] [address] [place] [phone] Elmer Paul MD [address] [facility] [address] [place], [place] [address] 04/16/2024 8:30 AM CDT Lab [facility] [address] [facility] [address] [place] [phone] 04/20/2024 8:45 AM CDT Office Visit [facility] [address] [facility] [address] [place] [phone] Lavern Pope MD [address] [facility] [address] [place] [address] documented as of this encounter Visit Diagnoses Not on filedocumented in this encounter Additional Health Concerns Assessment Noted Time PHQ-9 Depression Total Score: 6 11/19/20 22 2:05 PM ASSISTANT OPERATOR documented as of this encounter Care Teams Local Coordinator Relationship Specialty Start Date End Date Carey Vuong MD [address] [facility] [place] [address] PCP - General 01/15/02 Mehreen Scott MD [address] 100 [place] [phone] production team leader 12/15/19 Carey Vuong MD [address] [facility] [place] [address] Assigned PCP 02/22/21 Prema Hitchcock PA-C [address] [facility] [place] [address] Assigned Surgical Provider 11/04/21 Chidi Puckett MD [address] 106 [place], [place] [address] Assigned Sleep Provider 02/17/22 10/31/23 Harriet Lindsay Personal Advocate & Liaison (PAL) 06/17/22 Aisha Murdock PA-C [facility] [address] [place], [place] [address] Assigned Neuroscience Provider 06/08/22 11/28/23 Lavern Pope MD [address] [facility] [address] [place], [place] [address] Cardiovascular Disease 11/11/22 Lavern Pope MD [address] [facility] [address] [place], [place] [address] Assigned Heart and Vascular Provider 11/16/22 Elmer Paul MD [address] [place], [place] [address] Allergy & Immunology 02/17/23 documented as of this encounter
--- OUTSIDE RECORDS SUMMARY | 2023-12-29 23:13 | XMS_ITS | Encounter Summary ---
Author Name Unknown Organization [facility] Address [facility] [place] [address] Care Team Providers Care Data Steward Name Role Phone Carey Vuong MD Primary Care Provider [phone] Mehreen Scott MD Unavailable [phone] Carey Vuong MD Unavailable Prema Hitchcock PA-C Unavailable [phone] Chidi Pcukett MD Unahenryi lable Harriet Lindsay Unavailable Unavailable Aisha Murdock PA-C Unavailable [phone] Lavern Pope MD Unavailable [phone] Lavern Pope MD Unavailable [phone] Elmer Paul MD Unavailable [phone] Encounter Details Date Type Department Care Team (Late st Contact Info) Description 03/26/2023 [facility] Medical Advice [address] [place] [address] Harriet Lindsay Social History Tobacco Use Types Packs/Day Years [...] 06/17/2022 How often do you attend [facility] or lutheran services? More than 4 times per year [...] Recorded PHQ-2 Score 1 11/19/2022 [facility] of Occupat ional [...] Sex Assigned at Female 12/12/2019 6:30 PM STEAM BOX TENDER Gender Identity Female 12/12/2019 6:30 PM STEAM BOX TENDER Sexual Orientation Straight 04/04/2021 12 :18 PM CDT Travel History Travel Start Travel End [place] 12/06/2023 12/12/2023 documented as of this encounter Plan of Treatment Upcoming Encounters Date Type Department Care Team (Late st Contact Info) Description 03/19/2024 3:30 PM CDT Office Visit [facility] Specialty [facility] [address] [place] [address] [address] [place] [phone] Elmer Paul MD [address] , [address] [place] [address] 04/16/2024 8:30 AM CDT Lab [facility] Heart [facility] [address] [facility] [address] [place] [phone] 04/20/2024 8:45 AM CDT Office Visit [facility] Heart [facility] [address] [facility] [address] [place] [phone] Lavern Pope MD [address] [facility] [address] [place] [address] documented as of this encounter Visit Diagnoses Not on filedocumented in this encounter Additional Health Concerns Assessment Noted Time PHQ-9 Depression Total Score: 6 11/19/20 22 2:05 PM STEAM BOX TENDER documented as of this encounter Care Teams Data Steward Relationship Specialty Start Date End Date Carey Vuong MD [address] [place] [address] [place] [address] PCP - General 01/15/02 Mehreen Scott MD [address] [facility] 100 [place] [phone] extractor puller 12/15/19 [place] [address] [place] [address] [place] [address] Assigned PCP 02/22/21 Prema Hitchcock PA-C [address] [facility] [place] [address] Assigned Surgical Provider 11/04/21 Chidi Puckett MD [address] [facility] 106 [place], [place] [address] Assigned Sleep Provider 02/17/22 10/31/23 Harriet Lindsay Personal Advocate & Liaison (PAL) 06/17/22 Aisha Murdock PA-C [facility] [address] [place] [address] Assigned Neuroscience Provider 06/08/22 11/28/23 Lavern Pope MD [address] [facility] [address] [place] [id number] Cardiovascular Disease 11/11/22 Lavern Pope MD [address] [facility] [address] [place] [address] Assigned Heart and Vascular Provider 11/16/22 Elmer Paul MD [address], [address] [place] [address] Allergy & Immunology 02/17/23 documented as of this encounter
--- OUTSIDE RECORDS SUMMARY | 2023-12-29 23:14 | XMS_ITS | Encounter Summary ---
Author Name Unknown Organization [facility] Address [address] [place] [address] Care Team Providers Care Concrete Mason Name Role Phone Carey Vuong MD Primary Care Provider [phone] Mehreen Scott MD Unavailable [phone] Carey Vuong MD Unavailable [phone] Prema Hitchcock PA-C Unavailable [phone] Chidi Puckett MD Unahenryi lable Harriet Lindsay Unavailable Unavailable Aisha Murdock PA-C Unavailable [phone] Lavern Pope MD Unavailable [phone] Lavern Pope MD Unavailable [phone] Encounter Details Date Type Department Care Team (Latest Contact Info) Description 12/31/2022 Travel Social History Tobacco Use Types Packs/Day [...] do you attend [facility] or rastafari services? More than 4 [...] Answer Date Recorded PHQ-2 Score 1 11/19/2022 [facility]at ional Health - [...] Sex Assigned at Female 12/12/2019 6:30 PM CANVAS BASTER JUMPBASTING Gender Identity Female 12/12/2019 6:30 PM CANVAS BASTER JUMPBASTING Sexual Orientation Straight 04/04/2021 12 :18 PM CDT Travel History Travel Start Travel End [place] 12/06/2023 12/12/2023 COVID-19 Exposure Response Date Recorded In the last 10 days, have yo u been in contact with someone who was confirmed or suspected to have Coronavirus/COVID-19? No / Unsure 12/31/2022 12:36 PM CANVAS BASTER JUMPBASTING documented as of this encounter Plan of Treatment Upcoming Encounters Date Type Department Care Team (Late st Contact Info) Description 03/19/2024 3:30 PM CDT Office Visit [facility] Specialty [address] [place] [phone] Elmer Paul MD [address] [place], [place] [address] 04/16/2024 8:[address] [facility] Heart [address] [place] [phone] 04/20/2024 8:45 AM CDT Office [facility] Heart [facility] [address] [facility] [address] [place] [phone] Lavern Pope MD [address] [facility] 275 [place] [id number] documented as of this encounter Visit Diagnoses Not on filedocumented in this encounter Additional Health Concerns Assessment Noted Time PHQ-9 Depression Total Score: 6 11/19/20 22 2:05 PM CANVAS BASTER JUMPBASTING documented as of this encounter Care Teams Concrete Mason Relationship Specialty Start Date End Date Carey Vuong MD [address] [facility] [place] [address] PCP - General 01/15/02 Mehreen Scott MD [address] [facility] 100 [place] [phone] bending press operator 12/15/19 Carey Vuong MD [address] [facility] [place] [address] Assigned PCP 02/22/21 Prema Hitchcock PA-C [address] [facility] [address] Assigned Surgical Provider 11/04/21 Chidi Puckett MD [address] [facility] 106 [place], [place] [address] Assigned Sleep Provider 02/17/22 10/31/23 Harriet Lindsay Personal Advocate & Liaison (PAL) 06/17/22 Aisha Murdock PA-C [facility] [address] [facility] [place] [address] Assigned Neuroscience Provider 06/08/22 11/28/23 Lavern Pope MD [address] [facility] [address] [place] [address] Cardiovascular Disease 11/11/22 Lavern Pope MD [address] [facility] [address] [place] [address] Assigned Heart and Vascular Provider 11/16/22 documented as of this encounter
--- OUTSIDE RECORDS SUMMARY | 2023-12-29 23:14 | XMS_ITS | Encounter Summary ---
Author Name Unknown Organization [facility] Address [address] [place] [address] Care Team Providers Care Waterproofing Machine Operator Name Role Phone Carey Vuong MD Primary Care Provider [phone] Mehreen Scott MD Unavailable [phone] Carey Vuong MD Unavailable [phone] Prema Hitchcock PA-C Unavailable [phone] Chidi Puckett MD Unahenryi lable Harriet Lindsay Unavailable Unavailable Aisha Murdock PA-C Unavailable [phone] Lavern Pope MD Unavailable [phone] Lavern Pope MD Unavailable [phone] Reason for Visit * Reason Onset Date Comments Call Back 01/07/2023 Medication prior to injection Encounter Details Date Type Department Care Team (Late st Contact Info) Description 01/07/[address] [facility] Pain Management [address] [place] [address] [place] [id number] [place] [address] [place] [address] Call Back (Medication prior to injection) Social History Tobacco Use Types Packs/Day Years [...] week 06/17/2022 How often do you attend [facility] or christianity services? More than 4 [...] Answer Date Recorded PHQ-2 Score 1 11/19/2022 [facility] of [facility]at ionsd Health - Occupational Stress Questionnaire Answer Date [...] Sex Assigned at Female 12/12/2019 6:30 PM PROCESSING CLERK Gender Identity Female 12/12/2019 6:30 PM PROCESSING CLERK Sexual Orientation Straight 04/04/2021 12 :18 PM CDT Travel History Travel Start Travel End [place] 12/06/2023 12/12/2023 COVID-19 Exposure Response Date Recorded In the last 10 days, have yo u been in contact with someone who was confirmed or suspected to have Coronavirus/COVID-19? No / Unsure 01/06/2023 7:42 AM PROCESSING CLERK documented as of this encounter Miscellaneous Notes * Telephone Encounter - Mary Hong RN - 01/07/2023 11:05 AM PROCESSING CLERK Called pt. Advised no need to stop atorvastatin but needs to hold Excedrin for 6 days prior. Mary S. BSN, RN Director Of Clinical Education [facility] Pain Management ESSING CLERK * Telephone Encounter - DarlinmichelleErick carbajal - 01/07/2023 10:59 AM CST [facility] Call Center Phone Message May a detailed message be left on voicemail: yes Reason for Call: Other: Pt has injection scheduled on 01/13/23 and needs o know if she needs to stoptaking her Atorvastatin prior to the injection. Please call pt back at [phone] to advise. Action Taken: Message routed to: Other: [facility] Pain Travel Screening: Not Applicable ESSING CLERK documented in this encounter Plan of Treatment Upcoming Encounters Date Type Department Care Team (Late st Contact Info) Description 03/19/2024 3:30 PM CDT Office Visit [facility] Specialty Clinic [place] [address] [facility] [address] [place] [phone] Elmer Paul MD [address] [facility] [address] [place] [address] 04/16/2024 8:[address] [facility] [address] [facility] [address] [place] [phone] 04/20/2024 8:45 AM CDT Office Visit [facility] [address] [facility] [address] [place] [phone] Lavern Pope MD [address] [facility] [address] [place], [place] [address] documented as of this encounter Visit Diagnoses Not on filedocumented in this encounter Additional Health Concerns Assessment Noted Time PHQ-9 Depression Total Score: 6 11/19/20 22 2:05 PM PROCESSING CLERK documented as of this encounter Care Teams Waterproofing Machine Operator Relationship Specialty Start Date End Date Carey Vuong MD [address] [facility] [place] [address] PCP - General 01/15/02 Mehreen Scott MD [address] [facility] 100 [place] [address] manufacturing engineering director 12/15/19 Carey Vuong MD [address] [facility] [place] [address] Assigned PCP 02/22/21 Prema Hitchcock PA-C [address] [place] [address] Assigned Surgical Provider 11/04/21 Chidi Puckett MD [address] [facility] 106 [place], [place] [address] Assigned Sleep Provider 02/17/22 10/31/23 Harriet Lindsay Personal Advocate & Liaison (PAL) 06/17/22 Aisha Murdock PA-C [facility] [address] [place] [address] Assigned Neuroscience Provider 06/08/22 11/28/23 Lavern Pope MD [address] [place] [address] Cardiovascular Disease 11/11/22 Lavern Pope MD [address] [place], [place] [address] Assigned Heart and Vascular Provider 11/16/22 documented as of this encounter
--- OUTSIDE RECORDS SUMMARY | 2023-12-29 23:14 | XMS_ITS | Encounter Summary ---
Author Name Unknown Organization [facility] Address [address] [place] [address] Care Team Providers Care Tree Killer Name Role Phone Carey Vuong MD Primary Care Provider [phone] Mehreen Scott MD Unavailable Carey Vuong MD Unavailable Prema Hitchcock PA-C Unavailable Chidi Puckett MD Unabrendon lable Harriet Lindsay Unavailable Unavailable Aisha Murdock PA-C Unavailable Lavern Pope MD Unavailable [phone] Lavern Pope MD Unavailable Reason for Visit * Reason Comments Pain Encounter Details Date Type Department Care Team (Late st Contact Info) Description 01/30/2023 4:00 PM PROJECT TECHNICIAN Office Visit [facility] [place] [id number] [place] [address] [address] [place] [address] [place] [address] [address] [place] [phone] Neck pain (Primary Dx); Migraine without aura and without status migrainosus, not intractable; Acute right-sided low back pain without sciatica Social History Tobacco Use Types Packs/Day Years [...] How often do you attend chur or restorationism services? More than 4 times per year 06/17/2022 Do you belong to any clubs o r organizations such as moravian groups, unions, fraternal or athletic groups, or [...] Answer Date Recorded PHQ-2 Score 1 11/19/2022 [facility] [place] of Occupat ional Health - Occupational Stress [...] Sex Assigned at Female 12/12/2019 6:30 PM PROJECT TECHNICIAN Gender Identity Female 12/12/2019 6:30 PM PROJECT TECHNICIAN Sexual Orientation Straight 04/04/2021 12 :18 PM CDT Travel History Travel Start Travel End [place] 12/06/2023 12/12/2023 COVID-19 Exposure Response Date Recorded In the last 10 days, have yo u been in contact with someone who was confirmed or suspected to have Coronavirus/COVID-19? No / Unsure 01/30/2023 2:28 PM PROJECT TECHNICIAN documented as of this encounter Last Filed Vital Signs Vital Sign Reading Time Taken Comments Blood Pressure 102/67 01/30/2023 2:31 PM PROJECT TECHNICIAN Pulse 62 01/30/2023 2:31 PM PROJECT TECHNICIAN Temperature - - Respiratory Rate - - Oxygen Saturation 98% 01/30/2023 2:31 PM PROJECT TECHNICIAN Inhaled Oxygen Concentration - - Weight - - Height - - Body Mass Index - - documented in this encounter Patient Instructions * Patient Instructions* Ernestina Hernandez MA - 01/30/2023 4:00 PM PROJECT TECHNICIAN Clinic Number: [phone] Call with any questions about your care and for scheduling assistance. Calls are returned Friday through Friday between 8 AM and 4:30 PM. We usually get back to you within 2 business days depending on the issue/request. If we are prescribing your medications: For opioid medication refills, call the clinic or send a OffScale message 7 days in advance. Please include: Name of requested medication Name of the pharmacy. For non-opioid medications, call your pharmacy directly to request a refill. Please allow 3-4 days to be processed. Per [place] State Law: All controlled substance prescriptions must be filled within 30 days of being written. For those controlled substances allowing refills, pickup must occur within 30 days of last fill. We believe regular attendance is shannon to your success in our program! Any time you are unable to keep your appointment we ask that you call us at least 24 hours in advance to cancel.This will allow us to offer the appointment time to another patient. Multiple missed appointments may lead to dismissal from the clinic. ECT TECHNICIAN documented in this encounter Progress Notes * Marlene Benoit NP - 01/30/2023 4:00 PM CST Images from the original note were not included. [facility] Date of visit: 01/30/2023 Reason for visit: Follow-Up: Danielle Garza is a 47 year old female with PMH significant for asthma, depression,SVT s/p ablation, knee pain (s/p 12 surgeries) and neck and back pain who is seen for ongoing management of chronic pain. Last seen on 01/06/2023 for initial consult. History: 05/2022: Left gastrocnemius-soleus tear/strain treated @ [facility], resolved 05/30/22: Seen in Neurosurgery Clinic for consult for intermittent aching, sharp, stabbing, spasm like pain that initiates in the left low lumbar region and radiates distally into left buttock with Aisha BIN Murdock. 11/12/22: Atypical Chest Pain and Palpitations, associated with light- headedness, nausea, headache and brain fog. Cardiology thought it was not clearly cardiac in origin, questioned atypical migraines. 11/19/22: severe abdominal pain, negative CT, referred to GI (not seen yet) 12/11/22: UTI 12/23/22: neurology consult; was scheduled at [facility] 1. Low back pain improved after initial [...] her right leg. 2. Neck pain: Cancelled [place] neurology consult, I am sick of going to the doctor. She is hopeful that having a cervical epidural may help some of her nausea, light-headedness, ringing in her ears. Had this starting in October, very random. Episodes where she had profound tremors and shaking, didnot get evaluated, laid down flat and symptoms resolved in 10 minutes. 3. Headaches occur starting in the back [...] Can radiate to shoulders, aching anddull pain. Dizziness when she turns her head, 4-5 times per day. Recommendations from last visit: Cervical OLIVIA ordered. Discussed that it is unlikely that all of her symptoms will resolve with cervical epidural (which is what she is hoping for.) It is likely that her cervical spine could be triggering worsening migranes and their associated symptoms. Encouraged her to complete the neurology evaluation as previously ordered. Will start preventative medication (Topamax) as she has migraines 20 days per month, will hopefully help to decrease her pain symptoms too. Robaxin ordered for muscle spams. Chief Complaint: Chief Complaint Patient presents with ??? Pain Since last seen, Danielle Garza reports: - Neck pain is markedly better after cervical OLIVIA on 01/13/[address] Terry. Did have some minor side effects from steroid that resolved quickly. Telephone notes reviewed. Headaches are much better;maybe has a mild headache once a week now versus everyday. Headaches have been so much less severe.Occasional ringing in her ears/dizziness is markedly better too. Tolerating Topamax, wonders if this is part of feeling better too. - Lower back is much better too. Left leg is no longer bothering her at all. Robaxin was helpful, but not using because pain is no longer severe. Robaxin did help her to get over flare of lower back pain. Stretching was also helpful. - Trying a new pillow, this is okay for back sleeping, not great for side sleeping. - Has slowly started working out again. Did a more strenuous work out and stopped. - Following [facility] diet to a T and has lost 13 pounds. Will be going on a cruise this weekend. Pain description: Location: neck (mild) Quality: aching Duration: intermittent Severity/Intensity (0 = No pain to 10 = Worst pain imaginable) Now: no pain Aggravating factors include: strenuous activities Relieving factors include: lying down, medication, relaxation Current pain medications: Ibuprofen prn Excedrin Migraine prn Topamax 25 mg BID Review of [place] Prescription Monitoring Program (ASSISTANT PROJECT MANAGER): No concern for abuse or misuse of controlled medications based on this report. Viewed on 01/30/2023 PAIN MANAGEMENT TREATMENT HISTORY 1. MEDICATIONS: Opiates: no NSAIDS: Ibuprofen (Advil, Motrin). Medication was unsure Naproxen (Aleve). Medication was unsure, somewhat helpful? Muscle Relaxants: not tried Anti-migraine mediations: Sumatriptan (Imitrex tablets). Medication was not helpful, Excedrin Migrane- somewhat helpful, Topamax - very helpful Anti-depressants: Citalopram & Bupropion helpful for mood Sleep aids: None Anxiolytics: None Neuropathics: not tried Topicals: not tried Adjuvant pain medications: Acetaminophen 2. PHYSICAL THERAPY: Yes at [facility] Summer 2021, was combination of PT and [...] endplate osteophytic ridging and mildbilateral uncovertebral spurring. Wpyx-[id number]-[id number] right neural foraminal stenosis. The left neuralforamen [...] Social History Tobacco Use ??? Smoking status: Some Days Packs/day: 0.00 Years: 10.00 Pack years: 0.00 Types: Cigarettes, Cigars ??? Smokeless tobacco: Never ??? Tobacco comments: smokes a single cigar nightly Vaping Use ??? Vaping Use: Never used Substance Use Topics ??? Alcohol use: Not Currently Alcohol/week: 6.0 standard drinks Types: 6 Glasses of wine per week ??? Drug use: No Social History Social History Narrative . 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 Enjoys working out. Medications: Current Outpatient Medications Medication Sig Dispense Refill ??? albuterol (PROAIR HFA/PROVENTIL HFA/VENTOLIN HFA) 108 (90 Base) MCG/ACT inhaler INHALE 2 PUFFS BY MOUTH EVERY 6 HOURS 18 g 1 ??? sxjtnis-syazelzlfefwa-lpuhqoos (EXCEDRIN MIGRAINE) 250-250-65 MG tablet Take 1 tablet by mouth daily as needed ??? atorvastatin (LIPITOR) 20 MG tablet Take 1 tablet (20 mg) by mouth daily 30 tablet 11 ??? buPROPion (WELLBUTRIN XL) 300 MG 24 hr tablet Take 1 tablet (300 mg) by mouth every morning 90 tablet 3 ??? cetirizine (ZYRTEC) 10 MG tablet Take 1 tablet (10 mg) by mouth every evening 30 tablet 1 ??? citalopram (CELEXA) 40 MG tablet Take 1 tablet (40 mg) by mouth daily 90 tablet 3 ??? fexofenadine (SPARKLE) 180 MG tablet Take 180 mg by mouth daily With zyrtec in the evening 100 tablet 0 ??? fish oil-omega-3 fatty acids 1000 MG capsule Take 1 capsule by mouth daily With sparkle in the morning ??? fluticasone (FLONASE) 50 MCG/ACT nasal spray SHAKE LIQUID AND USE 2 SPRAYS IN EACH NOSTRIL EVERY DAY 48 g 11 ??? ibuprofen (ADVIL/MOTRIN) 400 MG tablet Take 400 mg by mouth every 6 hours as needed ??? ipratropium (ATROVENT) 0.06 % nasal spray Dutton 2 sprays into both nostrils 4 times daily 15 mL10 ??? levalbuterol (XOPENEX HFA) 45 MCG/ACT inhaler INHALE 2 PUFFS INTO THE LUNGS EVERY 4 HOURS NEEDED FOR SHORTNESS OF BREATH OR DIFFICULT BREATHING OR WHEEZING 15 g 0 ??? methocarbamol (ROBAXIN) 500 MG tablet Take 1-2 tablets (500-1,000 mg) by mouth 3 times daily asneeded for muscle spasms 60 tablet 0 ??? Multiple Vitamin (MULTI-VITAMIN) per tablet Take 1 tablet by mouth daily. ??? norethindrone (AYGESTIN) 5 MG tablet Take 5 mg by mouth daily ??? omeprazole (PRILOSEC) [address] capsule Take 1 capsule (40 mg) by mouth daily 90 capsule 4 ??? promethazine (PHENERGAN) 12.5 MG tablet ??? topiramate (TOPAMAX) 25 MG tablet Take 1 tablet (25 mg) by mouth 2 times daily 60 tablet 1 ??? triamcinolone (KENALOG) 0.1 % external cream Apply topically 2 times daily as needed for irritation (up to 1 week at a time.) 15 g 3 Allergies: Allergies Allergen Reactions ??? Penicillins Itching OBJECTIVE Vitals: 01/30/23 1431 BP: 102/67 Pulse: 62 SpO2: 98% Constitutional: Well developed, well nourished, appears stated [...] the lower extremities bilaterally ASSESSMENT AND PLAN: The following recommendations were given to the patient. Diagnosis, treatment options, risks, benefits, and alternatives were discussed, and all questions were answered. The patient expressed understanding of the plan for pain management. I am recommending a multidisciplinary treatment plan to helpthis patient better manage her pain. 1. Neck pain 2. Migraine without aura [...] robaxin if needed for flare of pain. Return to clinic as needed. Marlene Benoit, RECREATION ENGINEER-BC, PMGT-BC, AP-PMN [facility] E[facility] TECHNICIAN documented in this encounter Nursing Notes * Ernestina Hernandez MA - 01/30/2023 4:00 PM CST PEG Score 01/30/2023 PEG Total Score 1 [facility] ECT TECHNICIAN documented in this encounter Plan of Treatment Upcoming Encounters Date Type Department Care Team (Late st Contact Info) Description 03/19/2024 3:30 PM CDT Office Visit [facility] [address] [place] [address] [address] [place] [phone] Elmer Paul MD [address] [facility] [address] [place] [address] 04/16/2024 8:30 AM CDT Lab [facility] [address] [facility] [address] [place] [phone] 04/20/2024 8:45 AM CDT Office Visit [facility] [address] [facility] [address] [place] [phone] Lavern Pope MD [address] [facility] [address] [place] [id number] documented as of this encounter Visit Diagnoses Diagnosis Neck pain- Primary Cervicalgia Migraine without aura and without status migrainosus, not intractable Migraine without aura, without mention of intractable migraine without mention of status migrainosus Acute right-sided low back pain without sciatica documented in this encounter Additional Health Concerns Assessment Noted Time PHQ-9 Depression Total Score: 6 11/19/20 22 2:05 PM PROJECT TECHNICIAN documented as of this encounter Care Teams Tree Killer Relationship Specialty Start Date End Date Carey Vuong MD [address] [facility] [place] [address] PCP - General 01/15/02 Mehreen Scott MD [address] [facility] [address] [place] [phone] artifacts conservator 12/15/19 Carey Vuong MD [address] [facility] [place] [address] Assigned PCP 02/22/21 Prema Hitchcock PA-C [address] [facility] [place] [address] Assigned Surgical Provider 11/04/21 Chidi Puckett MD [address] [place], [place] [address] Assigned Sleep Provider 02/17/22 10/31/23 Harriet Lindsay Personal Advocate & Liaison (PAL) 06/17/22 Aisha Murdock PA-C [facility] [address] [place] [address] Assigned Neuroscience Provider 06/08/22 11/28/23 Lavern Pope MD [address] [facility] [address] [place] [address] Cardiovascular Disease 11/11/22 Lavern Pope MD [address] [facility] [address] [place] [address] Assigned Heart and Vascular Provider 11/16/22 documented as of this encounter
--- OUTSIDE RECORDS SUMMARY | 2023-12-29 23:14 | XMS_ITS | Encounter Summary ---
Author Name Unknown Organization [facility] Address [address] [place] [address] Care Team Providers Care Bioinformatics Scientist Name Role Phone Carey Vuong MD Primary Care Provider [phone] Mehreen Scott MD Unavailable [phone] Carey Vuong MD Unavailable [phone] Prema Hitchcock PA-C Unavailable Chidi Puckett MD Unahenryi lable Harriet Lindsay Unavailable Unavailable Aisha Murdock PA-C Unavailable [phone] Lavern Pope MD Unavailable [phone] Lavern Pope MD Unavailable [phone] Encounter Details Date Type Department Care Team (Latest Contact Info) Description 01/13/2023 Travel Social History Tobacco Use Types Packs/Day [...] 06/17/2022 How often do you attend [facility] or yazidism services? More than 4 [...] Answer Date Recorded PHQ-2 Score 1 11/19/2022 [facility] of Occupat ional Health [...] place to sleep or slept in a penitentiary (including now)? No 06/17/2022 Education Answer Date Recorded What is the highest level of school you have completed or the highest degree you have received? Some college, no degree 12/12/2019 Sex and Gender Information Value Date Recorded Sex Assigned at Female 12/12/2019 6:30 PM COMMUNITY DEVELOPMENT AIDE Gender Identity Female 12/12/2019 6:30 PM COMMUNITY DEVELOPMENT AIDE Sexual Orientation Straight 04/04/2021 12 :18 PM CDT Travel History Travel Start Travel End [place] 12/06/2023 12/12/2023 COVID-19 Exposure Response Date Recorded In the last 10 days, have yo u been in contact with someone who was confirmed or suspected to have Coronavirus/COVID-19? No / Unsure 01/13/2023 8:56 AM COMMUNITY DEVELOPMENT AIDE documented as of this encounter Plan of Treatment Upcoming Encounters Date Type Department Care Team (Late st Contact Info) Description 03/19/2024 3:30 PM CDT Office Visit [facility] Specialty [address] [place] [phone] Elmer Paul MD [address] [place], [place] [phone] 04/16/2024 8:30 AM CDT Lab [facility] Heart [address] [place] [phone] 04/20/2024 8:45 AM CDT Office Visit [facility] [address] [facility] [address] [place] [phone] Lavern Pope MD [address] [facility] [address] [place] [id number] documented as of this encounter Visit Diagnoses Not on filedocumented in this encounter Additional Health Concerns Assessment Noted Time PHQ-9 Depression Total Score: 6 11/19/20 22 2:05 PM COMMUNITY DEVELOPMENT AIDE documented as of this encounter Care Teams Bioinformatics Scientist Relationship Specialty Start Date End Date Carey Vuong MD [address] [facility] [place] [address] PCP - General 01/15/02 Mehreen Scott MD [address] [facility] 100 [place] [phone] clothes model 12/15/19 Carey Vuong MD [address] [facility] [place] [address] Assigned PCP 02/22/21 Prema Hitchcock PA-C [address] [facility] [place] [address] Assigned Surgical Provider 11/04/21 Chidi Puckett MD [address] [facility] [address] [place], [place] [address] Assigned Sleep Provider 02/17/22 10/31/23 Harriet Lindsay Personal Advocate & Liaison (PAL) 06/17/22 Aisha Murdock PA-C [facility] [address] [facility], [place] [address] Assigned Neuroscience Provider 06/08/22 11/28/23 Lavern Pope MD [address] [facility] [address] [place] [id number] Cardiovascular Disease 11/11/22 Lavern Pope MD [address] [facility] [address] [place] [id number] Assigned Heart and Vascular Provider 11/16/22 documented as of this encounter
--- OUTSIDE RECORDS SUMMARY | 2023-12-29 23:14 | XMS_ITS | Encounter Summary ---
Author Name Unknown Organization [facility] Address [address] [place] [address] Care Team Providers Care Extrusion Die Repairer Name Role Phone Carey Vuong MD Primary Care Provider [phone] Mehreen Scott MD Unavailable [phone] Carey Vuong MD Unavailable Prema Hitchcock PA-C Unavailable [phone] Chidi Puckett MD Unavai lable Harriet Lindsay Unavailable Unavailable Aisha Murdock PA-C Unavailable [phone] Lavern Pope MD Unavailable [phone] Lavern Pope MD Unavailable [phone] Elmer Paul MD Unavailable [phone] Elmer Paul MD Unavailable [phone] Batool Torres NP Unavailable Marlene Benoit NP Unavailable [phone] Batool Torres NP Unavailable Encounter Details Date Type Department Care Team (Late st Contact Info) Description 12/30/2022 [facility] Medical Advice [facility] Neuro[facility] [address] [place] [address] Alka Crenshaw, RN Social History Tobacco Use Types Packs/Day Years [...] How often do you attend chur or scientology services? More than 4 times per year 06/17/2022 Do you belong to any clubs o r organizations such as zoroastrian groups, unions, fraternal or athletic groups, or [...] Answer Date Recorded PHQ-2 Score 1 11/19/2022 [facility] [place] of Occupat ional Health - Occupational Stress [...] Sex Assigned at Female 12/12/2019 6:30 PM FIELD MANAGER Gender Identity Female 12/12/2019 6:30 PM FIELD MANAGER Sexual Orientation Straight 04/04/2021 12 :18 PM CDT Travel History Travel Start Travel End [place] 12/06/2023 12/12/2023 COVID-19 Exposure Response Date Recorded In the last 10 days, have yo u been in contact with someone who was confirmed or suspected to have Coronavirus/COVID-19? No / Unsure 12/31/2022 12:36 PM FIELD MANAGER documented as of this encounter Plan of Treatment Upcoming Encounters Date Type Department Care Team (Late st Contact Info) Description 03/19/2024 3:30 PM CDT Office Visit [facility] [place] [address] [facility] [address] [place] [phone] Elmer Paul MD [address] [place] [address] 04/16/2024 8:30 AM CDT Lab [facility] Heart [facility] [address] [facility] [address] [place] [phone] 04/20/2024 8:45 AM CDT Office Visit [facility] Heart [facility] [address] [facility] [address] [place] [phone] Lavern Pope MD [address] [facility] [address] [place] [address] documented as of this encounter Visit Diagnoses Not on filedocumented in this encounter Additional Health Concerns Assessment Noted Time PHQ-9 Depression Total Score: 6 11/19/20 22 2:05 PM FIELD MANAGER documented as of this encounter Care Teams Extrusion Die Repairer Relationship Specialty Start Date End Date Carey Vuong MD [address] [place] [address] [place] [address] PCP - General 01/15/02 Mehreen Scott MD [address] [facility] [address] [place] [phone] sheet sorter 12/15/19 Carey Vuong MD [address] [facility] [place] [address] Assigned PCP 02/22/21 Prema Hitchcock PA-C [address] [place] [address] Assigned Surgical Provider 11/04/21 Chidi Puckett MD [address] [place] [address] Assigned Sleep Provider 02/17/22 10/31/23 Harriet Lindsay Personal Advocate & Liaison (PAL) 06/17/22 Aisha Murdock PA-C [facility] [address] [place] [address] Assigned Neuroscience Provider 06/08/22 11/28/23 Lavern Pope MD [address] [facility] [address] [place] [address] Cardiovascular Disease 11/11/22 Lavern Pope MD [address] [facility] [address] [place] [address] Assigned Heart and Vascular Provider 11/16/22 Elmer Paul MD [address] [place] [address] Allergy & Immunology 02/17/23 Elmer Paul MD [address] [facility] [place] [id number] Assigned Allergy Provider 04/26/23 Btaool Torres, ZENOBIA [address] [facility] [place] [address] Nurse Practitioner Pulmonary Disease 08/11/23 [place] [address] [place] [address] Nurse Practitioner Nurse Practitioner 10/29/23 Batool Torres NP [facility] [place] [address] Assigned Pulmonology Provider 12/25/23 documented as of this encounter
--- OUTSIDE RECORDS SUMMARY | 2023-12-29 23:14 | XMS_ITS | Encounter Summary ---
Author Name Unknown Organization [place] Address [address] [place] [address] Care Team Providers Care Lithographing Machine Operator Name Role Phone Carey Vuong MD Primary Care Provider [phone] Mehreen Scott MD Unavailable [phone] Carey Vuong MD Unavailable [phone] Prema Hitchcock PA-C Unavailable [phone] Chidi Puckett MD Unabrendon lable Harriet Lindsay Unavailable Unavailable Aisha Murdock PA-C Unavailable [phone] Lavern Pope MD Unavailable [phone] Lavern Pope MD Unavailable [phone] Reason for Visit * Reason Onset Date Comments Procedure 01/07/2023 Cervical OLIVIA C7- T1 Interlaminar Encounter Details Date Type Department Care Team (Late st Contact Info) Description 01/07/[facility] [place] [address] [facility] [address] [place] [address] [facility] Procedure (Cervical OLIVIA C7-T1 Interlaminar ) Social History Tobacco Use Types Packs/Day [...] attend [facility] or mormonism services? More than 4 times per year 06/17/2022 Do you belong to any clubs o r organizations such as alevism groups, unions, fraternal or athletic groups, or [...] Answer Date Recorded PHQ-2 Score 1 11/19/2022 [facility] of Occupat [...] Sex Assigned at Female 12/12/2019 6:30 PM UTILITY ENGINEER Gender Identity Female 12/12/2019 6:30 PM UTILITY ENGINEER Sexual Orientation Straight 04/04/2021 12 :18 PM CDT Travel History Travel Start Travel End [place] 12/06/2023 12/12/2023 COVID-19 Exposure Response Date Recorded In the last 10 days, have yo u been in contact with someone who was confirmed or suspected to have Coronavirus/COVID-19? No / Unsure 01/06/2023 7:42 AM UTILITY ENGINEER documented as of this encounter Miscellaneous Notes * Telephone Encounter - Karyn Waller - 01/07/2023 9:29 AM CST Screening Questions for Radiology Injections: Injection to be done at which interventional clinic site? [facility] Procedure ordered by Marlene Benoit NP Procedure ordered? Cervical OLIVIA C7-T1 Interlaminar ??? Transforaminal Cervical OLIVIA - [facility] to [facility] [place] - No Community Site providers perform this procedure What insurance would patient like us to bill for this procedure? [facility] ?? Worker's comp or MVA (motor vehicle accident) -Any injection DO NOT SCHEDULE and route to Lady Ackerman. ?? [employer] insurance - For SI joint injections, DO NOT SCHEDULE and route to Mary Monroe. ?? ALL BCBS, Hum[employer] and [employer] CIGNA - DO NOT SCHEDULE and route to Mary Monroe ?? MEDICA- facet joint injections, route to Mary Monroe ?? IF SCHEDULING IN [place] PLEASE SCHEDULE AT LEAST 7-10 BUSINESS DAYS OUT SO A PA CAN BE OBTAINED Is an gear room keeper needed? 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 (Review Grid) YES: Any chance of ? NO If YES, do NOT schedule and route to registered nurse float pool - Dr. Price route to Michelle Shepherd and PM&R Nurse [[id number]] Is patient actively being treated for cancer or immunocompromised? No If YES, do NOT schedule and route to registered nurse float pool/ Dr. Price's Team Does the patient have a bleeding or clotting disorder? No ?? If YES, okay to schedule AND route to RN nurse rocael/ Dr. Price's Team ?? (For any patients with platelet count <100, RN must forward to provider) Is patient taking any Blood Thinners OR Antiplatelet medication? No If hold needed, do NOT schedule, route to registered nurse float pool/ Dr. Price's Team ??? Examples: o Blood Thinners: (Coumadin, Warfarin, Jantoven, Pradaxa, Xarelto, Eliquis, Edoxaban, Enoxaparin, Lovenox, Heparin, Arixtra, Fondaparinux or Fragmin) o Antiplatelet Medications: (Plavix, Brilinta or Effient) Is patient taking any aspirin products (includes Excedrin and Fiorinal)? No ?? If more than 325mg/day, OK to schedule; Instruct Pt to decrease to less than 325 mg for 7 days AND route to registered nurse float pool/ Dr. Price's Team ?? For CERVICAL procedures, [...] NOT SCHEDULE, route to RANDALL cote/ Dr. Price's Team ??? Allergies: Penicillins Does patient have [...] If no route to [facility] Cote/ Dr. Price's Team ?? If yes, where was the MRI/CT done? [facility] ?? Refer to PACS Transmissions list [...] patient have any questions? NO Karyn Waller [facility] ITY ENGINEER documented in this encounter Plan of Treatment Upcoming Encounters Date Type Department Care Team (Late st Contact Info) Description 03/19/2024 3:30 PM CDT Office Visit [facility] Specialty [facility] [address] [facility] [address] [place] [phone] Elmer Paul MD [address] [facility] [address] [place] [address] 04/16/2024 8:30 AM CDT Lab [facility] Heart [facility] [address] [facility] [address] [place] [phone] 04/20/2024 8:45 AM CDT Office Visit [facility] Heart [facility] [address] [facility] [address] [place] [phone] Lavern Pope MD [address] [facility] 275 [place], [place] [address] documented as of this encounter Visit Diagnoses Not on filedocumented in this encounter Additional Health Concerns Assessment Noted Time PHQ-9 Depression Total Score: 6 11/19/20 22 2:05 PM UTILITY ENGINEER documented as of this encounter Care Teams Lithographing Machine Operator Relationship Specialty Start Date End Date Carey Vuong MD [address] [place] [address] [place] [address] PCP - General 01/15/02 Mehreen Scott MD [address] [facility] 100 [place] [phone] trouble operator 12/15/19 Carey Vuong MD [address] [place] [address] [place] [address] Assigned PCP 02/22/21 Prema Hitchcock PA-C [address] [facility] [place] [address] Assigned Surgical Provider 11/04/21 Chidi Puckett MD [address] [facility] 106 [place] [address] Assigned Sleep Provider 02/17/22 10/31/23 Harriet Lindsay Personal Advocate & Liaison (PAL) 06/17/22 Aisha Murdock PA-C [facility] [address] [facility] [place] [address] Assigned Neuroscience Provider 06/08/22 11/28/23 Lavern Pope MD [address] [facility] [address] [place] [address] Cardiovascular Disease 11/11/22 Lavern Pope MD [address] [facility] [address] [place] [address] Assigned Heart and Vascular Provider 11/16/22 documented as of this encounter
--- OUTSIDE RECORDS SUMMARY | 2023-12-29 23:14 | XMS_ITS | Encounter Summary ---
Author Name Unknown Organization [place] Address [address] [place] [address] Care Team Providers Care Lawyer Criminal Name Role Phone Carey Vuong MD Primary Care Provider [phone] Mehreen Scott MD Unavailable [phone] Carey Vuong MD Unavailable [phone] Prema Hitchcock PA-C Unavailable [phone] Chidi Puckett MD Unahenryi lable Harriet Lindsay Unavailable Unavailable Aisha Murdock PA-C Unavailable [phone] Lavern Pope MD Unavailable [phone] Lavern Pope MD Unavailable [phone] Encounter Details Date Type Department Care Team (Latest Contact Info) Description 01/06/2023 Travel Social History Tobacco Use Types Packs/Day [...] you attend [facility] or yazidi services? More than 4 times per year 06/17/2022 Do you belong to any clubs o r organizations such as quaker groups, unions, fraternal or athletic groups, or [...] Answer Date Recorded PHQ-2 Score 1 11/19/2022 [facility] of Occupat ional Health - Occupational [...] in a long-term (including now)? No 06/17/2022 Education Answer Date Recorded What is the highest level of school you have completed or the highest degree you have received? Some college, no degree 12/12/2019 Sex and Gender Information Value Date Recorded Sex Assigned at Female 12/12/2019 6:30 PM GATE PERSON Gender Identity Female 12/12/2019 6:30 PM GATE PERSON Sexual Orientation Straight 04/04/2021 12 :18 PM CDT Travel History Travel Start Travel End [place] 12/06/2023 12/12/2023 COVID-19 Exposure Response Date Recorded In the last 10 days, have yo u been in contact with someone who was confirmed or suspected to have Coronavirus/COVID-19? No / Unsure 01/06/2023 7:42 AM GATE PERSON documented as of this encounter Plan of Treatment Upcoming Encounters Date Type Department Care Team (Late st Contact Info) Description 03/19/2024 3:30 PM CDT Office Visit [facility] Specialty [address] [place] [phone] Elmer Paul MD [address] [place], [place] [address] 04/16/2024 8:30 AM CDT Lab [facility] Heart [address] [place] [phone] 04/20/2024 8:45 AM CDT Office Visit [facility] Heart [facility] [address] [facility] [address] [place] [phone] Lavern Pope MD [address] [facility] [address] [place] [id number] documented as of this encounter Visit Diagnoses Not on filedocumented in this encounter Additional Health Concerns Assessment Noted Time PHQ-9 Depression Total Score: 6 11/19/20 22 2:05 PM GATE PERSON documented as of this encounter Care Teams Lawyer Criminal Relationship Specialty Start Date End Date Carey Vuong MD [address] [facility] [place] [address] PCP - General 01/15/02 Mehreen Scott MD [address] [facility] 100 [place] [phone] lie detector operator 12/15/19 Carey Vuong MD [address] [facility] [place] [address] Assigned PCP 02/22/21 Prema Hitchcock PA-C [address] [facility] [place] [address] Assigned Surgical Provider 11/04/21 Chidi Puckett MD [address] [facility] 106 [place], [place] [address] Assigned Sleep Provider 02/17/22 10/31/23 Harriet Lindsay Personal Advocate & Liaison (PAL) 06/17/22 Aisha Murdock PA-C [facility] [address] [facility] [place] [address] Assigned Neuroscience Provider 06/08/22 11/28/23 Lavern Pope MD [address] [facility] [address] [place] [id number] Cardiovascular Disease 11/11/22 Lavern Pope MD [address] [facility] [address] [place] [address] Assigned Heart and Vascular Provider 11/16/22 documented as of this encounter
--- OUTSIDE RECORDS SUMMARY | 2023-12-29 23:14 | XMS_ITS | Encounter Summary ---
Author Name Unknown Organization [facility] [place] Address [address] [place] [address] Care Team Providers Care Agricultural Research Technician Name Role Phone Carey Vuong MD Primary Care Provider [phone] Mehreen Scott MD Unavailable [phone] Carey Vuong MD Unavailable [phone] Prema Hitchcock PA-C Unavailable [phone] Chidi Puckett MD Unavai lable Harriet Lindsay Unavailable Unavailable Aisha Murdock PA-C Unavailable [phone] Lavern Pope MD Unavailable [phone] Lavren Pope MD Unavailable [phone] Elmer Paul MD Unavailable [phone] Elmer Paul MD Unavailable [phone] Batool Torres NP Unavailable Marlene Benoit NP Unavailable [phone] Batool Torres NP Unavailable [phone] Reason for Visit * Reason Onset Date Comments Patient Request 01/13/2023 Request for an i njection Encounter Details Date Type Department Care Team (Late st Contact Info) Description 01/13/2023 Telephone [employer] [facility] [place] [address] [facility] [address] [place], [place] [address] [place] [address] [place] [address] Patient Request (Request for an injection) Social History Tobacco Use Types Packs/Day [...] How often do you attend chur or jewish services? More than 4 times [...] Answer Date Recorded PHQ-2 Score 1 11/19/2022 [facility] [place] of Occupat ional Health - Occupational Stress [...] Sex Assigned at Female 12/12/2019 6:30 PM MORTAR MAN Gender Identity Female 12/12/2019 6:30 PM MORTAR MAN Sexual Orientation Straight 04/04/2021 12 :18 PM CDT Travel History Travel Start Travel End [place] 12/06/2023 12/12/2023 COVID-19 Exposure Response Date Recorded In the last 10 days, have yo u been in contact with someone who was confirmed or suspected to have Coronavirus/COVID-19? No / Unsure 01/13/2023 8:56 AM MORTAR MAN documented as of this encounter Miscellaneous Notes * Telephone Encounter - Christina Terry MD - 01/14/2023 12:56 PM CST If things done improve she should call back, however, this sounds like a normal steroid reaction abdirizak injection. Christina Terry MD AR MAN * Telephone Encounter - Mary Hong RN - 01/14/2023 10:16 AM MORTAR MAN Called pt. Advised per below. Reports that front of left thigh is going numb. Worsens if stands toolong. Also has sciatic pain on the right side. Advised that as these are new low back pain symptoms that would need assessment and that follow up for KELLY and low back would be pertinent. Scheduledfor follow up to discuss injection effectiveness and new pain symptoms. Pt also states that woke up this morning and has some generalized mild itching. No hives, no trouble breathing or swallowing. States that developed fever after injection. Has not taken temp. Discussed fever vs flushing and timing of fever with injection is generally not immediate. Pt states that islikely flushing. Woke up with MOSER. States that current MOSER is similar to MOSER that she always has. Has not been able to assess if is positional and is at work. States will try this later and call back if finds that MOSER is positional. Took ibuprofen not helpful. No other red flags. Discussed flushing as general SE of steroid and should lessen in a few days. Will monitor itching, has not had issue with contrast/steroid/anesthetic in the past. Aware if symptoms worsen to call clinic back to discuss. Advised that would route for review and contact back with any concerns/recommendations Mary GÓMEZ, RN Mold Cutting Machine Operator [facility] AR MAN * Telephone Encounter - Marlene Benoit NP - 01/14/2023 9:17 AM MORTAR MAN Ideally, I would like to see her back after the cervical epidural to re-evaluate her symptoms before progressing to another kd, even though it is in her lower back. Marlene Benoit NP AR MAN * Telephone Encounter - Lucia Edmond - 01/13/2023 3:37 PM CST [facility] Phone Message May a detailed message be left on voicemail: yes Reason for Call: Other: Patient called stating she forgot to ask for an order for a back injection,stating her back pain is still bothering her. She is requesting an order to schedule. Please review. Action Taken: Other: [facility] Travel Screening: Not Applicable AR MAN documented in this encounter Plan of Treatment Upcoming Encounters Date Type Department Care Team (Late st Contact Info) Description 03/19/2024 3:30 PM CDT Office Visit [facility] Specialty [facility] [address] [facility] [address] [place] [phone] Elmer Paul MD [address] [facility] 200 [place] [address] 04/16/2024 8:30 AM CDT Lab [facility] Heart [facility] [address] [facility] [address] [place] [phone] 04/20/2024 8:45 AM CDT Office Visit [facility] [address] [facility] [address] [place] [phone] Lavern Pope MD [address] [facility] [address] [place] [address] documented as of this encounter Visit Diagnoses Not on filedocumented in this encounter Additional Health Concerns Assessment Noted Time PHQ-9 Depression Total Score: 6 11/19/20 22 2:05 PM MORTAR MAN documented as of this encounter Care Teams Agricultural Research Technician Relationship Specialty Start Date End Date Carey Vuong MD [address] [facility] [place] [address] PCP - General 01/15/02 Mehreen Scott MD [address] [facility] 100 [place] [phone] general helper 12/15/19 Carey Vuong MD [address] [facility] [place] [address] Assigned PCP 02/22/21 Prema Hitchcock PA-C [address] [facility] [place] [address] Assigned Surgical Provider 11/04/21 Chidi Puckett MD [address] [facility] 106 [place], [place] [address] Assigned Sleep Provider 02/17/22 10/31/23 Harriet Lindsay Personal Advocate & Liaison (PAL) 06/17/22 Aisha Murdock PA-C [facility] [address]45 [facility] [place] [address] Assigned Neuroscience Provider 06/08/22 11/28/23 Lavern Pope MD [address] [facility] [address] [place] [address] Cardiovascular Disease 11/11/22 Lavern Pope MD [address] [place] [address] Assigned Heart and Vascular Provider 11/16/22 Elmer Paul MD [address] [place] [address] Allergy & Immunology 02/17/23 Elmer Paul MD [address] [place] [address] Assigned Allergy Provider 04/26/23 Batool Torres, ZENOBIA [address] [place] [address] Nurse Practitioner Pulmonary Disease 08/11/23 [place] [address] [place] [address] Nurse Practitioner Nurse Practitioner 10/29/23 Batool Torres NP [address] [place] [address] Assigned Pulmonology Provider 12/25/23 documented as of this encounter
--- OUTSIDE RECORDS SUMMARY | 2023-12-29 23:14 | XMS_ITS | Encounter Summary ---
Author Name Unknown Organization [place] Address [address] [place] [address] Care Team Providers Care Timber Girdler Name Role Phone Carey Vuong MD Primary Care Provider [phone] Mehreen Scott MD Unavailable [phone] Carey Vuong MD Unavailable [phone] Prema Hitchcock PA-C Unavailable [phone] Chidi Puckett MD Unavai lable Harriet Lindsay Unavailable Unavailable Aisha Murdock PA-C Unavailable [phone] Lavern Pope MD Unavailable [phone] Lavern Pope MD Unavailable [phone] Elmer Paul MD Unavailable [phone] Elmer Paul MD Unavailable [phone] Batool Torres NP Unavailable Marlene Benoit NP Unavailable [phone] Batool Torres NP Unavailable [phone] Encounter Details Date Type Department Care Team (Late st Contact Info) Description 12/11/2022 MyC Medical Advice [facility] [address] [facility] [address] [place] [address] Carey Vuong MD [address] [facility] [place] [address] Social History Tobacco Use Types Packs/Day Years [...] week 06/17/2022 How often do you attend [facility] or voodoo services? More than 4 times per year [...] Answer Date Recorded PHQ-2 Score 1 11/19/2022 [facility] of Occupat ional Health - Occupational Stress [...] Sex Assigned at Female 12/12/2019 6:30 PM OUTSIDE PROPERTY AGENT Gender Identity Female 12/12/2019 6:30 PM OUTSIDE PROPERTY AGENT Sexual Orientation Straight 04/04/2021 12 :18 PM CDT Travel History Travel Start Travel End [place] 12/06/2023 12/12/2023 COVID-19 Exposure Response Date Recorded In the last 10 days, have yo u been in contact with someone who was confirmed or suspected to have Coronavirus/COVID-19? No / Unsure 12/13/2022 7:39 AM OUTSIDE PROPERTY AGENT documented as of this encounter Plan of Treatment Upcoming Encounters Date Type Department Care Team (Late st Contact Info) Description 03/19/2024 3:30 PM CDT Office Visit [facility] [place] [address] [facility] [address] [place] [phone] Elmer Paul MD [address] [facility] [address] [place] [phone] 04/16/2024 8:30 AM CDT Lab [facility] [address] [facility] [address] [place] [phone] 04/20/2024 8:45 AM CDT Office Visit [facility] [address] [facility] [address] [place] [phone] Lavern Pope MD [address] [facility] [address] [place] [id number] documented as of this encounter Visit Diagnoses Not on filedocumented in this encounter Additional Health Concerns Assessment Noted Time PHQ-9 Depression Total Score: 6 11/19/20 22 2:05 PM OUTSIDE PROPERTY AGENT documented as of this encounter Care Teams Timber Girdler Relationship Specialty Start Date End Date Carey Vuong MD [address] [place] [address] [place] [address] PCP - General 01/15/02 Mehreen Scott MD [address] [place] [address] [place] [phone] fan blade truer 12/15/19 Carey Vuong MD [address] [place] [address] [place] [address] Assigned PCP 02/22/21 Prema Hitchcock PA-C [address] [facility] [place] [address] Assigned Surgical Provider 11/04/21 Chidi Puckett MD [address] [facility] [address] [place], [place] [address] Assigned Sleep Provider 02/17/22 10/31/23 Harriet Lindsay Personal Advocate & Liaison (PAL) 06/17/22 Aisha Murdock PA-C [facility] [address] [facility] [place] [address] Assigned Neuroscience Provider 06/08/22 11/28/23 Lavern Pope MD [address] [facility] [address] [place], [place] [address] Cardiovascular Disease 11/11/22 Lavern Pope MD [address] [facility] [address] [place], [place] [address] Assigned Heart and Vascular Provider 11/16/22 Elmer Paul MD [address] [place] [address] Allergy & Immunology 02/17/23 Elmer Paul MD [address] [place] [address] Assigned Allergy Provider 04/26/23 Batool Torres, TOWER SUPERVISOR [address] [place] [address] Nurse Practitioner Pulmonary Disease 08/11/23 [place] [address] [place] [address] Nurse Practitioner Nurse Practitioner 10/29/23 Batool Torres NP [address] [place] [address] Assigned Pulmonology Provider 12/25/23 documented as of this encounter
--- OUTSIDE RECORDS SUMMARY | 2023-12-29 23:14 | XMS_ITS | Encounter Summary ---
Author Name Unknown Organization [facility] Address [address] [place] [id number] Care Team Providers Care Veterinary Laboratory Technician Name Role Phone Carey Vuong MD Primary Care Provider [phone] Mehreen Scott MD Unavailable [phone] Carey Vuong MD Unavailable [phone] Prema Hitchcock PA-C Unavailable [phone] Chidi Puckett MD Unavai lable Harriet Lindsay Unavailable Unavailable Aisha Murdock PA-C Unavailable [phone] Lavern Pope MD Unavailable [phone] Lavern Pope MD Unavailable [phone] Reason for Referral * Clinically Administered Medications (Routine) - Closed Specialty Diagnoses / Procedures Referred By Contdhara t Referred To Contact Diagnoses UNKNOWN [place] [address] [place] [address] Referral ID Status Reason Start Date Expiration Date Visits Re quested Visits Authorized [id number] Closed 01/13/2023 01/13/2024 1 1 ALS COORDINATOR Reason for Visit * Reason Comments Pain * Consultation (Routine: Next available opening) - Pending Review Specialty Diagnoses / Procedures Referred By Pinky carbajal Referred To Contact Diagnoses Spondylosis of cervical region without myelopathy [place] [address] [place] [address] [facility] [address] [place] [address] Referral ID Status Reason Start Date Expiration Date V isits Requested Visits Authorized [id number] Pending Review 01/06/2023 01/06/2024 1 1 Encounter Details Date Type Department Care Team (Latest Contact Info) Description 01/13/2023 3:15 PM APPEALS COORDINATOR Radiology Injection Office Visit [facility] Pain Management [address] [place], [place] [address] [place] [address] [place] [address] [place] [address] [place] [address] Cervical radiculopathy (Primary Dx); Spondylosis of cervical region without myelopathy or radiculopathy Social History Tobacco Use Types Packs/Day Years Used Date Smoking Tobacco: Some Days Cigarettes 0 10 Cigars Smokeless Tobacco: Never Tobacco Cessation:Ready to Q uit: No; Counseling Given: No Comments:smokes a single cigar nightly [...] often do you attend chur ch or congregation services? More than 4 times per year 06/17/2022 Do you belong to any clubs o r organizations such as taoism groups, unions, fraternal or athletic groups, or [...] Answer Date Recorded PHQ-2 Score 1 11/19/2022 [facility] [...] Sex Assigned at Female 12/12/2019 6:30 PM APPEALS COORDINATOR Gender Identity Female 12/12/2019 6:30 PM APPEALS COORDINATOR Sexual Orientation Straight 04/04/2021 12 :18 PM CDT Travel History Travel Start Travel End [place] 12/06/2023 12/12/2023 COVID-19 Exposure Response Date Recorded In the last 10 days, have yo u been in contact with someone who was confirmed or suspected to have Coronavirus/COVID-19? No / Unsure 01/13/2023 8:56 AM APPEALS COORDINATOR documented as of this encounter Last Filed Vital Signs Vital Sign Reading Time Taken Comments Blood Pressure 109/73 01/13/2023 3:31 PM APPEALS COORDINATOR Pulse 60 01/13/2023 3:31 PM APPEALS COORDINATOR Temperature - - Respiratory Rate 95 01/13/2023 3:31 PM APPEALS COORDINATOR Oxygen Saturation 98% 01/13/2023 3:08 PM APPEALS COORDINATOR Inhaled Oxygen Concentration - - Weight - - Height - - Body Mass Index - - documented in this encounter Patient Instructions * Patient Instructions* Yazmin Mendez RN - 01/13/2023 3:15 PM APPEALS COORDINATOR Formatting of this note might be different from the [facility] Procedure Discharge Instructions Today you saw: Dr. Eden Linn Your procedure: Epidural steroid injection Medications used: Lidocaine (anesthetic) Dexamethasone (steroid) Omnipaque (contrast) Normal Saline Be cautious as numbness and/or weakness [...] pain center line during work hours at [phone] on-call physician after hours at [phone]: -Fever over 100 degree F -Swelling, bleeding, redness, drainage, warmth at the injection site -Progressive weakness or numbness in your legs or arms -Loss of bowel or bladder function -Unusual headache that is not relieved by Tylenol or your regular headache medication -Unusual new onset of pain that is not improving ALS COORDINATOR documented in this encounter Progress Notes * Eden Linn MD - 01/13/2023 3:15 PM CST Images from the original note were not included. [facility] - Procedure Note Date of Visit: 01/13/2023 Procedure performed: C7-T1 interlaminar epidural steroid injection with fluoroscopic guidance Diagnosis: Cervical spondylosis; Cervical radiculitis/radiculopathy [employer] Support: Eden Linn MD Anesthesia: none Indications: Danielle Garza is a 47 year old female who is seen at the request of Marlene Benoit CNP for cervical epidural steroid injection. The patient describes headaches and neck pain withradiation into the left arm. The patient has been exhibiting symptoms consistent with cervical intraspinal inflammation and radiculopathy. Symptoms have been persistent, disabling, and intermittentlysevere. The patient reports minimal improvement with conservative treatment, including previous lumbar OLIVIA's, PT and medications. Cervical MRI was done on 09/13/2022 which showed: FINDINGS: Normal vertebral body heights. Straightening of the normal cervical lordosis. Mild presumably Modic type I degenerative endplate signal changes at C3-C4. Bone marrow signal otherwise appears normal. No abnormal spinal cord signal. Mild scattered degenerative changes of facet joints. The visualized paraspinous soft tissues appear unremarkable. ?? Several analysis: Cranial vertebral junction/C1-C2: Unremarkable. ?? C2-C3: Normal disc height. No herniation. No spinal canal or neural foraminal stenosis. ?? C3-C4: Moderate disc height loss. Symmetric disc bulge with posterior endplate osteophytic ridging. No significant spinal canal stenosis. No significant neural foraminal stenosis. ?? C4-C5: Normal disc height. Symmetric disc bulge with posterior endplate osteophytic ridging. Right-sided uncovertebral spurring. No spinal canal stenosis. Mild to moderate/moderate right neural foraminal stenosis. Mild left neural foraminal stenosis. ?? C5-C6: Mild disc height loss. Symmetric disc bulge. Posterior endplate osteophytic ridging and mild bilateral uncovertebral spurring. Bzwf-ty-gnlcttea right neural foraminal stenosis. The left neural foramen appears patent. ?? C6-C7: Normal disc height. Small right central disc protrusion. The disc protrusion mildly indents the ventral aspect of the thecal sac and contacts the ventral margin of the spinal cord without significant cord deformity. Mild spinal canal stenosis. No significant neural foraminal stenosis. ?? C7-T1: Normal disc height. No herniation. No spinal canal or neural foraminal stenosis. IMPRESSION: 1. Multilevel degenerative changes of the cervical spine, as described. 2. Mild spinal canal stenosis at C6-C7. Otherwise, no significant spinal canal narrowing. 3. Multilevel neural foraminal stenosis, greatest on the right at C4-C5 and C5-C6. Please see the body of the report for details. Allergies: Allergies Allergen Reactions ??? Penicillins Itching Vitals: BP 113/75 Pulse 67 LMP (LMP Unknown) SpO2 98% [...] 6/10 in the arm Post-procedure pain score: 2/10 in the neck, 2/10 in the arm Assessment/Plan: Danielle Garza is a 47 year old female s/p cervical interlaminar epidural [...] post-procedure evaluation. 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 For SCS Trial, RFA's or any sedation procedure: Have you been fasting? NA ?? If yes, for how long? Are you taking any any blood thinners such as Coumadin, Warfarin, Jantoven, Pradaxa Xarelto, Eliquis, Edoxaban, Enoxaparin, Lovenox, Heparin, Arixtra, Fondaparinux, or Fragmin? OR Antiplatelet medication such as Plavix, Brilinta, or Effient? No ?? If yes, when did you take your last dose? ?? Do you take aspirin? Yes - ASA- yivgzti-eegebngoulzte-uwxnyglx (EXCEDRIN MIGRAINE) 250-250-65 ?? If cervical procedure, have you held aspirin for 6 days? Yes Do you have any allergies to contrast dye, iodine, steroid and/or numbing medications? NO Are you currently taking antibiotics or have an active infection? NO Have you had a fever/elevated temperature within the past week? NO Are you currently taking oral steroids? 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 NO Have you received the COVID-19 vaccine? Yes ??? If yes, was it your 1st, 2nd or only dose needed? 2nd dose- Booster ??? Date of most recent vaccine: 11/19/2021 Notify provider and RNs if systolic BP >170, diastolic BP >100, P >100 or O2 sats < 90% Michelle Gonzalez MA [facility] ALS COORDINATOR * Yazmin Mendez RN - 01/13/2023 3:15 PM CST Discharge Information IV Discontiued Time: NA Amount [...] home? Yes Signature/Title: Yazmin Mendez RN RN Plastic Surgeon [facility] ALS COORDINATOR documented in this encounter Plan of Treatment Upcoming Encounters Date Type Department Care Team (Late st Contact Info) Description 03/19/2024 3:30 PM CDT Office Visit [facility] Specialty [facility] [address] [place] [phone] Elmer Paul MD [address] [facility] [address] [place] [address] 04/16/2024 8:30 AM CDT Lab [facility] Heart [facility] [address] [place] [phone] 04/20/2024 8:45 AM CDT Office Visit [facility] [address] [facility] [place] [phone] Lavern Pope MD [address] [facility] [place] [address] documented as of this encounter Procedures Procedure Name Priority Date/Time Associated Diagnosis Comments PAIN INTERLAMINAR EPIDURAL STRD INJ CERVICAL Routine 01/13/2023 3:28 PM APPEALS COORDINATOR 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 Multilevel degenerative changes of the cervical spine, as described. 2. Mild spinal canal stenosis at C6-C7. Otherwise, no significant spinal canal narrowing. 3. Multilevel neural foraminal stenosis, greatest on the right at C4-C5 and C5-C6. Please see the body of the report for details. Allergies: Allergies Allergen Reactions ? ? Penicillins Itching Vitals: BP 113/75 ?? Pulse 67 ?? LMP ??(LMP Unknown) [...] 6/10 in the arm Post-procedure pain score: 2/10 in the neck, 2/10 in the arm Assessment/Plan: Danielle Garza is a 47 year old female s/p cervical interlaminar epidural [...] post-procedure evaluation. EDEN LINN MD Pain Management Narrative 01/13/2023 3:36 PM APPEALS COORDINATOR Table formatting from the original result was not included. Images from the original result were not included. [facility] - Procedure Note Date of Visit: 01/13/2023 Procedure performed: C7-T1 interlaminar epidural steroid injection with fluoroscopic guidance Diagnosis: Cervical spondylosis; Cervical radiculitis/radiculopathy [employer] Support: Eden Linn MD Anesthesia: none Indications: Danielle Garza is a 47 year old female who is seen at the request of Marlene Benoit CNP for cervical epidural steroid injection. The patient describes headaches and neck pain with radiation into the left arm. The patient has been exhibiting symptoms consistent with cervical intraspinal inflammation and radiculopathy. Symptoms have been persistent, disabling, and intermittently severe. The patient reports minimal improvement with conservative treatment, including previous lumbar OLIVIA's, PT and medications. Cervical MRI was done on 09/13/2022 which showed: FINDINGS: Normal vertebral body heights. Straightening of the normal cervical lordosis. Mild presumably Modic type I degenerative endplate signal changes at C3-C4. Bone marrow signal otherwise appears normal. No abnormal spinal cord signal. Mild scattered degenerative changes of facet joints. The visualized paraspinous soft tissues appear unremarkable. ?? Several analysis: Cranial vertebral junction/C1-C2: Unremarkable. ?? C2-C3: Normal disc height. No herniation. No spinal canal or neural foraminal stenosis. ?? C3-C4: Moderate disc height loss. Symmetric disc bulge with posterior endplate osteophytic ridging. No significant spinal canal stenosis. No significant neural foraminal stenosis. ?? C4-C5: Normal disc height. Symmetric disc bulge with posterior endplate osteophytic ridging. Right-sided uncovertebral spurring. No spinal canal stenosis. Mild to moderate/moderate right neural foraminal stenosis. Mild left neural foraminal stenosis. ?? C5-C6: Mild disc height loss. Symmetric disc bulge. Posterior endplate osteophytic ridging and mild bilateral uncovertebral spurring. Aryi-tr-mocvctqy right neural foraminal stenosis. The left neural foramen appears patent. ?? C6-C7: Normal disc height. Small right central disc protrusion. The disc protrusion mildly indents the ventral aspect of the thecal sac and contacts the ventral margin of the spinal cord without significant cord deformity. Mild spinal canal stenosis. No significant neural foraminal stenosis. ?? C7-T1: Normal disc height. No herniation. No spinal canal or neural foraminal stenosis. Eden Linn MD [employer] PAIN MANAGEMENT ORDERABLES documented in this encounter Visit Diagnoses Diagnosis Cervical radiculopathy- Primary Brachial neuritis or radiculitis nos Spondylosis of cervical region without myelopathy or radiculopathy Cervical spondylosis without myelopathy documented in this encounter Administered Medications Inactive Administered Medications - up to 3 most recent administrations Medication Order MAR Action Action Date Dose Rate Site dexamethasone PF (DECADRON) injection 10 mg 10 mg, EPIDURAL, ONCE, Administer over 1 Minutes, On Fri01/13/23 at 1600, For 1 dose, Cervical OLIVIA $Given 01/14/2023 10:29 AM APPEALS COORDINATOR 10 mg dexamethasone PF (DECADRON) injection 10 mg 10 mg, EPIDURAL, ONCE, Administer over 1 Minutes, On Fri01/13/23 at 1600, For 1 dose, Cervical OLIVIA $Given 01/14/2023 10:28 AM APPEALS COORDINATOR 10 mg iohexol (OMNIPAQUE) 300 mg/mL injection 10 mL 10 mL, EPIDURAL, ONCE, On 01/13/23 at 1530, For 1 dose $Given by Other 01/13/2023 3:29 PM APPEALS COORDINATOR 1 mL documented in this encounter Additional Health Concerns Assessment Noted Time PHQ-9 Depression Total Score: 6 11/19/20 22 2:05 PM APPEALS COORDINATOR documented as of this encounter Care Teams Veterinary Laboratory Technician Relationship Specialty Start Date End Date Carey Vuong MD [address] [facility] [place] [address] PCP - General 01/15/02 Mehreen Scott MD [address] [facility] [address] [place] [address] director internal audit 12/15/19 Carey Vuong MD [address] [facility] [place] [address] Assigned PCP 02/22/21 Prema Hitchcock PA-C [address] [facility] [place] [address] Assigned Surgical Provider 11/04/21 Chidi Puckett MD [address] [facility] [address] [place] [address] Assigned Sleep Provider 02/17/22 10/31/23 Harriet Lindsay Personal Advocate & Liaison (PAL) 06/17/22 Aisha Murdock PA-C [facility] [address] [facility] [place] [address] Assigned Neuroscience Provider 06/08/22 11/28/23 Lavern Pope MD [address] [facility] [address] [place] [address] Cardiovascular Disease 11/11/22 Lavern Pope MD [address] [facility] [address] [place] [address] Assigned Heart and Vascular Provider 11/16/22 documented as of this encounter
--- OUTSIDE RECORDS SUMMARY | 2023-12-29 23:14 | XMS_ITS | Encounter Summary ---
Author Name Unknown Organization [place] Address [facility] [place] [address] Care Team Providers Care Tub Operator Name Role Phone Carey Vuong MD Primary Care Provider [phone] Mehreen Scott MD Unavailable Carey Vuong MD Unavailable [phone] Prema Hitchcock PA-C Unavailable [phone] Chidi Puckett MD Unavai lable Harriet Lindsay Unavailable Unavailable Aisha Murdock PA-C Unavailable [phone] Lavern Pope MD Unavailable [phone] Lavern Pope MD Unavailable [phone] Reason for Referral * Consultation (Routine: Next available opening) - Pending Review Specialty Diagnoses / Procedures Referred By Pinky t Referred To Contact Pain Medicine Diagnoses Neck pain Chronic bilateral low back pain without sciatica Lumbar radiculopathy Norm Gibbs PA-C [id number] [address] Referral ID Status Reason Start Date Expiration Date V isits Requested Visits Authorized [id number] Pending Review 12/30/2022 12/30/2023 1 1 Question Answer My clinical question is: Comprehensive Pain Care Reason for Referral: Comprehensive Pain Evaluation Are there any red flags that may impact the assessment or management of the patient? No Red Flags Provider, please review opioid agreement in the process instructions above. Do you agree to these terms? Yes Scheduling Instructions: [facility] will call you to coordinate care as prescribed your provider. If you don? t hear from a players club representative within 2 business days, please call . Comments Please be aware that coverage of these services is subject to the terms and limitations of your health insurance plan. Call member services at your health plan with any benefit or coverage questions. [facility] will call you to coordinate care as prescribed your provider. If you don? t hear from a players club representative within 2 business days, please call . HARDENER Encounter Details Date Type Department Care Team (Late st Contact Info) Description 12/27/2022 Telephone [facility] - [address], [address] [place] [address] Aisha Murdock PA-C [facility] [address] [place] [address] Social History Tobacco Use Types Packs/Day Years [...] How often do you attend [facility] or congregation services? More than 4 times [...] [facility] of Occupat ional [facility] - Occupational Stress Questionnaire Answer [...] Sex Assigned at Female 12/12/2019 6:30 PM DIE HARDENER Gender Identity Female 12/12/2019 6:30 PM DIE HARDENER Sexual Orientation Straight 04/04/2021 12 :18 PM CDT Travel History Travel Start Travel End [place] 12/06/2023 12/12/2023 COVID-19 Exposure Response Date Recorded In the last 10 days, have yo u been in contact with someone who was confirmed or suspected to have Coronavirus/COVID-19? No / Unsure 12/13/2022 7:39 AM DIE HARDENER documented as of this encounter Miscellaneous Notes * Telephone Encounter - Alka Crenshaw RN - 12/30/2022 1:31 PM CST Norm Gibbs PA-C said based on Aisha's note, it sounds like a referral to the Pain Team is next step to further discuss possible non-operative treatment options to include different types of steroid injections/ablations/blocks. ?? Sent patient [employer] message with above recs from Jeremy. Order placed. HARDENER * Telephone Encounter - Alka Crenshaw RN - 12/27/2022 11:05 AM DIE HARDENER Last Visit: 05/30/22 Next Visit: none Name of Provider: Aisha Murdock PA-C Assessment: DALLIN with Aisha for evaluation of low back pain on 05/30/22 Cervical XR and images were reviewed with patient by Aisha on 08/08/22. Recommended PT and pain consultation for evaluation for procedure for cervical and lumbar pain. Patient was seen by Dr. Christina Terry with pain and had Lumbar L4-5 interlaminar epidural steroid injection on 09/02/22. Patient reports this injection was very helpful. ?? Cervical MRI done to evaluate for KELLY on 09/13/22. Results reviewed with patient on 09/17/22 by Aisha. Recommended PT, conservative measures, if pain down arm worsens we can consider injections. If numbness worsens we can consider EMG. ?? Per RN notes from 10/2022 Patient evaluated by cardiology. Per patient, cardiology recommended patient reach out to neurology. PCP placed referral for neurology. Aisha agreed with neurology referral and stated they may recommend EMG as well. Patient calling in about injections specifically cervical inj or next steps. Patient continues to have both neck and low back pain. Patient wants to focus on neck symptoms as they are more severe than low back. Current Symptoms: neck pain, headaches, dizziness, nausea, light headedness, tinnitus. Patient follows with neurology at [facility]. Was evaluated by them. She said they did not order an EMG. They did EEG and MRA. She said neurology diagnosed her with vasovagal syncope but said they also thought maybe migraines but did not dx her with that . Patient denies ever losing consciousness or fainting. Patient said she had a visit with ENT this morning> per patient report ENT said not ENT issue and more of a neck issue and patient was told to contact us. Pain Management: Taking OTC pain relievers, using ice/heat, oxycodone prn. She completed PT end of October for her neck and low back. SHe found this to be very helpful. She continues to do at home exercises. -Patient feel like she is getting the runaround since ENT and neurology sent her back to us and would like to figure out whats causing her symptoms and get them treated. Recommendation given: Will route message to care team to review and advise. Updated patient that Aisha is OOO. Action needed from provider: Aisha mentioned in previous notes possible injection if pain down arm worsens we can consider injections however, patient is not reporting any arm pain. Please review andadvise if cervical OLIVIA appropriate or not or if a visit would be recommended for re-evaluation. HARDENER * Telephone Encounter - Maryana June - 12/27/2022 9:52 AM CST Patient states there was a discussion to have injections for pain. Currently patient chart does nothave an active referral for procedure. HARDENER documented in this encounter Plan of Treatment Upcoming Encounters Date Type Department Care Team (Late st Contact Info) Description 03/19/2024 3:30 PM CDT Office Visit [facility] [address] [place] [phone] Elmer Paul MD [address] [facility] [address] [place] [id number] 04/16/2024 8:30 AM CDT Lab [facility] [address] [facility] [address] [place] [phone] 04/20/2024 8:45 AM CDT Office Visit [facility] [address] [place] [phone] Lavern Pope MD [address] [facility] [address] [place] [phone] Scheduled Referrals Name Type Priority Associated Diagnoses Orde r Schedule Pain Management [employer] Vice President Referral Referral Routine: Next available opening Neck pain Chronic bilateral low back pain without sciatica Lumbar radiculopathy Expected: 12/30/2022 (Approximate), Expires: 12/30/2023 documented as of this encounter Visit Diagnoses Diagnosis Neck pain Cervicalgia Chronic bilateral low back pain without sciatica Lumbar radiculopathy Thoracic or lumbosacral neuritis or radiculitis, unspecified documented in this encounter Additional Health Concerns Assessment Noted Time PHQ-9 Depression Total Score: 6 11/19/20 22 2:05 PM DIE HARDENER documented as of this encounter Care Teams Tub Operator Relationship Specialty Start Date End Date Carey Vuong MD [address] [place] [address] [place] [address] PCP - General 01/15/02 Mehreen Scott MD [address] [facility] [address] [place] [phone] medical practice assistant 12/15/19 Carey Vuong MD [address] [place] [address] Assigned PCP 02/22/21 Prema Hitchcock PA-C [address] [facility] [place] [place] [address] Assigned Surgical Provider 11/04/21 Chidi Puckett MD [address] [facility] [address] [place] [address] Assigned Sleep Provider 02/17/22 10/31/23 Harriet Lindsay Personal Advocate & Liaison (PAL) 06/17/22 Aisha Murdock PA-C [facility] [address] [place] [address] Assigned Neuroscience Provider 06/08/22 11/28/23 Lavern Pope MD [address] [address] [address] [place], [place] [address] Cardiovascular Disease 11/11/22 Lavern Pope MD [address] [facility] [address] [place], [place] [id number] Assigned Heart and Vascular Provider 11/16/22 documented as of this encounter
--- OUTSIDE RECORDS SUMMARY | 2023-12-29 23:14 | XMS_ITS | Encounter Summary ---
Author Name Unknown Organization [facility] Address [address] [place] [id number] Care Team Providers Care Housekeeping Laundry Worker Name Role Phone Carey Vuong MD Primary Care Provider [phone] Mehreen Scott MD Unavailable [phone] Carey Vuong MD Unavailable Prema Hitchcock PA-C Unavailable [phone] Chidi Puckett MD Unavai lable Harriet Lindsay Unavailable Unavailable Aisha [facility] PA-C Unavailable [phone] Lavern Pope MD Unavailable [phone] Lavern Pope MD Unavailable [phone] Reason for Referral * Consultation (Routine: Next available opening) - Pending Review Specialty Diagnoses / Procedures Referred By Pinky t Referred To Contact Diagnoses Spondylosis of cervical region without [place]opathy [place] [address] [place] [address] [facility] [place] [id number] [place] [address] [place] [phone] Referral ID Status Reason Start Date Expiration Date V isits Requested Visits Authorized [id number] Pending Review 01/06/2023 01/06/2024 1 1 Scheduling Instructions Interventional Evaluation: Interventional Injection Only - Type of Injection: Cervical OLIVIA C7-T1 Interlaminar Radiology? Yes O MANAGER Reason for Visit * Reason Comments Pain * Consultation (Routine: Next available opening) - Pending Review Specialty Diagnoses / Procedures Referred By Contdhara t Referred To Contact Pain Medicine Diagnoses Neck pain Chronic bilateral low back pain without sciatica Lumbar radiculopathy Norm Gibbs PA-C [address] [place] [address] Referral ID Status Reason Start Date Expiration Date V isits Requested Visits Authorized [id number] Pending Review 12/30/2022 12/30/2023 1 1 Encounter Details Date Type Department Care Team (Late st Contact Info) Description 01/06/2023 8:00 AM VIDEO MANAGER Office Visit [facility] [place] [id number] [place] [address] [address] [place] [address] Norm Gibbs PA-C [address] [place], [place] [address] Marlene Benoit NP [id number] [place], [place] [address] [address] Neck pain (Primary Dx); Spondylosis of cervical region without myelopathy or radiculopathy; Migraine without aura and without status migrainosus, not intractable; Acute right-sided low back pain without sciatica; Chronic bilateral low back pain without sciatica; Lumbar radiculopathy Social History Tobacco Use Types Packs/Day [...] 06/17/2022 How often do you attend [facility] or anabaptism services? More than 4 times per year 06/17/2022 Do you belong to any clubs o r organizations such as mormon groups, unions, fraternal or athletic groups, or [...] Answer Date Recorded PHQ-2 Score 1 11/19/2022 [facility] - Occupational Stress Questionnaire Answer Date [...] Sex Assigned at Female 12/12/2019 6:30 PM VIDEO MANAGER Gender Identity Female 12/12/2019 6:30 PM VIDEO MANAGER Sexual Orientation Straight 04/04/2021 12 :18 PM CDT Travel History Travel Start Travel End [place] 12/06/2023 12/12/2023 COVID-19 Exposure Response Date Recorded In the last 10 days, have yo u been in contact with someone who was confirmed or suspected to have Coronavirus/COVID-19? No / Unsure 01/06/2023 7:42 AM VIDEO MANAGER documented as of this encounter Last Filed Vital Signs Vital Sign Reading Time Taken Comments Blood Pressure 131/80 01/06/2023 8:03 AM VIDEO MANAGER Pulse 63 01/06/2023 8:03 AM VIDEO MANAGER Temperature - - Respiratory Rate - - Oxygen Saturation 98% 01/06/2023 8:03 AM VIDEO MANAGER Inhaled Oxygen Concentration - - Weight - - Height - - Body Mass Index - - documented in this encounter Patient Instructions * Patient Instructions* Marlene Benoit NP - 01/06/2023 8:00 AM VIDEO MANAGER Toradol injection in clinic - do not take another dose of Ibuprofen until mid to late afternoon. Cervical (neck) epidural ordered, they will call you to set up. Start Topamax to decrease nerve sensitivity, decrease headaches. Robaxin (muscle relaxant) to treat muscle spasms. Clinic Number: [phone] Call with any questions about your care and for scheduling assistance. Calls are returned Friday through Friday between 8 AM and 4:30 PM. We usually get back to you within 2 business days depending on the issue/request. If we are prescribing your medications: For opioid medication refills, call the clinic or send a [employer] message 7 days in advance. Please include: Name of requested medication Name of the pharmacy. For non-opioid medications, call your pharmacy directly to request a refill. Please allow 3-4 days to be processed. Per [place] State Law: All controlled substance prescriptions must [...] may lead to dismissal from the clinic. O MANAGER documented in this encounter Progress Notes * Marlene Benoit NP - 01/06/2023 8:00 AM CST Images from the original note were not included. [facility] Pain Management Date of visit: 01/06/2023 Reason for visit: Consultation: Danielle Garza is a 47 year old female with PMH significant for asthma, depression, SVT s/p ablation, knee pain (s/p 12 surgeries) and neck and back pain who is seen in consultation today at the request of Norm Gibbs PA-C for evaluation of her pain issues and recommendations for management.Danielle Sowmya Garza has not been seen at a pain clinic in the past. Norm Gibbs PA-C [address] [place] [address] Diagnoses: Neck pain Chronic bilateral low back pain without sciatica Lumbar radiculopathy Order: Pain Management Solar Consultant Referral History: 05/2022: Left gastrocnemius-soleus tear/strain treated @ [...] UTI 12/23/22: neurology consult; was scheduled at [facility] Chief Complaint: Chief Complaint Patient presents with ??? Pain Low back pain improved after initial flare in May 2022 after treatment with PT and chiropractic. Had resumed exercise program, but without any impact, lowered weights lifted, lowered intensity overall. August 2022, pain seemed to slowly come back, started as a soreness. Epidural injection in August, helped quite a bit. In the past few weeks, left leg numbness from anterior thigh to the foot. No toe numbness. Comes and goes, worse after standing. Pain her back is on the right side right now, this started last week. Stayed away from the gym, then returned 3 days ago. [place] good afterwards, but this morning was bending over to put on her sock and had immediate that is throbbing and aching.A little bit of a locking-up type sensation. This is causing her significant discomfort and distress this morning, needing to lie down on the exam table due to pain during most of the visit. Neck pain: Cancelled [facility] neurology consult, I am sick of going to the doctor. She is hopeful that having a cervical epidural may help some of her nausea, light-headedness, ringing in her ears. Hadthis starting in October, very random. Last episodes, she had profound tremors and shaking. Very odd, and terribly scary. Did not go in anywhere, laid down flat and symptoms resolved in 10 minutes. Symptoms have not returned. Headaches occur starting in the back of her neck and come to her forehead. Occasional stabbing type pain. Photo and phonophobia. Has a migraine helmet (cold pack that is over her whole head), this helps a lot. Excedrin Migraine occasionally helps. Ibuprofen occasionallyhelps. Has a variety of light headaches and severe headaches that wake her up in the middle of the night. Used Imitrex in the past, not helpful. Aleve not helpful. Headaches typically last from a few hours to a few days. Has headaches 20 days a month. Has worsened lately. Neck pain is in the middle of her neck and this is where her headache starts. When neck gets sore, does exercises and this helps somewhat. Trying a different pillows to find one that will help her avoid headaches. Can radiate to shoulders, aching and dull pain. Dizziness when she turns her head, 4-5 times per day. The patient otherwise denies bowel or bladder incontinence, parasthesias, weakness, saddle anesthesia, unintentional weight loss, or fever/chills/sweats. Pain description: Location: Quality: as above Duration: constant with intermittent periods of worsening pain Severity/Intensity (0 = No pain to 10 = Worst pain imaginable) Now: 7 Average in past 2 weeks: 8 Best: in past 24 hours: 2 Worst in past 24 hours: 9 Aggravating factors include: standing, sitting, exercise, coughitn.sneezing, bowel movements Relieving factors include: lying down, medication, relaxation Current pain medications: Ibuprofen prn Excedrin Migraine prn Review of [place] Prescription Monitoring Program (HOUSEHOLD WORKER): No concern for abuse or misuse of controlled medications based on this report. Viewed on 01/06/2023. PAIN MANAGEMENT TREATMENT HISTORY 1. MEDICATIONS: Opiates: no NSAIDS: Ibuprofen (Advil, Motrin). Medication was unsure Naproxen (Aleve). Medication was unsure, somewhat helpful? Muscle Relaxants: not tried Anti-migraine mediations: Sumatriptan (Imitrex tablets). Medication was not helpful Excedrin Migrane_ somewhat helpful Anti-depressants: Citalopram & Bupropion helpful for mood Sleep aids: None Anxiolytics: None Neuropathics: not tried Topicals: not tried Adjuvant pain medications: Acetaminophen 2. PHYSICAL THERAPY: Yes at [facility] Summer 2021, was combination of PT and Chiropractic - helped, still does HEP 3. PAIN PSYCHOLOGY: No 4. SURGERY: Not for back or neck. 15 knee surgeries. 5. INJECTIONS: 09/02/22: Lumbar L4-5 interlaminar epidural steroid injection [...] arthropathy. No foraminal or spinal canal stenosis. L1-L2: Severe disc [...] endplate osteophytic ridging and mildbilateral uncovertebral spurring. Mhjs-hz-[id number] right neural foraminal stenosis. The left neuralforamen [...] the body of the report for details. Past Medical History: Past Medical History: Diagnosis Date ??? Asthma ??? Cervical endometriosis ??? Depression ??? History of supraventricular tachycardia s/p ablation ??? Irregular heart beat ??? Mild intermittent asthma ??? Overactive bladder ??? Pain in joint, lower leg 12 knee surgeries ??? Palpitations ??? Urinary incontinence Past Surgical History: Past Surgical History: Procedure Laterality Date ??? [...] Deandre Allen DO; Location: [facility] ??? 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 THORACIC SURGERY ablation ??? [facility] NONSPECIFIC PROCEDURE Right knee ALESSANDRA reconstruction x 2 - cartilage damage ??? [facility] NONSPECIFIC PROCEDURE T&A ??? [facility] NONSPECIFIC PROCEDURE PET x 8 sets ??? [facility] NONSPECIFIC PROCEDURE multiple (11) arthroscopic knee surgeries Past Social History: Social History Tobacco Use ??? [...] use: No Social History Social History Narrative ??? Not on file Medications: Current Outpatient Medications Medication Sig Dispense Refill ??? albuterol (PROAIR HFA/PROVENTIL HFA/VENTOLIN HFA) 108 (90 Base) MCG/ACT inhaler INHALE 2 PUFFS BY MOUTH EVERY 6 HOURS 18 g 1 ??? pzdsgkw-opygueqrjautp-vaiutcfx (EXCEDRIN MIGRAINE) 250-250-65 MG tablet Take 1 [...] by mouth daily 90 tablet 3 ??? fluticasone (FLONASE) 50 MCG/ACT nasal spray SHAKE LIQUID AND USE 2 SPRAYS IN EACH NOSTRIL EVERY DAY 48 g 11 ??? ibuprofen (ADVIL/MOTRIN) 400 MG tablet Take 400 mg by mouth every 6 hours as needed ??? ipratropium (ATROVENT) 0.06 % nasal spray [place] 2 sprays into both nostrils 4 times daily 15 mL10 ??? levalbuterol (XOPENEX HFA) 45 MCG/ACT inhaler INHALE 2 PUFFS INTO THE LUNGS EVERY 4 HOURS NEEDED FOR SHORTNESS OF BREATH OR DIFFICULT BREATHING OR WHEEZING 15 g 0 ??? omeprazole (PRILOSEC) [address] capsule Take 1 capsule (40 mg) by mouth daily 90 capsule 4 ??? triamcinolone (KENALOG) 0.1 % external cream Apply topically 2 times daily as needed for irritation (up to 1 week at a time.) 15 g 3 ??? fexofenadine (SPARKLE) 180 MG tablet Take 180 mg by mouth daily With zyrtec in the evening 100 tablet 0 ??? fish oil-omega-3 fatty acids 1000 MG capsule Take 1 capsule by mouth daily With sparkle in the morning ??? Multiple Vitamin (MULTI-VITAMIN) per tablet Take 1 tablet by mouth daily. ??? norethindrone (AYGESTIN) 5 MG tablet Take 5 mg by mouth daily ??? promethazine (PHENERGAN) 12.5 MG tablet Allergies: Allergies Allergen Reactions ??? Penicillins Itching Family history: Family History Problem Relation Age of Onset ??? Neurologic Disorder Mother migraine ??? Diabetes Father ??? Diabetes Brother ??? Diabetes Maternal Grandmother ??? Cardiovascular Paternal Grandmother ??? Cerebrovascular Disease Paternal Grandfather ??? Diabetes Paternal Grandfather Review of Systems: (Positive responses bolded) GENERAL: fever/chills, fatigue, general unwell feeling, weight gain/loss. HEAD/EYES: headache, dizziness, or vision changes. EARS/NOSE/THROAT: nosebleeds, hearing loss, sinus infection, earache, tinnitus (comes and goes, notrelated to any other symptoms). IMMUNE: allergies, cancer, immune deficiency, or infections. SKIN: itching, rash, hives HEME/Lymphatic: anemia, easy bruising, easy bleeding. RESPIRATORY: cough, wheezing, or shortness of breath CARDIOVASCULAR/Circulation: extremity edema, syncope, hypertension, tachycardia, or angina. GASTROINTESTINAL: abdominal pain, nausea/emesis, diarrhea, constipation, (Miralax intermittently), hematochezia, or melena. ENDOCRINE: diabetes, steroid use, thyroid disease or osteoporosis. MUSCULOSKELETAL: joint pain (shoulders, knees, back), stiffness, neck pain, back pain, arthritis, or gout. GENITOURINARY: frequency, urgency, dysuria, difficulty voiding, hematuria or stress incontinence. NEUROLOGIC: weakness, numbness, paresthesias (both legs, sometimes arms), seizure, tremor, stroke or memory loss. PSYCHIATRIC: depression, anxiety, stress, suicidal thoughts or mood swings. OBJECTIVE Vitals: 01/06/23 0803 BP: 131/80 Pulse: 63 SpO2: 98% Constitutional: Well developed, well nourished, appears stated age. No acute distress, but in obvious discomfort Gait is steady and slowed HEENT: Head atraumatic, normocephalic. Eyes without conjunctival [...] Unremarkable spinal curvature. Cervical spine: ROM: full. No nystagmus appreciated Rotation/ext to right: pain free Rotation/ext to left: painful Myofascial tenderness: scapula, trapezius, rhomboids, paracervicals bilaterally Normal 5/5 UE strength bilaterally Normal sensation to light touch in the C4-T1 distributions bilaterally No allodynia, dysesthesia, or hyperalgesia in the upper extremities bilaterally Reflexes: Normal 2/2 of biceps and bracioradialis Lumbar/Thoracic spine: ROM: restricted due to pain Rotation/ext to right: painful Rotation/ext to left: pain free Myofascial tenderness:right para lumbar muscles Focal tenderness: No SI joint, gluteal, piriformis, or GT tenderness Normal 5/5 LE strength bilaterally Normal sensation to light touch in the lower extremities bilaterally No allodynia, dysesthesia, or hyperalgesia in the lower extremities bilaterally Reflexes: Lower extremity reflexes within normal limits bilaterally No ankle clonus bilaterally Straight leg raise: Negative ASSESSMENT AND PLAN: The following recommendations were given to the patient. Diagnosis, treatment options, risks, benefits, and alternatives were discussed, and all questions were answered. The patient expressed understanding of the plan for pain management. I am recommending a multidisciplinary treatment plan to helpthis patient better manage her pain. 1. Neck pain 2. Spondylosis of cervical region without myelopathy or radiculopathy 3. Migraine without aura and without status migrainosus, not intractable Discussed that it is unlikely that all of her symptoms will resolve with cervical epidural (which is what she is hoping for.) It is likely that her cervical spine could be triggering worsening migranes and their associated symptoms. Encouraged her to complete the neurology evaluation as previously o rdered. Will start preventative medication as she has migraines 20 days per month. Topamax can alsohelp to decrease her pain symptoms. - methocarbamol (ROBAXIN) 500 MG tablet; Take 1-2 tablets (500-1,000 mg) by mouth 3 times daily as needed for muscle spasms Dispense: 60 tablet; Refill: 0 - topiramate (TOPAMAX) 25 MG tablet; Take 1 tablet (25 mg) by mouth 2 times daily Dispense: 60 tablet; Refill: 1 - PAIN INJECTION EVAL/TREAT/FOLLOW UP 4. Acute right-sided low back pain without sciatica Headaches may respond to robaxin, as may her musculoskeletal lower back pain. Administered IM injection of Toradol for acute symptoms, if not resolving she could seek care in Urgent care or with her PCP. - methocarbamol (ROBAXIN) 500 MG tablet; Take 1-2 tablets (500-1,000 mg) by mouth 3 times daily as needed for muscle spasms Dispense: 60 tablet; Refill: 0 - ketorolac (TORADOL) injection 30 mg Marlene Benoit, GROUND OPERATIONS SUPERINTENDENT-BC, PMGT-BC, AP-PMN [facility] BILLING TIME DOCUMENTATION: The total TIME spent on this patient on the date of the encounter/appointment was 85 minutes. TOTAL TIME includes: Time spent preparing to see the patient by reviewing available medical information in the patient'smedical record, including relevant provider notes, laboratory work, and imaging 8 minutes Time spent face to face (or over the phone) with the patient 62 minutes Time spent ordering tests, medications, procedures and referrals 2 minutes Time spent Referring and communicating with other healthcare professionals 0 minutes Time spent documenting clinical information in Epic 13 minutes O MANAGER documented in this encounter Nursing Notes * Jocelyne Arango CMA - 01/06/2023 8:00 AM CST PEG: A Three-Item Scale Assessing Pain Intensity and Interference What number best describes your PAIN ON AVERAGE in the past week? 8 What number best describes how, during the past week, pain has interfered with your ENJOYMENT OF LIFE? 10 - Completely interferes What number best describes how, during the past week, pain has interfered with your GENERAL ACTIVITY? 8 PEG Total Score: 8.67 Dion ALLISON, Chris KA, Kourtney MJ, Narinder TA, Tristin J, Shelly JM, Adriano SM, Kroegisselle K. Development and initial validation of the PEG, a 3-item scale assessing pain intensity and interference. Journal of General Internal Medicine. 2009 Wilder;24:733-738. O MANAGER documented in this encounter Plan of Treatment Upcoming Encounters Date Type Department Care Team (Late st Contact Info) Description 03/19/2024 3:30 PM CDT Office Visit [address] [place] [phone] Elmer Paul MD [address] [facility] [address] [place] [address] 04/16/2024 8:30 AM CDT Lab [facility] Heart [address] [place] [phone] 04/20/2024 8:45 AM CDT Office Visit [facility] [address] [facility] [address] [place] [phone] Lavern Pope MD [address] [facility] [address] [place] [address] Scheduled Referrals Name Type Priority Associated Diagnoses Orde r Schedule PAIN INJECTION EVAL/TREAT/FOLLOW UP Referral Routine: Next available opening Spondylosis of cervical region without myelopathy or radiculopathy Ordered: 01/06/2023 documented as of this encounter Visit Diagnoses Diagnosis Neck pain- Primary Cervicalgia Spondylosis of cervical region without myelopathy or radiculopathy Cervical spondylosis without myelopathy Migraine without aura and without status migrainosus, not intractable Migraine without aura, without mention of intractable migraine without mention of status migrainosus Acute right-sided low back pain without sciatica Chronic bilateral low back pain without sciatica Lumbar radiculopathy Thoracic or lumbosacral neuritis or radiculitis, unspecified documented in this encounter Administered Medications Inactive Administered Medications - up to 3 most recent administrations Medication Order MAR Action Action Date Dose Rate Site ketorolac (TORADOL) injection 30 mg 30 mg, Intramuscular, ONCE, Administer over 2 Minutes, On Fri01/06/23 at 0930, For 1 dose, Can cause pain on injection. If ordered intravenously (IV) : administer through a running maintenance fluid over 1 minute followed by a flush. If patient complains of pain on injection, may dilute 15-30 mg in 5 mL and push over 1 to 2 minutes. $Given 01/06/2023 9:24 AM VIDEO MANAGER 30 mg Left Ventrogluteal documented in this encounter Additional Health Concerns Assessment Noted Time PHQ-9 Depression Total Score: 6 11/19/20 22 2:05 PM VIDEO MANAGER documented as of this encounter Care Teams Housekeeping Laundry Worker Relationship Specialty Start Date End Date Carey Vuong MD [address] [facility] [place] [address] PCP - General 01/15/02 Mehreen Scott MD [address] [facility] [address] [place] [phone] gumming machine operator 12/15/19 Carey Vuong MD [address] [place] [address] Assigned PCP 02/22/21 Prema Hitchcock PA-C [address] [facility] [place] [address] Assigned Surgical Provider 11/04/21 Chidi Puckett MD [address] [facility] [address] [place], [place] [address] Assigned Sleep Provider 02/17/22 10/31/23 Harriet Lindsay Personal Advocate & Liaison (PAL) 06/17/22 Aisha [facility] PA-C [facility] [address] [facility] [place] [address] Assigned Neuroscience Provider 06/08/22 11/28/23 Lavern Pope MD [address] [facility] [address] [place] [address] Cardiovascular Disease 11/11/22 Lavern Pope MD [address] [facility] [address] [place], [place] [address] Assigned Heart and Vascular Provider 11/16/22 documented as of this encounter
--- OUTSIDE RECORDS SUMMARY | 2023-12-29 23:14 | XMS_ITS | Encounter Summary ---
Author Name Unknown Organization [place] Address [facility] [place] [address] Care Team Providers Care Outside B2B Sales Name Role Phone Carey Vuong MD Primary Care Provider [phone] Meheren Scott MD Unavailable [phone] Carey Vuong MD Unavailable Prema Hitchcock PA-C Unavailable Chidi Puckett MD Unavai lable Harriet Lindsay Unavailable Unavailable Aisha Murdock PA-C Unavailable Lavern Pope MD Unavailable Lavern Pope MD Unavailable Encounter Details Date Type Department Care Team (Late st Contact Info) Description 01/01/2023 [facility] [place] [facility] Neu[facility] [address], [address] [place] [address] Aisha Murdock PA-C [facility] [address] [place] [address] [place] [address] Social History Tobacco Use Types Packs/Day Years [...] do you attend [facility] or congregation services? More than 4 times [...] Answer Date Recorded PHQ-2 Score 1 11/19/2022 [facility] of Occupat ional Health - Occupational Stress [...] Assigned at Female 12/12/2019 6:30 PM STEAM GIGGER Gender Identity Female 12/12/2019 6:30 PM STEAM GIGGER Sexual Orientation Straight 04/04/2021 12 :18 PM CDT Travel History Travel Start Travel End [place] 12/06/2023 12/12/2023 COVID-19 Exposure Response Date Recorded In the last 10 days, have yo u been in contact with someone who was confirmed or suspected to have Coronavirus/COVID-19? No / Unsure 01/06/2023 7:42 AM STEAM GIGGER documented as of this encounter Miscellaneous Notes * Telephone Encounter - Yana Wagner RN - 01/13/2023 8:21 AM STEAM GIGGER Updated patient via [employer] on below recommendations from Patt Chi PA-C. M GIGGER * Telephone Encounter - Patt Chi PA-C - 01/03/2023 3:49 PM STEAM GIGGER She can see what comes of her pain clinic visit, if she is not making progress with them she can certainly follow-up with us. M GIGGER * Telephone Encounter - Yana Wagner RN - 01/02/2023 10:32 AM STEAM GIGGER Patient sent mychart with concerns of sciatic pain that is impacting her daily life. Also reporting her right thigh occassionally goes numb. She previously saw Aisha Murdock PA-C for low back pain and received a LESI on 09/02/22. She states this injection helped with her previous back pain, but her symptoms now with the numbness are new. Patient also called clinic on 12/27 with low back pain and neck pain. We recommended she follow up with pain management. Patient looking for next steps for her new pain. Discuss with pain clinic? Follow up in clinic? Will review with team. M GIGGER documented in this encounter Plan of Treatment Upcoming Encounters Date Type Department Care Team (Late st Contact Info) Description 03/19/2024 3:30 PM CDT Office Visit [facility] Specialty [facility] [address] [facility] [address] [place] [address] Elmer Paul MD [address] [facility] [address] [place] [address] 04/16/2024 8:30 AM CDT Lab [facility] [address] [facility] [address] [place] [phone] 04/20/2024 8:45 AM CDT Office Visit [facility] Heart [facility] [address] [facility] [address] [place] [phone] Lavern Pope MD [address] [facility] [address] [place], [place] [address] documented as of this encounter Visit Diagnoses Not on filedocumented in this encounter Additional Health Concerns Assessment Noted Time PHQ-9 Depression Total Score: 6 11/19/20 22 2:05 PM STEAM GIGGER documented as of this encounter Care Teams Outside B2B Sales Relationship Specialty [place] [address] [place] [address] [place] [address] PCP - General 01/15/02 Mehreen Scott MD [address] [address] [place] [address] clinical engineering manager 12/15/19 Carey Vuong MD [address] [place] [address] [place] [address] Assigned PCP 02/22/21 Prema Hitchcock PA-C [address] [place] [address] Assigned Surgical Provider 11/04/21 Chidi Puckett MD [address] [facility] 106 [place] [address] Assigned Sleep Provider 02/17/22 10/31/23 Harriet Lindsay Personal Advocate & Liaison (PAL) 06/17/22 Aisha Murdock PA-C [facility] [address] [place] [address] Assigned Neuroscience Provider 06/08/22 11/28/23 Lavern Pope MD [address] [facility] [address] [place] [address] Cardiovascular Disease 11/11/22 Lavern Pope MD [address] [facility] [address] [place] [address] Assigned Heart and Vascular Provider 11/16/22 documented as of this encounter
[2023-12-29 23:15] LABS: Slide Review Reflex No
--- OUTSIDE RECORDS SUMMARY | 2023-12-29 23:15 | XMS_ITS | Encounter Summary ---
Author Name Unknown Organization [place] Address [address] [place] [address] Care Team Providers Care Mobile Plant Operators Name Role Phone Carey Vuong MD Primary Care Provider [phone] Mehreen Scott MD Unavailable [phone] Carey Vuong MD Unavailable [phone] Lavern Gonzalez MD Unavailable [phone] Prema Hitchcock PA-C Unavailable [phone] Chidi Puckett MD Unavai lable Harriet Lindsay Unavailable Unavailable Aisha MurdockC Unavailable [phone] Lavern Pope MD Unavailable [phone] Lavern Pope MD Unavailable [phone] Elmer Paul MD Unavailable [phone] Elmer Paul MD Unavailable [phone] Batool Torres NP Unavailable [phone] Marlene Benoit NP Unavailable [phone] Batool Torres ASSISTANT DIRECTOR OF FINANCIAL AID Unavailable Encounter Details Date Type Department Care Team (Late st Contact Info) Description 08/29/2021 MyC Medical Advice [facility] [address] [place] [address] Carey Vuong MD [address] [facility] [place] [address] Social History Tobacco Use Types Packs/Day Years Used Date Smoking Tobacco: Every Day Cigarettes 0 10 Cigars Smokeless Tobacco: Never Comments:smokes a single cig ar nightly Alcohol Use Standard Drinks/Week Comments Yes 5 (1 standard drink = 0.6 oz pur e alcohol) Social Connection and Isolat ion Panel [NHANES] Answer Date Recorded Frequency of Communication w ith Friends and Family Not on file 04/24/2021 Frequency of Social Gatherin gs with Friends and Family Not on file 04/24/2021 Attends Taoism Services Not on file 04/24 Active Member of Clubs or Organizations Not on f ile 04/24/2021 How often do you attend meet ings of the clubs or organizations you belong to? More than 4 times per year 04/24/2021 Marital Status Not on file 04/24/2021 AUDIT-C Answer Date Recorded Q1: How often do you have a drink containing alc ohol? 2-4 times a month 04/24/2021 Q2: How many drinks containi ng alcohol do you have on a typical day when you are drinking? 3 or 4 04/24/2021 Q3: How often do you have si x or more drinks on one occasion? Less than monthly 04/24/2021 Overall Financial Resource Strain (CARDIA) Answe r Date Recorded How hard is it for you to pa y for the very basics like food, housing, medical care, and heating? Somewhat hard 04/24/2021 PHQ-2 Answer Date Recorded PHQ-2 Total Score (Adult) - Positive if 3 or more points; Administer PHQ-9 if positive 0 08/28/2021 [facility] [place] of Occupat ional Health - Occupational Stress Questionnaire Answer Date Recorded Do you feel stress - tense, restless, nervous, or anxious, or unable to sleep at night because your mind is troubled all the time - these days? Very much 04/24/2021 Exercise Vital Sign Answer Date Recorde d On average, how many days pe r week do you engage in moderate to strenuous exercise (like a brisk walk)? 1 day 04/24/2021 On average, how many minutes do you engage in exercise at this level? 30 min 04/24/2021 Hunger Vital Sign Answer Date Recorded Within the past 12 months, y ou worried that your food would run out before you got the money to buy more. Never true 12/12/19 20 Within the past 12 months, t he food you bought just didn't last and you didn't have money to get more. Never true 12/12/2019 PRAPARE - Transportation Answer Date Re corded In the past 12 months, has l ack of transportation kept you from medical appointments or from getting medications? No 12/01 In the past 12 months, has l ack of transportation kept you from meetings, work, or from getting things needed for daily living? No 12/12/2019 Housing Stability Vital Sign Answer Marco A e Recorded In the last 12 months, was t here a time when you were not able to pay the mortgage or rent on time? No 04/24/2021 In the last 12 months, how many places have you lived? 1 04/24/2021 In the last 12 months, was t here a time when you did not have a steady place to sleep or slept in a group home (including now)? No 04/24/2021 Education Answer Date Recorded What is the highest level of school you have completed or the highest degree you have received? Some college, no degree 12/12/2019 Sex and Gender Information Value Date Recorded Sex Assigned at Female 12/12/2019 6:30 PM TAPE CUTTING MACHINE OPERATOR Gender Identity Female 12/12/2019 6:30 PM TAPE CUTTING MACHINE OPERATOR Sexual Orientation Straight 04/04/2021 12 :18 PM CDT Travel History Travel Start Travel End [place] 12/06/2023 12/12/2023 COVID-19 Exposure Response Date Recorded In the last month, have you been in contact with someone who was confirmed or suspected to have Coronavirus / COVID-19? No / Unsure 08/28/2021 10:15 AM CDT documented as of this encounter Plan of Treatment Upcoming Encounters Date Type Department Care Team (Late st Contact Info) Description 03/19/2024 3:30 PM CDT Office Visit [facility] [place] [address] [facility] [address] [place] [phone] Elmer Paul MD [address] [facility] [address] [place] [address] 04/16/2024 8:30 AM CDT Lab [facility] Heart [facility] [address] [facility] [address] [place] [phone] 04/20/2024 8:45 AM CDT Office Visit [facility] [address] [facility] [address] [place] [phone] Lavern Pope MD [address] [facility] [address] [place] [id number] documented as of this encounter Visit Diagnoses Not on filedocumented in this encounter Additional Health Concerns Assessment Noted Time PHQ-9 Depression Total Score: 4 08/29/20 21 7:01 AM CDT documented as of this encounter Care Teams Mobile Plant Operators Relationship Specialty Start Date End Date Carey Vuong MD [address] [place] [address] [place] [address] PCP - General 01/15/02 Mehreen Scott MD [address] [place] [phone] functional tester typewriters 12/15/19 Carey Vuong MD [address] [place] [address] [place] [address] Assigned PCP 02/22/21 Lavern Gonzalez MD [address] [place] [address] [address] [place] [address] Assigned Surgical Provider 04/29/21 11/03/21 Prema Hitchcock PA-C [address] [place] [address] Assigned Surgical Provider 11/04/21 Chidi Puckett MD [address] [place] [address] Assigned Sleep Provider 02/17/22 10/31/23 Harriet Lindsay Personal Advocate & Liaison (PAL) 06/17/22 Aisha Murdock PA-C [facility] [address] [place] [address] Assigned Neuroscience Provider 06/08/22 11/28/23 Lavern Pope MD [address] [facility] [address] [place] [address] Cardiovascular Disease 11/11/22 Lavern Pope MD [address] [facility] [address] [facility] [address] [place] [address] Assigned Heart and Vascular Provider 11/16/22 Elmer Paul MD [address] [place], [place] [address] Allergy & Immunology 02/17/23 Elmer Paul MD [address] [place], [place] [address] Assigned Allergy Provider 04/26/23 Batool Torres NP [address] [place] [address] Nurse Practitioner Pulmonary Disease 08/11/23 [place] [address] [place] [address] Nurse Practitioner Nurse Practitioner 10/29/23 Batool Torres NP [address] [place] [address] Assigned Pulmonology Provider 12/25/23 documented as of this encounter
--- OUTSIDE RECORDS SUMMARY | 2023-12-29 23:15 | XMS_ITS | Encounter Summary ---
Author Name Unknown Organization [place] Address [address] [place] [address] Care Team Providers Care Ground Operations Superintendent Name Role Phone Carey Vuong MD Primary Care Provider [phone] Mehreen Scott MD Unavailable [phone] Carey Vuong MD Unavailable [phone] Prema Hitchcock PA-C Unavailable [phone] Chidi Puckett MD Unavai lable Harriet Lindsay Unavailable Unavailable Aisha Murdock PA-C Unavailable [phone] Lavern Pope MD Unavailable [phone] Lavern Pope MD Unavailable [phone] Elmer Paul MD Unavailable [phone] Elmer Paul MD Unavailable [phone] Batool Torres NP Unavailable Marlene Benoit NP Unavailable [phone] Batool Torres NP Unavailable Reason for Visit * Reason Onset Date Comments Symptoms 11/18/2022 Shortness of elaine ath and dizziness Encounter Details Date Type Department Care Team (Late st Contact Info) Description 11/18/2022 Telephone [facility] Heart [facility] [address] [facility] [address] [place] [phone] Lavern Pope MD [address] [facility] [address] [place] [address] Symptoms (Shortness of breath and dizziness) Social History Tobacco Use Types Packs/Day Years [...] 06/17/2022 How often do you attend [facility] or restorationist services? More than 4 [...] Answer Date Recorded PHQ-2 Score 1 11/19/2022 [facility] of Occupat ional Health - Occupational Stress [...] Assigned at Female 12/12/2019 6:30 PM ELECTRICAL EQUIPMENT ASSEMBLER Gender Identity Female 12/12/2019 6:30 PM ELECTRICAL EQUIPMENT ASSEMBLER Sexual Orientation Straight 04/04/2021 12 :18 PM CDT Travel History Travel Start Travel End [place] 12/06/2023 12/12/2023 COVID-19 Exposure Response Date Recorded In the last 10 days, have yo u been in contact with someone who was confirmed or suspected to have Coronavirus/COVID-19? No / Unsure 11/20/2022 12:54 PM ELECTRICAL EQUIPMENT ASSEMBLER documented as of this encounter Miscellaneous Notes * Telephone Encounter - Amaya Ochoa - 11/18/2022 4:42 PM CST [facility] Phone Message May a detailed message be left on voicemail: yes Reason for Call: Symptoms or Concerns If patient has red-flag symptoms, warm transfer to triage line Current symptom or concern: Pt states over the last 2 hours she has been having shortness of breath, dizziness, stabbing pain under her breast and right arm numbness. Pt requesting to speak to a nurse. Symptoms have been present for: 1 month on and off but this last episode has been for the last 2 hours today. Has patient previously been seen for this? Yes By : Lavern Pope Date: 11/12/22 Are there any new or worsening symptoms? Yes: Action Taken: Other: Cardiology Travel Screening: Not Applicable Thank you! [facility] TRICAL EQUIPMENT ASSEMBLER documented in this encounter Plan of Treatment Upcoming Encounters Date Type Department Care Team (Late st Contact Info) Description 03/19/2024 3:30 PM CDT Office Visit [facility] [place] [address] [facility] [address] [place] [phone] Elmer Paul MD [address] [facility] [address] [place] [address] 04/16/2024 8:30 AM CDT Lab [facility] Heart [facility] [address] [facility] [address] [place] [phone] 04/20/2024 8:45 AM CDT Office Visit [facility] Heart [facility] [address] [facility] [address] [place] [phone] Lavern Pope MD [address] [facility] [address] [place] [address] documented as of this encounter Visit Diagnoses Not on filedocumented in this encounter Additional Health Concerns Assessment Noted Time PHQ-9 Depression Total Score: 5 06/17/20 22 9:34 AM CDT documented as of this encounter Care Teams Ground Operations Superintendent Relationship Specialty Start Date End Date Carey Vuong MD [address] [facility] [place] [address] PCP - General 01/15/02 Mehreen Scott MD [address] [place] [phone] risk tech 12/15/19 Caery Vuong MD [address] [facility] [place] [address] Assigned PCP 02/22/21 Prema Hitchcock PA-C [address] [place] [address] Assigned Surgical Provider 11/04/21 Chidi Puckett MD [address] [place], [place] [address] Assigned Sleep Provider 02/17/22 10/31/23 Harriet Lindsay Personal Advocate & Liaison (PAL) 06/17/22 Aisha Murdock PA-C [facility] [address] [place] [address] Assigned Neuroscience Provider 06/08/22 11/28/23 Lavern Pope MD [address] [place] [address] Cardiovascular Disease 11/11/22 Lavern Pope MD [address] [place] [address] Assigned Heart and Vascular Provider 11/16/22 Elmer Paul MD [address] [place] [address] Allergy & Immunology 02/17/23 Elmer Paul MD [address] [place] [address] Assigned Allergy Provider 04/26/23 Batool Torres NP [address] [place] [address] Nurse Practitioner Pulmonary Disease 08/11/23 [place] [address] [place] [address] Nurse Practitioner Nurse Practitioner 10/29/23 Batool Torres NP [address] [place] [address] Assigned Pulmonology Provider 12/25/23 documented as of this encounter
--- OUTSIDE RECORDS SUMMARY | 2023-12-29 23:15 | XMS_ITS | Encounter Summary ---
Author Name Unknown Organization [place] Address [address] [place] [address] Care Team Providers Care L D Rn Name Role Phone Carey Vuong MD Primary Care Provider [phone] Mehreen Scott MD Unavailable [phone] Carey Vuong MD Unavailable [phone] Prema Hitchcock PA-C Unavailable [phone] Chidi Puckett MD Unavai lable Harriet Lindsay Unavailable Unavailable Aisha Murdock PA-C Unavailable [phone] Lavern Pope MD Unavailable [phone] Lavern Pope MD Unavailable [phone] Elmer Paul MD Unavailable [phone] Elmer Paul MD Unavailable [phone] Batool Torres NP Unavailable [phone] Marlene Benoit NP Unavailable [phone] Batool Torres NP Unavailable Encounter Details Date Type Department Care Team (Late st Contact Info) Description 12/24/2021 MyC Medical Advice [facility] [address] [facility] [address] [place] [address] Clare Chu Social History Tobacco Use Types Packs/Day Years [...] and Family Not on file 04/24/2021 Attends Holiness Services Not on file 04/24 Active Member [...] points; Administer PHQ-9 if positive 0 08/28/2021 [facility] [place] of Occupat ional Health - Occupational Stress [...] slept in a long-term (including now)? No 04/24/2021 Education Answer Date Recorded What is the highest level of school you have completed or the highest degree you have received? Some college, no degree 12/12/2019 Sex and Gender Information Value Date Recorded Sex Assigned at Female 12/12/2019 6:30 PM MYSQL DATABASE DEVELOPER Gender Identity Female 12/12/2019 6:30 PM MYSQL DATABASE DEVELOPER Sexual Orientation Straight 04/04/2021 12 :18 PM CDT Travel History Travel Start Travel End [place] 12/06/2023 12/12/2023 documented as of this encounter Plan of Treatment Upcoming Encounters Date Type Department Care Team (Late st Contact Info) Description 03/19/2024 3:30 PM CDT Office Visit [facility] [address] [place] [phone] Elmer Paul MD [address] [place] [id number] 04/16/2024 8:30 AM CDT Lab [facility] [address] [facility] [address] [place] [phone] 04/20/2024 8:45 AM CDT Office Visit [facility] [place] [address] [facility] [address] [place] [phone] Lavern Pope MD [address] [facility] [address] [place] [address] documented as of this encounter Visit Diagnoses Not on filedocumented in this encounter Additional Health Concerns Assessment Noted Time PHQ-9 Depression Total Score: 4 08/29/20 21 7:01 AM CDT documented as of this encounter Care Teams L D Rn Relationship Specialty [place] [address] [place] [address] [place] [address] PCP - General 01/15/02 Mehreen Scott MD [address] [place] [phone] agile coach 12/15/19 [place] [address] [place] [address] [place] [address] Assigned PCP 02/22/21 Prema Hitchcock PA-C [address] [facility] [place] [address] Assigned Surgical Provider 11/04/21 Chidi Puckett MD [address] [place], [place] [address] Assigned Sleep Provider 02/17/22 10/31/23 Harriet Lindsay Personal Advocate & Liaison (PAL) 06/17/22 Aisha Murdock PA-C [facility] [address] [place] [address] Assigned Neuroscience Provider 06/08/22 11/28/23 Lavern Pope MD [address] [facility] [address] [place] [address] Cardiovascular Disease 11/11/22 Lavern Pope MD [address] [facility] [address] [place] [address] Assigned Heart and Vascular Provider 11/16/22 Elmer Paul MD [address] [place] [address] Allergy & Immunology 02/17/23 Elmer Paul MD [address] [place] [address] Assigned Allergy Provider 04/26/23 Batool Torrse NP [address] [facility] [place] [address] Nurse Practitioner Pulmonary Disease 08/11/23 [place] [address] [place] [address] Nurse Practitioner Nurse Practitioner 10/29/23 Batool Torres NP [address] [place] [address] Assigned Pulmonology Provider 12/25/23 documented as of this encounter
--- OUTSIDE RECORDS SUMMARY | 2023-12-29 23:15 | XMS_ITS | Encounter Summary ---
Author Name Unknown Organization [place] Address [address] [place] [address] Care Team Providers Care Torpedo Worker Name Role Phone Carey Vuong MD Primary Care Provider [phone] Mehreen Scott MD Unavailable [phone] Carey Vuong MD Unavailable Prema Hitchcock PA-C Unavailable +[phone] Chidi Puckett MD Unavai lable Harriet Lindsay Unavailable Unavailable Aisha Murdock PA-C Unavailable [phone] Lavern Pope MD Unavailable [phone] Lavern Pope MD Unavailable [phone] Elmer Paul MD Unavailable [phone] Elmer Paul MD Unavailable [phone] Batool Torres NP Unavailable Marlene Benoit NP Unavailable [phone] Batool Torres NP Unavailable [phone] Encounter Details Date Type Department Care Team (Late st Contact Info) Description 11/21/2022 MyC Medical Advice [facility] Heart [facility] [address] [facility] [address] [place] [phone] Lavern Pope MD [address] [facility] [address] [place] [id number] Social History Tobacco Use Types Packs/Day Years [...] Answer Date Recorded PHQ-2 Score 1 11/19/2022 [facility] [place] of Occupat ional Health - Occupational Stress [...] Sex Assigned at Female 12/12/2019 6:30 PM NEWSSTAND VENDOR Gender Identity Female 12/12/2019 6:30 PM NEWSSTAND VENDOR Sexual Orientation Straight 04/04/2021 12 :18 PM CDT Travel History Travel Start Travel End [place] 12/06/2023 12/12/2023 COVID-19 Exposure Response Date Recorded In the last 10 days, have yo u been in contact with someone who was confirmed or suspected to have Coronavirus/COVID-19? No / Unsure 11/24/2022 7:12 PM NEWSSTAND VENDOR documented as of this encounter Plan of Treatment Upcoming Encounters Date Type Department Care Team (Late st Contact Info) Description 03/19/2024 3:30 PM CDT Office Visit [facility] [place] [address] [facility] [address] [place] [phone] Elmer Paul MD [address] [facility] [address] [place] [address] 04/16/2024 8:30 AM CDT Lab [facility] [address] [facility] [address] [place] [phone] 04/20/2024 8:45 AM CDT Office Visit [facility] [address] [facility] [address] [place] [phone] Lavern Pope MD [address] [facility] [address] [place] [address] documented as of this encounter Visit Diagnoses Not on filedocumented in this encounter Additional Health Concerns Assessment Noted Time PHQ-9 Depression Total Score: 6 11/19/20 22 2:05 PM NEWSSTAND VENDOR documented as of this encounter Care Teams Torpedo Worker Relationship Specialty [place] [address] [place] [address] [place] [address] PCP - General 01/15/02 Mehreen Scott MD [address] [place] [phone] military science teacher 12/15/19 Carey Vuong MD [address] [facility] [place] [address] Assigned PCP 02/22/21 Prema Hitchcock PA-C [address] [facility], [place] [address] Assigned Surgical Provider 11/04/21 Chidi Puckett MD [address] [facility] [address] [place], [place] [address] Assigned Sleep Provider 02/17/22 10/31/23 Harriet Lindsay Personal Advocate & Liaison (PAL) 06/17/22 Aisha Murdock PA-C [facility] 6545 [place] [address] Assigned Neuroscience Provider 06/08/22 11/28/23 Lavern Pope MD [address] [facility] [address] [place], [place] [address] Cardiovascular Disease 11/11/22 Lavern Pope MD [address] [facility] 275 [place], [place] [address] Assigned Heart and Vascular Provider 11/16/22 Elmer Paul MD [address] [facility] [address] [address], [address] [place], [place] [address] Allergy & Immunology 02/17/23 Elmer Paul MD [address] [facility] [address], [address] [place], [place] [address] Assigned Allergy Provider 04/26/23 Batool Torres, HOME HEALTH CARE SOCIAL WORKER 1655 [place] [address] Nurse Practitioner Pulmonary Disease 08/11/23 [place] [address] [place] [address] Nurse Practitioner Nurse Practitioner 10/29/23 Batool Torres NP [address] [place] [address] Assigned Pulmonology Provider 12/25/23 documented as of this encounter
--- OUTSIDE RECORDS SUMMARY | 2023-12-29 23:15 | XMS_ITS | Encounter Summary ---
Author Name Unknown Organization [place] Address [address] [place] [address] Care Team Providers Care Head Of Partner Development Name Role Phone Carey Vuong MD Primary Care Provider [phone] Mehreen Scott MD Unavailable [phone] Carey Vuong MD Unavailable Prema Hitchcock PA-C Unavailable +[phone] Chidi Puckett MD Unavai lable Harriet Lindsay Unavailable Unavailable Aisha Murdock PA-C Unavailable [phone] Lavern Pope MD Unavailable [phone] Lavern Pope MD Unavailable [phone] Elmer Paul MD Unavailable [phone] Elmer Paul MD Unavailable [phone] Batool Torres NP Unavailable Marlene Benoit NP Unavailable [phone] Batool Torres NP Unavailable Encounter Details Date Type Department Care Team (Late st Contact Info) Description 07/19/2022 MyC Medical Advice [facility] [address] [place] [address] Carey Vuong MD [address] [facility] [place] [address] Social History Tobacco Use Types Packs/Day Years [...] you attend [facility] or bahai services? More than 4 times per year 06/17/2022 Do you belong to any clubs o r organizations such as druze groups, unions, fraternal or athletic groups, or [...] PHQ-2 Answer Date Recorded PHQ-2 Score 2 06/17/2022 [facility] [place] of Occupat ional Health - Occupational Stress [...] Sex Assigned at Female 12/12/2019 6:30 PM CHIEF MEDICAL TECHNOLOGIST Gender Identity Female 12/12/2019 6:30 PM CHIEF MEDICAL TECHNOLOGIST Sexual Orientation Straight 04/04/2021 12 :18 PM CDT Travel History Travel Start Travel End [place] 12/06/2023 12/12/2023 COVID-19 Exposure Response Date Recorded In the last 10 days, have yo u been in contact with someone who was confirmed or suspected to have Coronavirus/COVID-19? No / Unsure 07/22/2022 2:32 PM CDT documented as of this encounter Plan of Treatment Upcoming Encounters Date Type Department Care Team (Late st Contact Info) Description 03/19/2024 3:30 PM CDT Office Visit [facility] [place] [address] [facility] [address] [place] [phone] Elmer Paul MD [address] [facility] [address] [place] [address] 04/16/2024 8:30 AM CDT Lab [facility] [address] [facility] [address] [place] [phone] 04/20/2024 8:45 AM CDT Office Visit [facility] [address] [facility] [address] [place] [phone] Lavern Pope MD [address] [facility] [address] [place] [address] documented as of this encounter Visit Diagnoses Not on filedocumented in this encounter Additional Health Concerns Assessment Noted Time PHQ-9 Depression Total Score: 5 06/17/20 22 9:34 AM CDT documented as of this encounter Care Teams Head Of Partner Development Relationship Specialty Start Date End Date Carey Vuong MD [address] [place] [address] [place] [address] PCP - General 01/15/02 Mehreen Scott MD [address] [place] [phone] staff air defense officer 12/15/19 Carey Vuong MD [address] [facility] [place] [address] Assigned PCP 02/22/21 Prema Hitchcock PA-C [address] [facility] [place] [address] Assigned Surgical Provider 11/04/21 Chidi Puckett MD [address] [facility] 106 [place], [place] [address] Assigned Sleep Provider 02/17/22 10/31/23 Harriet Lindsay Personal Advocate & Liaison (PAL) 06/17/22 Aisha Murdock PA-C [facility] [address] [facility] [place] [address] Assigned Neuroscience Provider 06/08/22 11/28/23 Lavern Pope MD [address] [facility] 275 [place], [place] [address] Cardiovascular Disease 11/11/22 Lavern Pope MD [address] [facility] 275 [place], [place] [address] Assigned Heart and Vascular Provider 11/16/22 Elmer Paul MD [address], [address] [place] [address] Allergy & Immunology 02/17/23 Elmer Paul MD [address] [facility] [address], [address] [place] [address] Assigned Allergy Provider 04/26/23 Batool Torres WARP TRUCKER 1655 [place] [address] Nurse Practitioner Pulmonary Disease 08/11/23 [place] [address] [place] [address] Nurse Practitioner Nurse Practitioner 10/29/23 Batool Torres NP 1655 [place] [address] Assigned Pulmonology Provider 12/25/23 documented as of this encounter
--- OUTSIDE RECORDS SUMMARY | 2023-12-29 23:15 | XMS_ITS | Encounter Summary ---
Author Name Unknown Organization [facility] Address [address] [place] [address] Care Team Providers Care Doctor Podiatric Medicine Name Role Phone Carey Vuong MD Primary Care Provider [phone] Mehreen Scott MD Unavailable [phone] Carey Vuong MD Unavailable [phone] Prema Hitchcock PA-C Unavailable [phone] Chidi Puckett MD Unavai lable Harriet Lindsay Unavailable Unavailable Aisha Murdock PA-C Unavailable [phone] Lavern Pope MD Unavailable [phone] Lavern Pope MD Unavailable [phone] Elmer Paul MD Unavailable [phone] Elmer Paul MD Unavailable [phone] Batool Torres NP Unavailable Marlene Benoit NP Unavailable Batool Torres NP Unavailable [phone] Reason for Visit * Reason Onset Date Comments Procedure 08/09/2022 L5-S1 ILESI Encounter Details Date Type Department Care Team (Late st Contact Info) Description 08/09/2022 Telephone [facility] [place] [id number] [facility] [address] [place] [address] Pain Management Program, [facility] Procedure (L5-S1 ILESI ) Social History Tobacco Use Types [...] do you attend [facility] or baptism services? More than 4 times [...] Answer Date Recorded PHQ-2 Score 2 06/17/2022 [facility] [place] of Occupat ional Health - Occupational Stress [...] Sex Assigned at Female 12/12/2019 6:30 PM AUTOMATION ANALYST Gender Identity Female 12/12/2019 6:30 PM AUTOMATION ANALYST Sexual Orientation Straight 04/04/2021 12 :18 PM CDT Travel History Travel Start Travel End [place] 12/06/2023 12/12/2023 COVID-19 Exposure Response Date Recorded In the last 10 days, have yo u been in contact with someone who was confirmed or suspected to have Coronavirus/COVID-19? No / Unsure 08/07/2022 1:57 PM CDT documented as of this encounter Miscellaneous Notes * Telephone Encounter - Virginia Smith - 08/12/2022 8:43 AM CDT Screening Questions for Radiology Injections: Injection to be done at which interventional clinic site? [facility] Procedure ordered by Viktor Procedure ordered? L5-S1 ILESI ??? Transforaminal Cervical OLIVIA - Send to [facility] - No [facility] providers perform this procedure What insurance would patient like us to bill for this procedure? [facility] ?? Worker's comp or MVA (motor vehicle accident) -Any injection DO NOT SCHEDULE and route to Lady Ackerman. ?? [employer] insurance - For SI joint injections, DO NOT SCHEDULE and route to Mary [place]. ?? ALL BCBS, Humana and HP CIGNA - DO NOT SCHEDULE and route to Mary Fer Is an housekeeping associate needed? No Patient has a bus driver home? (Review Grid) YES: Informed Any chance of ? Not Applicable If YES, do NOT schedule and route to automatic spooler operator Is patient actively being treated for cancer or immunocompromised? No If YES, do NOT schedule and route to automatic spooler operator Does the patient have a bleeding or clotting disorder? No ?? If YES, okay to schedule AND route to RN nurse pool. (For any patients with platelet count <100, RN must forward to provider) Is patient taking any Blood Thinners OR Antiplatelet medication? No If hold needed, do NOT schedule, route to automatic spooler operator ??? Examples: o Blood Thinners: (Coumadin, Warfarin, Jantoven, Pradaxa, Xarelto, Eliquis, Edoxaban, Enoxaparin, Lovenox, Heparin, Arixtra, Fondaparinux or Fragmin) o Antiplatelet Medications: (Plavix, Brilinta or Effient) Is patient taking any aspirin products (includes Excedrin and Fiorinal)? No ?? If more than 325mg/day, OK to schedule; Instruct Pt to decrease to less than 325 mg for 7 days AND route to automatic spooler operator ?? For CERVICAL procedures, hold all aspirin products for 6 days. ?? Tell Pt that if aspirin product is not held for 6 days, the procedure WILL BE cancelled. Any allergies to contrast dye, iodine, shellfish, or numbing and steroid medications? No ??? If YES, schedule and add allergy information to appointment notes AND route to the automatic spooler operator ??? If OLIVIA and Contrast Dye / Iodine Allergy? DO NOT SCHEDULE, route to automatic spooler operator ??? Allergies: Penicillins Does patient have an [...] has concerns about the timing, send to automatic spooler operator Does patient have an MRI/CT? YES: 2021 Include Date and Check Procedure Scheduling Grid to see if required. ?? Was the MRI/CT done within the last 3 years? Yes ?? If no route to nuts and bolts assembler ?? If yes, where was the MRI/CT done? [place] ?? Refer to PACS Transmissions list for approved external locations and route to nuts and bolts assembler High Priority ?? If MRI was not done at approved external location do NOT schedule and route to automatic spooler operator. ?? If patient has an imaging disc, the injection MAY be scheduled but patient must bring disc to appt or appt will be cancelled. Procedure Specific Instructions: ??? If celiac plexus [...] directed prior to the scheduled appointment time: [place]: 30 minutes before; if IV needed 1 hour before ?? For patients 85 or older we recommend having an adult stay w/ them for the remainder of the day. ?? If the patient is Diabetic, remind them to bring their glucometer. Does the patient have any questions? NO Virginia Smith [facility] * Telephone Encounter - Forrest Comer MD - 08/09/2022 11:43 AM CDT L5-S1 ILESI * Telephone Encounter - Virginia Smith - 08/09/2022 10:47 AM CDT My clinical question is: Reason for Referral: Procedure Order Procedure: Injection to be Determined by Global Sourcing Manager Scheduling Instructions: [employer] [facility] will call you to coordinate care as prescribed your provider. If you don???t hear from a tour sales representative within 2 business days, please call . Additional Information: evaluation for procedure please. would likely benefit from facet and trigger point injections. cervical and lumbar pain Please review Virginia Smith [facility] documented in this encounter Plan of Treatment Upcoming Encounters Date Type Department Care Team (Late st Contact Info) Description 03/19/2024 3:30 PM CDT Office Visit [facility] Specialty [address] [place] [address] Elmer Paul MD [address] [facility] [address] [place] [address] 04/16/2024 8:30 AM CDT Lab [facility] [address] [facility] [address] [place] [phone] 04/20/2024 8:45 AM CDT Office Visit [facility] [address] [facility] [address] [place] [phone] Lavern Pope MD [address] [facility] [address] [place] [phone] documented as of this encounter Visit Diagnoses Not on filedocumented in this encounter Additional Health Concerns Assessment Noted Time PHQ-9 Depression Total Score: 5 06/17/20 22 9:34 AM CDT documented as of this encounter Care Teams Doctor Podiatric Medicine Relationship Specialty Start Date End Date Carey Vuong MD [address] [place] [address] [place] [address] PCP - General 01/15/02 Mehreen Scott MD [address] [facility] 100 [place] [phone] tour sales representative 12/15/19 Carey Vuong MD [address] [place] [address] [place] [address] Assigned PCP 02/22/21 Prema Hitchcock PA-C [address] [place], [place] [address] Assigned Surgical Provider 11/04/21 Chidi Puckett MD [address] [facility] [address] [place] [address] Assigned Sleep Provider 02/17/22 10/31/23 Harriet Lindsay Personal Advocate & Liaison (PAL) 06/17/22 Aisha Murdock PA-C [facility] [address] [place] [address] Assigned Neuroscience Provider 06/08/22 11/28/23 Lavern Pope MD [address] [facility] [address] [place], [place] [address] Cardiovascular Disease 11/11/22 Lavern Pope MD [address] [facility] [address] [place], [place] [address] Assigned Heart and Vascular Provider 11/16/22 Elmer Paul MD [address], [address] [place], [place] [address] Allergy & Immunology 02/17/23 Elmer Paul MD [address], [address] [place], [place] [address] Assigned Allergy Provider 04/26/23 Batool Torres NP [address] [facility] [place] [address] Nurse Practitioner Pulmonary Disease 08/11/23 [place] [address] [place] [address] Nurse Practitioner Nurse Practitioner 10/29/23 Batool Torres NP 1655 [place] [address] Assigned Pulmonology Provider 12/25/23 documented as of this encounter
--- OUTSIDE RECORDS SUMMARY | 2023-12-29 23:15 | XMS_ITS | Encounter Summary ---
Author Name Unknown Organization [place] Address [address] [place] [address] Care Team Providers Care Fabrication And Assembly Supervisor Name Role Phone Carey Vuong MD Primary Care Provider [phone] Mehreen Scott MD Unavailable [phone] Carey Vuong MD Unavailable Prema Hitchcock PA-C Unavailable +[phone] Chidi Puckett MD Unavai lable Harriet Lindsay Unavailable Unavailable Aisha Murdock PA-C Unavailable [phone] Lavern Pope MD Unavailable [phone] Lavern Pope MD Unavailable [phone] Elmer Paul MD Unavailable [phone] Elmer Paul MD Unavailable [phone] Batool Torres NP Unavailable Marlene Benoit NP Unavailable [phone] Batool Torres NP Unavailable [phone] Encounter Details Date Type Department Care Team (Late st Contact Info) Description 11/12/2022 MyC Medical Advice [facility] [address] [facility] [address] [place] [phone] Carey Vuong MD [address] [facility] [place] [address] Social History Tobacco Use Types Packs/Day Years [...] attend [facility] or buddhism services? More than 4 times per year 06/17/2022 Do you belong to any clubs o r organizations such as mandaeism groups, unions, fraternal or athletic groups, or [...] Answer Date Recorded PHQ-2 Score 2 06/17/2022 [facility] [place] of Occupat ional Health - Occupational Stress [...] Sex Assigned at Female 12/12/2019 6:30 PM AIRPORT MANAGER Gender Identity Female 12/12/2019 6:30 PM AIRPORT MANAGER Sexual Orientation Straight 04/04/2021 12 :18 PM CDT Travel History Travel Start Travel End [place] 12/06/2023 12/12/2023 COVID-19 Exposure Response Date Recorded In the last 10 days, have yo u been in contact with someone who was confirmed or suspected to have Coronavirus/COVID-19? No / Unsure 11/14/2022 12:46 PM AIRPORT MANAGER documented as of this encounter Miscellaneous Notes * Telephone Encounter - Carey Vuong MD - 11/19/2022 12:45 PM AIRPORT MANAGER pls put her on my schedule for today at 2 PM and call her, see if this works for her. Could potentially do virtual, if that is the only option for her. Carey Vuong M.D. ORT MANAGER documented in this encounter Plan of Treatment Upcoming Encounters Date Type Department Care Team (Late st Contact Info) Description 03/19/2024 3:30 PM CDT Office [facility] [place] [address] [facility] [address] [place] [phone] Elmer Paul MD [address] [facility] [address] [place], [place] [address] 04/16/2024 8:[address] [facility] Heart [facility] [address] [facility] [address] [place] [phone] 04/20/2024 8:45 AM CDT Office Visit [facility] [address] [facility] [address] [place] [address] Lavern Pope MD [address] [facility] [address] [place], [place] [address] documented as of this encounter Visit Diagnoses Not on filedocumented in this encounter Additional Health Concerns Assessment Noted Time PHQ-9 Depression Total Score: 5 06/17/20 22 9:34 AM CDT documented as of this encounter Care Teams Fabrication And Assembly Supervisor Relationship Specialty Start Date End Date Carey Vuong MD [address] [facility] [place] [address] PCP - General 01/15/02 Mehreen Scott MD [address] [place] [address] bridge crane operator 12/15/19 Carey Vuong MD [address] [place] [address] Assigned PCP 02/22/21 Prema Hitchcock PA-C [address] [place] [address] Assigned Surgical Provider 11/04/21 Chidi Puckett MD [address] [place], [place] [address] Assigned Sleep Provider 02/17/22 10/31/23 Harriet Lindsay Personal Advocate & Liaison (PAL) 06/17/22 Aisha Murdock PA-C [facility] [address] [place] [address] Assigned Neuroscience Provider 06/08/22 11/28/23 Lavern Pope MD [address] [facility] [address] [place] [address] Cardiovascular Disease 11/11/22 Lavern Pope MD [address] [facility] [address] [place], [place] [address] Assigned Heart and Vascular Provider 11/16/22 Elmer Paul MD [address] [place] [address] Allergy & Immunology 02/17/23 Elmer Paul MD [address], [facility] 200 [place] [address] Assigned Allergy Provider 04/26/23 Batool Torres, APPAREL PATTERNMAKER 16[address] [facility] [place] [address] Nurse Practitioner Pulmonary Disease 08/11/23 [place] [address] [place] [address] Nurse Practitioner Nurse Practitioner 10/29/23 Batool Torres, ZENOBIA [address] [facility] [place] [address] Assigned Pulmonology Provider 12/25/23 documented as of this encounter
--- OUTSIDE RECORDS SUMMARY | 2023-12-29 23:15 | XMS_ITS | Encounter Summary ---
Author Name Unknown Organization [place] Address [address] [place] [address] Care Team Providers Care Tyre Finisher And Examiner Name Role Phone Carey Vuong MD Primary Care Provider [phone] Mehreen Scott MD Unavailable +[phone] Carey Vuong MD Unavailable Prmea Hitchcock PA-C Unavailable +[phone] Chidi Puckett MD Unavai lable Harriet Lindsay Unavailable Unavailable Aisha Murdock PA-C Unavailable +[phone] Lavern Pope MD Unavailable [phone] Lavern Pope MD Unavailable [phone] Elmer Paul MD Unavailable [phone] Elmer Paul MD Unavailable [phone] Batool Torres NP Unavailable Marlene Benoit NP Unavailable [phone] Batool Torres NP Unavailable [phone] Encounter Details Date Type Department Care Team (Late st Contact Info) Description 08/20/2022 MyC Medical Advice [facility] [address] [place] [address] Carey Vuong MD [address] [facility] [place] [address] Social History Tobacco Use Types Packs/Day Years [...] week 06/17/2022 How often do you attend [facility] or anglican services? More than 4 times per year [...] Answer Date Recorded PHQ-2 Score 2 06/17/2022 [facility] [place] of Occupat ional Health - Occupational Stress [...] Sex Assigned at Female 12/12/2019 6:30 PM FLYER MAKER Gender Identity Female 12/12/2019 6:30 PM FLYER MAKER Sexual Orientation Straight 04/04/2021 12 :18 PM [...] Description 03/19/2024 3:30 PM CDT [facility] [place] [address] [facility] [address] [place] [phone] Elmer Paul MD [address] [facility] [address] [place] [address] 04/16/2024 8:30 AM CDT Lab [facility] [address] [facility] [address] [place] [phone] 04/20/2024 8:45 AM CDT Office Visit [facility] [address] [facility] [address] [place] [phone] Lavern Pope MD [address] [facility] [address] [place] [address] documented as of this encounter Visit Diagnoses Not on filedocumented in this encounter Additional Health Concerns Assessment Noted Time PHQ-9 Depression Total Score: 5 06/17/20 22 9:34 AM CDT documented as of this encounter Care Teams Tyre Finisher And Examiner Relationship Specialty Start Date End Date Carey Vuong MD [address] [place] [address] [place] [address] PCP - General 01/15/02 Mehreen Scott MD [address] [place] [phone] golf tournament consultant 12/15/19 Carey Vuong MD [address] [facility] [place] [address] Assigned PCP 02/22/21 Prema Hitchcock PA-C [address] [facility] [address] Assigned Surgical Provider 11/04/21 Chidi Puckett MD [address] [facility] 106 [place], [place] [address] Assigned Sleep Provider 02/17/22 10/31/23 Harriet Lindsay Personal Advocate & Liaison (PAL) 06/17/22 Aisha Murdock PA-C [facility] [address] [place] [address] Assigned Neuroscience Provider 06/08/22 11/28/23 Lavern Pope MD [address] [facility] 275 [place], [place] [address] Cardiovascular Disease 11/11/22 Lavern Pope MD [address] [facility] 275 [place], [place] [address] Assigned Heart and Vascular Provider 11/16/22 Elmer Paul MD [address], [address] [place] [address] Allergy & Immunology 02/17/23 Elmer Paul MD [address] [facility] [address], [address] [place] [address] Assigned Allergy Provider 04/26/23 Batool Torres CONSULTING TECHNICAL DIRECTOR 1655 [place] [address] Nurse Practitioner Pulmonary Disease 08/11/23 [place] [address] [place] [address] Nurse Practitioner Nurse Practitioner 10/29/23 Batool Torres NP [address]55 [place] [address] Assigned Pulmonology Provider 12/25/23 documented as of this encounter
--- OUTSIDE RECORDS SUMMARY | 2023-12-29 23:15 | XMS_ITS | Encounter Summary ---
Author Name Unknown Organization [place] Address [address] [place] [address] Care Team Providers Care Rural Mail Contractor Name Role Phone Carey Vuong MD Primary Care Provider [phone] Mehreen Scott MD Unavailable [phone] Carey Vuong MD Unavailable +[phone] Prema Hitchcock PA-C Unavailable +[phone] Chidi Puckett MD Unavai lable Harriet Lindsay Unavailable Unavailable Aisha Murdock PA-C Unavailable [phone] Lavern Pope MD Unavailable [phone] Lavern Pope MD Unavailable [phone] Elmer Paul MD Unavailable [phone] Elmer Palu MD Unavailable [phone] Batool Torres NP Unavailable [phone] Marlene Benoit NP Unavailable [phone] Batool Torres NP Unavailable [phone] Encounter Details Date Type Department Care Team (Late st Contact Info) Description 04/09/2022 [facility] Medical Advice [facility] [address] [address] Mora Randle Social History Tobacco Use Types Packs/Day Years [...] and Family Not on file 04/24/2021 Attends Zoroastrian Services Not on file 04/24 Active Member [...] points; Administer PHQ-9 if positive 0 08/28/2021 [facility] [place] of Occupat ional Health - Occupational Stress [...] slept in a assisted (including now)? No 04/24/2021 Education Answer Date Recorded What is the highest level of school you have completed or the highest degree you have received? Some college, no degree 12/12/2019 Sex and Gender Information Value Date Recorded Sex Assigned at Female 12/12/2019 6:30 PM BANKING SERVICES ADVISOR Gender Identity Female 12/12/2019 6:30 PM BANKING SERVICES ADVISOR Sexual Orientation Straight 04/04/2021 12 :18 PM CDT Travel History Travel Start Travel End [place] 12/06/2023 12/12/2023 COVID-19 Exposure Response Date Recorded In the last 10 days, have yo u been in contact with someone who was confirmed or suspected to have Coronavirus/COVID-19? No / Unsure 04/05/2022 6:55 AM CDT documented as of this encounter Plan of Treatment Upcoming Encounters Date Type Department Care Team (Late st Contact Info) Description 03/19/2024 3:30 PM CDT Office Visit [address] [place] [address] Elmer Paul MD [address] [facility], [address] [place] [address] 04/16/2024 8:30 AM CDT Lab [facility] [address] [facility] [address] [place] [phone] 04/20/2024 8:45 AM CDT Office Visit [facility] [address] [facility] [address] [place] [phone] Lavern Pope MD [address] [facility] [address] [place] [address] documented as of this encounter Visit Diagnoses Not on filedocumented in this encounter Additional Health Concerns Assessment Noted Time PHQ-9 Depression Total Score: 4 08/29/20 21 7:01 AM CDT documented as of this encounter Care Teams Rural Mail Contractor Relationship Specialty Start Date End Date Carey Vuong MD [address] [place] [address] [place] [address] PCP - General 01/15/02 Mehreen Scott MD [address] [facility] 100 [place] [phone] test borer 12/15/19 [place] [address] [place] [address] [place] [address] Assigned PCP 02/22/21 Prema Hitchcock PA-C [address] [place] [address] Assigned Surgical Provider 11/04/21 Chidi Puckett MD [address] [place], [place] [address] Assigned Sleep Provider 02/17/22 10/31/23 Harriet Lindsay Personal Advocate & Liaison (PAL) 06/17/22 Aisha Murdock PA-C [facility] [address] [facility] [address] [place], [place] [address] Assigned Neuroscience Provider 06/08/22 11/28/23 Lavern Pope MD [address] [facility] [address] [place], [place] [address] Cardiovascular Disease 11/11/22 Lavern Pope MD [address] [facility] [address] [place], [place] [address] Assigned Heart and Vascular Provider 11/16/22 Elmer Paul MD [address], [address] [place], [place] [address] Allergy & Immunology 02/17/23 Elmer Paul MD [address] [facility] [address] [place], [place] [address] Assigned Allergy Provider 04/26/23 Batool Torres NP [address]55 [place], [place] [address] Nurse Practitioner Pulmonary Disease 08/11/23 [place] [address] [place] [address] Nurse Practitioner Nurse Practitioner 10/29/23 Batool Torres NP [address] [place] [address] Assigned Pulmonology Provider 12/25/23 documented as of this encounter
--- OUTSIDE RECORDS SUMMARY | 2023-12-29 23:15 | XMS_ITS | Encounter Summary ---
Author Name Unknown Organization [facility] Address [address] [place] [address] Care Team Providers Care Php Website Developer Name Role Phone Carey Vuong MD Primary Care Provider [phone] Mehreen Scott MD Unavailable [phone] Carey Vuong MD Unavailable [phone] Lavern Gonzalez MD Unavailable [phone] Prema Hitchcock PA-C Unavailable [phone] Chidi Puckett MD Unavai lable Harriet Lindsay Unavailable Unavailable Aisha MurdockC Unavailable [phone] Lavern Pope MD Unavailable [phone] Lavern Pope MD Unavailable [phone] Elmer Paul MD Unavailable [phone] Elmer Paul MD Unavailable [phone] Batool Torres NP Unavailable Marlene Benoit NP Unavailable [phone] Batool Torres SALON LEADER Unavailable Encounter Details Date Type Department Care Team (Late st Contact Info) Description 09/21/2021 Nicole Medical Advice [facility] [address] [place] [address] Yana Gaffney, [place] Social History Tobacco Use Types Packs/Day Years [...] and Family Not on file 04/24/2021 Attends Anabaptism Services Not on file 04/24 Active Member [...] points; Administer PHQ-9 if positive 0 08/28/2021 [facility] [place] of Occupat ional Health - [...] slept in a chcf (including now)? No 04/24/2021 Education Answer Date Recorded What is the highest level of school you have completed or the highest degree you have received? Some college, no degree 12/12/2019 Sex and Gender Information Value Date Recorded Sex Assigned at Female 12/12/2019 6:30 PM TRACTOR ENGINE MECHANIC Gender Identity Female 12/12/2019 6:30 PM TRACTOR ENGINE MECHANIC Sexual Orientation Straight 04/04/2021 12 :18 [...] Description 03/19/2024 3:30 PM CDT Office Visit [place] [id number] [facility] [address] [place] [phone] Elmer Paul MD [address] [facility] [address] [place] [address] 04/16/2024 8:30 AM CDT Lab [facility] [address] [facility] [address] [place] [phone] 04/20/2024 8:45 AM CDT Office Visit [facility] 6[address] [facility] [address] [place] [phone] Lavern Pope MD 6537 [facility] [address] [place] [address] documented as of this encounter Visit Diagnoses Not on filedocumented in this encounter Additional Health Concerns Assessment Noted Time PHQ-9 Depression Total Score: 4 08/29/20 21 7:01 AM CDT documented as of this encounter Care Teams Php Website Developer Relationship Specialty Start Date End Date Carey Vuong MD [address] [place] [address] [place] [address] PCP - General 01/15/02 Mehreen Scott MD 36[address] [facility] 100 [place] [phone] ophthalmic dispenser 12/15/19 Carey Vuong MD [address] [place] [address] [place] [address] Assigned PCP 02/22/21 Lavern Gonzalez MD [address] [place] [address] Assigned Surgical Provider 04/29/21 11/03/21 Prema Hitchcock PA-C [address] [place] [address] Assigned Surgical Provider 11/04/21 Chidi Puckett MD [address] 106 [place] [address] Assigned Sleep Provider 02/17/22 10/31/23 Harriet Lindsay Personal Advocate & Liaison (PAL) 06/17/22 Aisha Murdock PA-C [facility] [address] [place] [address] Assigned Neuroscience Provider 06/08/22 11/28/23 Lavern Pope MD [address] [facility] [facility] [address] [place], [place] [address] Cardiovascular Disease 11/11/22 Lavern Pope MD [address] [facility] [place], [place] [address] Assigned Heart and Vascular Provider 11/16/22 Elmer Paul MD [address], [address] [place], [place] [address] Allergy & Immunology 02/17/23 Elmer Paul MD [address], [address] [place] [address] Assigned Allergy Provider 04/26/23 Batool Torres NP 1655 [place] [address] Nurse Practitioner Pulmonary Disease 08/11/23 [place] [address] [place] [address] Nurse Practitioner Nurse Practitioner 10/29/23 Batool Torres NP 1655 [place] [address] Assigned Pulmonology Provider 12/25/23 documented as of this encounter
--- OUTSIDE RECORDS SUMMARY | 2023-12-29 23:15 | XMS_ITS | Encounter Summary ---
Author Name Unknown Organization [place] Address [address] [place] [address] Care Team Providers Care Irrigation Flume Layer Name Role Phone Carey Vuong MD Primary Care Provider [phone] Mehreen Scott MD Unavailable [phone] Carey Vuong MD Unavailable Prema Hitchcock PA-C Unavailable +[phone] Chidi Puckett MD Unavai lable Harriet Lindsay Unavailable Unavailable Aisha Murdock PA-C Unavailable [phone] Lavern Pope MD Unavailable [phone] Lavern Pope MD Unavailable [phone] Elmer Paul MD Unavailable [phone] Elmer Paul MD Unavailable [phone] Batool Torres NP Unavailable Marlene Benoit NP Unavailable [phone] Batool Torres NP Unavailable Encounter Details Date Type Department Care Team (Late st Contact Info) Description 07/08/2022 MyC Medical Advice [facility] [address] [place] [address] Carey Vuong MD 3[address] [facility] [place] [address] Weight gain (Primary Dx) Social History Tobacco Use Types [...] week 06/17/2022 How often do you attend [facility] or sikhism services? More than 4 times per year [...] Answer Date Recorded PHQ-2 Score 2 06/17/2022 [facility] [place] of Occupat ional Health - Occupational Stress [...] Assigned at Female 12/12/2019 6:30 PM SUPERVISOR DRYING AND WINDING Gender Identity Female 12/12/2019 6:30 PM SUPERVISOR DRYING AND WINDING Sexual Orientation Straight 04/04/2021 12 :18 PM CDT Travel History Travel Start Travel End [place] 12/06/2023 12/12/2023 COVID-19 Exposure Response Date Recorded In the last 10 days, have yo u been in contact with someone who was confirmed or suspected to have Coronavirus/COVID-19? No / Unsure 06/17/2022 9:31 AM CDT documented as of this encounter Miscellaneous Notes * Telephone Encounter - Harriet Lindsay - 07/11/2022 10:49 AM CDT Mychart sent. Harriet Lindsay, EMT at 10:49 AM on July 11, 2022 [facility] Health Guide [phone] * Telephone Encounter - Karen Valerio, RANDALL - 07/09/2022 11:16 AM CDT Please see MyChart message. Karen Valerio RN on 07/09/2022 at 11:16 AM documented in this encounter Plan of Treatment Upcoming Encounters Date Type Department Care Team (Late st Contact Info) Description 03/19/2024 3:30 PM CDT Office Visit [facility] 65[address] [facility] 200 [place] [address] Elmer Paul MD 6561 [facility] 200 [place] [address] 04/16/2024 8:30 AM CDT Lab [facility] [address] [facility] [address] [place] [phone] 04/20/2024 8:45 AM CDT Office Visit [facility] [address] [facility] [address] [place] [phone] Lavern Pope MD [address] [facility] [address] [place] [address] documented as of this encounter Results * Vitamin D Deficiency (07/19/2022 2:48 PM CDT) Vitamin D, Total (25-Hydroxy) 58 20 - 75 ug/L 07/20/2022 10:50 AM CDT SPECIALTY CORE/PROT/ENDO Blood STRUCTURE OF RIGHT UPPER LIMB / Unknown Venipuncture / Unknown 07/19/2022 2:48 PM CDT 07/19/2022 2:55 PM CDT Narrative SPECIALTY CORE/PROT/ENDO - 07/20/2022 10:50 AM CDT Season, race, dietary intake, and treatment affect the concentration of 23-lzupgeo-Glzpvuk D. Values may decrease during winter months and increase during summer months. Values 20-29 ug/L may indicate Vitamin D insufficiency and values <20 ug/L may indicate Vitamin D deficiency. Vitamin D determination is routinely performed by an immunoassay specific for 25 hydroxyvitamin D3. ??If an individual is on vitamin D2(ergocalciferol) supplementation, please specify 25 [place] vitamin D2 and D3 level determination by LCMSMS test VITD23. Carey Vuong MD LAB - BLOOD ORDERAB LES [facility] SPECIALTY CORE/PROT/ENDO Specialty Core/Prot/Endo [address] [facility], Room [address] [place] [address], [facility] [phone] * Hemoglobin A1c (07/19/2022 2:48 PM CDT) Hemoglobin A1C 5.4 0.0 - 5.6 % 07/19/2022 3:54 PM CDT [facility] Comment: Normal <5.7% Prediabetes 5.7-6.4% ?? Diabetes 6.5% or higher Note: Adopted from ADA consensus guidelines. Blood STRUCTURE OF RIGHT UPPER LIMB / Unknown Venipuncture / Unknown 07/19/2022 2:48 PM CDT 07/19/2022 2:55 PM CDT Carey Vuong MD LAB - BLOOD ORDERAB LES [facility] [address] [facility] [address] [place] [address], [facility] [phone] * (ABNORMAL) CBC with platelets (07/19/2022 2:48 PM CDT) WBC Count 7.6 4.0 - 11.0 10e3/uL 07/19/2022 3:51 PM CDT [facility] RBC Count 4.23 3.80 - 5.20 10e6/uL 07/19/2022 3:51 PM CDT [facility] Hemoglobin 14.3 11.7 - 15.7 g/dL 07/19/2022 3:51 PM CDT [facility] Hematocrit 41.6 35.0 - 47.0 % 07/19/2022 3:51 PM CDT [facility] MCV 98 78 - 100 fL 07/19/2022 3:51 PM CDT [facility] MCH 33.8(H) 26.5 - 33.0 pg 07/19/2022 3:51 PM CDT [facility] MCHC 34.4 31.5 - 36.5 g/dL 07/19/2022 3:51 PM CDT [facility] RDW 12.2 10.0 - 15.0 % 07/19/2022 3:51 PM CDT [facility] Platelet Count 273 150 - 450 10e3/uL 07/19/2022 3:51 PM CDT [facility] Blood STRUCTURE OF RIGHT UPPER LIMB / Unknown Venipuncture / Unknown 07/19/2022 2:48 PM CDT 07/19/2022 2:55 PM CDT Narrative [facility] - 07/19/2022 3:51 PM CDT Reviewed, ok with previous Carey Vuong MD LAB - BLOOD ORDERAB LES [facility] [address] [facility] [address] [place] [address], [facility] [phone] * (ABNORMAL) Comprehensive metabolic panel (BMP + Alb, Alk Phos, ALT, AST, Total. Bili, TP) (07/19/2022 2:48 PM CDT) Pathologist [facility] Sodium 139 133 - 144 mmol/L 07/20/2022 11:19 AM CDT [facility] Potassium 4.2 3.4 - 5.3 mmol/L 07/20/2022 11:19 AM CDT [facility] Chloride 111(H) 94 - 109 mmol/L 07/20/2022 11:19 AM CDT [facility] Carbon Dioxide (CO2) 20 20 - 32 mmol/L 07/20/2022 11:19 AM CDT [facility] Anion Gap 8 3 - 14 mmol/L 07/20/2022 11:19 AM CDT [facility] Urea Nitrogen 13 7 - 30 mg/dL 07/20/2022 11:19 AM CDT [facility] Creatinine 0.87 0.52 - 1.04 mg/dL 07/20/2022 11:19 AM CDT [facility] Calcium 8.6 8.5 - 10.1 mg/dL 07/20/2022 11:19 AM CDT [facility] Glucose 95 70 - 99 mg/dL 07/20/2022 11:19 AM CDT [facility] Alkaline Phosphatase 45 40 - 150 U/L 07/20/2022 11:19 AM CDT [facility] AST 19 0 - 45 U/L 07/20/2022 11:19 AM CDT [facility] ALT 29 0 - 50 U/L 07/20/2022 11:19 AM CDT [facility] Protein Total 6.6(L) 6.8 - 8.8 g/dL 07/20/2022 11:19 AM CDT [facility] Albumin 3.9 3.4 - 5.0 g/dL 07/20/2022 11:19 AM CDT [facility] Bilirubin Total 0.2 0.2 - 1.3 mg/dL 07/20/2022 11:19 AM CDT [facility] GFR Estimate 82 >60 mL/min/1.7 3m2 07/20/2022 11:19 AM CDT [facility] Comment:Effective November 012020 eGFRcr in adults is calculated using the 2020 CKD-EPI creatinine equation which includes age and gender (Darling et al., NEJM, DOI: 10.1056/NNJVjv2284532) Blood STRUCTURE OF RIGHT UPPER LIMB / Unknown Venipuncture / Unknown 07/19/2022 2:48 PM CDT 07/19/2022 2:55 PM CDT Carey Vuong MD LAB - BLOOD ORDERAB LES [facility] [address] Lab (no room number, [facility]st floor [facility]) [place] [address], [facility] [phone] * TSH (07/19/2022 2:48 PM CDT) TSH 2.54 0.40 - 4.00 mU/L 07/20/2022 11:26 AM CDT [facility] Blood STRUCTURE OF RIGHT UPPER LIMB / Unknown Venipuncture / Unknown 07/19/2022 2:48 PM CDT 07/19/2022 2:55 PM CDT Carey Vuong MD LAB - BLOOD ORDERAB LES Performing Organization Address City/[facility]/ZIP Co de Phone Number [facility] [address] [place] [address] Lab (no room number, 1st floor of clinic) [place] [address], [facility] [phone] * (ABNORMAL) T4, free (07/19/2022 2:48 PM CDT) Free T4 0.72(L) 0.76 - 1.46 ng/dL 07/20/2022 11:20 AM CDT [facility] Blood STRUCTURE OF RIGHT UPPER LIMB / Unknown Venipuncture / Unknown 07/19/2022 2:48 PM CDT 07/19/2022 2:55 PM CDT Carey Vuong MD LAB - BLOOD ORDERAB LES [facility] [address] [place] [address] Lab (no room number, [facility] [place] [address], [facility] [phone] documented in this encounter Visit Diagnoses Diagnosis Weight gain- Primary Abnormal weight gain documented in this encounter Additional Health Concerns Assessment Noted Time PHQ-9 Depression Total Score: 5 06/17/20 22 9:34 AM CDT documented as of this encounter Care Teams Irrigation Flume Layer Relationship Specialty Start Date End Date Carey Vuong MD [address] [facility] [place] [address] PCP - General 01/15/02 Mehreen Scott MD [address] [facility] 100 [place] [address] tilesetter 12/15/19 Carey Vuong MD [address] [facility] [place] [address] Assigned PCP 02/22/21 Prema Hitchcock PA-C [address] [facility] [place] [place] [address] Assigned Surgical Provider 11/04/21 Chidi Puckett MD [address] [facility] 106 [place], [place] [address] Assigned Sleep Provider 02/17/22 10/31/23 Harriet Lindsay Personal Advocate & Liaison (PAL) 06/17/22 Aisha Murdock PA-C [facility] [address] [facility] [place] [address] Assigned Neuroscience Provider 06/08/22 11/28/23 Lavern Pope MD [address] [facility] 275 [place] [address] Cardiovascular Disease 11/11/22 Lavern Pope MD [address] [facility] [address] [place] [address] Assigned Heart and Vascular Provider 11/16/22 Elmer Paul MD [address] [place] [address] Allergy & Immunology 02/17/23 Elmer Paul MD [address], [address] [place] [address] Assigned Allergy Provider 04/26/23 Batool Torres, ZENOBIA 1655 [place] [address] Nurse Practitioner Pulmonary Disease 08/11/23 [place] [address] [place] [address] Nurse Practitioner Nurse Practitioner 10/29/23 Batool Torres, ZENOBIA [address] [place] [address] Assigned Pulmonology Provider 12/25/23 documented as of this encounter
--- OUTSIDE RECORDS SUMMARY | 2023-12-29 23:15 | XMS_ITS | Encounter Summary ---
Author Name Unknown Organization Mobile Address [address] [place] [address] Care Team Providers Care Vacuum Caster Name Role Phone Carey Vuong MD Primary Care Provider [phone] Mehreen Scott MD Unavailable +[phone] Carey Vuong MD Unavailable Prema Hitchcock PA-C Unavailable +[phone] Chidi Puckett MD Unavai lable Harriet Lindsay Unavailable Unavailable Aisha Murdock PA-C Unavailable +[phone] Lavern Poep MD Unavailable +[phone] Lavern Pope MD Unavailable +[phone] Elmer Paul MD Unavailable +[phone] Elmer Paul MD Unavailable [phone] Batool Torres NP Unavailable Marlene Benoit NP Unavailable +[phone] Batool Torres NP Unavailable Encounter Details Date Type Department Care Team (Late st Contact Info) Description 11/12/2022 MyC Medical Advice [facility] Heart [facility] [address] [facility] [address] [place] [address] Lavern Pope MD [address] [facility] [address] [place] [id number] Social History Tobacco Use Types Packs/Day Years [...] Answer Date Recorded PHQ-2 Score 2 06/17/2022 [facility] of Occupat ional Health - Occupational Stress [...] Sex Assigned at Female 12/12/2019 6:30 PM EARTH SCIENCE PROFESSOR Gender Identity Female 12/12/2019 6:30 PM EARTH SCIENCE PROFESSOR Sexual Orientation Straight 04/04/2021 12 :18 PM CDT Travel History Travel Start Travel End [place] 12/06/2023 12/12/2023 COVID-19 Exposure Response Date Recorded In the last 10 days, have yo u been in contact with someone who was confirmed or suspected to have Coronavirus/COVID-19? No / Unsure 11/14/2022 12:46 PM EARTH SCIENCE PROFESSOR documented as of this encounter Plan of Treatment Upcoming Encounters Date Type Department Care Team (Late st Contact Info) Description 03/19/2024 3:30 PM CDT Office Visit [facility] [place] [address] [facility] [address] [place] [phone] Elmer Paul MD [address] [facility] [address] [place] [address] 04/16/2024 8:30 AM CDT Lab [facility] [address] [facility] [address] [place] [phone] 04/20/2024 8:45 AM CDT Office Visit [facility] [address] [facility] [address] [place] [phone] Lavern Pope MD [address] [facility] [address] [place] [address] documented as of this encounter Visit Diagnoses Not on filedocumented in this encounter Additional Health Concerns Assessment Noted Time PHQ-9 Depression Total Score: 5 06/17/20 22 9:34 AM CDT documented as of this encounter Care Teams Vacuum Caster Relationship Specialty [place] [address] [place] [address] [place] [address] PCP - General 01/15/02 Mehreen Scott MD [address] [place] [phone] dice dealer 12/15/19 Carey Vuong MD [address] [facility] [place] [address] Assigned PCP 02/22/21 Prema Hitchcock PA-C [address] [place] [address] Assigned Surgical Provider 11/04/21 Chidi Puckett MD [address] [place], [place] [address] Assigned Sleep Provider 02/17/22 10/31/23 Harriet Lindsay Personal Advocate & Liaison (PAL) 06/17/22 Aisha Murdock PA-C [facility] [address] [place] [address] Assigned Neuroscience Provider 06/08/22 11/28/23 Lavern Pope MD [address] [facility] [address] [place], [place] [address] Cardiovascular Disease 11/11/22 Lavern Pope MD [address] [facility] [address] [place], [place] [address] Assigned Heart and Vascular Provider 11/16/22 Elmer Paul MD [address] [place], [place] [address] Allergy & Immunology 02/17/23 Elmer Paul MD [address] [place], [place] [address] Assigned Allergy Provider 04/26/23 Batool Torres, DIELECTRIC PRESS OPERATOR 1655 [place] [address] Nurse Practitioner Pulmonary Disease 08/11/23 [place] [address] [place] [address] Nurse Practitioner Nurse Practitioner 10/29/23 Batool Torres NP 1655 [place] [address] Assigned Pulmonology Provider 12/25/23 documented as of this encounter
--- OUTSIDE RECORDS SUMMARY | 2023-12-29 23:15 | XMS_ITS | Encounter Summary ---
Author Name Unknown Organization [place] Address [address] [place] [address] Care Team Providers Care Gluing Machine Operator Electronic Name Role Phone Carey Vuong MD Primary Care Provider [phone] Mehreen Scott MD Unavailable [phone] Carey Vuong MD Unavailable Prema Hitchcock PA-C Unavailable +[phone] Chidi Puckett MD Unavai lable Harriet Lindsay Unavailable Unavailable Aisha Murdock PA-C Unavailable +[phone] Lavern Pope MD Unavailable +[phone] Lavern Pope MD Unavailable +[phone] Elmer Paul MD Unavailable +[phone] Elmer Paul MD Unavailable [phone] Batool Torres NP Unavailable Marlene Benoit NP Unavailable [phone] Batool Torres NP Unavailable +[phone] Encounter Details Date Type Department Care Team (Late st Contact Info) Description 07/22/[address] [facility] [address] [facility] [address] [place] [address] Carey Vuong MD [address] [facility] [place] [address] Social History Tobacco Use Types Packs/Day Years [...] How often do you attend [facility] or hindu services? More than 4 times per year 06/17/2022 Do you belong to any clubs o r organizations such as taoist groups, unions, fraternal or athletic groups, or [...] Answer Date Recorded PHQ-2 Score 2 06/17/2022 [facility] of Occupat ional Health - Occupational Stress [...] Sex Assigned at Female 12/12/2019 6:30 PM FORKLIFT MECHANIC Gender Identity Female 12/12/2019 6:30 PM FORKLIFT MECHANIC Sexual Orientation Straight 04/04/2021 12 :18 [...] Description 03/19/2024 3:30 PM CDT Office Visit [facility] [place] [address] [facility] [address] [place] [phone] Elmer Paul MD [address] [facility] [address] [place] [address] 04/16/2024 8:30 AM CDT Lab [facility] [address] [facility] [address] [place] [phone] 04/20/2024 8:45 AM CDT Office Visit [facility] [address] [facility] [address] [place] [phone] Lavern Pope MD [address] [facility] [address] [place] [address] documented as of this encounter Visit Diagnoses Not on filedocumented in this encounter Additional Health Concerns Assessment Noted Time PHQ-9 Depression Total Score: 5 06/17/20 22 9:34 AM CDT documented as of this encounter Care Teams Gluing Machine Operator Electronic Relationship Specialty Start Date End Date Carey Vuong MD [address] [place] [address] [place] [address] PCP - General 01/15/02 Mehreen Scott MD [address] [place] [phone] manager investigations 12/15/19 Carey Vuong MD [address] [facility] [place] [address] Assigned PCP 02/22/21 Prema Hitchcock PA-C [address] [facility] [address] Assigned Surgical Provider 11/04/21 Chidi Puckett MD [address] [facility] 106 [place], [place] [address] Assigned Sleep Provider 02/17/22 10/31/23 Harriet Lindsay Personal Advocate & Liaison (PAL) 06/17/22 Aisha Murdock PA-C [facility] [address] [facility] [place] [address] Assigned Neuroscience Provider 06/08/22 11/28/23 Lavern Pope MD [address] [facility] 275 [place], [place] [address] Cardiovascular Disease 11/11/22 Lavern Pope MD [address] [facility] 275 [place], [place] [address] Assigned Heart and Vascular Provider 11/16/22 Elmer Paul MD [address] [place] [address] Allergy & Immunology 02/17/23 Elmer Paul MD [address] [facility] [address] [address], [address] [place] [address] Assigned Allergy Provider 04/26/23 Batool Torres WIRE CHIEF 1655 [place] [address] Nurse Practitioner Pulmonary Disease 08/11/23 [place] [address] [place] [address] Nurse Practitioner Nurse Practitioner 10/29/23 Batool Torres NP 1655 [place] [address] Assigned Pulmonology Provider 12/25/23 documented as of this encounter
--- OUTSIDE RECORDS SUMMARY | 2023-12-29 23:16 | XMS_ITS | Encounter Summary ---
Author Name Unknown Organization [place] Address [address] [place] [address] Care Team Providers Care Spiral Tube Winder Helper Name Role Phone Carey Vuong MD Primary Care Provider [phone] Carey Vuong MD Unavailable +[phone] Mehreen Scott MD Unavailable [phone] Lavern Gonzalez MD Unavailable [phone] Terry Romano MD Unavailable Carey Vuong MD Unavailable +[phone] Lavern Gonzalez MD Unavailable +[phone] Prema Hitchcock PA-C Unavailable +[phone] Chidi Puckett MD Unabrendon lable Harriet Lindsay Unavailable Unavailable Aisha MurdockC Unavailable +[phone] Lavern Pope MD Unavailable +[phone] Lavern Pope MD Unavailable [phone] Elmer Paul MD Unavailable [phone] Elmer Paul MD Unavailable Batool Torres VAMP STITCHER Unavailable Marlene Benoit VAMP STITCHER Unavailable Batool Torres NP Unavailable [phone] Encounter Details Date Type Department Care Team (Late st Contact Info) Description 04/26/2020 MyC Medical Advice [facility] [address] [facility] [address] 4[address] [place] [address] Lavern Gonzalez MD [address] [facility] [address] [facility] [address] [place] [address] Possible urinary tract infection (Primary Dx) Social History Tobacco Use Types Packs/Day Years Used Date Smoking Tobacco: Former Cigarettes 0.5 10 Q uit: 08/01/2012 Smokeless Tobacco: Never Comments:smokes a single cig ar nightly Alcohol Use Standard Drinks/Week Comments Yes 5 (1 standard drink = 0.6 oz pur e alcohol) occ--2 per month Social Connection and Isolat ion Panel [NHANES] Answer Date Recorded Frequency of Communication w ith Friends and Family More than three times a week 12/12/2019 Frequency of Social Gatherin gs with Friends and Family Once a week 12/12/2019 Attends Amish Services More than 4 times per year 12/12/2019 Active Member of Clubs or Organizations Yes 12/12/2019 Attends Club or Organization Meetings 1 to 4 michaelle es per year 12/12/2019 Marital Status 12/12/2019 AUDIT-C Answer Date Recorded Frequency of Alcohol Consumption Monthly or less 12/12/2019 Average Number of Drinks 1 or 2 020 Frequency of Binge Drinking Never 12/01 Overall Financial Resource Strain (CARDIA) Answe r Date Recorded Difficulty of Paying Living Expenses Not hard at all 12/12/2019 PHQ-2 Answer Date Recorded PHQ-2 Score 0 12/12/2019 [facility] of Occupat ional Health - Occupational Stress Questionnaire Answer Date Recorded Feeling of Stress Only a little 12/12/2019 Exercise Vital Sign Answer Date Recorde d Days of Exercise per Week 5 days 2019 Minutes of Exercise per Session 50 min 12/12/2019 Hunger Vital Sign Answer Date Recorded Within [...] things needed for daily living? No 12/12/2019 Education Answer Date Recorded What is the highest level of school you have completed or the highest degree you have received? Some college, no degree 12/12/2019 Sex and Gender Information Value Date Recorded Sex Assigned at Female 12/12/2019 6:30 PM REGIONAL OPERATIONS MANAGER Gender Identity Female 12/12/2019 6:30 PM REGIONAL OPERATIONS MANAGER Sexual Orientation Straight 04/04/2021 12 :18 PM CDT Travel History Travel Start Travel End [place] 12/06/2023 12/12/2023 COVID-19 Exposure Response Date Recorded In the last month, have you been in contact with someone who was confirmed or suspected to have Coronavirus / COVID-19? No / Unsure 04/21/2020 1:17 PM CDT documented as of this encounter Plan of Treatment Upcoming Encounters Date Type Department Care Team (Late st Contact Info) Description 03/19/2024 3:30 PM CDT Office Visit [facility] Specialty [facility] [address] [facility] [address] [place] [phone] Elmer Paul MD [address] [place] [address] 04/16/2024 8:30 AM CDT Lab [facility] Heart [facility] [address] [facility] [address] [place] [phone] 04/20/2024 8:45 AM CDT Office Visit [facility] [address] [facility] [address] [place] [phone] Lavern Pope MD [address] [facility] 275 [place] [id number] documented as of this encounter Visit Diagnoses Diagnosis Possible urinary tract infection- Primary documented in this encounter Additional Health Concerns Infection Onset Date Last Indicated Resolved Time Rule Out COVID-19 01/11/2021 01/11/2021 01/11/2021 9:48 PM REGIONAL OPERATIONS MANAGER Assessment Noted Time PHQ-9 Depression Total Score: 2 12/16/19 7:02 AM REGIONAL OPERATIONS MANAGER documented as of this encounter Care Teams Spiral Tube Winder Helper Relationship Specialty Start Date End Date Carey Vuong MD [address] [place] [address] [place] [address] PCP - General 01/15/02 Carey Vuong MD [address] [place] [address] [place] [address] Assigned PCP 01/13/17 12/16/20 [place] [address] [place] [address] [place] [phone] mechanical sound technician 12/15/19 Lavern Gonzalez MD [address] [place] [address] 394 [place] [address] Assigned Surgical Provider 09/22/20 04/07/21 [place] [address] [place] [address] Assigned PCP 12/17/20 02/21/21 Carey Vuong MD [address] [place] [address] [place] [address] Assigned PCP 02/22/21 Lavern Gonzalez MD 420 [facility] 394 [place] [address] Assigned Surgical Provider 04/29/21 11/03/21 Prema Hitchcock PA-C [address] [place] [address] Assigned Surgical Provider 11/04/21 Chidi Puckett MD [address] [place] [address] Assigned Sleep Provider 02/17/22 10/31/23 Harriet Lindsay Personal Advocate & Liaison (PAL) 06/17/22 Aisha Murdock PA-C [facility] [address] [place] [address] Assigned Neuroscience Provider 06/08/22 11/28/23 Lavern Pope MD [address] [place] [address] Cardiovascular Disease 11/11/22 Lavern Pope MD [address] [facility] [address] [place] [address] Assigned Heart and Vascular Provider 11/16/22 Elmer Paul MD [address] [place] [address] Allergy & Immunology 02/17/23 Elmer Paul MD [address], [facility] 200 [place] [address] Assigned Allergy Provider 04/26/23 Batool Torres, VAMP STITCHER [address] [place] [address] Nurse Practitioner Pulmonary Disease 08/11/23 [place] [address] [place] [address] Nurse Practitioner Nurse Practitioner 10/29/23 Batool Torres, VAMP STITCHER [address] [place] [address] Assigned Pulmonology Provider 12/25/23 documented as of this encounter
--- OUTSIDE RECORDS SUMMARY | 2023-12-29 23:16 | XMS_ITS | Encounter Summary ---
Author Name Unknown Organization [place] Address [address] [place] [address] Care Team Providers Care Fur Examiner Name Role Phone Carey Vuong MD Primary Care Provider [phone] Mehreen Scott MD Unavailable [phone] Lavern Gonzalez MD Unavailable [phone] Carey Vuong MD Unavailable [phone] Lavern Gonzalez MD Unavailable [phone] Prema Hitchcock-C Unavailable +[phone] Chidi Puckett MD Unava lable Harriet Lindsay Unavailable Unavailable Aisha Murdock-C Unavailable +[phone] Lavern Pope MD Unavailable [phone] Lavern Pope MD Unavailable [phone] Elmer Paul MD Unavailable +[phone] Elmer Paul MD Unavailable [phone] Batool Torres NP Unavailable [phone] Marlene Benoit SEED CORE OPERATOR Unavailable [phone] DionBatool hastings SEED CORE OPERATOR Unavailable [phone] Encounter Details Date Type Department Care Team (Late st Contact Info) Description 02/22/2021 MyC Medical Advice [facility] Care Coordination [address] [place] [address] Faye Hearn, RN Social History Tobacco Use Types Packs/Day [...] and Family Once a week 12/12/2019 Attends Tenriism Services More than 4 times per year [...] Answer Date Recorded PHQ-2 Score 0 12/12/2019 [facility] of Occupat ional Health - [...] Sex Assigned at Female 12/12/2019 6:30 PM INFORMATION SYSTEMS SUPERVISOR Gender Identity Female 12/12/2019 6:30 PM INFORMATION SYSTEMS SUPERVISOR Sexual Orientation Straight 04/04/2021 12 :18 PM CDT Travel History Travel Start Travel End [place] 12/06/2023 12/12/2023 documented as of this encounter Plan of Treatment Upcoming Encounters Date Type Department Care Team (Late st Contact Info) Description 03/19/2024 3:30 PM CDT Office Visit [facility] Specialty [facility] [address] [facility] [address] [place] [phone] Elmer Paul MD [address] [facility] 200 [place] [address] 04/16/2024 8:30 AM CDT Lab [facility] Heart [facility] [address] [facility] [address] [place] [address] 04/20/2024 8:45 AM CDT Office Visit [facility] [address] [facility] [address] [place] [phone] Lavern Pope MD [address] [facility] [address] [place] [address] documented as of this encounter Visit Diagnoses Not on filedocumented in this encounter Additional Health Concerns Assessment Noted Time PHQ-9 Depression Total Score: 2 12/16/19 20 7:02 AM INFORMATION SYSTEMS SUPERVISOR documented as of this encounter Care Teams Fur Examiner Relationship Specialty Start Date End Date Carey Vuong MD [address] [place] [address] [place] [address] PCP - General 01/15/02 Mehreen Scott MD [address] [facility] 100 [place] [address] repair armature winder helper 12/15/19 Lavern Gonzalez MD [address] [address] Assigned Surgical Provider 09/22/20 04/07/21 Carey Vuong MD [address] [facility] [place] [address] Assigned PCP 02/22/21 Lavern Gonzalez MD [address] [place] [address] Assigned Surgical Provider 04/29/21 11/03/21 Prema Hitchcock PA-C [address] [place] [address] Assigned Surgical Provider 11/04/21 Chidi Puckett MD [address] [place] [address] Assigned Sleep Provider 02/17/22 10/31/23 Harriet Lindsay Personal Advocate & Liaison (PAL) 06/17/22 Aisha Murdock PA-C [facility] [address] [place] [address] Assigned Neuroscience Provider 06/08/22 11/28/23 Lavern Pope MD [address] [place] [address] Cardiovascular Disease 11/11/22 Lavern Pope MD [address] [place] [address] Assigned Heart and Vascular Provider 11/16/22 Elmer Paul MD [address] [place] [address] Allergy & Immunology 02/17/23 Elmer Paul MD [address] [place] [address] Assigned Allergy Provider 04/26/23 Batool Torres NP [address] [facility] [place] [address] Nurse Practitioner Pulmonary Disease 08/11/23 [place] [address] [place] [address] Nurse Practitioner Nurse Practitioner 10/29/23 Batool Torres NP [address]55 [place] [address] Assigned Pulmonology Provider 12/25/23 documented as of this encounter
--- OUTSIDE RECORDS SUMMARY | 2023-12-29 23:16 | XMS_ITS | Encounter Summary ---
Author Name Unknown Organization [facility] Address [address] [place] [address] Care Team Providers Care Isobutylene Operator Chief Name Role Phone Carey Vuong MD Primary Care Provider [phone] Mehreen Scott MD Unavailable [phone] Lavern Gonzalez MD Unavailable +[phone] Carey Vuong MD Unavailable +[phone] Lavern Gonzalez MD Unavailable [phone] Prema Hitchcock-C Unavailable +[phone] Chidi Puckett MD Unava lable Harriet Lindsay Unavailable Unavailable Aisha Murdock-C Unavailable +[phone] Lavern Pope MD Unavailable +[phone] Lavern Pope MD Unavailable [phone] Elmer Paul MD Unavailable +[phone] Elmer Paul MD Unavailable [phone] Batool Torres NP Unavailable [phone] Marlene Benoit AUTOMOBILE UPHOLSTERER Unavailable Batool Torres AUTOMOBILE UPHOLSTERER Unavailable [phone] Encounter Details Date Type Department Care Team (Late st Contact Info) Description 03/20/2021 Documentation Only INTERFACED REPORT Unknown, Provider Social History Tobacco Use Types Packs/Day Years [...] and Family Once a week 12/12/2019 Attends Congregational Services More than 4 times per year [...] Answer Date Recorded PHQ-2 Score 0 12/12/2019 [facility] of Occupat ional Health - Occupational [...] Sex Assigned at Female 12/12/2019 6:30 PM DRAY DRIVER Gender Identity Female 12/12/2019 6:30 PM DRAY DRIVER Sexual Orientation Straight 04/04/2021 12 :18 PM CDT Travel History Travel Start Travel End [place] 12/06/2023 12/12/2023 documented as of this encounter Plan of Treatment Upcoming Encounters Date Type Department Care Team (Late st Contact Info) Description 03/19/2024 3:30 PM CDT Office Visit [facility] [place] [address] [facility] [address] [place] [address] Elmer Paul MD [address] [facility] [address] [place] [address] 04/16/2024 8:30 AM CDT Lab [facility] Heart [facility] [address] [facility] [address] [place] [phone] 04/20/2024 8:45 AM CDT Office Visit [facility] [address] [facility] [address] [place] [phone] Lavern Pope MD [address] [facility] [address] [place] [address] documented as of this encounter Visit Diagnoses Not on filedocumented in this encounter Additional Health Concerns Assessment Noted Time PHQ-9 Depression Total Score: 2 12/16/19 20 7:02 AM DRAY DRIVER documented as of this encounter Care Teams Isobutylene Operator Chief Relationship Specialty Start Date End Date Carey Vuong MD [address] [place] [address] [place] [address] PCP - General 01/15/02 Mehreen Scott MD [address] [facility] 100 [place] [phone] coding analyst 12/15/19 Lavern Gonzalez MD 420 [facility] 394 [place], [place] [address] Assigned Surgical Provider 09/22/20 04/07/21 Carey Vuong MD [address] [facility] [place] [address] Assigned PCP 02/22/21 Lavern Gonzalez MD 420 [facility] 394 [place], [place] [address] Assigned Surgical Provider 04/29/21 11/03/21 Prema Hitchcock PA-C [address] [facility] [place] [address] Assigned Surgical Provider 11/04/21 Chidi Puckett MD [address] [facility] 106 [place] [address] Assigned Sleep Provider 02/17/22 10/31/23 Harriet Lindsay Personal Advocate & Liaison (PAL) 06/17/22 Aisha Murdock PA-C [facility] [address] [place] [address] Assigned Neuroscience Provider 06/08/22 11/28/23 Lavern Pope MD [address] [place] [address] Cardiovascular Disease 11/11/22 Lavern Pope MD [address] [place] [address] Assigned Heart and Vascular Provider 11/16/22 Elmer Paul MD [address] [place], [place] [address] Allergy & Immunology 02/17/23 Elmer Paul MD [address] [place], [place] [address] Assigned Allergy Provider 04/26/23 Batool Torres NP [address] [place] [address] Nurse Practitioner Pulmonary Disease 08/11/23 [place] [address] [place] [address] Nurse Practitioner Nurse Practitioner 10/29/23 Batool Torres NP [address] [place] [address] Assigned Pulmonology Provider 12/25/23 documented as of this encounter
--- OUTSIDE RECORDS SUMMARY | 2023-12-29 23:16 | XMS_ITS | Encounter Summary ---
Author Name Unknown Organization [facility] Address [address] [place] [address] Care Team Providers Care Security Program Manager Name Role Phone Carey Vuong MD Primary Care Provider [phone] Mehreen Scott MD Unavailable [phone] Lavern Gonzalez MD Unavailable +[phone] Carey Vuong MD Unavailable +[phone] Lavern Gonzalez MD Unavailable [phone] Prema Hitchcock-C Unavailable +[phone] Chidi Puckett MD Unava lable Harriet Lindsay Unavailable Unavailable Aisha Murdock-C Unavailable +[phone] Lavern Pope MD Unavailable +[phone] Lavern Pope MD Unavailable +[phone] Elmer Paul MD Unavailable +[phone] Elmer Paul MD Unavailable +[phone] Batool Torres NP Unavailable [phone] Marlene Benoit WORKING SECOND HAND Unavailable MelissaBatool WORKING SECOND HAND Unavailable [phone] Reason for Visit * Reason Comments Medication Refill Encounter Details Date Type Department Care Team (Late st Contact Info) Description 02/23/2021 Refill [facility] [address] [place] [address] Carey Vuong MD [address] [facility] [place] [address] Medication Refill Social History Tobacco Use Types [...] and Family Once a week 12/12/2019 Attends Zoroastrian Services More than 4 times per year [...] Answer Date Recorded PHQ-2 Score 0 12/12/2019 [place] of Occupat ional Health - Occupational Stress [...] Sex Assigned at Female 12/12/2019 6:30 PM SPECIAL EVENTS DRIVER Gender Identity Female 12/12/2019 6:30 PM SPECIAL EVENTS DRIVER Sexual Orientation Straight 04/04/2021 12 :18 PM CDT Travel History Travel Start Travel End [place] 12/06/2023 12/12/2023 documented as of this encounter Miscellaneous Notes * Telephone Encounter - Jackie Bates RN - 02/26/2021 9:29 AM CDT Routing refill request to provider for review/approval because: PHQ-9 out of [facility] protocol range for RN to refill documented in this encounter Plan of Treatment Upcoming Encounters Date Type Department Care Team (Late st Contact Info) Description 03/19/2024 3:30 PM CDT Office Visit [facility] Specialty [facility] [address] [facility] [address] [place] [phone] Elmer Paul MD [address] , [address] [place], [place] [address] 04/16/2024 8:[address] [facility] Heart [facility] [address] [facility] [address] [place] [phone] 04/20/2024 8:45 AM CDT Office Visit [facility] [address] [facility] [address] [place] [address] Lavern Pope MD [address] [facility] [address] [place] [id number] documented as of this encounter Visit Diagnoses Diagnosis Major depressive disorder, recurrent episode, moderate (H) Major depressive disorder, recurrent episode, moderate documented in this encounter Additional Health Concerns Assessment Noted Time PHQ-9 Depression Total Score: 2 12/16/19 20 7:02 AM SPECIAL EVENTS DRIVER documented as of this encounter Care Teams Security Program Manager Relationship Specialty [place] [address] [place] [address] [place] [address] PCP - General 01/15/02 Mehreen Scott MD [address] [facility] [address] [place] [phone] acid tester 12/15/19 Lavern Gonzalez MD [address] [place] [address]485 Assigned Surgical Provider 09/22/20 04/07/21 [place] [address] [place] [address] [place] [address] Assigned PCP 02/22/21 Lavern Gonzalez MD [address] [place] [address] Assigned Surgical Provider 04/29/21 11/03/21 Prema Hitchcock PA-C [address] [facility] [place] [address] Assigned Surgical Provider 11/04/21 Chidi Puckett MD [address] [place], [place] [address] Assigned Sleep Provider 02/17/22 10/31/23 Harriet Lindsay Personal Advocate & Liaison (PAL) 06/17/22 Aisha Murdock PA-C [facility] [address] [place] [address] Assigned Neuroscience Provider 06/08/22 11/28/23 Lavern Pope MD [address] [facility] [address] [place], [place] [address] Cardiovascular Disease 11/11/22 Lavern Pope MD [address] [facility] [address] [facility] [address] [place], [place] [address] Assigned Heart and Vascular Provider 11/16/22 Elmer Paul MD [address] [place] [address] Allergy & Immunology 02/17/23 Elmer Paul MD [address] [place], [place] [address] Assigned Allergy Provider 04/26/23 Batool Torres WORKING SECOND HAND [address] [facility] [place] [address] Nurse Practitioner Pulmonary Disease 08/11/23 Marlene Benoit, ZENOBIA [address] [place] [address] Nurse Practitioner Nurse Practitioner 10/29/23 Batool Torres NP [address] [facility] [place] [address] Assigned Pulmonology Provider 12/25/23 documented as of this encounter
--- OUTSIDE RECORDS SUMMARY | 2023-12-29 23:16 | XMS_ITS | Encounter Summary ---
Author Name Unknown Organization [facility] Address [address] [place] [address] Care Team Providers Care Cloth Carrier Name Role Phone Carey Vuong MD Primary Care Provider [phone] Carey Vuong MD Unavailable [phone] Mehreen Scott MD Unavailable [phone] Lavern Gonzalez MD Unavailable [phone] Terry Romano MD Unavailable Carey Vuong MD Unavailable +[phone] Lavern Gonzalez MD Unavailable [phone] Prema Hitchcock PA-C Unavailable [phone] Chidi Puckett MD Unabrendon lable Harriet Lindsay Unavailable Unavailable Aisha MurdockC Unavailable +[phone] Lavern Pope MD Unavailable [phone] Lavern Pope MD Unavailable [phone] Elmer Paul MD Unavailable [phone] Elmer Paul MD Unavailable Batool Torres BARN AND PROPERTY MANAGER Unavailable [phone] Marlene Benoit BARN AND PROPERTY MANAGER Unavailable Batool Torres NP Unavailable Encounter Details Date Type Department Care Team (Late st Contact Info) Description 04/21/2020 MyC Medical Advice [facility] [address] [facility] [address] 4th [place] [address] Lavern Gonzalez MD [address] [facility] [address] [facility] [address] [place] [address] Possible urinary tract infection (Primary [...] and Family Once a week 12/12/2019 Attends Quaker Services More than 4 times per year [...] Answer Date Recorded PHQ-2 Score 0 12/12/2019 [facility] [place] of Occupat ional Health - Occupational [...] Sex Assigned at Female 12/12/2019 6:30 PM CONSTRUCTION SPECIALIST Gender Identity Female 12/12/2019 6:30 PM CONSTRUCTION SPECIALIST Sexual Orientation Straight 04/04/2021 12 :18 PM CDT Travel History Travel Start Travel End [place] 12/06/2023 12/12/2023 COVID-19 Exposure Response Date Recorded [...] CDT Office Visit [facility] Specialty [facility] [address] [facility] [address] [place] [phone] Elmer Paul MD [address], [address] [place] [address] 04/16/2024 8:30 AM CDT Lab [facility] Heart [facility] [address] [facility] [address] [place] [phone] 04/20/2024 8:45 AM CDT Office Visit [facility] [address] [facility] [address] [place] [phone] Lavern Pope MD [address] [facility] [address] [place] [address] documented as of this encounter Results * (ABNORMAL) Urine Culture Aerobic Bacterial (04/21/2020 1:29 PM CDT) Specimen Description Midstream Urine [facility] Culture Micro 50,000 to 100,000 colonies/mL Escherichia coli (A) 04/23/2020 12:10 PM CDT [facility] Examination of midstream urine specimen (procedure) 04/21/2020 1:29 PM CDT 04/21/2020 1:30 PM CDT Narrative Organism Antibiotic Method Susceptibility Escherichia coli Ampicillin BALJINDER >=32 ug/mL: Resistant Escherichia coli Cefazolin BALJINDER <=4 ug/mL: Susceptible Comment: Cefazolin BALJINDER breakpoints are for the treatment of uncomplicated urinary tract infections. ??For the treatment of systemic infections, please contact the laboratory for additional testing. Escherichia coli Cefoxitin BALJINDER <=4 ug/mL: Susceptible Escherichia coli Ceftazidime BALJINDER <=1 ug/mL: Susceptible Escherichia coli Ceftriaxone BALJINDER <=1 ug/mL: Susceptible Escherichia coli Ciprofloxacin BALJINDER <=0.25 ug/mL: Susceptible Escherichia coli Gentamicin BALJINDER <=1 ug/mL: Susceptible Escherichia coli Levofloxacin BALJINDER <=0.12 ug/mL: Susceptible Escherichia coli Nitrofurantoin BALJINDER <=16 ug/mL: Susceptible Escherichia coli Tobramycin BALJINDER <=1 ug/mL: Susceptible Escherichia coli Trimethoprim/Sulfamethoxazole BALJINDER <=1/19 ug/mL: Susceptible Escherichia coli Ampicillin/Sulbactam BALJINDER >=32 ug/mL: Resistant Escherichia coli Piperacillin/Tazo BALJINDER <=4 ug/mL: Susceptible Escherichia coli Cefepime BALJINDER <=1 ug/mL: Susceptible Lavern Gonzalez MD LAB - MICRO GENE RAL ORDERABLES [facility] [address] [place] [address], [facility] documented in this encounter Visit Diagnoses Diagnosis Possible urinary tract infection- Primary documented in this encounter Additional Health Concerns Infection Onset Date Last Indicated Resolved Time Rule Out COVID-19 01/11/2021 01/11/2021 01/11/2021 9:48 PM CONSTRUCTION SPECIALIST Assessment Noted Time PHQ-9 Depression Total Score: 2 12/16/19 20 7:02 AM CONSTRUCTION SPECIALIST documented as of this encounter Care Teams Cloth Carrier Relationship Specialty Start Date End Date Carey Vuong MD [address] [place] [address] [place] [address] PCP - General 01/15/02 Carey Vuong MD [address] [place] [address] [place] [address] Assigned PCP 01/13/17 12/16/20 Mehreen Scott MD [address] [place] [phone] systems administrator 12/15/19 Lavern Gonzalez MD [address] [place] [address] 532415 Assigned Surgical Provider 09/22/20 04/07/21 [place] [address] [place] [address] Assigned PCP 12/17/20 02/21/21 Carey Vuong MD [address] [place] [address] [place] [address] Assigned PCP 02/22/21 Lavern Gonzalez MD [address] [place] [address] Assigned Surgical Provider 04/29/21 11/03/21 Prema Hitchcock PA-C [address] [place] [address] Assigned Surgical Provider 11/04/21 Chidi Puckett MD [address] [place], [place] [address] Assigned Sleep Provider 02/17/22 10/31/23 Harriet Lindsay Personal Advocate & Liaison (PAL) 06/17/22 Aisha Murdock PA-C [facility] [address] [place] [address] Assigned Neuroscience Provider 06/08/22 11/28/23 Lavern Pope MD [address] [place], [place] [address] Cardiovascular Disease 11/11/22 Lavern Pope MD [address] [facility] [address] [place], [place] [address] Assigned Heart and Vascular Provider 11/16/22 Elmer Paul MD [address] [place], [place] [address] Allergy & Immunology 02/17/23 Elmer Paul MD [address] [place] [address] Assigned Allergy Provider 04/26/23 Batool Torres, BARN AND PROPERTY MANAGER [address]55 [place] [address] Nurse Practitioner Pulmonary Disease 08/11/23 [place] [address] [place] [address] Nurse Practitioner Nurse Practitioner 10/29/23 Batool Torres, ZENOBIA [address] [place] [address] Assigned Pulmonology Provider 12/25/23 documented as of this encounter
--- OUTSIDE RECORDS SUMMARY | 2023-12-29 23:16 | XMS_ITS | Encounter Summary ---
Author Name Unknown Organization [facility] Address [address] [place] [address] Care Team Providers Care Building And Construction Manager Name Role Phone Carey Vuong MD Primary Care Provider [phone] Mehreen Scott MD Unavailable [phone] Lavern Gonzalez MD Unavailable [phone] Carey Vuong MD Unavailable [phone] Lavern Gonzalez MD Unavailable [phone] Prema Hitchcock-C Unavailable +[phone] Chidi Puckett MD Unava lable Harriet Lindsay Unavailable Unavailable Aisha Murdock-C Unavailable +[phone] Lavern Pope MD Unavailable [phone] Lavern Pope MD Unavailable [phone] Elmer Paul MD Unavailable [phone] Elmer Paul MD Unavailable [phone] Batool Torres NP Unavailable [phone] Marlene Benoit CLOTH FINISHING RANGE OPERATOR Unavailable [phone] Batool Torres CLOTH FINISHING RANGE OPERATOR Unavailable [phone] Encounter Details Date Type Department Care Team (Late st Contact Info) Description 02/27/2021 Documentation Only INTERFACED REPORT Unknown, Provider Social [...] and Family Once a week 12/12/2019 Attends Anglican Services More than 4 times per year [...] Answer Date Recorded PHQ-2 Score 0 12/12/2019 [facility] of Occupat ional Health - Occupational Stress [...] Sex Assigned at Female 12/12/2019 6:30 PM CRANIOLOGIST Gender Identity Female 12/12/2019 6:30 PM CRANIOLOGIST Sexual Orientation Straight 04/04/2021 12 :18 PM CDT Travel History Travel Start Travel End [place] 12/06/2023 12/12/2023 documented as of this encounter Plan of Treatment Upcoming Encounters Date Type Department Care Team (Late st Contact Info) Description 03/19/2024 3:30 PM CDT Office Visit [facility] [place] [address] [facility] [address] [place] [address] Elmer Paul MD [address] [facility] [address] [place] [address] 04/16/2024 8:30 AM CDT Lab [facility] Heart [facility] [address] [facility] [address] [place] [phone] 04/20/2024 8:45 AM CDT Office Visit [facility] [address] [facility] [address] [place] [phone] Lavern Pope MD [address] [facility] [address] [place] [address] documented as of this encounter Visit Diagnoses Not on filedocumented in this encounter Additional Health Concerns Assessment Noted Time PHQ-9 Depression Total Score: 2 12/16/19 20 7:02 AM CRANIOLOGIST documented as of this encounter Care Teams Building And Construction Manager Relationship Specialty Start Date End Date Carey Vuong MD [address] [place] [address] [place] [address] PCP - General 01/15/02 Mehreen Scott MD [address] [facility] 100 [place] [phone] command post superintendent 12/15/19 Lavern Gonzalez MD [address] [facility] 394 [place], [place] [address] Assigned Surgical Provider 09/22/20 04/07/21 Carey Vuong MD [address] [facility] [place] [address] Assigned PCP 02/22/21 Lavern Gonzalez MD [address] [facility] 394 [place], [place] [address] Assigned Surgical Provider 04/29/21 11/03/21 Prema Hitchcock PA-C [address] [facility] [place] [address] Assigned Surgical Provider 11/04/21 Chidi Puckett MD [address] [facility] 106 [place] [address] Assigned Sleep Provider 02/17/22 10/31/23 Harriet Lindsay Personal Advocate & Liaison (PAL) 06/17/22 Aisha Murodck PA-C [facility] [address] [place] [address] Assigned Neuroscience Provider 06/08/22 11/28/23 Lavern Pope MD [address] [place] [address] Cardiovascular Disease 11/11/22 Lavern Pope MD [address] [place] [address] Assigned Heart and Vascular Provider 11/16/22 Elmer Paul MD [address] [place], [place] [address] Allergy & Immunology 02/17/23 Elmer Paul MD [address] [place], [place] [address] Assigned Allergy Provider 04/26/23 Batool Torres NP [address] [place] [address] Nurse Practitioner Pulmonary Disease 08/11/23 [place] [address] [place] [address] Nurse Practitioner Nurse Practitioner 10/29/23 Batool Torres NP [address] [place] [address] Assigned Pulmonology Provider 12/25/23 documented as of this encounter
--- OUTSIDE RECORDS SUMMARY | 2023-12-29 23:16 | XMS_ITS | Encounter Summary ---
Author Name Unknown Organization [facility] Address [address] [place] [address] Care Team Providers Care Paving Machine Operator Name Role Phone Carey Vuong MD Primary Care Provider [phone] Mehreen Scott MD Unavailable [phone] Carey Vuong MD Unavailable [phone] Lavern Gonzalez MD Unavailable +[phone] Prema Hitchcock PA-C Unavailable +[phone] Chidi Puckett MD Unavai lable Harriet Lindsay Unavailable Unavailable Aisha MurdockC Unavailable +[phone] Lavern Pope MD Unavailable [phone] Lavern Pope MD Unavailable [phone] Elmer Paul MD Unavailable [phone] Elmer Paul MD Unavailable [phone] Batool Torres NP Unavailable Marlene Benoit NP Unavailable [phone] Batool Torres ENVIRONMENTAL SERVICES LEAD Unavailable Encounter Details Date Type Department Care Team (Late st Contact Info) Description 07/30/2021 MyC Medical Advice [facility] [address] [facility] [address] [place] [address] Carey Vuong MD [address] [facility] [place] [address] Social History Tobacco [...] and Family Not on file 04/24/2021 Attends Sabianist Services Not on file 04/24 Active Member [...] more points; Administer PHQ-9 if positive 0 06/19/2021 [facility] [place] of Occupat ional Health - Occupational Stress [...] slept in a snf (including now)? No 04/24/2021 Education Answer Date Recorded What is the highest level of school you have completed or the highest degree you have received? Some college, no degree 12/12/2019 Sex and Gender Information Value Date Recorded Sex Assigned at Female 12/12/2019 6:30 PM PIECE MEAT TRIMMER Gender Identity Female 12/12/2019 6:30 PM PIECE MEAT TRIMMER Sexual Orientation Straight 04/04/2021 12 :18 PM CDT Travel History Travel Start Travel End [place] 12/06/2023 12/12/2023 COVID-19 Exposure Response Date Recorded In the last month, have you been in contact with someone who was confirmed or suspected to have Coronavirus / COVID-19? No / Unsure 07/20/2021 8:58 AM CDT documented as of this encounter Miscellaneous Notes * Telephone Encounter - Carey Vuong MD - 08/03/2021 11:54 AM CDT Please call her to see how she is doing. I recommend she follow up with gastro, but if can't get inor if constipation is returning, she should come in to see us in clinic. Carey Vuong M.D. * Telephone Encounter - Liza Gordon LPN - 07/30/2021 4:01 PM CDT Saw ED report and they thought likely viral GI issues. Does she need to be seen or GI follow up? Liza Gordon LPN documented in this encounter Plan of Treatment Upcoming Encounters Date Type Department Care Team (Late st Contact Info) Description 03/19/2024 3:30 PM CDT Office Visit [facility] [address] [facility] 200 [place] [address] Elmer Paul MD [address] [facility] 200 [place] [address] 04/16/2024 8:30 AM CDT Lab [facility] [address] [facility] [address] [place] [phone] 04/20/2024 8:45 AM CDT Office Visit [facility] [address] [facility] [address] [place] [phone] Lavern Pope MD [address] [facility] [address] [place] [address] documented as of this encounter Visit Diagnoses Not on filedocumented in this encounter Additional Health Concerns Assessment Noted Time PHQ-9 Depression Total Score: 5 06/20/20 21 7:03 AM CDT documented as of this encounter Care Teams Paving Machine Operator Relationship Specialty Start Date End Date Carey Vuong MD [address] [facility] [place] [address] PCP - General 01/15/02 Mehreen Scott MD [address] 100 [place] [phone] diesel powerplant mechanic helper 12/15/19 Carey Vuong MD [address] [facility] [place] [id number] Assigned PCP 02/22/21 Lavern Gonzalez MD [address] [facility] 394 [place], [place] [address] Assigned Surgical Provider 04/29/21 11/03/21 Prema Hitchcock PA-C [address] [facility] [place] [address] Assigned Surgical Provider 11/04/21 Chidi Puckett MD [address] [facility] 106 [place] [address] Assigned Sleep Provider 02/17/22 10/31/23 Harriet Lindsay Personal Advocate & Liaison (PAL) 06/17/22 Aisha Murdock PA-C [facility] [address] [facility] [place] [address] Assigned Neuroscience Provider 06/08/22 11/28/23 Lavern Pope MD [address] [place] [address] Cardiovascular Disease 11/11/22 Lavern Pope MD [address] [place] [address] Assigned Heart and Vascular Provider 11/16/22 Elmer Paul MD [address] [place], [place] [address] Allergy & Immunology 02/17/23 Elmer Paul MD [address] [place], [place] [address] Assigned Allergy Provider 04/26/23 Batool Torres NP [address] [place] [address] Nurse Practitioner Pulmonary Disease 08/11/23 [place] [address] [place] [address] Nurse Practitioner Nurse Practitioner 10/29/23 Batool Torres NP [address] [place] [address] Assigned Pulmonology Provider 12/25/23 documented as of this encounter
--- OUTSIDE RECORDS SUMMARY | 2023-12-29 23:16 | XMS_ITS | Encounter Summary ---
Author Name Unknown Organization [facility] Address [address] [place] [address] Care Team Providers Care Senior Online Marketing Manager Name Role Phone Carey Vuong MD Primary Care Provider [phone] Mehreen Scott MD Unavailable [phone] Carey Vuong MD Unavailable [phone] Lavern Gonzalez MD Unavailable +[phone] Prema Hitchcock PA-C Unavailable +[phone] Chidi Puckett MD Unavai lable Harriet Lindsay Unavailable Unavailable Aisha MurdockC Unavailable +[phone] Lavern Pope MD Unavailable +[phone] Lavern Pope MD Unavailable +[phone] Elmer Paul MD Unavailable +[phone] Elmer Paul MD Unavailable [phone] Batool Torres NP Unavailable Marlene Benoit NP Unavailable [phone] Batool Torres CORRECTIONS SPECIALIST Unavailable Encounter Details Date Type Department Care Team (Late st Contact Info) Description 08/27/2021 Nicole Medical Advice M [facility] Dax [address] [facility] [address] [place] [address] Clare Chu Social History Tobacco Use [...] and Family Not on file 04/24/2021 Attends [employer] Services Not on file 04/24 Active Member [...] points; Administer PHQ-9 if positive 0 08/28/2021 [facility] [place] of Occupat ional Health - Occupational Stress [...] Sex Assigned at Female 12/12/2019 6:30 PM MARKETING PROJECT LEAD Gender Identity Female 12/12/2019 6:30 PM MARKETING PROJECT LEAD Sexual Orientation Straight 04/04/2021 12 :18 [...] Description 03/19/2024 3:30 PM CDT Office Visit [facility] [address] [place] [address] Elmer Paul MD [address] [facility] [address] [place] [address] 04/16/2024 8:30 AM CDT Lab [facility] [address] [facility] [address] [place] [phone] 04/20/2024 8:45 AM CDT Office Visit [facility] [address] [facility] [address] [place] [phone] Lavern Pope MD 6511 [facility] [address] [place] [address] documented as of this encounter Visit Diagnoses Not on filedocumented in this encounter Additional Health Concerns Assessment Noted Time PHQ-9 Depression Total Score: 5 06/20/20 21 7:03 AM CDT documented as of this encounter Care Teams Senior Online Marketing Manager Relationship Specialty Start Date End Date Carey Vuong MD [address] [place] [address] [place] [address] PCP - General 01/15/02 Mehreen Scott MD [address] [facility] [address] [place] [phone] assembler production line 12/15/19 Carey Vuong MD [address] [place] [address] [place] [address] Assigned PCP 02/22/21 Lavern Gonzalez MD [address] [place] [address] [address] [place] [address] Assigned Surgical Provider 04/29/21 11/03/21 Prema Hitchcock PA-C [address] [place] [address] Assigned Surgical Provider 11/04/21 Chidi Puckett MD [address] [place], [place] [address] Assigned Sleep Provider 02/17/22 10/31/23 Harriet Lindsay Personal Advocate & Liaison (PAL) 06/17/22 Aisha Murdock PA-C [facility] [address] [place] [address] Assigned Neuroscience Provider 06/08/22 11/28/23 Lavern Pope MD [address] [place], [place] [address] Cardiovascular Disease 11/11/22 Lavern Pope MD [address] [facility] [address] [place], [place] [address] Assigned Heart and Vascular Provider 11/16/22 Elmer Paul MD [address] [place], [place] [address] Allergy & Immunology 02/17/23 Elmer Paul MD [address] [place] [address] Assigned Allergy Provider 04/26/23 Batool Torres, CORRECTIONS SPECIALIST [address] [place] [address] Nurse Practitioner Pulmonary Disease 08/11/23 [place] [address] [place] [address] Nurse Practitioner Nurse Practitioner 10/29/23 Batool Torres, ZENOBIA [address] [place] [address] Assigned Pulmonology Provider 12/25/23 documented as of this encounter
--- OUTSIDE RECORDS SUMMARY | 2023-12-29 23:16 | XMS_ITS | Encounter Summary ---
Author Name Unknown Organization [facility] Address [address] [place] [address] Care Team Providers Care Technician Support Association Name Role Phone Carey Vuong MD Primary Care Provider [phone] Mehreen Scott MD Unavailable [phone] Carey Vuong MD Unavailable [phone] Lavern Gonzalez MD Unavailable +[phone] Prema Hitchcock PA-C Unavailable +[phone] Chidi Puckett MD Unavai lable Harriet Lindsay Unavailable Unavailable Aisha MurdockC Unavailable +[phone] Lavern Pope MD Unavailable [phone] Lavern Pope MD Unavailable [phone] Elmer Paul MD Unavailable [phone] Elmer Paul MD Unavailable [phone] Batool Torres NP Unavailable [phone] Marlene Benoit NP Unavailable [phone] Batool Torres OPERATIONS SUPPORT COORDINATOR Unavailable Encounter Details Date Type Department Care Team (Late st Contact Info) Description 05/24/2021 [facility] Dax [address] [facility] [address] [place] [address] Clare Chu Social History Tobacco Use Types Packs/Day Years Used Date Smoking Tobacco: Never Assessed Cigarettes 0.5 10 Smokeless Tobacco: Never Comments:smokes a single cig [...] and Family Not on file 04/24/2021 Attends [employer] Not on file 04/24 Active Member [...] hard 04/24/2021 PHQ-2 Answer Date Recorded PHQ-2 Score 0 05/01/2021 [facility] [place] of Occupat ional Health - Occupational Stress [...] slept in a retirement (including now)? No 04/24/2021 Education Answer Date Recorded What is the highest level of school you have completed or the highest degree you have received? Some college, no degree 12/12/2019 Sex and Gender Information Value Date Recorded Sex Assigned at Female 12/12/2019 6:30 PM MUSIC LIBRARY ASSISTANT Gender Identity Female 12/12/2019 6:30 PM MUSIC LIBRARY ASSISTANT Sexual Orientation Straight 04/04/2021 12 :18 PM CDT Travel History Travel Start Travel End [place] 12/06/2023 12/12/2023 COVID-19 Exposure Response Date Recorded In the last month, have you been in contact with someone who was confirmed or suspected to have Coronavirus / COVID-19? No / Unsure 05/01/2021 3:48 PM CDT documented as of this encounter Plan of Treatment Upcoming Encounters Date Type Department Care Team (Late st Contact Info) Description 03/19/2024 3:30 PM CDT Office Visit [place] [address] [place] [address] Elmer Paul MD 6599 [facility] [address] [place] [address] 04/16/2024 8:30 AM CDT Lab [facility] [address] [facility] [address] [place] [phone] 04/20/2024 8:45 AM CDT Office Visit [facility] 6[address] [facility] [address] [place] [phone] Lavern Pope MD 6542 [facility] [address] [place] [address] documented as of this encounter Visit Diagnoses Not on filedocumented in this encounter Additional Health Concerns Assessment Noted Time PHQ-9 Depression Total Score: 4 05/02/20 21 7:03 AM CDT documented as of this encounter Care Teams Technician Support Association Relationship Specialty Start Date End Date Carey Vuong MD [address] [place] [address] [place] [address] PCP - General 01/15/02 Mehreen Scott MD [address] [facility] 100 [place] [address] manager business development hospice 12/15/19 Carey Vuong MD [address] [place] [address] [place] [address] Assigned PCP 02/22/21 Lavern Gonzalez MD [address] [place] [address] [address] [place] [address] Assigned Surgical Provider 04/29/21 11/03/21 Prema Hitchcock PA-C [address]405 [place] [address] Assigned Surgical Provider 11/04/21 Chidi Puckett MD [address] [facility] [address] [place], [place] [address] Assigned Sleep Provider 02/17/22 10/31/23 Harriet Lindsay Personal Advocate & Liaison (PAL) 06/17/22 Aisha Murdock PA-C [facility] 6545 [place] [address] Assigned Neuroscience Provider 06/08/22 11/28/23 Lavern Pope MD 6525 [facility] [address] [place], [place] [address] Cardiovascular Disease 11/11/22 Lavern Pope MD 6525 [facility] 275 [place], [place] [address] Assigned Heart and Vascular Provider 11/16/22 Elmer Paul MD [address] [facility], [address] [place], [place] [address] Allergy & Immunology 02/17/23 Elmer Paul MD [address] [facility], [address] [place], [place] [address] Assigned Allergy Provider 04/26/23 Batool Torres, OPERATIONS SUPPORT COORDINATOR 1655 [place] [address] Nurse Practitioner Pulmonary Disease 08/11/23 [place] [address] [place] [address] Nurse Practitioner Nurse Practitioner 10/29/23 Batool Torres NP 1650 [place] [address] Assigned Pulmonology Provider 12/25/23 documented as of this encounter
--- OUTSIDE RECORDS SUMMARY | 2023-12-29 23:16 | XMS_ITS | Encounter Summary ---
Author Name Unknown Organization [facility] Address [address] [place] [address] Care Team Providers Care Vascular Surgery Physician Name Role Phone Carey Vuong MD Primary Care Provider [phone] Mehreen Scott MD Unavailable [phone] Carey Vuong MD Unavailable [phone] Lavern Gonzalez MD Unavailable [phone] Prema Hitchcock PA-C Unavailable [phone] Chidi Puckett MD Unavai lable Harriet Lindsay Unavailable Unavailable Aisha MurdockC Unavailable +[phone] Lavern Pope MD Unavailable [phone] Lavern Pope MD Unavailable [phone] Elmer Paul MD Unavailable [phone] Elmer Paul MD Unavailable [phone] Batool Torres NP Unavailable Marlene Benoit NP Unavailable [phone] Batool Torres SITE AUDITOR Unavailable Reason for Visit * Reason Comments Medication Refill Encounter Details Date Type Department Care Team (Late st Contact Info) Description 08/25/2021 Refill [facility] Dax [address] [facility] [address] [place] [address] Carey Vuong MD [address] [facility] [place] [address] Medication Refill Social History Tobacco Use Types [...] and Family Not on file 04/24/2021 Attends [employer] Services Not on file 04/24 Active Member [...] points; Administer PHQ-9 if positive 0 08/28/2021 [facility] [place] of Occupat ional Health - Occupational Stress [...] place to sleep or slept in a half-way (including now)? No 04/24/2021 Education Answer Date Recorded What is the highest level of school you have completed or the highest degree you have received? Some college, no degree 12/12/2019 Sex and Gender Information Value Date Recorded Sex Assigned at Female 12/12/2019 6:30 PM INTERNATIONAL SALES REPRESENTATIVE Gender Identity Female 12/12/2019 6:30 PM INTERNATIONAL SALES REPRESENTATIVE Sexual Orientation Straight 04/04/2021 12 :18 PM CDT Travel History Travel Start Travel End [place] 12/06/2023 12/12/2023 COVID-19 Exposure Response Date Recorded In the last month, have you been in contact with someone who was confirmed or suspected to have Coronavirus / COVID-19? No / Unsure 08/28/2021 10:15 AM CDT documented as of this encounter Miscellaneous Notes * Telephone Encounter - Clare Chu - 08/27/2021 2:20 PM CDT [facility] message sent to patient to schedule appt. * Telephone Encounter - Karen Valerio RN - 08/27/2021 12:22 PM CDT 3 month melody refanita approved. MA/TC: Please assist patient in scheduling office visit and completing PHQ9. Kraen Valerio RN on 08/27/2021 at 12:21 PM documented in this encounter Plan of Treatment Upcoming Encounters Date Type Department Care Team (Late st Contact Info) Description 03/19/2024 3:30 PM CDT Office Visit [facility] Specialty [facility] 6525 [facility] 200 [place] [address] Elmer Paul MD 6121 [facility] 200 [place] [address] 04/16/2024 8:30 AM CDT Lab [facility] [address] [facility] [address] [place] [address] 04/20/2024 8:45 AM CDT Office Visit [facility] 6[address] [facility] [address] [place] [address] Lavern Pope MD 5357 [facility] 275 [place], [place] [address] documented as of this encounter Visit Diagnoses Diagnosis Major depressive disorder, recurrent episode, moderate (H) Major depressive disorder, recurrent episode, moderate documented in this encounter Additional Health Concerns Assessment Noted Time PHQ-9 Depression Total Score: 5 06/20/20 21 7:03 AM CDT documented as of this encounter Care Teams Vascular Surgery Physician Relationship Specialty Start Date End Date Carey Vuong MD [address] [facility] [place] [address] PCP - General 01/15/02 Mehreen Scott MD [address] [place] [phone] serologist 12/15/19 Carey Vuong MD [address] [facility] [place] [address] Assigned PCP 02/22/21 Lavern Gonzalez MD [address] [facility] [address] [place], [place] [address] Assigned Surgical Provider 04/29/21 11/03/21 Prema Hitchcock PA-C [address] [place] [address] Assigned Surgical Provider 11/04/21 Chidi Puckett MD [address] [place], [place] [address] Assigned Sleep Provider 02/17/22 10/31/23 Harriet Lindsay Personal Advocate & Liaison (PAL) 06/17/22 Aisha Murdock PA-C [facility] [address] [place] [address] Assigned Neuroscience Provider 06/08/22 11/28/23 Lavern Pope MD [address] [place] [address] Cardiovascular Disease 11/11/22 Lavern Pope MD [address] [place] [address] Assigned Heart and Vascular Provider 11/16/22 Elmer Paul MD [address] [place], [place] [address] Allergy & Immunology 02/17/23 Elmer Paul MD [address] [place], [place] [address] Assigned Allergy Provider 04/26/23 Batool Torres NP [address] [place] [address] Nurse Practitioner Pulmonary Disease 08/11/23 [place] [address] [place] [address] Nurse Practitioner Nurse Practitioner 10/29/23 Batool Torres NP [address] [place] [address] Assigned Pulmonology Provider 12/25/23 documented as of this encounter
--- OUTSIDE RECORDS SUMMARY | 2023-12-29 23:16 | XMS_ITS | Encounter Summary ---
Author Name Unknown Organization [facility] Address [address] [place] [address] Care Team Providers Care Order Editor Name Role Phone Carey Vuong MD Primary Care Provider [phone] Mehreen Scott MD Unavailable [phone] Lavern Gonzalez MD Unavailable [phone] Carey Vuong MD Unavailable [phone] Lavern Gonzalez MD Unavailable +[phone] Prema Hitchcock-C Unavailable +[phone] Chidi Puckett MD Unava lable Harriet Lindsay Unavailable Unavailable Aisha Murdock-C Unavailable +[phone] Lavern Pope MD Unavailable +[phone] Lavern Pope MD Unavailable [phone] Elmer Paul MD Unavailable +[phone] Elmer Paul MD Unavailable [phone] Batool Torres NP Unavailable [phone] Marlene Benoit BIOFUELS PRODUCTION MANAGER Unavailable MelissaBatool Carito BIOFUELS PRODUCTION MANAGER Unavailable Encounter Details Date Type Department Care Team (Late st Contact Info) Description 03/19/2021 MyC Medical Advice [facility] Dax [address] [facility] [address] [place] [address] Carey Vuong MD [address] [facility] [place] [address] Social History Tobacco Use [...] and Family Once a week 12/12/2019 Attends Church Services More than 4 times per year [...] Answer Date Recorded PHQ-2 Score 0 12/12/2019 [facility] [place] of Occupat ional Health - Occupational Stress [...] Sex Assigned at Female 12/12/2019 6:30 PM CURING MACHINE OPERATOR Gender Identity Female 12/12/2019 6:30 PM CURING MACHINE OPERATOR Sexual Orientation Straight 04/04/2021 12 :18 PM CDT Travel History Travel Start Travel End [place] 12/06/2023 12/12/2023 documented as of this encounter Miscellaneous Notes * Telephone Encounter - Mara Canseco - 03/22/2021 11:45 AM CDT Talked to Danielle today and she is going to try the chewing gum. If not she will try the Chantix every other day. She likes the Citatopram to much. She is going to call me in a week if it is still not going well. Mara Canseco EMT 11:48 AM on March 22, 2021 [facility] Health Guide [phone] * Telephone Encounter - Mara Canseco - 03/20/2021 2:30 PM CDT Tried calling pt, no answer. Left message w [facility] direct line. Will call back tomorrow if I do not hear back today. Mara Canseco EMT 2:31 PM on March 20, 2021 [facility] Health Guide [phone] * Telephone Encounter - Carey Vuong MD - 03/19/2021 7:48 PM CDT pls reach out to her. Citalopram 40 mg is max dose. Would consider having her see MTM or me to discuss chantix vs other options. May do better with chantix if we get her mood better on different medication from celexa. Carey Vuong M.D. documented in this encounter Plan of Treatment Upcoming Encounters Date Type Department Care Team (Late st Contact Info) Description 03/19/2024 3:30 PM CDT Office Visit [facility] [place] [address] [facility] [address] [place] [phone] Elmer Paul MD 6504 [facility] [address] [place] [address] 04/16/2024 8:30 AM CDT Lab [facility] Heart [facility] [address] [facility] [address] [place] [phone] 04/20/2024 8:45 AM CDT Office Visit [facility] [address] [facility] [address] [place] [phone] Lavern Pope MD 6523 [facility] [address] [place] [address] documented as of this encounter Visit Diagnoses Not on filedocumented in this encounter Additional Health Concerns Assessment Noted Time PHQ-9 Depression Total Score: 2 12/16/19 20 7:02 AM CURING MACHINE OPERATOR documented as of this encounter Care Teams Order Editor Relationship Specialty Start Date End Date Carey Vuong MD [address] [facility] [place] [address] PCP - General 01/15/02 Mehreen Scott MD [address] [place] [address] recordings librarian 12/15/19 Lavern Gonzalez MD 420 [facility] 394 [place] [address] Assigned Surgical Provider 09/22/20 04/07/21 Carey Vuong MD [address] [facility] [place] [address] Assigned PCP 02/22/21 Lavern Gonzalez MD 420 [facility] 394 [place] [address] Assigned Surgical Provider 04/29/21 11/03/21 Prema Hitchcock PA-C [address] [place] [address] Assigned Surgical Provider 11/04/21 Chidi Puckett MD [address] [place] [address] Assigned Sleep Provider 02/17/22 10/31/23 Harriet Lindsay Personal Advocate & Liaison (PAL) 06/17/22 Aisha Murdock PA-C [facility] [address] [place] [address] Assigned Neuroscience Provider 06/08/22 11/28/23 Lavern Pope MD [address] [place] [address] Cardiovascular Disease 11/11/22 Lavern Pope MD [address] [place] [address] Assigned Heart and Vascular Provider 11/16/22 Elmer Paul MD [address] [place] [address] Allergy & Immunology 02/17/23 Elmer Paul MD [address] [place] [address] Assigned Allergy Provider 04/26/23 Batool Torres, ZENOBIA [address] [place] [address] Nurse Practitioner Pulmonary Disease 08/11/23 [place] [address] [place] [address] Nurse Practitioner Nurse Practitioner 10/29/23 Batool Torres NP [address] [place] [address] Assigned Pulmonology Provider 12/25/23 documented as of this encounter
--- OUTSIDE RECORDS SUMMARY | 2023-12-29 23:16 | XMS_ITS | Encounter Summary ---
Author Name Unknown Organization [facility] Address [address] [place] [address] Care Team Providers Care Bi Solutions Architect Name Role Phone Carey Vuong MD Primary Care Provider [phone] Carey Vuong MD Unavailable [phone] Mehreen Scott MD Unavailable +[phone] Lavern Gonzalez MD Unavailable [phone] Terry Romano MD Unavailable Carey Vuong MD Unavailable +[phone] Lavern Gonzalez MD Unavailable [phone] Prema Hitchcock PA-C Unavailable +[phone] Chidi Puckett MD Unabrendon lable Harriet Lindsay Unavailable Unavailable Aisha MurdockC Unavailable +[phone] Lavern Pope MD Unavailable [phone] Lavern Pope MD Unavailable [phone] Elmer Paul MD Unavailable +[phone] Elmer Paul MD Unavailable Batool Torres ORDER PROCESSING MANAGER Unavailable Marlene Benoit ORDER PROCESSING MANAGER Unavailable Batool Torres ORDER PROCESSING MANAGER Unavailable Reason for Visit * Reason Onset Date Comments Refill Request 09/29/2019 albuterol (PROAI R HFA/PROVENTIL HFA/VENTOLIN HFA) 108 (90 Base) MCG/ACT inhaler Encounter Details Date Type Department Care Team (Late st Contact Info) Description 09/29/2019 [facility] [address] [place] [address] Carey Vuong MD [address] [facility] [place] [id number] Refill Request (albuterol (PROAIR HFA/PROV... Social History Tobacco Use Types Packs/Day Years Used Date Smoking Tobacco: Former Cigarettes 0.5 10 Q uit: 08/01/2012 Smokeless Tobacco: Never Comments:smokes a single cig ar nightly Alcohol Use Standard Drinks/Week Comments Yes 5 (1 standard drink = 0.6 oz pur e alcohol) occ--2 per month PHQ-2 Answer Date Recorded PHQ-2 Score 2 09/30/2019 Sex and Gender Information Value Date Recorded Sex Assigned at Female 12/12/2019 6:30 PM STAFF RADIATION THERAPIST Gender Identity Female 12/12/2019 6:30 PM STAFF RADIATION THERAPIST Sexual Orientation Straight 04/04/2021 12 :18 PM CDT Travel History Travel Start Travel End [place] 12/06/2023 12/12/2023 documented as of this encounter Miscellaneous Notes * Telephone Encounter - Blanca Quinn RN - 09/29/2019 12:25 PM CDT Requested Prescriptions Pending Prescriptions Disp Refills ??? albuterol (PROAIR HFA/PROVENTIL HFA/VENTOLIN HFA) 108 (90 Base) MCG/ACT inhaler 1 Inhaler 0 Sig: Inhale 2 puffs into the lungs every 6 hours Asthma Maintenance Inhalers - Anticholinergics Failed - 09/29/2019 12:25 PM Failed - Asthma control assessment score within normal limits in last 6 months Please review ACT score. ACT Total Scores 10/06/2017 05/06/2018 08/17/2018 ACT TOTAL SCORE - - - ASTHMA ER VISITS - - - ASTHMA HOSPITALIZATIONS - - - ACT TOTAL SCORE (Goal Greater than or Equal to 20) 19 22 24 In the past 12 months, how many times did you visit the emergency room for your asthma without being admitted to the hospital? 0 0 0 In the past 12 months, how many times were you hospitalized overnight because of your asthma? 0 0 0 Failed - Recent (6 mo) or future (30 days) visit within the authorizing provider's specialty Patient had office visit in the last 6 months or has a visit in the next 30 days with authorizing provider or within the authorizing provider's specialty. See Patient Info tab in inbasket, or Choose Columns in Meds & Orders section of the refill encounter. Next Appt: 12/15/2019 with PCP Passed - Patient is age 12 years or older Passed - Medication is active on med list Routing refill request to provider for review/approval because: Drug not on the [facility] refill protocol Needs ACT update, pt has appt with PCP scheduled. documented in this encounter Plan of Treatment Upcoming Encounters Date Type Department Care Team (Late st Contact Info) Description 03/19/2024 3:30 PM CDT Office Visit [facility] Specialty [facility] [address] [facility] [address] [place] [phone] Elmer Paul MD [address] , [address] [place] [id number] 04/16/2024 8:30 AM CDT Lab [facility] [address] [facility] [address] [place] [phone] 04/20/2024 8:45 AM CDT Office Visit [facility] [address] [facility] [address] [place] [phone] Lavern Pope MD [address] [facility] [address] [place] [address] documented as of this encounter Visit Diagnoses Diagnosis Acute bronchitis, unspecified organism documented in this encounter Additional Health Concerns Infection Onset Date Last Indicated Resolved Time Rule Out COVID-19 01/11/2021 01/11/2021 01/11/2021 9:48 PM STAFF RADIATION THERAPIST Assessment Noted Time PHQ-9 Depression Total Score: 4 01/27/20 10:35 AM STAFF RADIATION THERAPIST documented as of this encounter Care Teams Bi Solutions Architect Relationship Specialty Start Date End Date Carey Vuong MD [address] [place] [address] [place] [address] PCP - General 01/15/02 Carey Vuong MD [address] [place] [address] [place] [address] Assigned PCP 01/13/17 12/16/20 Mehreen Scott MD [address] [place] [id number] storage battery inspector and tester 12/15/19 Lavern Gonzalez MD [address] [place] [address] [address] [place] [address] Assigned Surgical Provider 09/22/20 04/07/21 [place] [address] [address] Assigned PCP 12/17/20 02/21/21 Carey Voung MD [address] [place] [address] [place] [address] Assigned PCP 02/22/21 Lavern Gonzalez MD [address] [facility] [address] [place], [place] [address] Assigned Surgical Provider 04/29/21 11/03/21 Prema Hitchcock PA-C [address] [place] [address] Assigned Surgical Provider 11/04/21 Chidi Puckett MD [address] [place] [address] Assigned Sleep Provider 02/17/22 10/31/23 Harriet Lindsay Personal Advocate & Liaison (PAL) 06/17/22 Aisha Murdock PA-C [facility] [address] [place] [address] Assigned Neuroscience Provider 06/08/22 11/28/23 Lavern Pope MD [address] [facility] [address] [place] [address] Cardiovascular Disease 11/11/22 Lavern Pope MD [address] [facility] [facility] [address] [place] [address] Assigned Heart and Vascular Provider 11/16/22 Elmer Paul MD [address] [place] [address] Allergy & Immunology 02/17/23 Elmer Paul MD [address] [facility] [place] [facility] 200 [place] [address] Assigned Allergy Provider 04/26/23 Batool Torres, ORDER PROCESSING MANAGER [address] [facility] [place] [address] Nurse Practitioner Pulmonary Disease 08/11/23 [place] [address] [address] [place] [address] Nurse Practitioner Nurse Practitioner 10/29/23 Batool Torres, ORDER PROCESSING MANAGER [address] [facility] [place] [address] Assigned Pulmonology Provider 12/25/23 documented as of this encounter
--- OUTSIDE RECORDS SUMMARY | 2023-12-29 23:16 | XMS_ITS | Encounter Summary ---
Author Name Unknown Organization [facility] Address [address] [place] [address] Care Team Providers Care Thermospray Operator Name Role Phone Carey Vuong MD Primary Care Provider [phone] Carey Vuong MD Unavailable [phone] Mehreen Scott MD Unavailable [phone] Lavern Gonzalez MD Unavailable [phone] Terry Romano MD Unavailable Carey Vuong MD Unavailable [phone] Lavern Gonzalez MD Unavailable [phone] Prema Hitchcock PA-C Unavailable [phone] Chidi Puckett MD Unabrendon lable Harriet Lindsay Unavailable Unavailable Aisha MurdockC Unavailable +[phone] Lavern Pope MD Unavailable [phone] Lavern Pope MD Unavailable [phone] Elmer Paul MD Unavailable [phone] Elmer Paul MD Unavailable Batool Torres STIPPLER Unavailable [phone] Cy Marlene Randee STIPPLER Unavailable [phone] Batool Torres STIPPLER Unavailable Reason for Visit * Reason Onset Date Comments Medication Request 11/17/2019 chantix Symptoms 11/17/2019 sore throat/stuf fy head Encounter Details Date Type Department Care Team (Late st Contact Info) Description 11/17/2019 [facility] Medical Advice [facility] [address] [facility] [address] [place] [phone] Carey Vuong MD [address] [facility] [place] [address] Medication Request (chantix); Symptoms (so... Social History Tobacco Use Types Packs/Day Years [...] Sex Assigned at Female 12/12/2019 6:30 PM MICROCOMPUTER TECHNICIAN Gender Identity Female 12/12/2019 6:30 PM MICROCOMPUTER TECHNICIAN Sexual Orientation Straight 04/04/2021 12 :18 PM CDT Travel History Travel Start Travel End [place] 12/06/2023 12/12/2023 documented as of this encounter Plan of Treatment Upcoming Encounters Date Type Department Care Team (Late st Contact Info) Description 03/19/2024 3:30 PM CDT Office Visit [facility] [place] [address] [place] [address] [address] [place] [phone] Elmer Paul MD [address] [facility] [address] [place] [address] 04/16/2024 8:30 AM CDT Lab [facility] Heart [facility] [address] [facility] [address] [place] [phone] 04/20/2024 8:45 AM CDT Office Visit [facility] [place] [address] [facility] [address] [place] [phone] Lavern Pope MD [address] [facility] [address] [place] [id number] documented as of this encounter Visit Diagnoses Not on filedocumented in this encounter Additional Health Concerns Infection Onset Date Last Indicated Resolved Time Rule Out COVID-19 01/11/2021 01/11/2021 01/11/2021 9:48 PM MICROCOMPUTER TECHNICIAN Assessment Noted Time PHQ-9 Depression Total Score: 4 01/27/20 19 10:35 AM MICROCOMPUTER TECHNICIAN documented as of this encounter Care Teams Thermospray Operator Relationship Specialty Start Date End Date Carey Vuong MD [address] [place] [address] [place] [address] PCP - General 01/15/02 Carey Vuong MD [address] [place] [address] [place] [address] Assigned PCP 01/13/17 12/16/20 Mehreen Scott MD [address] [address] [place] [phone] geriatric care manager 12/15/19 Lavern Gonzalez MD [address] [place] [address] 394 [place] [address] Assigned Surgical Provider 09/22/20 04/07/21 [place] [address] [place] [address] Assigned PCP 12/17/20 02/21/21 Carey Vuong MD [address] [place] [address] Assigned PCP 02/22/21 Lavern Gonzalez MD [address] [facility] 394 [place], [place] [address] Assigned Surgical Provider 04/29/21 11/03/21 Prema Hitchcock PA-C [address] [facility] [place] [address] Assigned Surgical Provider 11/04/21 Chidi Puckett MD [address] [place] [address] Assigned Sleep Provider 02/17/22 10/31/23 Harriet Lindsay Personal Advocate & Liaison (PAL) 06/17/22 Aisha Murdock PA-C [facility] [address] [facility] [place] [place] [address] Assigned Neuroscience Provider 06/08/22 11/28/23 Lavern Pope MD [address] [facility] [address] [place] [id number] Cardiovascular Disease 11/11/22 Lavern Pope MD [address] [facility] [address] [place] [address] Assigned Heart and Vascular Provider 11/16/22 Elmer Paul MD [address] [place], [place] [address] Allergy & Immunology 02/17/23 Elmer Paul MD [address], [address] [place], [place] [address] Assigned Allergy Provider 04/26/23 Batool Torres NP [address] [place] [address] Nurse Practitioner Pulmonary Disease 08/11/23 [place] [address] [place] [address] Nurse Practitioner Nurse Practitioner 10/29/23 Batool Torres NP [address] [place] [address] Assigned Pulmonology Provider 12/25/23 documented as of this encounter
--- OUTSIDE RECORDS SUMMARY | 2023-12-29 23:16 | XMS_ITS | Encounter Summary ---
Author Name Unknown Organization [facility] Address [address] [place] [address] Care Team Providers Care Information Scientist Name Role Phone Carey Vuong MD Primary Care Provider [phone] Carey Vuong MD Unavailable [phone] Mehreen Scott MD Unavailable [phone] Lavern Gonzalez MD Unavailable [phone] Terry Romano MD Unavailable Carey Vuong MD Unavailable [phone] Lavern Gonzalez MD Unavailable [phone] Prema Hitchcock PA-C Unavailable [phone] Chidi Puckett MD Unabrendon lable Harriet Lindsay Unavailable Unavailable Aisha MurdockC Unavailable +[phone] Lavern Pope MD Unavailable [phone] Lavern Pope MD Unavailable [phone] Elmer Paul MD Unavailable [phone] Elmer Paul MD Unavailable Batool Torres FERRY ENGINEER Unavailable Marlene Benoit FERRY ENGINEER Unavailable Batool Torres FERRY ENGINEER Unavailable [phone] Encounter Details Date Type Department Care Team (Late st Contact Info) Description 08/31/2019 MyC Medical Advice [facility] [address] [facility] [address] [place] [phone] Carey Vuong MD [address] [facility] [place] [address] Social History Tobacco Use Types Packs/Day Years Used Date Smoking Tobacco: Former Cigarettes 0.5 10 Q uit: 08/01/2012 Smokeless Tobacco: Never Comments:smokes a single cig ar nightly Alcohol Use Standard Drinks/Week Comments Yes 5 (1 standard drink = 0.6 oz pur e alcohol) occ--2 per month PHQ-2 Answer Date Recorded PHQ-2 Score 0 08/10/2019 Sex and Gender Information Value Date Recorded Sex Assigned at Female 12/12/2019 6:30 PM ROOFING MACHINE OPERATOR Gender Identity Female 12/12/2019 6:30 PM ROOFING MACHINE OPERATOR Sexual Orientation Straight 04/04/2021 12 :18 PM CDT Travel History Travel Start Travel End [place] 12/06/2023 12/12/2023 documented as of this encounter Plan of Treatment Upcoming Encounters Date Type Department Care Team (Late st Contact Info) Description 03/19/2024 3:30 PM CDT Office Visit [facility] Specialty [facility] [address] [facility] [address] [place] [phone] Elmer Paul MD [address] [facility], [address] [place] [address] 04/16/2024 8:30 AM CDT Lab [facility] Heart [facility] [address] [facility] [address] [place] [phone] 04/20/2024 8:45 AM CDT Office Visit [facility] Heart [facility] [place] [address] [facility] [address] [place] [phone] Lavern Pope MD [address] [facility] [address] [place] [phone] documented as of this encounter Visit Diagnoses Not on filedocumented in this encounter Additional Health Concerns Infection Onset Date Last Indicated Resolved Time Rule Out COVID-19 01/11/2021 01/11/2021 01/11/2021 9:48 PM ROOFING MACHINE OPERATOR Assessment Noted Time PHQ-9 Depression Total Score: 4 01/27/20 19 10:35 AM ROOFING MACHINE OPERATOR documented as of this encounter Care Teams Information Scientist Relationship Specialty Start Date End Date Carey Vuong MD [address] [place] [address] [place] [address] PCP - General 01/15/02 Carey Vuong MD [address] [place] [address] [place] [address] Assigned PCP 01/13/17 12/16/20 Mehreen Scott MD [address] [facility] [address] [place] [phone] bridge gang worker 12/15/19 Lavern Gonzalez MD [address] [facility] 394 [place], [place] [address] Assigned Surgical Provider 09/22/20 04/07/21 [place] [address] [place] [address] Assigned PCP 12/17/20 02/21/21 Carey Vuong MD [address] [place] [address] Assigned PCP 02/22/21 Lavern Gonzalez MD [address] [facility] 394 [place] [address] Assigned Surgical Provider 04/29/21 11/03/21 Prema Hitchcock PA-C [address] [place] [address] Assigned Surgical Provider 11/04/21 Chidi Puckett MD [address] [place], [place] [address] Assigned Sleep Provider 02/17/22 10/31/23 Harriet Lindsay Personal Advocate & Liaison (PAL) 06/17/22 Aisha Murdock PA-C [facility] [address] [place] [address] Assigned Neuroscience Provider 06/08/22 11/28/23 Lavern Pope MD [address] [place] MD [address] Cardiovascular Disease 11/11/22 Lavern Pope MD [address] [place], [place] [address] Assigned Heart and Vascular Provider 11/16/22 Elmer Paul MD [address] [place] [address] Allergy & Immunology 02/17/23 Elmer Paul MD [address] [place] [address] Assigned Allergy Provider 04/26/23 Batool Torres, FERRY ENGINEER [address] [place] [address] Nurse Practitioner Pulmonary Disease 08/11/23 [place] [address] [place] [address] Nurse Practitioner Nurse Practitioner 10/29/23 Batool Torres, ZENOBIA [address] [place] [address] Assigned Pulmonology Provider 12/25/23 documented as of this encounter
--- OUTSIDE RECORDS SUMMARY | 2023-12-29 23:17 | XMS_ITS | Encounter Summary ---
Author Name Unknown Organization [facility] Address [address] [place] [address] Care Team Providers Care Major Donor Coordinator Name Role Phone Carey Vuong MD Primary Care Provider [phone] Carey Vuong MD Unavailable [phone] Mehreen Scott MD Unavailable [phone] Lavern Gonzalez MD Unavailable [phone] Terry Romano MD Unavailable Carey Vuong MD Unavailable [phone] Lavern Gonzalez MD Unavailable [phone] Prema Hitchcock PA-C Unavailable [phone] Chidi Puckett MD Unabrendon lable Harriet Lindsay Unavailable Unavailable Aisha MurdockC Unavailable +[phone] Lavern Pope MD Unavailable [phone] Lavern Pope MD Unavailable [phone] Elmer Paul MD Unavailable [phone] Elmer Paul MD Unavailable Batool Torres PIPE CHIPPER Unavailable [phone] Marlene Benoit PIPE CHIPPER Unavailable Batool Torres PIPE CHIPPER Unavailable [phone] Reason for Visit * Reason Onset Date Comments Refill Request 05/16/2019 montelukast (SIN GULAIR) 10 MG tablet (Discontinued) Refill Request 06/05/2019 Refill Request 06/15/2019 Encounter Details Date Type Department Care Team (Late st Contact Info) Description 05/16/2019 Refill [facility] [address] [place] [phone] Carey Vuong MD [address] [facility] [place] [id number] Refill Request (montelukast (SINGULAIR) 10 MG tablet (Discontinued)); Refill Request; Refill Request Social History Tobacco Use Types Packs/Day Years Used Date Smoking Tobacco: Former Cigarettes 0.5 10 Q uit: 08/01/2012 Smokeless Tobacco: Never Comments:smokes a single cig ar nightly Alcohol Use Standard Drinks/Week Comments Yes 5 (1 standard drink = 0.6 oz pur e alcohol) occ--2 per month PHQ-2 Answer Date Recorded PHQ-2 Score 1 12/08/2018 Sex and Gender Information Value Date Recorded Sex Assigned at Female 12/12/2019 6:30 PM CREDIT CARD INTERVIEWER Gender Identity Female 12/12/2019 6:30 PM CREDIT CARD INTERVIEWER Sexual Orientation Straight 04/04/2021 12 :18 PM CDT Travel History Travel Start Travel End [place] 12/06/2023 12/12/2023 documented as of this encounter Miscellaneous Notes * Telephone Encounter - Madan Ngo - 06/05/2019 5:38 PM CDT 2nd Fax request please follow up with Pt to approve or deny Rx. * Telephone Encounter - Madan Ngo - 05/16/2019 5:41 PM CDT montelukast (SINGULAIR) 10 MG tablet (Discontinued) 01/29/2012 Last Written Prescription Date: 10/01/2011 Last Fill Quantity: 30 tablet, # refills: 3 Last Office Visit: 01/27/2019 Carey Vuong MD Future Office visit: Routing refill request to provider for review/approval because: Drug not active on patient's medication list documented in this encounter Plan of Treatment Upcoming Encounters Date Type Department Care Team (Late st Contact Info) Description 03/19/2024 3:30 PM CDT Office Visit [facility] [address] [facility] [address] [place] [address] Elmer Paul MD [address] [facility] [address] [place] [address] 04/16/2024 8:30 AM CDT Lab [facility] [address] [facility] [address] [place] [phone] 04/20/2024 8:45 AM CDT Office Visit [facility] [address] [facility] [address] [place] [phone] Lavern Pope MD [address] [facility] [address] [place] [address] documented as of this encounter Visit Diagnoses Not on filedocumented in this encounter Additional Health Concerns Infection Onset Date Last Indicated Resolved Time Rule Out COVID-19 01/11/2021 01/11/2021 01/11/2021 9:48 PM CREDIT CARD INTERVIEWER Assessment Noted Time PHQ-9 Depression Total Score: 4 01/27/20 19 10:35 AM CREDIT CARD INTERVIEWER documented as of this encounter Care Teams Major Donor Coordinator Relationship Specialty Start Date End Date Carey Vuong MD [address] [place] [address] [place] [address] PCP - General 01/15/02 Carey Vuong MD [address] [place] [address] [place] [address] Assigned PCP 01/13/17 12/16/20 Mehreen Scott MD [facility] [address] [place] [address] director of marketing operations 12/15/19 Lavern Gonzalez MD [address] [place] [address] Assigned Surgical Provider 09/22/20 04/07/21 [place] [address] [place] [address] Assigned PCP 12/17/20 02/21/21 [place] [address] [place] [address] [place] [address] Assigned PCP 02/22/21 Lavern Gonzalez MD [address] [place] [address] Assigned Surgical Provider 04/29/21 11/03/21 Prema Hitchcock PA-C [address] [facility] [place] [place] [address] Assigned Surgical Provider 11/04/21 Chidi Puckett MD [address] [place] [address] Assigned Sleep Provider 02/17/22 10/31/23 Harriet Lindsay Personal Advocate & Liaison (PAL) 06/17/22 Aisha Murdock PA-C [facility] [address] [facility] [place], [place] [address] Assigned Neuroscience Provider 06/08/22 11/28/23 Lavern Pope MD [address] [facility] [address] [place], [place] [address] MD Cardiovascular Disease 11/11/22 Lavern Pope MD [address] [facility] 275 [place], [place] [address] Assigned Heart and Vascular Provider 11/16/22 Elmer Paul MD [address] [place], [place] [address] Allergy & Immunology 02/17/23 Elmer Paul MD 6525 [facility], [address] [place], [place] [address] Assigned Allergy Provider 04/26/23 Batool Torres NP [address] [facility] [place], [place] [address] Nurse Practitioner Pulmonary Disease 08/11/23 [place] [address] [place] [address] Nurse Practitioner Nurse Practitioner 10/29/23 Batool Torres NP [address] [place] [address] Assigned Pulmonology Provider 12/25/23 documented as of this encounter
--- OUTSIDE RECORDS SUMMARY | 2023-12-29 23:17 | XMS_ITS | Encounter Summary ---
Author Name Unknown Organization [place] Address [address] [place] [address] Care Team Providers Care Cryptanalyst Name Role Phone Carey Vuong MD Primary Care Provider [phone] Carey Vuong MD Unavailable [phone] Carey Vuong MD Unavailable [phone] Mehreen Scott MD Unavailable [phone] Lavern Gonzalez MD Unavailable [phone] Terry Romano MD Unavailable Carey Vuong MD Unavailable [phone] Lavern Gonzalez MD Unavailable [phone] Prema Hitchcock-C Unavailable +[phone] Chidi Puckett MD Harriet Lindsay Unavailable Unavailable Aisha Murdock PA-C Unavailable +[phone] Lavern Pope MD Unavailable [phone] Lavern Pope MD Unavailable [phone] Elmer Paul MD Unavailable Elmer Paul MD Unavailable Batool Torres RICE CLEANING MACHINE TENDER Unavailable [phone] Marlene Benoit RICE CLEANING MACHINE TENDER Unavailable Batool Torres RICE CLEANING MACHINE TENDER Unavailable Encounter Details Date Type Department Care Team (Latest Contact Info) Description 02/12/2017 Historic Results Social History Tobacco Use Types Packs/Day Years Used Date Smoking Tobacco: Former Cigarettes 0.5 10 Q uit: 08/01/2012 Smokeless Tobacco: Never Comments:smokes a single cig ar nightly Alcohol Use Standard Drinks/Week Comments Yes 5 (1 standard drink = 0.6 oz pur e alcohol) occ--2 per month Sex and Gender Information Value Date Recorded Sex Assigned at Female 12/12/2019 6:30 PM KIER PLEATER Gender Identity Female 12/12/2019 6:30 PM KIER PLEATER Sexual Orientation Straight 04/04/2021 12 :18 PM CDT Travel History Travel Start Travel End [place] 12/06/2023 12/12/2023 documented as of this encounter Plan of Treatment Upcoming Encounters Date Type Department Care Team (Late st Contact Info) Description 03/19/2024 3:30 PM CDT Office [facility] Specialty [facility] [address] [facility] [address] [place] [phone] Elmer Paul MD 8[address] [facility] 200 [place] [address] 04/16/2024 8:[address] [facility] Heart [facility] [address] [facility] [address] [place] [phone] 04/20/2024 8:45 AM CDT Office [facility] Heart [facility] [address] [facility] [address] [place] [phone] Lavern Pope MD [address] [facility] [address] [place] [address] documented as of this encounter Visit Diagnoses Not on filedocumented in this encounter Additional Health Concerns Infection Onset Date Last Indicated Resolved Time Rule Out COVID-19 01/11/2021 01/11/2021 01/11/2021 9:48 PM KIER PLEATER Assessment Noted Time PHQ-9 Depression Total Score: 12 02/13/ 017 7:12 AM CDT documented as of this encounter Care Teams Cryptanalyst Relationship Specialty Start Date End Date Carey Vuong MD [address] [place] [address] [place] [address] PCP - General 01/15/02 Carey Vuong MD [address] [place] [address] [place] [address] PCP - Assigned PCP 01/13/17 02/02/19 Carey Vuong MD [address] [place] [address] [place] [address] Assigned PCP 01/13/17 12/16/20 Mehreen Scott MD [address] [phone] automotive parts specialist 12/15/19 Lavern Gonzalez MD [address] [place] [address] 394 [place] [address] Assigned Surgical Provider 09/22/20 04/07/21 [place] [address] [place] [address] Assigned PCP 12/17/20 02/21/21 Carey Vuong MD [address] [facility] [place] [address] Assigned PCP 02/22/21 Lavern Gonzalez MD [address] [facility] 394 [place] [address] Assigned Surgical Provider 04/29/21 11/03/21 Prema Hitchcock PA-C [address] [place] [address] Assigned Surgical Provider 11/04/21 Chidi Puckett MD [address] [place], [place] [address] Assigned Sleep Provider 02/17/22 10/31/23 Harriet Lindsay Personal Advocate & Liaison (PAL) 06/17/22 Aisha Murdock PA-C [facility] [address] [place] [address] Assigned Neuroscience Provider 06/08/22 11/28/23 Lavern Pope MD [address] [place] [address] Cardiovascular Disease 11/11/22 Lavern Pope MD [address] [place] [address] Assigned Heart and Vascular Provider 11/16/22 Elmer Paul MD [address] [place] [address] Allergy & Immunology 02/17/23 Elmer Paul MD [address] , [facility] 200 [place] [address] Assigned Allergy Provider 04/26/23 Batool Torres, RICE CLEANING MACHINE TENDER [address] [facility] [place] [address] Nurse Practitioner Pulmonary Disease 08/11/23 [place] [address] [place] [address] Nurse Practitioner Nurse Practitioner 10/29/23 Batool Torres, RICE CLEANING MACHINE TENDER [address] [facility] [place] [address] Assigned Pulmonology Provider 12/25/23 documented as of this encounter
--- OUTSIDE RECORDS SUMMARY | 2023-12-29 23:17 | XMS_ITS | Encounter Summary ---
Author Name Unknown Organization [place] Address [address] [place] [address] Care Team Providers Care Circle Cutting Saw Operator Name Role Phone Carey Vuong MD Primary Care Provider [phone] Carey Vuong MD Unavailable [phone] Carey Vuong MD Unavailable [phone] Mehreen Scott MD Unavailable +[phone] Lavern Gonzalez MD Unavailable [phone] Terry Romano MD Unavailable Carey Vuong MD Unavailable +[phone] Lavern Gonzalez MD Unavailable [phone] Prema Hitchcock-C Unavailable [phone] Chidi Puckett MD Harriet Lindsay Unavailable Unavailable Aisha Murdock PA-C Unavailable +[phone] Lavern Pope MD Unavailable +[phone] Lavern Pope MD Unavailable [phone] Elmer Paul MD Unavailable [phone] Elmer Paul MD Unavailable [phone] Batool Torres AGRICULTURE RESEARCH DIRECTOR Unavailable CyMarlene Steinberg Randee AGRICULTURE RESEARCH DIRECTOR Unavailable [phone] Batool Torres AGRICULTURE RESEARCH DIRECTOR Unavailable Encounter Details Date Type Department Care Team (Late st Contact Info) Description 02/09/2015 [facility] Medical Advice [facility] [address] [facility] [place] [phone] Carey Vuong MD [address] [facility] [place] [id number] Social History Tobacco Use Types Packs/Day Years Used Date Smoking Tobacco: Every Day Cigarettes 0.5 10 Last attempted to quit: 08/01/2012 Smokeless Tobacco: Never Comments:smokes a single cig ar nightly Alcohol Use Standard Drinks/Week Comments Yes 5 (1 standard drink = 0.6 oz pur e alcohol) occ--2 per month Sex and Gender Information Value Date Recorded Sex Assigned at Female 12/12/2019 6:30 PM WOUND TREATMENT RN Gender Identity Female 12/12/2019 6:30 PM WOUND TREATMENT RN Sexual Orientation Straight 04/04/2021 12 :18 PM CDT Travel History Travel Start Travel End [place] 12/06/2023 12/12/2023 documented as of this encounter Miscellaneous Notes * Telephone Encounter - Paty Nielsen RN - 02/09/2015 11:08 AM CDT Patient sent my-chart. She has been having headaches in the last weeks, so we placed an order for physical therapy for the neck pain. We have also ordered CT scan for the head/brain. My-chart sent to patient asking if she has scheduled either. PCP has also been considering prednisone. Awaiting patient's response. Will call Dr Vuong with further recommendations. Paty Nielsen RN Message handled by Nurse Triage. documented in this encounter Plan of Treatment Upcoming Encounters Date Type Department Care Team (Late st Contact Info) Description 03/19/2024 3:30 PM CDT Office Visit [facility] [place] [address] [facility] [address] [place] [phone] Elmer Paul MD [address] [facility] [address] [place] [id number] 04/16/2024 8:30 AM CDT Lab [facility] [address] [facility] [address] [place] [phone] 04/20/2024 8:45 AM CDT Office Visit [facility] [address] [facility] [address] [place] [phone] Lavern Pope MD [address] [facility] [address] [place] [address] documented as of this encounter Visit Diagnoses Not on filedocumented in this encounter Additional Health Concerns Infection Onset Date Last Indicated Resolved Time Rule Out COVID-19 01/11/2021 01/11/2021 01/11/2021 9:48 PM WOUND TREATMENT RN documented as of this encounter Care Teams Circle Cutting Saw Operator Relationship Specialty Start Date End Date Carey Vuong MD [address] [place] [address] [place] [address] PCP - General 01/15/02 Carey Vuong MD [address] [place] [address] [place] [address] PCP - Assigned PCP 01/13/17 02/02/19 Carey Vuong MD [address] [place] [address] [place] [address] Assigned PCP 01/13/17 12/16/20 Mehreen Scott MD [address] [facility] 100 [place] [phone] insert cutter 12/15/19 Lavern Gonzalez MD [address] [facility] 394 [place], [place] [address] Assigned Surgical Provider 09/22/20 04/07/21 [place] [address] [place] [address] Assigned PCP 12/17/20 02/21/21 Carey Vuong MD [address] [place] [address] Assigned PCP 02/22/21 Lavern Gonzalez MD [address] 4157[address] Assigned Surgical Provider 04/29/21 11/03/21 Prema Hitchcock PA-C 6405 [place], [place] [address] Assigned Surgical Provider 11/04/21 Chidi Puckett MD 606 [address] 106 [place], [place] [address]394 Assigned Sleep Provider 02/17/22 10/31/23 Harriet Lindsay Personal Advocate & Liaison (PAL) 06/17/22 Aisha Murdock PA-C [facility] [address] [place] [address] Assigned Neuroscience Provider 06/08/22 11/28/23 Lavern Pope MD [address] [place], [place] [address] Cardiovascular Disease 11/11/22 Lavern Pope MD [address] [place], [place] [address] Assigned Heart and Vascular Provider 11/16/22 Elmer Paul MD [address], [address] [place], [place] [address] Allergy & Immunology 02/17/23 Elmer Paul MD [address], [address] [place], [place] [address] Assigned Allergy Provider 04/26/23 Batool Torres NP [address] [place] [address] Nurse Practitioner Pulmonary Disease 08/11/23 [place] [address] [place] [address] Nurse Practitioner Nurse Practitioner 10/29/23 Batool Torres NP [address]55 [place] [address] Assigned Pulmonology Provider 12/25/23 documented as of this encounter
--- OUTSIDE RECORDS SUMMARY | 2023-12-29 23:17 | XMS_ITS | Encounter Summary ---
Author Name Unknown Organization [facility] Address [address] [place] [address] Care Team Providers Care Corporate Travel Counselor Name Role Phone Carey Vuong MD Primary Care Provider [phone] Carey Vuong MD Unavailable [phone] Mehreen Scott MD Unavailable [phone] Lavern Gonzalez MD Unavailable [phone] Terry Romano MD Unavailable Carey Vuong MD Unavailable [phone] Lavern Gonzalez MD Unavailable [phone] Prema Hitchcock PA-C Unavailable [phone] Chidi Puckett MD Unabrendon lable Harriet Lindsay Unavailable Unavailable Aisha MurdockC Unavailable +[phone] Lavern Pope MD Unavailable [phone] Lavern Pope MD Unavailable [phone] Elmer Paul MD Unavailable [phone] Elmer Paul MD Unavailable Batool Torres SUPERVISING FILM OR VIDEOTAPE EDITOR Unavailable [phone] Marlene Benoit SUPERVISING FILM OR VIDEOTAPE EDITOR Unavailable Batool Torres SUPERVISING FILM OR VIDEOTAPE EDITOR Unavailable Encounter Details Date Type Department Care Team (Late Contact Info) Description 08/11/2019 MyC Medical Advice [facility] [address] [facility] [address] 4th [place] [address] Lavern Gonzalez MD 420 [facility] 394 [place] [address] Social History Tobacco Use Types Packs/Day Years [...] Sex Assigned at Female 12/12/2019 6:30 PM PHYSICIANS AND SURGEONS Gender Identity Female 12/12/2019 6:30 PM [employer] Sexual Orientation Straight 04/04/2021 12 :18 PM CDT Travel History Travel Start Travel End [place] 12/06/2023 12/12/2023 documented as of this encounter Miscellaneous Notes * Telephone Encounter - Lavern Patino RN - 08/11/2019 10:04 AM CDT Called Danielle with results as below. She expressed understanding. ----- Message from Lavern Gonzalez MD sent at 08/11/2019 9:03 AM CDT ----- Ms Elver Garza the urine test from yesterday is normal. No further testing at this time Piyush Gonzalez MD documented in this encounter Plan of Treatment Upcoming Encounters Date Type Department Care Team (Late Contact Info) Description 03/19/2024 3:30 PM CDT Office Visit [facility] [place] [address] [facility] [address] [place] [phone] Elmer Paul MD [address] [facility] [address] [place] [address] 04/16/2024 8:30 AM CDT Lab [facility] Heart [facility] [address] [facility] [address] [place] [phone] 04/20/2024 8:45 AM CDT Office Visit [facility] [address] [facility] [address] [place] [phone] Lavern Pope MD [address] [facility] [address] [place] [phone] documented as of this encounter Visit Diagnoses Not on filedocumented in this encounter Additional Health Concerns Infection Onset Date Last Indicated Resolved Time Rule Out COVID-19 01/11/2021 01/11/2021 01/11/2021 9:48 PM PHYSICIANS AND SURGE[employer] Assessment Noted Time PHQ-9 Depression Total Score: 4 01/27/20 19 10:35 AM PH[employer] documented as of this encounter Care Teams Corporate Travel Counselor Relationship Specialty [place] [address] [place] [address] [place] [address] PCP - General 01/15/02 Carey Voung MD [address] [facility] [place] [address] Assigned PCP 01/13/17 12/16/20 Mehreen Scott MD [address] [place] [phone] event sales manager 12/15/19 Lavern Gonzalez MD 420 [facility] 394 [place], [place] [address] Assigned Surgical Provider 09/22/20 04/07/21 [place] [address] [place] [address] Assigned PCP 12/17/20 02/21/21 Carey Vuong MD [address] [facility] [address] [place] [id number] Assigned PCP 02/22/21 Lavern Gonzalez MD 420 [facility] 394 [place], [place] [address] Assigned Surgical Provider 04/29/21 11/03/21 Prema Hitchcock PA-C 6405 [place] [address] Assigned Surgical Provider 11/04/21 Chidi Puckett MD [address] [facility] 106 [place] [address] Assigned Sleep Provider 02/17/22 10/31/23 Harriet Lindsay Personal Advocate & Liaison (PAL) 06/17/22 Aisha Murdock PA-C [facility] [address] [place] [address] Assigned Neuroscience Provider 06/08/22 11/28/23 Lavern Pope MD [address] [place] [phone] Cardiovascular Disease 11/11/22 Lavern Pope MD [address] [place] [address] Assigned Heart and Vascular Provider 11/16/22 Elmer Paul MD [address], [address] [place], [place] [address] Allergy & Immunology 02/17/23 Elmer Paul MD [address], [address] [place], [place] [address] Assigned Allergy Provider 04/26/23 Batool Torres NP [address] [place] [address] Nurse Practitioner Pulmonary Disease 08/11/23 [place] [address] [place] [address] Nurse Practitioner Nurse Practitioner 10/29/23 Batool Torres NP [address] [facility] [facility] [place] [address] Assigned Pulmonology Provider 12/25/23 documented as of this encounter
--- OUTSIDE RECORDS SUMMARY | 2023-12-29 23:17 | XMS_ITS | Encounter Summary ---
Author Name Unknown Organization [facility] Address [address] [place] [address] Care Team Providers Care Modern Dancer Name Role Phone Carey Vuong MD Primary Care Provider [phone] Carey Vuong MD Unavailable [phone] Carey Vuong MD Unavailable [phone] Mehreen Scott MD Unavailable [phone] Lavern Gonzalez MD Unavailable [phone] Terry Romano MD Unavailable Carey Vuong MD Unavailable +[phone] Lavern Gonzalez MD Unavailable [phone] Prema Hitchcock-C Unavailable +[phone] Chidi Puckett MD Harriet Lindsay Unavailable Unavailable Aisha Murdock PA-C Unavailable +[phone] Lavern Pope MD Unavailable [phone] Lavern Pope MD Unavailable [phone] Elmer Paul MD Unavailable [phone] Elmer Paul MD Unavailable [phone] Batool Torres JOY OPERATOR HELPER Unavailable [phone] Marlene Benoit JOY OPERATOR HELPER Unavailable Batool Torres JOY OPERATOR HELPER Unavailable Reason for Visit * Reason Onset Date Comments Medication Request 02/12/2017 citalopram Encounter Details Date Type Department Care Team (Late st Contact Info) Description 02/12/2017 MyC Medical Advice [facility] [address] [facility] [address] [place] [phone] Carey Vuong MD [address] [facility] [place] [address] Medication Request (citalopram) Social History Tobacco Use Types Packs/Day Years Used Date Smoking Tobacco: Former Cigarettes 0.5 10 Q uit: 08/01/2012 Smokeless Tobacco: Never Comments:smokes a single cig ar nightly Alcohol Use Standard Drinks/Week Comments Yes 5 (1 standard drink = 0.6 oz pur e alcohol) occ--2 per month Sex and Gender Information Value Date Recorded Sex Assigned at Female 12/12/2019 6:30 PM CHIEF OPERATING OFFICER Gender Identity Female 12/12/2019 6:30 PM CHIEF OPERATING OFFICER Sexual Orientation Straight 04/04/2021 12 :18 PM CDT Travel History Travel Start Travel End [place] 12/06/2023 12/12/2023 documented as of this encounter Miscellaneous Notes * Telephone Encounter - Paty Nielsen RN - 02/12/2017 9:30 AM CDT Patient replied, completed PHQ-9, score 12-it was 2 a month ago. Please review. Last seen on 01/28. PHQ-9 score: PHQ-9 SCORE 02/12/2017 [facility] (Moderate depression) Paty Nielsen RN Message handled by Nurse Triage. * Telephone Encounter - Paty Nielsen RN - 02/12/2017 8:41 AM CDT Please review-patient asking to increase citalopram. PHQ-9 sent to patient. PHQ-9 score: PHQ-9 SCORE 01/07/2017 Total Score MyChart 2 (Minimal depression) Paty Nielsen RN Message handled by Nurse Triage. documented in this encounter Plan of Treatment Upcoming Encounters Date Type Department Care Team (Late st Contact Info) Description 03/19/2024 3:30 PM CDT Office Visit [facility] Specialty [facility] [address] [facility] [address] [place] [phone] Elmer Paul MD [address] [facility] [address] [place] [address] 04/16/2024 8:30 AM CDT Lab [facility] Heart [facility] [address] [facility] [address] [place] [phone] 04/20/2024 8:45 AM CDT Office Visit [facility] [address] [facility] [address] [place] [phone] Lavern Pope MD [address] [facility] [address] [place] [address] documented as of this encounter Visit Diagnoses Diagnosis Major depressive disorder, recurrent episode, moderate (H)- Primary Major depressive disorder, recurrent episode, moderate documented in this encounter Additional Health Concerns Infection Onset Date Last Indicated Resolved Time Rule Out COVID-19 01/11/2021 01/11/2021 01/11/2021 9:48 PM CHIEF OPERATING OFFICER Assessment Noted Time PHQ-9 Depression Total Score: 12 017 7:12 AM CDT documented as of this encounter Care Teams Modern Dancer Relationship Specialty Start Date End Date Carey Vuong MD [address] [place] [address] [place] [address] PCP - General 01/15/02 Carey Vuong MD [address] [place] [address] [place] [address] PCP - Assigned PCP 01/13/17 02/02/19 Carey Vuong MD [address] [place] [address] [place] [address] Assigned PCP 01/13/17 12/16/20 Mehreen Scott MD [address] [phone] harness inspector 12/15/19 Lavern Gonzalez MD [address] [place] [address] Assigned Surgical Provider 09/22/20 04/07/21 [place] [address] [place] [address] Assigned PCP 12/17/20 02/21/21 Carey Vuong MD [address] [place] [address] [place] [address] Assigned PCP 02/22/21 Lavern Gonzalez MD [address] [place] [address] Assigned Surgical Provider 04/29/21 11/03/21 Prema Hitchcock PA-C [address] [facility] [place] [address] Assigned Surgical Provider 11/04/21 Chidi Puckett MD [address] [place], [place] [address] Assigned Sleep Provider 02/17/22 10/31/23 Harriet Lindsay Personal Advocate & Liaison (PAL) 06/17/22 Aisha Murdock PA-C [facility] [address] [facility] [place] [address] Assigned Neuroscience Provider 06/08/22 11/28/23 Lavern Pope MD [address] [facility] [address] [place], [place] [address] Cardiovascular Disease 11/11/22 Lavern Pope MD [address] [facility] [address] [place], [place] [address] Assigned Heart and Vascular Provider 11/16/22 Elmer Paul MD [address] [place] [address] Allergy & Immunology 02/17/23 Elmer Paul MD [address] [place] [address] Assigned Allergy Provider 04/26/23 Batool Torres, JOY OPERATOR HELPER [address] [facility] [place] [address] Nurse Practitioner Pulmonary Disease 08/11/23 [place] [address] [place] [address] Nurse Practitioner Nurse Practitioner 10/29/23 Batool Torres NP [address] [place] [address] Assigned Pulmonology Provider 12/25/23 documented as of this encounter
--- OUTSIDE RECORDS SUMMARY | 2023-12-29 23:17 | XMS_ITS | Encounter Summary ---
Author Name Unknown Organization [facility] Address [address] [place] [address] Care Team Providers Care Proof Passer Name Role Phone Carey Vuong MD Primary Care Provider [phone] Carey Vuong MD Unavailable [phone] Mehreen Scott MD Unavailable [phone] Lavern Gonzalez MD Unavailable +[phone] Terry Romano MD Unavailable Carey Vuong MD Unavailable +[phone] Lavern Gonzalez MD Unavailable +[phone] Prema Hitchcock PA-C Unavailable +[phone] Chidi Puckett MD Unabrendon lable Harriet Lindsay Unavailable Unavailable Aisha MurdockC Unavailable +[phone] Lavern Pope MD Unavailable [phone] Lavern Pope MD Unavailable [phone] Elmer Paul MD Unavailable +[phone] Elmer Paul MD Unavailable Batool Torres NEWSPAPER PHOTO EDITOR Unavailable [phone] Marlene Benoit NEWSPAPER PHOTO EDITOR Unavailable Batool Torres NEWSPAPER PHOTO EDITOR Unavailable Encounter Details Date Type Department Care Team (Late st Contact Info) Description 02/22/2019 [facility] Medical Advice [facility] [address] [facility] [address] [place] [phone] Carey Vuong MD [address] [facility] [place] [address] Social History Tobacco [...] Sex Assigned at Female 12/12/2019 6:30 PM DRIVER LICENSE AGENT Gender Identity Female 12/12/2019 6:30 PM DRIVER LICENSE AGENT Sexual Orientation Straight 04/04/2021 12 :18 PM CDT Travel History Travel Start Travel End [place] 12/06/2023 12/12/2023 documented as of this encounter Plan of Treatment Upcoming Encounters Date Type Department Care Team (Late st Contact Info) Description 03/19/2024 3:30 PM CDT Office Visit [facility] Specialty [facility] [address] [facility] [address] [place] [phone] Elmer Paul MD [address] [facility] [address] [place] [address] 04/16/2024 8:30 AM CDT Lab [facility] Heart [facility] [address] [facility] [address] [place] [phone] 04/20/2024 8:45 AM CDT Office Visit [facility] Heart [facility] [address] [facility] [address] [place] [phone] Lavern Pope MD [address] [facility] [address] [place] [id number] documented as of this encounter Visit Diagnoses Not on filedocumented in this encounter Additional Health Concerns Infection Onset Date Last Indicated Resolved Time Rule Out COVID-19 01/11/2021 01/11/2021 01/11/2021 9:48 PM DRIVER LICENSE AGENT Assessment Noted Time PHQ-9 Depression Total Score: 4 01/27/20 19 10:35 AM DRIVER LICENSE AGENT documented as of this encounter Care Teams Proof Passer Relationship Specialty Start Date End Date Carey Vuong MD [address] [place] [address] [place] [address] PCP - General 01/15/02 Carey Vuong MD [address] [place] [address] [place] [address] Assigned PCP 01/13/17 12/16/20 Mehreen Scott MD [address] [facility] 100 [place] [phone] master planner 12/15/19 Lavern Gonzalez MD [address] [facility] [address] [place], [place] [address] Assigned Surgical Provider 09/22/20 04/07/21 [place] [address] [place] [address] Assigned PCP 12/17/20 02/21/21 Carey Vuong MD [address] [facility] [place] [address] Assigned PCP 02/22/21 Lavern Gonzalez MD [address] [facility] [address] [place] [address] Assigned Surgical Provider 04/29/21 11/03/21 Prema Hitchcock PA-C [address] [place] [address] Assigned Surgical Provider 11/04/21 Chidi Puckett MD [address] [place], [place] [address] Assigned Sleep Provider 02/17/22 10/31/23 Harriet Lindsay Personal Advocate & Liaison (PAL) 06/17/22 Aisha Murdock PA-C [facility] [address] [place] [address] Assigned Neuroscience Provider 06/08/22 11/28/23 Lavern Pope MD [address] [place] [address] Cardiovascular Disease 11/11/22 Lavern Pope MD [address] [place], [place] [address] Assigned Heart and Vascular Provider 11/16/22 Elmer Paul MD [address] [place] [address] Allergy & Immunology 02/17/23 Elmer Paul MD [address] [place] [address] Assigned Allergy Provider 04/26/23 Batool Torres, NEWSPAPER PHOTO EDITOR [address] [place] [address] Nurse Practitioner Pulmonary Disease 08/11/23 [place] [address] [address] [place] [address] Nurse Practitioner Nurse Practitioner 10/29/23 Batool Torres, ZENOBIA [address] [place] [address] Assigned Pulmonology Provider 12/25/23 documented as of this encounter
--- OUTSIDE RECORDS SUMMARY | 2023-12-29 23:17 | XMS_ITS | Encounter Summary ---
Author Name Unknown Organization [facility] Address [address] [place] [address] Care Team Providers Care Sectional Belt Mold Assembler Name Role Phone Carey Vuong MD Primary Care Provider [phone] Carey Vuong MD Unavailable [phone] Carey Vuong MD Unavailable [phone] Mehreen Scott MD Unavailable [phone] Lavern Gonzalez MD Unavailable [phone] Terry Romano MD Unavailable Carey Vuong MD Unavailable +[phone] Lavern Gonzalez MD Unavailable [phone] Prema Hitchcock-C Unavailable +[phone] Chidi Puckett MD Harriet Lindsay Unavailable Unavailable Aisha Murdock PA-C Unavailable +[phone] Lavern Pope MD Unavailable +[phone] Lavern Pope MD Unavailable [phone] Elmer Paul MD Unavailable Elmer Paul MD Unavailable +[phone] Batool Torres AUTO FLEET MANAGER Unavailable [phone] Marlene Benoit AUTO FLEET MANAGER Unavailable [phone] Batool Torres AUTO FLEET MANAGER Unavailable [phone] Encounter Details Date Type Department Care Team (Late st Contact Info) Description 05/23/2016 [facility] Medical Advice [facility] [address] [facility] [place] [phone] Liza Gordon LPN Social History Tobacco Use Types Packs/Day Years Used Date Smoking Tobacco: Former Cigarettes 0.5 10 Q uit: 08/01/2012 Smokeless Tobacco: Never Comments:smokes a single cig ar nightly Alcohol Use Standard Drinks/Week Comments Yes 5 (1 standard drink = 0.6 oz pur e alcohol) occ--2 per month Sex and Gender Information Value Date Recorded Sex Assigned at Female 12/12/2019 6:30 PM REGISTER CLERK Gender Identity Female 12/12/2019 6:30 PM REGISTER CLERK Sexual Orientation Straight 04/04/2021 12 :18 PM CDT Travel History Travel Start Travel End [place] 12/06/2023 12/12/2023 documented as of this encounter Plan of Treatment Upcoming Encounters Date Type Department Care Team (Late st Contact Info) Description 03/19/2024 3:30 PM CDT Office Visit [facility] [address] [facility] [address] [place] [phone] Elmer Paul MD [address] [facility] [address] [place] [address] 04/16/2024 8:30 AM CDT Lab [facility] [address] [facility] [address] [place] [phone] 04/20/2024 8:45 AM CDT Office Visit [facility] [address] [facility] [address] [place] [phone] Lavern Pope MD [address] [facility] 275 [place], [place] [address] documented as of this encounter Visit Diagnoses Not on filedocumented in this encounter Additional Health Concerns Infection Onset Date Last Indicated Resolved Time Rule Out COVID-19 01/11/2021 01/11/2021 01/11/2021 9:48 PM REGISTER CLERK Assessment Noted Time PHQ-9 Depression Total Score: 0 12/29/19 16 7:51 AM REGISTER CLERK documented as of this encounter Care Teams Sectional Belt Mold Assembler Relationship Specialty Start Date End Date Carey Vuong MD [address] [place] [address] [place] [phone] PCP - General 01/15/02 Carey Vuong MD [address] [place] [address] [place] [address] PCP - Assigned PCP 01/13/17 02/02/19 Carey Vuong MD [address] [place] [address] [place] [id number] Assigned PCP 01/13/17 12/16/20 Mehreen Scott MD [address] [place] [phone] line maintainer 12/15/19 Lavern Gonzalez MD [address] [place] [address] 394 [place] [address] Assigned Surgical Provider 09/22/20 04/07/21 [place] [address] [place] [address] Assigned PCP 12/17/20 02/21/21 Carey Vuong MD [address] [facility] [place] [address] Assigned PCP 02/22/21 Lavern Gonzalez MD [address] [facility] 394 [place], [place] [address] Assigned Surgical Provider 04/29/21 11/03/21 Prema Hitchcock PA-C [address] [place] [address] Assigned Surgical Provider 11/04/21 Chidi Puckett MD [address] [place] [address] Assigned Sleep Provider 02/17/22 10/31/23 Harriet Lindsay Personal Advocate & Liaison (PAL) 06/17/22 Aisha Murdock PA-C [facility] [address] [place] [address] Assigned Neuroscience Provider 06/08/22 11/28/23 Lavern Pope MD [address] [place] [address] Cardiovascular Disease 11/11/22 Lavern Pope MD [address] [place] [address] Assigned Heart and Vascular Provider 11/16/22 Elmer Paul MD [address] [place] [phone] Allergy & Immunology 02/17/23 Elmer Paul MD [address] [place] [address] Assigned Allergy Provider 04/26/23 Batool Torres NP [address] [facility] [address] Nurse Practitioner Pulmonary Disease 08/11/23 [place] [address] [place] [address] Nurse Practitioner Nurse Practitioner 10/29/23 Batool Torres NP [address] [place] [address] Assigned Pulmonology Provider 12/25/23 documented as of this encounter
--- OUTSIDE RECORDS SUMMARY | 2023-12-29 23:17 | XMS_ITS | Encounter Summary ---
Author Name Unknown Organization [facility] Address [address] [place] [address] Care Team Providers Care Wrecker Operator Name Role Phone Carey Vuong MD Primary Care Provider [phone] Carey Vuong MD Unavailable [phone] Carey Vuong MD Unavailable [phone] Mehreen Scott MD Unavailable [phone] Lavern Gonzalez MD Unavailable [phone] Terry Romano MD Unavailable Carey Vuong MD Unavailable [phone] Lavern Gonzalez MD Unavailable [phone] Prema Hitchcock-C Unavailable [phone] Chidi Puckett MD Harriet Lindsay Unavailable Unavailable Aisha Murdock PA-C Unavailable [phone] Lavern Pope MD Unavailable [phone] Lavern Pope MD Unavailable [phone] Elmer Paul MD Unavailable Elmer Paul MD Unavailable +[phone] Batool Torres DELIVERY RN Unavailable Marlene Benoit DELIVERY RN Unavailable [phone] Batool Torres DELIVERY RN Unavailable Reason for Visit * Reason Onset Date Comments Hematemesis 08/08/2014 Encounter Details Date Type Department Care Team (Late st Contact Info) Description 08/08/2014 [facility] Medical Advice [facility] [address] [place] [address] [place] [phone] Carey Vuong MD [address] [facility] [place] [id number] Hematemesis Social History Tobacco Use Types Packs/Day Years Used Date Smoking Tobacco: Former Cigarettes 0.5 10 Q uit: 08/01/2012 Smokeless Tobacco: Never Alcohol Use Standard Drinks/Week Comments Yes 0 (1 standard drink = 0.6 oz pur e alcohol) occ--2 per month Sex and Gender Information Value Date Recorded Sex Assigned at Female 12/12/2019 6:30 PM SOURCING MANAGER Gender Identity Female 12/12/2019 6:30 PM SOURCING MANAGER Sexual Orientation Straight 04/04/2021 12 :18 PM CDT Travel History Travel Start Travel End [place] 12/06/2023 12/12/2023 documented as of this encounter Plan of Treatment Upcoming Encounters Date Type Department Care Team (Late st Contact Info) Description 03/19/2024 3:30 PM CDT Office Visit [facility] Specialty [facility] [address] [facility] [address] [place] [phone] Elmer Paul MD [address] [facility] [address] [place] [id number] 04/16/2024 8:30 AM CDT Lab [facility] Heart [facility] [address] [facility] [address] [place] [phone] 04/20/2024 8:45 AM CDT Office Visit [facility] Heart [facility] [address] [facility] [address] [place] [phone] Lavern Pope MD [address] [facility] [address] [place] [address] documented as of this encounter Visit Diagnoses Not on filedocumented in this encounter Additional Health Concerns Infection Onset Date Last Indicated Resolved Time Rule Out COVID-19 01/11/2021 01/11/2021 01/11/2021 9:48 PM SOURCING MANAGER documented as of this encounter Care Teams Wrecker Operator Relationship Specialty Start Date End Date Carey Vuong MD [address] [place] [address] [place] [address] PCP - General 01/15/02 Carey Vuong MD [address] [place] [address] [place] [address] PCP - Assigned PCP 01/13/17 02/02/19 Carey Vuong MD [address] [place] [address] [place] [address] Assigned PCP 01/13/17 12/16/20 Mehreen Scott MD [address] [place] [phone] laboratory technologist 12/15/19 Lavern Gonzalez MD [address] [place] [address] 394 [place] [address] Assigned Surgical Provider 09/22/20 04/07/21 [place] [address] [place] [address] Assigned PCP 12/17/20 02/21/21 Carey Vuong MD [address] [facility] [place] [address] Assigned PCP 02/22/21 Lavern Gonzalez MD [address] [facility] 394 [place], [place] [address] Assigned Surgical Provider 04/29/21 11/03/21 Prema Hitchcock PA-C [address] [facility] [place] [address] Assigned Surgical Provider 11/04/21 Chidi Puckett MD [address] [place] [address] Assigned Sleep Provider 02/17/22 10/31/23 Harriet Lindsay Personal Advocate & Liaison (PAL) 06/17/22 Aisha Murdock PA-C [facility] [address] [facility] [place] [address] Assigned Neuroscience Provider 06/08/22 11/28/23 Lavern Pope MD [address] [place] [address] Cardiovascular Disease 11/11/22 Lavern Pope MD [address] [facility] [address] [place] [address] Assigned Heart and Vascular Provider 11/16/22 Elmer Paul MD [address] [place], [place] [address] Allergy & Immunology 02/17/23 Elmer Paul MD [address] [place], [place] [address] Assigned Allergy Provider 04/26/23 Batool Torres NP 1655 [place] [address] Nurse Practitioner Pulmonary Disease 08/11/23 [place] [address] [place] [address] Nurse Practitioner Nurse Practitioner 10/29/23 Batool Torres NP 1655 [place] [address] Assigned Pulmonology Provider 12/25/23 documented as of this encounter
--- OUTSIDE RECORDS SUMMARY | 2023-12-29 23:17 | XMS_ITS | Encounter Summary ---
Author Name Unknown Organization [facility] Address [address] [place] [address] Care Team Providers Care Mechanical Engineering Technician Name Role Phone Carey Vuong MD Primary Care Provider [phone] Carey Vuong MD Unavailable [phone] Carey Vuong MD Unavailable [phone] Mehreen Scott MD Unavailable [phone] Lavren Gonzalez MD Unavailable [phone] Terry Romano MD Unavailable Carey Vuong MD Unavailable +[phone] Lavern Gonzalez MD Unavailable [phone] Prema Hitchcock-C Unavailable [phone] Chidi Puckett MD Harriet Lindsay Unavailable Unavailable Aisha Murdock PA-C Unavailable +[phone] Lavern Pope MD Unavailable [phone] Lavern Pope MD Unavailable [phone] Elmer Paul MD Unavailable Elmer Paul MD Unavailable +[phone] Batool Torres PIECE WORK CHECKER Unavailable [phone] Marlene Benoit PIECE WORK CHECKER Unavailable Batool Torres PIECE WORK CHECKER Unavailable Encounter Details Date Type Department Care Team (Late st Contact Info) Description 07/31/2015 [facility] Medical Advice [facility] [address] [facility] [place] [phone] Liza Gordon LPN [...] Sex Assigned at Female 12/12/2019 6:30 PM ADVERTISING CLERK Gender Identity Female 12/12/2019 6:30 PM ADVERTISING CLERK Sexual Orientation Straight 04/04/2021 12 :18 PM CDT Travel History Travel Start Travel End [place] 12/06/2023 12/12/2023 documented as of this encounter Plan of Treatment Upcoming Encounters Date Type Department Care Team (Late st Contact Info) Description 03/19/2024 3:30 PM CDT Office Visit [facility] [address] [facility] [address] [place] [phone] Elmer Paul MD [address] [facility] [address] [place] [address] 04/16/2024 8:30 AM CDT Lab [facility] Heart [facility] [address] [facility] [address] [place] [phone] 04/20/2024 8:45 AM CDT Office Visit [facility] [address] [facility] [address] [place] [phone] Lavern Pope MD [address] [facility] 275 [place], [place] [address] documented as of this encounter Visit Diagnoses Not on filedocumented in this encounter Additional Health Concerns Infection Onset Date Last Indicated Resolved Time Rule Out COVID-19 01/11/2021 01/11/2021 01/11/2021 9:48 PM ADVERTISING CLERK Assessment Noted Time PHQ-9 Depression Total Score: 3 08/02/20 15 7:16 AM CDT documented as of this encounter Care Teams Mechanical Engineering Technician Relationship Specialty Start Date End Date Carey Vuong MD [address] [place] [address] [place] [address] PCP - General 01/15/02 Carey Vuong MD [address] [place] [address] [place] [address] PCP - Assigned PCP 01/13/17 02/02/19 Carey Vuong MD [address] [place] [address] [place] [address] Assigned PCP 01/13/17 12/16/20 Mehreen Scott MD [facility] [place] [phone] plugger worker 12/15/19 Lavern Gonzalez MD [address] [place] [address] 394 [place] [address] Assigned Surgical Provider 09/22/20 04/07/21 [place] [address] [place], [place] 2[address] Assigned PCP 12/17/20 02/21/21 Carey Vuong MD [address] [facility] [place] [address] Assigned PCP 02/22/21 Lavern Gonzalez MD 420 [facility] 394 [place], [place] [address] Assigned Surgical Provider 04/29/21 11/03/21 Prmea Hitchcock PA-C [address] [place] [address] Assigned Surgical Provider 11/04/21 Chidi Puckett MD [address] [place] [address] Assigned Sleep Provider 02/17/22 10/31/23 Harriet Lindsay Personal Advocate & Liaison (PAL) 06/17/22 Aisha Murdock PA-C [facility] [address] [place] [address] Assigned Neuroscience Provider 06/08/22 11/28/23 Lavern Pope MD [address] [place] [id number] Cardiovascular Disease 11/11/22 Lavern Pope MD [address] [place] [address] Assigned Heart and Vascular Provider 11/16/22 Elmer Paul MD [address] [place] [address] Allergy & Immunology 02/17/23 Elmer Paul MD [address] [place] [address] Assigned Allergy Provider 04/26/23 Batool Torres, ZENOBIA [address] [place] [address] Nurse Practitioner Pulmonary Disease 08/11/23 [place] [address] [place] [address] Nurse Practitioner Nurse Practitioner 10/29/23 Batool Torres NP [address] [place] [address] Assigned Pulmonology Provider 12/25/23 documented as of this encounter
--- OUTSIDE RECORDS SUMMARY | 2023-12-29 23:17 | XMS_ITS | Encounter Summary ---
Author Name Unknown Organization [place] Address [address] [place] [address] Care Team Providers Care Director Of Regional Sales Name Role Phone Carey Vuong MD Primary Care Provider [phone] Carey Vuong MD Unavailable [phone] Carey Vuong MD Unavailable [phone] Mehreen Scott MD Unavailable +[phone] Lavern Gonzalez MD Unavailable [phone] Terry Romano MD Unavailable Carey Vuong MD Unavailable +[phone] Lavern Gonzalez MD Unavailable [phone] Prema Hitchcock-C Unavailable +[phone] Chidi Puckett MD Harriet Lindsay Unavailable Unavailable Aisha Murdock PA-C Unavailable +[phone] Lavern Pope MD Unavailable +[phone] Lavern Pope MD Unavailable +[phone] Elmer Paul MD Unavailable Elmer Paul MD Unavailable [phone] Batool Torres PHOTO TECH Unavailable Cy, Molly Randee PHOTO TECH Unavailable Batool Torres PHOTO TECH Unavailable [phone] Encounter Details Date Type Department Care Team (Late st Contact Info) Description 11/10/2018 MyC Medical Advice [facility] [address] [facility] [address] [place] [phone] Carey Vuong MD [address] [facility] [place] [address] Social History Tobacco Use Types Packs/Day Years Used Date Smoking Tobacco: Former Cigarettes 0.5 10 Q uit: 08/01/2012 Smokeless Tobacco: Never Comments:smokes a single cig ar nightly Alcohol Use Standard Drinks/Week Comments Yes 5 (1 standard drink = 0.6 oz pur e alcohol) occ--2 per month Sex and Gender Information Value Date Recorded Sex Assigned at Female 12/12/2019 6:30 PM STATISTICAL DEVELOPER Gender Identity Female 12/12/2019 6:30 PM STATISTICAL DEVELOPER Sexual Orientation Straight 04/04/2021 12 :18 PM CDT Travel History Travel Start Travel End [place] 12/06/2023 12/12/2023 documented as of this encounter Plan of Treatment Upcoming Encounters Date Type Department Care Team (Late st Contact Info) Description 03/19/2024 3:30 PM CDT [facility] [address] [facility] [address] [place] [phone] Elmer Paul MD [address] [facility] [address] [place] [id number] 04/16/2024 8:30 AM CDT Lab [facility] [address] [facility] [address] [place] [phone] 04/20/2024 8:45 AM CDT [facility] [address] [facility] [address] [place] [phone] Lavern Pope MD [address] [facility] [address] [place] [address] documented as of this encounter Visit Diagnoses Not on filedocumented in this encounter Additional Health Concerns Infection Onset Date Last Indicated Resolved Time Rule Out COVID-19 01/11/2021 01/11/2021 01/11/2021 9:48 PM STATISTICAL DEVELOPER Assessment Noted Time PHQ-9 Depression Total Score: 4 05/07/20 18 7:13 AM CDT documented as of this encounter Care Teams Director Of Regional Sales Relationship Specialty Start Date End Date Carey Vuong MD [address] [place] [address] [place] [address] PCP - General 01/15/02 Carey Vuong MD [address] [place] [address] [place] [address] PCP - Assigned PCP 01/13/17 02/02/19 Carey Vuong MD [address] [place] [address] [place] [address] Assigned PCP 01/13/17 12/16/20 Mehreen Scott MD [address] [facility] [address] [place] [phone] personal injury litigation paralegal 12/15/19 Lavern Gonzalez MD [address] [facility] [address] [place], [place] [address] Assigned Surgical Provider 09/22/20 04/07/21 [place] [address] [place] [address] Assigned PCP 12/17/20 02/21/21 Carey Vuong MD [address] [facility] [address] Assigned PCP 02/22/21 Lavern Gonzalez MD [address] [facility] [address] [place], [place] [address] Assigned Surgical Provider 04/29/21 11/03/21 Prema Hitchcock PA-C [address] [place] [address] Assigned Surgical Provider 11/04/21 Chidi Puckett MD [address] [place], [place] [address] Assigned Sleep Provider 02/17/22 10/31/23 Harriet Lindsay Personal Advocate & Liaison (PAL) 06/17/22 Aisha Murdock PA-C [facility] [address] [place] [address] Assigned Neuroscience Provider 06/08/22 11/28/23 Lavern Pope MD [address] [place] [address] Cardiovascular Disease 11/11/22 Lavern Pope MD [address] [place] [address] Assigned Heart and Vascular Provider 11/16/22 Elmer Paul MD [address], [address] [place] [address] Allergy & Immunology 02/17/23 Elmer Paul MD [address], [address] [place] [address] Assigned Allergy Provider 04/26/23 Batool Torres NP 1655 [place] [address] Nurse Practitioner Pulmonary Disease 08/11/23 [place] [address] [place] [address] Nurse Practitioner Nurse Practitioner 10/29/23 Batool Torres NP [address] [place] [address] Assigned Pulmonology Provider 12/25/23 documented as of this encounter
--- OUTSIDE RECORDS SUMMARY | 2023-12-29 23:17 | XMS_ITS | Encounter Summary ---
Author Name Unknown Organization [place] Address [address] [place] [address] Care Team Providers Care Glaze Handler Name Role Phone Carey Vuong MD Primary Care Provider [phone] Carey Vuong MD Unavailable [phone] Carey Vuong MD Unavailable [phone] Mehreen Scott MD Unavailable [phone] Lavern Gonzalez MD Unavailable [phone] Terry Romano MD Unavailable Carey Vuong MD Unavailable +[phone] Lavern Gonzalez MD Unavailable [phone] Prema Hitchcock-C Unavailable [phone] Chidi Puckett MD Harriet Lindsay Unavailable Unavailable Aisha Murdock PA-C Unavailable +[phone] Lavern Pope MD Unavailable +[phone] Lavern Pope MD Unavailable +[phone] Elmer Paul MD Unavailable +[phone] Elmer Paul MD Unavailable [phone] Batool Torres MOUNTAIN BIKE GUIDE Unavailable Marlene Benoit MOUNTAIN BIKE GUIDE Unavailable Batool Torres MOUNTAIN BIKE GUIDE Unavailable Reason for Visit * Reason Onset Date Comments Refill Request 07/30/2015 CITALOPRAM 20MG Encounter Details Date Type Department Care Team (Late st Contact Info) Description 07/30/2015 Refill [facility] [address] [facility] [place] [phone] Carey Vuong MD [facility] [facility] [place] [address] Refill Request (CITALOPRAM 20MG) Social History Tobacco Use Types Packs/Day Years Used Date Smoking Tobacco: Every Day Cigarettes 0.5 10 Last attempted to quit: 08/01/2012 Smokeless Tobacco: Never Comments:smokes a single cig ar nightly Alcohol Use Standard Drinks/Week Comments Yes 5 (1 standard drink = 0.6 oz pur e alcohol) occ--2 per month Sex and Gender Information Value Date Recorded Sex Assigned at Female 12/12/2019 6:30 PM MOPPER Gender Identity Female 12/12/2019 6:30 PM MOPPER Sexual Orientation Straight 04/04/2021 12 :18 PM CDT Travel History Travel Start Travel End [place] 12/06/2023 12/12/2023 documented as of this encounter Miscellaneous Notes * Telephone Encounter - Liza Gordon LPN - 07/31/2015 12:52 PM CDT My chart PHQ 9 sent and informed patient to either schedule appt or to let us know on mychart how she is doing on the citalopram. Liza Gordon LPN * Telephone Encounter - Jany Eubanks RN - 07/31/2015 11:08 AM CDT Medication is being filled for 1 time refill only due to: pt is due for a phq9 and also is to either schedule appt or let her pcp know how she is doing on her citalopram via mychart Will forward to the station to get an updated phq9 and then either schedule an appt or send a mychart to her pcp on how she is doing on her citalopram * Telephone Encounter - Emilie Mcdonald - 07/30/2015 1:43 PM CDT CITALOPRAM 20MG Last Written Prescription Date: 12/05/2014 Last Fill Quantity: 90, # refills: 1 Last Office Visit with [facility] primary care provider: 01/30/2015 Last PHQ-9 score on record= PHQ-9 SCORE 12/05/2014 Total Score 1 Total Score MyChart - documented in this encounter Plan of Treatment Upcoming Encounters Date Type Department Care Team (Late st Contact Info) Description 03/19/2024 3:30 PM CDT Office Visit [facility] [place] [address] [facility] [address] [place] [phone] Elmer Paul MD [address] [facility] [address] [place] [address] 04/16/2024 8:30 AM CDT Lab [facility] [address] [facility] [address] [place] [phone] 04/20/2024 8:45 AM CDT Office Visit [facility] [address] [place] [phone] Lavern Pope MD [address] [facility] [address] [place] [address] documented as of this encounter Visit Diagnoses Diagnosis Moderate major depression (H)- Primary Major depressive disorder, single episode, moderate documented in this encounter Additional Health Concerns Infection Onset Date Last Indicated Resolved Time Rule Out COVID-19 01/11/2021 01/11/2021 01/11/2021 9:48 PM MOPPER documented as of this encounter Care Teams Glaze Handler Relationship Specialty Start Date End Date Carey Vuong MD [address] [place] [address] [place] [address] PCP - General 01/15/02 Carey Vuong MD [address] [place] [address] [place] [address] PCP - Assigned PCP 01/13/17 02/02/19 Carey Vuong MD [address] [place] [address] [place] [address] Assigned PCP 01/13/17 12/16/20 Mehreen Scott MD [facility] [phone] steel fitter 12/15/19 Lavern Gonzalez MD [address] [place] [address] 394 [place], [place] [address] Assigned Surgical Provider 09/22/20 04/07/21 [place] [address] [place] [address] Assigned PCP 12/17/20 02/21/21 Carey Vuong MD [address] [place] [address] [place] [address] Assigned PCP 02/22/21 Lavern Gonzalez MD [address] [facility] [address] [place], [place] [address] Assigned Surgical Provider 04/29/21 11/03/21 Prema Hitchcock PA-C [address] [place], [place] [address] Assigned Surgical Provider 11/04/21 Chidi Puckett MD [address] [place], [place] [address] Assigned Sleep Provider 02/17/22 10/31/23 Harriet Lindsay Personal Advocate & Liaison (PAL) 06/17/22 Aisha Murdock PA-C [facility] [address] [place] [address] Assigned Neuroscience Provider 06/08/22 11/28/23 Lavern Pope MD [address] [facility] [address] [place], [place] [address] Cardiovascular Disease 11/11/22 Lavern Pope MD [address] [facility] [address] [place], [place] [address] Assigned Heart and Vascular Provider 11/16/22 Elmer Paul MD [address] [place] [address] Allergy & Immunology 02/17/23 Elmer Paul MD [address] , [facility] 200 [place] [address] Assigned Allergy Provider 04/26/23 Batool Torres, ZENOBIA [address] [facility] [place] [address] Nurse Practitioner Pulmonary Disease 08/11/23 [place] [address] [place] [address] Nurse Practitioner Nurse Practitioner 10/29/23 Batool Torres, ZENOBIA [address] [facility] [place] [address] Assigned Pulmonology Provider 12/25/23 documented as of this encounter
--- OUTSIDE RECORDS SUMMARY | 2023-12-29 23:17 | XMS_ITS | Encounter Summary ---
Author Name Unknown Organization [place] Address [address] [place] [address] Care Team Providers Care Supervisor Quality Control Name Role Phone Carey Vuong MD Primary Care Provider [phone] Carey Vuong MD Unavailable +[phone] Carey Vuong MD Unavailable [phone] Mehreen Scott MD Unavailable [phone] Lavern Gonzalez MD Unavailable [phone] Terry Romano MD Unavailable Carey Vuong MD Unavailable +[phone] Lavern Gonzalez MD Unavailable [phone] Prema Hitchcock-C Unavailable +[phone] Chidi Puckett MD Harriet Lindsay Unavailable Unavailable Aisha Murdock PA-C Unavailable +[phone] Lavern Pope MD Unavailable +[phone] Lavern Pope MD Unavailable [phone] Elmer Paul MD Unavailable +[phone] Elmer Paul MD Unavailable [phone] Batool Torres LOGGING SPECIALIST Unavailable [phone] Marlene Benoit LOGGING SPECIALIST Unavailable [phone] Batool Torres LOGGING SPECIALIST Unavailable Encounter Details Date Type Department Care Team (Late st Contact Info) Description 12/28/2015 [facility] [address] [place] [phone] Paty Nielsen RN Social History Tobacco Use Types Packs/Day Years Used Date Smoking Tobacco: Former Cigarettes 0.5 10 Q uit: 08/01/2012 Smokeless Tobacco: Never Comments:smokes a single cig ar nightly Alcohol Use Standard Drinks/Week Comments Yes 5 (1 standard drink = 0.6 oz pur e alcohol) occ--2 per month Sex and Gender Information Value Date Recorded Sex Assigned at Female 12/12/2019 6:30 PM LICENSED PROSTHETIST Gender Identity Female 12/12/2019 6:30 PM LICENSED PROSTHETIST Sexual Orientation Straight 04/04/2021 12 :18 PM CDT Travel History Travel Start Travel End [place] 12/06/2023 12/12/2023 documented as of this encounter Miscellaneous Notes * Telephone Encounter - Paty Nielsen RN - 12/28/2015 2:06 PM LICENSED PROSTHETIST Patient bipmoik-kgm-2, score 0 Paty Nielsen RN Message handled by Nurse Triage. NSED PROSTHETIST documented in this encounter Plan of Treatment Upcoming Encounters Date Type Department Care Team (Late st Contact Info) Description 03/19/2024 3:30 PM CDT Office Visit [address] [place] [phone] Elmer Paul MD [address] [facility] [address] [place] [address] 04/16/2024 8:30 AM CDT Lab [facility] [address] [facility] [address] [place] [phone] 04/20/2024 8:45 AM CDT Office Visit [facility] [address] [facility] [address] [place] [phone] Lavern Pope MD [address] [facility] [address] [place] [address] documented as of this encounter Visit Diagnoses Not on filedocumented in this encounter Additional Health Concerns Infection Onset Date Last Indicated Resolved Time Rule Out COVID-19 01/11/2021 01/11/2021 01/11/2021 9:48 PM LICENSED PROSTHETIST Assessment Noted Time PHQ-9 Depression Total Score: 0 12/29/19 16 7:51 AM LICENSED PROSTHETIST documented as of this encounter Care Teams Supervisor Quality Control Relationship Specialty Start Date End Date Carey Vuong MD [address] [place] [address] [place] [address] PCP - General 01/15/02 Carey Vuong MD [address] [place] [address] [place] [address] PCP - Assigned PCP 01/13/17 02/02/19 Carey Vuong MD [address] [place] [address] [place] [address] Assigned PCP 01/13/17 12/16/20 Mehreen Scott MD [address] [place] [phone] gas plant dispatcher 12/15/19 Lavern Gonzalez MD [address] [facility] 394 [place] [address] Assigned Surgical Provider 09/22/20 04/07/21 [place] [address] [address] Assigned PCP 12/17/20 02/21/21 Carey Vuong MD [address] [facility] [place] [address] Assigned PCP 02/22/21 Lavern Gonzalez MD [address] [facility] 394 [place] [address] Assigned Surgical Provider 04/29/21 11/03/21 Prema Hitchcock PA-C [address] [place] [address] Assigned Surgical Provider 11/04/21 Chidi Puckett MD [address] [facility] 106 [place] [address] Assigned Sleep Provider 02/17/22 10/31/23 Harriet Lindsay Personal Advocate & Liaison (PAL) 06/17/22 Aisha Murdock PA-C [facility] [address] [place] [address] Assigned Neuroscience Provider 06/08/22 11/28/23 Lavern Pope MD [address] [facility] [address] [place] [address] Cardiovascular Disease 11/11/22 Lavern Pope MD [address] [facility] [address] [place] [address] Assigned Heart and Vascular Provider 11/16/22 Elmer Paul MD [address] [place] [address] Allergy & Immunology 02/17/23 Elmer Paul MD [address] [place] [address] Assigned Allergy Provider 04/26/23 Batool Torres NP 1655 [place] [address] Nurse Practitioner Pulmonary Disease 08/11/23 [place] [address] [place] [address] Nurse Practitioner Nurse Practitioner 10/29/23 Batool Torres NP [address] [place] [address] Assigned Pulmonology Provider 12/25/23 documented as of this encounter
--- OUTSIDE RECORDS SUMMARY | 2023-12-29 23:17 | XMS_ITS | Encounter Summary ---
Author Name Unknown Organization [place] Address [address] [place] [address] Care Team Providers Care President Financial Institution Name Role Phone Carey Vuong MD Primary Care Provider [phone] Carey Vuong MD Unavailable [phone] Carey Vuong MD Unavailable +[phone] Mehreen Scott MD Unavailable [phone] Lavern Gonzalez MD Unavailable [phone] Terry Romano MD Unavailable Carey Vuong MD Unavailable +[phone] Lavern Gonzalez MD Unavailable [phone] Prema Hitchcock-C Unavailable +[phone] Chidi Puckett MD Harriet Lindsay Unavailable Unavailable Aisha Murdock PA-C Unavailable +[phone] Lavern Pope MD Unavailable [phone] Lavern Pope MD Unavailable +[phone] Elmer Paul MD Unavailable +[phone] Elmer Paul MD Unavailable [phone] Batool Torres REGIONAL FORESTER Unavailable [phone] Marlene Benoit REGIONAL FORESTER Unavailable Batool Torres REGIONAL FORESTER Unavailable Reason for Visit * Reason Onset Date Comments Formulary Issue 08/18/2014 Encounter Details Date Type Department Care Team (Late st Contact Info) Description 08/18/2014 Telephone [facility] [address] [facility] [place] [phone] Carey Vuong MD [address] [facility] [place] [address] Formulary Issue Social History Tobacco Use Types Packs/Day Years Used Date Smoking Tobacco: Former Cigarettes 0.5 10 Q uit: 08/01/2012 Smokeless Tobacco: Never Alcohol Use Standard Drinks/Week Comments Yes 0 (1 standard drink = 0.6 oz pur e alcohol) occ--2 per month Sex and Gender Information Value Date Recorded Sex Assigned at Female 12/12/2019 6:30 PM PHOTOGRAPHIC PLATE MAKER Gender Identity Female 12/12/2019 6:30 PM PHOTOGRAPHIC PLATE MAKER Sexual Orientation Straight 04/04/2021 12 :18 PM CDT Travel History Travel Start Travel End [place] 12/06/2023 12/12/2023 documented as of this encounter Miscellaneous Notes * Telephone Encounter - Brooke Gr CMA - 08/18/2014 10:18 AM CDT PA submitted to insurance [employer] for Nexium today documented in this encounter Plan of Treatment Upcoming Encounters Date Type Department Care Team (Late st Contact Info) Description 03/19/2024 3:30 PM CDT Office Visit [facility] [address] [facility] [address] [place] [address] Elmer Paul MD [address] [facility] [address] [place] [address] 04/16/2024 8:30 AM CDT Lab [facility] [address] [facility] [address] [place] [phone] 04/20/2024 8:45 AM CDT Office Visit [facility] [address] [facility] [address] [place] [phone] Lavern Pope MD [address] [facility] [address] [place] [address] documented as of this encounter Visit Diagnoses Not on filedocumented in this encounter Additional Health Concerns Infection Onset Date Last Indicated Resolved Time Rule Out COVID-19 01/11/2021 01/11/2021 01/11/2021 9:48 PM PHOTOGRAPHIC PLATE MAKER documented as of this encounter Care Teams President Financial Institution Relationship Specialty Start Date End Date Carey Vuong MD [address] [place] [address] [place] [address] PCP - General 01/15/02 Carey Vuong MD [address] [place] [address] [place] [address] PCP - Assigned PCP 01/13/17 02/02/19 Carey Vuong MD [address] [place] [address] [place] [address] Assigned PCP 01/13/17 12/16/20 Mehreen Scott MD [address] [place] [phone] vehicle maintenance supervisor 12/15/19 Lavern Gonzalez MD [address] [facility] 394 [place] [address] Assigned Surgical Provider 09/22/20 04/07/21 [place] [address] [place] [address] Assigned PCP 12/17/20 02/21/21 Carey Vuong MD [address] [facility] [place] [address] Assigned PCP 02/22/21 Lavern Gonzalez MD [address] [facility] 394 [place] [address] Assigned Surgical Provider 04/29/21 11/03/21 Prema Hitchcock PA-C [address] [place] [id number] Assigned Surgical Provider 11/04/21 Chidi Puckett MD [address] [place] [address] Assigned Sleep Provider 02/17/22 10/31/23 aHrriet iLndsay Personal Advocate & Liaison (PAL) 06/17/22 Asiha Murdock PA-C [facility] [address] [place] [id number] Assigned Neuroscience Provider 06/08/22 11/28/23 Lavern Pope MD [address] [facility] [address] [place] [address] Cardiovascular Disease 11/11/22 Lavern Pope MD [address] [facility] [address] [place] [address] Assigned Heart and Vascular Provider 11/16/22 Elmer Paul MD [address] [place] [address] Allergy & Immunology 02/17/23 Elmer Paul MD [address] [place] [address] Assigned Allergy Provider 04/26/23 Batool Torres NP [address] [place] [address] Nurse Practitioner Pulmonary Disease 08/11/23 [place] [address] [place] [address] Nurse Practitioner Nurse Practitioner 10/29/23 Batool Torres NP [address] [place] [address] Assigned Pulmonology Provider 12/25/23 documented as of this encounter
--- OUTSIDE RECORDS SUMMARY | 2023-12-29 23:17 | XMS_ITS | Encounter Summary ---
Author Name Unknown Organization [facility] Address [address] [place] [address] Care Team Providers Care Landscaper Name Role Phone Carey Vuong MD Primary Care Provider [phone] Carey Vuong MD Unavailable +[phone] Carey Vuong MD Unavailable [phone] Mehreen Scott MD Unavailable +[phone] Lavern Gonzalez MD Unavailable [phone] Terry Romano MD Unavailable Carey Vuong MD Unavailable +[phone] Lavern Gonzalez MD Unavailable [phone] Prema Hitchcock-C Unavailable +[phone] Chidi Puckett MD Harriet Lindsay Unavailable Unavailable Aisha Murdock PA-C Unavailable +[phone] Lavern Pope MD Unavailable [phone] Lavern Pope MD Unavailable +[phone] Elmer Paul MD Unavailable Elmer Paul MD Unavailable +[phone] Batool Torres LADDER OPERATOR Unavailable [phone] Marlene Benoit LADDER OPERATOR Unavailable [phone] Batool Torres LADDER OPERATOR Unavailable [phone] Reason for Visit * Reason Onset Date Comments Cough 06/29/2018 Encounter Details Date Type Department Care Team (Late st Contact Info) Description 06/29/2018 MyC Medical Advice [facility] [address] [facility] [address] [place] [address] Carey Vuong MD [address] [facility] [place] [id number] Cough Social History Tobacco Use Types Packs/Day Years Used Date Smoking Tobacco: Former Cigarettes 0.5 10 Q uit: 08/01/2012 Smokeless Tobacco: Never Comments:smokes a single cig ar nightly Alcohol Use Standard Drinks/Week Comments Yes 5 (1 standard drink = 0.6 oz pur e alcohol) occ--2 per month Sex and Gender Information Value Date Recorded Sex Assigned at Female 12/12/2019 6:30 PM FURNITURE STAINER Gender Identity Female 12/12/2019 6:30 PM FURNITURE STAINER Sexual Orientation Straight 04/04/2021 12 :18 PM CDT Travel History Travel Start Travel End [place] 12/06/2023 12/12/2023 documented as of this encounter Plan of Treatment Upcoming Encounters Date Type Department Care Team (Late st Contact Info) Description 03/19/2024 3:30 PM CDT Office Visit [facility] Specialty [facility] [address] [place] [address] [address] [place] [address] Elmer Paul MD [address] [facility] [address] [place] [phone] 04/16/2024 8:30 AM CDT Lab [facility] Heart [facility] [id number] [place] [address] [address] [place] [phone] 04/20/2024 8:45 AM CDT Office Visit [facility] Heart [facility] [address] [facility] [address] [place] [phone] Lavern Pope MD [address] [facility] [address] [place] [address] documented as of this encounter Visit Diagnoses Not on filedocumented in this encounter Additional Health Concerns Infection Onset Date Last Indicated Resolved Time Rule Out COVID-19 01/11/2021 01/11/2021 01/11/2021 9:48 PM FURNITURE STAINER Assessment Noted Time PHQ-9 Depression Total Score: 4 05/07/20 18 7:13 AM CDT documented as of this encounter Care Teams Landscaper Relationship Specialty Start Date End Date Carey Vuong MD [address] [place] [address] [place] [address] PCP - General 01/15/02 Carey Vuong MD [address] [place] [address] [place] [address] PCP - Assigned PCP 01/13/17 02/02/19 Carey Vuong MD [address] [place] [address] [place] [address] Assigned PCP 01/13/17 12/16/20 Mehreen Scott MD [address] [place] [phone] sales service promoter 12/15/19 Lavern Gonzalez MD 420 [facility] 394 [place], [place] [address] Assigned Surgical Provider 09/22/20 04/07/21 [place] [address] [place] [address] Assigned PCP 12/17/20 02/21/21 Carey Vuong MD [address] [facility] [place] [address] Assigned PCP 02/22/21 Lavern Gonzalez MD 420 [facility] 394 [place], [place] [address] Assigned Surgical Provider 04/29/21 11/03/21 Prema Hitchcock PA-C [address] [facility] [place] [address] Assigned Surgical Provider 11/04/21 Chidi Puckett MD [address] [place], [place] [address] Assigned Sleep Provider 02/17/22 10/31/23 Harriet Lindsay Personal Advocate & Liaison (PAL) 06/17/22 Aisha Murdock PA-C [facility] [address] [facility] [place] [address] Assigned Neuroscience Provider 06/08/22 11/28/23 Lavern Pope MD [address] [facility] [address] [facility] 275 [place] [address] Cardiovascular Disease 11/11/22 Lavern Pope MD [address] [place] [address] Assigned Heart and Vascular Provider 11/16/22 Elmer Paul MD [address] [place] [address] Allergy & Immunology 02/17/23 Elmer Paul MD [address] [place] [address] Assigned Allergy Provider 04/26/23 Batool Torres NP [address] [place] [address] Nurse Practitioner Pulmonary Disease 08/11/23 [place] [address] [place] [address] Nurse Practitioner Nurse Practitioner 10/29/23 Batool Torres NP [address] [place] [address] Assigned Pulmonology Provider 12/25/23 documented as of this encounter
--- OUTSIDE RECORDS SUMMARY | 2023-12-29 23:18 | XMS_ITS | Encounter Summary ---
Author Name Unknown Organization [facility] Address [address] [place] [address] Care Team Providers Care Supervisor Photocomposition Name Role Phone Carey Vuong MD Primary Care Provider [phone] Carey Vuong MD Unavailable [phone] Carey Vuong MD Unavailable [phone] Mehreen Scott MD Unavailable [phone] Lavern Gonzalez MD Unavailable [phone] Terry Romano MD Unavailable Carey Vuong MD Unavailable +[phone] Lavern Gonzalez MD Unavailable [phone] Prema Hitchcock-C Unavailable [phone] Chidi Puckett MD Harriet Lindsay Unavailable Unavailable Aisha Murdock PA-C Unavailable +[phone] Lavern Pope MD Unavailable [phone] Lavern Pope MD Unavailable [phone] Elmer Paul MD Unavailable Elmer Paul MD Unavailable [phone] Batool Torres LIBRARY SERVICES COORDINATOR Unavailable Marlene Benoit LIBRARY SERVICES COORDINATOR Unavailable [phone] Batool Torres LIBRARY SERVICES COORDINATOR Unavailable Encounter Details Date Type Department Care Team (Late st Contact Info) Description 08/13/2011 MyC Medical Advice [address] [place] [phone] [facility] Social History Tobacco Use Types Packs/Day Years Used Date Smoking Tobacco: Every Day Cigarettes 0.5 10 Smokeless Tobacco: Never Alcohol Use Standard Drinks/Week Comments Yes 0 (1 standard drink = 0.6 oz pur e alcohol) occ--2 per month Sex and Gender Information Value Date Recorded Sex Assigned at Female 12/12/2019 6:30 PM RAILROAD CAR CLEANING SUPERVISOR Gender Identity Female 12/12/2019 6:30 PM RAILROAD CAR CLEANING SUPERVISOR Sexual Orientation Straight 04/04/2021 12 :18 PM CDT Travel History Travel Start Travel End [place] 12/06/2023 12/12/2023 documented as of this encounter Plan of Treatment Upcoming Encounters Date Type Department Care Team (Late st Contact Info) Description 03/19/2024 3:30 PM CDT Office Visit [facility] Specialty [facility] 65[address] [facility] 200 [place] [phone] Elmer Paul MD 3106 [facility] 200 [place] [address] 04/16/2024 8:30 AM CDT Lab [facility] Heart [facility] [address] [facility] [address] [place] [phone] 04/20/2024 8:45 AM CDT Office Visit [facility] Heart [facility] [address] [facility] [address] [place] [phone] Lavern Pope MD [address] [facility] [address] [place] [address] documented as of this encounter Visit Diagnoses Not on filedocumented in this encounter Additional Health Concerns Infection Onset Date Last Indicated Resolved Time Rule Out COVID-19 01/11/2021 01/11/2021 01/11/2021 9:48 PM RAILROAD CAR CLEANING SUPERVISOR documented as of this encounter Care Teams Supervisor Photocomposition Relationship Specialty Start Date End Date Carey Vuong MD [address] [place] [address] [place] [address] PCP - General 01/15/02 Carey Vuong MD [address] [place] [address] [place] [address] PCP - Assigned PCP 01/13/17 02/02/19 Carey Vuong MD [address] [place] [address] [place] [address] Assigned PCP 01/13/17 12/16/20 Mehreen cSott MD [address] [place] [phone] vehicle washer 12/15/19 Lavern Gonzalez MD [address] [place] [address] 615535 Assigned Surgical Provider 09/22/20 04/07/21 [place] [address] [place] [address] Assigned PCP 12/17/20 02/21/21 Carey Vuong MD [address] [place] [address] [place] [address] Assigned PCP 02/22/21 Lavern Gonzalez MD [address] [facility] 394 [place] [address] Assigned Surgical Provider 04/29/21 11/03/21 Prema Hitchcock PA-C [address] [place] [address] Assigned Surgical Provider 11/04/21 Chidi Puckett MD [address] [place], [place] [address] Assigned Sleep Provider 02/17/22 10/31/23 Harriet Lindsay Personal Advocate & Liaison (PAL) 06/17/22 Aisha Murdock PA-C [facility] [address] [place] [address] Assigned Neuroscience Provider 06/08/22 11/28/23 Lavern Pope MD [address] [place] [address] Cardiovascular Disease 11/11/22 Lavern Pope MD [address] [place] [address] Assigned Heart and Vascular Provider 11/16/22 Elmer Paul MD [address] [place] [address] Allergy & Immunology 02/17/23 Elmer Paul MD [address] , [facility] 200 [place], [place] [address] Assigned Allergy Provider 04/26/23 Batool Torres, LIBRARY SERVICES COORDINATOR [address] [facility] [place] [address] Nurse Practitioner Pulmonary Disease 08/11/23 [place] [address] [place] [address] Nurse Practitioner Nurse Practitioner 10/29/23 Batool Torres, LIBRARY SERVICES COORDINATOR [address] [facility] [place] [address] Assigned Pulmonology Provider 12/25/23 documented as of this encounter
--- OUTSIDE RECORDS SUMMARY | 2023-12-29 23:18 | XMS_ITS | Encounter Summary ---
Author Name Unknown Organization [facility] Address [address] [place] [address] Care Team Providers Care Cytopathologist Name Role Phone Carey Vuong MD Primary Care Provider [phone] Carey Vuong MD Unavailable [phone] Carey Vuong MD Unavailable [phone] Mehreen Scott MD Unavailable [phone] Lavern Gonzalez MD Unavailable [phone] Terry Romano MD Unavailable Carey Vuong MD Unavailable [phone] Lavern Gonzalez MD Unavailable [phone] Prema Hitchcock-C Unavailable [phone] Chidi Puckett MD Harriet Lindsay Unavailable Unavailable Aisha Murdock PA-C Unavailable +[phone] Lavern Pope MD Unavailable [phone] Lvaern Pope MD Unavailable [phone] Elmer Paul MD Unavailable Elmer Paul MD Unavailable [phone] Batool Torres MUSEUM EXHIBIT TECHNICIAN Unavailable Marlene Benoit MUSEUM EXHIBIT TECHNICIAN Unavailable [phone] Batool Torres MUSEUM EXHIBIT TECHNICIAN Unavailable [phone] Encounter Details Date Type Department Care Team (Late st Contact Info) Description 01/28/2012 [facility] Medical Advice [address] [place] [phone] [facility] Social History Tobacco Use Types Packs/Day Years Used Date Smoking Tobacco: Former Cigarettes 0.5 10 Q uit: 10/07/2011 Smokeless Tobacco: Never Alcohol Use Standard Drinks/Week Comments Yes 0 (1 standard drink = 0.6 oz pur e alcohol) occ--2 per month Sex and Gender Information Value Date Recorded Sex Assigned at Female 12/12/2019 6:30 PM TAX SERVICES PROFESSIONAL Gender Identity Female 12/12/2019 6:30 PM TAX SERVICES PROFESSIONAL Sexual Orientation Straight 04/04/2021 12 :18 PM CDT Travel History Travel Start Travel End [place] 12/06/2023 12/12/2023 documented as of this encounter Plan of Treatment Upcoming Encounters Date Type Department Care Team (Late st Contact Info) Description 03/19/2024 3:30 PM CDT Office Visit [facility] Specialty [facility] [address] [facility] 200 [place] [phone] Elmer Paul MD [address] [place] [address] 04/16/2024 8:30 AM CDT Lab [facility] Heart [facility] [address] [facility] [address] [place] [phone] 04/20/2024 8:45 AM CDT Office Visit [facility] Heart [facility] [address] [facility] [address] [place] [phone] Lavern Pope MD [address] [facility] 275 [place] [address] documented as of this encounter Visit Diagnoses Not on filedocumented in this encounter Additional Health Concerns Infection Onset Date Last Indicated Resolved Time Rule Out COVID-19 01/11/2021 01/11/2021 01/11/2021 9:48 PM TAX SERVICES PROFESSIONAL documented as of this encounter Care Teams Cytopathologist Relationship Specialty Start Date End Date Carey Vuong MD [address] [place] [address] [place] [address] PCP - General 01/15/02 Carey Vuong MD [address] [place] [address] [place] [address] PCP - Assigned PCP 01/13/17 02/02/19 Carey Vuong MD [address] [place] [address] [place] [address] Assigned PCP 01/13/17 12/16/20 Mehreen Scott MD [address] [place] [address] coin machine operator 12/15/19 Lavern Gonzalez MD [address] [place] [address] 394 [place] [address] Assigned Surgical Provider 09/22/20 04/07/21 [place] [address] [place] [address] Assigned PCP 12/17/20 02/21/21 Carey Vuong MD [address] [facility] [place] [address] Assigned PCP 02/22/21 Lavern Gonzalez MD 420 [facility] 394 [place] [address] Assigned Surgical Provider 04/29/21 11/03/21 Prema Hitchcock PA-C [address] [place] [address] Assigned Surgical Provider 11/04/21 Chidi Puckett MD [address] [place], [place] [address] Assigned Sleep Provider 02/17/22 10/31/23 Harriet Lindsay Personal Advocate & Liaison (PAL) 06/17/22 Aisha Murdock PA-C [facility] [address] [place] [address] Assigned Neuroscience Provider 06/08/22 11/28/23 Lavern Pope MD [address] [place] [address] Cardiovascular Disease 11/11/22 Lavern Pope MD [address] [place] [address] Assigned Heart and Vascular Provider 11/16/22 Elmer Paul MD [address] [place] [address] Allergy & Immunology 02/17/23 Elmer Paul MD [address] , [facility] 200 [place] [address] Assigned Allergy Provider 04/26/23 Batool Torres, MUSEUM EXHIBIT TECHNICIAN 1655 [facility] [place] [address] Nurse Practitioner Pulmonary Disease 08/11/23 [place] [address] [place] [address] Nurse Practitioner Nurse Practitioner 10/29/23 Batool Torres, MUSEUM EXHIBIT TECHNICIAN [address] [facility] [place] [address] Assigned Pulmonology Provider 12/25/23 documented as of this encounter
--- OUTSIDE RECORDS SUMMARY | 2023-12-29 23:18 | XMS_ITS | Encounter Summary ---
Author Name Unknown Organization [facility] Address [address] [place] [address] Care Team Providers Care Tier Truck Driver Name Role Phone Carey Vuong MD Primary Care Provider [phone] Carey Vuong MD Unavailable [phone] Carey Vuong MD Unavailable [phone] Mehreen Scott MD Unavailable [phone] Lavern Gonzalez MD Unavailable [phone] Terry Romano MD Unavailable Carey Vuong MD Unavailable +[phone] Lavern Gonzalez MD Unavailable [phone] Prema Hitchcock-C Unavailable [phone] Chidi Puckett MD Harriet Lindsay Unavailable Unavailable Aisha Murdock PA-C Unavailable +[phone] Lavern Pope MD Unavailable [phone] Lavern Pope MD Unavailable [phone] Elmer Paul MD Unavailable [phone] Elmer Paul MD Unavailable [phone] Batool Torres LABELING MACHINE OPERATOR Unavailable [phone] Marlene Benoit LABELING MACHINE OPERATOR Unavailable Batool Torres LABELING MACHINE OPERATOR Unavailable [phone] Encounter Details Date Type Department Care Team (Late st Contact Info) Description 12/12/2011 [facility] Medical [address] [place] [phone] Carey Vuong MD [address] [facility] [place] [address] Jaw pain (Primary Dx) Social History Tobacco Use Types Packs/Day Years Used Date Smoking Tobacco: Every Day Cigarettes 0.5 10 Smokeless Tobacco: Never Alcohol Use Standard Drinks/Week Comments Yes 0 (1 standard drink = 0.6 oz pur e alcohol) occ--2 per month Sex and Gender Information Value Date Recorded Sex Assigned at Female 12/12/2019 6:30 PM DIRECTOR SCRIPT Gender Identity Female 12/12/2019 6:30 PM DIRECTOR SCRIPT Sexual Orientation Straight 04/04/2021 12 :18 PM CDT Travel History Travel Start Travel End [place] 12/06/2023 12/12/2023 documented as of this encounter Miscellaneous Notes * Telephone Encounter - Piper Monzon - 12/12/2011 11:16 AM CST Can you please help with this referral. Just want to make sure there is nothing I am missing. Thanks! Amelie Monzon RN CTOR SCRIPT documented in this encounter Plan of Treatment Upcoming Encounters Date Type Department Care Team (Late st Contact Info) Description 03/19/2024 3:30 PM CDT Office Visit [facility] [address] [place] [address] [address] [place] [phone] Elmer Paul MD [address]167 [facility] [address] [place] [address] 04/16/2024 8:30 AM CDT Lab [facility] [place] [address] [facility] [address] [place] [phone] 04/20/2024 8:45 AM CDT Office Visit [facility] 6[address] [facility] [address] [place] [phone] Lavern Pope MD 6541 [facility] [address] [place] [address] documented as of this encounter Visit Diagnoses Diagnosis Jaw pain- Primary documented in this encounter Additional Health Concerns Infection Onset Date Last Indicated Resolved Time Rule Out COVID-19 01/11/2021 01/11/2021 01/11/2021 9:48 PM DIRECTOR SCRIPT documented as of this encounter Care Teams Tier Truck Driver Relationship Specialty Start Date End Date Carey Vuong MD [address] [place] [address] [place] [address] PCP - General 01/15/02 Carey Vuong MD [address] [place] [address] [place] [address] PCP - Assigned PCP 01/13/17 02/02/19 Carey Vuong MD [address] [place] [address] [place] [address] Assigned PCP 01/13/17 12/16/20 Mehreen Scott MD [address] [place] [phone] quality control assistant 12/15/19 Lavern Gonzalez MD 420 [facility] 394 [place] [address] Assigned Surgical Provider 09/22/20 04/07/21 [place] [address] [place] [address] Assigned PCP 12/17/20 02/21/21 Carey Vuong MD [address] [facility] [address] Assigned PCP 02/22/21 Lavern Gonzalez MD 420 [facility] 394 [place] [address] Assigned Surgical Provider 04/29/21 11/03/21 Prema Hitchcock PA-C [address] [place] [address] Assigned Surgical Provider 11/04/21 Chidi Puckett MD [address] [facility] 106 [place] [address] Assigned Sleep Provider 02/17/22 10/31/23 Harriet Lindsya Personal Advocate & Liaison (PAL) 06/17/22 Aisha Murdock PA-C [facility] [address] [place] [id number] Assigned Neuroscience Provider 06/08/22 11/28/23 Lavern Pope MD [address] [facility] 275 [place] [address] Cardiovascular Disease 11/11/22 Lavern Pope MD [address] [place] [address] Assigned Heart and Vascular Provider 11/16/22 Elmer Paul MD [address] [place] [address] Allergy & Immunology 02/17/23 Elmer Paul MD [address] [place] [address] Assigned Allergy Provider 04/26/23 Batool Torres NP [address] [place] [address] Nurse Practitioner Pulmonary Disease 08/11/23 [place] [address] [place] [address] Nurse Practitioner Nurse Practitioner 10/29/23 Batool Torres NP 1655 [place] [address] Assigned Pulmonology Provider 12/25/23 documented as of this encounter
--- OUTSIDE RECORDS SUMMARY | 2023-12-29 23:18 | XMS_ITS | Encounter Summary ---
Author Name Unknown Organization [facility] Address [address] [place] [address] Care Team Providers Care Block Sealer Name Role Phone Carey Vuong MD Primary Care Provider [phone] Carey Vuong MD Unavailable [phone] Carey Vuong MD Unavailable [phone] Mehreen Scott MD Unavailable +[phone] Lavern Gonzalez MD Unavailable [phone] Terry Romano MD Unavailable Carey Vuong MD Unavailable +[phone] Lavern Gonzalez MD Unavailable [phone] Prema Hitchcock-C Unavailable +[phone] Chidi Puckett MD Harriet Lindsay Unavailable Unavailable Aisha Murdock PA-C Unavailable +[phone] Lavern Pope MD Unavailable [phone] Lavern Pope MD Unavailable [phone] Elmer Paul MD Unavailable + [phone] Elmer Paul MD Unavailable + [phone] Batool Torres PERFORMANCE TEST ARCHITECT Unavailable Marlene Benoit PERFORMANCE TEST ARCHITECT Unavailable [phone] Batool Torres PERFORMANCE TEST ARCHITECT Unavailable +[phone] Reason for Referral * Referral not Required - Closed Specialty Diagnoses / Procedures Referred By Contac t Referred To Contact Diagnoses Knee pain Carey Vuong MD [address] [place] [address] [place] [address] ARTHRITIS & RHEUMATOLOGY CON [address] [place] [address] Phone: [phone] Referral ID Status Reason Start Date Expiration Date Visits Re quested Visits Authorized [id number] Closed 12/04/2011 06/01/2012 1 1 Comments Your provider has referred you to: Arthritis/Rheumatology Insurance Agents Supervisor [phone]/fax [phone] Please be aware that coverage of these services is subject to the terms and limitations of your health insurance plan. Call member services at your health plan with any benefit or coverage questions. Please bring the following to your appointment: >> Any x-rays, CTs or MRIs which have been performed. Contact the facility where they were done to arrange for continuous pickling line pickler helper prior to your scheduled appointment. Any new CT, MRI or other procedures ordered by your specialist must be performed at a [facility] facility or coordinated by your clinic's referral office. >> List of current medications >> This referral request >> Any documents/labs given to you for this referral PIECE ASSEMBLER Reason for Visit * Reason Onset Date Comments Referral 12/03/2011 arthritis, knee pain Encounter Details Date Type Department Care Team (Late st Contact Info) Description 12/03/2011 MyC Medical Advice [facility] [address] [facility] [place] [address] Carey Vuong MD [address] [place] [address] [place] [address] Referral (arthritis, knee pain) Social History Tobacco Use Types Packs/Day Years Used Date Smoking Tobacco: Every Day Cigarettes 0.5 10 Smokeless Tobacco: Never Alcohol Use Standard Drinks/Week Comments Yes 0 (1 standard drink = 0.6 oz pur e alcohol) occ--2 per month Sex and Gender Information Value Date Recorded Sex Assigned at Female 12/12/2019 6:30 PM FOOT PIECE ASSEMBLER Gender Identity Female 12/12/2019 6:30 PM FOOT PIECE ASSEMBLER Sexual Orientation Straight 04/04/2021 12 :18 PM CDT Travel History Travel Start Travel End [place] 12/06/2023 12/12/2023 documented as of this encounter Miscellaneous Notes * Telephone Encounter - Piper Monzon - 12/04/2011 9:30 AM CST I think she wants a second opinion regardless. The referral orders are pending but not sure what diagnosis to use and how to complete for 2nd opinion. Amelie Monzon RN PIECE ASSEMBLER documented in this encounter Plan of Treatment Upcoming Encounters Date Type Department Care Team (Late st Contact Info) Description 03/19/2024 3:30 PM CDT Office Visit [facility] [place] [address] [facility] [address] [place] [phone] Elmer Paul MD [address] [facility] [address] [place] [address] 04/16/2024 8:30 AM CDT Lab [facility] Heart [facility] [address] [facility] [address] [place] [phone] 04/20/2024 8:45 AM CDT Office Visit [facility] Heart [facility] [address] [facility] [address] [place] [phone] Lavern Pope MD [address] [facility] [address] [place] [id number] Scheduled Referrals Name Type Priority Associated Diagnoses Orde r Schedule RHEUMATOLOGY REFERRAL Referral Routine Knee pain 12/03/2011 documented as of this encounter Visit Diagnoses Diagnosis Knee pain- Primary Pain in joint, lower leg documented in this encounter Additional Health Concerns Infection Onset Date Last Indicated Resolved Time Rule Out COVID-19 01/11/2021 01/11/2021 01/11/2021 9:48 PM FOOT PIECE ASSEMBLER documented as of this encounter Care Teams Block Sealer Relationship Specialty Start Date End Date aCrey Vuong MD [address] [place] [address] [place] [address] PCP - General 01/15/02 Carey Vuong MD [address] [place] [address] [place] [address] PCP - Assigned PCP 01/13/17 02/02/19 Carey Vuong MD [address] [place] [address] [place] [address] Assigned PCP 01/13/17 12/16/20 Mehreen Scott MD [address] [place] [phone] grader green meat 12/15/19 Lavern Gonzalez MD [address] [place] [address] Assigned Surgical Provider 09/22/20 04/07/21 [place] [address] [place] [address] Assigned PCP 12/17/20 02/21/21 Carey Vuong MD [address] [place] [address] [place] AR[place] [address] Assigned PCP 02/22/21 Lavern Gonzalez MD [address] [facility] [address] [place] [address] Assigned Surgical Provider 04/29/21 11/03/21 Prema Hitchcock PA-C [address] [facility] [place] [address] Assigned Surgical Provider 11/04/21 Chidi Puckett MD [address] [place] [address] Assigned Sleep Provider 02/17/22 10/31/23 Harriet Lindsay Personal Advocate & Liaison (PAL) 06/17/22 Aisha Murdock PA-C [facility] [address] [place] [address] Assigned Neuroscience Provider 06/08/22 11/28/23 Lavern Pope MD [address] [facility] [address] [place] [address] Cardiovascular Disease 11/11/22 Lavern Pope MD [address] [facility] [address] [place] [address] Assigned Heart and Vascular Provider 11/16/22 Elmer Paul MD [address] [place] [address] Allergy & Immunology 02/17/23 Elmer Paul MD [address], [facility] [address] [place], [place] [address] Assigned Allergy Provider 04/26/23 Batool Torres, PERFORMANCE TEST ARCHITECT [address] [facility] [place] [address] Nurse Practitioner Pulmonary Disease 08/11/23 [place] [address] [place] [address] Nurse Practitioner Nurse Practitioner 10/29/23 Batool Torres, PERFORMANCE TEST ARCHITECT [address] [facility] [place] [address] Assigned Pulmonology Provider 12/25/23 documented as of this encounter
--- OUTSIDE RECORDS SUMMARY | 2023-12-29 23:18 | XMS_ITS | Encounter Summary ---
Author Name Unknown Organization [facility] Address [address] [place] [address] Care Team Providers Care Veterinary Technician Assistant Name Role Phone Carey Vuong MD Primary Care Provider [phone] Carey Vuong MD Unavailable [phone] Carey Vuong MD Unavailable [phone] Mehreen Scott MD Unavailable +[phone] Lavern Gonzalez MD Unavailable [phone] Terry Romano MD Unavailable Carey Vuong MD Unavailable [phone] Lavern Gonzalez MD Unavailable [phone] Prema Hitchcock-C Unavailable [phone] Chidi Puckett MD Harriet Lindsay Unavailable Unavailable Aisha Murdock PA-C Unavailable +[phone] Lavern Pope MD Unavailable +[phone] Lavern Pope MD Unavailable [phone] Elmer Paul MD Unavailable Elmer Paul MD Unavailable [phone] Batool Torres ENAMEL SPRAYER Unavailable CyMarlene Steinberg Randee ENAMEL SPRAYER Unavailable [phone] Batool Torres ENAMEL SPRAYER Unavailable Encounter Details Date Type Department Care Team (Late st Contact Info) Description 12/07/2012 [facility] Medical Advice [facility] [address] [place] [address] [place] [address] Carey Vuong MD [address] [facility] [place] [address] Social History Tobacco Use Types Packs/Day Years Used Date Smoking Tobacco: Former Cigarettes 0.5 10 Q uit: 08/01/2012 Smokeless Tobacco: Never Alcohol Use Standard Drinks/Week Comments Yes 0 (1 standard drink = 0.6 oz pur e alcohol) occ--2 per month Sex and Gender Information Value Date Recorded Sex Assigned at Female 12/12/2019 6:30 PM METAL TILE LATHER Gender Identity Female 12/12/2019 6:30 PM METAL TILE LATHER Sexual Orientation Straight 04/04/2021 12 :18 PM CDT Travel History Travel Start Travel End [place] 12/06/2023 12/12/2023 documented as of this encounter Plan of Treatment Upcoming Encounters Date Type Department Care Team (Late st Contact Info) Description 03/19/2024 3:30 PM CDT Office Visit [facility] [address] [facility] [address] [place] [phone] Elmer Paul MD [address] [facility] [address] [place] [address] 04/16/2024 8:30 AM CDT Lab [facility] [address] [facility] [address] [place] [phone] 04/20/2024 8:45 AM CDT Office Visit [facility] [address] [facility] [address] [place] [phone] Lavern Pope MD [address] [facility] 275 [place] [id number] documented as of this encounter Visit Diagnoses Not on filedocumented in this encounter Additional Health Concerns Infection Onset Date Last Indicated Resolved Time Rule Out COVID-19 01/11/2021 01/11/2021 01/11/2021 9:48 PM METAL TILE LATHER documented as of this encounter Care Teams Veterinary Technician Assistant Relationship Specialty Start Date End Date Carey Vuong MD [address] [place] [address] [place] ARNETT [id number] PCP - General 01/15/02 Carey Vuong MD [address] [place] [address] [place] [address] PCP - Assigned PCP 01/13/17 02/02/19 Carey Vuong MD [address] [place] [address] [place] ARNETT [id number] Assigned PCP 01/13/17 12/16/20 Mehreen Scott MD [address] [place] [phone] cold roll operator 12/15/19 Lavern Gonzalez MD 420 [facility] 394 [place], [place] [address] Assigned Surgical Provider 09/22/20 04/07/21 [place] [address] [place] [address] Assigned PCP 12/17/20 02/21/21 Carey Vuong MD [address] [facility] [place] [address] Assigned PCP 02/22/21 Lavern Gonzalez MD [address] [facility] [address] [place], [place] [address] Assigned Surgical Provider 04/29/21 11/03/21 Prema Hitchcock PA-C [address] [place] [address] Assigned Surgical Provider 11/04/21 Chidi Puckett MD [address] [place] [address] Assigned Sleep Provider 02/17/22 10/31/23 Harriet Lindsay Personal Advocate & Liaison (PAL) 06/17/22 Aisha Murdock PA-C [facility] [address] [place] [address] Assigned Neuroscience Provider 06/08/22 11/28/23 Lavern Pope MD [address] [place] [address] Cardiovascular Disease 11/11/22 Lavern Pope MD [address] [place] [address] Assigned Heart and Vascular Provider 11/16/22 Elmer Paul MD [address], [address] [place] [address] Allergy & Immunology 02/17/23 Elmer Paul MD [address], [address] [place] [address] Assigned Allergy Provider 04/26/23 Batool Torres, ZENOBIA [address] [facility] [place] [address] Nurse Practitioner Pulmonary Disease 08/11/23 [place] [address] [place] [address] Nurse Practitioner Nurse Practitioner 10/29/23 Batool Torres NP [address] [facility] [place] [address] Assigned Pulmonology Provider 12/25/23 documented as of this encounter
--- OUTSIDE RECORDS SUMMARY | 2023-12-29 23:18 | XMS_ITS | Encounter Summary ---
Author Name Unknown Organization [place] Address [address] [place] [address] Care Team Providers Care Evening Sitter Name Role Phone Carey Vuong MD Primary Care Provider [phone] Carey Vuong MD Unavailable [phone] Carey Vuong MD Unavailable [phone] Mehreen Scott MD Unavailable +[phone] Lavern Gonzalez MD Unavailable [phone] Terry Romano MD Unavailable Carey Vuong MD Unavailable [phone] Lavern Gonzalez MD Unavailable [phone] Prema Hitchcock-C Unavailable [phone] Chidi Puckett MD Harriet Lindsay Unavailable Unavailable Aisha Murdock PA-C Unavailable +[phone] Lavern Pope MD Unavailable [phone] Lavern Pope MD Unavailable [phone] Elmer Paul MD Unavailable Elmer Paul MD Unavailable [phone] Batool Torres PIERCE AND SHAVE PRESS OPERATOR Unavailable [phone] Marlene Benoit PIERCE AND SHAVE PRESS OPERATOR Unavailable Batool Torres PIERCE AND SHAVE PRESS OPERATOR Unavailable [phone] Encounter Details Date Type Department Care Team (Late st Contact Info) Description 08/01/[address] [facility] [address] [place] [address] [place] [phone] [facility] Social History Tobacco Use Types Packs/Day Years Used Date Smoking Tobacco: Every Day Cigarettes 0.5 10 Smokeless Tobacco: Never Alcohol Use Standard Drinks/Week Comments Yes 0 (1 standard drink = 0.6 oz pur e alcohol) occ--2 per month Sex and Gender Information Value Date Recorded Sex Assigned at Female 12/12/2019 6:30 PM STAFF SOFTWARE ENGINEER Gender Identity Female 12/12/2019 6:30 PM STAFF SOFTWARE ENGINEER Sexual Orientation Straight 04/04/2021 12 :18 PM CDT Travel History Travel Start Travel End [place] 12/06/2023 12/12/2023 documented as of this encounter Plan of Treatment Upcoming Encounters Date Type Department Care Team (Late st Contact Info) Description 03/19/2024 3:30 PM CDT Office Visit [facility] Specialty [facility] [address] [facility] 200 [place] [phone] Elmer Paul MD [address] [facility] 200 [place] [address] 04/16/2024 8:[address] [facility] Heart [facility] [address] [facility] [address] [place] [phone] 04/20/2024 8:45 AM CDT Office [facility] Heart [facility] [address] [facility] [address] [place] [phone] Lavern Pope MD [address] [facility] [address] [place] [address] documented as of this encounter Visit Diagnoses Not on filedocumented in this encounter Additional Health Concerns Infection Onset Date Last Indicated Resolved Time Rule Out COVID-19 01/11/2021 01/11/2021 01/11/2021 9:48 PM STAFF SOFTWARE ENGINEER documented as of this encounter Care Teams Evening Sitter Relationship Specialty Start Date End Date Carey Vuong MD [address] [place] [address] [place] [address] PCP - General 01/15/02 Carey Vuong MD [address] [place] [address] [place] [address] PCP - Assigned PCP 01/13/17 02/02/19 Carey Vuong MD [address] [place] [address] [place] [address] Assigned PCP 01/13/17 12/16/20 Mehreen Scott MD [address] [place] [phone] trimmer sorter 12/15/19 Lavern Gonzalez MD [address] [place] [address] 292835 Assigned Surgical Provider 09/22/20 04/07/21 [place] [address] [place] [address] Assigned PCP 12/17/20 02/21/21 Carey Vuong MD [address] [place] [address] [place] [address] Assigned PCP 02/22/21 Lavern Gonzalez MD [address] [facility] 394 [place] [address] Assigned Surgical Provider 04/29/21 11/03/21 Prema Hitchcock PA-C [address] [place] [address] Assigned Surgical Provider 11/04/21 Chidi Puckett MD [address] [place], [place] [address] Assigned Sleep Provider 02/17/22 10/31/23 Harriet Lindsay Personal Advocate & Liaison (PAL) 06/17/22 Aisha Murdock PA-C [facility] [address] [place] [address] Assigned Neuroscience Provider 06/08/22 11/28/23 Lavern Pope MD [address] [place] [address] Cardiovascular Disease 11/11/22 Lavern Pope MD [address] [place] [address] Assigned Heart and Vascular Provider 11/16/22 Elmer Paul MD [address] [place] [address] Allergy & Immunology 02/17/23 Elmer Paul MD [address] , [facility] 200 [place], [place] [address] Assigned Allergy Provider 04/26/23 Batool Torres, PIERCE AND SHAVE PRESS OPERATOR [address] [facility] [place] [address] Nurse Practitioner Pulmonary Disease 08/11/23 [place] [address] [place] [address] Nurse Practitioner Nurse Practitioner 10/29/23 Batool Torres, PIERCE AND SHAVE PRESS OPERATOR [address] [facility] [place] [address] Assigned Pulmonology Provider 12/25/23 documented as of this encounter
--- OUTSIDE RECORDS SUMMARY | 2023-12-29 23:18 | XMS_ITS | Encounter Summary ---
Author Name Unknown Organization [place] Address [address] [place] [address] Care Team Providers Care Health Promotion Manager Name Role Phone Carey Vuong MD Primary Care Provider [phone] Carey Vuong MD Unavailable [phone] Carey Vuong MD Unavailable [phone] Mehreen Scott MD Unavailable [phone] Lavern Gonzalez MD Unavailable [phone] Terry Romano MD Unavailable Carey Vuong MD Unavailable [phone] Lavern Gonzalez MD Unavailable [phone] Prema Hitchcock-C Unavailable [phone] Chidi Puckett MD Harriet Lindsay Unavailable Unavailable Aisha Murdock PA-C Unavailable +[phone] Lavern Pope MD Unavailable [phone] Lavern Pope MD Unavailable [phone] Elmer Paul MD Unavailable Elmer Paul MD Unavailable [phone] Batool Torres HAIR SPRING CUTTER Unavailable Marlene Benoit HAIR SPRING CUTTER Unavailable Batool Torres HAIR SPRING CUTTER Unavailable [phone] Encounter Details Date Type Department Care Team (Late st Contact Info) Description 06/05/2012 MyC Medical Advice [address] [place] [phone] [facility] Social History Tobacco Use Types Packs/Day Years Used Date Smoking Tobacco: Former Cigarettes 0.5 10 Q uit: 10/07/2011 Smokeless Tobacco: Never Alcohol Use Standard Drinks/Week Comments Yes 0 (1 standard drink = 0.6 oz pur e alcohol) occ--2 per month Sex and Gender Information Value Date Recorded Sex Assigned at Female 12/12/2019 6:30 PM THERAPEUTIC CASE MANAGER Gender Identity Female 12/12/2019 6:30 PM THERAPEUTIC CASE MANAGER Sexual Orientation Straight 04/04/2021 12 :18 PM CDT Travel History Travel Start Travel End [place] 12/06/2023 12/12/2023 documented as of this encounter Plan of Treatment Upcoming Encounters Date Type Department Care Team (Late st Contact Info) Description 03/19/2024 3:30 PM CDT Office Visit [facility] Specialty [facility] [address] [facility] 200 [place] [phone] Elmer Paul MD [address] [place] [address] 04/16/2024 8:30 AM CDT Lab [facility] Heart [facility] [address] [facility] [address] [place] [phone] 04/20/2024 8:45 AM CDT Office Visit [facility] Heart [facility] [address] [facility] [address] [place] [phone] Lavern Pope MD [address] [facility] 275 [place] [address] documented as of this encounter Visit Diagnoses Not on filedocumented in this encounter Additional Health Concerns Infection Onset Date Last Indicated Resolved Time Rule Out COVID-19 01/11/2021 01/11/2021 01/11/2021 9:48 PM THERAPEUTIC CASE MANAGER documented as of this encounter Care Teams Health Promotion Manager Relationship Specialty Start Date End Date Carey Vuong MD [address] [place] [address] [place]T [address] PCP - General 01/15/02 Carey Vuong MD [address] [place] [address] [place] [address] PCP - Assigned PCP 01/13/17 02/02/19 Carey Vuong MD [address] [place] [address] [place] [address] Assigned PCP 01/13/17 12/16/20 Mehreen Scott MD [address] [place] [address] modeling agency manager 12/15/19 Lavern Gonzalez MD [address] [place] [address] 394 [place] [address] Assigned Surgical Provider 09/22/20 04/07/21 [place] [address] [place] [address] Assigned PCP 12/17/20 02/21/21 Carey Vuong MD [address] [facility] [place] [address] Assigned PCP 02/22/21 Lavern Gonzalez MD [address] [facility] 394 [place] [address] Assigned Surgical Provider 04/29/21 11/03/21 Prema Hitchcock PA-C [address] [place] [place] [place] [address] Assigned Surgical Provider 11/04/21 Chidi Puckett MD [address] [place], [place] [address] Assigned Sleep Provider 02/17/22 10/31/23 Harriet Lindsay Personal Advocate & Liaison (PAL) 06/17/22 Aisha Murdock PA-C [facility] [address] [place] [address] Assigned Neuroscience Provider 06/08/22 11/28/23 Lavern Pope MD [address] [place] [address] Cardiovascular Disease 11/11/22 Lavern Pope MD [address] [place] [address] Assigned Heart and Vascular Provider 11/16/22 Elmer Paul MD [address] [place] [address] Allergy & Immunology 02/17/23 Elmer Paul MD [address] , [facility] 200 [place] [address] Assigned Allergy Provider 04/26/23 Batool Torres, HAIR SPRING CUTTER [address] [facility] [place] [address] Nurse Practitioner Pulmonary Disease 08/11/23 [place] [address] [place] [address] Nurse Practitioner Nurse Practitioner 10/29/23 Batool Torres, HAIR SPRING CUTTER 16[address] [facility] [place] [address] Assigned Pulmonology Provider 12/25/23 documented as of this encounter
--- OUTSIDE RECORDS SUMMARY | 2023-12-29 23:18 | XMS_ITS | Encounter Summary ---
Author Name Unknown Organization [facility] Address [address] [place] [address] Care Team Providers Care Rigging Engineer Name Role Phone Carey Vuong MD Primary Care Provider [phone] Carey Vuong MD Unavailable [phone] Carey Vuong MD Unavailable [phone] Mehreen Scott MD Unavailable [phone] Lavern Gonzalez MD Unavailable [phone] Terry Romano MD Unavailable Carey Vuong MD Unavailable [phone] Lavern Gonzalez MD Unavailable [phone] Prema Hitchcock-C Unavailable +[phone] Chidi Puckett MD Harriet Lindsay Unavailable Unavailable Aisha Murdock PA-C Unavailable +[phone] Lavern Pope MD Unavailable [phone] Lavern Pope MD Unavailable [phone] Elmer Paul MD Unavailable Elmer Paul MD Unavailable Batool Torres INSIDE SALES ASSISTANT Unavailable [phone] Marlene Benoit INSIDE SALES ASSISTANT Unavailable [phone] Batool Torres INSIDE SALES ASSISTANT Unavailable Reason for Visit * Reason Onset Date Comments Ear Problem 06/10/2011 swimmer's ear Encounter Details Date Type Department Care Team (Late st Contact Info) Description 06/10/2011 MyC Medical Advice [address] [place] [phone] Carey Vuong MD [address] [facility] [place] [address] Ear Problem (swimmer's ear) Social History Tobacco Use Types Packs/Day Years Used Date Smoking Tobacco: Every Day Cigarettes 0.5 10 Smokeless Tobacco: Never Alcohol Use Standard Drinks/Week Comments Yes 0 (1 standard drink = 0.6 oz pur e alcohol) occ--2 per month Sex and Gender Information Value Date Recorded Sex Assigned at Female 12/12/2019 6:30 PM SEO EXECUTIVE Gender Identity Female 12/12/2019 6:30 PM SEO EXECUTIVE Sexual Orientation Straight 04/04/2021 12 :18 PM CDT Travel History Travel Start Travel End [place] 12/06/2023 12/12/2023 documented as of this encounter Plan of Treatment Upcoming Encounters Date Type Department Care Team (Late st Contact Info) Description 03/19/2024 3:30 PM CDT Office Visit [facility] [address] [facility] [address] [place] [phone] Elmer Paul MD [address] [facility], [address] [place] [address] 04/16/2024 8:30 AM CDT Lab [facility] [address] [facility] [address] [place] [phone] 04/20/2024 8:45 AM CDT Office Visit [facility] [address] [facility] [address] [place] [phone] Lavern Pope MD [address] [facility] [address] [place] [address] documented as of this encounter Visit Diagnoses Not on filedocumented in this encounter Additional Health Concerns Infection Onset Date Last Indicated Resolved Time Rule Out COVID-19 01/11/2021 01/11/2021 01/11/2021 9:48 PM SEO EXECUTIVE documented as of this encounter Care Teams Rigging Engineer Relationship Specialty Start Date End Date Carey Vuong MD [address] [place] [address] [place] [address] PCP - General 01/15/02 Carey Vuong MD [address] [place] [address] [place] [address] PCP - Assigned PCP 01/13/17 02/02/19 Carey Vuong MD [address] [place] [address] [place] [address] Assigned PCP 01/13/17 12/16/20 Mehreen Scott MD [address] [place] [phone] meat grading machine operator 12/15/19 Lavern Gonzalez MD [address] [facility] [address] [place] [address] Assigned Surgical Provider 09/22/20 04/07/21 [place] [address] [place] [address] Assigned PCP 12/17/20 02/21/21 Carey Vuong MD [address] [facility] [place] [address] Assigned PCP 02/22/21 Lavern Gonzalez MD 420 [facility] [address] [place], [place] [address] Assigned Surgical Provider 04/29/21 11/03/21 Prema Hitchcock PA-C [address] [place] [address] Assigned Surgical Provider 11/04/21 Chidi Puckett MD [address] [place], [place] [address] Assigned Sleep Provider 02/17/22 10/31/23 Harriet Lindsay Personal Advocate & Liaison (PAL) 06/17/22 Aisha Murdock PA-C [facility] [address] [place] [address] Assigned Neuroscience Provider 06/08/22 11/28/23 Lavern Pope MD [address] [place] [address] Cardiovascular Disease 11/11/22 Lavern Pope MD [address] [facility] [address] [place] [id number] Assigned Heart and Vascular Provider 11/16/22 Elmer Paul MD [address] [place], [place] [address] Allergy & Immunology 02/17/23 Elmer Paul MD [address] [place], [place] [address] Assigned Allergy Provider 04/26/23 [place] [address] [place] [address] Nurse Practitioner Pulmonary Disease 08/11/23 [place] [address] [place] [address] Nurse Practitioner Nurse Practitioner 10/29/23 Batool Torres NP [address] [place] [address] Assigned Pulmonology Provider 12/25/23 documented as of this encounter
--- OUTSIDE RECORDS SUMMARY | 2023-12-29 23:18 | XMS_ITS | Encounter Summary ---
Author Name Unknown Organization [facility] Address [address] [place] [address] Care Team Providers Care Painter And Decorator Apprentice Name Role Phone Carey Vuong MD Primary Care Provider [phone] Carey Vuong MD Unavailable [phone] Carey Vuong MD Unavailable [phone] Mehreen Scott MD Unavailable [phone] Lavern Gonzalez MD Unavailable [phone] Terry Romano MD Unavailable Carey Vuong MD Unavailable [phone] Lavern Gonzalez MD Unavailable [phone] Prema Hitchcock-C Unavailable [phone] Chidi Puckett MD Harriet Lindsay Unavailable Unavailable Aisha Murdock PA-C Unavailable +[phone] Lavern Pope MD Unavailable [phone] Lavern Pope MD Unavailable [phone] Elmer Paul MD Unavailable Elmer Paul MD Unavailable [phone] Batool Torres BUILDER OPERATOR Unavailable [phone] Marlene Benoit BUILDER OPERATOR Unavailable Batool Torres BUILDER OPERATOR Unavailable [phone] Encounter Details Date Type Department Care Team (Late st Contact Info) Description 07/30/2011 MyC Medical Advice [facility] [address] [place] [address] [place] [phone] [facility] Social History Tobacco Use Types Packs/Day Years Used Date Smoking Tobacco: Every Day Cigarettes 0.5 10 Smokeless Tobacco: Never Alcohol Use Standard Drinks/Week Comments Yes 0 (1 standard drink = 0.6 oz pur e alcohol) occ--2 per month Sex and Gender Information Value Date Recorded Sex Assigned at Female 12/12/2019 6:30 PM SHIFT SUPERVISOR RN Gender Identity Female 12/12/2019 6:30 PM SHIFT SUPERVISOR RN Sexual Orientation Straight 04/04/2021 12 :18 PM CDT Travel History Travel Start Travel End [place] 12/06/2023 12/12/2023 documented as of this encounter Plan of Treatment Upcoming Encounters Date Type Department Care Team (Late st Contact Info) Description 03/19/2024 3:30 PM CDT Office Visit [facility] [address] [facility] 200 [place] [phone] Elmer Paul MD 4971 [facility] 200 [place] [address] 04/16/2024 8:30 AM CDT Lab [facility] [address] [facility] [address] [place] [phone] 04/20/2024 8:45 AM CDT Office Visit [facility] [address] [facility] [address] [place] [phone] Lavern Pope MD [address] [facility] [address] [place] [address] documented as of this encounter Visit Diagnoses Not on filedocumented in this encounter Additional Health Concerns Infection Onset Date Last Indicated Resolved Time Rule Out COVID-19 01/11/2021 01/11/2021 01/11/2021 9:48 PM SHIFT SUPERVISOR RN documented as of this encounter Care Teams Painter And Decorator Apprentice Relationship Specialty Start Date End Date Carey Vuong MD [address] [place] [address] [place] [address] PCP - General 01/15/02 Carey Vuong MD [address] [place] [address] [place] [address] PCP - Assigned PCP 01/13/17 02/02/19 Carey Vuong MD [address] [place] [address] [place] [address] Assigned PCP 01/13/17 12/16/20 Mehreen Scott MD [address] [place] [phone] visual merchandising associate 12/15/19 Lavern Gonzalez MD [address] [place] [address]58375 Assigned Surgical Provider 09/22/20 04/07/21 [place] [address] [place] [address] Assigned PCP 12/17/20 02/21/21 Carey Vuong MD [address] [place] [address] [place] [address] Assigned PCP 02/22/21 Lavern Gonzalez MD [address] [facility] 394 [place] [address] Assigned Surgical Provider 04/29/21 11/03/21 Prema Hitchcock PA-C [address] [place] [address] Assigned Surgical Provider 11/04/21 Chidi Puckett MD [address] [place], [place] 385534 Assigned Sleep Provider 02/17/22 10/31/23 Harriet Lindsay Personal Advocate & Liaison (PAL) 06/17/22 Aisha Murdock PA-C [facility] [address] [place] [address] Assigned Neuroscience Provider 06/08/22 11/28/23 Lavern Pope MD [address] [place] [address] Cardiovascular Disease 11/11/22 Lavern Pope MD [address] [place] [address]2775 Assigned Heart and Vascular Provider 11/16/22 Elmer Paul MD [address] [place] [address] Allergy & Immunology 02/17/23 Elmer Paul MD [address] , [facility] 200 [place], [place] [address] Assigned Allergy Provider 04/26/23 Batool Torres, BUILDER OPERATOR [address] [facility] [place] [address] Nurse Practitioner Pulmonary Disease 08/11/23 [place] [address] [place] [address] Nurse Practitioner Nurse Practitioner 10/29/23 Batool Torres, BUILDER OPERATOR [address] [facility] [address] Assigned Pulmonology Provider 12/25/23 documented as of this encounter
--- OUTSIDE RECORDS SUMMARY | 2023-12-29 23:18 | XMS_ITS | Encounter Summary ---
Author Name Unknown Organization [facility] Address [address] [place] [address] Care Team Providers Care Informatics Physician Name Role Phone Carey Vuong MD Primary Care Provider [phone] Carey Vuong MD Unavailable [phone] Carey Vuong MD Unavailable [phone] Mehreen Scott MD Unavailable [phone] Lavern Gonzalez MD Unavailable [phone] Terry Romano MD Unavailable Carey Vuong MD Unavailable [phone] Lavern Gonzalez MD Unavailable [phone] Prema Hitchcock-C Unavailable [phone] Chidi Puckett MD Harriet Lindsay Unavailable Unavailable Aisha Murdock PA-C Unavailable [phone] Lavern Pope MD Unavailable [phone] Lavern Pope MD Unavailable [phone] Elmer Paul MD Unavailable Elmer Paul MD Unavailable [phone] Batool Torres FOSTER WINDER Unavailable Marlene Benoit FOSTER WINDER Unavailable Batool Torres FOSTER WINDER Unavailable Encounter Details Date Type Department Care Team (Late st Contact Info) Description 12/07/[address] [facility] [address] [facility] [place] [phone] [facility] Moderate major depression (H) (Primary Dx) Social History Tobacco Use Types Packs/Day Years Used Date Smoking Tobacco: Former Cigarettes 0.5 10 Q uit: 08/01/2012 Smokeless Tobacco: Never Alcohol Use Standard Drinks/Week Comments Yes 0 (1 standard drink = 0.6 oz pur e alcohol) occ--2 per month Sex and Gender Information Value Date Recorded Sex Assigned at Female 12/12/2019 6:30 PM FARM CONTRACTOR Gender Identity Female 12/12/2019 6:30 PM FARM CONTRACTOR Sexual Orientation Straight 04/04/2021 12 :18 PM CDT Travel History Travel Start Travel End [place] 12/06/2023 12/12/2023 documented as of this encounter Plan of Treatment Upcoming Encounters Date Type Department Care Team (Late st Contact Info) Description 03/19/2024 3:30 PM CDT Office Visit [facility] [address] [facility] [address] [place] [phone] Elmer Paul MD [address] [facility] [address] [place] [address] 04/16/2024 8:30 AM CDT Lab [facility] [address] [facility] [address] [place] [phone] 04/20/2024 8:45 AM CDT Office Visit [facility] [address] [facility] [address] [place] [phone] Lavern Pope MD [address] [facility] [address] [place] [address] documented as of this encounter Visit Diagnoses Diagnosis Moderate major depression (H)- Primary Major depressive disorder, single episode, moderate documented in this encounter Additional Health Concerns Infection Onset Date Last Indicated Resolved Time Rule Out COVID-19 01/11/2021 01/11/2021 01/11/2021 9:48 PM FARM CONTRACTOR documented as of this encounter Care Teams Informatics Physician Relationship Specialty Start Date End Date Carey Vuong MD [address] [place] [address] [place] [address] PCP - General 01/15/02 Carey Vuong MD [address] [place] [address] [place] [address] PCP - Assigned PCP 01/13/17 02/02/19 Carey Vuong MD [address] [place] [address] [place] [address] Assigned PCP 01/13/17 12/16/20 Mehreen Scott MD [address] [place] [phone] yeast maker 12/15/19 Lavern Gonzalez MD 420 [facility] 394 [place], [place] [address] Assigned Surgical Provider 09/22/20 04/07/21 [place] [address] [place] [address] Assigned PCP 12/17/20 02/21/21 Carey Vuong MD [address] [facility] [place] [address] Assigned PCP 02/22/21 Lavern Gonzalez MD 420 [facility] 394 [place], [place] [address] Assigned Surgical Provider 04/29/21 11/03/21 Prema Hitchcock PA-C [address] [place] [address] Assigned Surgical Provider 11/04/21 Chidi Puckett MD [address] [place], [place] [address] Assigned Sleep Provider 02/17/22 10/31/23 Harriet Lindsay Personal Advocate & Liaison (PAL) 06/17/22 Aisha Murdock PA-C [facility] [address] [place] [address] Assigned Neuroscience Provider 06/08/22 11/28/23 Lavern Pope MD [address] [place], [place] [address] Cardiovascular Disease 11/11/22 Lavern Pope MD [address] [place], [place] [address] Assigned Heart and Vascular Provider 11/16/22 Elmer Paul MD [address] [place] [address] Allergy & Immunology 02/17/23 Elmer Paul MD [address] [place] [address] Assigned Allergy Provider 04/26/23 Batool Torres, FOSTER WINDER [address] [place] [address] Nurse Practitioner Pulmonary Disease 08/11/23 [place] [address] [place] [address] Nurse Practitioner Nurse Practitioner 10/29/23 Batool Torres NP [address] [place] [address] Assigned Pulmonology Provider 12/25/23 documented as of this encounter
--- OUTSIDE RECORDS SUMMARY | 2023-12-29 23:18 | XMS_ITS | Encounter Summary ---
Author Name Unknown Organization [facility] Address [address] [place] [address] Care Team Providers Care Recreation Teacher Name Role Phone Carey Vuong MD Primary Care Provider [phone] Carey Vuong MD Unavailable [phone] Carey Vuong MD Unavailable [phone] Mehreen Scott MD Unavailable [phone] Lavern Gonzalez MD Unavailable [phone] Terry Romano MD Unavailable Carey Vuong MD Unavailable [phone] Lavern Gonzalez MD Unavailable [phone] Prema Hitchcock-C Unavailable [phone] Chidi Puckett MD Harriet Lindsay Unavailable Unavailable Aisha Murdock PA-C Unavailable +[phone] Lavern Pope MD Unavailable [phone] Lavern Pope MD Unavailable [phone] Elmer Paul MD Unavailable Elmer Paul MD Unavailable [phone] Batool Torres DISTRICT FIRE MANAGEMENT OFFICER Unavailable [phone] Marlene Benoit DISTRICT FIRE MANAGEMENT OFFICER Unavailable Batool Torres DISTRICT FIRE MANAGEMENT OFFICER Unavailable Encounter Details Date Type Department Care Team (Late st Contact Info) Description 11/01/2013 MyC Medical Advice [address] [place] [phone] [facility] Social History Tobacco Use Types Packs/Day Years Used Date Smoking Tobacco: Former Cigarettes 0.5 10 Q uit: 08/01/2012 Smokeless Tobacco: Never Alcohol Use Standard Drinks/Week Comments Yes 0 (1 standard drink = 0.6 oz pur e alcohol) occ--2 per month Sex and Gender Information Value Date Recorded Sex Assigned at Female 12/12/2019 6:30 PM ASSEMBLY ROOM SUPERVISOR Gender Identity Female 12/12/2019 6:30 PM ASSEMBLY ROOM SUPERVISOR Sexual Orientation Straight 04/04/2021 12 :18 PM CDT Travel History Travel Start Travel End [place] 12/06/2023 12/12/2023 documented as of this encounter Plan of Treatment Upcoming Encounters Date Type Department Care Team (Late st Contact Info) Description 03/19/2024 3:30 PM CDT Office Visit [facility] [address] [facility] 200 [place] [phone] Elmer Paul MD [address] [place] [address] 04/16/2024 8:30 AM CDT Lab [facility] [address] [facility] [address] [place] [phone] 04/20/2024 8:45 AM CDT Office Visit [facility] [address] [facility] [address] [place] [phone] Lavern Pope MD [address] [facility] 275 [place] [address] documented as of this encounter Visit Diagnoses Not on filedocumented in this encounter Additional Health Concerns Infection Onset Date Last Indicated Resolved Time Rule Out COVID-19 01/11/2021 01/11/2021 01/11/2021 9:48 PM ASSEMBLY ROOM SUPERVISOR documented as of this encounter Care Teams Recreation Teacher Relationship Specialty Start Date End Date Carey Vuong MD [address] [place] [address] [place] [address] PCP - General 01/15/02 Carey Vuong MD [address] [place] [address] [place] [address] PCP - Assigned PCP 01/13/17 02/02/19 Carey Vuong MD [address] [place] [address] [place] [address] Assigned PCP 01/13/17 12/16/20 Mehreen Scott MD [address] [place] [address] commercial lines manager 12/15/19 Lavern Gonzalez MD [address] [place] [address] 394 [place] [address] Assigned Surgical Provider 09/22/20 04/07/21 [place] [address] [place] [address] Assigned PCP 12/17/20 02/21/21 Carey Vuong MD [address] [facility] [place] [address] Assigned PCP 02/22/21 Lavern Gonzalez MD 420 [facility] 394 [place] [address] Assigned Surgical Provider 04/29/21 11/03/21 Prema Hitchcock PA-C [address] [place] [address] Assigned Surgical Provider 11/04/21 Chidi Puckett MD [address] [place], [place] [address] Assigned Sleep Provider 02/17/22 10/31/23 Harriet Lindsay Personal Advocate & Liaison (PAL) 06/17/22 Aisha Murdock PA-C [facility] [address] [place] [address] Assigned Neuroscience Provider 06/08/22 11/28/23 Lavern Pope MD [address] [place] [address] Cardiovascular Disease 11/11/22 Lavern Pope MD [address] [place] [address] Assigned Heart and Vascular Provider 11/16/22 Elmer Paul MD [address] [place] [address] Allergy & Immunology 02/17/23 Elmer Paul MD [address] , [facility] 200 [place] [address] Assigned Allergy Provider 04/26/23 Batool Torres, DISTRICT FIRE MANAGEMENT OFFICER 1655 [facility] [place] [address] Nurse Practitioner Pulmonary Disease 08/11/23 [place] [address] [place] [address] Nurse Practitioner Nurse Practitioner 10/29/23 Batool Torres, DISTRICT FIRE MANAGEMENT OFFICER 1655 [facility] [place] [address] Assigned Pulmonology Provider 12/25/23 documented as of this encounter
--- OUTSIDE RECORDS SUMMARY | 2023-12-29 23:18 | XMS_ITS | Encounter Summary ---
Author Name Unknown Organization [place] Address [address] [place] [address] Care Team Providers Care Senior Risk Analyst Name Role Phone Carey Vuong MD Primary Care Provider [phone] Carey Vuong MD Unavailable [phone] Carey Vuong MD Unavailable [phone] Mehreen Soctt MD Unavailable [phone] Lavern Gonzalez MD Unavailable [phone] Terry Romano MD Unavailable Carey Vuong MD Unavailable [phone] Lavern Gonzalez MD Unavailable [phone] Prema Hitchcock-C Unavailable [phone] Chidi Puckett MD Harriet Lindsay Unavailable Unavailable Aisha Murdock PA-C Unavailable +[phone] Lavern Pope MD Unavailable [phone] Lavern Pope MD Unavailable [phone] Elmer Paul MD Unavailable [phone] Elmer Paul MD Unavailable + [phone] Batool Torres MILL WORKER Unavailable [phone] aMrlene Benoit MILL WORKER Unavailable +[phone] Batool Torres MILL WORKER Unavailable +[phone] Encounter Details Date Type Department Care Team (Late st Contact Info) Description 06/24/2012 Office Visit-[facility] [place] [address] [facility] [address] [place] [phone] Donn Ortiz MD [address] [facility] [address] [place] [id number] Social History Tobacco Use Types Packs/Day Years Used Date Smoking Tobacco: Former Cigarettes 0.5 10 Q uit: 10/07/2011 Smokeless Tobacco: Never Alcohol Use Standard Drinks/Week Comments Yes 0 (1 standard drink = 0.6 oz pur e alcohol) occ--2 per month Sex and Gender Information Value Date Recorded Sex Assigned at Female 12/12/2019 6:30 PM SYS DIR Gender Identity Female 12/12/2019 6:30 PM SYS DIR Sexual Orientation Straight 04/04/2021 12 :18 PM CDT Travel History Travel Start Travel End [place] 12/06/2023 12/12/2023 documented as of this encounter Progress Notes * Donn Ortiz MD - 06/25/2012 11:06 AM CDT Progress Note Created by: Donn Ortiz M.D. [id number] DATE: 06/24/2012 DANIELLE RAYA DATE OF : 1975 AGE: [age] years old Referring Physician: CAREY VUONG Referring Clinic: [facility] CURRENT DIAGNOSES 1. - Chest Pain Precordial, 786.51 2. - Tobacco excess, 305.1 3. - Palpitations, 785.1 ALLERGIES NKDA MEDICATIONS (prior to changes made today) 1. citalopram 20 mg tablet, 1 p.o. daily 2. Zyrtec 10 mg capsule, 1 p.o. PRN as Directed CHIEF COMPLAINTS HISTORY OF PRESENT ILLNESS Thank you for allowing me to participate in the care of this very delightful patient. As you know, Danielle is a 37-year-old patient with a history of symptomatic PVCs manifests as palpitation along with chest pain. She did undergo a stress test 5 years ago when this was diagnosed and the stress test was normal. She was recently hospitalized too for similar episodes and was discharged without medical therapy presumably because of her relatively low blood pressure. The patient is scheduled to have arthroscopic knee surgery. She has had multiple procedures in the past because of severe degenerative joint disease due mostly to her sports involvement. In light of her PVCs, I was asked to see herto risk stratify her for the upcoming surgery. The patient otherwise is in an excellent states of health. The limiting factor has been her knees. She states that her surgeon would like to delay knee replacement as long as possible. They have tried multiple methods to alleviate the pain but now it is to the point that it is unbearable. The patient otherwise denies any orthopnea, PND. They did obtain a 24-hour Holter monitor. On that day she did have some palpitations but not as severe as before. She has about 8,300 of them which is about 90%of the time but the PVCs all were monomorphic in nature and most of them were isolated. The 12-leadEKG obtained in your office and my office demonstrates sinus rhythm with occasional monomorphic PVCs consists of a left bundle branch and late precordial transition and an inferior axis suggestive ofan outflow tract origin probably on right. The examination is otherwise unremarkable. PAST HISTORY Past Medical Illnesses: tobacco use disorder, asthma, depression Past Cardiac Illnesses: PVCs Cardiology Procedures-NonInvasive: stress echo Jan 2007, holter monitor May 2012 LVEF not documented PHYSICAL EXAMINATION VITAL SIGNS: Blood Pressure: 118/68Sitting, Left arm, regular cuff Pulse- 60.00/min. Weight- 175.00 lbs. Height- 66 BMI Measurement: 28 CONSTITUTIONAL cooperative, alert and oriented,well developed, well nourished, in no acute distress. SKIN warm and dry to touch, no apparent skin lesions, or masses noted. HEAD normocephalic, atraumatic EYES Pupils equal and round, conjunctivae and lids unremarkable, sclera white, no xanthalasma ENT no pallor or cyanosis, dentition good NECK carotid pulses are full and equal bilaterally, JVP normal, no carotid bruit, no thyromegaly CHEST normal symmetry, no tenderness to palpation, normal respiratory excursion, no intercostal retraction, no use of accessory muscles, clear to auscultation and percussion. CARDIAC regular rhythm, S1 normal, S2 normal, No S3 or S4, Apical impulse not displaced, no murmurs, gallops or rubs detected. ABDOMEN abdomen soft, bowel sounds normoactive, no masses, no hepatosplenomegaly, non- tender, no bruits EXTREMITIES & BACK no deformities, clubbing, cyanosis, erythema or edema observed. There are no spinal abnormalities noted. Normal muscle strength and tone. NEUROLOGICAL no gross motor deficits noted, affect appropriate, oriented to time, person and place. MEDICATIONS UPDATED/STARTED TODAY: citalopram 20 mg tablet, 1 p.o. daily, #0 (Zero) Zyrtec 10 mg capsule, 1 p.o. 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 We went over the potential complications of these PVCs that is it has a benign prognosis, however if the burden is quite high such as up to 20% in a day, there is a small chance of previously induced cardiomyopa thy. In her case only 9%, however the treatment is really tailored for symptom control. As the patient is quite symptomatic with PVCs resulting in occasional hospitalization, I suggested the option of ablation, which potentially has a high curative rate. The other option is medical therapy but given her relatively low blood pressure this may make it worse. Obviously this could be done any time after her surgery. Regarding her cardiac risk for this nonvascular arthroscopic surgery, it is quite low. She may havemore PVCs during the freddy or postoperative trace. If it becomes too much, especially with symptoms,a simple calcium channel jimmie may be enough. There is no need for a preoperative beta-jimmie orcalcium jimmie. Thank you for allowing me to participate in the care of this delightful patient. TODAYS ORDERS Donn Ortiz M.D. documented in this encounter Plan of Treatment Upcoming Encounters Date Type Department Care Team (Late st Contact Info) Description 03/19/2024 3:30 PM CDT Office Visit [facility] Specialty [facility] [address] [facility] [address] [place] [phone] Elmer Paul MD [address] [facility] [address] [place] [address] 04/16/2024 8:30 AM CDT Lab [facility] Heart [facility] [address] [facility] [address] [place] [phone] 04/20/2024 8:45 AM CDT Office Visit [facility] Heart [facility] [address] [facility] [address] [place] [phone] Lavern Pope MD [address] [facility] [address] [place] [address] documented as of this encounter Visit Diagnoses Not on filedocumented in this encounter Additional Health Concerns Infection Onset Date Last Indicated Resolved Time Rule Out COVID-19 01/11/2021 01/11/2021 01/11/2021 9:48 PM SYS DIR documented as of this encounter Care Teams Senior Risk Analyst Relationship Specialty Start Date End Date Carey Vuong MD [address] [place] [address] [place] [address] PCP - General 01/15/02 Carey Vuong MD [address] [place] [address] [place] [address] PCP - Assigned PCP 01/13/17 02/02/19 Carey Vuong MD [address] [place] [address] [place] [address] Assigned PCP 01/13/17 12/16/20 Mehreen Scott MD [address] [phone] account manager [email or web address] 12/15/19 Lavern Gonzalez MD [address] [place] [address] 394 [place], [place] [id number] Assigned Surgical Provider 09/22/20 04/07/21 [place] [address] [place] [address] Assigned PCP 12/17/20 02/21/21 Carey Vuong MD [address] [place] [address] [place] [address] Assigned PCP 02/22/21 Lavern Gonzalez MD [address] [facility] [address] [place], [place] [address] Assigned Surgical Provider 04/29/21 11/03/21 Prema Hitchcock PA-C [address] [place], [place] [id number] Assigned Surgical Provider 11/04/21 Chidi Puckett MD [address] [place], [place] [address] Assigned Sleep Provider 02/17/22 10/31/23 Harriet Lindsay Personal Advocate & Liaison (PAL) 06/17/22 Aisha Murdock PA-C [facility] [address] [place] [address] Assigned Neuroscience Provider 06/08/22 11/28/23 Lavern Pope MD [address] [facility] [address] [place], [place] [address] Cardiovascular Disease 11/11/22 Lavern Pope MD [address] [place], [place] [address] Assigned Heart and Vascular Provider 11/16/22 Elmer Paul MD [address] [place], [place] [address] Allergy & Immunology 02/17/23 Elmer Paul MD [address] , [address] [place] [address] Assigned Allergy Provider 04/26/23 Batool Torres, ZENOBIA [address] [facility] [place] [address] Nurse Practitioner Pulmonary Disease 08/11/23 [place] [address] [place] [address] Nurse Practitioner Nurse Practitioner 10/29/23 Batool Torres, ZENOBIA [address] [facility] [place] [address] Assigned Pulmonology Provider 12/25/23 documented as of this encounter
--- OUTSIDE RECORDS SUMMARY | 2023-12-29 23:18 | XMS_ITS | Encounter Summary ---
Author Name Unknown Organization [place] Address [address] [place] [address] Care Team Providers Care Medical Lab Scientist Name Role Phone Carey Vuong MD Primary Care Provider [phone] Carey Vuong MD Unavailable [phone] Carey Vuong MD Unavailable [phone] Mehreen Scott MD Unavailable [phone] Lavern Gonzalez MD Unavailable [phone] Terry Romano MD Unavailable Carey Vuong MD Unavailable [phone] Lavern Gonzalez MD Unavailable [phone] Prema Hitchcock-C Unavailable [phone] Chidi Puckett MD Harriet Lindsay Unavailable Unavailable Aisha Murdock PA-C Unavailable [phone] Lavern Pope MD Unavailable [phone] Lavern Pope MD Unavailable [phone] Elmer Paul MD Unavailable Elmer Paul MD Unavailable [phone] Batool Torres VAT TENDER Unavailable [phone] Marlene Benoit VAT TENDER Unavailable Batool Torres VAT TENDER Unavailable Encounter Details Date Type Department Care Team (Late st Contact Info) Description 06/05/2012 MyC Medical Advice [address] [place] [phone] [facility] Social History Tobacco Use Types Packs/Day Years Used Date Smoking Tobacco: Former Cigarettes 0.5 10 Q uit: 10/07/2011 Smokeless Tobacco: Never Alcohol Use Standard Drinks/Week Comments Yes 0 (1 standard drink = 0.6 oz pur e alcohol) occ--2 per month Sex and Gender Information Value Date Recorded Sex Assigned at Female 12/12/2019 6:30 PM PETROLEUM ANALYST Gender Identity Female 12/12/2019 6:30 PM PETROLEUM ANALYST Sexual Orientation Straight 04/04/2021 12 :18 PM CDT Travel History Travel Start Travel End [place] 12/06/2023 12/12/2023 documented as of this encounter Plan of Treatment Upcoming Encounters Date Type Department Care Team (Late st Contact Info) Description 03/19/2024 3:30 PM CDT Office Visit [facility] Specialty [facility] [address] [facility] 200 [place] [phone] Elmer Paul MD [address] [place] [address] 04/16/2024 8:30 AM CDT Lab [facility] Heart [facility] [address] [facility] [address] [place] [phone] 04/20/2024 8:45 AM CDT Office Visit [facility] Heart [facility] [address] [facility] [address] [place] [phone] Lavern Pope MD [address] [facility] 275 [place] [address] documented as of this encounter Visit Diagnoses Not on filedocumented in this encounter Additional Health Concerns Infection Onset Date Last Indicated Resolved Time Rule Out COVID-19 01/11/2021 01/11/2021 01/11/2021 9:48 PM PETROLEUM ANALYST documented as of this encounter Care Teams Medical Lab Scientist Relationship Specialty Start Date End Date Carey Vuong MD [address] [place] [address] [place] [address] PCP - General 01/15/02 Caery Vuong MD [address] [place] [address] [place] [address] PCP - Assigned PCP 01/13/17 02/02/19 Carey Vuong MD [address] [place] [address] [place] [address] Assigned PCP 01/13/17 12/16/20 Mehreen Scott MD [address] [place] [address] trustee of estate 12/15/19 Lavern Gonzalez MD [address] [place] [address] 394 [place] [address] Assigned Surgical Provider 09/22/20 04/07/21 [place] [address] [place] [address] Assigned PCP 12/17/20 02/21/21 Carey Vuong MD [address] [facility] [place] [address] Assigned PCP 02/22/21 Lavern Gonzalez MD [address] [facility] 394 [place] [address] Assigned Surgical Provider 04/29/21 11/03/21 Prema Hitchcock PA-C [address] [place] [address] Assigned Surgical Provider 11/04/21 Chidi Puckett MD [address] [place], [place] [address] Assigned Sleep Provider 02/17/22 10/31/23 Harriet Lindsay Personal Advocate & Liaison (PAL) 06/17/22 Aisha Murdock PA-C [facility] [address] [place] [address] Assigned Neuroscience Provider 06/08/22 11/28/23 Lavern Pope MD [address] [place] [address] Cardiovascular Disease 11/11/22 Lavern Pope MD [address] [place] [address] Assigned Heart and Vascular Provider 11/16/22 Elmer Paul MD [address] [place] [address] Allergy & Immunology 02/17/23 Elmer Paul MD [address] , [facility] 200 [place] [address] Assigned Allergy Provider 04/26/23 Batool Torres, VAT TENDER [address] [facility] [place] [address] Nurse Practitioner Pulmonary Disease 08/11/23 [place] [address] [place] [address] Nurse Practitioner Nurse Practitioner 10/29/23 Batool Torres, VAT TENDER [address] [facility] [place] [address] Assigned Pulmonology Provider 12/25/23 documented as of this encounter
--- OUTSIDE RECORDS SUMMARY | 2023-12-29 23:18 | XMS_ITS | Encounter Summary ---
Author Name Unknown Organization [place] Address [address] [place] [address] Care Team Providers Care Stoker Mechanic Name Role Phone Carey Vuong MD Primary Care Provider [phone] Carey Vuong MD Unavailable [phone] Carey Vuong MD Unavailable [phone] Mehreen Scott MD Unavailable [phone] Lavern Gonzalez MD Unavailable [phone] Terry Romano MD Unavailable Carey Vuong MD Unavailable [phone] Lavern Gonzalez MD Unavailable [phone] Prema Hitchcock-C Unavailable [phone] Chidi Puckett MD Harriet Lindsay Unavailable Unavailable Aisha Murdock PA-C Unavailable [phone] Lavern Pope MD Unavailable [phone] Lavern Pope MD Unavailable [phone] Elmer Paul MD Unavailable Elmer Paul MD Unavailable Batool Torres DOUBLE NEEDLE STITCHER Unavailable [phone] Marlene Benoit DOUBLE NEEDLE STITCHER Unavailable [phone] Batool Torres DOUBLE NEEDLE STITCHER Unavailable Encounter Details Date Type Department Care Team (Late st Contact Info) Description 12/03/2012 MyC Medical Advice Initial Department [facility] Social History Tobacco Use Types Packs/Day Years Used Date Smoking Tobacco: Former Cigarettes 0.5 10 Q uit: 08/01/2012 Smokeless Tobacco: Never Alcohol Use Standard Drinks/Week Comments Yes 0 (1 standard drink = 0.6 oz pur e alcohol) occ--2 per month Sex and Gender Information Value Date Recorded Sex Assigned at Female 12/12/2019 6:30 PM OPERATIONS PLANT ATTENDANT Gender Identity Female 12/12/2019 6:30 PM OPERATIONS PLANT ATTENDANT Sexual Orientation Straight 04/04/2021 12 :18 PM CDT Travel History Travel Start Travel End [place] 12/06/2023 12/12/2023 documented as of this encounter Plan of Treatment Upcoming Encounters Date Type Department Care Team (Late st Contact Info) Description 03/19/2024 3:30 PM CDT Office Visit [facility] Specialty [facility] [address] [facility] [address] [place] [phone] Elmer Paul MD [address] [facility] 200 [place] [address] 04/16/2024 8:30 AM CDT Lab [facility] Heart [facility] [address] [facility] [address] [place] [phone] 04/20/2024 8:45 AM CDT Office Visit [facility] Heart [facility] [address] [facility] [address] [place] [phone] Lavern Pope MD [address] [facility] [address] [place] [address] documented as of this encounter Visit Diagnoses Not on filedocumented in this encounter Additional Health Concerns Infection Onset Date Last Indicated Resolved Time Rule Out COVID-19 01/11/2021 01/11/2021 01/11/2021 9:48 PM OPERATIONS PLANT ATTENDANT documented as of this encounter Care Teams Stoker Mechanic Relationship Specialty Start Date End Date Carey Vuong MD [address] [place] [address] [place] [address] PCP - General 01/15/02 Carey Vuong MD [address] [place] [address] [place] [address] PCP - Assigned PCP 01/13/17 02/02/19 Carey Vuong MD [address] [place] [address] [place] [address] Assigned PCP 01/13/17 12/16/20 Mehreen Scott MD [facility] [phone] clinical academic allergist 12/15/19 Lavern Gonzalez MD [address] [place] [address] 394 [place] [address] Assigned Surgical Provider 09/22/20 04/07/21 [place] [address] [place] [address] Assigned PCP 12/17/20 02/21/21 Carey Vuong MD [address] [place] [address] [place] [address] Assigned PCP 02/22/21 Lavern Gonzalez MD [address] [facility] 394 [place], [place] [address] Assigned Surgical Provider 04/29/21 11/03/21 Prema Hitchcock PA-C [address] [place] [address] Assigned Surgical Provider 11/04/21 Chidi Puckett MD [address] [place] [address] Assigned Sleep Provider 02/17/22 10/31/23 Harriet Lindsay Personal Advocate & Liaison (PAL) 06/17/22 Aisha Murdock PA-C [facility] [address] [place] [address] Assigned Neuroscience Provider 06/08/22 11/28/23 Lavern Pope MD [address] [facility] [address] [place] [address] Cardiovascular Disease 11/11/22 Lavern Pope MD [address] [place] [address] Assigned Heart and Vascular Provider 11/16/22 Elmer Paul MD [address] [place], [place] [address] Allergy & Immunology 02/17/23 Elmer Paul MD [address] [facility] [address] , [facility] 200 [place] [address] Assigned Allergy Provider 04/26/23 Batool Torres, DOUBLE NEEDLE STITCHER [address] [facility] [place] [address] Nurse Practitioner Pulmonary Disease 08/11/23 [place] [address] [address] [place] [address] Nurse Practitioner Nurse Practitioner 10/29/23 Batool Torres, ZENOBIA [address] [facility] [place] [address] Assigned Pulmonology Provider 12/25/23 documented as of this encounter
--- OUTSIDE RECORDS SUMMARY | 2023-12-29 23:18 | XMS_ITS | Encounter Summary ---
Author Name Unknown Organization [facility] Address [address] [place] [address] Care Team Providers Care Payroll Master Name Role Phone Carey Vuong MD Primary Care Provider [phone] Carey Vuong MD Unavailable [phone] Carey Vuong MD Unavailable [phone] Mehreen Scott MD Unavailable [phone] Lavern Gonzalez MD Unavailable [phone] Terry Romano MD Unavailable Carey Vuong MD Unavailable [phone] Lavern Gonzalez MD Unavailable [phone] Prema Hitchcock-C Unavailable [phone] Chidi Puckett MD Harriet Lindsay Unavailable Unavailable Aisha Murdock PA-C Unavailable +[phone] Lavern Pope MD Unavailable [phone] Lavern Pope MD Unavailable [phone] Elmer Paul MD Unavailable Elmer Paul MD Unavailable [phone] Batool Torres DISPATCHER CHIEF COAL SLURRY Unavailable CyMarlene Steinberg Randee DISPATCHER CHIEF COAL SLURRY Unavailable Batool Torres DISPATCHER CHIEF COAL SLURRY Unavailable Encounter Details Date Type Department Care Team (Late st Contact Info) Description 12/07/2012 [facility] Medical Advice [facility] [address] [place] [address] [place] [phone] Carey Vuong MD [address] [facility] [place] [address] Social History Tobacco Use Types Packs/Day Years Used Date Smoking Tobacco: Former Cigarettes 0.5 10 Q uit: 08/01/2012 Smokeless Tobacco: Never Alcohol Use Standard Drinks/Week Comments Yes 0 (1 standard drink = 0.6 oz pur e alcohol) occ--2 per month Sex and Gender Information Value Date Recorded Sex Assigned at Female 12/12/2019 6:30 PM CUSTOMER SERVICE TELLER Gender Identity Female 12/12/2019 6:30 PM CUSTOMER SERVICE TELLER Sexual Orientation Straight 04/04/2021 12 :18 PM CDT Travel History Travel Start Travel End [place] 12/06/2023 12/12/2023 documented as of this encounter Plan of Treatment Upcoming Encounters Date Type Department Care Team (Late st Contact Info) Description 03/19/2024 3:30 PM CDT Office Visit [facility] Specialty [facility] [address] [facility] [address] [place] [phone] Elmer Paul MD [address] [facility] [address] [place] [id number] 04/16/2024 8:30 AM CDT Lab [facility] [address] [facility] [address] [place] [phone] 04/20/2024 8:45 AM CDT Office Visit [facility] Heart [facility] [address] [facility] [address] [place] [phone] Lavern Pope MD [address] [facility] [address] [place] [id number] documented as of this encounter Visit Diagnoses Not on filedocumented in this encounter Additional Health Concerns Infection Onset Date Last Indicated Resolved Time Rule Out COVID-19 01/11/2021 01/11/2021 01/11/2021 9:48 PM CUSTOMER SERVICE TELLER documented as of this encounter Care Teams Payroll Master Relationship Specialty Start Date End Date Carey Vuong MD [address] [place] [address] [place] [phone] PCP - General 01/15/02 Carey Vuong MD [address] [place] [address] [place] [address] PCP - Assigned PCP 01/13/17 02/02/19 Carey Vuong MD [address] [place] [address] [place] [id number] Assigned PCP 01/13/17 12/16/20 Mehreen Scott MD [address] [place] [phone] pathology technician 12/15/19 Lavern Gonzalez MD [address] [facility] [address] [place], [place] [address] Assigned Surgical Provider 09/22/20 04/07/21 [place] [address] [place] [address] Assigned PCP 12/17/20 02/21/21 Carey Vuong MD [address] [facility] [address] Assigned PCP 02/22/21 Lavern Gonzalez MD [address] [facility] [address] [place], [place] [address] Assigned Surgical Provider 04/29/21 11/03/21 Prema Hitchcock PA-C [address] [place] [address] Assigned Surgical Provider 11/04/21 Chidi Puckett MD [address] [place] [address] Assigned Sleep Provider 02/17/22 10/31/23 Harriet Lindsay Personal Advocate & Liaison (PAL) 06/17/22 Aisha Murdock PA-C [facility] [address] [place] [address] Assigned Neuroscience Provider 06/08/22 11/28/23 Lavern Pope MD [address] [place] [address] Cardiovascular Disease 11/11/22 Lavern Pope MD [address] [place] [address] Assigned Heart and Vascular Provider 11/16/22 Elmer Paul MD [address] [place] [phone] Allergy & Immunology 02/17/23 Elmer Paul MD [address] [place] [phone] Assigned Allergy Provider 04/26/23 Batool Torres, ZENOBIA [address] [facility] [place] [address] Nurse Practitioner Pulmonary Disease 08/11/23 [place] [address] [address] [place] [address] Nurse Practitioner Nurse Practitioner 10/29/23 Batool Torres NP [address] [facility] [place] [address] Assigned Pulmonology Provider 12/25/23 documented as of this encounter
--- OUTSIDE RECORDS SUMMARY | 2023-12-29 23:19 | XMS_ITS | Encounter Summary ---
Author Name Unknown Organization [facility] Address [address] [place] [address] Care Team Providers Care Embedded Systems Developer Name Role Phone Carey Vuong MD Primary Care Provider [phone] Carey Vuong MD Unavailable [phone] Carey Vuong MD Unavailable [phone] Mehreen Scott MD Unavailable [phone] Lavern Gonzalez MD Unavailable [phone] Terry Romano MD Unavailable Carey Vuong MD Unavailable [phone] Lavern Gonzalez MD Unavailable [phone] Prema Hitchcock-C Unavailable [phone] Chidi Puckett MD Harriet Lindsay Unavailable Unavailable Aisha Murdock PA-C Unavailable [phone] Lavern Pope MD Unavailable [phone] Lavern Pope MD Unavailable [phone] Elmer Paul MD Unavailable Elmer Paul MD Unavailable [phone] Batool Torres TRADE UNION SECRETARY Unavailable [phone] Marlene Benoit Randee TRADE UNION SECRETARY Unavailable Batool Torres TRADE UNION SECRETARY Unavailable Encounter Details Date Type Department Care Team (Late st Contact Info) Description 10/09/2010 [facility] Medical Advice [facility] [address] [place] [address] [place] [phone] [facility] Social History Tobacco Use Types Packs/Day Years Used Date Smoking Tobacco: Every Day Cigarettes 0.5 10 Alcohol Use Standard Drinks/Week Comments Yes 0 (1 standard drink = 0.6 oz pur e alcohol) occ--2 per month Sex and Gender Information Value Date Recorded Sex Assigned at Female 12/12/2019 6:30 PM AIX ARCHITECT Gender Identity Female 12/12/2019 6:30 PM AIX ARCHITECT Sexual Orientation Straight 04/04/2021 12 :18 PM CDT Travel History Travel Start Travel End [place] 12/06/2023 12/12/2023 documented as of this encounter Plan of Treatment Upcoming Encounters Date Type Department Care Team (Late st Contact Info) Description 03/19/2024 3:30 PM CDT Office Visit [facility] 65[address] [facility] 200 [place] [phone] Elmer Paul MD [address] [facility] 200 [place] [phone] 04/16/2024 8:30 AM CDT Lab [facility] [address] [facility] [address] [place] [phone] 04/20/2024 8:45 AM CDT Office Visit [facility] Heart [facility] [address] [facility] [address] [place] [phone] Lavern Pope MD [address] [facility] [address] [place] [address] documented as of this encounter Visit Diagnoses Not on filedocumented in this encounter Additional Health Concerns Infection Onset Date Last Indicated Resolved Time Rule Out COVID-19 01/11/2021 01/11/2021 01/11/2021 9:48 PM AIX ARCHITECT documented as of this encounter Care Teams Embedded Systems Developer Relationship Specialty Start Date End Date Carey Vuong MD [address] [place] [address] [place] [address] PCP - General 01/15/02 Carey Vuong MD [address] [place] [address] [place] [address] PCP - Assigned PCP 01/13/17 02/02/19 Carey Vuong MD [address] [place] [address] [place] [address] Assigned PCP 01/13/17 12/16/20 Mehreen Scott MD [address] [place] [address] [place] [phone] hog ribber 12/15/19 Lavern Gonzalez MD [address] [place] [address] [address] [place] [address] Assigned Surgical Provider 09/22/20 04/07/21 [place] [address] [place] [address] Assigned PCP 12/17/20 02/21/21 Carey Vuong MD [address] [place] [address] [place] [address] Assigned PCP 02/22/21 Lavern Gonzalez MD [address] [facility] [address] [place] [address] Assigned Surgical Provider 04/29/21 11/03/21 Prema Hitchcock PA-C [address] [place] [address] Assigned Surgical Provider 11/04/21 Chidi Puckett MD [address] [place] [address] Assigned Sleep Provider 02/17/22 10/31/23 Harriet Lindsay Personal Advocate & Liaison (PAL) 06/17/22 Aisha Murdock PA-C [facility] [address] [place] [phone] Assigned Neuroscience Provider 06/08/22 11/28/23 Lavern Pope MD [address] [place] [address] Cardiovascular Disease 11/11/22 Lavern Pope MD [address] [facility] [address] [place] [address] Assigned Heart and Vascular Provider 11/16/22 Elmer Paul MD [address] [place] [address] Allergy & Immunology 02/17/23 Elmer Paul MD [address], [facility] 200 [place] [address] Assigned Allergy Provider 04/26/23 Batool Torres, TRADE UNION SECRETARY [address] [facility] [place] [address] Nurse Practitioner Pulmonary Disease 08/11/23 [place] [address] [place] [address] Nurse Practitioner Nurse Practitioner 10/29/23 Batool Torres, TRADE UNION SECRETARY [address] [place] [address] Assigned Pulmonology Provider 12/25/23 documented as of this encounter
--- OUTSIDE RECORDS SUMMARY | 2023-12-29 23:19 | XMS_ITS | Continuity of Care Document ---
Author Name Unknown Address [address] [place] [address] Phone [phone] Organization [facility] AUDIO RECORDING ENGINEER, [id number] Address [address] [place] [address] [address] [place] [address] Assessment Encounter Date Assessment Date Assessment LastModified by Organization Details LastModified Time 12/18/2023 12/18/2023 48 yo female here for urinary symptoms as well as vaginal odor I spent a total of 20 minutes providing care for this patient including: preparing to see the patient, obtaining a medical history, completing a medically appropriate physical exam, completing documentation of visit information and plans in the EMR, counseling the patient and/or caregiver regarding her diagnosis, treatment options and follow up plans, as well as any necessary communication of subsequent test results to the patient, reviewing test results [place] Not available 12/19/2023 22:56:10 Plan of Treatment Reminders Order Date Submit Date Provider Last Modified By Organization Details Last Modified Time Details Appointments G_OFFICE VISIT 2023 02:30P M Dr. Peggy Liang Not available Not available Not available G_OB US 2023 12:45P M [id number] [email or web address] Not available Not available Not available G_OFFICE VISIT 2023 01:30P M LILLIE AVILA DO Not available Not available Not available G_OB VISIT 2023 02:00P M Dr. Peggy Liang Not available Not available Not available Lab urinalysi s, dipstick, auto 2023 024 [place] [id number] rubina_nathalia, [address], [place], [address], 12/18/2023 18:14:11 culture, urine 2023 024 [facility], [address], [id number], [place], [address], 12/20/2023 06:57:01 wet mount panel, vaginal fluid 2023 024 [place] [id number] oneill, [address], [facility] [address], [place], [address], 12/19/2023 22:47:29 Referral None recorded. Procedures None recorded. Surgeries None recorded. Imaging None recorded. Medication Orders metronida zole 500 mg tablet 2023 024 [id number], [address], [place], [place], [id number], 12/18/2023 16:52:31 Patient TargetsNo targets recorded. Patient Instructions Encounter Date Encounter Id Patient Instructions Last Modified By Organization Details Last Modified Time 12/18/2023 [id number] follow up prn [email or web address] Not available 0 12/19/2023 23:05:32 Reason for Referral Endocrinology Referral for H igh hemoglobin A1c level Referring Physician: Mehreen Scott, AUDIO RECORDING ENGINEER, Encounter Date: 01/09/2023 Results Created Date Observation Date Name Description Value Unit Range Abnormal Flag LastModifiedBy Organization Detail LastModifiedTime 12/18/19 24 12/18/2023 urina lysis , dipst ick, auto Unknown Analyte Clean Catch Not Available [id number] oneill [address] [place] [address], [place], [address], 12/18/2023 16:21:42 12/18/19 24 12/18/2023 urina lysis , dipst ick, auto Unknown Analyte negati ve Not Available [id number] oneill [address] [facility] [address], [place], [address], 12/18/2023 16:21:42 12/18/19 24 12/18/2023 urina lysis , dipst ick, auto Unknown Analyte negati ve Not Available [id number] oneill [address] [facility] [address], [place], [address], 12/18/2023 16:21:42 12/18/19 24 12/18/2023 urina lysis , dipst ick, auto Unknown Analyte negati ve Not Available [id number] oneill [address] [facility] [address], [place], [address], 12/18/2023 16:21:42 12/18/19 24 12/18/2023 urina lysis , dipst ick, auto Unknown Analyte 1.015 Not Available [id number] alfred [address] [facility] [address], [place], [address], 12/18/2023 16:21:42 12/18/19 24 12/18/2023 urina lysis , dipst ick, auto Unknown Analyte trace Not Available [id number] alfred [address] [address], [place], [address], 12/18/2023 16:21:42 12/18/19 24 12/18/2023 urina lysis , dipst ick, auto Unknown Analyte 6.0 Not Available [id number] alfred [address] [facility] [address], [place], [address], 12/18/2023 16:21:42 12/18/19 24 12/18/2023 urina lysis , dipst ick, auto Unknown Analyte negati ve Not Available [id number] oneill [address] [facility] [address], [place], [address], 12/18/2023 16:21:42 12/18/19 24 12/18/2023 urina lysis , dipst ick, auto Unknown Analyte 0.2 Not Available Rashmi alfred [address] [facility] [address], [place], [address], 12/18/2023 16:21:42 12/18/19 24 12/18/2023 urina lysis , dipst ick, auto Unknown Analyte negati ve Not Available [id number] oneill [address] [facility] [address], [place], [address], 12/18/2023 16:21:42 12/18/19 24 12/18/2023 urina lysis , dipst ick, auto Unknown Analyte negati ve Not Available [id number] oneill [address] [address], [place], [address], 12/18/2023 16:21:42 12/18/19 24 12/18/2023 urina lysis , dipst ick, auto Unknown Analyte yellow Not Available [id number] alfred [address] [address], [place], [address], 12/18/2023 16:21:42 12/18/19 24 12/18/2023 urina lysis , dipst ick, auto Unknown Analyte clear Not Available [id number] alfred [address] [address], [place], [address], 12/18/2023 16:21:42 12/19/19 24 12/19/2023 wet mount panel , vagin al fluid vaginal pH 4.5 negat macarena < or = to 4.5 Not Available Jethro oneill [address] [facility] [address], [place], [address], 12/19/2023 22:46:58 12/19/19 24 12/19/2023 wet mount panel , vagin al fluid clue cells >20% negat macarena <20% Not Available [id number] oneill [address] [facility] [address], [place], [address], 12/19/2023 22:46:58 12/19/19 24 12/19/2023 wet mount panel , vagin al fluid trichomonads ngaitv e negat macarena Not Available [id number] [facility] [address] [facility] [address], [place], [address], 12/19/2023 22:46:58 12/19/19 24 12/19/2023 wet mount panel , vagin al fluid yeast negati ve negat macarena negati ve/pos itive Not Available [id number]_svfbaln [facility] [address] [address], [place], [address], 12/19/2023 22:46:58 Result Notes None recorded. Problems Name Status Onset Date Resolution Date Notes Provider Name and Address Organization Details Recorded Time Asthma Active Not Available [facility] 07/10/2020 01:08:47 Notes:07/10/2020: *Problem N bradly: Tobacco *Problem Status: active Problem Notes None recorded. Procedures Surgical History Date Name Laterality Status Provider Name and Address Organization Details Recorded Time 07/25/20 23 Date of Last Mammogram completed Cristopher feliz, [place] - [facility] [employer] 07/28/2023 08:59:23 05/27/20 22 Date of Last Pap Smear completed Agnes feliz, [place] - [facility] [employer] 06/06/2022 16:28:21 03/25/20 22 Date of Last Colonoscopy completed Yana feliz [place] - [facility] [employer] 01/07/2023 14:34:10 03/25/20 22 Colonoscopy completed Yana feliz [place] - [facility] [employer] 01/07/2023 14:34:22 01/05/20 21 LAPAROSCOPIC OVARIAN CYSTECTOMY (SURG) [place] [id number] [facility],[address], [place], [address], [place] [facility] [employer] 01/24/2021 15:29:36 08/31/20 18 total [place] [id number] [facility],[address], [place], [address], [place] [facility] [employer] 12/29/2020 18:17:15 11/17/20 17 colposcopy [place] [id number] [address] [facility],[address], [place], [address], [place] [facility] [employer] 12/29/2020 18:17:03 12/01/19 12 destruction of lesion [place] [id number] [facility],[address], [place], [address], [facility] - [facility] [employer] 12/29/2020 18:17:34 01/06/20 02 Caesarean Section completed Yana Barry null, [place] [facility] [employer] 01/07/2023 14:34:22 12/01/19 02 [place] [id number] [facility],[address], [place], [address], [facility] - [facility] [employer] 12/29/2020 18:17:20 abdominoplasty completed Yanaemily Mckenziespeth null, [place] - [facility] [employer] 01/07/2023 14:34:22 arthroscopically aided anterior cruciate ligament reconstruction completed Yana Humphreys null, [place] [facility] [employer] 01/07/2023 14:34:22 Tonsillectomy completed Yana Asha null[place] [facility] [employer] 01/07/2023 14:34:22 Orthopedic Surgery completed Yana Asha null[place] [facility] [employer] 01/07/2023 14:34:22 Abdominoplasty completed Yana Humphreys null[place] [facility] [employer] 01/07/2023 14:34:22 Imaging Results None recorded. Procedure Notes None recorded. Medical Equipment None Reported. Allergies Allergen ID Allergen Name Allergen Category Reaction Reaction Severity Criticality Documentation Date Start Date Code Code System Note Provider Name and Address Organization Details Recorded Time 865616 Medicinal product containin g penicilli n and acting as antibacte rial agent (product) medicatio n Not available Not available Not available 07/07/2020 06088 05 SNOMED Dennise Miramontes (SEVERINO) [place], [place] - [facility] [employer] REC[employer] 1 14:17:02 Medications Name Sig Start Date Stop Date Status Note LastModified by Organization Details LastModified Time fluconazole 100 mg tablet TAKE 2 TABLETS TODAY THEN ONE TABLET FOR 7 DAYS active Not Available Not Available No t Available methocarbam ol 500 mg tablet active Not Available Not Available Not Available nystatin 100,000 unit/mL oral suspension active Not Available Not Available N ot Available prednisone 10 mg tablet 12/27 completed Not Available Not Available Not Available atorvastati n 20 mg tablet active Not Available Not Available Not Available citalopram 40 mg tablet TAKE 1 TABLET BY MOUTH DAILY active Not Available Not Available No t Available azithromyci n 250 mg tablet active Not Available Not Available Not Available fluconazole 150 mg tablet TAKE 1 TABLET BY MOUTH EVERY DAY active Not Available Not Available No t Available citalopram 10 mg tablet active Not Available Not Available Not Available promethazin e 12.5 mg tablet TAKE 1 TABLET BY MOUTH UP TO TWICE DAILY BEFORE MEALS NEEDED active Not Available Not Available No t Available naltrexone 50 mg tablet TAKE ONE-HALF TO 1 TABLET BY MOUTH DAILY FOR 1 WEEK THEN INCREASE TO ONE-HALF TABLET TWICE DAILY active Not Available Not Available No t Available phenazopyri dine 200 mg tablet TAKE 1 TABLET BY MOUTH THREE TIMES DAILY FOR 3 DAYS 10/18 completed Not Available Not Available Not Available metronidazo le 0.75 % (37.5 mg/5 gram) vaginal gel INSERT 1 APPLICATO RFUL VAGINALLY EVERY DAY FOR 5 DAYS active Not Available Not Available No t Available prednisone 20 mg tablet active Not Available Not Available Not Available topiramate 25 mg tablet active Not Available Not Available Not Available metronidazo le 500 mg tablet TAKE 1 TABLET BY MOUTH TWICE DAILY FOR 7 DAYS active Not Available Not Available No t Available ciprofloxac in 500 mg tablet TAKE 1 TABLET BY MOUTH TWICE DAILY active Not Available Not Available No t Available sulfamethox azole 800 mg-trimetho prim 160 mg tablet TAKE 1 TABLET BY MOUTH TWICE DAILY active Not Available Not Available No t Available omeprazole 40 mg capsule,del ayed release TAKE 1 CAPSULE BY MOUTH DAILY 30 TO 60 MINUTES BEFORE A MEAL active Not Available Not Available No t Available aspirin 81 mg tablet,yolanda yed release TAKE 1 TABLET BY MOUTH TWICE DAILY WITH MEALS FOR 2 WEEKS FOR BLOOD CLOT PREVENTIO N active Not Available Not Available No t Available triamcinolo ne acetonide 0.1 % topical cream APPLY TOPICALLY TWICE DAILY NEEDED FOR IRRITATIO N UP TO 1 WEEK AT A TIME active Not Available Not Available No t Available prednisolon e acetate 1 % eye drops,suspe nsion SHAKE LIQUID AND INSTILL 1 DROP IN LEFT EYE FOUR TIMES DAILY active Not Available Not Available No t Available lorazepam 0.5 mg tablet active Not Available Not Available Not Available dicyclomine 20 mg tablet 10/18 completed Not Available Not Available Not Available hyoscyamine 0.[address] 1 TO 2 TABLETS UNDER THE TONGUE EVERY 4 HOURS NEEDED FOR CRAMPING. MAX DOSE 12 TABS PER DAY active Not Available Not Available No t Available omeprazole 20 mg capsule,del ayed release TAKE 1 CAPSULE BY MOUTH TWICE DAILY 30 MINUTES BEFORE BREAKFAST AND DINNER active Not Available Not Available No t Available norethindro ne acetate 5 mg tablet TAKE 1 TABLET BY MOUTH DAILY active Not Available Not Available No t Available azelastine 137 mcg (0.1 %) nasal spray aerosol USE 1 SPRAY IN EACH NOSTRIL AT BEDTIME active Not Available Not Available No t Available methylpredn isolone 4 mg tablets in a dose pack FOLLOW PACKAGE DIRECTION S active Not Available Not Available No t Available albuterol sulfate HFA 90 mcg/actuati on aerosol inhaler INHALE 2 PUFFS BY MOUTH EVERY 6 HOURS active Not Available Not Available No t Available ipratropium bromide 42 mcg (0.06 %) nasal spray USE 2 SPRAYS IN EACH NOSTRIL FOUR TIMES DAILY 06/09 completed Not Available Not Available Not Available norethindro ne (contracept macarena) 0.35 mg tablet TAKE 1 TABLET BY MOUTH DAILY 10/18 completed Not Available Not Available Not Available ondansetron 4 mg disintegrat ing tablet 05/27 completed Not Available Not Available Not Available fluticasone propionate 50 mcg/actuati on nasal spray,suspe nsion SHAKE LIQUID AND USE 2 SPRAYS IN EACH NOSTRIL EVERY DAY active Not Available Not Available No t Available doxycycline hyclate 100 mg tablet 01/07 completed Not Available Not Available Not Available dicyclomine 10 mg capsule TAKE 1 CAPSULE BY MOUTH THREE TIMES DAILY NEEDED 05/27 completed Not Available Not Available Not Available oxycodone 5 mg tablet TAKE 1 TO 2 TABLETS BY MOUTH EVERY 4 TO 6 HOURS NEEDED FOR PAIN active Not Available Not Available No t Available hydroxyzine pamoate 25 mg capsule TAKE 1 CAPSULE BY MOUTH EVERY 6 HOURS NEEDED FOR MUSCLE SPASMS OR ITCHING OR ANXIETY active Not Available Not Available No t Available Restasis 0.05 % eye drops in a dropperette INSTILL 1 DROP INTO EACH EYE TWICE DAILY FOR DRY EYES. active Not Available Not Available No t Available bupropion HCl XL 300 mg 24 hr tablet, extended release active Not Available Not Available Not Available bupropion HCl XL 150 mg 24 hr tablet, extended release 10/18 completed Not Available Not Available Not Available topiramate 50 mg tablet active Not Available Not Available Not Available nitrofurant oin monohydrate /macrocryst als 100 mg capsule TK 1 C PO BID 01/07 completed Not Available Not Available Not Available levalbutero l HFA 45 mcg/actuati on aerosol inhaler INHALE 2 PUFFS INTO THE LUNGS EVERY 4 HOURS NEEDED FOR SHORTNESS OF BREATH OR DIFFICULT BREATHING OR WHEEZING active Not Available Not Available No t Available citalopram 12/27 completed Not Available Not Available Not Available omeprazole 12/27 completed Not Available Not Available Not Available Chantix 1 mg tablet Take 1 tablet twice a day by oral route. 10/18 completed Not Available Not Available Not Available Symbicort 160 mcg-4.5 mcg/actuati on HFA aerosol inhaler active Not Available Not Available Not Available GaviLyte-G 236 gram-22.74 gram-6.74 gram-5.86 gram oral solution DRINK 1 LITER TODAY AND ANOTHER 1 LITER A DAY UNTIL CLEAR. active Not Available Not Available No t Available Zyrtec 10 mg capsule Take by oral route. active Not Available Not Available No t Available Rosaura Allergy 60 mg tablet Take 1 tablet twice a day by oral route. active Not Available Not Available No t Available Linzess 145 mcg capsule TAKE 1 CAPSULE BY MOUTH EVERY DAY 30 MINUTES BEFORE FIRST MEAL OF THE DAY ON AN EMPTY STOMACH active Not Available Not Available No t Available Linzess 290 mcg capsule TAKE 1 CAPSULE BY MOUTH EVERY DAY 30 MINUTES BEFORE FIRST MEAL OF THE DAY ON AN EMPTY STOMACH active Not Available Not Available No t Available Arnuity Ellipta 100 mcg/actuati on powder for inhalation INHALE 1 PUFF INTO THE LUNGS DAILY 06/09 completed Not Available Not Available Not Available Flonase Allergy Relief 05/27 completed Not Available Not Available Not Available Linzess 72 mcg capsule TAKE 1 CAPSULE BY MOUTH EVERY DAY 30 MINUTES BEFORE FIRST MEAL OF THE DAY ON AN EMPTY STOMACH active Not Available Not Available No t Available fluticasone 113 mcg-salmete rol 14 mcg/actuati on breath activated powdr INHALE 1 PUFF INTO THE LUNGS TWICE DAILY active Not Available Not Available No t Available fluticasone 232 mcg-salmete rol 14 mcg/actuati on breath activated powdr INHALE 1 PUFF INTO THE LUNGS TWICE DAILY active Not Available Not Available No t Available Vitals Date Recorded Body height Systolic blood pressure Diastolic blood pressure Provider Name and Address Organization Details Last Updated DateTime 12/18/2023 165.1 cm 120 mm[Hg] 80 mm[Hg] Yana feliz, [place] - [facility] [employer] REC[employer] 12/18/2023 16:21:33 Social History Question Answer Notes LastModified by Organizat ion Details LastModified Time Tobacco Smoking Status Former Smoker quit 12/2022 [place] [address] [facility],[address], [place], [address], [place] [facility] [employer] 06/09/2023 16:58:47 Do You Have An Advance Directive? No Information not available 12/29/2023 What Is Your Level Of Alcohol Consumption? None Former Information not available 12/19/2023 What Is Your Level Of Caffeine Consumption? 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 Information not available 01/07/2023 How Much Tobacco Do You Smoke? No Information not available 01/07/2023 Do You Use Any Illicit Or Recreational Drugs? No Information not available 05/27/2022 Sex: Female Functional Status Question Answer Note LastModified by Organization D etails LastModified Time What is your exercise level? None Information not available 06/09/2023 Mental Status None recorded. Family History Relationship Description Onset Age of this Age Resolved Age Notes Father Family history of mental disorder Father Family history of diabetes mellitus Father Depressive disorder 50 73 Father Malignant neoplasm o f skin 65 73 Father Diabetes mellitus 30 73 Paternal Grandfather Family history of stroke Paternal Grandfather Family history of Cardiovascular disease Paternal Grandfather Family history of diabetes mellitus Maternal Grandmother Family history of breast cancer Mother Family history of mental disorder Mother Depressive disorder 30 Maternal Grandfather Family history of diabetes mellitus Paternal Grandmother Family history of diabetes mellitus Paternal Grandmother Family history of Cardiovascular disease Daughter Depressive disorder 15 Medical History Condition Response GI- Hemorrhoids Y Psych- Depression Y Ortho-Chronic Back Pain Y Cardiology- Heart Arrhythmia Y Weight Management/Obesity Y Urology- Recurrent Urinary Tract Infecti ons Y Psych- Anxiety Disorder Y GI- Reflux/Ulcers Y Neurology- Headaches/Migraines Y Cardiology- Heart Disease ENT- Seasonal Allergies/Allergic Rhiniti s Y Ortho- Arthritis Y Urology- Urinary Incontinence Y Pulmonary- Asthma Y Gynecological History Statement/Question Response History of Abnormal PAP Y History of Recurrent Ovarian Cysts Y HPV Test Negative Date of Last Mammogram 07/25/2023 0 Sexually Active Y Age at Menarche: 12 Date of Last Colonoscopy 03/25/2022 0 History of Sexually Transmitted Infectio n N Y HPV Vaccination Complete Diethylstilbestrol (LENO) exp osed daughters of women who took LENO during ? N Current Control Method Progestin O nly Pills Urinary Incontinence Symptoms Y Date of Last Pap Smear 05/27/2022 Obstetrics History GPAL:G 2 P 2 0 0 2 Type Value Multiple Births 0 Full Term 2 Induced 0 Spontaneous 0 Premature 0 Living 2 Ectopics 0 Total 2 Immunizations Vaccine Type Date Status Provider Name and Address Organization Details Recorded Time SARS-COV-2 (COVID-19) vaccine, UNSPECIFIED 03/19/2021 completed Dennise Miramontes ([place]) null, [place] - [facility] [employer] 04/04/2021 14:26:27 SARS-COV-2 (COVID-19) vaccine, UNSPECIFIED 02/19/2021 completed Dennise Miramontes ([place]) null, [place] [facility] [employer] 04/04/2021 14:26:50 Past Encounters Encounter ID Performer Location Encounter Start Date Encounter Closed Date Diagnosis/Indication [id number] JESSICA BACH MD [id number] [facility] [place] [address] 12/18/2023 16:14:10 12/19/2023 15:14:36 Urinary symptoms Bacterial vaginosis Vaginal odor Mixed urinary incontinence Health Concerns Section Related Observation LastModified by Organization Detai ls LastModified Time None Recorded Concern Status LastModified by Organization Details LastModified Time None Recorded Payers Encounter Date Sequence Insurance Name Policy Number Policy Sprague Covered Member ID Sprague Member ID Guarantor Name 12/18/2023 1 [facility] - [facility] ([facility]) [id number] Danielle Garza [id number] Danielle Garza Notes Date Note Type Note Provider Name and Address Organization Details Recorded Time 12/18/2023 text/html HPI Notes: here for bv symptoms last seen 10/2023, dx with yeast and bv on wet prep- had metrogel and diflucan persistent symptoms, no testing, given metrogel notes vaginal smell and vaginal discomfort. Clear discharge. No white clumpy discharge. felt improvement when she was on the meds previously. sx went away for 7 days roughly. urinary issues- urge and stress incontinence. mostly with sneeze/cough IC. previoulsy did pelvic floor PT, no improvement she has been working with GI for constipation, diarrhea, nausea, vomiting. tried linzess, no improvement. going to pelvic floor covering contractor soon, has talked with them about the urinary [place] [address] [facility],[address], [place], [address], [place] [employer] 12/19/2023 23:05:46 OBGyn Episode No OBEpisode recorded.
--- OUTSIDE RECORDS SUMMARY | 2023-12-29 23:19 | XMS_ITS | Encounter Summary ---
Author Name Unknown Organization [facility] Address [address] [place] [address] Care Team Providers Care Drum Barker Operator Name Role Phone Carey Vuong MD Primary Care Provider [phone] Carey Vuong MD Unavailable [phone] Carey Vuong MD Unavailable [phone] Mehreen Scott MD Unavailable [phone] Lavern Gonzalez MD Unavailable [phone] Terry Romano MD Unavailable Carey Vuong MD Unavailable [phone] Lavern Gonzalez MD Unavailable [phone] Prema Hitchcock-C Unavailable [phone] Chidi Puckett MD Harriet Lindsay Unavailable Unavailable Aisha Murdock PA-C Unavailable [phone] Lavern Pope MD Unavailable [phone] Lavern Pope MD Unavailable [phone] Elmer Paul MD Unavailable Elmer Paul MD Unavailable [phone] Batool Torres SURGICAL SERVICES ASSISTANT Unavailable Marlene Benoit SURGICAL SERVICES ASSISTANT Unavailable [phone] Batool Torres SURGICAL SERVICES ASSISTANT Unavailable Encounter Details Date Type Department Care Team (Late st Contact Info) Description 04/02/2011 MyC Medical Advice [facility] [address] [place] [address] [place] [phone] [facility] Social History Tobacco Use Types Packs/Day Years Used Date Smoking Tobacco: Every Day Cigarettes 0.5 10 Smokeless Tobacco: Never Alcohol Use Standard Drinks/Week Comments Yes 0 (1 standard drink = 0.6 oz pur e alcohol) occ--2 per month Sex and Gender Information Value Date Recorded Sex Assigned at Female 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 Gender Identity Female 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 Sexual Orientation Straight 04/04/2021 12 :18 PM CDT Travel History Travel Start Travel End [place] 12/06/2023 12/12/2023 documented as of this encounter Plan of Treatment Upcoming Encounters Date Type Department Care Team (Late st Contact Info) Description 03/19/2024 3:30 PM CDT Office Visit [facility] Specialty [facility] [address] [facility] [address] [place] [phone] Elmer Paul MD [address] [facility] [address] [place] [address] 04/16/2024 8:30 AM CDT Lab [facility] Heart [facility] [address] [facility] [address] [place] [phone] 04/20/2024 8:45 AM CDT Office Visit [facility] Heart [facility] [address] [facility] [address] [place] [phone] Lavern Pope MD [address] [facility] [address] [place] [address] documented as of this encounter Visit Diagnoses Not on filedocumented in this encounter Additional Health Concerns Infection Onset Date Last Indicated Resolved Time Rule Out COVID-19 01/11/2021 01/11/2021 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 documented as of this encounter Care Teams Drum Barker Operator Relationship Specialty Start Date End Date Carey Vuong MD [address] [place] [address] [place] ARNETT [address] PCP - General 01/15/02 Carey Vuong MD [address] [place] [address] [place] [address] PCP - Assigned PCP 01/13/17 02/02/19 Carey Vuong MD [address] [place] [address] [place] ARNETT [address] Assigned PCP 01/13/17 12/16/20 Mehreen Scott MD [address] [place] [phone] test developer 12/15/19 Lavern Gonzalez MD [address] [place] [id number] Assigned Surgical Provider 09/22/20 04/07/21 [place] [address] [place] [address] Assigned PCP 12/17/20 02/21/21 Carey Vuong MD [address] [place] [address] Y[place] ARNETT [address] Assigned PCP 02/22/21 Lavern Gonzalez MD [address] [facility] [address] [place] [address] Assigned Surgical Provider 04/29/21 11/03/21 Prema Hitchcock PA-C [address] [place] [address] Assigned Surgical Provider 11/04/21 Chidi Puckett MD [address] [place], [place] [address] Assigned Sleep Provider 02/17/22 10/31/23 Harriet Lindsay Personal Advocate & Liaison (PAL) 06/17/22 Aisha Murdock PA-C [facility] [address] [place] [id number] Assigned Neuroscience Provider 06/08/22 11/28/23 Lavern Pope MD [address] [place] [id number] Cardiovascular Disease 11/11/22 Lavern Pope MD [address] [place] [address] Assigned Heart and Vascular Provider 11/16/22 Elmer Paul MD [address] [place] [address] Allergy & Immunology 02/17/23 Elmer Paul MD [address] , [facility] [address] [place], [place] [address] Assigned Allergy Provider 04/26/23 Batool Torres, SURGICAL SERVICES ASSISTANT [address] [facility] [place] [address] Nurse Practitioner Pulmonary Disease 08/11/23 [place] [address] [place] [address] Nurse Practitioner Nurse Practitioner 10/29/23 Batool Torres, SURGICAL SERVICES ASSISTANT [address] [facility] [place] [address] Assigned Pulmonology Provider 12/25/23 documented as of this encounter
--- OUTSIDE RECORDS SUMMARY | 2023-12-29 23:19 | XMS_ITS | Data Portability ---
Author Name Unknown Address [address] [place] [address] Phone [phone] Organization [facility] [employer], [id number] Address [address] [place] [address] Assessment Encounter Date Assessment Date Assessment LastModified by Organization Details LastModified Time 10/06/2020 10/06/2020 A: 45 yo w/ vaginal itching, odor, discharge Declines STD testing No s/s UTI P: Discussed common etiologies of vaginitis. Discussed common preventative strategies for vaginitis, including condom use, wearing loose fitting clothing, vaginal probiotics. Will send affirm swab and treat based on results. [email or web address] Not available 10/06/2020 14:22:30 12/27/2020 12/27/2020 45 yo female here for ER follow up for pelvic pain and ovarian cyst. I spent a total of 25 minutes providing care for this patient including: preparing to see the patient, obtaining a medical history, completing a medically appropriate physical exam, completing documentation of visit information and plans in the EMR, counseling the patient and/or caregiver regarding her diagnosis, treatment options and follow up plans, as well as any necessary communication of subsequent test results to the patient, reviewing test results, reviewing medical records. [email or web address] Not available 12/29/2020 18:21:10 01/18/2021 01/18/2021 45 yo female 2 weeks post op after a laparoscopic left ovarian cyst drainage, left paratubal cyst excision and ablation of endometriosis lesions. [email or web address] Not available 01/24/2021 15:25:16 04/17/2021 04/17/2021 Total time spent in reviewing patient's history and outside records, discussion of patient's concerns, examination, interpreting test results, ordering additional tests, counseling with shared decision making, sending prescriptions and documentation was 20 minutes. [email or web address] Not available 05/14/2021 13:47:15 10/18/2021 10/18/2021 Total time spent- Reviewing patient's history, Discussion of pt concerns, Examination /interpreting test results, ordering additional tests, counseling with shared decision [email or web address] documentation: 8min Total time: 21min [email or web address] Not available 10/18/2021 11:06:44 06/09/2023 06/09/2023 48 yo female here for an annual - Encouraged breast self-awareness and recommend yearly mammogram.. - Encouraged regular exercise. - Calcium and vitamin D intake discussed - pap smear: 2021 NILM/HPV neg, rpt in 2026 - colonoscopy- 2021 - contraception: norethindrone acetate -menopausal symptoms none -DEXA at 64 yo [email or web address] Not available 06/23/2023 22:56:19 07/25/2023 07/25/2023 Office visit for evaluation of abdominal pain. Concurrently being evaluated by GI medicine for appropriate breath test, fructose and lactose screening. Trial of Linzess for irritable bowel with constipation. History of endometriosis maintained with daily norethindrone 5 mg tablet. Total time spent in reviewing patient's history and outside records, discussion of patient's concerns, examination, interpreting test results, ordering additional tests, counseling with shared decision making, sending prescriptions if necessary and documentation was 22 minutes. Not available 07/29/2023 18:15:29 10/16/2023 10/16/2023 48 yo female here for vaginal discharge I spent a total of 20 minutes [...] test results to the patient, reviewing test results, reviewing medical records, reviewing imaging [email or web address] Not available 10/16/2023 17:37:11 12/18/2023 12/18/2023 48 yo female here for [...] results to the patient, reviewing test results [email or web address] Not available 12/19/2023 22:56:10 Plan of Treatment Reminders Order Date Submit Date Provider Last Modified By Organization Details Last Modified Time Details Appointments G_OFFICE VISIT 2023 02:30P M Dr. Peggy Liang Not available Not available Not available G_OB US 2023 12:45P M [id number] [email or web address] Not available Not available Not available G_OFFICE VISIT 2023 01:30P M LILLIE AVILA, Not available Not available Not available G_OB VISIT 2023 02:00P M Dr. Peggy Liang Not available Not available Not available Lab urinalysi s, dipstick, auto 2023 024 [email or web address] [id number] [facility], [address], [address], [place], [address], 12/18/2023 18:14:11 culture, urine 2023 024 [facility], [address] [place] [address], [address], [place], [address], 12/20/2023 06:57:01 wet mount panel, vaginal fluid 2023 024 [email or web address] [id number] [facility], [address], [address], [place], [address], 12/19/2023 22:47:29 wet mount panel, vaginal fluid 2022 023 [place] [id number] [facility], [address], [address], [place], [address], 10/16/2023 17:34:08 HbA1c (hemoglob in A1c), blood 2022 023 [facility], [address] [facility], [address], [place], [address], 01/17/2023 12:56:33 TSH, serum or plasma 2022 023 [facility], [address] [facility], [address], [place], [address], 01/07/2023 23:45:20 estradiol , serum 2022 023 [facility], [address] [facility], [address], [place], [address], 01/07/2023 23:45:21 FSH (follicle -stimulat ing hormone), serum 2022 023 [facility], [address] [facility], [address], [place], [address], 01/07/2023 23:45:21 cytology report, thin prep, smear or scraping, cervical or vaginal 2021 022 POTOMAC [facility], [address] [place], [address], 05/29/2022 17:07:56 culture, urine [address] [facility] [facility], [address] , [place], [address], 10/20/2021 16:08:46 urinalysi s, dipstick 2020 021 ginny [id number] [facility] , [address] [facility] [address], [address], [place], [address], 10/18/2021 10:17:53 bacterial vaginosis + vaginitis panel, vaginal 2020 021 [facility] , [address], [address], [place], [address], 10/18/2021 11:15:28 wet mount panel, vaginal fluid 2020 021 [email or web address] [facility] [place] , [address] [place] [address] [address], [address] [facility], [place], [address], 10/18/2021 10:31:14 urinalysi s, dipstick 2020 021 [email or web address] [facility] , [address] [facility] [address], [address] [facility], [place], [address], 04/04/2021 14:59:18 culture, urine 2020 021 [facility], [address] [place], [address], 04/06/2021 09:57:18 hemoglobi n (Hb), fingersti ck, blood 2020 021 [facility] , [address] [place] [address] [address], [address] [facility], [place], [address], 01/18/2021 12:06:10 bacterial vaginosis + vaginitis panel, vaginal 2019 020 LUIGI [facility] , [address] [facility] [address], [address] [facility], [place], [address], 10/06/2020 15:42:11 urinalysi s, dipstick 2019 020 [email or web address] [facility] , [address] [place] [address] [address], [address] [facility], [place], [address], 10/06/2020 14:22:46 Referral None recorded. Procedures None recorded. Surgeries laparosco pic ovarian cystectom y (SURG) 2020 021 [email or web address] Not available 01/02/2021 09:09:14 Imaging US, transvagi nal 2022 023 [email or web address] [id number] [facility], [address], [address], [place], [address], 08/12/2023 13:07:06 Medication Orders metronida zole 500 mg tablet 2023 024 [facility] #54292, [address] [place], [place], [id number], 12/18/2023 16:52:31 Metrogel Vaginal 0.75 % (37.5 mg/5 gram) 2022 023 [facility] #65785, [address] [place], [place], [id number], 10/16/2023 17:33:53 Diflucan 150 mg tablet 2022 023 [facility] #28465, [address] [place], [place], [id number], 10/16/2023 17:33:26 norethind madelyn acetate 5 mg tablet 2022 023 [facility] #16030, [address] [place], [place], [id number], 06/09/2023 16:59:39 norethind madelyn acetate 5 mg tablet 2021 022 [facility] #40558, [address] [place], [place], [id number], 05/27/2022 17:45:15 Cipro 500 mg tablet 2020 021 [facility] #77706, [address] [place], [place], [id number], 10/18/2021 09:15:27 Pyridium 200 mg tablet [email or web address] [facility] #91756, [address], [place], [id number], 10/18/2021 09:16:08 norethind madelyn acetate 5 mg tablet 2020 021 aflemal [facility] #95665, [address], [place], [id number], 04/04/2021 14:25:12 norethind madelyn (contrace ptive) 0.35 mg tablet 2020 021 [facility] #07189, [address], [place], [id number], 10/18/2021 09:15:50 Patient TargetsNo targets recorded. Patient Instructions Encounter Date Encounter Id Patient Instructions Last Modified By Organization Details Last Modified Time 12/18/2023 [id number] follow up prn [email or web address] Not available 0 12/19/2023 23:05:32 10/16/2023 [id number] call if worsenin g or not improving with meds. [email or web address] Not available 10/16/2023 17:37:55 07/25/2023 [id number] Return for pelvi c ultrasound to evaluate the pelvic structures and particularly the ovaries. Further measures to be determined. Discussed laparoscopic evaluation of pelvic pain and potential yield. Call for any change in medical status. Not available 07/29/2023 18:13:50 I discussed with Danielle her clinical presentation and findings on examination. She concurrently has GI symptoms including constipation bloating but also history of endometriosis which could be complicating her clinical picture. She is maintained on norethindrone 5 mg orally daily and has no withdrawal bleeding. For further evaluation, I have recommended a pelvic ultrasound to assess the uterus the endometrium and the ovaries. We also briefly discussed the option of diagnostic laparoscopy to evaluate her pelvic symptoms. Danielle will return for the ultrasound and further measures to be determined based on that study. All questions answered. Not available 07/29/2023 18:15:20 06/09/2023 [id number] -follow up in 1 year for annual exam or sooner with problems [email or web address] Not available 06/23/2023 22:56:40 04/04/2021 [id number] - Discussed possibility of UTI, pylonephritis, or kidney stone - If symptoms continue to worsen, needs to be seen in urgent care or ER. - If UC negative, discussed urology referral for possible kidney stone. - Continue with forced hydration. - Take pyridium as needed for bladder analgesia. [email or web address] Not available 04/04/2021 14:52:34 01/18/2021 [id number] follow up in 1 year [email or web address] Not available 01/18/2021 11:12:29 12/27/2020 [id number] follow up in pos t op period [email or web address] Not available 12/29/2020 18:23:26 Reason for Referral Endocrinology Referral for H igh hemoglobin A1c level Referring Physician: Jacque Godwin, [employer], Encounter Date: 01/09/2023 Results Created Date Observation Date Name Description Value Unit Range Abnormal Flag LastModifiedBy Organization Detail LastModifiedTime 04/04/2021 urina lysis , dipst ick Unknown Analyte Clean catch Not Available [id number] [address], [address], 04/04/2021 14:17:06 04/04/2021 urina lysis , dipst ick Unknown Analyte Negati ve Not Available [id number] [address], [address], 04/04/2021 14:17:06 04/04/2021 urina lysis , dipst ick Unknown Analyte Negati ve Not Available [id number] [facility] [address], [place], [address], 04/04/2021 14:17:06 04/04/2021 urina lysis , dipst ick Unknown Analyte Negati ve Not Available [address], [place], [address], 04/04/2021 14:17:06 04/04/2021 urina lysis , dipst ick Unknown Analyte 1.010 Not Available [address] [address], [place], [address], 04/04/2021 14:17:06 04/04/2021 urina lysis , dipst ick Unknown Analyte large Not Available [address], [place], [address], 04/04/2021 14:17:06 04/04/2021 urina lysis , dipst ick Unknown Analyte 6.0 Not Available [address], [place], [address], 04/04/2021 14:17:06 04/04/2021 urina lysis , dipst ick Unknown Analyte Negati ve Not Available [address], [place], [address], 04/04/2021 14:17:06 04/04/2021 urina lysis , dipst ick Unknown Analyte 0.2 Not Available [address], [place], [address], 04/04/2021 14:17:06 04/04/2021 urina lysis , dipst ick Unknown Analyte negati ve Not Available [address], [place], [address], 04/04/2021 14:17:06 04/04/2021 urina lysis , dipst ick Unknown Analyte small Not Available [address], [place], [address], 04/04/2021 14:17:06 01/18/2021 hemog lobin (Hb), finge rstic k, blood fingerstick hemoglobin 15.1 g/dL 12.0-1 5.0 Not Available [address] [address], [place], [address], 01/18/2021 10:45:07 10/06/2020 urina lysis , dipst ick Unknown Analyte Clean catch Not Available [address] [address], [place], [address], 10/06/2020 14:04:39 10/06/2020 urina lysis , dipst ick Unknown Analyte Negati ve Not Available [address] [address], [place], [address], 10/06/2020 14:04:39 10/06/2020 urina lysis , dipst ick Unknown Analyte Negati ve Not Available [address] [address], [place], [address], 10/06/2020 14:04:39 10/06/2020 urina lysis , dipst ick Unknown Analyte Negati ve Not Available [address] [address], [place], [address], 10/06/2020 14:04:39 10/06/2020 urina lysis , dipst ick Unknown Analyte 1.005 Not Available [address], [place], [address], 10/06/2020 14:04:39 10/06/2020 urina lysis , dipst ick Unknown Analyte trace Not Available [address], [place], [address], 10/06/2020 14:04:39 10/06/2020 urina lysis , dipst ick Unknown Analyte 5.0 Not Available [address] [address], [place], [address], 10/06/2020 14:04:39 10/06/2020 urina lysis , dipst ick Unknown Analyte Negati ve Not Available [address], [place], [address], 10/06/2020 14:04:39 10/06/2020 urina lysis , dipst ick Unknown Analyte 0.2 Not Available [address], [place], [address], 10/06/2020 14:04:39 10/06/2020 urina lysis , dipst ick Unknown Analyte negati ve Not Available [address] [address], [place], [address], 10/06/2020 14:04:39 10/06/2020 urina lysis , dipst ick Unknown Analyte negati ve Not Available [address] [address], [place], [address], 10/06/2020 14:04:39 10/06/2020 urina lysis , dipst ick Unknown Analyte pale yellow Not Available [address], [place], [address], 10/06/2020 14:04:39 10/06/2020 urina lysis , dipst ick Unknown Analyte clear Not Available [address], [place], [address], 10/06/2020 14:04:39 10/06/20 20 10/06/2020 bacte rial vagin osis + vagin itis panel , vagin al Unknown Analyte negati ve Not Available [address], [place], [address], 10/06/2020 14:18:07 10/06/20 20 10/06/2020 bacte rial vagin osis + vagin itis panel , vagin al Unknown Analyte negati ve Not Available [address], [place], [address], 10/06/2020 14:18:07 10/06/20 20 10/06/2020 bacte rial vagin osis + vagin itis panel , vagin al Unknown Analyte negati ve Not Available [address], [place], [address], 10/06/2020 14:18:07 04/04/20 21 04/04/2021 cultu re, urine cult-urine no growth (<1,00 0 cfu/mL ) at 24 hours. Not Available [facility] [address], [place], [id number], 04/06/2021 09:57:18 10/18/20 21 10/20/2021 URINE CULTU RE, ROUTI NE urine culture, routine final report Not Available [facility] ([facility]) [address] [facility] [address], [place], [address], 10/20/2021 16:08:46 10/18/20 21 10/20/2021 URINE CULTU RE, ROUTI NE result 1 mixed urogen ital alfonso Not Available [facility] ([facility]) [address] [facility] [place], [place], [address], 10/20/2021 16:08:46 10/18/20 21 10/18/2021 bacte rial vagin osis + vagin itis panel , vagin al gardnerella negati ve negati ve Not Available [address] [address], [place], [address], 10/18/2021 09:31:21 10/18/20 21 10/18/2021 bacte rial vagin osis + vagin itis panel , vagin al trichomonas negati ve negati ve Not Available [address] [address], [place], [address], 10/18/2021 09:31:21 10/18/20 21 10/18/2021 bacte rial vagin osis + vagin itis panel , vagin al kiran negati ve negati ve Not Available [address] [address], [place], [address], 10/18/2021 09:31:21 10/18/20 21 10/18/2021 wet mount panel , vagin al fluid Unknown Analyte < or = 4.5 Not Available [address], [place], [address], 10/18/2021 10:30:32 10/18/20 21 10/18/2021 wet mount panel , vagin al fluid Unknown Analyte <20% Not Available [address], [place], [address], 10/18/2021 10:30:32 10/18/20 21 10/18/2021 wet mount panel , vagin al fluid Unknown Analyte negati ve Not Available [address], [place], [address], 10/18/2021 10:30:32 10/18/20 21 10/18/2021 wet mount panel , vagin al fluid Unknown Analyte negati ve Not Available [address], [place], [address], 10/18/2021 10:30:32 10/18/20 21 10/18/2021 wet mount panel , vagin al fluid Unknown Analyte negati ve Not Available [address], [place], [address], 10/18/2021 10:30:32 10/18/20 21 10/18/2021 wet mount panel , vagin al fluid Unknown Analyte negati ve Not Available [address], [place], [address], 10/18/2021 10:30:32 10/18/20 21 10/18/2021 wet mount panel , vagin al fluid Unknown Analyte Rare Not Available [address], [place], [address], 10/18/2021 10:30:32 10/18/20 21 10/18/2021 wet mount panel , vagin al fluid Unknown Analyte Rods Not Available [address], [place], [address], 10/18/2021 10:30:32 10/18/20 21 10/18/2021 urina lysis , dipst ick Unknown Analyte Clean catch Not Available [address], [place], [address], 10/18/2021 09:13:57 10/18/2010/18/2021 urina lysis , dipst ick Unknown Analyte Negati ve Not Available [address], [place], [address], 10/18/2021 09:13:57 10/18/20 21 10/18/2021 urina lysis , dipst ick Unknown Analyte Negati ve Not Available [address], [place], [address], 10/18/2021 09:13:57 10/18/20 21 10/18/2021 urina lysis , dipst ick Unknown Analyte trace Not Available [address], [place], [address], 10/18/2021 09:13:57 10/18/20 21 10/18/2021 urina lysis , dipst ick Unknown Analyte 1.020 Not Available [address], [place], [address], 10/18/2021 09:13:57 10/18/20 21 10/18/2021 urina lysis , dipst ick Unknown Analyte modera te Not Available [address], [place], [address], 10/18/2021 09:13:57 10/18/2010/18/2021 urina lysis , dipst ick Unknown Analyte 6.0 Not Available [address], [place], [address], 10/18/2021 09:13:57 10/18/2010/18/2021 urina lysis , dipst ick Unknown Analyte trace Not Available [address], [place], [address], 10/18/2021 09:13:57 10/18/2010/18/2021 urina lysis , dipst ick Unknown Analyte 0.2 Not Available [address], [place], [address], 10/18/2021 09:13:57 10/18/2010/18/2021 urina lysis , dipst ick Unknown Analyte negati ve Not Available [address], [place], [address], 10/18/2021 09:13:57 10/18/2010/18/2021 urina lysis , dipst ick Unknown Analyte negati ve Not Available [address], [place], [address], 10/18/2021 09:13:57 10/18/20 21 10/18/2021 urina lysis , dipst ick Unknown Analyte yellow Not Available [address], [place], [address], 10/18/2021 09:13:57 10/18/20 21 10/18/2021 urina lysis , dipst ick Unknown Analyte slight ly cloudy Not Available [id number] [facility] [address], [place], [address], 10/18/2021 09:13:57 05/27/20 22 05/28/2022 IGP, APTIM A HPV, RFX 16/18 ,45 HPV aptima negati ve negati ve Not Available [facility] (Lab) [id number] [place] [address], [place], [address], 05/29/2022 17:07:56 05/27/20 22 05/29/2022 IGP, APTIM A HPV, RFX 16/18 ,45 interpretati on nilm Not Available [facility] (Lab) [id number] [place] [address], [place], [address], 05/29/2022 17:07:56 05/27/20 22 05/29/2022 IGP, APTIM A HPV, RFX 16/18 ,45 category: nil Not Available [facility] (Lab) [id number] [place] [address], [place], [address], 05/29/2022 17:07:56 05/27/20 22 05/29/2022 IGP, APTIM A HPV, RFX 16/18 ,45 adequacy: endo Not Available [facility] (Lab) [address] [address], [place], [address], 05/29/2022 17:07:56 05/27/20 22 05/29/2022 IGP, APTIM A HPV, RFX 16/18 ,45 clinician provided ICD10: commen t Not Available [facility] (Lab) [address] [address], [place], [address], 05/29/2022 17:07:56 05/27/20 22 05/29/2022 IGP, APTIM A HPV, RFX 16/18 ,45 performed by: jim carbajal Not Available [facility] (Lab) [id number] [place] [address] [address], [place], [address], 05/29/2022 17:07:56 05/27/20 22 05/29/2022 IGP, APTIM A HPV, RFX 16/18 ,45 note: jim carbajal Not Available [facility] (Lab) [address] [facility] [address], [place], [address], 05/29/2022 17:07:56 05/27/20 22 05/29/2022 IGP, APTIM A HPV, RFX 16/18 ,45 test methodology: jim carbajal Not Available [facility] (Lab) [address] [place] [address] [address], [place], [address], 05/29/2022 17:07:56 01/07/20 23 01/07/2023 HEMOG LOBIN A1C hemoglobin A1C 5.2 % <5.7 Not Available [address], [place], [address], 01/10/2023 15:21:37 01/07/20 23 01/07/2023 TSH WITH REFLE X TO FREE T4 TSH 2.97 uIU/m L 0.30-4 .20 Not Available [address], [place], [address], 01/07/2023 23:45:20 01/07/20 23 01/07/2023 ESTRA DIOL estradiol 30 pg/mL Not Available [address], [place], [address], 01/07/2023 23:45:21 01/07/20 23 01/07/2023 FOLLI MICHAEL STIMU LATIN G HORMO NE FSH 11.1 mIU/m L Not Available [address], [place], [address], 01/07/2023 23:45:21 07/29/20 23 07/29/2023 URINE CULTU RE urine culture see result s below Not Available [address], [place], [address], 07/31/2023 07:18:10 07/29/20 23 07/29/2023 urina lysis , dipst ick, auto Unknown Analyte Clean Catch Not Available [id number] oneill [address], [place], [address], 07/29/2023 12:22:47 07/29/20 23 07/29/2023 urina lysis , dipst ick, auto Unknown Analyte negati ve Not Available [id number] one[place] [address], [place], [address], 07/29/2023 12:22:47 07/29/20 23 07/29/2023 urina lysis , dipst ick, auto Unknown Analyte negati ve Not Available [id number] one[place] [address], [place], [address], 07/29/2023 12:22:47 07/29/20 23 07/29/2023 urina lysis , dipst ick, auto Unknown Analyte negati ve Not Available [id number] one[place] [address], [place], [address], 07/29/2023 12:22:47 07/29/20 23 07/29/2023 urina lysis , dipst ick, auto Unknown Analyte 1.020 Not Available [id number] boylea [address], [place], [address], 07/29/2023 12:22:47 07/29/20 23 07/29/2023 urina lysis , dipst ick, auto Unknown Analyte trace Not Available [id number] alfred [address], [place], [address], 07/29/2023 12:22:47 07/29/20 23 07/29/2023 urina lysis , dipst ick, auto Unknown Analyte 5.0 Not Available [id number] alfred [address], [place], [address], 07/29/2023 12:22:47 07/29/20 23 07/29/2023 urina lysis , dipst ick, auto Unknown Analyte trace Not Available [id number] alfred [address] [facility] [address], [place], [address], 07/29/2023 12:22:47 07/29/20 23 07/29/2023 urina lysis , dipst ick, auto Unknown Analyte 0.2 Not Available [id number] alfred [address], [place], [address], 07/29/2023 12:22:47 07/29/20 23 07/29/2023 urina lysis , dipst ick, auto Unknown Analyte negati ve Not Available [id number] [address] [address], [place], [address], 07/29/2023 12:22:47 07/29/20 23 07/29/2023 urina lysis , dipst ick, auto Unknown Analyte trace Not Available [id number] alfred [address], [place], [address], 07/29/2023 12:22:47 07/29/20 23 07/29/2023 urina lysis , dipst ick, auto Unknown Analyte yellow Not Available [id number] alfred [address], [place], [address], 07/29/2023 12:22:47 07/29/20 23 07/29/2023 urina lysis , dipst ick, auto Unknown Analyte clear Not Available [id number] alfred [address] [address], [place], [address], 07/29/2023 12:22:47 10/16/20 23 10/16/2023 wet mount panel , vagin al fluid vaginal pH negat macarena < or = to 4.5 Not Available Jethro oneill [address] [place] [address], [place], [address], 10/16/2023 17:33:27 10/16/20 23 10/16/2023 wet mount panel , vagin al fluid clue cells 20% negat macarena <20% Not Available Jethro oneill [address] 100, [place], [address], 10/16/2023 17:33:27 10/16/20 23 10/16/2023 wet mount panel , vagin al fluid trichomonads negati ve negat macarena Not Available Jethro oneill [address] [place] [address], [place], [address], 10/16/2023 17:33:27 10/16/20 23 10/16/2023 wet mount panel , vagin al fluid yeast positi ve negat macarena negati ve/pos itive Not Available Jethro oneill [address] 100, [place], [address], 10/16/2023 17:33:27 12/18/19 24 12/18/2023 URINE CULTU RE urine culture see result s below Not Available [address], [place], [address], 12/20/2023 06:57:01 12/18/19 24 12/18/2023 urina lysis , dipst ick, auto Unknown Analyte Clean Catch Not Available [id number] oneill [address] [facility] 100, [place], [address], 12/18/2023 16:21:42 12/18/19 24 12/18/2023 urina lysis , dipst ick, auto Unknown Analyte negati ve Not Available [id number] oneill [address] [facility] 100, [place], [address], 12/18/2023 16:21:42 12/18/19 24 12/18/2023 urina lysis , dipst ick, auto Unknown Analyte negati ve Not Available [id number] oneill [address] [facility] 100, [place], [address], 12/18/2023 16:21:42 12/18/19 24 12/18/2023 urina lysis , dipst ick, auto Unknown Analyte negati ve Not Available [id number] oneill [address] [facility] 100, [place], [address], 12/18/2023 16:21:42 12/18/19 24 12/18/2023 urina lysis , dipst ick, auto Unknown Analyte 1.015 Not Available [id number] alfred [address] [facility] 100, [place], [address], 12/18/2023 16:21:42 12/18/19 24 12/18/2023 urina lysis , dipst ick, auto Unknown Analyte trace Not Available [id number] alfred [address] [facility] 100, [place], [address], 12/18/2023 16:21:42 12/18/19 24 12/18/2023 urina lysis , dipst ick, auto Unknown Analyte 6.0 Not Available [id number] alfred [address] [place] [address], [place], [address], 12/18/2023 16:21:42 12/18/19 24 12/18/2023 urina lysis , dipst ick, auto Unknown Analyte negati ve Not Available [id number] oneill [address] 100, [place], [address], 12/18/2023 16:21:42 12/18/19 24 12/18/2023 urina lysis , dipst ick, auto Unknown Analyte 0.2 Not Available [id number] alfred [address] 100, [place], [address], 12/18/2023 16:21:42 12/18/19 24 12/18/2023 urina lysis , dipst ick, auto Unknown Analyte negati ve Not Available [id number] oneill [address] [place] [address], [place], [address], 12/18/2023 16:21:42 12/18/19 24 12/18/2023 urina lysis , dipst ick, auto Unknown Analyte negati ve Not Available [id number] oneill [address] [place] [address], [place], [address], 12/18/2023 16:21:42 12/18/19 24 12/18/2023 urina lysis , dipst ick, auto Unknown Analyte yellow Not Available [id number]_jvlotpebbles alferd [address] [place] [address], [place], [address], 12/18/2023 16:21:42 12/18/19 24 12/18/2023 urina lysis , dipst ick, auto Unknown Analyte clear Not Available [id number] alfred [address] [address], [place], [address], 12/18/2023 16:21:42 12/19/19 24 12/19/2023 wet mount panel , vagin al fluid vaginal pH 4.5 negat macarena < or = to 4.5 Not Available [id number] oneill [address] 100, [place], [address], 12/19/2023 22:46:58 12/19/19 24 12/19/2023 wet mount panel , vagin al fluid clue cells >20% negat macarena <20% Not Available Jethro oneill [address] [address], [place], [address], 12/19/2023 22:46:58 12/19/19 24 12/19/2023 wet mount panel , vagin al fluid trichomonads ngaitv e negat macarena Not Available [id number] oneill [address] [place] [address], [place], [address], 12/19/2023 22:46:58 12/19/19 24 12/19/2023 wet mount panel , vagin al fluid yeast negati ve negat macarena negati ve/pos itive Not Available [id number] oneill [facility] [address] 100, [place], [address], 12/19/2023 22:46:58 04/17/20 21 04/17/2021 US, trans vagin al No observ ation record ed. [place] [address], [place], [address], 04/18/2021 10:02:29 07/22/20 22 07/22/2022 MAMMO , scree alex, tomos ynthe sis, bilat eral, w/ CAD No observ ation record ed. [email or web address] [facility] [address] [facility], [place], [address], 07/24/2022 09:18:10 07/25/20 23 07/22/2022 MAMMO , scree alex, tomos ynthe sis, bilat eral, w/ CAD No observ ation record ed. [email or web address] [address], [place], [address], 07/25/2023 15:15:18 07/27/20 23 07/27/2023 lay lette r No observ ation record ed. [facility], [place], [address], 07/28/2023 09:38:13 07/27/20 23 07/27/2023 MAMMO , scree alex, tomos ynthe sis, bilat eral No observ ation record ed. [email or web address], [place], [address], 07/28/2023 08:59:12 07/29/20 23 07/29/2023 US, trans vagin al No observ ation record ed. berny Isaace [address], [place], [address], 08/12/2023 10:50:51 Result Notes Documentation Provider Name and Address Organization Details Recorded Time Mammo, Screening, Tomosynthesis, Bilateral : Mammogram Screening Mammogram Type: 3D Bilateral Radiological Classification: Bi-Rads 2 - Benign Findings ACR Category: c-Heterogeneously dense, may obscure small masses Followup planned: Screening mammogram one year YASMINE Pham - [facility] [employer] 07/28/2023 08:59:12 Problems Name Status Onset Date Resolution Date Notes Provider Name and Address Organization Details Recorded Time Asthma Active Not Available [facility] 07/10/2020 01:08:47 Notes:07/10/2020: *Problem N bradly: Tobacco *Problem Status: active Problem Notes None recorded. Procedures Surgical History Date Name Laterality Status Provider Name and Address Organization Details Recorded Time 07/25/20 23 Date of Last Mammogram completed Cristopher Backbeth null, [place] [employer] 07/28/2023 08:59:23 05/27/20 22 Date of Last Pap Smear completed Agnes Sexton null, [place] - [facility] [employer] 06/06/2022 16:28:21 03/25/20 22 Date of Last Colonoscopy completed Yana Barry null, [facility] 01/07/2023 14:34:10 03/25/20 22 Colonoscopy completed Yana Barry null, [facility] 01/07/2023 14:34:22 01/05/20 21 LAPAROSCOPIC OVARIAN CYSTECTOMY (S[place]) [place] [id number], [address], [facility] [employer] 01/24/2021 15:29:36 08/31/20 18 total [place] [id number], [place], [address], [facility] [employer] 12/29/2020 18:17:15 11/17/20 17 colposcopy [place] [id number], [place], [address], [facility] [employer] 12/29/2020 18:17:03 12/01/19 12 destruction of lesion [place] [id number] [address], [address], [facility] [employer] 12/29/2020 18:17:34 01/06/20 02 Caesarean Section completed Yana feliz, [facility] 01/07/2023 14:34:22 12/01/19 02 [place] [id number], [place], [address], [place] [facility] [employer] 12/29/2020 18:17:20 abdominoplasty completed Yanaemily Barry null, [place] [facility] [employer] 01/07/2023 14:34:22 arthroscopically aided anterior cruciate ligament reconstruction completed Yanaemily Mckenziespeth null, [place] [facility] 01/07/2023 14:34:22 Tonsillectomy completed Yana Asha null, [place] [facility] [employer] [employer] 01/07/2023 14:34:22 Orthopedic Surgery completed Yanaemily Mckenziespeth null, [place] [facility] 01/07/2023 14:34:22 Abdominoplasty completed Yanaemily Barry null, [place] [facility] 01/07/2023 14:34:22 Imaging Results Imaging Date Name Status LastModified by Organization Details LastModified Time 04/17/2021 US, transvaginal completed berny Moe [address], [place], [address], 04/18/2021 10:02:29 07/22/2022 MAMMO, screening, tomosynthesis, bilateral, w/ CAD completed [email or web address] [address], [place], [address], 07/24/2022 09:18:10 07/22/2022 MAMMO, screening, tomosynthesis, bilateral, w/ CAD completed [email or web address] [address], [place], [address], 07/25/2023 15:15:18 07/27/2023 lay letter completed LUIGI [id number] [address], [place], [address], 07/28/2023 09:38:13 07/27/2023 MAMMO, screening, tomosynthesis, bilateral completed [email or web address] [address] [address], [place], [address], 07/28/2023 08:59:12 07/29/2023 , transvaginal completed berny [address] [facility], [place], [address], 08/12/2023 10:50:51 Procedure Notes None recorded. Medical Equipment None Reported. Allergies Allergen ID Allergen Name Allergen Category Reaction Reaction Severity Criticality Documentation Date Start Date Code Code System Note Provider Name and Address Organization Details Recorded Time 958031 Medicinal product containin g penicilli n and acting as antibacte rial agent (product) medicatio n Not available Not available Not available 07/07/2020 53124 05 SNOMED Dennise Miramontes (SEVERINO) YASMINE feliz - [employer] 14:17:02 Medications Name Sig Start Date Stop [...] t Available Vitals Date Recorded Body height Body mass index (BMI) Body weight Systolic blood pressure Diastolic blood pressure Provider Name and Address Organization Details Last Updated DateTime 10/18/2021 165.1 cm 32.6 kg/m2 95884.1 g 110 mm[Hg] 70 mm[Hg] YASMINE Shane [employer] 1 09:11:23 Date Recorded Body height Body mass index (BMI) Body weight Systolic blood pressure Diastolic blood pressure Provider Name and Address Organization Details Last Updated DateTime 05/27/2022 165.1 cm 32.8 kg/m2 68654.7 g 110 mm[Hg] 76 mm[Hg] YASMINE Shane [employer] 2 17:06:13 Date Recorded Body height Body mass index (BMI) Body weight Systolic blood pressure Diastolic blood pressure Provider Name and Address Organization Details Last Updated DateTime 01/07/2023 165.1 cm 36.1 kg/m2 35370.54 g 126 mm[Hg] 80 mm[Hg] Yana Mckenziespeth null, [facility] 3 14:37:53 Date Recorded Body height Body mass index (BMI) Body weight Systolic blood pressure Diastolic blood pressure Provider Name and Address Organization Details Last Updated DateTime 06/09/2023 165.1 cm 35.5 kg/m2 02577.33 g 120 mm[Hg] 78 mm[Hg] Harriet Gutierrez null, [facility] [employer] 3 16:46:33 Date Recorded Body height Body mass index (BMI) Body weight Systolic blood pressure Diastolic blood pressure Provider Name and Address Organization Details Last Updated DateTime 07/25/2023 165.1 cm 35.8 kg/m2 36893.36 g 110 mm[Hg] 68 mm[Hg] Elo Baker null, [facility] 3 14:10:48 Date Recorded Body height Body mass index (BMI) Body weight Systolic blood pressure Diastolic blood pressure Provider Name and Address Organization Details Last Updated DateTime 07/29/2023 165.1 cm 36.2 kg/m2 50178.98 g 120 mm[Hg] 70 mm[Hg] Isabel Dee (MAGDALENO) null, [facility] [employer] 3 16:02:20 Date Recorded Body height Body mass index (BMI) Body weight Systolic blood pressure Diastolic blood pressure Provider Name and Address Organization Details Last Updated DateTime 10/16/2023 165.1 cm 37.6 kg/m2 362011.5 9 g 130 mm[Hg] 76 mm[Hg] Kaz Loyd null, [facility] 3 17:11:24 Date Recorded Systolic blood pressure Diastolic blood pressure Provider Name and Address Organization Details Last Updated DateTime 10/16/2023 118 mm[Hg] 77 mm[Hg] Soha Powell null, [facility] 10/16/2023 17:32:41 Date Recorded Body height Systolic blood pressure Diastolic blood pressure Provider Name and Address Organization Details Last Updated DateTime 12/18/2023 165.1 cm 120 mm[Hg] 80 mm[Hg] YASMINE Wade [employer] 12/18/2023 16:21:33 Date Recorded Body height Body mass index (BMI) Body weight Systolic blood pressure Diastolic blood pressure Provider Name and Address Organization Details Last Updated DateTime 12/29/2023 165.1 cm 39.2 kg/m2 187886.6 4 g 114 mm[Hg] 72 mm[Hg] Yana YASMINE Contreras [employer] 4 15:32:43 Date Recorded Body mass index (BMI) Body temperature Body height Body weight Systolic blood pressure Diastolic blood pressure Provider Name and Address Organization Details Last Updated DateTime 1 29.16 kg/m2 98.4 [degF] 165.201 6 cm 73550.0 24755 g 110 mm[Hg] 70 mm[Hg] Not Available [facility] 0 08:18:47 Date Recorded Body mass index (BMI) Body weight Body height Systolic blood pressure Diastolic blood pressure Provider Name and Address Organization Details Last Updated DateTime 04/27/2009 27.12 kg/m2 72717.55 631 g 165.2015 cm 118 mm[Hg] 66 mm[Hg] Not Available [facility] 0 08:18:48 Date Recorded Body mass index (BMI) Body height Body weight Systolic blood pressure Diastolic blood pressure Provider Name and Address Organization Details Last Updated DateTime 12/02/2014 30.12 kg/m2 165.2015 cm 66988.21 897 g 112 mm[Hg] 70 mm[Hg] Not Available [facility] 0 08:18:48 Date Recorded Body mass index (BMI) Body height Body weight Systolic blood pressure Diastolic blood pressure Provider Name and Address Organization Details Last Updated DateTime 08/30/2013 28.95 kg/m2 165.2015 cm 83610.07 238 g 100 mm[Hg] 68 mm[Hg] Not Available [facility] 0 08:18:47 Date Recorded Body mass index (BMI) Body height Body weight Systolic blood pressure Diastolic blood pressure Provider Name and Address Organization Details Last Updated DateTime 10/30/2017 38.09 kg/m2 160.02 cm 54563.35 955 g 126 mm[Hg] 82 mm[Hg] Not Available [facility] 0 08:18:48 Date Recorded Body mass index (BMI) Body height Body weight Systolic blood pressure Diastolic blood pressure Provider Name and Address Organization Details Last Updated DateTime 07/02/2011 29.13 kg/m2 165.2016 cm 83482.34 4369 g 110 mm[Hg] 70 mm[Hg] Not Available [facility] 0 08:18:48 Date Recorded Body mass index (BMI) Body height Body weight Systolic blood pressure Diastolic blood pressure Provider Name and Address Organization Details Last Updated DateTime 07/04/2011 28.29 kg/m2 165.2016 cm 30141.70 29 g 120 mm[Hg] 70 mm[Hg] Not Available [facility] 0 08:18:48 Date Recorded Body mass index (BMI) Body height Body weight Systolic blood pressure Diastolic blood pressure Provider Name and Address Organization Details Last Updated DateTime 10/17/2016 38.79 kg/m2 160.02 cm 78303.72 903 g 106 mm[Hg] 62 mm[Hg] Not Available [facility] 0 08:18:47 Date Recorded Body height Body mass index (BMI) Body weight Systolic blood pressure Diastolic blood pressure Provider Name and Address Organization Details Last Updated DateTime 10/12/2015 160.02 cm 34.72 kg/m2 29323.10 452 g 108 mm[Hg] 70 mm[Hg] Not Available [facility] 0 08:18:48 Date Recorded Body mass index (BMI) Body weight Body height Systolic blood pressure Diastolic blood pressure Provider Name and Address Organization Details Last Updated DateTime 05/01/2009 27.12 kg/m2 67893.55 631 g 165.2016 cm 118 mm[Hg] 66 mm[Hg] Not Available [facility] 0 08:18:48 Date Recorded Body mass index (BMI) Body height Body weight Systolic blood pressure Diastolic blood pressure Provider Name and Address Organization Details Last Updated DateTime 12/16/2016 39.71 kg/m2 160.02 cm 059321.8 7343 g 118 mm[Hg] 76 mm[Hg] Not Available [facility] 0 08:18:48 Date Recorded Body mass index (BMI) Body height Body weight Systolic blood pressure Diastolic blood pressure Provider Name and Address Organization Details Last Updated DateTime 08/08/2011 29.29 kg/m2 165.2016 cm 71471.25 712 g 114 mm[Hg] 62 mm[Hg] Not Available [facility] 0 08:18:48 Date Recorded Body mass index (BMI) Body weight Body height Systolic blood pressure Diastolic blood pressure Provider Name and Address Organization Details Last Updated DateTime 05/31/2010 27.46 kg/m2 92727.74 105 g 165.2015 cm 108 mm[Hg] 64 mm[Hg] Not Available [facility] 0 08:18:47 Date Recorded Body mass index (BMI) Body weight Body height Systolic blood pressure Diastolic blood pressure Provider Name and Address Organization Details Last Updated DateTime 08/01/2011 28.29 kg/m2 18779.70 29 g 165.2016 cm 108 mm[Hg] 60 mm[Hg] Not Available [facility] 0 08:18:48 Date Recorded Body height Body mass index (BMI) Body weight Systolic blood pressure Diastolic blood pressure Provider Name and Address Organization Details Last Updated DateTime 07/01/2011 165.2016 cm 29.29 kg/m2 88262.25 712 g 120 mm[Hg] 70 mm[Hg] Not Available [facility] 0 08:18:48 Date Recorded Body mass index (BMI) Body height Body weight Systolic blood pressure Diastolic blood pressure Provider Name and Address Organization Details Last Updated DateTime 09/08/2014 29.12 kg/m2 165.2016 cm 24830.66 475 g 110 mm[Hg] 70 mm[Hg] Not Available [facility] 0 08:18:48 Date Recorded Body height Body mass index (BMI) Body weight Systolic blood pressure Diastolic blood pressure Provider Name and Address Organization Details Last Updated DateTime 05/29/2012 165.2016 cm 28.66 kg/m2 75174.28 5733 g 90 mm[Hg] 62 mm[Hg] Not Available [facility] 0 08:18:49 Date Recorded Body mass index (BMI) Body weight Body height Systolic blood pressure Diastolic blood pressure Provider Name and Address Organization Details Last Updated DateTime 08/05/2012 30.95 kg/m2 21854.18 082 g 165.2015 cm 118 mm[Hg] 70 mm[Hg] Not Available [facility] 0 08:18:48 Date Recorded Body height Body mass index (BMI) Body weight Systolic blood pressure Diastolic blood pressure Provider Name and Address Organization Details Last Updated DateTime 08/13/2012 165.2016 cm 31.12 kg/m2 19256.77 319 g 118 mm[Hg] 68 mm[Hg] Not Available [facility] 0 08:18:48 Date Recorded Body height Body mass index (BMI) Body weight Systolic blood pressure Diastolic blood pressure Provider Name and Address Organization Details Last Updated DateTime 07/10/2017 160.02 cm 37.38 kg/m2 44574.99 007 g 108 mm[Hg] 70 mm[Hg] Not Available [facility] 0 08:18:48 Date Recorded Body height Body mass index (BMI) Body weight Systolic blood pressure Diastolic blood pressure Provider Name and Address Organization Details Last Updated DateTime 11/17/2017 160.02 cm 38.28 kg/m2 05688.91 8928 g 122 mm[Hg] 74 mm[Hg] Not Available [facility] 0 08:18:48 Date Recorded Body mass index (BMI) Body height Body weight Systolic blood pressure Diastolic blood pressure Provider Name and Address Organization Details Last Updated DateTime 01/10/2015 32.53 kg/m2 160.02 cm 61826.16 6903 g 110 mm[Hg] 62 mm[Hg] Not Available [facility] 0 08:18:47 Date Recorded Body height Body mass index (BMI) Body weight Systolic blood pressure Diastolic blood pressure Provider Name and Address Organization Details Last Updated DateTime 06/24/2017 160.02 cm 37.38 kg/m2 62211.99 007 g 124 mm[Hg] 76 mm[Hg] Not Available [facility] 0 08:18:48 Date Recorded Body mass index (BMI) Body height Body weight Systolic blood pressure Diastolic blood pressure Provider Name and Address Organization Details Last Updated DateTime 11/11/2019 35.78 kg/m2 160.02 cm 86869.65 874 g 98 mm[Hg] 62 mm[Hg] Not Available [facility] 0 08:18:49 Date Recorded Body mass index (BMI) Body weight Body height Systolic blood pressure Diastolic blood pressure Provider Name and Address Organization Details Last Updated DateTime 08/10/2019 36.85 kg/m2 14265.21 296 g 160.02 cm 112 mm[Hg] 70 mm[Hg] Not Available [facility] 0 08:18:48 Date Recorded Body mass index (BMI) Body height Body weight Systolic blood pressure Diastolic blood pressure Provider Name and Address Organization Details Last Updated DateTime 11/05/2018 37.73 kg/m2 160.02 cm 58312.17 481 g 108 mm[Hg] 60 mm[Hg] Not Available [facility] 0 08:18:48 Date Recorded Body height Body mass index (BMI) Body weight Systolic blood pressure Diastolic blood pressure Provider Name and Address Organization Details Last Updated DateTime 10/06/2020 160.02 cm 35.6 kg/m2 98062.07 g 100 mm[Hg] 72 mm[Hg] [facility] [employer] 0 14:04:25 Date Recorded Body height Body mass index (BMI) Body weight Systolic blood pressure Diastolic blood pressure Provider Name and Address Organization Details Last Updated DateTime 12/27/2020 165.1 cm 33 kg/m2 38316.73 g 120 mm[Hg] 62 mm[Hg] Sandy Horowitz (TERMED) null [facility] 1 14:00:30 Date Recorded Body height Body mass index (BMI) Body weight Systolic blood pressure Diastolic blood pressure Provider Name and Address Organization Details Last Updated DateTime 01/18/2021 165.1 cm 33.2 kg/m2 60618.04 g 122 mm[Hg] 84 mm[Hg] Harriet feliz [facility] [employer] 1 10:45:00 Date Recorded Body height Body mass index (BMI) Body weight Systolic blood pressure Diastolic blood pressure Provider Name and Address Organization Details Last Updated DateTime 04/04/2021 165.1 cm 32.2 kg/m2 82665.48 g 124 mm[Hg] 68 mm[Hg] Dennise Miramontes (SEVERINO) [facility] [employer] 1 14:24:45 Date Recorded Body temperature Provider Name a nd Address Organization Details Last Updated DateTime 04/04/2021 97.1 [degF] ALAN HERNANDEZ, ZENOBIA [address], [place], [address], [place] [facility] [employer] 04/04/2021 14:49:58 Social History Question Answer Notes LastModified by Organizat ion Details LastModified Time Tobacco Smoking Status Former Smoker quit 12/2022 [place] [address] [facility],[address], [place], [address], [place] [facility] [employer] 06/09/2023 16:58:47 Do You Have An Advance Directive? No Information not available 12/29/2023 What Is Your Level Of Alcohol Consumption? None Former Information not available 12/19/2023 What Is Your Level Of Caffeine Consumption? 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 Information not available 01/07/2023 Children's Names/ Remberto Sanchez Information not available 10/06/2020 [facility] [email or web address] Informat ion not available 01/07/2023 History Of [...] History Condition Response GI- Hemorrhoids Y Psych- Anxiety Disorder Y GI- Reflux/Ulcers Y Neurology- Headaches/Migraines Y Psych- Depression Y Cardiology- Heart Disease Ortho-Chronic Back Pain Y ENT- Seasonal Allergies/Allergic Rhiniti s Y Cardiology- Heart Arrhythmia Y Ortho- Arthritis Y Urology- Urinary Incontinence Y Pulmonary- Asthma Y Weight Management/Obesity Y Urology- Recurrent Urinary Tract Infecti ons Y Gynecological History Statement/Question Response History of [...] SARS-COV-2 (COVID-19) vaccine, UNSPECIFIED 03/19/2021 completed Dennise POWERS) trini, YASMINE Ray [employer] 04/04/2021 14:26:27 SARS-COV-2 (COVID-19) vaccine, UNSPECIFIED 02/19/2021 completed Dennise Miramontes (SEVERINO) YASMINE feliz [employer] 04/04/2021 14:26:50 Past Encounters Encounter ID Performer Location Encounter Start Date Encounter Closed Date Diagnosis/Indication [id number] MARY ORTA CNM [id number] ALE_JOSEArlyn LE [address] [facility] [address] [place] [address] 10/06/2020 13:45:52 10/06/2020 14:22:33 Increased frequency of urination Vaginal irritation [id number] JESSICA BACH MD [id number]_AIEBID ALE_[place] [address] [place] [id number] 12/27/2020 13:54:24 12/27/2020 16:37:15 Cyst of ovary Constipation Pain in pelvis [id number] JESSICA BACH MD [id number]_CMVCGT [place] [address] [place] [address] [address] [address] 01/18/2021 10:39:33 01/18/2021 11:12:23 Postoperative visit Endometriosis of pelvis Constipation [id number] ALAN HERNANDEZ ZENOBIA [id number] [place] [address] [place] [address] [address] EN[address] [address] 04/04/2021 14:14:23 04/04/2021 14:53:06 Dysuria Right flank pain Renal angle tenderness [id number] JESSICA BACH MD [id number]_HYUKWM [place] [address] [place] [address] [address] EN[address] [id number] 04/17/2021 08:27:12 04/17/2021 09:01:00 [id number] KORY SEN MD [id number]_EVAQAS [place] [address] [place], [place] [address]SHAHID [facility] [id number] 04/17/2021 15:17:14 04/25/2021 16:10:28 Pain in pelvis Increased frequency of urination [id number] HODAN DANIEL, CNM [id number]_LWMMWL [place] [address] [place] [address] [facility] [id number] 10/18/2021 08:43:26 10/18/2021 11:12:23 Burning sensation of vagina Urgent desire to urinate [id number] JACQUE GODWIN MD [id number]_ENTBNN [place] [address] [place] [address] JIMSHAHID ORTI[facility]LA [facility] [id number] 05/27/2022 16:48:27 05/27/2022 17:59:39 Gynecologic examination [id number] JACQUE GODWIN MD [id number]_YUXWKF ALE_[place] [address] [place] [address] 01/07/2023 14:30:58 01/29/2023 16:23:20 Abnormal weight gain [id number] JESSICA BACH MD [id number]_ITBHYT ALE_LANI[address] [facility] [address] [place] [address] 06/09/2023 16:25:14 06/24/2023 12:39:05 Gynecologic examination Endometriosis of pelvis Ex-smoker Body mass index 30+ - obesity [id number] MD DUSTY NUGENT_ORA JOSHUAJOSEPRATIK [address] J[facility]SHAHID [facility] ITE [address] [place] [id number] 07/25/2023 14:05:43 07/30/2023 09:37:51 Pain in pelvis Fatigue [id number] MD DUSTY MCCLURE_ORA [place] [address] [place] [id number] 07/29/2023 11:56:39 08/12/2023 15:08:13 Pain in pelvis [id number] JACQUE GODWIN MD MU339_EGIWONORA [place] [address] [id number] 07/29/2023 15:48:21 08/07/2023 12:30:51 Pain in pelvis [id number] JESSICA BACH MD [id number]_MQBSONORA CAMARGO [address] [address] 10/16/2023 16:41:21 10/20/2023 17:20:30 Yeast detected Bacterial vaginosis Vaginal discharge [id number] MD MISAEL MCCLURE [address] [address] 12/18/2023 16:14:10 12/19/2023 15:14:36 Urinary symptoms Bacterial vaginosis Vaginal odor Mixed urinary incontinence Health Concerns Section Related Observation LastModified by Organization Detai ls LastModified Time None Recorded Concern Status LastModified by Organization Details LastModified Time None Recorded Advance Directives Directive N: Payers Encounter Date Sequence Insurance Name Policy Number Policy Sprague Covered Member ID Sprague Member ID Guarantor Name 12/18/2023 1 [facility] [id number] Danielle Mckay Greg [id number] Danielle Jewell Greg 10/16/2023 1 [facility] [id number] Danielle A Greg [id number] Danielle Jewell Greg 07/29/2023 1 [facility] [id number] Danielle A Greg [id number] Danielle Fanta Greg 07/29/2023 1 [facility] [id number] Danielle A Greg [id number] Danielle Fanta Greg 07/25/2023 1 [facility] [id number] Danielle A Greg [id number] Danielle Fanta Greg 06/09/2023 1 [facility] [id number] Danielle A Greg [id number] Danielle Fanta Greg 01/07/2023 1 [facility] [id number] Danielle A Greg [id number] Danielle Fanta Greg 05/27/2022 1 [facility] [id number] Danielle A Greg [id number] Danielle Fanta Greg 10/18/2021 1 [facility] [id number] Danielle A Greg [id number] Danielle Fanta Greg 04/17/2021 1 [employer] [id number] Enrique Greg [id number] [facility] [place] Greg 04/17/2021 1 [employer] [id number] Enrique Greg [id number] Danielle Fanta Greg 04/04/2021 1 [employer] [id number] Enrique Greg [id number] Danielle Anne Greg 01/18/2021 1 [employer] [id number] Enrique Greg [id number] Danielle Anne Greg 12/27/2020 1 [employer] [id number] Enrique Greg [id number] Danielle Anne Greg 10/06/2020 1 [employer] [id number] Enrique Greg [id number] [facility] [place] Notes Date Note Type Note Provider Name and Address Organization Details Recorded Time 10/06/2020 text/html HPI Notes: Vince enriquez presents to clinic today with complaints of vaginal itching that has been present for: one month, off and on. This is a new problem. This is the patient's initial visit for this issue ____. She also reports vaginal odor, vaignal discharge. The patient admits having risk factors of none and denies recently entering into a new sexual relationship.. Not currently sexually active. The patient reports she has not been exposed to new chemicals or hygienic agents. There are no aggravating factors. Completed Monistat 3 w/ no relief. MARY FREEMAN ORTA [address] [facility],[address], [place], [address], [facility] [employer] 10/06/2020 14:22:37 12/27/2020 text/html HPI Notes: Lane willett is here for an in patient stay follow up. She was initially admitted for severe LLQ pain and CT showed possible left adnexal thrombus. She had an ultrasound that showed NO thrombus. She was kept for inpatient monitoring and management of pain. Due to potential for clot, she was started on antibiotics in case of septic pelvic thrombophlebitis. She had repeat imaging with MRI that showed NO clot and likely left ovarian cyst. She was discharged to home with pain medications for management. She has been doing okay since discharge, friday she was good and then friday she started to have some bloating and constipation. She started taking docusate and miralax on friday and did an enema and felt slightly better. She notes that overall, she is much more comfortable than when she was in the hosptial, but still feels full and uncomfortable with movement and bending. She states taht she wishes she would have had the surgery now. She has not taken any narcotics since friday. She is taking ibuprofen/tylenol without alleviation of her symptoms. She notes that she is due for her period and is hoping that she has an improvement in her pain soon. She notes that she smokes 1x per week. She has previously been on OCP and had weight gain, Depo (weight gain). She does not want an IUD. She gets migraine with aura. She had a cardiac ablation for SVT, no further issues with this. She has no history of problems with anesthesia and has no chest pain/significant SOB with ambulation, can walk for 30 minutes 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 Procedure Date: 01/05/2021 Surgical Procedure: laparoscopy: operative; laparoscopic left ovarian cyst drainage, excision of left paratubal cyst and cauterization of endometriosis implants. Pathology: surgical findings and pathology reviewed; future implications discussed Postoperative Symptoms: no fever; chills; constipation; no abdominal pain; no pelvic pain; no incisional drainage; incision(s) closed; no abnormal bleeding *Severity: mild Postoperative Complications: none Danielle notes that she is doing much better than prior to the surgery. She states that her pain is gone and feels much less bloated. She notes that she has not needed any narcotics since surgery and is only taking ibuprofen. She notes constipation. She is taking miralax. She states that fiber does not help her constipation, makes it worse. She is able to void without issues. She has not tried an enema yet. She has been [place] [address] [address], [place], [address], [facility] [employer] 01/24/2021 15:29:45 04/04/2021 text/html HPI Notes: Urina ry Symptoms ([facility]) Reported by patient. Patient Relationship to Practice: established patient Patient Presents For: a new evaluation Reason for Visit: pain with urination; frequency, back pain Pain Present In: lower abdomen/suprapubic area; back/flank Type of Pain: sharp pain Patient First Noted Symptoms: 1 days ago Symptoms Noted To: begin gradually Severity: severe Significant Medical History Includes: History of UTI: occasional Previous Diagnostic Testing: urinalysis Associated Signs & Symptoms: fever/chills; frequency; urinary urgency; dysuria; urinary frequency; back pain; no nausea/vomiting; no fever, chills Last UTI was December 2020 while on a trip in [place], treated w/ macrobid without resolution of symptoms. Was treated w/ cipro once returned. States cipro is her usual medication for UTI. IRVING RAMOS [address], [place], [address], [place] [facility] [employer] 04/04/2021 14:52:40 04/17/2021 text/html HPI Notes: Pt wa s seen by urology last well for pelvic pain and possible UTI. Reports cramping, bloating, nausea and right flank pain. Initially treated 5/5 with cipro. Had blood in her urine at that time. Saw urology last week and had a negative CT scan. Still having urinary frequency and urgency. No vaginal bleeding. No fevers/chills. Pelvic US today shows: 7cm retroverted uteurs with EMS of 2.9mm. Normal bilateral ovaries. No FF. OK simone monitor pain for now, wants to be sure nothing [place] [address] [facility], [place], [address], [facility] [employer] 05/14/2021 13:47:33 10/18/2021 text/html HPI Notes: Vagin al Infection Check The patient presents today with complaints of vaginal itching that has been present for 1 months. She reports additional symptoms. Additional symptoms include burning and odor. There are aggravating factors. These includeurination. This is a new problem. The patient denies a new sexual partner. She has not been exposed to new chemicals or hygienic agents. She has not had treatment for this condition. HODAN SANCHEZ CNM [address], [place], [address], [facility] [employer] 10/18/2021 11:07:10 05/27/2022 text/html HPI Notes: Annua l Premenopausal ([facility]) Reported by patient. Patient Relationship To Practice: established patient Relevant Family History: family history of breast cancer Contraceptive Method: satisfied: Mammogram: [place] [address] [facility], [place], [address], [facility] [employer] 05/27/2022 18:19:49 01/07/2023 text/html HPI Notes: Weigh t Loss Consult ([facility]) Reported by patient. Patient Relationship with Practice: established patient Patient Presents for: weight loss consult Date of initial consult:today Previous and Current Treatments: diet; exercise Pt is here with concerns regarding weight gain. She has had injuries every time she tries to restart her work out program. She is also dealing with neck pain and back pain. She recently was seen at the pain clinic. She was started on medication for migraine prevention. She has a hard time starting out slowly with her exercising and she can't just walk for exercise. She wonders if something is happening with her hormones. She is on Norethindrone for control of endometriosis. No periods. Pt has been sober for a couple of years. She stopped smoking cigars after her cardiac work up showed increased calcification- at the 98% for her age [place] [address], [place], [address], [place] [facility] [employer] 01/07/2023 17:30:53 06/09/2023 text/html HPI Notes: Gloria Alarcon ([place]) Reported by patient. Patient Relationship To Practice: established patient Current Medical History: changes in medical history since last visit Relevant Family History: family history of breast cancer; no family history of ovarian cancer; no family history of uterine cancer; no family history of colon cancer; no family history of blood clots/DVT Menstrual History: Frequency of Menses: none Contraceptive Method: satisfied: Sexually Active: Yes: same partner STI Screen: declines Health/Prevention: Exercise: no Mammogram: due Pap Smear +/- HPV Cotesting: up-to-date Colonoscopy: up-to-date Patient has: Primary Care Physician: yes Here for annual exam on NA for pelvic endometriosis. Does not get cycles with this. No hot flashes, no vaginal dryness No pelvic pain recent issue with some vaginal itching that resolved spontaneously. Has occasional discharge. no new underwear or soap has had fatigue recently. Since last exam, she has had a calf tear x 2. Seen for back pain seen by cardiology for atypical chest pain, found to have high heart calcium. started on statin. Had some dizziness/aching post meds. Quit smoking 12/2022. Has lower lung capacity, not able to work [place] [address], [place], [address], [place] [facility] [employer] 06/23/2023 22:56:45 07/25/2023 text/html HPI Notes: Lane en presents to our office today for evaluation of abdominal pain bloating sensation and fatigue. She is maintained on low-dose norethindrone for history of pelvic endometriosis. She is a 2 para 2 status post section in 1997 and 2001. She has no withdrawal bleeding from her norethindrone. Danielle reports pelvic pain in the left lower quadrant as well as generally in the abdomen. She is concurrently being evaluated by GI and has had breath testing, fructose and lactose screening and has been treated with Linzess. Given her history of endometriosis, she contacted our office regarding these persistent symptoms and an office call was scheduled. Danielle denies fever chills or any systemic signs of infection. She is not at risk for [place] [address] [facility],[address], [place], [address], [facility] [employer] 07/29/2023 18:16:29 07/29/2023 text/html HPI Notes: Abdominal/ Pelvic Pain ([facility]) Reported by patient. Notes: Pt has been seeing a GI for ongoing bowel problems. She is going through a series of treatments and test. She has notes pelvic pain. She also is seeing a neurosurgeon for her back pain. Her pains in her stomach and radiates to her right leg. Pt does have a diagnosis of endometriosis which is stable with the use of POP. [place] quit [place] [address], [place], [address], [facility] [employer] 07/31/2023 14:22:42 10/16/2023 text/html HPI Notes: here for vaginal discharge, odor. Some itching. Has been going on for months has SIBO (Small intestine bacterial overgrowth), has been on lots of antibiotics. now with yeast in mouth, has had an oral diflucan and a mouthwash that she is doing now. [place] [address], [place], [address], [facility] [employer] 10/16/2023 17:38:50 12/18/2023 text/html HPI Notes: here for bv [...] linzess, no improvement. going to pelvic floor runner soon, has talked with them about the urinary [place] [address] [facility] [address], [place], [address], [place] [facility] [employer] 12/19/2023 23:05:46 OBGyn Episode Ob Episode Information Episode Created Date Number of Fetuses Patient Bloodtype Patient rh Status Prepregnancy Weight lbs Domestic Partner Domestic Partner Phone Father Name Directory Carrier Status 12/29/19 21 1 CLOSED Fetus Data First Name Last Name Admitted to NICU Weight (g) Sex Living Outcome Pediatric Complications Fetus ID Race Codes Race Delivery Type 4139.02 7 F Full Term [id number] Girish Calculation Initial Girish Date Initial Exam Date Initial Exam Provider Initial Ultrasound Date Last Menstrual Period Date Ultra Sound Weeks Gestation 0 Eighteen To Twenty Week Girish Update Ultra Sound Date Fundal Height At Umbil Quickening Date Ultra Sound Latest Weeks Gestation Final Girish Confirmed By Final Girish Confirmed Date Final Girish Date Ultra Sound Latest Days Gestation 0 0 Menstrual History Last Menstrual Date Menses Monthly On Bcp Conception Prior Menses Frequency Hcg Plus Date Menarche Onset Age Delivery Information Delivery Date Delivery Type Labor Anesthesia Weeks Gestation Incision Type Labor Labor Length Hrs Delivered By Post Complications Tubal Sterilization Discharge Date Comments 8 41 36 Discharge Information Feeding Method Contraceptive Method Maternal HG B and HCT Levels Ob Episode Information Episode Created Date Number of Fetuses Patient Bloodtype Patient rh Status Prepregnancy Weight lbs Domestic Partner Domestic Partner Phone Father Name Directory Carrier Status 12/29/19 21 1 CLOSED Fetus Data First Name Last Name Admitted to NICU Weight (g) Sex Living Outcome Pediatric Complications Fetus ID Race Codes Race Delivery Type 3231.84 3 M Full Term [id number] Girish Calculation Initial Girish Date Initial Exam Date Initial Exam Provider Initial Ultrasound Date Last Menstrual Period Date Ultra Sound Weeks Gestation 0 Eighteen To Twenty Week Girish Update Ultra Sound Date Fundal Height At Umbil Quickening Date Ultra Sound Latest Weeks Gestation Final Girish Confirmed By Final Girish Confirmed Date Final Girish Date Ultra Sound Latest Days Gestation 0 0 Menstrual History Last Menstrual Date Menses Monthly On Bcp Conception Prior Menses Frequency Hcg Plus Date Menarche Onset Age Delivery Information Delivery Date Delivery Type Labor Anesthesia Weeks Gestation Incision Type Labor Labor Length Hrs Delivered By Post Complications Tubal Sterilization Discharge Date Comments 200 2 40 2 Discharge Information Feeding Method Contraceptive Method Maternal HG B and HCT Levels
--- OUTSIDE RECORDS SUMMARY | 2023-12-29 23:19 | XMS_ITS | Encounter Summary ---
Author Name Unknown Organization [facility] Address [address] [place] [address] Care Team Providers Care Commercial Teller Name Role Phone Carey Vuong MD Primary Care Provider [phone] Carey Vuong MD Unavailable [phone] Carey Vuong MD Unavailable [phone] Mehreen Scott MD Unavailable [phone] Lavern Gonzalez MD Unavailable [phone] Terry Romano MD Unavailable Carey Vuong MD Unavailable [phone] Lavern Gonzalez MD Unavailable [phone] Prema Hitchcock-C Unavailable [phone] Chidi Puckett MD Harriet Lindsay Unavailable Unavailable Aisha Murdock PA-C Unavailable [phone] Lavern Pope MD Unavailable [phone] Lavern Pope MD Unavailable [phone] Elmer Paul MD Unavailable [phone] Elmer Paul MD Unavailable [phone] Batool Torres NP Unavailable CyMarlene Steinberg Randee POWER MACHINE OPERATOR Unavailable Batool Torres NP Unavailable Encounter Details Date Type Department Care Team (Late st Contact Info) Description 05/31/2003 [facility] [place] [address] [place] [address] John Hill MD [address] [facility] [address] [place] [address] EMERGENCY ROOM ENCOUNTER (Primary Dx) Social History Tobacco Use Types Packs/Day Years Used Date Smoking Tobacco: Former Cigarettes 0 10 Cigars Quit: 12/01/19 23 Passive Smoke Exposure: Past Smokeless Tobacco: Never Comments:smokes a single cig ar nightly Alcohol Use Standard Drinks/Week Comments Not Currently 6 (1 standard drink = 0.6 oz pur e alcohol) Education Answer Date Recorded What is the highest level of school you have completed or the highest degree you have received? Some college, no degree 12/12/2019 Sex and Gender Information Value Date Recorded Sex Assigned at Female 12/12/2019 6:30 PM HEALTH INFORMATION SPECIALIST Gender Identity Female 12/12/2019 6:30 PM HEALTH INFORMATION SPECIALIST Sexual Orientation Straight 04/04/2021 12 :18 PM CDT Travel History Travel Start Travel End [place] 12/06/2023 12/12/2023 documented as of this encounter Progress Notes * 05/31/2003 11:59 PM [id number] 00:00 Emergency Department Encounter-[facility] EPIFANIO MORRISON) [Entered: 00: 00Transcription ([facility])] CHIEF COMPLAINT: Right arm pain. 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 The pain was a deep intens e pain with distal paresthesias over the dorsum of the hand. The pain has come and gone, but has rem ained in the same location. She denies any change in the discomfort with movement of the arm. She h as had no pain in the shoulder, neck, chest or elsewhere. She has had no associated shortness of elaine ath, headache or vomiting. When the discomfort was fairly severe she felt generally weak and light-h eaded. She has had no direct trauma to the arm, but has been playing a lot of softball lately. The last time she played was forty-eight hours ago. She is right-handed. PAST MEDICAL HISTORY: The andree ent is reportedly otherwise healthy. MEDICATIONS: control patch. ALLERGIES: None. REVIEW OF S YSTEMS: As per the history of present illness. The patient has had loose stools for the past two mo nths and has felt generally fatigued since starting the control patch. She has had five negati ve tests in the past several weeks. The remainder of the review of systems is negative. PH YSICAL EXAMINATION: The patient is alert and resting quietly. She does not appear acutely uncomforta ble. She is afebrile. Initial blood pressure 127/88 with a pulse rate of 74. Oximetry is 98% on ro om air. HEAD: Reveals no trauma. Pupils equal and reactive. Mouth is moist. Pharynx is clear. NEC K: Supple without adenopathy. She has full range of motion of the neck without discomfort. The jovanna ulders are nontender to palpation. Her right forearm reveals no ecchymosis, erythema or gross swelli ng. She has no tenderness over the arm and has full range of motion of the arm without discomfort. She has good distal pulses and normal distal sensation, although she has subjective paresthesias over the dorsum of the entire hand. She has muscle strength of 5/5 in all hand, wrist, and arm muscle gr oups. LUNGS: Clear. HEART: Regular rate and rhythm with no murmur. EXTREMITIES: Lower extremities reveal no edema and no evidence of deep venous thrombosis. ABDOMEN: Soft and nontender with no gua rding or masses. IMPRESSION: This is a 27-year-old female who has had intermittent right arm pain th at seems neuropathic in origin in that it is a deep intense pain in the arm that comes and goes with associated paresthesias in the distribution of the radial nerve. DISCHARGE INSTRUCTIONS: 1. Avoid lifting, throwing, and other repetitive motions. 2. Ibuprofen 800 mg every six to eight hours with food. 3. Follow-up with primary physician for persistent or uncontrolled symptoms. FINAL DIAGNOSIS: Right arm pain, probable radial neuritis. EPIFANIO MORRISON MD 00: 31 MT: Document: [id number] [place], [place] Name: TEE RAYACHRISTINA Mckay EMERGENCY ROOM ENCOUNTER Page 2 of 2 LCN: ER DSC: 05/31/2003 [place], [place] Name: ELVER DANIELLE Woody MR#: : Admit Date: -63 1975 05/31/2003 Doctor: EPIFANIO MORRISON MD EMERGENCY ROOM ENCOUNTER Page 1 of 2 Electronically filed by Neela Johnson 06/13/2003 3:31 PM documented in this encounter Plan of Treatment Upcoming Encounters Date Type Department Care Team (Late st Contact Info) Description 03/19/2024 3:30 PM CDT Office Visit [facility] [address] [facility] [address] [place] [address] Elmer Paul MD [address] [facility] [address] [place] [address] 04/16/2024 8:30 AM CDT Lab [facility] [address] [facility] [address] [place] [address] 04/20/2024 8:45 AM CDT Office Visit [facility] [address] [facility] [address] [place] [id number] Lavern Pope MD [address] [facility] [address] [place] [address] documented as of this encounter Visit Diagnoses Diagnosis EMERGENCY ROOM ENCOUNTER- Primary documented in this encounter Additional Health Concerns Infection Onset Date Last Indicated Resolved Time Rule Out COVID-19 01/11/202101/1101/11/2021 01/11/2021 9:48 PM HEALTH INFORMATION SPECIALIST documented as of this encounter Care Teams Commercial Teller Relationship Specialty [place] [address] [place] [address] [place] [address] PCP - General 01/15/02 Carey Vuong MD [address] [place] [address] [place] [address] PCP - Assigned PCP 01/13/17 02/02/19 Carey Vuong MD [address] [place] [address] [place] [address] Assigned PCP 01/13/17 12/16/20 Mehreen Scott MD [facility] [address] [address] hardware developer 12/15/19 Lavern Gonzalez MD [address] [place] [id number] Assigned Surgical Provider 09/22/20 04/07/21 [place] [address] [place] [address] Assigned PCP 12/17/20 02/21/21 Carey Vuong MD [address] [place] [address] [place] [address] Assigned PCP 02/22/21 Lavern Gonzalez MD [address] [place] [address] Assigned Surgical Provider 04/29/21 11/03/21 Prema Hitchcock PA-C [address] [place] [address] Assigned Surgical Provider 11/04/21 Chidi Puckett MD [address] [place] [address] Assigned Sleep Provider 02/17/22 10/31/23 Harriet Lindsay Personal Advocate & Liaison (PAL) 06/17/22 Aisha Murdock PA-C [facility] [address] [place] [address] Assigned Neuroscience Provider 06/08/22 11/28/23 Lavern Pope MD [address] [facility] [address] [facility] [address] [place] [id number] Cardiovascular Disease 11/11/22 Lavern Pope MD [address] [facility] [address] [place] [address] Assigned Heart and Vascular Provider 11/16/22 Elmer Paul MD [address] [place] [address] Allergy & Immunology 02/17/23 Elmer Paul MD [address] [place] [address] Assigned Allergy Provider 04/26/23 Batool Torres NP [address] [place] [address] Nurse Practitioner Pulmonary Disease 08/11/23 [place] [address] [place] [address] Nurse Practitioner Nurse Practitioner 10/29/23 Batool Torres NP [address] [facility] [place] [address] Assigned Pulmonology Provider 12/25/23 documented as of this encounter
--- OUTSIDE RECORDS SUMMARY | 2023-12-29 23:19 | XMS_ITS | Encounter Summary ---
Author Name Unknown Organization [facility] Address [address] [place] [address] Care Team Providers Care Automobile Dealer Name Role Phone Carey Vuong MD Primary Care Provider [phone] Carey Vuong MD Unavailable [phone] Carey Vuong MD Unavailable [phone] Mehreen Scott MD Unavailable [phone] Lavern Gonzalez MD Unavailable [phone] Terry Romano MD Unavailable Carey Vuong MD Unavailable [phone] Lavern Gonzalez MD Unavailable [phone] Prema Hitchcock-C Unavailable [phone] Chidi Puckett MD Harriet Lindsay Unavailable Unavailable Aisha Murdock PA-C Unavailable [phone] Lavern Pope MD Unavailable [phone] Lavern Pope MD Unavailable [phone] Elmer Paul MD Unavailable [phone] Elmer Paul MD Unavailable [phone] Batool Torres QUANTITATIVE STRATEGY ANALYST Unavailable [phone] Marlene Benoit QUANTITATIVE STRATEGY ANALYST Unavailable [phone] Batool Torres QUANTITATIVE STRATEGY ANALYST Unavailable Reason for Visit * Reason Onset Date Comments Refill Request 10/16/2009 imitrex Encounter Details Date Type Department Care Team (Late st Contact Info) Description 10/13/2009 MyC Refill [facility] [address] [facility] [place] [address] Carey Vuong MD [address] [facility] [place] [address] Refill Request (imitrex) Social History Tobacco Use Types Packs/Day Years Used Date Smoking Tobacco: Former Cigarettes 10 Q uit: 07/20/2008 Alcohol Use Standard Drinks/Week Comments Yes 0 (1 standard drink = 0.6 oz pur e alcohol) occ--2 per month Sex and Gender Information Value Date Recorded Sex Assigned at Female 12/12/2019 6:30 PM TARGET WORKER Gender Identity Female 12/12/2019 6:30 PM TARGET WORKER Sexual Orientation Straight 04/04/2021 12 :18 PM CDT Travel History Travel Start Travel End [place] 12/06/2023 12/12/2023 documented as of this encounter Miscellaneous Notes * Telephone Encounter - Halina Agosto - 10/16/2009 10:10 AM CSTMessage from MyChart: Danielle Rascon would like a refill of the following medications: SUMATRIPTAN SUCCINATE 25 MG OR TABS [Carey Vuong] Preferred pharmacy: [facility] Comment: I am already out of this medication...The instructions say that I'm suppose to take 2 at the onset of a headache which I do and they go away, but I thought the medication was suppose to last for morethan a day...Is that not accurate...Plus, can I get more than 10 tablets. I went through these in aweek. ET WORKER documented in this encounter Plan of Treatment Upcoming Encounters Date Type Department Care Team (Late st Contact Info) Description 03/19/2024 3:30 PM CDT Office Visit [facility] [address] [facility] [address] [place] [address] Elmer Paul MD [address] [facility] [address] [place] [address] 04/16/2024 8:30 AM CDT Lab [facility] Heart [facility] [address] [facility] [address] [place] [address] 04/20/2024 8:45 AM CDT Office Visit [facility] [address] [facility] [address] [place] [phone] Lavern Pope MD [address] [facility] [address] [place] [address] documented as of this encounter Visit Diagnoses Diagnosis Migraine headaches- Primary Migraine, unspecified, without mention of intractable migraine without mention of status migrainosus documented in this encounter Additional Health Concerns Infection Onset Date Last Indicated Resolved Time Rule Out COVID-19 01/11/2021 01/11/2021 01/11/2021 9:48 PM TARGET WORKER documented as of this encounter Care Teams Automobile Dealer Relationship Specialty Start Date End Date Carey Vuong MD [address] [place] [address] [place] [address] PCP - General 01/15/02 Carey Vuong MD [address] [place] [address] [place] [address] PCP - Assigned PCP 01/13/17 02/02/19 Carey Vuong MD [address] [place] [address] [place] [address] Assigned PCP 01/13/17 12/16/20 Mehreen Scott MD [address] [place] [address] senior human resources representative 12/15/19 Lavern Gonzalez MD [address] [facility] [address] [place] [address] Assigned Surgical Provider 09/22/20 04/07/21 [place] [address] [place] [address] Assigned PCP 12/17/20 02/21/21 [place] [address] [place] [address] [place] [address] Assigned PCP 02/22/21 Lavern Gonzalez MD [address] [place] [address] [address] [place] [address] Assigned Surgical Provider 04/29/21 11/03/21 Prema Hitchcock PA-C [address] [place] [address] Assigned Surgical Provider 11/04/21 Chidi Puckett MD [address] [facility] [address] [place] [address] Assigned Sleep Provider 02/17/22 10/31/23 Harriet Lindsay Personal Advocate & Liaison (PAL) 06/17/22 Aisha Murdock PA-C [facility] [address] [place] [address] Assigned Neuroscience Provider 06/08/22 11/28/23 Lavern Pope MD [address] [facility] [address] [place] [address] Cardiovascular Disease 11/11/22 Lavern Pope MD [address] [facility] [address] [place] [address] Assigned Heart and Vascular Provider 11/16/22 Elmer Paul MD [address] [place] [address] Allergy & Immunology 02/17/23 Elmer Paul MD [address] [place] [address] Assigned Allergy Provider 04/26/23 Batool Torres NP [address] [place] [address] Nurse Practitioner Pulmonary Disease 08/11/23 [place] [address] [place] [address] Nurse Practitioner Nurse Practitioner 10/29/23 Batool Torres NP [address] [place] [address] Assigned Pulmonology Provider 12/25/23 documented as of this encounter
--- OUTSIDE RECORDS SUMMARY | 2023-12-29 23:20 | XMS_ITS | Continuity of Care Document ---
Author Name Unknown Organization [facility] Address [address] [address] [place] [address] Phone Care Team Providers Care Extractor And Wringer Operator Name Role Phone Sheyla BATES, Chandler Unavailable [...] Diagnoses Date Provider Providers Copied on Encounter [facility], [address] [address], [place], [address], [place] tel:[phone] [facility] No Information 4 Sheyla Arteaga. [address] [facility], [facility] [address], [place], [id number] , [place]. tel: [phone] [facility], [address] [address], [place], [address], [place] tel:[phone] [facility] Constipation, unspecified constipation typeDiarrhea, unspecified type 4 Sheyla Arteaga. [address] [facility], [facility] [address], [facility] [place], [address] , [place]. tel: [phone] Referring Provider: Chandler Carrion MD, [address] [facility] [address], [place], [address]. tel:[phone] [facility], [address] [address], [place], [address], [place] tel:[phone] [facility] Melena 4 Sheyla Arteaga. [address] [facility], [facility] [address], [place], [address] , [place]. tel: [phone] [facility], [address] [address], [place], [address], [place] tel:[phone] Dax [facility] GI Symptoms or Concerns (chief complaint) Other dysphagiaHiatal herniaOther dysphagiaDiaphra gmatic hernia without obstruction or gangrene 4 Duane Navas. [address] [facility], [address], [place], [place], [address] , [place]. tel: [phone] Referring Provider: Referral Self, USE FOR SELF REFERRALS. [facility], [address] [address], [place], [address], [place] tel:[phone] [facility] No Information 3 Sheyla Toscanoil. [address] [facility], [facility] [address], [place], [address] , [place]. tel: [phone] [facility], [address] [address], [place], [address], [place] tel:[phone] [facility] No Information 3 Sheyla Arteaga. [address] [facility], [facility] [address], [place], [place], [address] , [place]. tel: [phone] Offic/outpt E&m Estab Mod-hi 2 [facility], [address] [address], [place], [address], [place] tel:[phone] [facility] GI Symptoms or Concerns (chief complaint) Esophageal dysphagiaSmall intestinal bacterial overgrowth (SIBO)Constipati on due to outlet dysfunction 3 Sheyla Arteaga. [address] [facility] [address], [place], [address] , [place]. tel: [phone] Referring Provider: Referral Self, USE FOR SELF REFERRALS. [facility], [address] [address], [place], [address], [place] tel:[phone] [facility] No Information 3 Shakira Love. [address] [facility], [address], [place], [address], [place]. tel: [phone] [facility], [address] [address], [place], [address], [place] tel:[phone] [facility] No Information 3 Shakira Love. [address] [facility], [facility] [address], [place], [address], [place]. tel: [phone] [facility], [address] [address], [place], [address], [place] tel:[phone] [facility] GI Symptoms or Concerns (chief complaint) Abdominal distension (gaseous)General ized abdominal painDietary counseling and surveillance 3 Charli Jolly. [address] [facility], [facility] [address], [place], [address] , [place]. tel: [phone] Referring Provider: Referral Self, USE FOR SELF REFERRALS. [facility], [address] [address], [place], [address], [place] tel:[phone] [facility] No Information 3 Shakira Love. [address] [facility], [facility] [address], [place], [address], [place]. tel: [phone] [facility], [address] [address], [place], [address], [place] tel:[phone] [facility] Diarrhea, unspecified type 3 Shakira Love. [address] [facility], [address], [place], [address], [place]. tel: [phone] [facility], [address] [address], [place], [address], [place] tel:[phone] [facility] No Information 3 Shakira Love. [address] [facility], [facility] [address], [place], [address], [place]. tel: [phone] [facility], [address] [address], [place], [address], [place] tel:[phone] [facility] No Information 3 Shakira Love. [address] [facility], [address], [place], [address], [place]. [phone] [facility], [address] [address], [place], [address], [place] tel:[phone] [facility] Abdominal distension (gaseous) Sep- 3 Anshu Moncada. [address] [facility], [facility] [address], [place], [address] , [place]. [phone] Referring Provider: Antwan Brasher MD, [address] [facility] [address], [place], [address]. [phone] [facility], [address] [address], [place], [id number], [place] tel:[phone] [facility] Abdominal distension (gaseous) Sep- 3 Anshu Moncada. [address] [facility], [facility] [address], [place], [address] , [place]. [phone] Referring Provider: Antwan Brasher MD, [address] [facility] [address], [place], [address]. [phone] Offic/outpt E&m Estab Mod-hi 2 [facility], [address] [address], [place], [address], [place] tel:[phone] [facility] GI Symptoms or Concerns (chief complaint) Previous History Review (chief complaint) Flatulence/gas pain/belchingChr onic constipationHear tburn 3 Shakira Love. [address] [facility], [address], [place], [address], [place]. [phone] Referring Provider: Referral Self, USE FOR SELF REFERRALS. Established Level 3 [facility], [address] [address], [place], [place], [address], [place] tel:[phone] [facility] GI Symptoms or Concerns (chief complaint) Diarrhea, unspecified typeFlatulence/g as pain/belching 2 Cass Rdz. [address] [facility], [address], [place], [address] , [place]. [phone] Referring Provider: Referral Self, USE FOR SELF REFERRALS. Established Level 4 [facility], [address] [address], [place], [address], [place] tel:[phone] [facility] GI Symptoms or Concerns (chief complaint) Flatulence/gas pain/belchingNau seaGeneralized abdominal painChronic constipationIrre gular bowel habitsFrequent bowel movements Apr-2 2 Cass Rdz. [address] [facility], [address], [place], [place], [address] , [place]. tel:[phone] Referring Provider: Referral Self, USE FOR SELF REFERRALS. [facility], [address] [address], [place], [address], [place] tel:[phone] [facility] GI Symptoms or Concerns (chief complaint) History of adenomatous polyp of colonInternal hemorrhoidsEncou nter for screening for malignant neoplasm of colonOther hemorrhoidsPerso nal history of colonic polyps Apr-0 2 Jaciel Hager. [address] [facility], [address], [place], [place], [address] , [place]. [phone] Referring Provider: Referral Self, USE FOR SELF REFERRALS. [facility], [address] [address], [place], [address], [place] tel:[phone] [facility] Esophageal dysphagiaGlobus sensationDysphag ia, unspecifiedOther somatoform disorders Mar-2 9 Cruz Chauhan. [address] [facility], [address], [place], [address] , [place]. [phone] Referring Provider: Referral Self, USE FOR SELF REFERRALS. [facility], [address] [address], [place], [address], [place] tel:[phone] [facility] Dysphagia, unspecified Mar-2 9 Pauline Renae . [address] [facility], [address], [place], [place], [address] , [place]. tel: [phone] [facility], [address] [address], [place], [address], [place] tel:[phone] [facility] Colorectal polypsInternal hemorrhoidsDiarr hea, unspecifiedBenig n neoplasm of cecumBenign neoplasm of transverse colonBenign neoplasm of cecum 9 Jaciel Hager. [address] [facility], [address], [place], [address] , [place]. tel: [phone] Referring Provider: Referral Self, USE FOR SELF REFERRALS. Offic/outpt E&m [facility], [address] [address], [place], [address], [place] tel:[phone] [facility] GI Symptoms or Concerns (chief complaint) Diarrhea, unspecified typeDietary counseling and surveillance Jaciel Hager. [address] [facility], [address], [place], [address] , [place]. tel: [phone] Referring Provider: Carey Navarrete, [facility] [facility], [place], [address]. [phone] [facility], [address] [address], [place], [address], [place] tel:[phone] [facility] Dysphagia, UnspecifiedDysph agia, unspecified Aug- 4 Alejandro Xiao. [address] [facility], [address], [place], [address] , [place]. tel: [phone] Referring Provider: Referral Self, USE FOR SELF REFERRALS. [facility], [address] [address], [place], [address], [place] tel:[phone] [facility] No Information 4 Alejandro Xiao. [address] [facility], [address], [place], [address] , [place]. tel: [phone] Referring Provider: Carey Navarrete, [address] [place], [address]. tel:[phone] Family History Family Member Type Diagnosis Age [...] Insurance type Covered republican ID Authoriza tiisaac(s) [facility] [id number] Social History Type Description Quantity Date Captured [...] date/timeframe: 01/12/2024 ordered Referral Ordered: referred to Commercial Field Inspector Low FODMAP diet, patient with suspecte ordered [...] in at that time. 3. Check out [employer] for more information about underlying causes, etc. [...]
--- OUTSIDE RECORDS SUMMARY | 2023-12-29 23:20 | XMS_ITS | Clinical Summary ---
Author Name Unknown Organization [facility] Address [address], [place] [address] Care Team Providers Care Rotary Envelope Machine Operator Name Role Phone Pcp, Pt Declines MD Primary Care Provider [phone] Source Comments You are receiving this document as you are listed as the primary care provider,follow-up provider, or the patient has been referred to you for consultation.This is in compliance with the Medicare and[facility] EHR Incentive Program,which states Providers who transition their patient to another setting of careor provider of care or refers their patient to another provider of care shouldprovide summary care record for each transition of care or referral. [facility] Allergies Active Allergy Reactions Criticality Noted Date Comments Penicillins Hives High 08/18/2017 Medications Medication Sig Dispensed Refills Start Date End Date Status citalopram (CELEXA) 20 MG tablet Take 20 mg by mouth daily. 0 Active omeprazole (PRILOSEC) 10 MG capsule Take 10 mg by mouth daily. Take 1 hour before a meal. 0 Active Active Problems No known active problems Social History Tobacco Use Types Packs/Day Years Used Date Smoking Tobacco: Never Assessed Sex and Gender Information Value Date Recorded Sex Assigned at Not on file Gender Identity Not on file Sexual Orientation Not on file Last Filed Vital Signs Vital Sign Reading Time Taken Comments Blood Pressure - - Pulse - - Temperature - - Respiratory Rate - - Oxygen Saturation - - Inhaled Oxygen Concentration - - Weight 98.9 kg (218 lb) 08/18/2017 8:13 AM CDT Height 165.1 cm (5' 5) 08/18/2017 8:13 AM CDT Body Mass Index 36.28 08/18/2017 8:13 AM CDT Plan of Treatment Health Maintenance Due Date Last Done Comments Cervical Cancer Screening Due 1974 Colon Cancer Screening Plan Due 1974 Hep C Screening (Preventive Services) 1974 HepB (1) 1974 COVID-19 Vaccine (#1) 1974 HIV Screening (Preventive Services) 1990 Adult Preventive Visit 1992 DTaP/Tdap/Td (1 - Tdap) 1993 Cholesterol 2019 Influenza (#1) 2023 Zoster/Shingles (1 of 2) 2024 HepA Aged Out No longer eligi ble based on patient's age to complete this topic Hib Aged Out No longer eligi ble based on patient's age to complete this topic IPV (Polio) Aged Out No longer eligi ble based on patient's age to complete this topic MCV4 Aged Out No longer eligi ble based on patient's age to complete this topic Pneumococcal Aged Out No longer eligi ble based on patient's age to complete this topic Care Teams Rotary Envelope Machine Operator Relationship Specialty Start Date End Date Pcp, [place] [address] PCP - General 08/18/17
--- OUTSIDE RECORDS SUMMARY | 2023-12-29 23:20 | XMS_ITS | Continuity of Care Document ---
Author Name Unknown Address [address] [place] [address] Phone [phone] Organization [facility] EXTRUDING PRESS ADJUSTER, [id number] Address [address] [place] [address] [address] [place] [address] Assessment Encounter Date Assessment Date Assessment LastModified by Organization Details LastModified Time 10/16/2023 10/16/2023 48 yo female here for [...] reviewing imaging [place] Not available 10/16/2023 17:37:11 Plan of Treatment Reminders Order Date Submit Date Provider Last Modified By Organization Details Last Modified Time Details Appointments G_OFFICE VISIT 2023 02:30P M Dr. Peggy Liang Not available Not available Not available G_OB US 2023 12:45P M [id number] Not available Not available Not available G_OFFICE VISIT 2023 01:30P M LILLIE AVILA DO Not available Not available Not available G_OB VISIT 2023 02:00P M Dr. Peggy Liang Not available Not available Not available Lab wet mount panel, vaginal fluid 2022 023 [place] [id number] rubina_nathalia, [address], [place], [address], 10/16/2023 17:34:08 Referral None recorded. Procedures None recorded. Surgeries None recorded. Imaging None recorded. Medication Orders Metrogel Vaginal 0.75 % (37.5 mg/5 gram) 2022 023 [id number], [address] [place], [place], [phone], 10/16/2023 17:33:53 Diflucan 150 mg tablet 2022 023 [facility] #[id number], [address] [place], [place], [phone], 10/16/2023 17:33:26 Patient TargetsNo targets recorded. Patient Instructions Encounter Date Encounter Id Patient Instructions Last Modified By Organization Details Last Modified Time 10/16/2023 [id number] call if worsenin g or not improving with meds. [place] Not available 10/16/2023 17:37:55 Reason for Referral Endocrinology Referral for H igh hemoglobin A1c level Referring Physician: Mehreen Scott, EXTRUDING PRESS ADJUSTER, Encounter Date: 01/09/2023 Results Created Date Observation Date Name Description Value Unit Range Abnormal Flag LastModifiedBy Organization Detail LastModifiedTime 10/16/2010/16/2023 wet mount panel , vagin al fluid vaginal pH negat macarena < or = to 4.5 Not Available [id number] le_nathaliaa [address] [facility] [address], [place], [address], 10/16/2023 17:33:27 10/16/20 23 10/16/2023 wet mount panel , vagin al fluid clue cells 20% negat macarena <20% Not Available [id number] le_[place] [address] [facility] [address], [place], [address], 10/16/2023 17:33:27 10/16/20 23 10/16/2023 wet mount panel , vagin al fluid trichomonads negati ve negat macarena Not Available [id number] [facility] [address] [facility] [address], [place], [address], 10/16/2023 17:33:27 10/16/20 23 10/16/2023 wet mount panel , vagin al fluid yeast positi ve negat macarena negati ve/pos itive Not Available [id number] le[facility] [address] [facility] [address], [place], [address], 10/16/2023 17:33:27 Result Notes None recorded. Problems Name Status Onset Date Resolution Date Notes Provider Name and Address Organization Details Recorded Time Asthma Active Not Available [facility] 07/10/2020 01:08:47 Notes:07/10/2020: *Problem N bradly: Tobacco *Problem Status: active Problem Notes None recorded. Procedures Surgical History Date Name Laterality Status Provider Name and Address Organization Details Recorded Time 07/25/20 23 Date of Last Mammogram completed Cristopher feliz [place] [facility] [employer] 07/28/2023 08:59:23 05/27/20 22 Date of Last Pap Smear completed Agnes feliz [place] [facility] [employer] 06/06/2022 16:28:21 03/25/20 22 Date of Last Colonoscopy completed Yana feliz [place] [facility] [employer] 01/07/2023 14:34:10 03/25/20 22 Colonoscopy completed Yana feliz [place] [facility] [employer] 01/07/2023 14:34:22 01/05/20 21 LAPAROSCOPIC OVARIAN CYSTECTOMY (S[place]) [place] [address], [place], [address], [place] [facility] [employer] 01/24/2021 15:29:36 08/31/20 18 total [place] [address], [place], [address], [place] [facility] [employer] 12/29/2020 18:17:15 12/18/20 17 colposcopy [place] [address] [address] [facility],[address], [place], [address], [facility] 12/29/2020 18:17:03 12/01/19 12 destruction of lesion [place] [address] [address] [facility],[address], [place], [address], [facility] 12/29/2020 18:17:34 01/06/20 02 Caesarean Section completed Yana Barry null, [facility] EXTRUDING PRESS ADJUSTER 01/07/2023 14:34:22 12/01/19 02 [place] [address] [facility],[address], [place], [address], [facility] 12/29/2020 18:17:20 abdominoplasty [facility] 01/07/2023 14:34:22 arthroscopically aided anterior cruciate ligament reconstruction completed Yanaemily Mckenziespeth null, [facility] EXTRUDING PRESS ADJUSTER 01/07/2023 14:34:22 Tonsillectomy completed Yanaemily Mckenziespeth null, [facility] EXTRUDING PRESS ADJUSTER 01/07/2023 14:34:22 Orthopedic Surgery completed Yanaemily Mckenziespeth null, [facility] EXTRUDING PRESS ADJUSTER 01/07/2023 14:34:22 Abdominoplasty completed Yanaemily Mckenziespeth null, [facility] EXTRUDING PRESS ADJUSTER 01/07/2023 14:34:22 Imaging Results None recorded. Procedure Notes None recorded. Medical Equipment None Reported. Allergies Allergen ID Allergen Name Allergen Category Reaction Reaction Severity Criticality Documentation Date Start Date Code Code System Note Provider Name and Address Organization Details Recorded Time 892231 Medicinal product containin g penicilli n and acting as antibacte rial agent (product) medicatio n Not available Not available Not available 07/07/2020 46551 05 SNOMED Dennise Flemal (SEVERINO) null, [facility] EXTRUDING PR[employer] AD[employer]ER 14:17:02 Medications Name Sig Start Date Stop [...] Updated DateTime 10/16/2023 165.1 cm 37.6 kg/m2 543048.5 9 g 130 mm[Hg] 76 mm[Hg] YASMINE Santos EXTRUDING PRESS ADJUSTER 17:11:24 Date Recorded Systolic blood pressure Diastolic blood pressure Provider Name and Address Organization Details Last Updated DateTime 10/16/2023 118 mm[Hg] 77 mm[Hg] YASMINE Butler EXTRUDING PRESS ADJUSTER 10/16/2023 17:32:41 Social History Question Answer Notes LastModified by Organizat ion Details LastModified Time Tobacco Smoking Status Former Smoker quit 12/2022 [place] [address] [facility],[address], [place], [address], YASMINE Ray EXTRUDING PRESS ADJUSTER 06/09/2023 16:58:47 Do You Have An Advance Directive? No Information not available 12/29/2023 What Is Your Level Of Alcohol Consumption? None Former Information not available 12/19/2023 What Is Your Level Of Caffeine Consumption? 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 Information not available 01/07/2023 Children's Names/ Remberto Sanchez Information not available 10/06/2020 [facility] Informat ion not available 01/07/2023 History Of [...] Medical History Condition Response GI- Hemorrhoids Y Cardiology- Heart Arrhythmia Y Psych- Anxiety Disorder Y Ortho- Arthritis Y Urology- Urinary Incontinence Y GI- Reflux/Ulcers Y Neurology- Headaches/Migraines Y Pulmonary- Asthma Y Psych- Depression Y Cardiology- Heart Disease Ortho-Chronic Back Pain Y Weight Management/Obesity Y Urology- Recurrent Urinary Tract Infecti ons Y ENT- Seasonal Allergies/Allergic Rhiniti s Y Gynecological History Statement/Question Response History of [...] Dennise Miramontes ([place]VER[place]) null, [place] [facility] [employer] 04/04/2021 14:26:27 SARS-COV-2 (COVID-19) vaccine, UNSPECIFIED 02/19/2021 completed Dennise Johnsondorothea (SEVER[place]) trini, [place] - [facility] [employer] AD[employer]ER 04/04/2021 14:26:50 Past Encounters Encounter ID Performer Location Encounter Start Date Encounter Closed Date Diagnosis/Indication [id number] JESSICA BACH MD [id number] [facility] [address] [place] [address] 10/16/2023 16:41:21 10/20/2023 17:20:30 Yeast detected Bacterial vaginosis Vaginal discharge Health Concerns Section Related Observation LastModified by Organization Detai ls LastModified Time None Recorded Concern Status LastModified by Organization Details LastModified Time None Recorded Payers Encounter Date Sequence Insurance Name Policy Number Policy Sprague Covered Member ID Sprague Member ID Guarantor Name 10/16/2023 1 [facility] [id number] Danielle Garza [id number] Danielle Garza Notes Date Note Type Note Provider Name and Address Organization Details Recorded Time 10/16/2023 text/html HPI Notes: here for vaginal discharge, odor. Some itching. Has been going on for months has SIBO (Small intestine bacterial overgrowth), has been on lots of antibiotics. now with yeast in mouth, has had an oral diflucan and a mouthwash that she is doing now. [place] [id number] [facility],[address], [place], [address], YASMINE EXTRUDING PRESS ADJUSTER 10/16/2023 17:38:50 OBGyn Episode No OBEpisode recorded.
--- OUTSIDE RECORDS SUMMARY | 2023-12-29 23:24 | XMS_ITS | Encounter Summary ---
Author Name Unknown Organization [facility] Address [address] [place] [address] Care Team Providers Care Commissary Assistant Name Role Phone Carey Vuong MD Primary Care Provider [phone] Mehreen Scott MD Unavailable [phone] Carey Vuong MD Unavailable [phone] Prema Hitchcock PA-C Unavailable [phone] Chidi Puckett MD Unavai lable Harriet Lindsay Unavailable Unavailable Aisha Murdock PA-C Unavailable [phone] Lavern Pope MD Unavailable [phone] Lavern Pope MD Unavailable [phone] Elmer Paul MD Unavailable [phone] Elmer Paul MD Unavailable [phone] Encounter Details Date Type Department Care Team (Late st Contact Info) Description 06/26/2023 MyC Medical Advice [facility] [address] [place] [address] [address] [place] [phone] Harriet Lindsay Social History Tobacco [...] you attend [employer] or [employer] services? More than 4 times [...] Answer Date Recorded PHQ-2 Score 1 11/19/2022 [facility] - Occupational Stress [...] Sex Assigned at Female 12/12/2019 6:30 PM IMMIGRATION CASE WORKER Gender Identity Female 12/12/2019 6:30 PM IMMIGRATION CASE WORKER Sexual Orientation Straight 04/04/2021 12 :18 [...] * Telephone Encounter - Harriet Lindsay - 06/26/2023 9:51 AM CDT PHQ9 sent to Health System documented in this encounter Plan of Treatment Upcoming Encounters Date Type Department Care Team (Late st Contact Info) Description 03/19/2024 3:30 PM CDT Office Visit [facility] [place] [address] [place] [phone] Elmer Paul MD [address] [facility] [address] [place] [id number] 04/16/2024 8:30 AM CDT Lab [facility] [address] [place] [phone] 04/20/2024 8:45 AM CDT Office Visit [facility] [address] [place] [phone] Lavern Pope MD [address] [facility] [address] [place] [id number] documented as of this encounter Visit Diagnoses Not on filedocumented in this encounter Additional Health Concerns Assessment Noted Time PHQ-9 Depression Total Score: 0 07/04/20 23 1:50 PM CDT documented as of this encounter Care Teams Commissary Assistant Relationship Specialty Start Date End Date Carey Vuong MD [address] [place] [address] [place] [id number] PCP - General 01/15/02 Mehreen Scott MD [address] [place] [phone] watchmaking teacher 12/15/19 Carey Vuong MD [address] [place] [address] [place] [phone] Assigned PCP 02/22/21 Prema Hitchcock PA-C [address] [place] [address] Assigned Surgical Provider 11/04/21 Chidi Puckett MD [address] [place] [address] Assigned Sleep Provider 02/17/22 10/31/23 Harriet Lindsay Personal Advocate & Liaison (PAL) 06/17/22 Aisha Murdock PA-C [facility] [address] [place] [address] Assigned Neuroscience Provider 06/08/22 11/28/23 Lavern Pope MD [address] [place] [address] Cardiovascular Disease 11/11/22 Lavern Pope MD [address] [place] [address] Assigned Heart and Vascular Provider 11/16/22 Elmer Paul MD [address] [place] [address] Allergy & Immunology 02/17/23 Elmer Paul MD [address] [place] [address] Assigned Allergy Provider 04/26/23 documented as of this encounter
[2023-12-29 23:25] LABS: C Reactive Protein* 0.7 mg/dL (0.5-1.0)
[2023-12-29 23:32] LABS: Strep A DNA Probe* NOT DETECTED (Not Detectd)
[2023-12-29 23:45] LABS: PCR FLU A Negative PCR FLU A (Negative); PCR FLU B Negative PCR FLU B (Negative); SARS PCR* Negative SARS-CoV-2 (Negative)
== END 2023-12-30 00:52 | disposition home or self-care (01) ==
PROVIDERS: Emergency Provider Family Medicine
DX: H92.02 Otalgia, left ear (principal); R51.9 Headache, unspecified
CPT/HCPCS: 36415; 85025; 86140; 87631; 87651; 99283; 99284